=== PATIENT | female | born 1950 | race Caucasian/White ===

== ENCOUNTER 2023-12-31 17:14 | Observation (INO) | payer MEDICARE, SELFPAY ==
[2023-12-31] VITALS (19 sets, daily range): BP systolic 145–183; BP diastolic 70–90; PULSE 69–91; RESP 15–27; TEMP 36.3–37.1; O2SAT 100; BMI 16.9; BMI 15.6
--- NOTE | 2023-12-31 17:23 | XR_ITS ---
PROCEDURE INFORMATION: Exam: XR Chest Exam date and time: 12/31/2023 5:26 PM Age: 73 years old Clinical indication: Dyspnea TECHNIQUE: Imaging protocol: Radiologic exam of the chest. Views: 1 view. COMPARISON: No relevant prior studies available. FINDINGS: Lungs: Hyperinflated lungs consistent with emphysema. No consolidation. Mild left mid to lower lung linear scar versus atelectasis. Pleural spaces: Normal. No pleural effusion. No pneumothorax. Heart/Mediastinum: Coronary artery stent in place. No cardiomegaly. Vasculature: Tortuous atherosclerotic thoracic aorta. Bones/joints: Unremarkable. IMPRESSION: Hyperinflated lungs consistent with emphysema. No consolidation.
[2023-12-31 17:28] LABS: Coronavirus 19, PCR Not Detected (NotDetected); Influenza A, PCR Not Detected (NotDetected); Influenza B, PCR Not Detected (NotDetected)
[2023-12-31 17:30] LABS: Basophils % 0.5 % (0.1-2.0); Eosinophils % 0.4 % (0.1-12.0); Hematocrit 21.1 % (37.0-47.0); Lymphocytes # 1.5 K/mm3 (0.7-4.5); Lymphocytes % 19.2 % (10-50); Mean Corpuscular HGB Conc 28.3 g/dL (31.8-35.4); Mean Corpuscular Hemoglobin 19.6 pg (27.0-31.2); Mean Corpuscular Volume 69.2 fl (81-99); Mean Platelet Volume 7.4 fl (7.4-10.4); Monocytes # 0.5 K/mm3 (0.1-1.0); Monocytes % 5.8 % (1.7-9.3); Neutrophils # 5.9 K/mm3 (1.8-7.8); Platelet Count 486 K/mm3 (142-424); Red Blood Count 3.05 M/mm3 (4.20-5.40); Red Cell Distribution Width 17.7 % (11.5-17.5); White Blood Count 7.9 K/mm3 (4.8-10.8)
[2023-12-31 17:30] LABS: Lactate Venous 1.1 mmol/L (0.4-2.0); VBG Base Excess -3.5 mmol/L (-2.4-2.3); VBG HCO3 23.6 mmol/L (23-30); VBG Oxygen Saturation 65.1 % (50-70); VBG PH 7.26 mmol/L (7.31-7.41); VBG Total CO2 25.2 mmol/L (23-27)
[2023-12-31 17:36] LABS: Alanine Aminotransferase 21 U/L (12-78); Albumin/Globulin Ratio 1.3 (1.1-1.8); Alkaline Phosphatase 91 U/L (38-126); Anion Gap 11.8 mEq/L (5-15); Aspartate Amino Transferase 37 U/L (14-36); Bilirubin,Total 0.3 mg/dl (0.2-1.3); Blood Urea Nitrogen 28 mg/dl (7-17); Calcium 9.1 mg/dl (8.4-10.2); Carbon Dioxide 28 mmol/L (22.0-30.0); Chloride 98 mmol/L (98-107); Estimated Glomerular Filt Rate 49 ml/min (>60); GFR (African American) 59 ML/MIN (>60); Glucose 138 mg/dl (74-100); Potassium 4.8 mmoL/L (3.5-5.1); Sodium 133 mmol/L (136-145)
--- NOTE | 2023-12-31 17:40 | HMH.EDCP ---
Discharge Plan Disposition Patient Disposition: Admitted Clinical Impressions Clinical Impression: Acute hypercapnic respiratory failure, Anemia, Acute exacerbation of chronic obstructive airways disease Discharge ED Provider: Macarena Mulilns HPI General Chief Complaint: Shortness of Breath/Dyspnea Stated Complaint: SOA Time Seen by Provider: 12/31/23 17:23 History of Present Illness HPI narrative: Patient is a 73-year-old female presenting today with respiratory distress. She and her family who accompanied her at the bedside recently moved [place]. She has a known history of heart failure family does not know exactly what kind they are unsure of the exact medications that she is on. Apparently her oxygen tubing with her COPD which she is normally on 3 L nasal cannula ran out recently and the call primarily was followed that purpose. However EMS got to her and she was in severe respiratory distress placed on positive pressure ventilation which significantly improved her from their history no other medications were given and she arrived to the emergency department. She is in severe respiratory distress unable to speak in full sentences and history is limited. Secondary history is obtained from daughters at the bedside. Related Data Allergies Allergy/AdvReac Type Severity Reaction Status Date / Time No Known Allergies Allergy Verified 12/31/23 17:47 [facility] Disclaimer: The information contained in this section may have been updated after the patient was seen, as this information can be updated by other users. Social History Smoking Status: Current every day smoker alcohol intake: never current occupational status: other Travel in the last 8 weeks: None ROS Obtained: Yes All systems reviewed & no additional complaints except as documented Physical Exam General General appearance: in distress Respiratory Respiratory exam: Present other (Tachypneic speaking in one-word sentences oxygen saturations 100% on 3 L very minimal air movement bilaterally no significant wheezing there is prolonged expiratory phase) Cardiovascular Cardiovascular exam: Present tachycardia Abdominal Exam Abdominal exam: Present soft; Absent distention or tenderness Neurological Exam Neurological exam: Present alert, oriented X3 and other (Lethargic decreased level of alertness but able to answer questions appropriately nonfocal neurologic exam) HEART Score HEART Score HEART Score assessment performed?: Yes History (anamnesis): Slightly suspicious ECG: Non-specific disturbance Age: >65 years Risk factors: Atherosclerosis history Troponin: </= normal limit HEART Score: 5 Procedures Miscellaneous Procedure Procedure Performed: Limited cardiac ultrasound Indication: Dyspnea Identified structures: The heart was visualized in the parasternal long axis, parastenal short axis, apical four chamber and subxyphiod views. The IVC was visualized in the short axis and long axis at its entry into the right atrium. Findings: Normal LVEF no pericardial effusion no evidence of severe right heart strain Impression: Unremarkable limited bedside ultrasound of the heart Images were saved to permanent archive The study was technically adequate CPT: 81716-08 This study was performed by ak, and I personally interpreted all images/videos. Based on my clinical judgement, these images were added and did not necessitate further imaging. Limited lung ultrasound A focused ultrasound exam of the pleural spaces was performed to evaluate for pneumothorax, pulmonary edema, pleural effusion and/or consolidation. The ultrasound was performed with the following indications, as noted in the H&P: Dyspnea Identified structures: Right and left thoracic cavities were examined. Findings: Bilateral lung sliding present scant B-lines throughout no significant pleural effusions or focal consolidations bilaterally Impression: Nonspecific bilateral scant B-lines no evidence of pleural effusion consolidation or pneumothorax Images were saved to permanent archive The study was technically adequate CPT 20855-36 This study was performed by ak, and I personally interpreted all images/videos. Based on my clinical judgement, these images were adequate and did not necessitate further imaging. Critical Care Critical Care Time Critical Care Time: Yes Attestation: On , the high probability of a clinically significant, sudden or life threatening deterioration of the following system(s) required my full and direct attention, intervention and personal management. The time I documented below is in addition to time spent performing reported procedures but includes the following listed in this critical care notation. Total Time Total Critical Care Time: 65 Medical Decision Making Vasquez Inquiry Pt receiving controlled substance: No Vital Signs Vital Signs: 12/31/23 17:15 12/31/23 17:30 12/31/23 18:00 Temperature 98.8 F Temperature Source Axillary Pulse Rate 69 72 Pulse Rate [Right Radial] 71 Respiratory Rate 24 15 Blood Pressure 150/80 H 165/84 H Blood Pressure [Right Arm] 150/80 H Blood Pressure Mean [Right Arm] 103 Blood Pressure Source [Right Arm] Automatic Cuff Blood Pressure Position [Right Arm] Supine 02 Sat by Pulse Oximetry 100 100 100 Oxygen Delivery Method BiPAP BiPAP 12/31/23 18:30 Temperature Temperature Source Pulse Rate 72 Pulse Rate [Right Radial] Respiratory Rate 17 Blood Pressure 145/70 H Blood Pressure [Right Arm] Blood Pressure Mean [Right Arm] Blood Pressure Source [Right Arm] Blood Pressure Position [Right Arm] 02 Sat by Pulse Oximetry 100 Oxygen Delivery Method Lab Data Lab results reviewed: Yes I reviewed the patient's lab results. Labs: Lab Results 12/31/23 17:15: WBC 7.9, RBC 3.05 L, Hgb 6.0 L*, Hct 21.1 L, MCV 69.2 L, MCH 19.6 L, MCHC 28.3 L, RDW 17.7 H, Plt Count 486 H, MPV 7.4, Neut % (Auto) 74.0, Lymph % (Auto) 19.2, [place] % (Auto) 5.8, Eos % (Auto) 0.4, Baso % (Auto) 0.5, Neut # (Auto) 5.9, Lymph # (Auto) 1.5, [place] # (Auto) 0.5, Eos # (Auto) 0.0, Baso # (Auto) 0.0, D-Dimer 0.34, Sodium 133 L, Potassium 4.8, Chloride 98, Carbon Dioxide 28, Anion Gap 11.8, BUN 28 H, Creatinine 1.10 H, Estimated GFR 49 L, Est GFR ( Amer) 59, Glucose 138 H, Calcium 9.1, Total Bilirubin 0.3, AST 37 H, ALT 21, Alkaline Phosphatase 91, Troponin I < 0.01, NT-Pro-B Natriuret Pep 1460 H, Total Protein 7.0, Albumin 4.0, Globulin 3.0, Albumin/Globulin Ratio 1.3, SARS-CoV-2 (PCR) Not detected, Influenza A Untype (PCR) Not detected, Influenza Type B (PCR) Not detected 12/31/23 17:24: VBG pH 7.26 L, VBG pCO2 54.0 H, VBG pO2 37.0, VBG HCO3 23.6, VBG Total CO2 25.2, VBG O2 Saturation 65.1, VBG Base Excess -3.5 L, VBG Lactic Acid 1.1 12/31/23 17:45: Crossmatch (AHG) See Detail 12/31/23 17:15 12/31/23 17:15 Response Orders (Tests/Meds): ED MEDICATIONS Generic Name Dose Route Start Last Admin Trade Name Freq PRN Reason Stop Dose Admin Sodium Chloride 250 mls @ 25 mls/hr 12/31/23 18:00 Sod Chlor 0.9% 250ml Bag IV 01/01/24 17:59 .Q10H GRACIE Discontinued Medications Generic Name Dose Route Start Last Admin Trade Name Quan PRN Reason Stop Dose Admin Albuterol/Ipratropium 3 ml 12/31/23 17:23 12/31/23 17:42 Ipratropium/Albuterol 3 Ml Neb IH 12/31/23 17:24 3 ml ONCE ONE Administration Magnesium Sulfate 2 gm in 50 mls @ 50 mls/hr 12/31/23 17:23 12/31/23 17:47 Magnesium Sulfate 2gm/50ml Premix IV 12/31/23 18:22 50 mls/hr ONCE ONE Administration Methylprednisolone Sodium Succinate 125 mg 12/31/23 17:23 12/31/23 17:47 Methylprednisolone Sod Succ 125mg Vial IV 12/31/23 17:24 125 mg ONCE ONE Administration ORDERS Category Date Time Status Transfuse RBC's [Red Blood Cells] Stat K 12/31/23 17:45 Results Type and Screen Stat K 12/31/23 17:45 Results CXR --portable [XR chest portable] Stat Exams 12/31/23 17:23 Completed BNP [NT Pro Brain Natriuretic Pep.] Stat Lab 12/31/23 17:15 Completed CBC w/Auto Diff [Complete Blood Count Auto Diff] Stat Lab 12/31/23 17:15 Completed CMP [Comprehensive Metabolic Panel] Stat Lab 12/31/23 17:15 Completed D-Dimer Stat Lab 12/31/23 17:15 Completed Occult Blood,Stool Stat Lab 12/31/23 17:34 Ordered Rapid PCR Covid and Flu A/B Stat Lab 12/31/23 17:15 Completed Trop I [Troponin I] Stat Lab 12/31/23 17:15 Completed Troponin I Q3H Lab 12/31/23 20:30 Ordered Troponin I Q3H Lab 12/31/23 23:30 Ordered Blood Culture Stat Micro 12/31/23 18:10 Received Venous Blood Gas Stat RT 12/31/23 17:24 Completed Venous Blood Gas Stat RT 12/31/23 18:47 Ordered ECG Data Tracing #1: Attestation: I reviewed this ECG and interpreted as documented below: ECG Narrative: Ventricular rate of 70 normal sinus rhythm normal axis no acute ischemic changes no significant conduction abnormalities MDM Narrative Medical Decision Narrative: Critically ill-appearing 73-year-old female presenting in respiratory distress with increased work of breathing oxygen saturations appear to be normal. Venous blood gas was performed which did demonstrate pH of 7.25 with a pCO2 of 54. She is on BiPAP at this point. Limited bedside ultrasound was performed which did not show any severe right heart strain or diminished LVEF or pericardial effusion there was some scant B-lines working diagnosis is COPD exacerbation but heart failure pneumonia pulm embolism are certainly in the differential as well. On her gas her hemoglobin was less than 7 we will get a type and screen and do a rectal exam as well she does appear pale on my evaluation. But gives no history of any type of melena and she is not on any blood thinners or anticoagulants/antiplatelet agents to her knowledge. Reassessment 650 patient significantly improving on BiPAP we will repeat a blood gas soon and may trial her off her BiPAP soon. Chest x-ray was performed to person interpreted shows no obvious consolidation but will still cover with antibiotics given her moderate to severe COPD exacerbation. Will initiate Rocephin and azithromycin. D-dimer below threshold for CT PE pulm embolism is unlikely. BNP mildly elevated which is nonspecific may require further evaluation from a cardiac standpoint given her unclear history and lack of records here. Patient was significantly anemic I do not have a baseline hemoglobin after discussion with the patient she denies having any melena and being on any antiplatelets or anticoagulants. She refused a rectal exam but from a history standpoint she does not state that she has had any GI involvement. Patient did state that she had anemia requiring transfusion several years ago in [facility] she states that he had an investigation including endoscopies which did not yield any diagnosis or cause of her bleeding. Patient does have a remote history of uterine or cervical cancer and had a total hysterectomy about 20 years ago but states has been in remission has not had any other symptoms of that. Malignancy is certainly the differential but no emergent workup at this is indicated. 2 units of PRBCs have been ordered and pending currently she is hemodynamically stable. Patient will need to be admitted for further evaluation and management and I will discuss the case with hospital medicine for further treatment.
[2023-12-31 17:41] LABS: D-Dimer 0.34 ug/mL (0.0-0.5)
[2023-12-31] MEDS: IPRATROPIUM/ALBUTEROL 3 ML NEB IH ×2 (17:42→23:09)
--- NOTE | 2023-12-31 17:43 | PC.NURSE ---
hemoglobin of 6, aware of
--- NOTE | 2023-12-31 17:44 | ECG_ITS ---
APPROVED REPORT Exam: Resting ECG HR:70 bpm ECG Measurements Heart Rate 70 AXES WI 128 P 75 QRSd 86 QRS 85 QT 385 T 83 QTc 406 Conclusion SINUS RHYTHM POSSIBLE RIGHT ATRIAL ENLARGEMENT [0.25mV P-WAVE] BORDERLINE ECG UNCONFIRMED REPORT Electronically signed by : Juan Manuel Mullins, 01/01/2024 23:14:34
[2023-12-31] MEDS: MAGNESIUM SULFATE IN WATER 2 GM/50 ML PIGGYBACK IV (17:47)
[2023-12-31] MEDS: METHYLPREDNISOLONE SOD SUCC 125MG VIAL 125 MG IV (17:47)
[2023-12-31 17:50] LABS: NT Pro Brain Natriuretic Pep. 1460 pg/mL (0-125); Troponin I < 0.01 ng/ml (0.00-0.034)
[2023-12-31] MEDS: CEFTRIAXONE SODIUM 1 GM in 0.9 % SODIUM CHLORIDE 50 ML IV (19:03)
[2023-12-31 19:11] LABS: Lactate Venous 1.4 mmol/L (0.4-2.0); VBG Base Excess -3.4 mmol/L (-2.4-2.3); VBG Oxygen Saturation 81.3 % (50-70); VBG PCO2 39.7 mmol/L (35-51); VBG PH 7.36 mmol/L (7.31-7.41); VBG PO2 51.8 mmol/L (28-40); VBG Total CO2 23.2 mmol/L (23-27)
--- NOTE | 2023-12-31 19:30 | PC.NURSE ---
Lab called and informed that blood products are ready for patient administration. TRN spoke with ER physician Dr. Mullins and he states that there is not an emergent need for transfusion of blood products due to patient being hemodynamically stable. He requests report to be called and blood to be administered when patient gets settled on the floor. Charge nurse Kimberly Santiago, roundhouse supervisor Vanessa navarro. Return phone call to lab per TRN, spoke with Junie, and informed of blood administration plan.
[2023-12-31] MEDS: AZITHROMYCIN 500 MG in 0.9 % SODIUM CHLORIDE 250 ML 250 MG IV (19:39)
--- NOTE | 2023-12-31 19:40 | CT_ITS ---
PROCEDURE INFORMATION: Exam: CT Chest Without Contrast; Diagnostic Exam date and time: 12/31/2023 8:30 PM Age: 73 years old Clinical indication: Shortness of breath; Additional info: Abnormal cxr, tobacco > 50 yrs TECHNIQUE: Imaging protocol: Diagnostic computed tomography of the chest without contrast. Radiation optimization: All CT scans at this facility use at least one of these dose optimization techniques: automated exposure control; mA and/or kV adjustment per patient size (includes targeted exams where dose is matched to clinical indication); or iterative reconstruction. COMPARISON: CR XR CHEST PORTABLE 12/31/2023 5:26 PM FINDINGS: Lungs: Moderate centrilobular emphysema. Linear scar versus atelectasis in the anterior left upper lobe. No consolidation or nodules. Mild bronchial wall thickening. Pleural spaces: Unremarkable. No pneumothorax. No pleural effusion. Heart: Unremarkable. No cardiomegaly. No pericardial effusion. Coronary arteries: Severe coronary artery calcification. Lymph nodes: Unremarkable. No enlarged lymph nodes. Vasculature: Moderate thoracic aortic and arch vessel atherosclerotic disease without aneurysm. Bones/joints: Unremarkable. No acute fracture. Soft tissues: Unremarkable. IMPRESSION: 1. Mild bronchial wall thickening is likely due to bronchitis. No consolidation. 2. Moderate emphysema. COMMENTS: The presence of pulmonary emphysema on CT is an independent risk factor for lung cancer. In the absence of a history or active diagnosis of lung cancer, it is recommended that this patient with emphysema be evaluated for enrollment in a low dose CT lung cancer screening program.
--- NOTE | 2023-12-31 19:46 | PC.NURSE ---
called and spoke with rt sav. discussed need for sputum collection. states he will obtain once she arrives to the floor.
--- NOTE | 2023-12-31 19:53 | P.HP_ITS ---
History of Present Illness *Admission Date: 12/31/23 *Reason for visit:: Shortness of air *History of present illness: This is a 73-year-old female that presents to [facility] emergency department with concerns of shortness of air over several days not improving with home oxygen requirement 3 L via nasal cannula. Her past medical history is significant for ongoing tobacco dependence, COPD, CHF, CAD, chronic anemia and BMI 16. She is accompanied by her daughter who assists with the history. She reports chronic COPD on home oxygen (3 L) with increase air hunger, cough and debility over the last few days. She denies fever, chills, hemoptysis, retrosternal chest pain or falls. She reports no associated abdominal pain, hematemesis, melena or hematochezia. Today she became very weak so she was brought to the ED for evaluation. In the ED her oxygen saturations were low and she received NIPPV therapy in the ED. Imaging is concerning for bronchitis. Her hemoglobin came back at 6 and her MCV was 69. She reports a colonoscopy 5 to 7 years ago and EGD greater than 10 years ago. [facility] Medical History (Updated 12/31/23 @ 19:59 by Percy Zuniga MD) BMI less than 19,adult (HFpEF) heart failure with preserved ejection fraction Tobacco dependence Dependence on supplemental oxygen Coronary artery disease Iron deficiency anemia COPD (chronic obstructive pulmonary disease) Surgical History (Updated 12/31/23 @ 23:45 by Percy Zuniga MD) Hx of esophagogastroduodenoscopy History of colonoscopy History of hysterectomy History of heart artery stent S/P cardiac catheterization Family History (Updated 12/31/23 @ 23:46 by Percy Zuniga MD) Father Alzheimer disease Mother Stroke Social History (Updated 12/31/23 @ 21:27 by Bethany Sinclair RN) Smoking Status: Former smoker tobacco type: cigarettes packs per day: 1 years smoked: 60 smoking status stop date: 3 years ago alcohol intake: former current occupational status: other Travel in the last 8 weeks: None Review of Systems Review of Systems Review of systems:: pertinent systems reviewed and negative unless documented below Meds Home Medications and Allergies Home Medications Medication Instructions Recorded Confirmed Type atorvastatin 40 mg tablet 40 mg PO HS 12/31/23 12/31/23 History bupropion HCl 150 mg tablet,12 hr 150 mg PO BID 12/31/23 12/31/23 History sustained-release carvedilol 6.25 mg tablet 6.25 mg PO DAILY 12/31/23 12/31/23 History clopidogrel 75 mg tablet 75 mg PO DAILY 12/31/23 12/31/23 History hydrocodone 7.5 mg-acetaminophen 1 tab PO TID PRN Moderate Pain 12/31/23 12/31/23 History 325 mg tablet (Scale Score 5-6) isosorbide mononitrate 30 mg 30 mg PO DAILY 12/31/23 12/31/23 History tablet,extended release 24 hr meloxicam 15 mg tablet 15 mg PO DAILY 12/31/23 12/31/23 History montelukast 10 mg tablet 10 mg PO DAILY 12/31/23 12/31/23 History sertraline 100 mg tablet 200 mg PO DAILY 12/31/23 12/31/23 History New Prescriptions to Start Prescriptions: Allergies Allergy/AdvReac Type Severity Reaction Status Date / Time No Known Allergies Allergy Verified 12/31/23 17:47 Exam Data for Last 24 hours Vital signs and Labs for Last 24 Hours: Temp Pulse Resp BP Pulse Ox O2 Del Method 98.8 F 72 17 145/70 H 100 BiPAP 12/31/23 17:15 12/31/23 18:30 12/31/23 18:30 12/31/23 18:30 12/31/23 18:30 12/31/23 17:30 Laboratory Results - last 24 hr 12/31/23 17:15: WBC 7.9, RBC 3.05 L, Hgb 6.0 L*, Hct 21.1 L, MCV 69.2 L, MCH 19.6 L, MCHC 28.3 L, RDW 17.7 H, Plt Count 486 H, MPV 7.4, Neut % (Auto) 74.0, Lymph % (Auto) 19.2, [place] % (Auto) 5.8, Eos % (Auto) 0.4, Baso % (Auto) 0.5, Neut # (Auto) 5.9, Lymph # (Auto) 1.5, [place] # (Auto) 0.5, Eos # (Auto) 0.0, Baso # (Auto) 0.0, D-Dimer 0.34, Sodium 133 L, Potassium 4.8, Chloride 98, Carbon Compa xide 28, Anion Gap 11.8, BUN 28 H, Creatinine 1.10 H, Estimated GFR 49 L, Est GFR ( Amer) 59, Glucose 138 H, Calcium 9.1, Total Bilirubin 0.3, AST 37 H , ALT 21, Alkaline Phosphatase 91, Troponin I < 0.01, NT-Pro-B Natriuret Pep 1460 H, Total Protein 7.0, Albumin 4.0, Globulin 3.0, Albumin/Globulin Ratio 1.3, SARS-CoV-2 (PCR) Not detected, Influenza A Untype (PCR) Not detected, Influenza Type B (PCR) Not detected 12/31/23 17:18: Blood Type Confirm O Positive 12/31/23 17:24: VBG pH 7.26 L, VBG pCO2 54.0 H, VBG pO2 37.0, VBG HCO3 23.6, VBG Total CO2 25.2, VBG O2 Saturation 65.1, VBG Base Excess -3.5 L, VBG Lactic Acid 1.1 12/31/23 17:45: Blood Type O Positive, Antibody Screen Negative, Crossmatch (AHG) See Detail 12/31/23 19:02: VBG pH 7.36, VBG pCO2 39.7, VBG pO2 51.8 H, VBG HCO3 22.0 L, VBG Total CO2 23.2, VBG O2 Saturation 81.3 H, VBG Base Excess -3.4 L, VBG Lactic Acid 1.4 I & O for Last 24 hours: Intake & Output 12/28/23 12/29/23 12/30/23 12/31/23 23:59 23:59 23:59 23:59 Weight 40.823 kg Constitutional Constitutional: no acute distress, thin, chronically ill appearing, disheveled and cooperative *Routine HEENT Exam Head: Present normocephalic and atraumatic Eye: Present EOMI and PERRL ENT: Present mucous membranes dry *Routine Neck Exam Neck: Present supple; Absent JVD or lymphadenopathy *Routine Respiratory Exam Respiratory: Present accessory muscle use, rhonchi, wheezes and diminished air movement *Routine Cardiovascular Exam Cardiovascular: Present RRR and murmur; Absent JVD *Routine Abdominal Exam Abdominal: Present soft and normoactive bowel sounds; Absent tenderness *Routine Rectal Exam Rectal:: deferred *Routine Genitalia Exam Genitalia:: deferred *Routine Extremities Exam Extremities: Present full ROM, pulses intact and extremity cold to touch *Routine Skin Exam Skin: Present intact and pallor; Absent rash *Routine Neurological Exam Neurological: Present alert, oriented X3, moving all extremities, vision grossly intact and hearing grossly intact; Absent sensory deficit or motor deficit Routine Psychiatric Exam Psychiatric: Present normal affect, normal thought process, cooperative, good insight and good judgment Assessment and Plan *Assessment and plan (1) Acute respiratory failure with hypoxia and hypercapnia: Status: Acute Category: Medical Code(s): J96.01 - Acute respiratory failure with hypoxia; J96.02 - Acute respiratory failure with hypercapnia (2) Acute exacerbation of chronic obstructive airways disease: Status: Acute Category: Medical Code(s): J44.1 - Chronic obstructive pulmonary disease with (acute) exacerbation (3) Dependence on supplemental oxygen: Status: Acute Category: Medical Code(s): Z99.81 - Dependence on supplemental oxygen (4) Tobacco dependence: Status: Acute Category: Medical Code(s): F17.200 - Nicotine dependence, unspecified, uncomplicated (5) Iron deficiency anemia: Status: Acute Category: Medical Code(s): D50.9 - Iron deficiency anemia, unspecified (6) Coronary artery disease: Status: Acute Category: Medical Code(s): I25.10 - Atherosclerotic heart disease of [place] coronary artery without angina pectoris (7) Acute on chronic heart failure with preserved ejection fraction (HFpEF): Status: Acute Category: Medical Code(s): I50.33 - Acute on chronic diastolic (congestive) heart failure (8) BMI less than 19,adult: Status: Acute Category: Medical Code(s): Z68.1 - Body mass index [BMI] 19.9 or less, adult Plan This is a 73-year-old female with presenting shortness of air and fatigue with history of COPD and ongoing tobacco dependence that presented with a hemoglobin 6.0 with no identified bleeding or abdominal pain. Blood transfusion is ongoing with oxygen support and nebulizer therapy. Problems addressed as follows: Acute on chronic hypoxic and hypercapnic respiratory failure COPD exacerbation Tobacco dependence Pulse oximetry monitoring Oxygen therapy to maintain appropriate oxygen saturations NIPPV therapy ED imaging consistent with emphysema and bronchitis Trending labs and inflammatory markers Tobacco cessation education Doxycycline 100 mg p.o. twice daily Vandana/Suze inhalation therapy ICS therapy IV methylprednisolone therapy Nicotine replacement therapy Iron deficiency anemia Telemetry monitoring Presenting hemoglobin 6.0 Previous colonoscopy and EGD reported Trending CBC PPI therapy 2 units PRBCs (12/31/2023) Avoiding NSAIDs Avoiding antiplatelet therapy Acute on chronic HFpEF CAD Telemetry monitoring Avoiding antiplatelet therapy with hemoglobin of 6 Echocardiogram ordered ED ECG sinus rhythm rate 70 with QTc 406 MS Statin therapy Beta-uriel therapy Long-acting nitrate therapy Generalized anxiety disorder Routine nursing interaction SSRI therapy ED ECG with [id number] MS BMI 16 Nutrition education Calorie appropriate diet with nutritional supplementation Complicates all aspects of care VTE prophylaxis: SCD's CODE STATUS: Full code POA: Cammey-daughter The length of stay for this patient will be 2 midnights or greater due to above diagnoses.
--- NOTE | 2023-12-31 20:07 | PC.NURSE ---
report called to LOKESH Torres
[2023-12-31 20:50] LABS: Iron 23 ug/dL (37-170)
[2023-12-31 20:59] LABS: Total Iron Binding Capacity 454 ug/dL (265-497)
[2023-12-31 21:09] LABS: Vitamin B12 > 1000 pg/mL (239-931)
[2023-12-31 21:14] LABS: ABG Base Excess -4.6 mmol/L (-2.4-2.3); ABG HCO3 20.7 mmhg (22.0-26.0); ABG Oxygen Saturation 100 % (90-100); ABG PCO2 37.2 mmhg (35.0-45.0); ABG PH 7.36 mmol/L (7.35-7.45); ABG PO2 148.5 mmhg (80-100); ABG TCO2 21.9 mmhg (23-27)
[2023-12-31 21:16] LABS: Allen's Test Y; Oxygen 50 %; Source Left Radial
[2023-12-31 21:37] LABS: Troponin I < 0.01 ng/ml (0.00-0.034)
[2023-12-31] MEDS: 0.9 % SODIUM CHLORIDE 250 ML 25 ML IV (22:00)
[2023-12-31] MEDS: SODIUM CHLORIDE 3% 15ML NEB 3 ML IH (23:11)
[2023-12-31] MEDS: ATORVASTATIN 40MG TABLET 40 MG PO (23:34)
[2023-12-31] MEDS: HYDROCODONE/APAP 5/325 MG TABLET 1 TAB PO (23:34)
[2023-12-31] MEDS: PANTOPRAZOLE 40MG TABLET 40 MG PO (23:34)
--- NOTE | 2023-12-31 23:45 | PC.NURSE ---
PATIENT GIVEN SODIUM CHLORIDE TREATMENT BUT UNABLE TO PRODUCE SPUTUM
[2024-01-01] VITALS (20 sets, daily range): BP systolic 136–184; BP diastolic 65–100; PULSE 70–94; RESP 15–25; TEMP 36.6–37.1; O2SAT 95–100; BMI 15.6
[2024-01-01] MEDS: 0.9 % SODIUM CHLORIDE 250 ML 25 ML IV (00:40)
[2024-01-01 00:47] LABS: Troponin I < 0.01 ng/ml (0.00-0.034)
--- NOTE | 2024-01-01 02:17 | PC.NURSE ---
Pt reports she had a very significant nose bleed a couple of weeks ago. She stated she woke up in the middle of the night and her pillow and top of her blanket was covered in blood. She states she then completely soaked through a wash rag to the point it was dripping before they were able to get it to stop. Pt currently has humidity on her o2 to help prevent drying out her nasal passage.
[2024-01-01] MEDS: METHYLPREDNISOLONE SOD SUCC 40MG VIAL 40 MG IV ×2 (02:53→09:52)
--- NOTE | 2024-01-01 05:33 | PC.NURSE ---
Pt is a/o x4. Pt received 2 units of PRBC, tolerated well and states she feels less weak and SOA after receiving. Pt complained of chronic back pain 1x and PRN pain medication was administered, pt stated relief. Tolerating baseline 3 L nc w/ o2 sat at 100% for majority of night. Lung sounds diminished with scattered wheezing this AM. Unable to provide sputum sample thus far. Pt states she has had multiple falls at home in past 6 months, bed alarm on for pt safety. Call light within reach.
[2024-01-01 06:54] LABS: Basophils % 0.1 % (0.1-2.0); Eosinophils % 0.1 % (0.1-12.0); Hematocrit 29.3 % (37.0-47.0); Lymphocytes # 0.6 K/mm3 (0.7-4.5); Lymphocytes % 10.5 % (10-50); Mean Corpuscular HGB Conc 31.1 g/dL (31.8-35.4); Mean Corpuscular Hemoglobin 23.9 pg (27.0-31.2); Mean Corpuscular Volume 76.8 fl (81-99); Mean Platelet Volume 7.3 fl (7.4-10.4); Monocytes # 0.1 K/mm3 (0.1-1.0); Monocytes % 2.2 % (1.7-9.3); Neutrophils # 5.3 K/mm3 (1.8-7.8); Neutrophils % 87.1 % (37.0-80.0); Platelet Count 384 K/mm3 (142-424); Red Blood Count 3.81 M/mm3 (4.20-5.40)
[2024-01-01 06:55] LABS: Blood Urea Nitrogen 25 mg/dl (7-17); Calcium 9.1 mg/dl (8.4-10.2); Carbon Dioxide 21 mmol/L (22.0-30.0); Chloride 101 mmol/L (98-107); Creatinine Clearance Estimated 29 mL/min (50-200); Estimated Glomerular Filt Rate 54 ml/min (>60); GFR (African American) 66 ML/MIN (>60); Glucose 122 mg/dl (74-100); Sodium 134 mmol/L (136-145)
[2024-01-01] MEDS: IPRATROPIUM/ALBUTEROL 3 ML NEB IH ×2 (06:56→13:24)
[2024-01-01] MEDS: BUDESONIDE 0.5MG/2ML NEB 0.5 MG IH (06:56)
[2024-01-01 08:06] LABS: MANUAL DIFFERENTIAL MANUAL DIFFERENTIAL (MANUAL DIFF)
[2024-01-01 08:49] LABS: Lymphocytes % 17 % (10-50); Monocytes % 2 % (2-9); Neutrophils % 81 % (42-76); Total Cells Counted 100
[2024-01-01 08:51] LABS: Hemoglobin 9.1 g/dL (12.2-16.2); Hypochromasia 1+; Platelet Estimate Normal
[2024-01-01 09:38] LABS: Adenovirus,PCR Not Detected (NotDetected); Bordetella Pertussis Not Detected (NotDetected); Chlamydophila Pneumoniae, PCR Not Detected (NotDetected); Coronavirus 19, PCR Not Detected (NotDetected); Coronavirus 229E Not Detected (NotDetected); Coronavirus NL63 Not Detected (NotDetected); Coronavirus OC43 Not Detected (NotDetected); Coronovirus HKU1,PCR Not Detected (NotDetected); Human Metapneumovirus Not Detected (NotDetected); Influenza A, PCR Not Detected (NotDetected); Influenza AH1, 2009 Not Detected (NotDetected); Influenza AH1, PCR Not Detected (NotDetected); Influenza AH3,PCR Not Detected (NotDetected); Influenza B, PCR Not Detected (NotDetected); Mycoplasma Pneumoniae, PCR Not Detected (NotDetected); Parainfluenza 1, PCR Not Detected (NotDetected); Parainfluenza 2, PCR Not Detected (NotDetected); Parainfluenza 3, PCR Not Detected (NotDetected); Parainfluenza 4, PCR Not Detected (NotDetected); Respiratory Syncytial Virus Not Detected (NotDetected); Rhinovirus/Enterovirus Not Detected (NotDetected)
[2024-01-01] MEDS: FUROSEMIDE 40MG/4ML VIAL 40 MG IV (09:51)
[2024-01-01] MEDS: buPROPion HCl SR 150MG TAB 150 MG PO (09:51)
[2024-01-01] MEDS: CARVEDILOL 6.25MG TABLET 6.25 MG PO (09:52)
[2024-01-01] MEDS: ISOSORBIDE MONO 30MG TAB.ER.24H 30 MG PO (09:52)
[2024-01-01] MEDS: FOLIC ACID 1MG TABLET 1 MG PO (09:52)
[2024-01-01] MEDS: SERTRALINE 100MG TABLET 100 MG PO (09:52)
[2024-01-01] MEDS: PANTOPRAZOLE 40MG TABLET 40 MG PO (09:52)
[2024-01-01] MEDS: DOCUSATE SODIUM 100 MG CAPSULE PO (09:52)
[2024-01-01] MEDS: IRON SUCROSE COMPLEX 200 MG in 0.9 % SODIUM CHLORIDE 100 ML 220 MG IV (09:58)
--- NOTE | 2024-01-01 11:12 | P.DS_ITS ---
General Admission date:: 12/31/23 Discharge date: 01/01/24 HPI HPI HPI: This is a 73-year-old female that presents to [facility] emergency department with concerns of shortness of air over several days not improving with home oxygen requirement 3 L via nasal cannula. Her past medical history is significant for ongoing tobacco dependence, COPD, CHF, CAD, chronic anemia and BMI 16. She is accompanied by her daughter who assists with the history. She reports chronic COPD on home oxygen (3 L) with increase air hunger, cough and debility over the last few days. She denies fever, chills, hemoptysis, retrosternal chest pain or falls. She reports no associated abdominal pain, hematemesis, melena or hematochezia. Today she became very weak so she was brought to the ED for evaluation. In the ED her oxygen saturations were low and she received NIPPV therapy in the ED. Imaging is concerning for bronchitis. Her hemoglobin came back at 6 and her MCV was 69. She reports a colonoscopy 5 to 7 years ago and EGD greater than 10 years ago. Hospital Course Hospital Course Hospital Course: This is a 73-year-old female with presenting shortness of air and fatigue with history of COPD and ongoing tobacco dependence that presented with a hemoglobin 6.0 with no identified bleeding or abdominal pain. Blood transfusion initiated in the ER. Did well after transfusion. Stable at times on room air. Meeting criteria for discharge home. Needs to establish with a new PCP and follow-up with pulmonology in the coming month as an outpatient. Problems addressed as follows: Acute on chronic hypoxic and hypercapnic respiratory failure COPD exacerbation Tobacco dependence Patient initiated on oxygen on arrival and BiPAP briefly. Found to have normal white count. Chest imaging with hyperinflation but no focal consolidation. Started on steroids and antibiotics for COPD exacerbation. Will continue doxycycline 100 mg twice daily and prednisone 40 mg daily to complete 5-day course for COPD exacerbation. Back to baseline pulmonary function by morning. States she no longer smokes but does live with smokers. Tolerating breathing treatments. Respiratory panel negative. Suspect component of her dyspnea related to her significant iron deficient anemia. Iron deficiency anemia Presenting hemoglobin 6.0. Transfused 2 units. Previous colonoscopy and EGD with no abnormalities. Patient denies any black stools or bright red blood per rectum. On meloxicam at home and Plavix for CAD. Recommend discontinuing meloxicam at this time. Initiated on PPI. Given response to transfusion with improvement and stable finding of approximately 9 hemoglobin, will discharge home and recommend close follow-up with primary care for further management. Received 2 units packed red blood cells and 200 mg IV Venofer for her iron deficiency. Iron level significantly low. Would benefit from further supplementation in the future to address her remaining iron deficit. Would also benefit from consideration for colonoscopy to evaluate for any source of blood loss from her colon. Acute on chronic HFpEF CAD Monitor on telemetry. Patient diuresed x 1 after her 2 units of blood cells. Continued statin therapy, beta-uriel, long-acting nitrate. Generalized anxiety disorder Routine nursing interaction during admission. Continue home Wellbutrin 150 mg twice daily and Zoloft 200 mg daily BMI 16 Calorically dense diet. Recommend dietary supplementation at discharge. Cachexia likely related to her emphysema Total time spent on discharge 35 minutes in counseling, documentation, chart review, and direct care with patient. Exam Data for Last 24 hours Vital signs and Labs for Last 24 Hours: Temp Pulse Resp BP Pulse Ox O2 Del Method O2 Flow Rate 97.9 F 93 H 16 174/91 H 99 Nasal Cannula 2 01/01/24 08:00 01/01/24 08:00 01/01/24 08:00 01/01/24 08:00 01/01/24 08:00 01/01/24 06:56 01/01/24 06:56 FiO2 32 12/31/23 22:20 Laboratory Results - last 24 hr 12/31/23 17:15: WBC 7.9, RBC 3.05 L, Hgb 6.0 L*, Hct 21.1 L, MCV 69.2 L, MCH 19.6 L, MCHC 28.3 L, RDW 17.7 H, Plt Count 486 H, MPV 7.4, Neut % (Auto) 74.0, Lymph % (Auto) 19.2, [place] % (Auto) 5.8, Eos % (Auto) 0.4, Baso % (Auto) 0.5, Neut # (Auto) 5.9, Lymph # (Auto) 1.5, [place] # (Auto) 0.5, Eos # (Auto) 0.0, Baso # (Auto) 0.0, D-Dimer 0.34, Sodium 133 L, Potassium 4.8, Chloride 98, Carbon Dioxide 28, Anion Gap 11.8, BUN 28 H, Creatinine 1.10 H, Estimated GFR 49 L, Est GFR ( Amer) 59, Glucose 138 H, Calcium 9.1, Total Bilirubin 0.3, AST 37 H , ALT 21, Alkaline Phosphatase 91, Troponin I < 0.01, NT-Pro-B Natriuret Pep 1460 H, Total Protein 7.0, Albumin 4.0, Globulin 3.0, Albumin/Globulin Ratio 1.3, Chlamy pneumoniae PCR Not detected, Adenovirus (PCR) Not detected, B. pertussis DNA (PCR) Not detected, Coronavirus OC43 (PCR) Not detected, Coron avirus HKU1 (PCR) Not detected, Coronavirus 229E (PCR) Not detected, SARS-CoV-2 (PCR) Not detected 12/31/23 17:15: SARS-CoV-2 (PCR) Not detected, Coronavirus NL63 (PCR) Not dete cted, Human Metapneumovir PCR Not detected, Influenza A (H1) PCR Not detected, Influ A (H1N1/09) PCR Not detected, Influenza A (H3) PCR Not detected, Influenza Type A (PCR) Not detected, Influenza A Untype (PCR) Not detected, Influenza Type B (PCR) Not detected 12/31/23 17:15: Influenza Type B (PCR) Not detected, M. pneumoniae (PCR) Not detected, Parainfluenza 1 (PCR) Not detected, Parainfluenza 2 (PCR) Not detected, Parainfluenza 3 (PCR) Not detected, Parainfluenza 4 (PCR) Not detected, RSV (PCR) Not detected, Entero/Rhino (PCR) Not detected 12/31/23 17:18: Iron 23 L, TIBC 454, Iron Saturation 5.78601 L, Vitamin B12 > 1000 H, Procalcitonin 0.140, Blood Type Confirm O Positive 12/31/23 17:24: VBG pH 7.26 L, VBG pCO2 54.0 H, VBG pO2 37.0, VBG HCO3 23.6, VBG Total CO2 25.2, VBG O2 Saturation 65.1, VBG Base Excess -3.5 L, VBG Lactic Acid 1.1 12/31/23 17:45: Blood Type O Positive, Antibody Screen Negative, Crossmatch ([facility]) See Detail 12/31/23 19:02: VBG pH 7.36, VBG pCO2 39.7, VBG pO2 51.8 H, VBG HCO3 22.0 L, VBG Total CO2 23.2, VBG O2 Saturation 81.3 H, VBG Base Excess -3.4 L, VBG Lactic Acid 1.4 12/31/23 19:40: Specimen Source Left radial, O2 % 50, ABG pH 7.36, ABG pCO2 37.2, ABG pO2 148.5 H, ABG HCO3 20.7 L, ABG Total CO2 21.9 L, ABG O2 Saturation 100, ABG Base Excess -4.6 L, Arturo Test Y 12/31/23 20:50: Troponin I < 0.01 12/31/23 23:40: Troponin I < 0.01 01/01/24 05:23: WBC 6.0, RBC 3.81 L, Hgb 9.1 L D, Hct 29.3 L, MCV 76.8 L, MCH 23.9 L, MCHC 31.1 L, RDW 22.0 H, Plt Count 384, MPV 7.3 L, Neut % (Auto) 87.1 H, Lymph % (Auto) 10.5, [place] % (Auto) 2.2, Eos % (Auto) 0.1, Baso % (Auto) 0.1, Neut # (Auto) 5.3, Lymph # (Auto) 0.6 L, [place] # (Auto) 0.1, Eos # (Auto) 0.0, Baso # (Auto) 0.0, Total Counted 100, Neutrophils % (Manual) 81 H, Lymphocytes % (Manual) 17, Monocytes % (Manual) 2, Platelet Estimate Normal, Hypochromasia 1+, Sodium 134 L, Potassium 4.0, Chloride 101, Carbon Dioxide 21 L, Anion Gap 16.0 H , BUN 25 H, Creatinine 1.00, Estimated Creat Clear 29, Estimated GFR 54 L, Est GFR ( Amer) 66, Glucose 122 H, Calcium 9.1 I & O for Last 24 hours: Intake & Output 12/29/23 12/30/23 12/31/23 01/01/24 23:59 23:59 23:59 23:59 Intake Total 0 / 0 980 / 980 Output Total 100 / 100 1100 / 1100 Balance -100 / -100 -120 / -120 Weight 37.557 kg 37.557 kg Constitutional Constitutional: no acute distress, cachectic, chronically ill appearing and cooperative *Routine HEENT Exam Head: Present normocephalic Eye: Present EOMI and PERRL ENT: Present mucous membranes moist *Routine Neck Exam Neck: Present supple; Absent lymphadenopathy *Routine Respiratory Exam Respiratory: Present prolonged expiratory phase, distant breath sounds and diminished air movement; Absent rhonchi, wheezes or crackles *Routine Cardiovascular Exam Cardiovascular: Present RRR *Routine Abdominal Exam Abdominal: Present soft and normoactive bowel sounds; Absent tenderness *Routine Rectal Exam Patient deferred: visual exam *Routine Exam Patient deferred: external exam *Routine Extremities Exam Extremities: Absent cyanosis, clubbing or edema *Routine Skin Exam Skin: Present warm; Absent rash *Routine Neurological Exam Neurological: Present alert, oriented X3 and moving all extremities; Absent altered mental status Results Data Completed and Pending Labs on day of discharge: Labs from last 24 hours 01/01/24 12/31/23 12/31/23 05:23 23:40 20:50 WBC 6.0 RBC 3.81 L Hgb 9.1 L D Hct 29.3 L MCV 76.8 L MCH 23.9 L MCHC 31.1 L RDW 22.0 H Plt Count 384 MPV 7.3 L Neut % (Auto) 87.1 H Lymph % (Auto) 10.5 [place] % (Auto) 2.2 Eos % (Auto) 0.1 Baso % (Auto) 0.1 Neut # (Auto) 5.3 Lymph # (Auto) 0.6 L [place] # (Auto) 0.1 Eos # (Auto) 0.0 Baso # (Auto) 0.0 Total Counted 100 Neutrophils % (Manual) 81 H Lymphocytes % (Manual) 17 Monocytes % (Manual) 2 Platelet Estimate Normal Hypochromasia 1+ D-Dimer Specimen Source O2 % ABG pH ABG pCO2 ABG pO2 ABG HCO3 ABG Total CO2 ABG O2 Saturation ABG Base Excess Arturo Test VBG pH VBG pCO2 VBG pO2 VBG HCO3 VBG Total CO2 VBG O2 Saturation VBG Base Excess VBG Lactic Acid Sodium 134 L Potassium 4.0 Chloride 101 Carbon Dioxide 21 L Anion Gap 16.0 H BUN 25 H Creatinine 1.00 Estimated Creat Clear 29 Estimated GFR 54 L Est GFR ( Amer) 66 Glucose 122 H Calcium 9.1 Iron TIBC Iron Saturation Total Bilirubin AST ALT Alkaline Phosphatase Troponin I < 0.01 < 0.01 NT-Pro-B Natriuret Pep Total Protein Albumin Globulin Albumin/Globulin Ratio Vitamin B12 Procalcitonin Chlamy pneumoniae PCR Adenovirus (PCR) B. pertussis DNA (PCR) Coronavirus OC43 (PCR) Coronavirus HKU1 (PCR) Coronavirus 229E (PCR) SARS-CoV-2 (PCR) Coronavirus NL63 (PCR) Human Metapneumovir PCR Influenza A (H1) PCR Influ A (H1N1/09) PCR Influenza A (H3) PCR Influenza Type A (PCR) Influenza A Untype (PCR) Influenza Type B (PCR) M. pneumoniae (PCR) Parainfluenza 1 (PCR) Parainfluenza 2 (PCR) Parainfluenza 3 (PCR) Parainfluenza 4 (PCR) RSV (PCR) Entero/Rhino (PCR) Blood Type Blood Type Confirm Antibody Screen Crossmatch ([facility]) 12/31/23 12/31/23 12/31/23 19:40 19:02 17:45 WBC RBC Hgb Hct MCV MCH MCHC RDW Plt Count MPV Neut % (Auto) Lymph % (Auto) [place] % (Auto) Eos % (Auto) Baso % (Auto) Neut # (Auto) Lymph # (Auto) [place] # (Auto) Eos # (Auto) Baso # (Auto) Total Counted Neutrophils % (Manual) Lymphocytes % (Manual) Monocytes % (Manual) Platelet Estimate Hypochromasia D-Dimer Specimen Source Left radial O2 % 50 ABG pH 7.36 ABG pCO2 37.2 ABG pO2 148.5 H ABG HCO3 20.7 L ABG Total CO2 21.9 L ABG O2 Saturation 100 ABG Base Excess -4.6 L Arturo Test Y VBG pH 7.36 VBG pCO2 39.7 VBG pO2 51.8 H VBG HCO3 22.0 L VBG Total CO2 23.2 VBG O2 Saturation 81.3 H VBG Base Excess -3.4 L VBG Lactic Acid 1.4 Sodium Potassium Chloride Carbon Dioxide Anion Gap BUN Creatinine Estimated Creat Clear Estimated GFR Est GFR ( Amer) Glucose Calcium Iron TIBC Iron Saturation Total Bilirubin AST ALT Alkaline Phosphatase Troponin I NT-Pro-B Natriuret Pep Total Protein Albumin Globulin Albumin/Globulin Ratio Vitamin B12 Procalcitonin Chlamy pneumoniae PCR Adenovirus (PCR) B. pertussis DNA (PCR) Coronavirus OC43 (PCR) Coronavirus HKU1 (PCR) Coronavirus 229E (PCR) SARS-CoV-2 (PCR) Coronavirus NL63 (PCR) Human Metapneumovir PCR Influenza A (H1) PCR Influ A (H1N1/09) PCR Influenza A (H3) PCR Influenza Type A (PCR) Influenza A Untype (PCR) Influenza Type B (PCR) M. pneumoniae (PCR) Parainfluenza 1 (PCR) Parainfluenza 2 (PCR) Parainfluenza 3 (PCR) Parainfluenza 4 (PCR) RSV (PCR) Entero/Rhino (PCR) Blood Type O Positive Blood Type Confirm Antibody Screen Negative Crossmatch ([facility]G) See Detail 12/31/23 12/31/23 12/31/23 17:24 17:18 17:15 WBC RBC Hgb Hct MCV MCH MCHC RDW Plt Count MPV Neut % (Auto) Lymph % (Auto) [place] % (Auto) Eos % (Auto) Baso % (Auto) Neut # (Auto) Lymph # (Auto) [place] # (Auto) Eos # (Auto) Baso # (Auto) Total Counted Neutrophils % (Manual) Lymphocytes % (Manual) Monocytes % (Manual) Platelet Estimate Hypochromasia D-Dimer Specimen Source O2 % ABG pH ABG pCO2 ABG pO2 ABG HCO3 ABG Total CO2 ABG O2 Saturation ABG Base Excess Arturo Test VBG pH 7.26 L VBG pCO2 54.0 H VBG pO2 37.0 VBG HCO3 23.6 VBG Total CO2 25.2 VBG O2 Saturation 65.1 VBG Base Excess -3.5 L VBG Lactic Acid 1.1 Sodium Potassium Chloride Carbon Dioxide Anion Gap BUN Creatinine Estimated Creat Clear Estimated GFR Est GFR ( Amer) Glucose Calcium Iron 23 L TIBC 454 Iron Saturation 5.01790 L Total Bilirubin AST ALT Alkaline Phosphatase Troponin I NT-Pro-B Natriuret Pep Total Protein Albumin Globulin Albumin/Globulin Ratio Vitamin B12 > 1000 H Procalcitonin 0.140 Chlamy pneumoniae PCR Adenovirus (PCR) B. pertussis DNA (PCR) Coronavirus OC43 (PCR) Coronavirus HKU1 (PCR) Coronavirus 229E (PCR) SARS-CoV-2 (PCR) Coronavirus NL63 (PCR) Human Metapneumovir PCR Influenza A (H1) PCR Influ A (H1N1/09) PCR Influenza A (H3) PCR Influenza Type A (PCR) Influenza A Untype (PCR) Influenza Type B (PCR) Not detected M. pneumoniae (PCR) Not detected Parainfluenza 1 (PCR) Not detected Parainfluenza 2 (PCR) Not detected Parainfluenza 3 (PCR) Not detected Parainfluenza 4 (PCR) Not detected RSV (PCR) Not detected Entero/Rhino (PCR) Not detected Blood Type Blood Type Confirm O Positive Antibody Screen Crossmatch ([facility]) 12/31/23 12/31/23 17:15 17:15 WBC 7.9 RBC 3.05 L Hgb 6.0 L* Hct 21.1 L MCV 69.2 L MCH 19.6 L MCHC 28.3 L RDW 17.7 H Plt Count 486 H MPV 7.4 Neut % (Auto) 74.0 Lymph % (Auto) 19.2 [place] % (Auto) 5.8 Eos % (Auto) 0.4 Baso % (Auto) 0.5 Neut # (Auto) 5.9 Lymph # (Auto) 1.5 [place] # (Auto) 0.5 Eos # (Auto) 0.0 Baso # (Auto) 0.0 Total Counted Neutrophils % (Manual) Lymphocytes % (Manual) Monocytes % (Manual) Platelet Estimate Hypochromasia D-Dimer 0.34 Specimen Source O2 % ABG pH ABG pCO2 ABG pO2 ABG HCO3 ABG Total CO2 ABG O2 Saturation ABG Base Excess Arturo Test VBG pH VBG pCO2 VBG pO2 VBG HCO3 VBG Total CO2 VBG O2 Saturation VBG Base Excess VBG Lactic Acid Sodium 133 L Potassium 4.8 Chloride 98 Carbon Dioxide 28 Anion Gap 11.8 BUN 28 H Creatinine 1.10 H Estimated Creat Clear Estimated GFR 49 L Est GFR ( Amer) 59 Glucose 138 H Calcium 9.1 Iron TIBC Iron Saturation Total Bilirubin 0.3 AST 37 H ALT 21 Alkaline Phosphatase 91 Troponin I < 0.01 NT-Pro-B Natriuret Pep 1460 H Total Protein 7.0 Albumin 4.0 Globulin 3.0 Albumin/Globulin Ratio 1.3 Vitamin B12 Procalcitonin Chlamy pneumoniae PCR Not detected Adenovirus (PCR) Not detected B. pertussis DNA (PCR) Not detected Coronavirus OC43 (PCR) Not detected Coronavirus HKU1 (PCR) Not detected Coronavirus 229E (PCR) Not detected SARS-CoV-2 (PCR) Not detected Not detected Coronavirus NL63 (PCR) Not detected Human Metapneumovir PCR Not detected Influenza A (H1) PCR Not detected Influ A (H1N1/09) PCR Not detected Influenza A (H3) PCR Not detected Influenza Type A (PCR) Not detected Influenza A Untype (PCR) Not detected Influenza Type B (PCR) Not detected M. pneumoniae (PCR) Parainfluenza 1 (PCR) Parainfluenza 2 (PCR) Parainfluenza 3 (PCR) Parainfluenza 4 (PCR) RSV (PCR) Entero/Rhino (PCR) Blood Type Blood Type Confirm Antibody Screen Crossmatch ([facility]) DS: Diagnosis Discharge Diagnosis (1) Acute respiratory failure with hypoxia and hypercapnia: Status: Acute Code(s): J96.01 - Acute respiratory failure with hypoxia; J96.02 - Acute respiratory failure with hypercapnia (2) Acute exacerbation of chronic obstructive airways disease: Status: Acute Code(s): J44.1 - Chronic obstructive pulmonary disease with (acute) exacerbation (3) Dependence on supplemental oxygen: Status: Acute Code(s): Z99.81 - Dependence on supplemental oxygen (4) Tobacco dependence: Status: Acute Code(s): F17.200 - Nicotine dependence, unspecified, uncomplicated (5) Iron deficiency anemia: Status: Acute Code(s): D50.9 - Iron deficiency anemia, unspecified (6) Coronary artery disease: Status: Acute Code(s): I25.10 - Atherosclerotic heart disease of [place] coronary artery without angina pectoris (7) Acute on chronic heart failure with preserved ejection fraction (HFpEF): Status: Acute Code(s): I50.33 - Acute on chronic diastolic (congestive) heart failure (8) BMI less than 19,adult: Status: Acute Code(s): Z68.1 - Body mass index [BMI] 19.9 or less, adult Meds Home Medications and Allergies Home Medications Medication Instructions Recorded Confirmed Type atorvastatin 40 mg tablet 40 mg PO HS 12/31/23 12/31/23 History bupropion HCl 150 mg tablet,12 hr 150 mg PO BID 12/31/23 12/31/23 History sustained-release carvedilol 6.25 mg tablet 6.25 mg PO DAILY 12/31/23 12/31/23 History clopidogrel 75 mg tablet 75 mg PO DAILY 12/31/23 12/31/23 History hydrocodone 7.5 mg-acetaminophen 1 tab PO TID PRN Moderate Pain 12/31/23 12/31/23 History 325 mg tablet (Scale Score 5-6) isosorbide mononitrate 30 mg 30 mg PO DAILY 12/31/23 12/31/23 History tablet,extended release 24 hr meloxicam 15 mg tablet 15 mg PO DAILY 12/31/23 12/31/23 History montelukast 10 mg tablet 10 mg PO DAILY 12/31/23 12/31/23 History sertraline 100 mg tablet 200 mg PO DAILY 12/31/23 12/31/23 History doxycycline hyclate 100 mg tablet 100 mg PO BID 4 days #8 tabs 01/01/24 Rx ergocalciferol (vitamin D2) 1,250 1,250 mcg PO WEEKLY 01/01/24 01/01/24 History mcg (50,000 unit) capsule (Vitamin D2) folic acid 1 mg tablet 1 mg PO DAILY 01/01/24 01/01/24 History pantoprazole 40 mg tablet,delayed 40 mg PO DAILY 30 days #30 tabs 01/01/24 Rx release prednisone 20 mg tablet 40 mg (2 x 20 mg) PO DAILY 4 days 01/01/24 Rx #8 tabs New Prescriptions to Start Prescriptions: doxycycline hyclate Juan Manuel Stringer pantoprazole Juan Manuel Stringer prednisone Juan Manuel Stringer Allergies Allergy/AdvReac Type Severity Reaction Status Date / Time No Known Allergies Allergy Verified 12/31/23 17:47 Discharge Plan Disposition Patient Disposition: Home, Self-Care Condition: Fair Follow up Plan Follow up with: Nora Vega MD [Physician] - Enter time for follow up (2-4 weeks please call for appointment ) Kumar Pink MD [Staff Physician] - Enter time for follow up (1-2 weeks please call for appointment) Prescriptions/Medication Reconciliation: New pantoprazole 40 mg Tablet,Delayed Release (Dr/Ec) 40 mg PO DAILY 30 Days Qty: 30 0RF doxycycline hyclate 100 mg Tablet 100 mg PO BID 4 Days Qty: 8 0RF prednisone 20 mg tablet 40 mg PO DAILY 4 Days Qty: 8 0RF Continued atorvastatin 40 mg tablet 40 mg PO HS bupropion HCl 150 mg tablet sustained-release 12 hr 150 mg PO BID carvedilol 6.25 mg tablet 6.25 mg PO DAILY isosorbide mononitrate 30 mg tablet extended release 24 hr 30 mg PO DAILY sertraline 100 mg tablet 200 mg PO DAILY clopidogrel 75 mg tablet 75 mg PO DAILY hydrocodone-acetaminophen 7.5-325 mg tablet 1 tab PO TID PRN (Reason: Moderate Pain (Scale Score 5-6)) montelukast 10 mg tablet 10 mg PO DAILY folic acid 1 mg Tablet 1 mg PO DAILY ergocalciferol (vitamin D2) [Vitamin D2] 1,250 mcg (50,000 unit) Capsule 1,250 mcg PO WEEKLY Held meloxicam 15 mg tablet 15 mg PO DAILY Hold Instructions: Pending outpatient follow-up, may be causing irritation of stomach and anemia Problem Reconciliation Problems Reviewed?: Yes Patient Discharge Instructions ACTIVITY: Continue current activity DIET: continue same diet Patient Instructions: DI for Chronic Obstructive Pulmonary Disease, DI for Shortness of Breath, How to Manage Shortness of Breath Providers Primary Care Provider: Eva Bridges Admit Provider: Juan Manuel Stringer Attending Provider: Juan Manuel Stringer
[2024-01-01 16:13] LABS: Hematocrit 28.3 % (37.0-47.0); Hemoglobin 8.9 g/dL (12.2-16.2)
--- NOTE | 2024-01-03 11:48 | CARE MANAGER ---
Unable to reach patient via phone to discuss recent discharge. Call attempted X 2 and VM was left.
== END 2024-01-01 17:19 | disposition home or self-care (01) ==
LOC: ER 19:20 → 2ND 19:32
PROVIDERS: Family Medicine; Admitting Provider Internal Medicine Adolescent Medicine; Emergency Provider Student in an Organized Health Care Education/Training Program; PCP Nurse Practitioner Family; Visit Provider Internal Medicine Adolescent Medicine
DX: J96.21 Acute and chronic respiratory failure with hypoxia (principal); J44.1 Chronic obstructive pulmonary disease with (acute) exacerbation; Z99.81 Dependence on supplemental oxygen; F17.210 Nicotine dependence, cigarettes, uncomplicated; D50.9 Iron deficiency anemia, unspecified; I25.10 Atherosclerotic heart disease of native coronary artery without angina pectoris; I50.33 Acute on chronic diastolic (congestive) heart failure; Z68.1 Body mass index [BMI] 19.9 or less, adult; Z79.899 Other long term (current) drug therapy; J96.22 Acute and chronic respiratory failure with hypercapnia; R64 Cachexia; Z95.5 Presence of coronary angioplasty implant and graft
CPT/HCPCS: 36415; 36430; 71045; 71250; 80048; 80053; 82607; 82803; 83540; 83550; 83880; 84145; 84484; 85007; 85014; 85018; 85025; 85378; 86850; 87040; 87077; 87186; 87581; 87632; 87635; 87636; 87798; 93005; 94640; 94660; 94760; 99291; G0378; J0456; J0696; J1756; J3475; P9016

== ENCOUNTER 2024-03-23 17:39 | Observation (INO) | payer MEDICARE, SELFPAY ==
[2024-03-23] VITALS (10 sets, daily range): BP systolic 126–182; BP diastolic 49–116; PULSE 70–103; RESP 16–24; TEMP 36.6–37.2; O2SAT 98–100; BMI 15.0; BMI 16.0
--- NOTE | 2024-03-23 17:40 | XR_ITS ---
PROCEDURE INFORMATION: Exam: XR Chest Exam date and time: 03/23/2024 5:45 PM Age: 73 years old Clinical indication: Shortness of breath; Additional info: SOA TECHNIQUE: Imaging protocol: Radiologic exam of the chest. Views: 1 view. COMPARISON: CT CHEST WO CON 12/31/2023 8:30 PM FINDINGS: Lungs: Severe pulmonary hyperinflation consistent with emphysema. No acute infiltrates. Pleural spaces: There is no evidence for pneumothorax. Heart/Mediastinum: The heart size is within normal limits. Bones/joints: Unremarkable. IMPRESSION: 1. Severe pulmonary hyperinflation consistent with emphysema. 2. No acute infiltrates. 3. There is no evidence for pneumothorax.
--- NOTE | 2024-03-23 17:40 | ECG_ITS ---
APPROVED REPORT Exam: Resting ECG HR:84 bpm ECG Measurements Heart Rate [address] 123 P 81 QRSd 93 QRS 79 QT 356 T 77 QTc 397 Conclusion SINUS RHYTHM RIGHT ATRIAL ENLARGEMENT [0.3mV P-WAVE] ABNORMAL ECG No stemi Electronically signed by : DEYA BULLARD, 03/24/2024 03:40:58
[2024-03-23 17:49] LABS: Basophils % 0.3 % (0.1-2.0); Eosinophils # 0.4 K/mm3 (0.0-0.4); Eosinophils % 2.9 % (0.1-12.0); Hematocrit 38.2 % (37.0-47.0); Hemoglobin 11.4 g/dL (12.2-16.2); Lymphocytes # 5.9 K/mm3 (0.7-4.5); Lymphocytes % 45.6 % (10-50); Mean Corpuscular HGB Conc 29.8 g/dL (31.8-35.4); Mean Corpuscular Hemoglobin 26.2 pg (27.0-31.2); Mean Corpuscular Volume 87.9 fl (81-99); Mean Platelet Volume 6.9 fl (7.4-10.4); Monocytes # 0.8 K/mm3 (0.1-1.0); Monocytes % 6.4 % (1.7-9.3); Neutrophils # 5.8 K/mm3 (1.8-7.8); Neutrophils % 44.8 % (37.0-80.0); Platelet Count 409 K/mm3 (142-424); Red Blood Count 4.35 M/mm3 (4.20-5.40); Red Cell Distribution Width 19.9 % (11.5-17.5); White Blood Count 12.8 K/mm3 (4.8-10.8)
[2024-03-23 17:50] LABS: Lactate Venous 1.8 mmol/L (0.4-2.0); VBG Base Excess -4.3 mmol/L (-2.4-2.3); VBG HCO3 22.8 mmol/L (23-30); VBG Oxygen Saturation 93.1 % (50-70); VBG PH 7.26 mmol/L (7.31-7.41); VBG PO2 73.8 mmol/L (28-40); VBG Total CO2 24.4 mmol/L (23-27)
[2024-03-23 17:52] LABS: VBG PCO2 52.1 mmol/L (35-51)
[2024-03-23 18:05] LABS: Albumin Level 4.3 g/dl (3.5-5.0); Chloride 108 mmol/L (98-107); Potassium 5.2 mmoL/L (3.5-5.1); Sodium 141 mmol/L (136-145)
[2024-03-23 18:06] LABS: Blood Urea Nitrogen 24 mg/dl (7-17); Creatinine Clearance Estimated 30 mL/min (50-200); Estimated Glomerular Filt Rate 70 ml/min (>60); GFR (African American) 85 ML/MIN (>60)
[2024-03-23 18:07] LABS: Alanine Aminotransferase 41 U/L (12-78); Albumin/Globulin Ratio 1.4 (1.1-1.8); Alkaline Phosphatase 149 U/L (38-126); Anion Gap 9.2 mEq/L (5-15); Aspartate Amino Transferase 55 U/L (14-36); Bilirubin,Total 0.4 mg/dl (0.2-1.3); Calcium 8.6 mg/dl (8.4-10.2); Carbon Dioxide 29 mmol/L (22.0-30.0); Glucose 105 mg/dl (74-100); Total Protein,Serum 7.3 g/dl (6.3-8.2)
[2024-03-23] MEDS: CEFTRIAXONE SODIUM 2 GM in 0.9 % SODIUM CHLORIDE 100 ML IV (18:07)
[2024-03-23] MEDS: METHYLPREDNISOLONE SOD SUCC 125MG VIAL 125 MG IV (18:07)
[2024-03-23 18:17] LABS: NT Pro Brain Natriuretic Pep. 144 pg/mL (0-125)
[2024-03-23 18:20] LABS: Troponin I < 0.01 ng/ml (0.00-0.034)
[2024-03-23] MEDS: IPRATROPIUM/ALBUTEROL 3 ML NEB IH (18:25)
--- NOTE | 2024-03-23 19:09 | ED_ITS ---
Discharge Plan Disposition Patient Disposition: Admitted Condition: Serious Clinical Impressions Clinical Impression: Distressed breathing Discharge ED Provider: Sánchez Case HPI General Chief Complaint: Shortness of Breath/Dyspnea Stated Complaint: SOB Time Seen by Provider: 03/23/24 17:40 Mode of Arrival: EMS Source of Information: Patient and EMS Limitations: No Limitations Description of Symptoms (Recalled from ER Triage Doc. by RN): pt presents to ED via [facility] ems for shortness of breath. pt unable to answer anything beyond yes and no questions. pt significant history of COPD, wears 3L NC baseline. shortness of breath ongoing for the past 3-4 days. History of Present Illness HPI narrative: 73yoF presents via EMS due to shortness of breath for last 3-4 days which worsened today. HX COPD on 3L NC at baseline. Patient has had COPD exacerbation in past, reports this is similar to a previous episode. Patient was placed on CPAP by EMS with improvement in symptoms. She denies any recent illness, fever, runny nose, cough, or chest pain. PMH: tobacco dependence, COPD, CHF, CAD, chronic anemia Related Data Home Medications ?Medication ?Instructions ?Recorded ?Confirmed atorvastatin 40 mg tablet 40 mg PO HS 12/31/23 03/23/24 bupropion HCl 150 mg tablet,12 hr 150 mg PO BID 12/31/23 03/23/24 sustained-release carvedilol 6.25 mg tablet 6.25 mg PO DAILY 12/31/23 03/23/24 clopidogrel 75 mg tablet 75 mg PO DAILY 12/31/23 03/23/24 hydrocodone 7.5 mg-acetaminophen 1 tab PO TID PRN Moderate Pain 12/31/23 03/23/24 325 mg tablet (Scale Score 5-6) isosorbide mononitrate 30 mg 30 mg PO DAILY 12/31/23 03/23/24 tablet,extended release 24 hr meloxicam 15 mg tablet 15 mg PO DAILY 12/31/23 03/23/24 montelukast 10 mg tablet 10 mg PO DAILY 12/31/23 03/23/24 sertraline 100 mg tablet 200 mg PO BID 12/31/23 03/23/24 ergocalciferol (vitamin D2) 1,250 1,250 mcg PO WEEKLY 01/01/24 03/23/24 mcg (50,000 unit) capsule (Vitamin D2) folic acid 1 mg tablet 1 mg PO DAILY 01/01/24 03/23/24 Previous Rx's ?Medication ?Instructions ?Recorded pantoprazole 40 mg tablet,delayed 40 mg PO DAILY 30 days #30 tabs 01/01/24 release Allergies Allergy/AdvReac Type Severity Reaction Status Date / Time No Known Allergies Allergy Verified 12/31/23 17:47 [facility] Disclaimer: The information contained in this section may have been updated after the patient was seen, as this information can be updated by other users. Medical History (Updated 03/23/24 @ 22:56 by Matt Heath APRN) BMI less than 19,adult (HFpEF) heart failure with preserved ejection fraction Tobacco dependence Dependence on supplemental oxygen Coronary artery disease Iron deficiency anemia COPD (chronic obstructive pulmonary disease) Surgical History (Updated 12/31/23 @ 23:45 by Percy Zuniga MD) Hx of esophagogastroduodenoscopy History of colonoscopy History of hysterectomy History of heart artery stent S/P cardiac catheterization Family History (Updated 12/31/23 @ 23:46 by Percy Zuniga MD) Father Alzheimer disease Mother Stroke Social History (Updated 12/31/23 @ 21:27 by Bethany Sinclair RN) Smoking Status: Former smoker tobacco type: cigarettes packs per day: 1 years smoked: 60 smoking status stop date: 3 years ago alcohol intake: former current occupational status: other Travel in the last 8 weeks: None ROS Obtained: Yes Systems reviewed as appropriate & no additional complaints except as documented Physical Exam General General appearance: alert and in distress Head Head exam: atraumatic and normocephalic Eye Eye exam: Present normal appearance and EOMI ENT ENT exam: Present normal exam (CPAP in place on arrival) Neck Neck exam: Present normal inspection and full ROM Chest Chest inspection: Present normal inspection and symmetric chest wall rise; Absent tenderness Respiratory Respiratory exam: Present normal lung sounds bilaterally and respiratory distress; Absent wheezes or accessory muscle use Cardiovascular Cardiovascular exam: Present regular rate, normal rhythm and normal heart sounds Abdominal Exam Abdominal exam: Present soft and normal bowel sounds; Absent distention or tenderness Extremities Exam Extremities exam: Present normal inspection, full ROM and normal capillary refill; Absent tenderness Back Exam Back exam: Present normal inspection Neurological Exam Neurological exam: Present alert and oriented X3 Psychiatric Psychiatric exam: Present normal affect and normal mood Skin Skin exam: Present warm, dry, intact and normal color; Absent rash HEART Score HEART Score HEART Score assessment performed?: Yes History (anamnesis): Slightly suspicious ECG: Normal Age: >65 years Risk factors: 1-2 risk factors Troponin: </= normal limit HEART Score: 3 Critical Care Critical Care Time Critical Care Time: Yes Attestation: On 03/23/24, the high probability of a clinically significant, sudden or life threatening deterioration of the following system(s) required my full and direct attention, intervention and personal management. The time I documented below is in addition to time spent performing reported procedures but includes the following listed in this critical care notation. Total Time Total Critical Care Time: 35 Medical Decision Making Medical Records Medical records reviewed: Yes I reviewed the patient's medical records. Vasquez Inquiry Pt receiving controlled substance: No Vital Signs Vital Signs: 03/23/24 17:39 03/23/24 18:00 03/23/24 18:10 Temperature 97.9 F Temperature Source Tympanic Pulse Rate 89 97 H Pulse Rate [Left Radial] 103 H Respiratory Rate 20 19 Blood Pressure 147/89 H Blood Pressure [Right Arm] 182/116 H Blood Pressure Mean [Right Arm] 138 02 Sat by Pulse Oximetry 100 100 Oxygen Delivery Method CPAP Oxygen Flow Rate (LPM) 03/23/24 18:30 03/23/24 20:00 03/23/24 20:34 Temperature 98.9 F Temperature Source Axillary Pulse Rate 78 75 Pulse Rate [Left Radial] 70 Respiratory Rate 19 23 16 Blood Pressure 145/77 H 129/61 Blood Pressure [Right Arm] Blood Pressure Mean [Right Arm] 02 Sat by Pulse Oximetry 100 100 Oxygen Delivery Method Nasal Cannula BiPAP Oxygen Flow Rate (LPM) 3 Lab Data Labs: Lab Results 03/23/24 17:40: WBC 12.8 H, RBC 4.35, Hgb 11.4 L, Hct 38.2, MCV 87.9, MCH 26.2 L , MCHC 29.8 L, RDW 19.9 H, Plt Count 409, MPV 6.9 L, Neut % (Auto) 44.8, Lymph % (Auto) 45.6, [place] % (Auto) 6.4, Eos % (Auto) 2.9, Baso % (Auto) 0.3, Neut # (Auto) 5.8, Lymph # (Auto) 5.9 H, [place] # (Auto) 0.8, Eos # (Auto) 0.4, Baso # (Auto) 0.0, Sodium 141, Potassium 5.2 H, Chloride 108 H, Carbon Dioxide 29, Anion Gap 9.2, BUN 24 H, Creatinine 0.80, Estimated Creat Clear 30, Estimated GFR 70, Est GFR ( Amer) 85, Glucose 105 H, Calcium 8.6, Total Bilirubin 0.4, AST 55 H, ALT 41, Alkaline Phosphatase 149 H, Troponin I < 0.01, NT-Pro-B Natriuret Pep 144 H, Total Protein 7.3, Albumin 4.3, Globulin 3.0, Albumin/Globulin Ratio 1.4 03/23/24 17:47: VBG pH 7.26 L, VBG pCO2 52.1 H, VBG pO2 73.8 H, VBG HCO3 22.8 L, VBG Total CO2 24.4, VBG O2 Saturation 93.1 H, VBG Base Excess -4.3 L, VBG Lactic Acid 1.8 03/23/24 19:09: VBG pH 7.30 L, VBG pCO2 59.5 H, VBG pO2 46.6 H, VBG HCO3 28.4, V BG Total CO2 30.2 H, VBG O2 Saturation 78.2 H, VBG Base Excess 2.0, VBG Lactic Acid 0.8 03/23/24 17:40 03/23/24 17:40 Response Orders (Tests/Meds): ED MEDICATIONS Generic Name Dose Route Start Last Admin Trade Name Freq PRN Reason Stop Dose Admin Acetaminophen 650 mg 03/23/24 19:39 Acetaminophen 325mg Tab PO 04/22/24 19:38 Q4HP PRN Fever or Mild Pain (1-3) Hydrocodone Bitart/Acetaminophen 1 tab 03/23/24 22:29 03/23/24 22:35 Apap/Hydrocodone 325mg/7.5mg Tab PO 04/22/24 22:28 1 tab TID PRN Administration Moderate Pain (Scale Score 5-6) Albuterol/Ipratropium 3 ml 03/23/24 21:14 Ipratropium/Albuterol 3 Ml Neb IH 04/22/24 21:13 Q6HP PRN Shortness Of Breath Atorvastatin Calcium 40 mg 03/23/24 22:30 08/17/24 22:35 Atorvastatin 40mg Tablet PO 04/22/24 22:29 40 mg HS GRACIE Administration Bupropion HCl 150 mg 03/24/24 09:00 Bupropion Hcl Sr 150mg Tab PO 04/23/24 08:59 BID GRACIE Carvedilol 6.25 mg 03/24/24 09:00 Carvedilol 6.25mg Tablet PO 04/23/24 08:59 DAILY GRACIE Clopidogrel Bisulfate 75 mg 03/24/24 09:00 Clopidogrel 75mg Tab PO 04/23/24 08:59 DAILY GRACIE Ergocalciferol unit 03/23/24 22:30 Ergocalciferol 50,000 Units (1.25mg) Capsule PO 04/22/24 22:29 WEEKLY GRACIE Folic Acid 1 mg 03/24/24 09:00 Folic Acid 1mg Tablet PO 04/23/24 08:59 DAILY GRACIE Sodium Chloride 1,000 mls @ 50 mls/hr 03/23/24 19:45 03/23/24 21:34 Sod Chlor 0.9% 1000ml Bag IV 04/22/24 19:44 50 mls/hr .Q20H GRACIE Administration Levofloxacin/Dextrose 750 mg in 150 mls @ 100 mls/hr 03/23/24 21:15 03/23/24 21:34 Levofloxacin 750mg/150ml Premix IV 04/02/24 21:14 100 mls/hr Q24H GRACIE Administration Isosorbide Mononitrate 30 mg 03/24/24 09:00 Isosorbide [place] 30mg Tab.Er.24h PO 04/23/24 08:59 DAILY GRACIE Montelukast Sodium 10 mg 03/24/24 09:00 Montelukast Sodium 10mg Tab PO 04/23/24 08:59 DAILY GRACIE Morphine Sulfate 2 mg 03/23/24 19:39 Morphine 2mg/Ml Syringe IV 04/22/24 19:38 Q2HP PRN Severe Pain (7-10) Nicotine 21 mg 03/23/24 19:39 Nicotine 21mg/24hr Patch TD 04/22/24 19:38 DAILYP PRN Nicotine Cravings Non-Formulary Medication 15 mg 03/24/24 09:00 Meloxicam PO 04/23/24 08:59 DAILY GRACIE Ondansetron HCl 4 mg 03/23/24 19:39 Ondansetron 4mg/2ml Vial IV 04/22/24 19:38 Q8HP PRN Nausea Pantoprazole Sodium 40 mg 03/24/24 09:00 Pantoprazole 40mg Tablet PO 04/23/24 08:59 DAILY GRACIE Sertraline HCl 200 mg 03/24/24 09:00 Sertraline 100mg Tablet PO 04/23/24 08:59 BID GRACIE Discontinued Medications Generic Name Dose Route Start Last Admin Trade Name Quan PRN Reason Stop Dose Admin Albuterol/Ipratropium 3 ml 03/23/24 17:40 03/23/24 18:25 Ipratropium/Albuterol 3 Ml Neb IH 03/23/24 17:41 3 ml ONCE ONE Administration Ceftriaxone Sodium 2 gm/ 100 mls @ 200 mls/hr 03/23/24 17:43 03/23/24 18:07 Sodium Chloride IV 03/23/24 18:12 200 mls/hr ONCE ONE Administration Methylprednisolone Sodium Succinate 125 mg 03/23/24 17:40 03/23/24 18:07 Methylprednisolone Sod Succ 125mg Vial IV 03/23/24 17:41 125 mg ONCE ONE Administration ORDERS Category Date Time Status Pulmonology Consult [Consult to Pulmonology] [CONS] Cons 03/23/24 19:39 Active Routine CXR --portable [XR chest portable] Stat Exams 03/23/24 17:40 Completed BNP [NT Pro Brain Natriuretic Pep.] Stat Lab 03/23/24 17:40 Completed CBC w/Auto Diff [Complete Blood Count Auto Diff] Stat Lab 03/23/24 17:40 Completed CMP [Comprehensive Metabolic Panel] Stat Lab 03/23/24 17:40 Completed Complete Blood Count Auto Diff AMLAB Lab 03/24/24 06:00 Ordered Comprehensive Metabolic Panel AMLAB Lab 03/24/24 06:00 Ordered Magnesium AMLAB Lab 03/24/24 06:00 Ordered Trop T [Troponin I] Stat Lab 03/23/24 17:40 Completed VBG [Venous Blood Gas] Stat RT 03/23/24 17:47 Completed VBG [Venous Blood Gas] Stat RT 03/23/24 19:09 Completed ECG Request Stat Y 03/23/24 17:40 Ordered ECG Data Tracing #1: Attestation: I reviewed this ECG and interpreted as documented below: ECG Narrative: Normal sinus rhythm, normal axis, normal intervals, no noted ST elevation MDM Narrative Medical Decision Narrative: patient with history and exam per above presenting for evaluation of shortness of breath Diagnoses considered include COPD exacerbation, CHF exacerbation, ACS, pneumonia ED workup and treatment included: As above Labs were independently interpreted by me, significant for Mild leukocytosis, chronic anemia respiratory acidosis, mild hyperkalemia negative troponin. Imaging was independently visualized and interpreted by me, significant for hyperinflation of lungs bilaterally consistent with COPD, no noted consolidation Please refer to radiology report for full details. My clinical impression at this time is most consistent with COPD exacerbation. Patient as above was placed on BiPAP, initial VBG was respiratory acidosis, repeat VBG with continued respiratory acidosis, respiratory rate was adjusted appropriately. On reassessment patient states she is feeling somewhat better after BiPAP and medications. Consulted hospitalist on-call who after evaluation admitted patient to their service with hemodynamically stable vitals. I discussed my clinical impression with patient and answered all questions. At this time, the evidence for any other entities in the differential is insufficient to warrant any further testing or ED observation. This was explained to the patient. The patient was advised that persistent or worsening symptoms require further evaluation.
--- NOTE | 2024-03-23 19:40 | P.HP_ITS ---
History of Present Illness *Admission Date: 03/23/24 *Reason for visit:: SOB *History of present illness: This is a 73-year-old female with PMHx ongoing tobacco dependence, stated stopped 3 years ago COPD, CHF, CAD, chronic anemia and cachexia presented to ED with concerns of shortness of air over several days not improving with home oxygen requirement. patient home baseline is 3 L via nasal cannula. Patient has had COPD exacerbation in past, reports this is similar to a previous episode. Patient was placed on CPAP by EMS with improvement in symptoms. She denies any recent illness, fever, runny nose, cough, or chest pain. Admitted for further treatment. [facility] Disclaimer: The information contained in this section may have been updated after the patient was seen, as this information can be updated by other users. Medical History (Updated 03/23/24 @ 22:56 by Matt Heath APRN) BMI less than 19,adult (HFpEF) heart failure with preserved ejection fraction Tobacco dependence Dependence on supplemental oxygen Coronary artery disease Iron deficiency anemia COPD (chronic obstructive pulmonary disease) Surgical History (Updated 12/31/23 @ 23:45 by Percy Zuniga MD) Hx of esophagogastroduodenoscopy History of colonoscopy History of hysterectomy History of heart artery stent S/P cardiac catheterization Family History (Updated 12/31/23 @ 23:46 by Percy Zuniga MD) Father Alzheimer disease Mother Stroke Social History (Updated 12/31/23 @ 21:27 by Bethany Sinclair RN) Smoking Status: Former smoker tobacco type: cigarettes packs per day: 1 years smoked: 60 smoking status stop date: 3 years ago alcohol intake: former current occupational status: other Travel in the last 8 weeks: None Review of Systems Review of Systems Review of systems:: pertinent systems reviewed and negative unless documented below Meds Home Medications and Allergies Home Medications ?Medication ?Instructions ?Recorded ?Confirmed ?Type atorvastatin 40 mg tablet 40 mg PO HS 12/31/23 03/23/24 History bupropion HCl 150 mg tablet,12 hr 150 mg PO BID 12/31/23 03/23/24 History sustained-release carvedilol 6.25 mg tablet 6.25 mg PO DAILY 12/31/23 03/23/24 History clopidogrel 75 mg tablet 75 mg PO DAILY 12/31/23 03/23/24 History hydrocodone 7.5 mg-acetaminophen 1 tab PO Q8HP PRN Moderate Pain 12/31/23 03/24/24 History 325 mg tablet (Scale Score 5-6) sertraline 100 mg tablet 200 mg PO DAILY 12/31/23 03/24/24 History ergocalciferol (vitamin D2) 1,250 1,250 mcg PO WEEKLY 01/01/24 03/23/24 History mcg (50,000 unit) capsule (Vitamin D2) folic acid 1 mg tablet 1 mg PO DAILY 01/01/24 03/23/24 History rivastigmine 4.6 mg/24 hour 4.6 mg transdermal DAILY 03/24/24 03/24/24 History transdermal patch New Prescriptions to Start Prescriptions: Allergies Allergy/AdvReac Type Severity Reaction Status Date / Time No Known Allergies Allergy Verified 12/31/23 17:47 Exam Data for Last 24 hours Vital signs and Labs for Last 24 Hours: Temp Pulse Resp BP Pulse Ox O2 Del Method 97.9 F 78 19 145/77 H 100 CPAP 03/23/24 17:39 03/23/24 18:30 03/23/24 18:30 03/23/24 18:30 03/23/24 18:30 03/23/24 17:39 Laboratory Results - last 24 hr 03/23/24 17:40: WBC 12.8 H, RBC 4.35, Hgb 11.4 L, Hct 38.2, MCV 87.9, MCH 26.2 L , MCHC 29.8 L, RDW 19.9 H, Plt Count 409, MPV 6.9 L, Neut % (Auto) 44.8, Lymph % (Auto) 45.6, [place] % (Auto) 6.4, Eos % (Auto) 2.9, Baso % (Auto) 0.3, Neut # (Aut o) 5.8, Lymph # (Auto) 5.9 H, [place] # (Auto) 0.8, Eos # (Auto) 0.4, Baso # (Auto) 0.0, Sodium 141, Potassium 5.2 H, Chloride 108 H, Carbon Dioxide 29, Anion Gap 9.2, BUN 24 H, Creatinine 0.80, Estimated Creat Clear 30, Estimated GFR 70, Est GFR ( Amer) 85, Glucose 105 H, Calcium 8.6, Total Bilirubin 0.4, AST 55 H , ALT 41, Alkaline Phosphatase 149 H, Troponin I < 0.01, NT-Pro-B Natriuret Pep 144 H, Total Protein 7.3, Albumin 4.3, Globulin 3.0, Albumin/Globulin Ratio 1.4 03/23/24 17:47: VBG pH 7.26 L, VBG pCO2 52.1 H, VBG pO2 73.8 H, VBG HCO3 22.8 L, VBG Total CO2 24.4, VBG O2 Saturation 93.1 H, VBG Base Excess -4.3 L, VBG Lactic Acid 1.8 I & O for Last 24 hours: Intake & Output 03/20/24 03/21/24 03/22/24 03/23/24 23:59 23:59 23:59 23:59 Weight 38.555 kg Constitutional Constitutional: no acute distress, thin, chronically ill appearing, disheveled and cooperative *Routine HEENT Exam Head: Present normocephalic and atraumatic Eye: Present EOMI and PERRL ENT: Present mucous membranes dry *Routine Neck Exam Neck: Present supple; Absent JVD or lymphadenopathy *Routine Respiratory Exam Respiratory: Present accessory muscle use, rhonchi, wheezes and diminished air movement *Routine Cardiovascular Exam Cardiovascular: Present RRR and murmur; Absent JVD *Routine Abdominal Exam Abdominal: Present soft and normoactive bowel sounds; Absent tenderness *Routine Rectal Exam Rectal:: deferred *Routine Genitalia Exam Genitalia:: deferred *Routine Extremities Exam Extremities: Present full ROM, pulses intact and extremity cold to touch *Routine Skin Exam Skin: Present intact and pallor; Absent rash *Routine Neurological Exam Neurological: Present alert, oriented X3, moving all extremities, vision grossly intact and hearing grossly intact; Absent sensory deficit or motor deficit Routine Psychiatric Exam Psychiatric: Present normal affect, normal thought process, cooperative, good insight and good judgment H&P: Result Imaging and Cardiology EKG: Status: image reviewed by me, Preliminary report and final report Chest x-ray: Status: image reviewed by me, Preliminary report and final report Assessment and Plan *Assessment and plan (1) Acute and chronic respiratory failure with hypercapnia: Status: Acute Category: Medical Code(s): J96.22 - Acute and chronic respiratory failure with hypercapnia (2) Acute exacerbation of chronic obstructive airways disease: Status: Acute Category: Medical Code(s): J44.1 - Chronic obstructive pulmonary disease with (acute) exacerbation (3) (HFpEF) heart failure with preserved ejection fraction: Status: Acute Qualifiers: Heart failure chronicity: chronic Qualified Code(s): I50.32 - Chronic diastolic (congestive) heart failure Category: Medical Code(s): I50.30 - Unspecified diastolic (congestive) heart failure (4) Iron deficiency anemia: Status: Acute Qualifiers: Iron deficiency anemia type: unspecified iron deficiency Qualified Code(s): D50.9 - Iron deficiency anemia, unspecified Category: Medical Code(s): D50.9 - Iron deficiency anemia, unspecified (5) Pulmonary cachexia due to chronic obstructive pulmonary disease: Status: Acute Category: Medical Code(s): R64 - Cachexia; J44.9 - Chronic obstructive pulmonary disease, unspecified (6) Ex-smoker: Status: Acute Category: Social Hx Code(s): Z87.891 - Personal history of nicotine dependence Plan 73-year-old female with PMHx ongoing tobacco dependence, stated stopped 3 years ago COPD, CHF, CAD, chronic anemia and cachexia presented to ED with concerns of shortness of air over several days not improving with home oxygen requireme. Here initial work up showed mild leukocytosis, chronic anemia respiratory acidosis, mild hyperkalemia negative troponin. patient continue on BIPAP continuos. CXR concern for emphysema changes, no focal consolidation. ED requested admission for inpatient management. Agreed for it after discussion about findings. Plan as follow; -Acute on chronic hypercapnic respiratory failure: Acute exacerbation of COPD: Patient for inpatient management dispo stepdown On continuous BiPAP therapy. Respiratory therapist to assist with care Pulmonology consult Repeat ABG at 6 AM DuoNeb every 6 as needed Patient was given Solu-Medrol in the ED. will defer further steroid based on clinical improvement Ceftriaxone 2 g given at the ER. Will continue with Levaquin 750 mg IV for COPD exacerbation Monitor for O2 saturation, vital signs per unit protocol Repeat and monitor electrolytes Daily CBC CMP -Heart failure with preserved ejection fraction: Does not seem to be on exacerbation Slightly elevated BNP Caution with IV hydration. 1 L of normal saline for maintenance History iron deficiency anemia: Hemoglobin stable. Monitor daily CBC Pulmonary cachexia. BMI of 16. Nursing to encourage increased p.o. intake Ex-smoker Patient on Plavix. Low concern for DVT. Protonix for GERD Full code Cardiac diet Rounded on patient after nurse practitioner. Personally examined and interviewed patient. Agree with exam findings and care plan as documented.
--- NOTE | 2024-03-23 19:50 | PC.NURSE ---
room is being clean, will transfer to floor once cleaned
[2024-03-23 20:15] LABS: Lactate Venous 0.8 mmol/L (0.4-2.0); VBG HCO3 28.4 mmol/L (23-30); VBG Oxygen Saturation 78.2 % (50-70); VBG PO2 46.6 mmol/L (28-40); VBG Total CO2 30.2 mmol/L (23-27)
--- NOTE | 2024-03-23 20:15 | PC.NURSE ---
Report called to LOKESH Palomino
[2024-03-23 20:17] LABS: VBG PCO2 59.5 mmol/L (35-51)
--- NOTE | 2024-03-23 20:46 | PC.NURSE ---
patient arrived to floor via stretcher @20:45
[2024-03-23] MEDS: 0.9 % SODIUM CHLORIDE 1000ML 1,000 ML 50 ML IV (21:34)
[2024-03-23] MEDS: LEVOFLOXACIN/D5W 750 MG/150 ML 750 MG/150 ML PIGGYBACK 100 MG IV (21:34)
[2024-03-23] MEDS: APAP/HYDROCODONE 325MG/7.5MG TAB 1 TAB PO (22:35)
[2024-03-23] MEDS: ATORVASTATIN 40MG TABLET 40 MG PO (22:35)
[2024-03-24] VITALS (14 sets, daily range): BP systolic 99–139; BP diastolic 55–74; PULSE 70–91; RESP 16–22; TEMP 36.4–36.8; O2SAT 96–100; BMI 16.0
--- NOTE | 2024-03-24 05:09 | PC.NURSE ---
Ms Santiago was [facility] last night at around 20:45 for shortness of breath, dyspnea, and hypercapnia with acute/chronic respiratory failure. Ms Santiago arrived to the floor with 3L of oxygen on nasal cannula and tolerated it well. Audible wheezing was noted and the patient voiced having trouble with catching her breath. She stated that her shortness of breath has been worsening over a long time. Patient was switched to BIPAP after eating some applesauce. She was weaned down to 28% later on into the shift. Patient has been tolerating BIPAP very well, maintaining an O2 sat of 100%. Patient has diminished lung sounds and active bowel sounds. She is alert and oriented x4. The patient has gotten up to the bedside commode with standby assistance a couple times during the shift. She complained of pain, rated as a level 8, in her lower back and down her legs; she was treated with [place] 7.5mg per MAR. Patient also received atorvastatin and levofloxacin this shift. She has not had any further complaints of pain thus far. Scarring was noted on her left arm and elbow; she stated that it was from falls at home. Normal saline is currently infusing at 50mL/hr. She does not have any further complaints at this time. No acute changes were noticed between biophysicals this shift. ABGs are to be drawn again this morning. Bed alarm is on. Call light within reach.
[2024-03-24] MEDS: IPRATROPIUM/ALBUTEROL 3 ML NEB IH ×5 (06:20→23:12)
[2024-03-24 06:27] LABS: ABG HCO3 27.7 mmhg (22.0-26.0); ABG Oxygen Saturation 97 % (90-100); ABG PCO2 45.7 mmhg (35.0-45.0); ABG PO2 90.5 mmhg (80-100); ABG TCO2 29.1 mmhg (23-27)
[2024-03-24 06:30] LABS: Oxygen 28% Bipap 14/7 %; Vent Rate 21
[2024-03-24 06:31] LABS: Allen's Test Acceptable; Source Left Radial
--- NOTE | 2024-03-24 06:36 | PC.NURSE ---
Entered patient's room at around 06:20. The patient appeared to be very distressed and was motioning for BIPAP to be taken off. Her oxygen saturations dropped quickly into the 70s and 80s, respirations increased to the 30s and 40s, and her heart rate increased into the upper 90s. BIPAP was removed and nasal cannula with 3L of oxygen was placed. Patient was having constant, audible wheezing and severe difficulty speaking related to her shortness of air. The patient stated that the BIPAP was smothering her to . She appeared very diaphoretic and tearful. Patient was comforted and encouraged to slow down breathing. Oscillating fan at bedside to cool off patient. Patient's respirations started to decrease into the 20s and her O2 sat increased to 100 after calming down. Respiratory therapist is in her room at this time; RT voiced that she spoke with Dr Vega about patient's status. RT turned down patient's oxygen flow to 2L. ABGs are still pending.
[2024-03-24 07:45] LABS: Basophils % 0.5 % (0.1-2.0); Eosinophils % 0.3 % (0.1-12.0); Hematocrit 36.1 % (37.0-47.0); Hemoglobin 11.5 g/dL (12.2-16.2); Lymphocytes # 1.4 K/mm3 (0.7-4.5); Lymphocytes % 17.4 % (10-50); Mean Corpuscular HGB Conc 31.7 g/dL (31.8-35.4); Mean Corpuscular Hemoglobin 27.8 pg (27.0-31.2); Mean Corpuscular Volume 87.6 fl (81-99); Mean Platelet Volume 8.8 fl (7.4-10.4); Monocytes # 0.5 K/mm3 (0.1-1.0); Monocytes % 6.5 % (1.7-9.3); Neutrophils # 5.9 K/mm3 (1.8-7.8); Neutrophils % 75.3 % (37.0-80.0); Platelet Count 249 K/mm3 (142-424); Red Blood Count 4.12 M/mm3 (4.20-5.40); Red Cell Distribution Width 20.3 % (11.5-17.5); White Blood Count 7.9 K/mm3 (4.8-10.8)
[2024-03-24] MEDS: CLOPIDOGREL 75MG TAB 75 MG PO (08:52)
[2024-03-24] MEDS: ISOSORBIDE MONO 30MG TAB.ER.24H 30 MG PO (08:52)
[2024-03-24] MEDS: buPROPion HCl SR 150MG TAB 150 MG PO ×2 (08:52→20:17)
[2024-03-24] MEDS: BUDESONIDE 0.5MG/2ML NEB 0.5 MG IH ×2 (08:53→18:26)
[2024-03-24] MEDS: PANTOPRAZOLE 40MG TABLET 40 MG PO (08:53)
[2024-03-24] MEDS: FOLIC ACID 1MG TABLET 1 MG PO (08:53)
[2024-03-24] MEDS: CARVEDILOL 6.25MG TABLET 6.25 MG PO (09:09)
[2024-03-24] MEDS: SERTRALINE 100MG TABLET 200 MG PO (09:09)
[2024-03-24 09:14] LABS: Albumin Level 3.7 g/dl (3.5-5.0); Chloride 106 mmol/L (98-107); Potassium 4.2 mmoL/L (3.5-5.1); Sodium 137 mmol/L (136-145)
[2024-03-24 09:16] LABS: Alanine Aminotransferase 40 U/L (12-78); Aspartate Amino Transferase 44 U/L (14-36); Blood Urea Nitrogen 22 mg/dl (7-17); Creatinine Clearance Estimated 32 mL/min (50-200); Estimated Glomerular Filt Rate 70 ml/min (>60); GFR (African American) 85 ML/MIN (>60)
[2024-03-24 09:17] LABS: Albumin/Globulin Ratio 1.5 (1.1-1.8); Alkaline Phosphatase 86 U/L (38-126); Anion Gap 8.2 mEq/L (5-15); Bilirubin,Total 0.3 mg/dl (0.2-1.3); Calcium 8.3 mg/dl (8.4-10.2); Carbon Dioxide 27 mmol/L (22.0-30.0); Globulin 2.5 g/dL (1.3-3.2); Glucose 123 mg/dl (74-100); Magnesium 1.5 mg/dl (1.6-2.3); Total Protein,Serum 6.2 g/dl (6.3-8.2)
--- NOTE | 2024-03-24 09:29 | HMH.PHAINT1 ---
Pharmacy Intervention Comments: MEDICATION RECONCILIATION COMPLETED ON PATIENT USING EXTERNAL FILL HISTORY FROM PHARMACY. CLARIFIED CARVEDILOL DOSE WITH PATIENT. PATIENT STATES THAT SHE TAKES CARVEDILOL ONLY ONCE A DAY IN THE MORNING. -VERONICA BURCIAGAD
--- NOTE | 2024-03-24 09:49 | EXP.ACUTE.PN ---
Subjective *Date: 03/24/24 *Time: 09:53 Interval history: Patient transitioned to nasal cannula this morning off BiPAP after blood gas shows improvement in her hypercarbia. Tolerating p.o. intake. Alert and oriented x 3. Appears in mild respiratory distress, still using accessory muscles. Desats during conversation, responds with improvement at rest. Medical Exam Vital signs and Labs for Last 24 Hours: Vital Signs Temp Pulse Pulse Resp BP BP Pulse Ox 03/24/24 08:08 03/24/24 08:00 90 03/24/24 08:00 97.8 F 03/24/24 08:00 89 20 99/55 L 100 03/24/24 08:00 03/24/24 06:50 03/24/24 06:46 90 03/24/24 06:46 91 H 03/24/24 06:46 100 03/24/24 06:00 72 22 139/57 L 100 03/24/24 05:00 03/24/24 04:00 73 03/24/24 04:00 98.2 F 84 18 129/70 99 03/24/24 04:00 83 18 100 03/24/24 03:00 03/24/24 02:00 75 16 138/74 100 03/24/24 01:00 03/24/24 00:00 70 03/24/24 00:00 97.7 F 71 19 122/66 99 03/23/24 23:19 03/23/24 23:00 03/23/24 22:00 74 21 126/49 L 100 03/23/24 21:10 98.5 F 84 24 154/84 H 98 03/23/24 21:00 03/23/24 20:34 98.9 F 75 16 129/61 03/23/24 20:00 70 23 100 03/23/24 18:30 78 19 145/77 H 100 03/23/24 18:18 03/23/24 18:10 97 H 03/23/24 18:00 89 19 147/89 H 100 03/23/24 17:39 97.9 F 103 H 20 182/116 H 100 O2 Del Method O2 Flow Rate FiO2 03/24/24 08:08 Nasal Cannula 2 03/24/24 08:00 03/24/24 08:00 03/24/24 08:00 Nasal Cannula 2 03/24/24 08:00 Nasal Cannula 2 03/24/24 06:50 Nasal Cannula 2 03/24/24 06:46 03/24/24 06:46 03/24/24 06:46 Nasal Cannula 3 03/24/24 06:00 BiPAP 28 03/24/24 05:00 Nasal Cannula 3 03/24/24 04:00 03/24/24 04:00 Nasal Cannula 3 03/24/24 04:00 Nasal Cannula 3 03/24/24 03:00 BiPAP 03/24/24 02:00 BiPAP 30 03/24/24 01:00 BiPAP 03/24/24 00:00 03/24/24 00:00 BiPAP 03/23/24 23:19 30 03/23/24 23:00 BiPAP 30 03/23/24 22:00 BiPAP 03/23/24 21:10 03/23/24 21:00 BiPAP 03/23/24 20:34 BiPAP 03/23/24 20:00 Nasal Cannula 3 03/23/24 18:30 03/23/24 18:18 50 03/23/24 18:10 03/23/24 18:00 03/23/24 17:39 CPAP Intake and Output 03/23/24 03/24/24 03/24/24 23:59 07:59 15:59 Intake Total 428 / 668 240 / 668 Output Total 0 / 0 300 / 450 150 / 450 Balance 0 / 428 128 / 218 90 / 218 Intake: Intake, Oral Amount 240 / 480 240 / 480 Intake, Total IV Amount 188 / 188 0.9 % Sodium Chloride 1000ML 1, 38 / 38 000 ml @ 50 mls/hr IV .Q20H GRACIE Rx#:[id number] Levofloxacin/D5w 750 mg/150 ml 150 / 150 750 mg In 150 ml @ 100 mls/hr IV Q24H GRACIE Rx#:[id number] Output: Output, Urine Amount 0 / 0 300 / 450 150 / 450 Other: Number of Voids 1 Number of Unmeasured Voids 1 1 Weight 41.186 kg 41.186 kg Patient Weight 03/24/24 23:59 Weight 41.186 kg Laboratory Results - last 24 hr 03/23/24 17:40: WBC 12.8 H, RBC 4.35, Hgb 11.4 L, Hct 38.2, MCV 87.9, MCH 26.2 L, MCHC 29.8 L, RDW 19.9 H, Plt Count 409, MPV 6.9 L, Neut % (Auto) 44.8, Lymph % (Auto) 45.6, [place] % (Auto) 6.4, Eos % (Auto) 2.9, Baso % (Auto) 0.3, Neut # (Auto) 5.8, Lymph # (Auto) 5.9 H, [place] # (Auto) 0.8, Eos # (Auto) 0.4, Baso # (Auto) 0.0, Sodium 141, Potassium 5.2 H, Chloride 108 H, Carbon Dioxide 29, Anion Gap 9.2, BUN 24 H, Creatinine 0.80, Estimated Creat Clear 30, Estimated GFR 70, Est GFR ( Amer) 85, Glucose 105 H, Calcium 8.6, Total Bilirubin 0.4, AST 55 H, ALT 41, Alkaline Phosphatase 149 H, Troponin I < 0.01, NT-Pro-B Natriuret Pep 144 H, Total Protein 7.3, Albumin 4.3, Globulin 3.0, Albumin/Globulin Ratio 1.4 03/23/24 17:47: VBG pH 7.26 L, VBG pCO2 52.1 H, VBG pO2 73.8 H, VBG HCO3 22.8 L, VBG Total CO2 24.4, VBG O2 Saturation 93.1 H, VBG Base Excess -4.3 L, VBG Lactic Acid 1.8 03/23/24 19:09: VBG pH 7.30 L, VBG pCO2 59.5 H, VBG pO2 46.6 H, VBG HCO3 28.4, VBG Total CO2 30.2 H, VBG O2 Saturation 78.2 H, VBG Base Excess 2.0, VBG Lactic Acid 0.8 03/24/24 06:00: Specimen Source Left radial, O2 % 28% bipap 14/, Arturo Test Acceptable, Vent Rate 21 03/24/24 06:50: WBC 7.9 D, RBC 4.12 L, Hgb 11.5 L, Hct 36.1 L, MCV 87.6, MCH 27.8, MCHC 31.7 L, RDW 20.3 H, Plt Count 249 D, MPV 8.8, Neut % (Auto) 75.3, Lymph % (Auto) 17.4, [place] % (Auto) 6.5, Eos % (Auto) 0.3, Baso % (Auto) 0.5, Neut # (Auto) 5.9, Lymph # (Auto) 1.4, [place] # (Auto) 0.5, Eos # (Auto) 0.0, Baso # (Auto) 0.0 03/24/24 08:55: Sodium 137, Potassium 4.2, Chloride 106, Carbon Dioxide 27, Anion Gap 8.2, BUN 22 H, Creatinine 0.80, Estimated Creat Clear 32, Estimated GFR 70, Est GFR ( Amer) 85, Glucose 123 H, Calcium 8.3 L, Magnesium 1.5 L, Total Bilirubin 0.3, AST 44 H, ALT 40, Alkaline Phosphatase 86, Total Protein 6.2 L, Albumin 3.7 D, Globulin 2.5, Albumin/Globulin Ratio 1.5 I & O for Labs for Last 24 Hours: Intake & Output 03/21/24 03/22/24 03/23/24 03/24/24 23:59 23:59 23:59 23:59 Intake Total 668 / 668 Output Total 0 / 0 450 / 450 Balance 0 / 428 218 / 218 Weight 41.186 kg 41.186 kg Constitutional: Present mild distress, cachectic, chronically ill appearing and cooperative Head: Present atraumatic and normocephalic ENT: Present normal exam Respiratory: Present accessory muscle use, prolonged expiratory phase and diminished air movement; Absent respiratory distress, wheezes or crackles Cardiac: Present Reg Rate and Rhythm GI: Present soft and normal bowel sounds; Absent distention or tenderness Extremities: Present normal inspection and full ROM Comment:: Sarcopenia Skin: Present intact; Absent erythema Neuro: Present Grossly Intact, alert, awake, oriented x 3 and moves all extremities Assessment and Plan *Assessment and plan (1) Acute and chronic respiratory failure with hypercapnia: Status: Acute Category: Medical Code(s): J96.22 - Acute and chronic respiratory failure with hypercapnia (2) Acute exacerbation of chronic obstructive airways disease: Status: Acute Category: Medical Code(s): J44.1 - Chronic obstructive pulmonary disease with (acute) exacerbation (3) (HFpEF) heart failure with preserved ejection fraction: Status: Acute Qualifiers: Heart failure chronicity: chronic Qualified Code(s): I50.32 - Chronic diastolic (congestive) heart failure Category: Medical Code(s): I50.30 - Unspecified diastolic (congestive) heart failure (4) Iron deficiency anemia: Status: Acute Qualifiers: Iron deficiency anemia type: unspecified iron deficiency Qualified Code(s): D50.9 - Iron deficiency anemia, unspecified Category: Medical Code(s): D50.9 - Iron deficiency anemia, unspecified (5) Pulmonary cachexia due to chronic obstructive pulmonary disease: Status: Acute Category: Medical Code(s): R64 - Cachexia; J44.9 - Chronic obstructive pulmonary disease, unspecified (6) Ex-smoker: Status: Acute Category: Social Hx Code(s): Z87.891 - Personal history of nicotine dependence Plan 73-year-old female with PMHx ongoing tobacco dependence, stated stopped 3 years ago COPD, CHF, CAD, chronic anemia and cachexia presented to ED with concerns of shortness of air over several days not improving with home oxygen requireme. Here initial work up showed mild leukocytosis, chronic anemia respiratory acidosis, mild hyperkalemia negative troponin. patient continue on BIPAP continuos. CXR concern for emphysema changes, no focal consolidation. ED requested admission for inpatient management. Agreed for it after discussion about findings. Patient showing some improvement but still in respiratory distress. Continues to require inpatient management. Problems addressed as follows: -Acute on chronic hypercapnic respiratory failure: Severe exacerbation of chronic problem Acute exacerbation of COPD: To read BiPAP over night. Weaned to nasal cannula this morning. Blood gas showing improvement with pH 7.4, pCO2 45, PaO2 of 90. White count normal at 7.9. -Supplemental oxygen with goal sats greater 90%. Currently on 3 L. -Pulmonology consulted and assisting with care. Per discussion, recommend holding on BiPAP today. Anticipate will repeat ABG in the morning with patient off BiPAP tonight - DuoNeb every 6 hours scheduled. Pulmicort twice daily. -Prednisone 40 mg daily -Ceftriaxone 2 g x 1 in the ER. Continue Levaquin 750 mg IV daily. Continue for 5 days total. -Repeat CBC, CMP, magnesium ordered for the morning -Per my review of chest x-ray on admission, patient has significant hyperinflation, flattening of diaphragm, all 12 ribs and lung field no focal consolidation., Heart failure with preserved ejection fraction: CAD: - BNP relatively normal, less than 200. Does not appear volume overloaded. No indication for diuresis; Discontinue IV fluids as she is tolerating p.o. intake. -Continue care along 6.25mg twice daily, Plavix 75 mg, Lipitor 40 mg nightly Hypomagnesemia, magnesium 1.5 this morning, will replace with 2 g IV x 1. Mood disorder: Continue Wellbutrin 150 mg twice daily; continue Zoloft 200 mg daily Pulmonary cachexia. BMI of 16. Nursing to encourage increased p.o. intake, boost with trays. Ex-smoker Low concern for DVT. Protonix for GERD Full code Cardiac diet
[2024-03-24] MEDS: MAGNESIUM SULFATE IN WATER 2 GM/50 ML PIGGYBACK IV (10:46)
[2024-03-24] MEDS: predniSONE 20MG TAB 40 MG PO (10:46)
--- NOTE | 2024-03-24 16:05 | PC.NURSE ---
PT IS RESTING IN BED. ALERT AND ORIENTED X4. EATING AND DRINKING WELL. OOB WITH 1 ASSIST TO THE BSC. SOA WITH EXERTION. O2 SATURATION HAS MAINTAINED 92-98% ON 2 L NC. LUNG SOUNDS DIMINISHED WITH SCATTERED WHEEZES. ABDOMEN SOFT/NON TENDER WITH ACTIVE BOWEL SOUNDS. WILL CONTINUE TO MONITOR.
[2024-03-24] MEDS: APAP/HYDROCODONE 325MG/7.5MG TAB 1 TAB PO (17:23)
[2024-03-24] MEDS: ATORVASTATIN 40MG TABLET 40 MG PO (20:17)
[2024-03-25] VITALS: BP 127/59; PULSE 66; RESP 18; TEMP 37; O2SAT 97
[2024-03-25 04:00] VITALS: BP 144/69; PULSE 73; RESP 18; TEMP 36.8; O2SAT 100; BMI 16.0
--- NOTE | 2024-03-25 05:32 | PC.NURSE ---
Patient is alert and oriented x4. Patient has slept throughout most of the night. Patient has remained on 3 L of oxygen nasal cannula thus far this shift during her sleep and has tolerated it well; her O2 sats have remained in the upper 90s to 100. Upon auscultation, her lungs were clear but diminished. Her respirations and heart rate have been stable this shift. Blood pressure was hypertensive (144/69) at 04:00 compared with previous readings. Audible wheezing has improved compared to prior shift; patient was able to speak clearly without respiratory difficulty this morning. Patient has received her scheduled medications per OCT. Patient has gotten up to the bedside commode to void but she has not had a bowel movement this shift. She does not have any further complaints at this time. Patient is resting in bed and is using her personal phone at this time. Bed alarm on. Call light within reach.
[2024-03-25] MEDS: IPRATROPIUM/ALBUTEROL 3 ML NEB IH (06:13)
[2024-03-25 06:14] VITALS: PULSE 82; PULSE 86; O2SAT 99
[2024-03-25] MEDS: BUDESONIDE 0.5MG/2ML NEB 0.5 MG IH (06:14)
[2024-03-25 07:10] LABS: Basophils % 0.2 % (0.1-2.0); Mean Corpuscular Volume 85.9 fl (81-99); Monocytes # 0.6 K/mm3 (0.1-1.0)
[2024-03-25 07:12] LABS: Albumin Level 3.4 g/dl (3.5-5.0); Chloride 104 mmol/L (98-107); Sodium 136 mmol/L (136-145)
[2024-03-25 07:15] LABS: Alanine Aminotransferase 27 U/L (12-78); Albumin/Globulin Ratio 1.4 (1.1-1.8); Alkaline Phosphatase 87 U/L (38-126); Aspartate Amino Transferase 34 U/L (14-36); Bilirubin,Total 0.4 mg/dl (0.2-1.3); Blood Urea Nitrogen 25 mg/dl (7-17); Calcium 8.2 mg/dl (8.4-10.2); Carbon Dioxide 31 mmol/L (22.0-30.0); Creatinine Clearance Estimated 32 mL/min (50-200); Estimated Glomerular Filt Rate 54 ml/min (>60); GFR (African American) 66 ML/MIN (>60); Globulin 2.4 g/dL (1.3-3.2); Glucose 94 mg/dl (74-100); Total Protein,Serum 5.8 g/dl (6.3-8.2)
[2024-03-25 07:23] LABS: Eosinophils % 0.2 % (0.1-12.0); Hematocrit 28.5 % (37.0-47.0); Lymphocytes # 2.6 K/mm3 (0.7-4.5); Lymphocytes % 28.1 % (10-50); Mean Corpuscular HGB Conc 29.8 g/dL (31.8-35.4); Mean Corpuscular Hemoglobin 25.6 pg (27.0-31.2); Mean Platelet Volume 7.9 fl (7.4-10.4); Monocytes % 6.4 % (1.7-9.3); Neutrophils # 5.9 K/mm3 (1.8-7.8); Platelet Count 303 K/mm3 (142-424); Red Blood Count 3.32 M/mm3 (4.20-5.40); Red Cell Distribution Width 20.4 % (11.5-17.5); White Blood Count 9.1 K/mm3 (4.8-10.8)
[2024-03-25 07:27] LABS: Hemoglobin 8.5 g/dL (12.2-16.2)
--- NOTE | 2024-03-25 07:27 | P.DS_ITS ---
General Admission date:: 03/23/24 Discharge date: 03/25/24 HPI HPI HPI: This is a 73-year-old female with PMHx ongoing tobacco dependence, stated stopped 3 years ago COPD, CHF, CAD, chronic anemia and cachexia presented to ED with concerns of shortness of air over several days not improving with home oxygen requirement. patient home baseline is 3 L via nasal cannula. Patient has had COPD exacerbation in past, reports this is similar to a previous episode. Patient was placed on CPAP by EMS with improvement in symptoms. She denies any recent illness, fever, runny nose, cough, or chest pain. Admitted for further treatment. Hospital Course Hospital Course Hospital Course: 73-year-old female with PMHx ongoing tobacco dependence, stated stopped 3 years ago COPD, CHF, CAD, chronic anemia and cachexia presented to ED with concerns of shortness of air over several days not improving with home oxygen requireme. Here initial work up showed mild leukocytosis, chronic anemia respiratory acidosis, mild hyperkalemia negative troponin. patient continue on BIPAP continuos. CXR concern for emphysema changes, no focal consolidation. ED requested admission for inpatient management. Agreed for it after discussion about findings. Initially on BiPAP, weaned off BiPAP by morning after admission. Showing some improvement in her respiratory failure. Improved to baseline 3 L oxygen. Transition oral antibiotics to complete treatment course. Stable to discharge home with follow-up with pulmonology and cardiology. Problems addressed as follows: Acute on chronic hypercapnic respiratory failure: Severe exacerbation of chronic problem Acute exacerbation of COPD: Initiated on BiPAP on admission. Did well with improvement in blood gas. By morning, weaned to nasal cannula oxygen with normalization in her blood gas. Morning blood gas improved to pH 7.4, pCO2 45, PaO2 of 90. White count normal at 7.9. Remained normal at 9.1 on day of discharge. Tolerating 3 L nasal cannula oxygen which is her baseline. Was initially started on ceftriaxone 2 g x 1 in the ER, continued Levaquin. Will continue this for 5 days total. Steroids were initiated for COPD exacerbation. Pulmonology was consulted, recommended follow-up as an outpatient. Adjustments made to her inhaler sarah men. See med rec for full details. Given stability, will discharge home with outpatient follow-up with cardiology and pulmonology. Heart failure with preserved ejection fraction: CAD: - BNP relatively normal, less than 200. Does not appear volume overloaded. No indication for diuresis. Continue carvedilol 6.25mg twice daily, Plavix 75 mg, Lipitor 40 mg nightly Hypomagnesemia, replaced IV during admission. Mood disorder: Continue Wellbutrin 150 mg twice daily; continue Zoloft 200 mg daily Pulmonary cachexia. BMI of 16. Encourage nutrition. Boost with trays. Former smoker, no tobacco use in over 3 years. Exam Data for Last 24 hours Vital signs and Labs for Last 24 Hours: Temp Pulse Resp BP Pulse Ox O2 Del Method O2 Flow Rate 98.3 F 82 18 144/69 H 99 Nasal Cannula 3 03/25/24 04:00 03/25/24 06:14 03/25/24 04:00 03/25/24 04:00 03/25/24 06:14 03/25/24 06:40 03/25/24 06:40 FiO2 28 03/24/24 06:00 Laboratory Results - last 24 hr 03/24/24 06:00: ABG pH 7.40, ABG pCO2 45.7 H, ABG pO2 90.5, ABG HCO3 27.7 H, ABG Total CO2 29.1 H, ABG O2 Saturation 97, ABG Base Excess 3.0 H 03/24/24 06:50: WBC 7.9 D, RBC 4.12 L, Hgb 11.5 L, Hct 36.1 L, MCV 87.6, MCH 27.8, MCHC 31.7 L, RDW 20.3 H, Plt Count 249 D, MPV 8.8, Neut % (Auto) 75.3, Lymph % (Auto) 17.4, [place] % (Auto) 6.5, Eos % (Auto) 0.3, Baso % (Auto) 0.5, Neut # (Auto) 5.9, Lymph # (Auto) 1.4, [place] # (Auto) 0.5, Eos # (Auto) 0.0, Baso # (Auto) 0.0 03/24/24 08:55: Sodium 137, Potassium 4.2, Chloride 106, Carbon Dioxide 27, Anion Gap 8.2, BUN 22 H, Creatinine 0.80, Estimated Creat Clear 32, Estimated GFR 70, Est GFR ( Amer) 85, Glucose 123 H, Calcium 8.3 L, Magnesium 1.5 L , Total Bilirubin 0.3, AST 44 H, ALT 40, Alkaline Phosphatase 86, Total Protein 6.2 L, Albumin 3.7 D, Globulin 2.5, Albumin/Globulin Ratio 1.5 03/25/24 06:18: Sodium 136, Potassium 4.0, Chloride 104, Carbon Dioxide 31 H, Anion Gap 5.0, BUN 25 H, Creatinine 1.00 D, Estimated Creat Clear 32, Estimated GFR 54 L, Est GFR ( Amer) 66 D, Glucose 94 D, Calcium 8.2 L, Magnesium 2.0 D, Total Bilirubin 0.4, AST 34, ALT 27 D, Alkaline Phosphatase 87, Total Protein 5.8 L, Albumin 3.4 L, Globulin 2.4, Albumin/Globulin Ratio 1.4 I & O for Last 24 hours: Intake & Output 03/22/24 03/23/24 03/24/24 03/25/24 23:59 23:59 23:59 23:59 Intake Total 1298 / 1418 170 / 170 Output Total 0 / 0 650 / 850 1000 / 1000 Balance 0 / 428 648 / 568 -830 / -830 Weight 41.186 kg 41.186 kg 41.186 kg Constitutional Constitutional: no acute distress, cachectic, chronically ill appearing and cooperative *Routine HEENT Exam Head: Present normocephalic Eye: Present EOMI and PERRL ENT: Present mucous membranes moist *Routine Neck Exam Neck: Present supple; Absent lymphadenopathy *Routine Respiratory Exam Respiratory: Present prolonged expiratory phase, distant breath sounds and diminished air movement; Absent rhonchi, wheezes or crackles *Routine Cardiovascular Exam Cardiovascular: Present RRR *Routine Abdominal Exam Abdominal: Present soft and normoactive bowel sounds; Absent tenderness *Routine Rectal Exam Patient deferred: visual exam *Routine Exam Patient deferred: external exam *Routine Extremities Exam Extremities: Absent cyanosis, clubbing or edema *Routine Skin Exam Skin: Present intact and warm; Absent rash *Routine Neurological Exam Neurological: Present alert, oriented X3 and moving all extremities; Absent altered mental status Results Data Completed and Pending Labs on day of discharge: Labs from last 24 hours 03/25/24 03/24/24 03/24/24 06:18 08:55 06:50 WBC 7.9 D RBC 4.12 L Hgb 11.5 L Hct 36.1 L MCV 87.6 MCH 27.8 MCHC 31.7 L RDW 20.3 H Plt Count 249 D MPV 8.8 Neut % (Auto) 75.3 Lymph % (Auto) 17.4 [place] % (Auto) 6.5 Eos % (Auto) 0.3 Baso % (Auto) 0.5 Neut # (Auto) 5.9 Lymph # (Auto) 1.4 [place] # (Auto) 0.5 Eos # (Auto) 0.0 Baso # (Auto) 0.0 ABG pH ABG pCO2 ABG pO2 ABG HCO3 ABG Total CO2 ABG O2 Saturation ABG Base Excess Sodium 136 137 Potassium 4.0 4.2 Chloride 104 106 Carbon Dioxide 31 H 27 Anion Gap 5.0 8.2 BUN 25 H 22 H Creatinine 1.00 D 0.80 Estimated Creat Clear 32 32 Estimated GFR 54 L 70 Est GFR ( Amer) 66 D 85 Glucose 94 D 123 H Calcium 8.2 L 8.3 L Magnesium 2.0 D 1.5 L Total Bilirubin 0.4 0.3 AST 34 44 H ALT 27 D 40 Alkaline Phosphatase 87 86 Total Protein 5.8 L 6.2 L Albumin 3.4 L 3.7 D Globulin 2.4 2.5 Albumin/Globulin Ratio 1.4 1.5 03/24/24 06:00 WBC RBC Hgb Hct MCV MCH MCHC RDW Plt Count MPV Neut % (Auto) Lymph % (Auto) [place] % (Auto) Eos % (Auto) Baso % (Auto) Neut # (Auto) Lymph # (Auto) [place] # (Auto) Eos # (Auto) Baso # (Auto) ABG pH 7.40 ABG pCO2 45.7 H ABG pO2 90.5 ABG HCO3 27.7 H ABG Total CO2 29.1 H ABG O2 Saturation 97 ABG Base Excess 3.0 H Sodium Potassium Chloride Carbon Dioxide Anion Gap BUN Creatinine Estimated Creat Clear Estimated GFR Est GFR ( Amer) Glucose Calcium Magnesium Total Bilirubin AST ALT Alkaline Phosphatase Total Protein Albumin Globulin Albumin/Globulin Ratio DS: Diagnosis Discharge Diagnosis (1) Acute and chronic respiratory failure with hypercapnia: Status: Acute Code(s): J96.22 - Acute and chronic respiratory failure with hypercapnia (2) Acute exacerbation of chronic obstructive airways disease: Status: Acute Code(s): J44.1 - Chronic obstructive pulmonary disease with (acute) exacerbation (3) (HFpEF) heart failure with preserved ejection fraction: Status: Acute Code(s): I50.30 - Unspecified diastolic (congestive) heart failure Qualifiers: Heart failure chronicity: chronic Qualified Code(s): I50.32 - Chronic diastolic (congestive) heart failure (4) Iron deficiency anemia: Status: Acute Code(s): D50.9 - Iron deficiency anemia, unspecified Qualifiers: Iron deficiency anemia type: unspecified iron deficiency Qualified Code(s): D50.9 - Iron deficiency anemia, unspecified (5) Pulmonary cachexia due to chronic obstructive pulmonary disease: Status: Acute Code(s): R64 - Cachexia; J44.9 - Chronic obstructive pulmonary disease, unspecified (6) Ex-smoker: Status: Acute Code(s): Z87.891 - Personal history of nicotine dependence Meds Home Medications and Allergies Home Medications ?Medication ?Instructions ?Recorded ?Confirmed ?Type atorvastatin 40 mg tablet 40 mg PO HS 12/31/23 03/23/24 History bupropion HCl 150 mg tablet,12 hr 150 mg PO BID 12/31/23 03/23/24 History sustained-release carvedilol 6.25 mg tablet 6.25 mg PO DAILY 12/31/23 03/23/24 History clopidogrel 75 mg tablet 75 mg PO DAILY 12/31/23 03/23/24 History hydrocodone 7.5 mg-acetaminophen 1 tab PO Q8HP PRN Moderate Pain 12/31/23 03/24/24 History 325 mg tablet (Scale Score 5-6) sertraline 100 mg tablet 200 mg PO DAILY 12/31/23 03/24/24 History ergocalciferol (vitamin D2) 1,250 1,250 mcg PO WEEKLY 01/01/24 03/23/24 History mcg (50,000 unit) capsule (Vitamin D2) folic acid 1 mg tablet 1 mg PO DAILY 01/01/24 03/23/24 History rivastigmine 4.6 mg/24 hour 4.6 mg transdermal DAILY 03/24/24 03/24/24 History transdermal patch fluticasone fur. 100 mcg-umeclid 1 inh inhalation DAILY 30 days #60 03/25/24 Rx 62.5 mcg-vilant 25 mcg ea inhalat.powder (Trelegy Ellipta) levofloxacin 750 mg tablet 750 mg PO DAILY 3 days #3 tabs 03/25/24 Rx prednisone 20 mg tablet 40 mg (2 x 20 mg) PO DAILY 3 days 03/25/24 Rx #6 tabs New Prescriptions to Start Prescriptions: [id number] [Trelegy Ellipta] Juan Manuel Stringer levofloxacin Juan Manuel Stringer prednisone Juan Manuel Stringer Allergies Allergy/AdvReac Type Severity Reaction Status Date / Time No Known Allergies Allergy Verified 12/31/23 17:47 Discharge Plan Disposition Patient Disposition: Home, Self-Care Condition: Fair Follow up Plan Follow up with: Emani Santiago APRN [Nurse Practitioner] - Enter time for follow up Eva Bridges APRN [Primary Care Provider] - 04/01/24 1:20 pm Missael Ratliff MD [Staff Physician] - 04/02/24 2:15 pm (appointment with Lissette) Nora Vega MD [Physician] - 04/02/24 1:00 pm Prescriptions/Medication Reconciliation: New Trelegy Ellipta 100-62.5-25 mcg Blister With Device 1 inh inhalation DAILY 30 Days Qty: 60 0RF levofloxacin 750 mg tablet 750 mg PO DAILY 3 Days Qty: 3 0RF prednisone 20 mg Tablet 40 mg PO DAILY 3 Days Qty: 6 0RF Continued rivastigmine 4.6 mg/24 hour patch 24 hour 4.6 mg transdermal DAILY atorvastatin 40 mg tablet 40 mg PO HS bupropion HCl 150 mg tablet sustained-release 12 hr 150 mg PO BID carvedilol 6.25 mg tablet 6.25 mg PO DAILY sertraline 100 mg tablet 200 mg PO DAILY clopidogrel 75 mg tablet 75 mg PO DAILY hydrocodone-acetaminophen 7.5-325 mg tablet 1 tab PO Q8HP PRN (Reason: Moderate Pain (Scale Score 5-6)) folic acid 1 mg Tablet 1 mg PO DAILY ergocalciferol (vitamin D2) [Vitamin D2] 1,250 mcg (50,000 unit) Capsule 1,250 mcg PO WEEKLY Problem Reconciliation Problems Reviewed?: Yes Patient Discharge Instructions ACTIVITY: Continue current activity DIET: continue same diet Patient Instructions: DI for Respiratory Failure Print Language: [place] Providers Primary Care Provider: Eva Bridges Admit Provider: Juan Manuel Stringer Attending Provider: Juan Manuel Stringer
[2024-03-25 08:00] VITALS: BP 130/65; PULSE 82; RESP 18; TEMP 36.7; O2SAT 95
[2024-03-25] MEDS: SERTRALINE 100MG TABLET 200 MG PO (09:14)
[2024-03-25] MEDS: PANTOPRAZOLE 40MG TABLET 40 MG PO (09:14)
[2024-03-25] MEDS: FOLIC ACID 1MG TABLET 1 MG PO (09:14)
[2024-03-25] MEDS: CLOPIDOGREL 75MG TAB 75 MG PO (09:14)
[2024-03-25] MEDS: predniSONE 20MG TAB 40 MG PO (09:14)
[2024-03-25] MEDS: CARVEDILOL 6.25MG TABLET 6.25 MG PO (09:14)
[2024-03-25] MEDS: buPROPion HCl SR 150MG TAB 150 MG PO (09:14)
--- NOTE | 2024-03-25 09:32 | EXP.PULM.CON ---
History of Present Illness History of present illness: Ms. Santigao is a 73-year-old female history of smoking greater than 51-pzde-atow smoking history last smoked around 2020, carries a diagnosis of COPD, CHF, CAD, and chronic anemia presented with worsening respiratory distress and pulmonary was called for further evaluation and management. Patient also having chronic hypoxic respiratory failure at baseline needing 3 L nasal oxygen supplementation. Patient admits gradual worsening respiratory distress 3 to 4 days prior to admission along with worsening cough and productive phlegm. Patient also complains of chest pressure and tightness prior to hospital admission, concerning for possible cardiac etiology, recommend cardiac evaluation close outpatient follow-up [facility] Disclaimer: The information contained in this section may have been updated after the patient was seen, as this information can be updated by other users. Medical History (Updated 03/25/24 @ 10:21 by Nora Vega MD) COPD exacerbation BMI less than 19,adult (HFpEF) heart failure with preserved ejection fraction Tobacco dependence Dependence on supplemental oxygen Coronary artery disease Iron deficiency anemia COPD (chronic obstructive pulmonary disease) Surgical History (Updated 12/31/23 @ 23:45 by Percy Zuniga MD) Hx of esophagogastroduodenoscopy History of colonoscopy History of hysterectomy History of heart artery stent S/P cardiac catheterization Family History (Updated 12/31/23 @ 23:46 by Percy Zuniga MD) Father Alzheimer disease Mother Stroke Social History (Updated 12/31/23 @ 21:27 by Bethany Sinclair RN) Smoking Status: Former smoker tobacco type: cigarettes packs per day: 1 years smoked: 60 smoking status stop date: 3 years ago alcohol intake: former current occupational status: other Travel in the last 8 weeks: None Pulmonology Exam Inpatient Vital signs and Labs for Last 24 Hours: Temp Pulse Resp BP Pulse Ox O2 Del Method O2 Flow Rate 98.1 F 82 18 130/65 95 Nasal Cannula 2.5 03/25/24 08:00 03/25/24 08:00 03/25/24 08:00 03/25/24 08:00 03/25/24 08:00 03/25/24 08:00 03/25/24 08:00 FiO2 28 03/24/24 06:00 Laboratory Results - last 24 hr 03/24/24 06:00: ABG pH 7.40, ABG pCO2 45.7 H, ABG pO2 90.5, ABG HCO3 27.7 H, ABG Total CO2 29.1 H, ABG O2 Saturation 97, ABG Base Excess 3.0 H 03/24/24 08:55: Sodium 137, Potassium 4.2, Chloride 106, Carbon Dioxide 27, Anion Gap 8.2, BUN 22 H, Creatinine 0.80, Estimated Creat Clear 32, Estimated GFR 70, Est GFR ( Amer) 85, Glucose 123 H, Calcium 8.3 L, Magnesium 1.5 L, Total Bilirubin 0.3, AST 44 H, ALT 40, Alkaline Phosphatase 86, Total Protein 6.2 L, Albumin 3.7 D, Globulin 2.5, Albumin/Globulin Ratio 1.5 03/25/24 06:18: WBC 9.1, RBC 3.32 L, Hgb 8.5 L D, Hct 28.5 L, MCV 85.9, MCH 25.6 L, MCHC 29.8 L, RDW 20.4 H, Plt Count 303, MPV 7.9, Neut % (Auto) 65.0, Lymph % (Auto) 28.1, Bradley % (Auto) 6.4, Eos % (Auto) 0.2, Baso % (Auto) 0.2, Neut # (Auto) 5.9, Lymph # (Auto) 2.6, Bradley # (Auto) 0.6, Eos # (Auto) 0.0, Baso # (Auto) 0.0, Sodium 136, Potassium 4.0, Chloride 104, Carbon Dioxide 31 H, Anion Gap 5.0, BUN 25 H, Creatinine 1.00 D, Estimated Creat Clear 32, Estimated GFR 54 L, Est GFR ( Amer) 66 D, Glucose 94 D, Calcium 8.2 L, Magnesium 2.0 D, Total Bilirubin 0.4, AST 34, ALT 27 D, Alkaline Phosphatase 87, Total Protein 5.8 L, Albumin 3.4 L, Globulin 2.4, Albumin/Globulin Ratio 1.4 I & O for Labs for Last 24 Hours: Intake & Output 03/22/24 03/23/24 03/24/24 03/25/24 23:59 23:59 23:59 23:59 Intake Total 1298 / 1418 505 / 505 Output Total 0 / 0 650 / 850 1000 / 1000 Balance 0 / 428 648 / 568 -495 / -495 Weight 90 lb 12.8 oz 90 lb 12.8 oz 90 lb 12.793 oz Meds Home Medications and Allergies Home Medications ?Medication ?Instructions ?Recorded ?Confirmed ?Type atorvastatin 40 mg tablet 40 mg PO HS 12/31/23 03/23/24 History bupropion HCl 150 mg tablet,12 hr 150 mg PO BID 12/31/23 03/23/24 History sustained-release carvedilol 6.25 mg tablet 6.25 mg PO DAILY 12/31/23 03/23/24 History clopidogrel 75 mg tablet 75 mg PO DAILY 12/31/23 03/23/24 History hydrocodone 7.5 mg-acetaminophen 1 tab PO Q8HP PRN Moderate Pain 12/31/23 03/24/24 History 325 mg tablet (Scale Score 5-6) sertraline 100 mg tablet 200 mg PO DAILY 12/31/23 03/24/24 History ergocalciferol (vitamin D2) 1,250 1,250 mcg PO WEEKLY 01/01/24 03/23/24 History mcg (50,000 unit) capsule (Vitamin D2) folic acid 1 mg tablet 1 mg PO DAILY 01/01/24 03/23/24 History rivastigmine 4.6 mg/24 hour 4.6 mg transdermal DAILY 03/24/24 03/24/24 History transdermal patch New Prescriptions to Start Prescriptions: Allergies Allergy/AdvReac Type Severity Reaction Status Date / Time No Known Allergies Allergy Verified 12/31/23 17:47 Results Laboratory Findings 03/25/24 06:18 03/25/24 06:18 ABG ABG pH 7.40 mmol/L (7.35-7.45) 03/24/24 06:00 ABG pCO2 45.7 mmhg (35.0-45.0) H 03/24/24 06:00 ABG pO2 90.5 mmhg (80-100) 03/24/24 06:00 ABG O2 Saturation 97 % (90-100) 03/24/24 06:00 Abnormal lab findings: Abnormal Labs 03/23/24 03/23/24 03/23/24 17:40 17:47 19:09 WBC 12.8 H RBC Hgb 11.4 L Hct MCH 26.2 L MCHC 29.8 L RDW 19.9 H MPV 6.9 L Lymph # (Auto) 5.9 H ABG pCO2 ABG HCO3 ABG Total CO2 ABG Base Excess VBG pH 7.26 L 7.30 L VBG pCO2 52.1 H 59.5 H VBG pO2 73.8 H 46.6 H VBG HCO3 22.8 L VBG Total CO2 30.2 H VBG O2 Saturation 93.1 H 78.2 H VBG Base Excess -4.3 L Potassium 5.2 H Chloride 108 H Carbon Dioxide BUN 24 H Estimated GFR Glucose 105 H Calcium Magnesium AST 55 H Alkaline Phosphatase 149 H NT-Pro-B Natriuret Pep 144 H Total Protein Albumin 03/24/24 03/24/24 03/24/24 06:00 06:50 08:55 WBC RBC 4.12 L Hgb 11.5 L Hct 36.1 L MCH MCHC 31.7 L RDW 20.3 H MPV Lymph # (Auto) ABG pCO2 45.7 H ABG HCO3 27.7 H ABG Total CO2 29.1 H ABG Base Excess 3.0 H VBG pH VBG pCO2 VBG pO2 VBG HCO3 VBG Total CO2 VBG O2 Saturation VBG Base Excess Potassium Chloride Carbon Dioxide BUN 22 H Estimated GFR Glucose 123 H Calcium 8.3 L Magnesium 1.5 L AST 44 H Alkaline Phosphatase NT-Pro-B Natriuret Pep Total Protein 6.2 L Albumin 03/25/24 06:18 WBC RBC 3.32 L Hgb 8.5 L D Hct 28.5 L MCH 25.6 L MCHC 29.8 L RDW 20.4 H MPV Lymph # (Auto) ABG pCO2 ABG HCO3 ABG Total CO2 ABG Base Excess VBG pH VBG pCO2 VBG pO2 VBG HCO3 VBG Total CO2 VBG O2 Saturation VBG Base Excess Potassium Chloride Carbon Dioxide 31 H BUN 25 H Estimated GFR 54 L Glucose Calcium 8.2 L Magnesium AST Alkaline Phosphatase NT-Pro-B Natriuret Pep Total Protein 5.8 L Albumin 3.4 L Assessment and Plan *Assessment and plan (1) COPD exacerbation: Status: Acute Category: Medical Code(s): J44.1 - Chronic obstructive pulmonary disease with (acute) exacerbation (2) Acute and chronic respiratory failure with hypercapnia: Status: Acute Category: Medical Code(s): J96.22 - Acute and chronic respiratory failure with hypercapnia Plan Ms. Santiago is a 73-year-old female history of smoking greater than 26-fefi-hsyj smoking history last smoked around 2020, carries a diagnosis of COPD, CHF, CAD, and chronic anemia presented with worsening respiratory distress and pulmonary was called for further evaluation and management. Patient also having chronic hypoxic respiratory failure at baseline needing 3 L nasal oxygen supplementation. Patient admits gradual worsening respiratory distress 3 to 4 days prior to admission along with worsening cough and productive phlegm. Most recent exacerbation December 2023 discharged on prednisone and doxycycline. Blood cultures from that admission on 1 bottle grew Streptomyces sensitive to levofloxacin. CT chest from December 2023 for bilateral diffuse upper lobe predominant centrilobular emphysematous changes. Patient also complains of chest pressure and tightness prior to hospital admission, concerning for possible cardiac etiology, recommend cardiac evaluation close outpatient follow-up Mild leukocytosis upon admission, improving. Respiratory viral PCR panel not available. CXR on admission emphysematus changes. No acute air space disease. VBG on admssion hypecabic resp failure, needing Bipap, eventually resolved with subsequent arterial blood gas showed resolution of hypercarbic respiratory failure with a pH of 7.40 and pCO2 45.7. Patient also being managed for COPD exacerbation with nebulization therapies and steroids and community-acquired pneumonia with levofloxacin. On examination patient appeared significant pulmonary respiratory distress. No significant wheezing noted. At baseline oxygen supplementation. Plan: Initiate Trelegy 100 inhaler Albuterol inhaler/DuoNebs every 6 hours on as-needed basis Continue levofloxacin to complete a total of 5-day course Wean prednisone to complete a total of 5 days Continue oxygen supplementation to maintain O2 saturation goal of 89% and above, this morning on 3 L saturating 92 to 94% Patient also complains of chest pressure and tightness prior to hospital admission, concerning for possible cardiac etiology, recommend cardiac evaluation / close outpatient follow-up. CT chest December 2023 coronary artery calcifications noted. # Thank you for involving pulmonary in this patient care. Will follow the patient in pulmonary clinic in 1 to 2 weeks post discharge.
--- NOTE | 2024-03-27 13:33 | CARE MANAGER ---
Contacted patient's daughter in law. She states the patient is still having some issues with breathing, but is using medications as directed. They are aware of follow up appointments. Suggested getting in sooner with PCP or jeep driver if able if continues with breathing issues. LOKESH Hopper
== END 2024-03-25 12:21 | disposition home or self-care (01) ==
LOC: ER 17:45 → 2ND 20:42
PROVIDERS: Nurse Practitioner Family; Admitting Provider Internal Medicine Adolescent Medicine; Emergency Provider Student in an Organized Health Care Education/Training Program; PCP Nurse Practitioner Family; Visit Provider Internal Medicine Adolescent Medicine
DX: J96.22 Acute and chronic respiratory failure with hypercapnia (principal); J44.1 Chronic obstructive pulmonary disease with (acute) exacerbation; I50.32 Chronic diastolic (congestive) heart failure; D50.9 Iron deficiency anemia, unspecified; R64 Cachexia; I25.10 Atherosclerotic heart disease of native coronary artery without angina pectoris; D72.829 Elevated white blood cell count, unspecified; E87.29 Other acidosis; E87.5 Hyperkalemia; K21.9 Gastro-esophageal reflux disease without esophagitis; Z87.891 Personal history of nicotine dependence; E83.42 Hypomagnesemia; F39 Unspecified mood [affective] disorder; Z99.81 Dependence on supplemental oxygen; Z79.899 Other long term (current) drug therapy; D64.9 Anemia, unspecified; Z68.1 Body mass index [BMI] 19.9 or less, adult
CPT/HCPCS: 36415; 71045; 80053; 82803; 83735; 83880; 84484; 85025; 93005; 94640; 94660; 99291; G0378; J0696; J1956; J2919; J3475; J7030; J7620

== ENCOUNTER 2024-04-04 11:18 | Emergency (ER) | payer MEDICARE, SELFPAY ==
[2024-04-04] VITALS (7 sets, daily range): BP systolic 157–167; BP diastolic 52–83; PULSE 98–104; RESP 18–27; TEMP 36.7–36.9; O2SAT 96–100; BMI 17.7
--- NOTE | 2024-04-04 11:33 | ECG_ITS ---
APPROVED REPORT Exam: Resting ECG HR:96 bpm ECG Measurements Heart Rate 96 AXES AZ 126 P 96 QRSd 85 QRS 102 QT 327 T 120 QTc 380 Conclusion SINUS RHYTHM ARM LEADS REVERSED [INVERTED P AND QRS IN I] NORMAL ECG Electronically signed by : JEFFREY GONSALEZ, 04/09/2024 18:26:04
--- NOTE | 2024-04-04 11:40 | XR_ITS ---
FINAL REPORT CLINICAL HISTORY: shortness of breath COMPARISON: 03/23/2024 FINDINGS: The heart size is normal. The mediastinum is normal. There is no focal infiltrate or edema. There are no pleural effusions. There is no pneumothorax. There is no osseous abnormality. IMPRESSION: No acute cardiopulmonary process Reviewed, Interpreted and Dictated by Elmo Valle MD Transcribed by Yue Prieto Authenticated and [facility]
[2024-04-04 11:45] LABS: Basophils # 0.1 K/mm3 (0-0.2); Basophils % 0.4 % (0.1-2.0); Eosinophils # 0.2 K/mm3 (0.0-0.4); Eosinophils % 1.3 % (0.1-12.0); Hematocrit 33.1 % (37.0-47.0); Lymphocytes # 1.8 K/mm3 (0.7-4.5); Lymphocytes % 12.9 % (10-50); Mean Corpuscular HGB Conc 30.1 g/dL (31.8-35.4); Mean Corpuscular Volume 86.4 fl (81-99); Mean Platelet Volume 7.5 fl (7.4-10.4); Monocytes % 7.5 % (1.7-9.3); Neutrophils # 10.6 K/mm3 (1.8-7.8); Platelet Count 320 K/mm3 (142-424); Red Blood Count 3.83 M/mm3 (4.20-5.40); Red Cell Distribution Width 19.4 % (11.5-17.5); White Blood Count 13.6 K/mm3 (4.8-10.8)
[2024-04-04 11:48] LABS: Lactate Venous 1.8 mmol/L (0.4-2.0); VBG Base Excess -0.5 mmol/L (-2.4-2.3); VBG HCO3 26.6 mmol/L (23-30); VBG Oxygen Saturation 71.7 % (50-70); VBG PH 7.25 mmol/L (7.31-7.41); VBG PO2 42.6 mmol/L (28-40); VBG Total CO2 28.5 mmol/L (23-27)
[2024-04-04 11:49] LABS: Albumin Level 4.1 g/dl (3.5-5.0); Chloride 107 mmol/L (98-107); Potassium 4.6 mmoL/L (3.5-5.1); Sodium 137 mmol/L (136-145)
[2024-04-04 11:50] LABS: VBG PCO2 61.7 mmol/L (35-51)
--- NOTE | 2024-04-04 11:50 | PC.NURSE ---
aware of co2 62
[2024-04-04 11:51] LABS: Blood Urea Nitrogen 23 mg/dl (7-17); Creatinine Clearance Estimated 33 mL/min (50-200); Estimated Glomerular Filt Rate 70 ml/min (>60); GFR (African American) 85 ML/MIN (>60)
[2024-04-04 11:52] LABS: Alanine Aminotransferase 56 U/L (12-78); Albumin/Globulin Ratio 1.4 (1.1-1.8); Alkaline Phosphatase 126 U/L (38-126); Anion Gap 8.6 mEq/L (5-15); Aspartate Amino Transferase 63 U/L (14-36); Bilirubin,Total 0.4 mg/dl (0.2-1.3); Calcium 8.5 mg/dl (8.4-10.2); Carbon Dioxide 26 mmol/L (22.0-30.0); Globulin 2.9 g/dL (1.3-3.2); Glucose 109 mg/dl (74-100)
--- NOTE | 2024-04-04 12:07 | HMH.EDGENADL ---
Discharge Plan Disposition Patient Disposition: Home, Self-Care Prescriptions Prescriptions: No Action Jerad Bunchta 100-62.5-25 mcg blister with device 1 inh inhalation DAILY 90 Days Qty: 60 3RF ipratropium-albuterol 0.5 mg-3 mg(2.5 mg base)/3 mL solution for nebulization 3 ml inhalation QID PRN (Reason: shortness of breath or wheezing) 90 Days Qty: 270 3RF albuterol sulfate 90 mcg/actuation HFA aerosol inhaler 2 inh inhalation QID PRN (Reason: shortness of breath or wheezing) 90 Days Qty: 8.5 2RF cyanocobalamin (vitamin B-12) 1,000 mcg tablet 1,000 mcg PO DAILY Patient Comments: TAKE ONE (1) TABLET EVERY DAY BY ORAL ROUTE DIRECTED FOR 30 DAYS. rivastigmine 4.6 mg/24 hour patch 24 hour 4.6 mg transdermal DAILY levofloxacin 750 mg tablet 750 mg PO DAILY 3 Days Qty: 3 0RF prednisone 20 mg Tablet 40 mg PO DAILY 3 Days Qty: 6 0RF atorvastatin 40 mg tablet 40 mg PO HS bupropion HCl 150 mg tablet sustained-release 12 hr 150 mg PO BID carvedilol 6.25 mg tablet 6.25 mg PO DAILY sertraline 100 mg tablet 200 mg PO DAILY clopidogrel 75 mg tablet 75 mg PO DAILY hydrocodone-acetaminophen 7.5-325 mg tablet 1 tab PO Q8HP PRN (Reason: Moderate Pain (Scale Score 5-6)) folic acid 1 mg Tablet 1 mg PO DAILY ergocalciferol (vitamin D2) [Vitamin D2] 1,250 mcg (50,000 unit) Capsule 1,250 mcg PO WEEKLY Referrals Follow up/Referrals: Eva Bridges APRN [Primary Care Provider] - See instructions Activity Restrictions/Add. Instructions Additional Instructions/Restrictions: Continue your home medications as prescribed. If you develop any new or worsening symptoms, or if you become concerned for your health for any reason, return to the emergency department for evaluation Clinical Impressions Clinical Impression: Acute exacerbation of chronic obstructive pulmonary disease Instructions Patient Instructions: DI for Shortness of Breath Print Language Print Language: Stateless Discharge ED Provider: Sterling Sim Adult [facility] General Chief complaint: Shortness of Breath/Dyspnea Stated complaint: SOA Time Seen by Provider: 04/04/24 11:52 Mode of Arrival: EMS Source of Information: Patient and EMS Limitations: No Limitations Description of Symptoms (Recalled from ER Triage Doc. by RN): Reports increased SOB approx 2 hours ago. Denies N/V/D or pain. Related Data Home Medications ?Medication ?Instructions ?Recorded ?Confirmed atorvastatin 40 mg tablet 40 mg PO HS 12/31/23 04/02/24 bupropion HCl 150 mg tablet,12 hr 150 mg PO BID 12/31/23 04/02/24 sustained-release carvedilol 6.25 mg tablet 6.25 mg PO DAILY 12/31/23 04/02/24 clopidogrel 75 mg tablet 75 mg PO DAILY 12/31/23 04/02/24 hydrocodone 7.5 mg-acetaminophen 1 tab PO Q8HP PRN Moderate Pain 12/31/23 04/02/24 325 mg tablet (Scale Score 5-6) sertraline 100 mg tablet 200 mg PO DAILY 12/31/23 04/02/24 ergocalciferol (vitamin D2) 1,250 1,250 mcg PO WEEKLY 01/01/24 04/02/24 mcg (50,000 unit) capsule (Vitamin D2) folic acid 1 mg tablet 1 mg PO DAILY 01/01/24 04/02/24 rivastigmine 4.6 mg/24 hour 4.6 mg transdermal DAILY 03/24/24 04/02/24 transdermal patch cyanocobalamin (vitamin B-12) 1,000 mcg PO DAILY 04/02/24 04/02/24 1,000 mcg tablet Previous Rx's ?Medication ?Instructions ?Recorded levofloxacin 750 mg tablet 750 mg PO DAILY 3 days #3 tabs 03/25/24 prednisone 20 mg tablet 40 mg (2 x 20 mg) PO DAILY 3 days 03/25/24 #6 tabs albuterol sulfate 90 mcg/actuation 2 inh inhalation QID PRN shortness 04/02/24 aerosol inhaler of breath or wheezing 90 days #8.5 grams fluticasone fur. 100 mcg-umeclid 1 inh inhalation DAILY 90 days #60 04/02/24 62.5 mcg-vilant 25 mcg ea inhalat.powder (Trelegy Ellipta) ipratropium 0.5 mg-albuterol 3 mg 3 ml inhalation QID PRN shortness 04/02/24 (2.5 mg base)/3 mL nebulization of breath or wheezing 90 days #270 soln mL Allergies Allergy/AdvReac Type Severity Reaction Status Date / Time No Known Allergies Allergy Verified 04/02/24 14:38 [facility] Disclaimer: The information contained in this section may have been updated after the patient was seen, as this information can be updated by other users. Medical History (Updated 04/04/24 @ 14:18 by Sterling Sim MD) Hyperlipidemia Hypertension Dyspnea Atypical angina Chronic respiratory failure with hypoxia Encounter for screening for malignant neoplasm of lung Smoking greater than 30 pack years Pulmonary emphysema COPD exacerbation BMI less than 19,adult (HFpEF) heart failure with preserved ejection fraction Tobacco dependence Dependence on supplemental oxygen Coronary artery disease Iron deficiency anemia COPD (chronic obstructive pulmonary disease) Surgical History Hx of esophagogastroduodenoscopy History of colonoscopy History of hysterectomy History of heart artery stent S/P cardiac catheterization Family History Father Alzheimer disease Mother Stroke Social History Smoking Status: Unknown if ever smoked years smoked: 60 smoking status stop date: 3 years ago alcohol intake: former current occupational status: other Travel in the last 8 weeks: None ROS Obtained: Yes All systems reviewed & no additional complaints except as documented Physical Exam General General appearance: alert and other (Thin appearing) Head Head exam: atraumatic Eye Eye exam: Present normal appearance ENT ENT exam: Present normal external ear exam Neck Neck exam: Present full ROM Chest Chest inspection: Present normal inspection and symmetric chest wall rise Respiratory Respiratory exam: Present normal lung sounds bilaterally, respiratory distress (Mild increased work of breathing and shortened sentences), accessory muscle use and other Expanded Respiratory Exam Location: Left: wheezes and decreased breath sounds and Right: wheezes and decreased breath sounds Cardiovascular Cardiovascular exam: Present regular rate and normal rhythm Abdominal Exam Abdominal exam: Present soft; Absent tenderness or guarding Extremities Exam Extremities exam: Present normal inspection; Absent edema Back Exam Back exam: Present normal inspection Neurological Exam Neurological exam: Present alert and oriented X3 Psychiatric Psychiatric exam: Present normal affect Skin Skin exam: Present warm and dry Medical Decision Making Medical Records Medical records reviewed: Yes I reviewed the patient's medical records. Vasquez Inquiry Pt receiving controlled substance: No Vital Signs: 04/04/24 11:19 04/04/24 12:00 04/04/24 12:30 Temperature 98.4 F Temperature Source Oral Pulse Rate 98 H 98 H Pulse Rate [Radial] 100 H Respiratory Rate 22 21 19 Blood Pressure Blood Pressure [Right Arm] 167/83 H Blood Pressure Mean Blood Pressure Mean [Right Arm] 111 Blood Pressure Source Blood Pressure Source [Right Arm] Automatic Cuff Blood Pressure Position Blood Pressure Position [Right Arm] Sitting 02 Sat by Pulse Oximetry 99 97 100 Oxygen Delivery Method Nasal Cannula Nasal Cannula Nasal Cannula Oxygen Flow Rate (LPM) 3 3 3 04/04/24 13:00 04/04/24 13:34 04/04/24 13:45 Temperature Temperature Source Pulse Rate 103 H 104 H 98 H Pulse Rate [Radial] Respiratory Rate 27 H 26 H Blood Pressure 157/52 H 157/52 H Blood Pressure [Right Arm] Blood Pressure Mean 109 Blood Pressure Mean [Right Arm] Blood Pressure Source Blood Pressure Source [Right Arm] Blood Pressure Position Blood Pressure Position [Right Arm] 02 Sat by Pulse Oximetry 97 96 96 Oxygen Delivery Method Nasal Cannula Nasal Cannula Oxygen Flow Rate (LPM) 3 3 04/04/24 14:21 Temperature 98.1 F Temperature Source Oral Pulse Rate 104 H Pulse Rate [Radial] Respiratory Rate 18 Blood Pressure 157/52 H Blood Pressure [Right Arm] Blood Pressure Mean Blood Pressure Mean [Right Arm] Blood Pressure Source Automatic Cuff Blood Pressure Source [Right Arm] Blood Pressure Position Sitting Blood Pressure Position [Right Arm] 02 Sat by Pulse Oximetry Oxygen Delivery Method Nasal Cannula Oxygen Flow Rate (LPM) 3 Lab Data Lab Results 04/04/24 11:30: WBC 13.6 H, RBC 3.83 L, Hgb 10.0 L, Hct 33.1 L, MCV 86.4, MCH 26.0 L, MCHC 30.1 L, RDW 19.4 H, Plt Count 320, MPV 7.5, Neut % (Auto) 78.0, Lymph % (Auto) 12.9, Whitfield % (Auto) 7.5, Eos % (Auto) 1.3, Baso % (Auto) 0.4, Neut # (Auto) 10.6 H, Lymph # (Auto) 1.8, Whitfield # (Auto) 1.0, Eos # (Auto) 0.2, Baso # (Auto) 0.1, Total Counted 100, Neutrophils % (Manual) 76, Lymphocytes % (Manual) 19, Monocytes % (Manual) 5, Platelet Estimate Normal, RBC Morphology Not Reportable, Hypochromasia 1+, Microcytosis 1+, Schistocytes 1+, Sodium 137, Potassium 4.6, Chloride 107, Carbon Dioxide 26, Anion Gap 8.6, BUN 23 H, Creatinine 0.80, Estimated Creat Clear 33, Estimated GFR 70, Est GFR ( Amer) 85, Glucose 109 H, Calcium 8.5, Total Bilirubin 0.4, AST 63 H, ALT 56, Alkaline Phosphatase 126, Total Protein 7.0, Albumin 4.1, Globulin 2.9, Albumin/Globulin Ratio 1.4 04/04/24 11:39: VBG pH 7.25 L, VBG pCO2 61.7 H, VBG pO2 42.6 H, VBG HCO3 26.6, VBG Total CO2 28.5 H, VBG O2 Saturation 71.7 H, VBG Base Excess -0.5, VBG Lactic Acid 1.8 04/04/24 11:30 04/04/24 11:30 Orders (Tests/Meds): ED MEDICATIONS Discontinued Medications Generic Name Dose Route Start Last Admin Trade Name Freq PRN Reason Stop Dose Admin Albuterol/Ipratropium 3 ml 04/04/24 11:59 04/04/24 12:09 Ipratropium/Albuterol 3 Ml Neb IH 04/04/24 12:00 3 ml ONCE ONE Administration Magnesium Sulfate 2 gm in 50 mls @ 50 mls/hr 04/04/24 11:59 04/04/24 12:09 Magnesium Sulfate 2gm/50ml Premix IV 04/04/24 12:58 50 mls/hr ONCE ONE Administration Methylprednisolone Sodium Succinate 125 mg 04/04/24 11:59 04/04/24 12:09 Methylprednisolone Sod Succ 125mg Vial IV 04/04/24 12:00 125 mg ONCE ONE Administration Sodium Chloride 10 ml 04/04/24 11:39 Sodium Chloride 0.9% 10ml Flush Syringe IV 05/04/24 11:38 NEEDED PRN Maintain IV Site ORDERS Category Date Time Status Chest XR -- portable [XR chest portable] Stat Exams 04/04/24 11:40 Completed Complete Blood Count Auto Diff Stat Lab 04/04/24 11:30 Completed Comprehensive Metabolic Panel Stat Lab 04/04/24 11:30 Completed Venous Blood Gas Stat RT 04/04/24 11:39 Completed ECG Data Tracing #1: I reviewed this ECG and interpreted as documented below: Normal sinus rhythm. No ST elevations or depressions. QTc interval 380. ID interval normal at 126 Medical Decision Narrative: This is a 73-year-old female with a past medical history of COPD, heart failure presenting to the emergency department for complaints of shortness of breath. Patient is on 3 L nasal cannula at baseline due to her COPD. She states that she woke up today more short of breath than normal despite her home albuterol treatments. She notes that she is currently being set up for an albuterol nebulizer treatment at home but does not have it currently. She states that she has had exacerbations of her COPD similar to this in the past. She has not had to increase her oxygen at home. She is speaking in mildly shortened sentences and appeared mildly to moderately distressed. Differential diagnosis: COPD exacerbation, heart failure exacerbation, pneumonia, viral respiratory illness, among others. Workup in the emergency department included CBC, VBG, CMP, Chest x-ray Workup in the emergency department demonstrated a pH of 7.25, pCO2 of 61.7 (appears to be baseline), bicarb of 26.6, CMP unremarkable nonactionable, mild leukocytosis of 13.6 but CBC otherwise unremarkable and nonactionable. Chest x-ray interpreted by me personally and demonstrated no focal consolidations, no effusions, no pneumothorax. See radiology report for details. Patient was treated for COPD exacerbation with 125 mg of IV Solu-Medrol, 2 g of IV magnesium sulfate, and a DuoNeb nebulizer treatment. On reassessment, patient reports significant improvement in her symptoms and was not in any significant respiratory distress at this time. She was eager for discharge. Given her improvement of symptoms, and the fact that she is at her baseline oxygen requirement, is felt that she is appropriate for discharge at this time. She was encouraged to follow-up with her primary doctor. Return precautions were given. All questions were answered. She demonstrated understanding and was in agreement this time. She remained hemodynamically stable throughout her entire ED visit and was appropriate for discharge. Critical Care Critical Care Time Critical Care Time: No
[2024-04-04] MEDS: IPRATROPIUM/ALBUTEROL 3 ML NEB IH (12:09)
[2024-04-04] MEDS: METHYLPREDNISOLONE SOD SUCC 125MG VIAL 125 MG IV (12:09)
[2024-04-04] MEDS: MAGNESIUM SULFATE IN WATER 2 GM/50 ML PIGGYBACK IV (12:09)
[2024-04-04 12:12] LABS: MANUAL DIFFERENTIAL MANUAL DIFFERENTIAL (MANUAL DIFF)
[2024-04-04 12:40] LABS: Lymphocytes % 19 % (10-50); Monocytes % 5 % (2-9); Neutrophils % 76 % (42-76); Total Cells Counted 100
[2024-04-04 12:41] LABS: Microcytosis 1+; Schistocytes 1+
[2024-04-04 12:42] LABS: Platelet Estimate Normal
[2024-04-04 12:43] LABS: Hypochromasia 1+
== END 2024-04-04 14:53 | disposition home or self-care (01) ==
PROVIDERS: Emergency Provider Student in an Organized Health Care Education/Training Program; PCP Nurse Practitioner Family
DX: J44.1 Chronic obstructive pulmonary disease with (acute) exacerbation (principal); R06.02 Shortness of breath; I25.119 Atherosclerotic heart disease of native coronary artery with unspecified angina pectoris; I10 Essential (primary) hypertension; E78.5 Hyperlipidemia, unspecified; Z87.891 Personal history of nicotine dependence
CPT/HCPCS: 71045; 80053; 82803; 85007; 85025; 85027; 93005; 96365; 96375; 99285; J2919; J3475; J7620

== ENCOUNTER 2024-05-07 12:42 | Outpatient (CLI) | payer MEDICARE, SELFPAY ==
[2024-05-07 13:14] LABS: Basophils # 0.1 K/mm3 (0-0.2); Basophils % 0.6 % (0.1-2.0); Eosinophils # 0.4 K/mm3 (0.0-0.4); Eosinophils % 3.5 % (0.1-12.0); Hemoglobin 9.6 g/dL (12.2-16.2); Lymphocytes # 2.5 K/mm3 (0.7-4.5); Lymphocytes % 23.6 % (10-50); Mean Corpuscular HGB Conc 30.1 g/dL (31.8-35.4); Mean Corpuscular Hemoglobin 25.2 pg (27.0-31.2); Mean Corpuscular Volume 83.7 fl (81-99); Mean Platelet Volume 7.4 fl (7.4-10.4); Monocytes # 0.9 K/mm3 (0.1-1.0); Monocytes % 8.2 % (1.7-9.3); Neutrophils # 6.8 K/mm3 (1.8-7.8); Neutrophils % 64.1 % (37.0-80.0); Platelet Count 372 K/mm3 (142-424); Red Blood Count 3.82 M/mm3 (4.20-5.40); Red Cell Distribution Width 16.5 % (11.5-17.5); White Blood Count 10.6 K/mm3 (4.8-10.8)
[2024-05-07 13:39] LABS: Iron 35 ug/dL (37-170)
[2024-05-07 13:49] LABS: Total Iron Binding Capacity 461 ug/dL (265-497)
[2024-05-07 14:15] LABS: Ferritin 20.4 ng/ml (11.1-264)
== END 2024-05-07 23:59 | disposition home or self-care (01) ==
LOC: LAB 12:44
PROVIDERS: PCP Nurse Practitioner Family; Visit Provider Internal Medicine Medical Oncology
DX: D64.9 Anemia, unspecified (principal)
CPT/HCPCS: 36415; 82728; 83540; 83550; 85025

== ENCOUNTER 2024-05-09 07:32 | Outpatient (CLI) | payer MEDICARE, SELFPAY ==
--- NOTE | 2024-05-09 | CA_ITS ---
APPROVED REPORT Exam: Pharmacologic Technologist: Kelsea Fernandez, Ht: 5 ft 1 in Wt: 95 lbs BSA: 1.38 m2 HR: 86 bpm BP: 133/50 mmHg Rhythm: NSR Medical History Medical History: HTN, Hyperlipidemia, Smoking Medications: Atorvastatin,,,,, Carvedilol,,,,, Duoneb,,,,, FOLIC ACID,,,,, Albuterol,,,,, CloPIdogrel,,,,, Prednisone,,,,, Vit B12,,,,, Sertraline,,,,, Levofloxacin,,,,, RIvastigmine,,,,, Trelegy,,,,, Allergies: No known drug allergies Cardiac Risk Factors: HTN, Hyperlipidemia, Smoking Stress Test Details Test: LEXISCAN HR Resting HR: 88 bpm Max Heart Rate (APMHR): 146 bpm Max HR Achieved: 114 bpm Target HR (85% APMHR): 124 bpm % of APMHR: 78 Recovery HR: 93 bpm BP Resting BP: 133/50 mmHg Max BP: 162/48 mmHg Recovery BP: 150.0/62.0 mmHg ECG Resting ECG: NSR Stress ECG: No significant ST changes Arrhythmia: PVCs Clinical Exercise duration: 04:01 min Highest Stage Achieved: Exercise capacity: 1.0 METs Stress ECG Conclusion Pt had dyspnea and head discomfort. No chest pain. Ectopy: PVCs ST changes: No significant ST changes Conclusion: Unremarkable ECG portion of lexiscan stress test. Myoview images reported separately. Test Summary REST 05:05 . . 88 . 133/ 50 . . Stage 1 01:00 . . 113 . . . . Stage 2 01:00 . . 109 . 162/ 48 . . Stage 3 01:00 . . 102 . 150/ 48 . . Stage 4 01:00 . . 101 . . . . Stage 4 01:01 . . 101 . . . Stop exercise at 04:01 RECOVERY 01:00 . . 105 . 156/ 52 . . RECOVERY 02:00 . . 97 . 156/ 52 . . RECOVERY 03:00 . . 104 . 146/ 56 . . RECOVERY 03:57 . . 93 . 150/ 62 . . Electronically signed by : Cuca Benedict MD 05/13/2024 12:23:36
--- NOTE | 2024-05-09 07:43 | CA_ITS ---
APPROVED REPORT EXAM: Comprehensive 2D, Doppler, and color-flow Echocardiogram Lawn Mower Repairer: ROBERT Arechiga, RVS Ht: 5 ft 0 in Wt: 95lbs BSA: 1.36 BP: 104/68 mmHg Indications: HFrEF, COPD, Dyspnea, Anemia, Smoker, SOA Echo Enhancing Agent Comments: TDS:limited windows lung impedence 2D Dimensions Left Atrium 2.66 cm F: 2.7 - 3.8 LA Volume 31.30 mL LA Volume Index 23.01 mL/m2 (M/F) 16-34 EF AP4 49.30 % GL Strain -20.7 % M-Mode Dimensions RVDd 1.61 cm (0.9-2.6) LA Diam 3.48 cm (1.9-4.0) LVDd 3.58 cm (3.5-5.7) LVDs 2.28 cm (3.5-5.7) IVSd 1.02 cm (0.6-1.1) PWd 0.63 cm (0.6-1.1) EF (Teich) 67.00% EPSs 0.57 cm FS 36.30% EDV (Teich) 53.70 mL TAPSE 2.14 (<1.7) ESV (Teich) 17.70 mL LV Diastology E Decel Time 230 (160-240 msec) E/A Ratio 1.28 MED A' 8.10 cm/s LAT A' 9.40 cm/s Aortic Valve MELI Index 1.19 cm2/m2 AoV Peak Prasanna. 200.0 (50-130 cm/s) AO Peak GR. 15.90 mmHg AO Mean GR. 8.10 (<5 mmHg) AO VTI 36.7 (18-25 cm) MELI (VTI) 1.66 (2.5-4.5 cm2) Mitral Valve MV A Velocity 90.0 (40-130 cm/s) E/A Ratio 1.28 MV Mean Gr. 2.20 (<2mmHg) Pulmonary Valve PV Peak Velocity 122.0 (50-150 cm/s) Tricuspid Valve TR P. Velocity 247.00 cm/s RAP Estimate 10.00 mmHg RVSP 34.40 mmHg Left Ventricle The left ventricle is normal size. The left ventricular systolic function is normal. The left ventricular ejection fraction is within the normal range. There is increased LV wall thickness. There is normal LV segmental wall motion. Transmitral Doppler flow pattern suggests impaired LV relaxation. LVEF is 55%. Right Ventricle Right ventricle is mildly dilated. The right ventricular systolic function is normal. Atria The left atrium size is normal. The right atrium size is normal. There is no Doppler evidence of interatrial shunt. Aortic Valve The aortic valve is mildly thickened. No hemodynamically significant aortic stenosis. Trace aortic regurgitation. Mitral Valve The mitral valve leaflets are mildly thickened. No evidence of mitral valve stenosis. Trace mitral regurgitation. Tricuspid Valve The tricuspid valve leaflets are thin and pliable. Mild tricuspid regurgitation. RVSP is 25-30 mmHg. Pulmonic Valve The pulmonary valve is normal in structure. Trace pulmonic regurgitation. Great Vessels The aortic root is normal in size. The ascending aorta is not well-visualized. IVC is normal in size and collapses >50% with inspiration. The Pericardium There is no pericardial effusion. Other Information Study Quality: Technically Difficult Conclusion Technically difficult study due to poor acoustic windows. Normal biventricular systolic function. Mild RV dilation. Mild TR. RVSP 25-30 mmHg. Electronically signed by : Cuca Benedict MD 05/13/2024 00:11:55
--- NOTE | 2024-05-09 07:43 | NM_ITS ---
APPROVED REPORT Exam: Nuclear Stress Test Indication: chest pain..soa..fatigue Patient Location: Outpatient Stress Tech: Kelsea Fernandez SC Tech:Carola Li JENNIFER RT(R)(N) Ht: 5 ft 1 in Wt: 104 lbs Bra Size: 34a HR: 88 bpm BP: 133/50 mmHg BSA: 1.43 m2 TID: 0.95 BMI: 19.6 History: chest pain..soa..fatigue Procedure: Patient received 0.4 mg of intravenous Lexiscan, resting heart rate 88 bpm, resting blood pressure 133/50 mmHg, with Lexiscan maximum heart rate achieved was 114 bpm which is 85 % of the maximum predicted heart rate and blood pressure was 162/48 mmHg. With Lexiscan, patient denied any complaint of chest pain. The patient is not able to lay on her abdomen for prone images. Cardiac Stress and Resting SPECT Images: Cardiac Stress and Resting SPECT images were obtained using technetium 99m Myoview 29.2 mCi stress and 10.26 mCi at rest. The patient could not lie on her abdomen. Therefore, prone stress imaging could not be performed. This may affect the diagnostic interpretation of the study findings. Resting and stress imaging in supine positions demonstrate no evidence of fixed or reversible perfusion defects. Gated imaging demonstrates normal global and regional LV systolic function. LVEF is calculated at 66%. Conclusion: No evidence of fixed or reversible perfusion defects. Gated imaging demonstrates normal global and regional LV systolic function. LVEF is calculated at 66%. Electronically signed by : Cuca Benedict MD 05/13/2024 12:25:23
[2024-05-09] MEDS: SODIUM CHLORIDE 0.9% 10ML SYR (RAD ONLY) 10 ML IV ×2 (10:42)
[2024-05-09] MEDS: ISOTOPE MYOVIEW (PER STUDY) 1 DOSE IV (10:42)
[2024-05-09] MEDS: REGADENOSON 0.4MG/5ML SYRINGE 0.4 MG IV (10:42)
== END 2024-05-09 23:59 | disposition home or self-care (01) ==
PROVIDERS: PCP Nurse Practitioner Family; Visit Provider Nurse Practitioner Family
DX: I25.10 Atherosclerotic heart disease of native coronary artery without angina pectoris (principal); I50.32 Chronic diastolic (congestive) heart failure; R06.00 Dyspnea, unspecified
CPT/HCPCS: 78452; 93017; 93018; 93306; A9502; J2785

== ENCOUNTER 2024-06-10 13:06 | Emergency (ER) | payer MEDICARE, SELFPAY ==
[2024-06-10 13:06] VITALS: BP 183/96; PULSE 89; RESP 24; TEMP 36.7; O2SAT 98; BMI 19.8
--- NOTE | 2024-06-10 13:18 | ECG_ITS ---
APPROVED REPORT Exam: Resting ECG HR:88 bpm ECG Measurements Heart Rate 88 AXES WA 127 P 80 QRSd 81 QRS 75 QT 331 T 67 QTc 376 Conclusion Sinus rhythm Right atrial enlargement Electronically signed by : SUZAN COLLINS, 06/11/2024 15:03:19
[2024-06-10 13:22] LABS: Lactate Venous 1.5 mmol/L (0.4-2.0); VBG Base Excess -6.3 mmol/L (-2.4-2.3); VBG HCO3 20.6 mmol/L (23-30); VBG Oxygen Saturation 73.9 % (50-70); VBG PCO2 46.1 mmol/L (35-51); VBG PH 7.27 mmol/L (7.31-7.41); VBG PO2 41.3 mmol/L (28-40); VBG Total CO2 22.1 mmol/L (23-27)
--- NOTE | 2024-06-10 13:26 | XR_ITS ---
PROCEDURE INFORMATION: Exam: XR Chest Exam date and time: 06/10/2024 1:39 PM Age: 73 years old Clinical indication: Shortness of breath; Additional info: SOA, pleural effusion history TECHNIQUE: Imaging protocol: Radiologic exam of the chest. Views: 1 view. COMPARISON: CR XR CHEST PORTABLE 04/04/2024 11:44 AM FINDINGS: Lungs: No evidence of airspace infiltrate. No pulmonary edema. Pleural spaces: No visible pleural effusion. No pneumothorax. Heart/Mediastinum: Cardiomediastinal silouhette is within normal limits. Bones/joints: No evidence of acute osseous abnormality. IMPRESSION: No acute findings.
[2024-06-10 13:32] LABS: Basophils # 0.1 K/mm3 (0-0.2); Basophils % 0.6 % (0.1-2.0); Eosinophils # 0.4 K/mm3 (0.0-0.4); Eosinophils % 3.2 % (0.1-12.0); Hematocrit 35.1 % (37.0-47.0); Hemoglobin 10.8 g/dL (12.2-16.2); Lymphocytes % 17.8 % (10-50); Mean Corpuscular HGB Conc 30.7 g/dL (31.8-35.4); Mean Corpuscular Volume 74.8 fl (81-99); Mean Platelet Volume 7.1 fl (7.4-10.4); Monocytes # 0.7 K/mm3 (0.1-1.0); Monocytes % 6.5 % (1.7-9.3); Neutrophils # 8.2 K/mm3 (1.8-7.8); Neutrophils % 71.8 % (37.0-80.0); Platelet Count 547 K/mm3 (142-424); Red Blood Count 4.69 M/mm3 (4.20-5.40); Red Cell Distribution Width 16.1 % (11.5-17.5); White Blood Count 11.4 K/mm3 (4.8-10.8)
[2024-06-10] MEDS: IPRATROPIUM/ALBUTEROL 3 ML NEB 9 ML IH (13:40)
[2024-06-10 13:41] VITALS: PULSE 85; PULSE 86
[2024-06-10 13:46] LABS: Alanine Aminotransferase 21 U/L (12-78); Albumin/Globulin Ratio 1.2 (1.1-1.8); Alkaline Phosphatase 171 U/L (38-126); Anion Gap 11.8 mEq/L (5-15); Aspartate Amino Transferase 32 U/L (14-36); Bilirubin,Total 0.4 mg/dl (0.2-1.3); Blood Urea Nitrogen 32 mg/dl (7-17); Calcium 9.2 mg/dl (8.4-10.2); Carbon Dioxide 20 mmol/L (22.0-30.0); Chloride 111 mmol/L (98-107); Creatinine Clearance Estimated 34 mL/min (50-200); Estimated Glomerular Filt Rate 49 ml/min (>60); GFR (African American) 59 ML/MIN (>60); Globulin 3.4 g/dL (1.3-3.2); Glucose 107 mg/dl (74-100); Potassium 4.8 mmoL/L (3.5-5.1); Sodium 138 mmol/L (136-145); Total Protein,Serum 7.4 g/dl (6.3-8.2)
--- NOTE | 2024-06-10 13:46 | ED_ITS ---
Discharge Plan Disposition Patient Disposition: Home, Self-Care Prescriptions Prescriptions: New prednisone 20 mg tablet 40 mg PO DAILY 5 Days Qty: 10 0RF No Action Trelegy Ellipta 100-62.5-25 mcg blister with device 1 inh inhalation DAILY 90 Days Qty: 60 3RF ipratropium-albuterol 0.5 mg-3 mg(2.5 mg base)/3 mL solution for nebulization 3 ml inhalation QID PRN (Reason: shortness of breath or wheezing) 90 Days Qty: 270 3RF albuterol sulfate 90 mcg/actuation HFA aerosol inhaler 2 inh inhalation QID PRN (Reason: shortness of breath or wheezing) 90 Days Qty: 8.5 2RF cyanocobalamin (vitamin B-12) 1,000 mcg tablet 1,000 mcg PO DAILY Patient Comments: TAKE ONE (1) TABLET EVERY DAY BY ORAL ROUTE DIRECTED FOR 30 DAYS. furosemide [Lasix] 20 mg tablet 20 mg PO DAILY Qty: 30 2RF rivastigmine 4.6 mg/24 hour patch 24 hour 4.6 mg transdermal DAILY levofloxacin 750 mg tablet 750 mg PO DAILY 3 Days Qty: 3 0RF atorvastatin 40 mg tablet 40 mg PO HS bupropion HCl 150 mg tablet sustained-release 12 hr 150 mg PO BID carvedilol 6.25 mg tablet 6.25 mg PO DAILY sertraline 100 mg tablet 200 mg PO DAILY clopidogrel 75 mg tablet 75 mg PO DAILY hydrocodone-acetaminophen 7.5-325 mg tablet 1 tab PO Q8HP PRN (Reason: Moderate Pain (Scale Score 5-6)) folic acid 1 mg Tablet 1 mg PO DAILY ergocalciferol (vitamin D2) [Vitamin D2] 1,250 mcg (50,000 unit) Capsule 1,250 mcg PO WEEKLY Referrals Follow up/Referrals: Provider,MD Nitesh [Primary Care Provider] - See instructions Nora Vega MD [Physician] - See instructions Activity Restrictions/Add. Instructions Additional Instructions/Restrictions: Call your family doctor to establish care for this visit to the emergency department and schedule follow-up within 48 hours to ensure improvement. If you have any worsening of your condition or any other concerning signs or symptoms, return to the emergency department or your primary care doctor for further evaluation. Call pulmonology to set up appointment for follow-up. Clinical Impressions Clinical Impression: Acute dyspnea Print Language Print Language: Turkmen Discharge ED Provider: Charlie Perez HPI General Chief Complaint: Shortness of Breath/Dyspnea Stated Complaint: SOA Time Seen by Provider: 06/10/24 13:13 Mode of Arrival: EMS Source of Information: Patient Limitations: No Limitations Description of Symptoms (Recalled from ER Triage Doc. by RN): pt has hx of copd and is here today for SOA, pt wears 3L all the time at home, ems gave duoneb x1 and patient feels better History of Present Illness HPI narrative: Please note that above description of symptoms, in this electronic medical record under categorization of recalled from ER triage doctor by RN are reflective of an initial nursing assessment, however, is not reflective of my full history and physical exam that was personally taken and clarified. Consequentially, this preceding description of symptoms, which may include the patient's categorized chief complaint in the EMR, do not reflect my personal clinical impression, and the ultimate description of history of present illness and patient stated complaints should be deferred to this section of the note. Unless stated otherwise or congruent with this section of the note, additional signs, symptoms, or incongruence should be interpreted as inaccurate with my clinical impression. Related Data Home Medications ?Medication ?Instructions ?Recorded ?Confirmed atorvastatin 40 mg tablet 40 mg PO HS 12/31/23 06/04/24 bupropion HCl 150 mg tablet,12 hr 150 mg PO BID 12/31/23 06/04/24 sustained-release carvedilol 6.25 mg tablet 6.25 mg PO DAILY 12/31/23 06/04/24 clopidogrel 75 mg tablet 75 mg PO DAILY 12/31/23 06/04/24 hydrocodone 7.5 mg-acetaminophen 1 tab PO Q8HP PRN Moderate Pain 12/31/23 06/04/24 325 mg tablet (Scale Score 5-6) sertraline 100 mg tablet 200 mg PO DAILY 12/31/23 06/04/24 ergocalciferol (vitamin D2) 1,250 1,250 mcg PO WEEKLY 01/01/24 06/04/24 mcg (50,000 unit) capsule (Vitamin D2) folic acid 1 mg tablet 1 mg PO DAILY 01/01/24 06/04/24 rivastigmine 4.6 mg/24 hour 4.6 mg transdermal DAILY 03/24/24 06/04/24 transdermal patch cyanocobalamin (vitamin B-12) 1,000 mcg PO DAILY 04/02/24 06/04/24 1,000 mcg tablet Previous Rx's ?Medication ?Instructions ?Recorded levofloxacin 750 mg tablet 750 mg PO DAILY 3 days #3 tabs 03/25/24 albuterol sulfate 90 mcg/actuation 2 inh inhalation QID PRN shortness 04/02/24 aerosol inhaler of breath or wheezing 90 days #8.5 grams fluticasone fur. 100 mcg-umeclid 1 inh inhalation DAILY 90 days #60 04/02/24 62.5 mcg-vilant 25 mcg ea inhalat.powder (Trelegy Ellipta) ipratropium 0.5 mg-albuterol 3 mg 3 ml inhalation QID PRN shortness 04/02/24 (2.5 mg base)/3 mL nebulization of breath or wheezing 90 days #270 soln mL furosemide 20 mg tablet (Lasix) 20 mg PO DAILY #30 tabs 06/04/24 prednisone 20 mg tablet 40 mg (2 x 20 mg) PO DAILY 5 days 06/10/24 #10 tabs Allergies Allergy/AdvReac Type Severity Reaction Status Date / Time No Known Allergies Allergy Verified 06/04/24 14:48 [facility] Disclaimer: The information contained in this section may have been updated after the patient was seen, as this information can be updated by other users. Medical History (Updated 06/10/24 @ 14:58 by Charlie Perez MD) Pulmonary hypertension Hyperlipidemia Hypertension Dyspnea Atypical angina Chronic respiratory failure with hypoxia Encounter for screening for malignant neoplasm of lung Smoking greater than 30 pack years Pulmonary emphysema COPD exacerbation BMI less than 19,adult (HFpEF) heart failure with preserved ejection fraction Tobacco dependence Dependence on supplemental oxygen Coronary artery disease Iron deficiency anemia COPD (chronic obstructive pulmonary disease) Surgical History Hx of esophagogastroduodenoscopy History of colonoscopy History of hysterectomy History of heart artery stent S/P cardiac catheterization Family History Father Alzheimer disease Mother Stroke Social History Smoking Status: Former smoker tobacco type: cigarettes packs per day: 1 years smoked: 60 smoking status stop date: 3 years ago alcohol intake: former current occupational status: other Travel in the last 8 weeks: None Other Medical History Have you received the Flu Vaccine for this season: No Have you received the Pneumonia Vaccine: No ROS Obtained: Yes All systems reviewed & no additional complaints except as documented Physical Exam General General appearance: alert and in distress (Mild respiratory distress, normal, per patient) Neck Neck exam: Present trachea midline Chest Chest inspection: Present normal inspection and symmetric chest wall rise Respiratory Respiratory exam: Present wheezes and other (Nearly no right sided breath sounds); Absent respiratory distress, stridor, accessory muscle use or prolonged expiratory phase Cardiovascular Cardiovascular exam: Present regular rate, normal rhythm and other (Pulses equal and symmetric in upper and lower extremities) Extremities Exam Extremities exam: Absent edema Neurological Exam Neurological exam: Present alert, oriented X3 and CN II-XII intact Skin Skin exam: Present warm and dry; Absent cyanosis, diaphoresis or pallor HEART Score HEART Score HEART Score assessment performed?: Yes HEART Score: 4 Critical Care Critical Care Time Critical Care Time: No Medical Decision Making Medical Records Medical records reviewed: Yes I reviewed the patient's medical records. Vasquez Inquiry Pt receiving controlled substance: No Vasquez was queried for this patient: No Vital Signs Vital Signs: 06/10/24 13:06 06/10/24 13:41 06/10/24 13:41 Temperature 98.1 F Temperature Source Oral Pulse Rate 85 86 Pulse Rate [Right Radial] 89 Respiratory Rate 24 Blood Pressure [Right Arm] 183/96 H Blood Pressure Mean [Right Arm] 125 02 Sat by Pulse Oximetry 98 Oxygen Delivery Method Room Air Lab Data Labs: Lab Results 06/10/24 13:09: WBC 11.4 H, RBC 4.69, Hgb 10.8 L, Hct 35.1 L, MCV 74.8 L, MCH 23.0 L, MCHC 30.7 L, RDW 16.1, Plt Count 547 H, MPV 7.1 L, Neut % (Auto) 71.8, Lymph % (Auto) 17.8, [place] % (Auto) 6.5, Eos % (Auto) 3.2, Baso % (Auto) 0.6, N eut # (Auto) 8.2 H, Lymph # (Auto) 2.0, [place] # (Auto) 0.7, Eos # (Auto) 0.4, Baso # (Auto) 0.1, D-Dimer 0.44, Sodium 138, Potassium 4.8, Chloride 111 H, C arbon Dioxide 20 L, Anion Gap 11.8, BUN 32 H, Creatinine 1.10 H, Estimated Creat Clear 34, Estimated GFR 49 L, Est GFR ( Amer) 59, Glucose 107 H, Calcium 9.2, Total Bilirubin 0.4, AST 32, ALT 21, Alkaline Phosphatase 171 H, Troponin I < 0.01, NT-Pro-B Natriuret Pep 514 H, Total Protein 7.4, Albumin 4.0, Globulin 3.4 H, Albumin/Globulin Ratio 1.2 06/10/24 13:19: VBG pH 7.27 L, VBG pCO2 46.1, VBG pO2 41.3 H, VBG HCO3 20.6 L, V BG Total CO2 22.1 L, VBG O2 Saturation 73.9 H, VBG Base Excess -6.3 L, VBG Lactic Acid 1.5 06/10/24 13:09 06/10/24 13:09 Response Orders (Tests/Meds): ED MEDICATIONS Discontinued Medications Generic Name Dose Route Start Last Admin Trade Name Freq PRN Reason Stop Dose Admin Albuterol/Ipratropium 9 ml 06/10/24 13:26 06/10/24 13:40 Ipratropium/Albuterol 3 Ml Neb 06/10/24 13:27 9 ml ONCE ONE Administration ORDERS Category Date Time Status CXR --portable [XR chest portable] Stat Exams 06/10/24 13:26 Completed CBC w/Auto Diff [Complete Blood Count Auto Diff] Stat Lab 06/10/24 13:09 Completed CMP [Comprehensive Metabolic Panel] Stat Lab 06/10/24 13:09 Completed D-Dimer Stat Lab 06/10/24 13:09 Completed NT Pro Brain Natriuretic Pep. Stat Lab 06/10/24 13:09 Completed Trop I [Troponin I] Stat Lab 06/10/24 13:09 Completed Troponin I Q3H Lab 06/10/24 16:30 Ordered Troponin I Q3H Lab 06/10/24 19:30 Ordered VBG [Venous Blood Gas] Stat RT 06/10/24 13:19 Completed VBG [Venous Blood Gas] Stat RT 06/10/24 13:26 Ordered MDM Narrative Medical Decision Narrative: 73-year-old female history of hypertension, hyperlipidemia, pulmonary hypertension, COPD not currently smoking, 3 L nasal cannula needed at home, CAD status post stenting, presenting with shortness of breath. Patient states that she was seen last week for similar symptoms. Has not gotten any better. Denies cough, nausea, vomiting, fevers, chills, unintended weight loss, abdominal pain, diarrhea, or any other concerns. States that she feels like she just cannot catch her breath. Has not required any more oxygen at home. On further conversation, patient states that she was once told that she had fluid on her right lung, thinks this may be related. History was obtained via conversation with patient. On arrival, patient hemodynamically stable, alert, oriented x4, appropriate, GCS 15, moving all extremities spontaneously, pupils equal and reactive to light. Full physical exam performed and significant for chronically ill-appearing female mild respiratory distress. [address] cannula in place, which is her home oxygen. Abdomen soft, nontender, nondistended. Cardiac exam with no murmurs gallops rubs. No lower extremity edema. Essentially no right- sided breath sounds, left-sided breath sounds with very mild end expiratory wheezes. Patient tachypneic without increased work of breathing differential includes pulmonary edema, pleural effusions, ACS, [place], PE, pneumothorax, CHF, among others. Patient was given supplemental oxygen, DuoNebs for symptomatic management and correction of underlying abnormalities. Patient placed on continuous cardiac monitoring and continuous pulse ox with initial blood pressure 183/96, heart rate 89, saturation 98% on 3 L nasal cannula. Independent interpretation of EKG shows sinus rhythm 88 beats a minute. No acute ischemic change. MS 127, QRS 81, QTc 376. Normal axis. Workup independently interpreted and significant for mild leukocytosis with neutrophilia. VBG with mild metabolic acidosis. Nonactionable chemistry. Patient's troponin negative, BNP elevated at 515. Chest x-ray without acute cardiopulmonary airspace disease, no evidence of edema. See radiology read for full review of final results. On reevaluation, patient states she is feeling a little better and agreeable for outpatient management with pulmonology and primary care, I feel this appropriate. Given patient presentation, workup, history, this most likely represents acute COPD exacerbation. Because patient at baseline without signs or symptoms of clinical decompensation, deemed appropriate for discharge. Results were relayed to patient who voiced understanding and were agreeable to outpatient management and follow up. I discussed my clinical impression with patient and answered all questions. At this time, the evidence for any other entities in the differential is insufficient to warrant any further testing or ED observation. This was explained as well. Advisory was given that persistent or worsening symptoms require further evaluation. I confirmed the understanding of this discussion. Electrician Helper disclaimer Much of this encounter note is an electronic factory engineer spoken language to printed text. Electronic factory engineer of the spoken language may permit errors. Although I have reviewed the note, some errors may still exist.
[2024-06-10 13:50] LABS: D-Dimer 0.44 ug/mL (0.0-0.5)
[2024-06-10 13:58] LABS: NT Pro Brain Natriuretic Pep. 514 pg/mL (0-125)
[2024-06-10 14:04] LABS: Troponin I < 0.01 ng/ml (0.00-0.034)
[2024-06-10 14:30] VITALS: BP 168/79; PULSE 94; O2SAT 98
[2024-06-10 15:01] VITALS: BP 154/113; PULSE 94; O2SAT 97
[2024-06-10 15:05] VITALS: BP 168/79; PULSE 91; RESP 20; TEMP 36.8; O2SAT 98
== END 2024-06-10 15:39 | disposition home or self-care (01) ==
PROVIDERS: Emergency Provider Emergency Medicine
DX: R06.00 Dyspnea, unspecified (principal); R06.02 Shortness of breath
CPT/HCPCS: 71045; 80053; 82803; 83880; 84484; 85025; 85378; 93005; 99284; J7620

== ENCOUNTER 2025-01-07 11:40 | Outpatient (CLI) | payer MEDICARE, SELFPAY ==
[2025-01-07 12:26] LABS: Basophils % 0.4 % (0.1-2.0); Eosinophils # 0.2 Kmm3 (0.0-0.4); Eosinophils % 2.4 % (0.1-12.0); Hematocrit 29.5 % (37.0-47.0); Hemoglobin 8.5 g/dL (12.2-16.2); Immature Granulocytes # 0.01 10^3uL; Immature Granulocytes % 0.1 %; Lymphocytes # 1.7 K/mm3 (0.7-4.5); Lymphocytes % 24.1 % (10-50); Mean Corpuscular HGB Conc 28.8 g/dL (31.8-35.4); Mean Corpuscular Hemoglobin 21.7 pg (27.0-31.2); Mean Corpuscular Volume 75.3 fl (81-99); Monocytes # 0.7 K/mm3 (0.1-1.0); Monocytes % 9.7 % (1.7-9.3); Neutrophils # 4.5 K/mm3 (1.8-7.8); Neutrophils % 63.3 % (37.0-80.0); Nucleated Red Blood Cells # 0 10^3/uL; Nucleated Red Blood Cells % 0 %; Platelet Count 284 K/mm3 (142-424); Red Blood Count 3.92 M/mm3 (4.20-5.40); Red Cell Distribution Width 21.6 % (11.5-17.5); Red Cell Distribution Width-SD 58.4 fL; White Blood Count 7.1 K/mm3 (4.8-10.8)
[2025-01-07 12:48] LABS: Albumin Level 3.7 g/dl (3.5-5.0); Chloride 111 mmol/L (98-107); Potassium 3.7 mmoL/L (3.5-5.1); Sodium 143 mmol/L (136-145)
[2025-01-07 12:50] LABS: Blood Urea Nitrogen 18 mg/dl (7-17); Estimated Glomerular Filt Rate 61 ml/min (>60); GFR (African American) 74 ML/MIN (>60)
[2025-01-07 12:51] LABS: Alanine Aminotransferase 14 U/L (12-78); Alkaline Phosphatase 119 U/L (38-126); Anion Gap 10.7 mEq/L (5-15); Aspartate Amino Transferase 27 U/L (14-36); Bilirubin,Total < 0.1 mg/dl (0.2-1.3); Calcium 7.8 mg/dl (8.4-10.2); Carbon Dioxide 25 mmol/L (22.0-30.0); Chol/HDL Ratio 1.5 (1-3.5); Cholesterol 146 mg/dl (140-200); Glucose 97 mg/dl (74-100); HDL Cholesterol 97 mg/dl (40-60); Magnesium 1.1 mg/dl (1.6-2.3); Total Protein,Serum 6.1 g/dl (6.3-8.2); Triglycerides 62 mg/dl (30-150); VLDL Cholesterol 12 mg/dL (0-40)
[2025-01-07 12:58] LABS: NT Pro Brain Natriuretic Pep. 785 pg/mL (0-450)
[2025-01-07 13:02] LABS: Direct LDL Cholesterol 35.45 mg/dL (100-129)
[2025-01-07 13:05] LABS: Free T4 (Free Thyroxine) 0.89 ng/dl (0.78-2.19)
[2025-01-07 13:19] LABS: Thyroid Stimulating Hormone 3.08 uIU/mL (0.465-4.68)
[2025-01-07 14:04] LABS: Bilirubin,Direct 0.2 mg/dl (0.0-0.4)
== END 2025-01-07 23:59 | disposition home or self-care (01) ==
PROVIDERS: PCP Nurse Practitioner; Visit Provider Nurse Practitioner Family
DX: I20.9 Angina pectoris, unspecified (principal); R06.00 Dyspnea, unspecified
CPT/HCPCS: 36415; 80048; 80061; 80076; 83735; 83880; 84439; 84443; 85025

== ENCOUNTER 2025-01-14 14:54 | Outpatient (CLI) | payer MEDICARE, SELFPAY ==
[2025-01-14 16:51] LABS: Ferritin 19.5 ng/ml (11.1-264)
[2025-01-14 18:07] LABS: Iron 24 ug/dL (37-170)
[2025-01-14 18:16] LABS: Total Iron Binding Capacity 426 ug/dL (265-497)
== END 2025-01-14 23:59 | disposition home or self-care (01) ==
LOC: LAB 14:55
PROVIDERS: PCP Nurse Practitioner; Visit Provider Internal Medicine Medical Oncology
DX: D50.0 Iron deficiency anemia secondary to blood loss (chronic) (principal)
CPT/HCPCS: 36415; 82728; 83540; 83550

== ENCOUNTER 2025-01-17 08:23 | Day surgery (SDC) | payer MEDICARE, SELFPAY ==
--- NOTE | 2025-01-15 15:11 | SUR.PREOP ---
pt and her daughter called wanting information on procedure and what time to be here. instructions given and informed that cathlab staff would call tomorrow to give time on when to arrive morning of.
[2025-01-17] VITALS (15 sets, daily range): BP systolic 102–200; BP diastolic 48–104; PULSE 64–78; RESP 18; TEMP 36.6–36.9; O2SAT 93–100
--- NOTE | 2025-01-17 07:09 | IR_ITS ---
APPROVED REPORT Patient Location: Outpatient PROCEDURES Right heart catheterization Left heart catheterization Left ventriculogram Selective coronary angiogram INDICATION Abnormal Myoview, Congestive heart failure, Pulmonary hypertension, Angina pectoris, Informed consent was obtained prior to the procedure. COMPLICATIONS NONE Estimated Blood Loss: LESS THAN 10 ML TECHNIQUE One percent lidocaine used to anesthetize the right anterior aspect of the wrist. The right radial artery was accessed via the Seldinger technique. A 6 Vincentian sheath was placed in the right radial artery. 2.5 mg of Verapamil, 800 mcg of nitroglycerin, 1mg Lidocaine and 5000 U Heparin were given through the arterial sheath. The JL3 catheter was also used to perform left heart catheterization, left ventriculogram and selective coronary angiogram. At the end of the procedure the sheath was removed good hemostasis was achieved using Traclet band, patient was transferred to the postop holding area in stable condition. One percent lidocaine was used to anesthetize the right anterior aspect of the right wrist. The right radial artery was accessed via the Seldinger technique and a 6 Vincentian hydrophilic sheath was placed in the right radial artery. Following this one percent lidocaine was used to anesthetize the right anterior aspect of the right neck. The right internal jugular vein was accessed via the Seldinger technique and a 7 Vincentian sheath was placed in the right internal jugular vein. Following this an arterial cocktail was administered using 5000U heparin, 2.5 mg verapamil, 1mg Lidocaine and 800mcg nitroglycerin into the right radial sheath. A JL3 catheter was used to perform left heart catheterization left ventriculogram and selective coronary angiography while a Mason-Debora catheter was used to perform right heart catheterization. Saturations were obtained in the pulmonary artery and right atrium. At the end of the procedure the arterial sheath was removed good hemostasis was achieved using Traclet band. Patient was transferred to the postop holding area in stable condition for venous sheath removal. ANGIOGRAPHIC RESULTS The left main artery Normal The left anterior descending artery Is proximally normal with mid vessel 10% luminal regularities The circumflex artery Large and codominant with a proximal eccentric 20% stenosis with the stent in the proximal to mid segment which is widely patent free of in-stent restenosis with excellent proximal distal transitioning The right coronary artery Large and codominant with proximal and mid vessel diffuse eccentric 30% stenoses The MORALES ventriculogram reveals Hyperdynamic 75% The left ventricular end-diastolic pressure 25 mmHg Right atrial pressure 20 mmHg Pulmonary artery pressure 40/30 mmHg Pulmonary artery occlusion pressure 25 mmHg Right atrial saturation 63% Pulmonary artery saturation 62% Hemoglobin 8.5 Aortic saturation 100% Cardiac output 4.7 L/min IMPRESSION Coronary disease as described above all of which is nonflow limiting Hyperdynamic ventricle Increased biventricular filling pressures PLAN 1. Medical management for coronary disease 2. Patient likely has hypertensive heart disease. Her blood pressure was 220/110 during cardiac catheterization therefore recommend better medical management regarding blood pressure 3. LDL less than 55 to be to the 10 intensity statin 4. Increased diuretics 5. Risk factor modification Electronically signed by : Missael Ratliff MD 01/17/2025 12:17:08
[2025-01-17 09:01] LABS: Basophils % 0.4 % (0.1-2.0); Eosinophils # 0.2 Kmm3 (0.0-0.4); Eosinophils % 2.3 % (0.1-12.0); Hematocrit 28.4 % (37.0-47.0); Hemoglobin 8.5 g/dL (12.2-16.2); Immature Granulocytes # 0.02 10^3uL; Immature Granulocytes % 0.3 %; Lymphocytes # 1.8 K/mm3 (0.7-4.5); Mean Corpuscular HGB Conc 29.9 g/dL (31.8-35.4); Mean Corpuscular Hemoglobin 22.4 pg (27.0-31.2); Mean Corpuscular Volume 74.7 fl (81-99); Mean Platelet Volume 9.6 fl (7.4-10.4); Monocytes # 0.6 K/mm3 (0.1-1.0); Neutrophils # 4.2 K/mm3 (1.8-7.8); Nucleated Red Blood Cells # 0 10^3/uL; Nucleated Red Blood Cells % 0 %; Platelet Count 291 K/mm3 (142-424); Red Cell Distribution Width 21.1 % (11.5-17.5); Red Cell Distribution Width-SD 56.6 fL; White Blood Count 6.8 K/mm3 (4.8-10.8)
[2025-01-17 09:04] LABS: Chloride 108 mmol/L (98-107); Potassium 3.5 mmoL/L (3.5-5.1); Sodium 141 mmol/L (136-145)
[2025-01-17 09:07] LABS: Anion Gap 7.5 mEq/L (5-15); Blood Urea Nitrogen 20 mg/dl (7-17); Calcium 8.3 mg/dl (8.4-10.2); Carbon Dioxide 29 mmol/L (22.0-30.0); Creatinine Clearance Estimated 37 mL/min (50-200); Estimated Glomerular Filt Rate 61 ml/min (>60); GFR (African American) 74 ML/MIN (>60); Glucose 112 mg/dl (74-100)
[2025-01-17] MEDS: HEPARIN 1,000 UNITS/ML 10ML VIAL (CATH LAB) 5000 UNIT IV (10:33)
[2025-01-17] MEDS: 0.9 % SODIUM CHLORIDE 500 ML 25 ML IV (10:33)
[2025-01-17] MEDS: VERAPAMIL 2.5MG/ML 2ML VIAL 2.5 MG IV (10:33)
[2025-01-17] MEDS: diphenhydrAMINE 50MG/ML VIAL 50 MG IV (10:33)
[2025-01-17] MEDS: LIDOCAINE 1% 10ML MDV 10 ML IJ (10:33)
[2025-01-17] MEDS: HEPARIN 1,000 UNITS/500ML NS (CATH LAB) 3000 UNIT IV (10:33)
[2025-01-17] MEDS: NITROGLYCERIN 800MCG/8ML SYR (CATH LAB) 800 MCG IA (10:34)
[2025-01-17] MEDS: MIDAZOLAM HCL 1MG/ML 5ML VIAL 1 MG IV (10:37)
[2025-01-17] MEDS: LABETALOL 20MG/4ML SYRINGE 20 MG IV (10:37)
[2025-01-17] MEDS: FENTANYL 100MCG/2ML VIAL 50 MCG IV (10:45)
[2025-01-17] MEDS: IOPAMIDOL-370 (76%);100ML BOTTLE 40 ML IV (14:31)
[2025-01-17 14:35] LABS: CATHL Arterial O2 SAT 62.6 % (90-100); CATHL Venous O2 SAT 63.1 % (75-80)
== END 2025-01-17 14:15 | disposition home or self-care (01) ==
LOC: CATHLAB 08:24
PROVIDERS: PCP Nurse Practitioner; Visit Provider Internal Medicine
PROC: 4A023N7 Measurement of Cardiac Sampling and Pressure, Left Heart, Percutaneous Approach (ICD-10-PCS; CPT 93452; principal; 2025-01-17 08:45)
PROC: 4A023N6 Measurement of Cardiac Sampling and Pressure, Right Heart, Percutaneous Approach (ICD-10-PCS; CPT 93451; 2025-01-17 08:45)
DX: I25.118 Atherosclerotic heart disease of native coronary artery with other forms of angina pectoris (principal); I50.33 Acute on chronic diastolic (congestive) heart failure; I11.0 Hypertensive heart disease with heart failure; J44.9 Chronic obstructive pulmonary disease, unspecified; J96.11 Chronic respiratory failure with hypoxia; Z99.81 Dependence on supplemental oxygen; E78.5 Hyperlipidemia, unspecified; I27.20 Pulmonary hypertension, unspecified; Z95.5 Presence of coronary angioplasty implant and graft; Z87.891 Personal history of nicotine dependence; Z82.3 Family history of stroke; Z79.02 Long term (current) use of antithrombotics/antiplatelets; Z79.899 Other long term (current) drug therapy
CPT/HCPCS: 93460; 80048; 82810; 85025; 99152; C1725; C1769; C1894; J1200; J1644; J1920; J3010; J7040; Q9967

== ENCOUNTER 2025-02-02 09:55 | Inpatient (IN) | payer MEDICARE, SELFPAY ==
[2025-02-02] VITALS (78 sets, daily range): BP systolic 107–210; BP diastolic 47–114; PULSE 61–106; RESP 12–28; TEMP 36.6–37.2; O2SAT 93–100; BMI 20.7
--- NOTE | 2025-02-02 09:56 | CT_ITS ---
PROCEDURE INFORMATION: Exam: CTA Chest With Contrast Exam date and time: 02/02/2025 10:33 AM Age: 74 years old Clinical indication: Shortness of breath; Additional info: SOB cp TECHNIQUE: Imaging protocol: Computed tomographic angiography of the chest with contrast. Exam focused on the arteries. 3D rendering (Not supervised by radiologist): MIP and/or 3D reconstructed images were created by the technologist. Radiation optimization: All CT scans at this facility use at least one of these dose optimization techniques: automated exposure control; mA and/or kV adjustment per patient size (includes targeted exams where dose is matched to clinical indication); or iterative reconstruction. Contrast material: ISOVUE; Contrast volume: 70 ml; Contrast route: INTRAVENOUS (IV); COMPARISON: CT CHEST WO CON 12/31/2023 8:30 PM FINDINGS: Pulmonary arteries: Negative for acute pulmonary embolism. Aorta: Unremarkable. No aortic aneurysm. No aortic dissection. Thyroid: Large cystic foci in the thyroid gland, larger on the right. New since previous, consider nonemergent ultrasound. Lungs: Bronchial wall thickening in both lower lobes, left worse than right. Concerning for bronchitis. Mild atelectasis in the lingula. Small pulmonary nodules bilaterally, new since previous. Largest on the left in the peripheral upper lobe measures 4 mm (series 7, image 64) and largest on the right in the lower lobe measures 4 mm (series 7, image 92). Pleural spaces: Tiny pleural effusions bilaterally. Heart: Unremarkable. No cardiomegaly. No pericardial effusion. Lymph nodes: Unremarkable. No enlarged lymph nodes. Bones/joints: Unremarkable. No acute fracture. Soft tissues: Unremarkable. Other findings: Stable emphysema. IMPRESSION: 1. Negative for acute pulmonary embolism. 2. Large cystic foci in the thyroid gland, larger on the right. New since previous, consider nonemergent ultrasound. 3. Bronchial wall thickening in both lower lobes, left worse than right. Concerning for bronchitis. 4. Sub 5 mm pulmonary nodules, new since previous. May be infectious or inflammatory in etiology, recommend follow-up as indicated. 5. Tiny pleural effusions bilaterally. F[employer]CHNER CRITERIA FOR MANAGEMENT OF PULMONARY NODULES Low Risk Patients: <6mm, no follow-up 6-8mm, 6-12 month follow-up >8mm, CT @ 3, months, PET/CT or biopsy High Risk Patients: <6mm, follow-up 12 months 6-8mm, 6-12 month then 18-24 month follow-up >8mm, same as for low risk References: Cash Ireland, et al. Guidelines for Management of Incidental Pulmonary Nodules Detected on CT Images: From the Fleischner Society 2017. Radiology. 2017;284(1):228-243.
--- NOTE | 2025-02-02 09:59 | ECG_ITS ---
APPROVED REPORT Exam: Resting ECG HR:71 bpm ECG Measurements Heart Rate 71 AXES [place] 117 P 82 QRSd 86 QRS 78 QT 374 T 76 QTc 397 Conclusion SINUS RHYTHM WITH SHORT [place] INTERVAL BORDERLINE ECG Electronically signed by : JEFFREY GONSALEZ, 02/03/2025 06:57:40
--- NOTE | 2025-02-02 09:59 | [facility].EDCP ---
Discharge Plan Disposition Patient Disposition: Admitted Prescriptions Prescriptions: No Action Jerad Ellipta 100-62.5-25 mcg blister with device 1 inh inhalation DAILY 90 Days Qty: 60 3RF ipratropium-albuterol 0.5 mg-3 mg(2.5 mg base)/3 mL solution for nebulization 3 ml inhalation QID PRN (Reason: shortness of breath or wheezing) 90 Days Qty: 270 3RF albuterol sulfate 90 mcg/actuation HFA aerosol inhaler 2 inh inhalation QID PRN (Reason: shortness of breath or wheezing) 90 Days Qty: 8.5 2RF cyanocobalamin (vitamin B-12) 1,000 mcg tablet 1,000 mcg PO DAILY Patient Comments: TAKE ONE (1) TABLET EVERY DAY BY ORAL ROUTE DIRECTED FOR 30 DAYS. tizanidine 4 mg tablet 4 mg PO TID Patient Comments: TAKE 1 TABLET BY MOUTH THREE TIMES DAILY meloxicam 15 mg tablet 15 mg PO DAILY Patient Comments: TAKE 1 TABLET BY MOUTH ONCE DAILY FOR 90 DAYS montelukast 10 mg tablet 10 mg PO DAILY Patient Comments: TAKE 1 TABLET BY MOUTH ONCE DAILY FOR 90 DAYS isosorbide mononitrate 60 mg tablet extended release 24 hr 60 mg PO DAILY Qty: 30 3RF rivastigmine 4.6 mg/24 hour patch 24 hour 4.6 mg transdermal DAILY carvedilol 25 mg Tablet 25 mg PO BID 30 Days Qty: 60 3RF Rx Instructions: must administer with a meal/food furosemide 40 mg Tablet 40 mg PO DAILY 30 Days Qty: 30 3RF atorvastatin 40 mg tablet 40 mg PO HS bupropion HCl 150 mg tablet sustained-release 12 hr 150 mg PO BID sertraline 100 mg tablet 200 mg PO DAILY clopidogrel 75 mg tablet 75 mg PO DAILY folic acid 1 mg Tablet 1 mg PO DAILY Referrals Follow up/Referrals: Provider,Moris Rayo [Primary Care Provider, Medical] - See instructions Clinical Impressions Clinical Impression: Acute exacerbation of CHF (congestive heart failure), Chronic bronchitis, Anemia, Acidosis Print Language Print Language: Setswana Discharge ED Provider: Kevin Fabian HPI General Chief Complaint: Chest Pain Stated Complaint: SOA Time Seen by Provider: 02/02/25 09:55 History of Present Illness HPI narrative: Patient is 74-year-old female past medical history of COPD on 3 L nasal cannula at baseline, heart failure with preserved ejection fraction on Lasix 40 mg daily who presents to the emergency department for evaluation of shortness of breath. Onset was acute over the last few days with associated anterior sternal chest pain. No reports of it radiating through to the back. No abdominal pain reported. She has been compliant with her medications however breathing treatment has been unsatisfactory in resolving her symptoms causing her to call 911 for continued evaluation. Upon arrival EMS placed her on 5 L nasal cannula for acceptable oxygen saturations greater than 90%. Albuterol was administered at the scene as well as aspirin, nitroglycerin, 125 mg of methylprednisolone. Patient presents here for continued shortness of breath and chest pain 7 out of 10 on my evaluation. No other acute complaints at this time. Patient does not smoke any longer. Please note that above description of symptoms, in this electronic medical record under categorization of recalled from ER triage doctor by RN are reflective of an initial nursing assessment, however, is not reflective of my full history and physical exam that was personally taken and clarified. Consequentially, this preceding description of symptoms, which may include the patient's categorized chief complaint in the EMR, do not reflect my personal clinical impression, and the ultimate description of history of present illness and patient stated complaints should be deferred to this section of the note. Unless stated otherwise or congruent with this section of the note, additional signs, symptoms, or incongruence should be interpreted as inaccurate with my clinical impression. Related Data Home Medications ?Medication ?Instructions ?Recorded ?Confirmed atorvastatin 40 mg tablet 40 mg PO HS 12/31/23 01/17/25 bupropion HCl 150 mg tablet,12 hr 150 mg PO BID 12/31/23 01/17/25 sustained-release clopidogrel 75 mg tablet 75 mg PO DAILY 12/31/23 01/17/25 sertraline 100 mg tablet 200 mg PO DAILY 12/31/23 01/17/25 folic acid 1 mg tablet 1 mg PO DAILY 01/01/24 01/17/25 rivastigmine 4.6 mg/24 hour 4.6 mg transdermal DAILY 03/24/24 01/17/25 transdermal patch cyanocobalamin (vitamin B-12) 1,000 mcg PO DAILY 04/02/24 01/17/25 1,000 mcg tablet meloxicam 15 mg tablet 15 mg PO DAILY 01/07/25 01/17/25 montelukast 10 mg tablet 10 mg PO DAILY 01/07/25 01/17/25 tizanidine 4 mg tablet 4 mg PO TID 01/07/25 01/17/25 Previous Rx's ?Medication ?Instructions ?Recorded albuterol sulfate 90 mcg/actuation 2 inh inhalation QID PRN shortness 04/02/24 aerosol inhaler of breath or wheezing 90 days #8.5 grams fluticasone fur. 100 mcg-umeclid 1 inh inhalation DAILY 90 days #60 04/02/24 62.5 mcg-vilant 25 mcg ea inhalat.powder (Trelegy Ellipta) ipratropium 0.5 mg-albuterol 3 mg 3 ml inhalation QID PRN shortness 04/02/24 (2.5 mg base)/3 mL nebulization of breath or wheezing 90 days #270 soln mL isosorbide mononitrate 60 mg 60 mg PO DAILY #30 tabs 01/07/25 tablet,extended release 24 hr carvedilol 25 mg tablet 25 mg PO BID 30 days #60 tabs 01/17/25 furosemide 40 mg tablet 40 mg PO DAILY 30 days #30 tabs 01/17/25 Allergies Allergy/AdvReac Type Severity Reaction Status Date / Time No Known Allergies Allergy Verified 01/14/25 14:07 [facility] Disclaimer: The information contained in this section may have been updated after the patient was seen, as this information can be updated by other users. Medical History Other forms of dyspnea Pulmonary hypertension Hyperlipidemia Hypertension Dyspnea Atypical angina Chronic respiratory failure with hypoxia Encounter for screening for malignant neoplasm of lung Smoking greater than 30 pack years Pulmonary emphysema COPD exacerbation BMI less than 19,adult (HFpEF) heart failure with preserved ejection fraction Tobacco dependence Dependence on supplemental oxygen Coronary artery disease Iron deficiency anemia COPD (chronic obstructive pulmonary disease) Surgical History Hx of esophagogastroduodenoscopy History of colonoscopy History of hysterectomy History of heart artery stent S/P cardiac catheterization Family History Father Alzheimer disease Mother Stroke Social History Smoking Status: Former smoker tobacco type: cigarettes packs per day: 1 years smoked: 60 smoking status stop date: 3 years ago alcohol intake: former current occupational status: other Travel in the last 8 weeks?: None Have you lived/traveled outside [place] in past 30 days?: No Contact w/someone who lives/traveled outside [place] past 30 days?: No Exposure to someone with infectious disease in past 14 days?: No Do you have a fever (greater than 100.4 F or 38 C)?: No Have you tested positive for COVID-19?: No Exposed to someone with COVID-19 in past 14 days?: No Do you have a sore throat?: No Do you have a cough?: No Do you have any weakness?: No Do you have any diarrhea?: No Are you experiencing any unusual bleeding?: No Do you have any muscle aches/pain?: No Do you have any abdominal pain?: No Are you experiencing loss of taste or smell?: No Other Medical History Have you received the Flu Vaccine for this season: No Have you received the Pneumonia Vaccine: No ROS Obtained: Yes Systems reviewed as appropriate & no additional complaints except as documented Physical Exam General General appearance: alert and in no apparent distress Head Head exam: atraumatic and normocephalic Eye Eye exam: Present PERRL and EOMI ENT ENT exam: Present mucous membranes moist Neck Neck exam: Present normal inspection Chest Chest inspection: Present normal inspection and symmetric chest wall rise Respiratory Respiratory exam: Present respiratory distress, wheezes, accessory muscle use and prolonged expiratory phase Cardiovascular Cardiovascular exam: Present regular rate and normal rhythm Abdominal Exam Abdominal exam: Present soft; Absent tenderness Extremities Exam Extremities exam: Present normal inspection; Absent edema Neurological Exam Neurological exam: Present alert Psychiatric Psychiatric exam: Present normal affect Skin Skin exam: Present warm and dry HEART Score HEART Score HEART Score assessment performed?: Yes History (anamnesis): Moderately suspicious ECG: Normal Age: >65 years Risk factors: Atherosclerosis history Troponin: </= normal limit HEART Score: 5 Critical Care Critical Care Time Critical Care Time: Yes Attestation: On 02/02/25, the high probability of a clinically significant, sudden or life threatening deterioration of the following system(s) required my full and direct attention, intervention and personal management. The time I documented below is in addition to time spent performing reported procedures but includes the following listed in this critical care notation. Total Time Total Critical Care Time: 45 Medical Decision Making Vasquez Inquiry Pt receiving controlled substance: No Vital Signs Vital Signs: 02/02/25 09:57 02/02/25 09:58 02/02/25 10:00 Temperature 98.6 F Temperature Source Axillary Pulse Rate 72 71 Pulse Rate [Left] 75 Respiratory Rate 20 Blood Pressure 165/77 H 178/80 H Blood Pressure [Right Arm] 165/77 H Blood Pressure Mean [Right Arm] 106 Blood Pressure Source [Right Arm] Automatic Cuff 02 Sat by Pulse Oximetry 99 97 99 Oxygen Delivery Method Nasal Cannula Nasal Cannula Nasal Cannula Oxygen Flow Rate (LPM) 5 5 5 02/02/25 10:12 02/02/25 10:40 02/02/25 11:01 Temperature Temperature Source Pulse Rate 67 66 70 Pulse Rate [Left] Respiratory Rate 18 19 Blood Pressure 176/86 H 207/102 H Blood Pressure [Right Arm] Blood Pressure Mean [Right Arm] Blood Pressure Source [Right Arm] 02 Sat by Pulse Oximetry 99 98 Oxygen Delivery Method Room Air CPAP Oxygen Flow Rate (LPM) 02/02/25 11:05 02/02/25 11:30 02/02/25 11:34 Temperature Temperature Source Pulse Rate 81 74 71 Pulse Rate [Left] Respiratory Rate 18 12 18 Blood Pressure 201/97 H 147/79 H 153/86 H Blood Pressure [Right Arm] Blood Pressure Mean [Right Arm] Blood Pressure Source [Right Arm] 02 Sat by Pulse Oximetry 99 97 97 Oxygen Delivery Method CPAP Room Air Room Air Oxygen Flow Rate (LPM) 02/02/25 11:35 Temperature Temperature Source Pulse Rate 71 Pulse Rate [Left] Respiratory Rate 13 Blood Pressure 168/77 H Blood Pressure [Right Arm] Blood Pressure Mean [Right Arm] Blood Pressure Source [Right Arm] 02 Sat by Pulse Oximetry 96 Oxygen Delivery Method Room Air Oxygen Flow Rate (LPM) Lab Data Labs: Lab Results 02/02/25 10:00: WBC 7.9, RBC 3.39 L, Hgb 7.2 L, Hct 26.1 L, MCV 77.0 L, MCH 21.2 L, MCHC 27.6 L, RDW 19.3 H, Plt Count 277, MPV 10.5 H, Neut % (Auto) 62.6, Lymph % (Auto) 25.1, [place] % (Auto) 9.5 H, Eos % (Auto) 2.2, Baso % (Auto) 0.3, Neut # (Auto) 4.9, Lymph # (Auto) 2.0, [place] # (Auto) 0.8, Eos # (Auto) 0.2, Baso # (Auto) 0.0, Sodium 141, Potassium 3.7, Chloride 104, Carbon Dioxide 29, Anion Gap 11.7, BUN 18 H, Creatinine 0.90, Estimated Creat Clear 38, Estimated GFR 61, Est GFR ( Amer) 74, Glucose 113 H, Calcium 8.2 L, Total Bilirubin 0.2, AST 22, ALT 10 L, Alkaline Phosphatase 129 H, Troponin I < 0.01, NT-Pro-B Natriuret Pep 2050 H, Total Protein 6.4, Albumin 3.8, Globulin 2.6, Albumin/Globulin Ratio 1.5, HIV Ag/Ab Combo Qual Negative 02/02/25 10:04: Chlamy pneumoniae PCR Not detected, Adenovirus (PCR) Not detected, B. pertussis DNA (PCR) Not detected, Coronavirus OC43 (PCR) Not detected, Coronavirus HKU1 (PCR) Not detected, Coronavirus 229E (PCR) Not detected, SARS-CoV-2 (PCR) Not detected, Coronavirus NL63 (PCR) Not detected, Human Metapneumovir PCR Not detected, Influenza A (H1) PCR Not detected, Influ A (H1N1/09) PCR Not detected, Influenza A (H3) PCR Not detected, Influenza Type A (PCR) Not detected, Influenza Type B (PCR) Not detected, M. pneumoniae (PCR) Not detected, Parainfluenza 1 (PCR) Not detected, Parainfluenza 2 (PCR) Not detected, Parainfluenza 3 (PCR) Not detected, Parainfluenza 4 (PCR) Not detected, RSV (PCR) Not detected, Entero/Rhino (PCR) Not detected 02/02/25 10:07: VBG pH 7.27 L, VBG pCO2 46.4, VBG pO2 72.7 H, VBG HCO3 20.9 L, VBG Total CO2 22.3 L, VBG O2 Saturation 92.8 H, VBG Base Excess -5.9 L, VBG Lactic Acid 0.8 02/02/25 11:13: VBG pH 7.31, VBG pCO2 50.4, VBG pO2 30.9, VBG HCO3 24.6, VBG Total CO2 26.2, VBG O2 Saturation 57.0, VBG Base Excess -1.7, VBG Lactic Acid 1.1 02/02/25 10:00 02/02/25 10:00 Response Orders (Tests/Meds): ED MEDICATIONS Generic Name Dose Route Start Last Admin Trade Name Joseq PRN Reason Stop Dose Admin Nitroglycerin/Dextrose 250 mls @ 1.5 mls/hr 02/02/25 11:15 02/02/25 11:25 Nitroglycerin 50mg/250ml D5w IV 03/04/25 11:14 5 mcg/min .Q24H GRACIE 1.5 mls/hr Protocol Administration 5 MCG/MIN Sodium Chloride 10 ml 02/02/25 10:39 02/02/25 10:40 Sodium Chloride 0.9% 10ml Syr (Rad Only) IV 03/04/25 10:38 10 ml NEEDED PRN Administration Maintain IV Site Discontinued Medications Generic Name Dose Route Start Last Admin Trade Name Quan PRN Reason Stop Dose Admin Albuterol/Ipratropium 9 ml 02/02/25 09:56 02/02/25 10:07 Ipratropium/Albuterol 3 Ml Neb IH 02/02/25 09:57 9 ml ONCE ONE Administration Furosemide 80 mg 02/02/25 10:37 02/02/25 10:50 Furosemide 40mg/4ml Vial IV 02/02/25 10:38 80 mg ONCE ONE Administration Magnesium Sulfate 2 gm in 50 mls @ 50 mls/hr 02/02/25 09:56 02/02/25 10:06 Magnesium Sulfate 2gm/50ml Premix IV 02/02/25 10:55 50 mls/hr ONCE ONE Administration Azithromycin 500 mg/ Sodium 250 mls @ 250 mls/hr 02/02/25 10:38 02/02/25 10:59 Chloride IV 02/02/25 10:39 250 mls/hr ONCE ONE Administration Iopamidol 70 ml 02/02/25 10:39 02/02/25 10:40 Iopamidol-370 (76%);100ml Bottle IV 02/02/25 10:40 70 ml ONCE ONE Administration Nitroglycerin 0.4 mg 02/02/25 11:14 02/02/25 11:15 Nitroglycerin 0.4mg Sl Tablet SL 02/02/25 11:15 0.4 mg ONCE ONE Administration Sodium Chloride 50 ml 02/02/25 10:39 02/02/25 10:40 0.9 % Sodium Chloride 50 Ml Vial IV 02/02/25 10:40 50 ml ONCE ONE Administration ORDERS Category Date Time Status CT angio chest PE protocol Stat Cat Scan 02/02/25 09:56 Completed BNP [NT Pro Brain Natriuretic Pep.] Stat Lab 02/02/25 10:00 Completed CBC w/Auto Diff [Complete Blood Count Auto Diff] Stat Lab 02/02/25 10:00 Completed CMP [Comprehensive Metabolic Panel] Stat Lab 02/02/25 10:00 Completed Full Resp Panel w/COVID ([facility]) Routine Lab 02/02/25 10:04 Completed HIV Combo Stat Lab 02/02/25 10:00 Completed Hepatitis C Ab Qual. W/ RFX Stat Lab 02/02/25 10:00 Received Trop I [Troponin I] Stat Lab 02/02/25 10:00 Completed Troponin I Q3H Lab 02/02/25 13:00 Ordered Troponin I Q3H Lab 02/02/25 16:00 Ordered VBG [Venous Blood Gas] Stat RT 02/02/25 10:07 Completed VBG [Venous Blood Gas] Stat RT 02/02/25 11:13 Completed ECG Data Tracing #1: ECG Narrative: Independently interpretted by me rate is 71, rhythm is regular, axis is normal, no ST elevation in anatomical contiguous leads, QTc 397. MDM Narrative Medical Decision Narrative: In summary patient is 74-year-old female past medical history described above who presents emergency department for evaluation of shortness of breath and chest pain. Patient is hemodynamically stable nontoxic-appearing upon arrival, afebrile, appearing in significant respiratory distress with decreased air movement and wheezes in all lung curiel bilaterally. Patient was placed on 5 L nasal cannula to continue oxygen saturation maintenance greater than 90%. [id number] ultrasound at bedside shows largely preserved ejection fraction, diffuse B-lines in bilateral lung curiel. Differential includes multifocal pneumonia versus heart failure. The wheezing may also be referred presented of cardiac wheeze versus COPD exacerbation or both. Workup in totality will be conducted with hematologic labs emergent CT angio of the chest pulmonary embolism protocol, EKG, serial troponins. Initial inventions include DuoNebs x 3, IV magnesium. Solu-Medrol will be deferred given that was given prehospital. VBG will be obtained. Patient will be placed on BiPAP. Diuresis will be considered after initial workup is obtained to make a more informed decision. Initial workup reviewed by me, hematologic labs remarkable for anemia 7.2 for which per chart review of hematology oncology notes she has iron deficiency anemia may have a component of anemia of chronic disease. Acid-base status she has pH 7.27 with a normal CO2 and normal lactate. I suspect there may be some degree of malperfusion given her anemia and what I suspect is heart failure given her B-lines in all her lung curiel. No ENRICO or critical electrolyte abnormality. Initial troponin undetectably low. At this point given that CHF exacerbation is my leading diagnosis will give 80 mg of IV Lasix. Will also add azithromycin for atypical coverage after reviewed patient's CT informally she does appear to have some nodules but no dense lobar opacities and has very mild posterior layering effusions. CPAP was increased from 8 to 12 to increase squeeze of edema off of the lungs but was poorly tolerated and there may have been some degree of hyperdynamic inflation due to elevated tidal volumes for her weight. Was reverted back to 8 and then patient was subsequently requesting removal which is reasonable and therefore it was removed. Patient was maintaining oxygen saturation on 5 L nasal cannula and did have some improved respiratory effort. Patient's blood pressure was uptrending with systolic of 200 with persistent shortness of breath will begin nitroglycerin drip with a systolic goal of approximately 150 to lower by 25% afterload reduction. CT imaging remarkable for cystic foci on the thyroid gland recommend nonemergent ultrasound bronchial wall thickening concerning for bronchitis with subpleural pulmonary nodules and tiny pleural effusions. Case was discussed with hospital medicine regarding management patient be admitted to their service for continued evaluation at this time. Procedure: Procedure form was cardiac ultrasound procedure formed by Kevin Fabian using the phased array probe parasternal long and parasternal short axis were obtained as well as limited lung views. Grossly normal ejection fraction no large pericardial effusion diffuse B-lines in bilateral lung curiel. Patient tolerated procedure well there were no immediate complications images were technically adequate and did necessitate further imaging.
[2025-02-02 10:06] LABS: Hematocrit 26.1 % (37.0-47.0); Hemoglobin 7.2 g/dL (12.2-16.2); Immature Granulocytes % 0.3 %; Mean Corpuscular HGB Conc 27.6 g/dL (31.8-35.4); Mean Corpuscular Hemoglobin 21.2 pg (27.0-31.2); Mean Corpuscular Volume 77.0 fl (81-99); Nucleated Red Blood Cells % 0 %; Platelet Count 277 K/mm3 (142-424); Red Blood Count 3.39 M/mm3 (4.20-5.40); Red Cell Distribution Width-SD 54.2 fL; White Blood Count 7.9 K/mm3 (4.8-10.8)
[2025-02-02] MEDS: MAGNESIUM SULFATE IN WATER 2 GM/50 ML PIGGYBACK IV (10:06)
[2025-02-02 10:07] LABS: Adenovirus,PCR Not Detected (NotDetected); Chlamydophila Pneumoniae, PCR Not Detected (NotDetected); Coronavirus 19, PCR Not Detected (NotDetected); Coronovirus HKU1,PCR Not Detected (NotDetected); Influenza A, PCR Not Detected (NotDetected); Influenza AH1, 2009 Not Detected (NotDetected); Influenza AH1, PCR Not Detected (NotDetected); Influenza AH3,PCR Not Detected (NotDetected); Influenza B, PCR Not Detected (NotDetected); Mycoplasma Pneumoniae, PCR Not Detected (NotDetected); Parainfluenza 1, PCR Not Detected (NotDetected); Parainfluenza 2, PCR Not Detected (NotDetected); Parainfluenza 3, PCR Not Detected (NotDetected); Parainfluenza 4, PCR Not Detected (NotDetected)
[2025-02-02] MEDS: IPRATROPIUM/ALBUTEROL 3 ML NEB 9 ML IH (10:07)
--- NOTE | 2025-02-02 10:10 | PC.NURSE ---
warm blanket provided to pt
[2025-02-02 10:17] LABS: Lactate Venous 0.8 mmol/L (0.4-2.0); VBG HCO3 20.9 mmol/L (23-30); VBG PCO2 46.4 mmol/L (35-51); VBG PH 7.27 mmol/L (7.31-7.41); VBG PO2 72.7 mmol/L (28-40)
[2025-02-02 10:18] LABS: Albumin Level 3.8 g/dl (3.5-5.0); Chloride 104 mmol/L (98-107); Potassium 3.7 mmoL/L (3.5-5.1); Sodium 141 mmol/L (136-145)
[2025-02-02 10:20] LABS: Blood Urea Nitrogen 18 mg/dl (7-17); Creatinine Clearance Estimated 38 mL/min (50-200); Creatinine,Serum 0.90 mg/dl (0.52-1.04); Estimated Glomerular Filt Rate 61 ml/min (>60); GFR (African American) 74 ML/MIN (>60)
[2025-02-02 10:21] LABS: Alanine Aminotransferase 10 U/L (12-78); Albumin/Globulin Ratio 1.5 (1.1-1.8); Alkaline Phosphatase 129 U/L (38-126); Anion Gap 11.7 mEq/L (5-15); Aspartate Amino Transferase 22 U/L (14-36); Bilirubin,Total 0.2 mg/dl (0.2-1.3); Calcium 8.2 mg/dl (8.4-10.2); Carbon Dioxide 29 mmol/L (22.0-30.0); Globulin 2.6 g/dL (1.3-3.2); Glucose 113 mg/dl (74-100); Total Protein,Serum 6.4 g/dl (6.3-8.2)
--- OUTSIDE RECORDS SUMMARY | 2025-02-02 10:21 | XMS_ITS ---
Author Organization Unknown Medications Date Medication Dosage DosageUnit StartDate StopDate StopReason Active DoseQuantity DoseUnit Dispense DispenseUnit Refills NdcCode DrugCode PharmacyId IsPrescription MappedMedication Srcstatus 12/20 00:00 :00 Albuterol Sulfate HFA 108 (90 Base) MCG/ACT Aerosol Solution 08/09/2024 00:00:00 1 1 11 [id number] 4 287 P Taking 08/29 00:00 :00 Albuterol Sulfate HFA 108 (90 Base) MCG/ACT Aerosol Solution 08/09/2024 00:00:00 1 1 11 [id number] 4 287 P Refill 08/14 00:00 :00 Albuterol Sulfate HFA 108 (90 Base) MCG/ACT Aerosol Solution 08/09/2024 00:00:00 1 1 11 [id number] 4 287 P Refill 08/09 00:00 :00 Albuterol Sulfate HFA 108 (90 Base) MCG/ACT Aerosol Solution 08/09/2024 00:00:00 1 1 11 [id number] 4 287 P Start 12/20 00:00 :00 Atorvastati n Calcium 40 MG Tablet 1 90 0 000 10949 810 Taking 11/27 00:00 :00 Atorvastati n Calcium 40 MG Tablet 1 90 0 000 52836 810 Start 11/27 00:00 :00 Atorvastati n Calcium 40 MG Tablet 0 90 0 000 94020 810 Stop 08/09 00:00 :00 Atorvastati n Calcium 40 MG Tablet 1 90 0 000 89510 810 P Refill 08/09 00:00 :00 Atorvastati n Calcium 40 MG Tablet 1 000 23887 810 Taking 12/10 00:00 :00 buPROPion HCl 150 MG Tablet Extended Release [address] 08/09 00:00 :00 buPROPion HCl 150 MG Tablet Extended Release 1 180 0 P Re fill 08/09 00:00 :00 buPROPion HCl 150 MG Tablet Extended Release 1 Ta sung 12/20 00:00 :00 buPROPion HCl ER (SR) 150 MG Tablet Extended Release 12 Hour 1 180 Tablet 0 [id number] 505 Taking 12/10 00:00 :00 buPROPion HCl ER (SR) 150 MG Tablet Extended Release 12 Hour 1 180 Tablet 0 [id number] 505 Start 12/20 00:00 :00 Carvedilol 6.25 MG Tablet 1 90 0 0009 3013 501 Taking 11/27 00:00 :00 Carvedilol 6.25 MG Tablet 1 90 0 0009 3013 501 Start 11/27 00:00 :00 Carvedilol 6.25 MG Tablet 0 90 0 0009 3013 501 Stop 08/09 00:00 :00 Carvedilol 6.25 MG Tablet 1 90 0 0009 3013 501 P Refill 08/09 00:00 :00 Carvedilol 6.25 MG Tablet 1 0009 3013 501 Taking 12/20 00:00 :00 Clopidogrel Bisulfate 75 MG Tablet 1 90 0 009 43085 461 Taking 11/27 00:00 :00 Clopidogrel Bisulfate 75 MG Tablet 1 90 0 009 76491 461 Start 11/27 00:00 :00 Clopidogrel Bisulfate 75 MG Tablet 0 90 0 009 78441 461 Stop 08/09 00:00 :00 Clopidogrel Bisulfate 75 MG Tablet 1 90 0 009 42376 461 P Refill 08/09 00:00 :00 Clopidogrel Bisulfate 75 MG Tablet 1 009 27576 461 Taking 12/20 00:00 :00 Folic Acid 1 MG Tablet 1 90 0 [id number] 2 461 P Taking 08/09 00:00 :00 Folic Acid 1 MG Tablet 1 90 0 1337864 2 461 P Refill 08/09 00:00 :00 Folic Acid 1 MG Tablet 1 7257593 2 461 Taking 12/20 00:00 :00 Furosemide 40 MG Tablet 12/20/2024 00:00:00 1 10 Tablet 0 88570 429 925 P Start 12/20 00:00 :00 Furosemide 20 MG Tablet 1 90 0 106191 29 725 P Taking 08/09 00:00 :00 Furosemide 20 MG Tablet 1 90 0 615533 29 725 P Refill 08/09 00:00 :00 Furosemide 20 MG Tablet 1 314385 29 725 Taking 12/20 00:00 :00 HYDROcodone -Acetaminop hen 7.5-325 MG Tablet 08/14/2024 00:00:00 1 42 Tablet 0 14854 012 401 P Taking 08/14 00:00 :00 HYDROcodone -Acetaminop hen 7.5-325 MG Tablet 08/14/2024 00:00:00 1 42 Tablet 0 00144 012 401 P Start 08/14 00:00 :00 HYDROcodone -Acetaminop hen 7.5-325 MG Tablet 08/14/2024 00:00:00 1 42 Tablet 0 55363 012 401 P Refill 12/20 00:00 :00 Ipratropium -Albuterol 0.5-2.5 (3) MG/3ML Solution 08/09/2024 00:00:00 1 360 ML 3 [id number] 7 130 P Taking 08/29 00:00 :00 Ipratropium -Albuterol 0.5-2.5 (3) MG/3ML Solution 08/09/2024 00:00:00 1 360 ML 3 [id number] 7 130 P Refill 08/09 00:00 :00 Ipratropium -Albuterol 0.5-2.5 (3) MG/3ML Solution 08/09/2024 00:00:00 1 360 ML 3 [id number] 7 130 P Start 12/20 00:00 :00 Isosorbide Mononitrate ER 30 MG Tablet Extended Release 24 Hour 1 90 0 [id number] 961 Taking 11/27 00:00 :00 Isosorbide Mononitrate ER 30 MG Tablet Extended Release 24 Hour 1 90 0 [id number] 961 Start 11/27 00:00 :00 Isosorbide Mononitrate ER 30 MG Tablet Extended Release 24 Hour 0 90 0 [id number] 961 Stop 11/13 00:00 :00 Isosorbide Mononitrate ER 30 MG Tablet Extended Release 24 Hour 1 90 0 [id number] 961 Start 11/13 00:00 :00 Isosorbide Mononitrate ER 30 MG Tablet Extended Release 24 Hour 0 90 0 [id number] 961 Stop 08/09 00:00 :00 Isosorbide Mononitrate ER 30 MG Tablet Extended Release 24 Hour 1 90 0 [id number] 961 P Refill 08/09 00:00 :00 Isosorbide Mononitrate ER 30 MG Tablet Extended Release 24 Hour 1 [id number] 961 Taking 12/23 00:00 :00 Magnesium Oxide 400 MG Tablet 12/23/2024 00:00:00 1 5 Tablet 0 [id number] 20 922 P Start 12/20 00:00 :00 Meloxicam 15 MG Tablet 1 90 0 [id number] 2 501 Taking 11/27 00:00 :00 Meloxicam 15 MG Tablet 1 90 0 [id number] 2 501 Start 11/27 00:00 :00 Meloxicam 15 MG Tablet 0 90 0 [id number] 2 501 Stop 08/09 00:00 :00 Meloxicam 15 MG Tablet 1 90 0 [id number] 2 501 P Refill 08/09 00:00 :00 Meloxicam 15 MG Tablet 1 1221093 2 501 Taking 12/20 00:00 :00 Montelukast Sodium 10 MG Tablet 1 90 Tablet 0 29 547165 019 Taking 11/27 00:00 :00 Montelukast Sodium 10 MG Tablet 1 90 Tablet 0 29 261844 019 Start 11/27 00:00 :00 Montelukast Sodium 10 MG Tablet 0 90 Tablet 0 29 751460 019 Stop 11/13 00:00 :00 Montelukast Sodium 10 MG Tablet 1 90 Tablet 0 29 433529 019 Start 11/13 00:00 :00 Montelukast Sodium 10 MG Tablet 0 90 0 438393 80 806 Stop 08/09 00:00 :00 Montelukast Sodium 10 MG Tablet 1 90 0 764977 80 806 P Refill 08/09 00:00 :00 Montelukast Sodium 10 MG Tablet 1 048654 80 806 Taking 12/20 00:00 :00 Nitroglycer in 0.4 MG Tablet Sublingual 08/09/2024 00:00:00 1 90 5 [id number] 3 601 P Taking 12/20 00:00 :00 Nitroglycer in 0.4 MG Tablet Sublingual 0 405724 43 601 Not Taking 08/09 00:00 :00 Nitroglycer in 0.4 MG Tablet Sublingual 08/09/2024 00:00:00 1 90 5 [id number] 3 601 P Start 08/09 00:00 :00 Nitroglycer in 0.4 MG Tablet Sublingual 1 890149 43 601 Taking 12/20 00:00 :00 Potassium Chloride ER 20 MEQ Tablet Extended Release 12/20/2024 00:00:00 1 20 Tablet 0 25236 023 201 P Start 12/20 00:00 :00 Rivastigmin e 4.6 MG/24HR Patch 24 Hour 1 90 0 [id number] 016 P Taking 08/09 00:00 :00 Rivastigmin e 4.6 MG/24HR Patch 24 Hour 1 90 0 [id number] 016 P Refill 08/09 00:00 :00 Rivastigmin e 4.6 MG/24HR Patch 24 Hour 1 [id number] 016 Taking 12/20 00:00 :00 Sertraline HCl 100 MG Tablet 1 180 Tablet 0 [id number] 354 Taking 11/13 00:00 :00 Sertraline HCl 100 MG Tablet 1 180 Tablet 0 20942294 354 Start 11/13 00:00 :00 Sertraline HCl 100 MG Tablet 0 180 Tablet 0 [id number] 661 Stop 08/09 00:00 :00 Sertraline HCl 100 MG Tablet 1 180 Tablet 0 63953420 661 P Refill 08/09 00:00 :00 Sertraline HCl 100 MG Tablet 1 942750 92 661 Taking 12/20 00:00 :00 tiZANidine HCl 4 MG Tablet 1 270 Tablet 0 [id number] 861 P Taking 08/09 00:00 :00 tiZANidine HCl 4 MG Tablet 1 270 Tablet 0 [id number] 861 P Refill 08/09 00:00 :00 tiZANidine HCl 4 MG Tablet 1 1778550 1 861 Taking 12/20 00:00 :00 Trelegy Ellipta 100-62. 5-25 MCG/ACT Aerosol Powder Breath Activated 1 3 0 3882886 8 710 P Taking 08/09 00:00 :00 Trelegy Ellipta 100-62. 5-25 MCG/ACT Aerosol Powder Breath Activated 1 3 0 [id number] 8 710 P Refill 08/09 00:00 :00 Trelegy Ellipta 100-62. 5-25 MCG/ACT Aerosol Powder Breath Activated 1 [id number] 8 710 Taking 12/20 00:00 :00 Vitamin B12 1000 MCG Tablet Extended Release 1 90 0 [id number] 252 P Taking 08/09 00:00 :00 Vitamin B12 1000 MCG Tablet Extended Release 1 90 0 [id number] 252 P Refill 08/09 00:00 :00 Vitamin B12 1000 MCG Tablet Extended Release 1 [id number] 252 Taking 12/20 00:00 :00 Vitamin D (Ergocalcif kasey) 1.25 MG (33164 UT) Capsule 1 12 0 [id number] 701 P Taking 08/09 00:00 :00 Vitamin D (Ergocalcif kasey) 1.25 MG (97163 UT) Capsule 1 12 0 [id number] 701 P Refill 08/09 00:00 :00 Vitamin D (Ergocalcif kasey) 1.25 MG (83337 UT) Capsule 1 [id number] 701 Taking
[2025-02-02 10:30] LABS: NT Pro Brain Natriuretic Pep. 2050 pg/mL (0-450)
--- NOTE | 2025-02-02 10:32 | PC.NURSE ---
Pt in CT
--- NOTE | 2025-02-02 10:36 | PC.NURSE ---
Patient back from CT
[2025-02-02 10:38] LABS: Troponin I < 0.01 ng/ml (0.00-0.034)
[2025-02-02] MEDS: IOPAMIDOL-370 (76%);100ML BOTTLE 70 ML IV (10:40)
[2025-02-02] MEDS: 0.9 % SODIUM CHLORIDE 50 ML VIAL IV (10:40)
[2025-02-02] MEDS: SODIUM CHLORIDE 0.9% 10ML SYR (RAD ONLY) 10 ML IV (10:40)
[2025-02-02] MEDS: FUROSEMIDE 40MG/4ML VIAL 80 MG IV (10:50)
[2025-02-02] MEDS: AZITHROMYCIN 500 MG in 0.9 % SODIUM CHLORIDE 250 ML 250 MG IV (10:59)
[2025-02-02] MEDS: NITROGLYCERIN 0.4MG SL TABLET 0.4 MG SL (11:15)
[2025-02-02 11:22] LABS: Lactate Venous 1.1 mmol/L (0.4-2.0); VBG HCO3 24.6 mmol/L (23-30); VBG PH 7.31 mmol/L (7.31-7.41); VBG PO2 30.9 mmol/L (28-40)
[2025-02-02 11:25] LABS: VBG PCO2 50.4 mmol/L (35-51)
[2025-02-02] MEDS: NITROGLYCERIN IN 5 % DEXTROSE 250 ML 1.5 MG IV (11:25)
--- NOTE | 2025-02-02 11:35 | PC.NURSE ---
[facility] [phone]
[2025-02-02 11:43] LABS: Hepatitis C Ab Qual. W/ RFX NEGATIVE (Negative)
--- NOTE | 2025-02-02 12:13 | PC.NURSE ---
provided warm blanket and tv remote
--- NOTE | 2025-02-02 13:00 | EXP.HP ---
History of Present Illness *Admission Date: 02/02/25 *Reason for visit:: dyspnea, chest tightness *History of present illness: Ms. Santiago is a 74-year-old female with history of COPD on 3 L oxygen at baseline, HFpEF, hypertension, mood disorder. Presented to the ER with worsening dyspnea and shortness of breath over the past 2 to 3 days per her report. Has been having some chest tightness. Denies any nausea or vomiting. Initially placed on 5 L when EMS picked her up but O2 sats were only at 90%. On arrival to the ED, concern for possible hypercapnia versus respiratory distress. Was placed on BiPAP temporarily. Blood pressure severely elevated. Concern for acute HFpEF exacerbation and malignant hypertension. Medicine consulted for admission and further management. On my evaluation, patient cannot complete full sentences without having to take her breath. Appears in moderate distress. Sats improved however and on 5 L at this time. Diuresing well. Received Lasix in the ED. [facility] Disclaimer: The information contained in this section may have been updated after the patient was seen, as this information can be updated by other users. Medical History Other forms of dyspnea Pulmonary hypertension Hyperlipidemia Hypertension Dyspnea Atypical angina Chronic respiratory failure with hypoxia Encounter for screening for malignant neoplasm of lung Smoking greater than 30 pack years Pulmonary emphysema COPD exacerbation BMI less than 19,adult (HFpEF) heart failure with preserved ejection fraction Tobacco dependence Dependence on supplemental oxygen Coronary artery disease Iron deficiency anemia COPD (chronic obstructive pulmonary disease) Surgical History Hx of esophagogastroduodenoscopy History of colonoscopy History of hysterectomy History of heart artery stent S/P cardiac catheterization Family History Father Alzheimer disease Mother Stroke Social History Smoking Status: Former smoker tobacco type: cigarettes packs per day: 1 years smoked: 60 smoking status stop date: 3 years ago alcohol intake: former current occupational status: other Travel in the last 8 weeks?: None Have you lived/traveled outside [place] in past 30 days?: No Contact w/someone who lives/traveled outside [place] past 30 days?: No Exposure to someone with infectious disease in past 14 days?: No Do you have a fever (greater than 100.4 F or 38 C)?: No Have you tested positive for COVID-19?: No Exposed to someone with COVID-19 in past 14 days?: No Do you have a sore throat?: No Do you have a cough?: No Do you have any weakness?: No Do you have any diarrhea?: No Are you experiencing any unusual bleeding?: No Do you have any muscle aches/pain?: No Do you have any abdominal pain?: No Are you experiencing loss of taste or smell?: No Other Medical History Have you received the Flu Vaccine for this season: No Have you received the Pneumonia Vaccine: No Review of Systems Review of Systems Review of systems (narrative): 14 point review of systems performed, pertinent positives and negatives as per [facility] Meds Home Medications and Allergies Home Medications ?Medication ?Instructions ?Recorded ?Confirmed ?Type atorvastatin 40 mg tablet 40 mg PO HS 12/31/23 02/02/25 History bupropion HCl 150 mg tablet,12 hr 150 mg PO BID 12/31/23 02/02/25 History sustained-release clopidogrel 75 mg tablet 75 mg PO DAILY 12/31/23 02/02/25 History sertraline 100 mg tablet 200 mg PO DAILY 12/31/23 02/02/25 History rivastigmine 4.6 mg/24 hour 4.6 mg transdermal DAILY 03/24/24 02/02/25 History transdermal patch albuterol sulfate 90 mcg/actuation 2 inh inhalation QID PRN shortness 04/02/24 02/02/25 Rx aerosol inhaler of breath or wheezing 90 days #8.5 grams cyanocobalamin (vitamin B-12) 1,000 mcg PO DAILY 04/02/24 02/02/25 History 1,000 mcg tablet fluticasone fur. 100 mcg-umeclid 1 inh inhalation DAILY 90 days #60 04/02/24 02/02/25 Rx 62.5 mcg-vilant 25 mcg ea inhalat.powder (Trelegy Ellipta) ipratropium 0.5 mg-albuterol 3 mg 3 ml inhalation QID PRN shortness 04/02/24 02/02/25 Rx (2.5 mg base)/3 mL nebulization of breath or wheezing 90 days #270 soln mL isosorbide mononitrate 60 mg 60 mg PO DAILY #30 tabs 01/07/25 02/02/25 Rx tablet,extended release 24 hr meloxicam 15 mg tablet 15 mg PO DAILY 01/07/25 02/02/25 History montelukast 10 mg tablet 10 mg PO DAILY 01/07/25 02/02/25 History tizanidine 4 mg tablet 4 mg PO TID 01/07/25 02/02/25 History carvedilol 25 mg tablet 25 mg PO BID 30 days #60 tabs 01/17/25 02/02/25 Rx furosemide 40 mg tablet 40 mg PO DAILY 30 days #30 tabs 01/17/25 02/02/25 Rx New Prescriptions to Start Prescriptions: Allergies Allergy/AdvReac Type Severity Reaction Status Date / Time No Known Allergies Allergy Verified 02/02/25 14:30 Exam Data for Last 24 hours Vital signs and Labs for Last 24 Hours: Temp Pulse Resp BP Pulse Ox O2 Del Method O2 Flow Rate 98.6 F 76 20 189/92 H 97 Nasal Cannula 5 02/02/25 09:58 02/02/25 12:50 02/02/25 12:50 02/02/25 12:50 02/02/25 12:50 02/02/25 12:21 02/02/25 12:21 Laboratory Results - last 24 hr 02/02/25 10:00: WBC 7.9, RBC 3.39 L, Hgb 7.2 L, Hct 26.1 L, MCV 77.0 L, MCH 21.2 L, MCHC 27.6 L, RDW 19.3 H, Plt Count 277, MPV 10.5 H, Neut % (Auto) 62.6, Lymph % (Auto) 25.1, [place] % (Auto) 9.5 H, Eos % (Auto) 2.2, Baso % (Auto) 0.3, Neut # (Auto) 4.9, Lymph # (Auto) 2.0, [place] # (Auto) 0.8, Eos # (Auto) 0.2, Baso # (Auto) 0.0, Sodium 141, Potassium 3.7, Chloride 104, Carbon Dioxide 29, Anion Gap 11.7, BUN 18 H, Creatinine 0.90, Estimated Creat Clear 38, Estimated GFR 61, Est GFR ( Amer) 74, Glucose 113 H, Calcium 8.2 L, Total Bilirubin 0.2, AST 22, ALT 10 L, Alkaline Phosphatase 129 H, Troponin I < 0.01, NT-Pro-B Natriuret Pep 2050 H, Total Protein 6.4, Albumin 3.8, Globulin 2.6, Albumin/Globulin Ratio 1.5, HCV Ab NELLA w/Rflx PCR Qn Negative, HIV Ag/Ab Combo Qual Negative 02/02/25 10:04: Chlamy pneumoniae PCR Not detected, Adenovirus (PCR) Not detected, B. pertussis DNA (PCR) Not detected, Coronavirus OC43 (PCR) Not detected, Coronavirus HKU1 (PCR) Not detected, Coronavirus 229E (PCR) Not detected, SARS-CoV-2 (PCR) Not detected, Coronavirus NL63 (PCR) Not detected, Human Metapneumovir PCR Not detected, Influenza A (H1) PCR Not detected, Influ A (H1N1/09) PCR Not detected, Influenza A (H3) PCR Not detected, Influenza Type A (PCR) Not detected, Influenza Type B (PCR) Not detected, M. pneumoniae (PCR) Not detected, Parainfluenza 1 (PCR) Not detected, Parainfluenza 2 (PCR) Not detected, Parainfluenza 3 (PCR) Not detected, Parainfluenza 4 (PCR) Not detected, RSV (PCR) Not detected, Entero/Rhino (PCR) Not detected 02/02/25 10:07: VBG pH 7.27 L, VBG pCO2 46.4, VBG pO2 72.7 H, VBG HCO3 20.9 L, VBG Total CO2 22.3 L, VBG O2 Saturation 92.8 H, VBG Base Excess -5.9 L, VBG Lactic Acid 0.8 02/02/25 11:13: VBG pH 7.31, VBG pCO2 50.4, VBG pO2 30.9, VBG HCO3 24.6, VBG Total CO2 26.2, VBG O2 Saturation 57.0, VBG Base Excess -1.7, VBG Lactic Acid 1.1 I & O for Last 24 hours: Intake & Output 01/30/25 01/31/25 02/01/25 02/02/25 23:59 23:59 23:59 23:59 Intake Total 1.725 / 1.725 Balance 1.725 / .725 Weight 49.895 kg Constitutional Constitutional: moderate distress, thin, chronically ill appearing and cooperative *Routine HEENT Exam Head: Present normocephalic and atraumatic Eye: Present EOMI and PERRL ENT: Present mucous membranes moist *Routine Neck Exam Neck: Present supple; Absent JVD or lymphadenopathy *Routine Respiratory Exam Respiratory: Present accessory muscle use, prolonged expiratory phase, wheezes and diminished air movement; Absent rhonchi, crackles or able to speak in complete sentences *Routine Cardiovascular Exam Cardiovascular: Present RRR and murmur; Absent JVD *Routine Abdominal Exam Abdominal: Present soft and normoactive bowel sounds; Absent tenderness *Routine Rectal Exam Rectal:: deferred *Routine Genitalia Exam Genitalia:: deferred *Routine Extremities Exam Extremities: Present full ROM and pulses intact; Absent cyanosis, clubbing or edema *Routine Skin Exam Skin: Present intact and pallor; Absent rash *Routine Neurological Exam Neurological: Present alert, oriented X3, moving all extremities, vision grossly intact and hearing grossly intact; Absent sensory deficit or motor deficit Comments: Poor historian Routine Psychiatric Exam Psychiatric: Present normal affect and normal thought process Assessment and Plan *Assessment and plan (1) (HFpEF) heart failure with preserved ejection fraction: Status: Acute Qualifiers: Heart failure chronicity: chronic Qualified Code(s): I50.32 - Chronic diastolic (congestive) heart failure Category: Medical Code(s): I50.30 - Unspecified diastolic (congestive) heart failure (2) Acute exacerbation of CHF (congestive heart failure): Status: Acute Category: Medical Code(s): I50.9 - Heart failure, unspecified (3) Hypertension: Status: Acute Qualifiers: Hypertension type: primary hypertension Qualified Code(s): I10 - Essential (primary) hypertension Category: Medical Code(s): I10 - Essential (primary) hypertension (4) Hyperlipidemia: Status: Acute Qualifiers: Hyperlipidemia type: mixed hyperlipidemia Qualified Code(s): E78.2 - Mixed hyperlipidemia Category: Medical Code(s): E78.5 - Hyperlipidemia, unspecified (5) Chronic bronchitis: Status: Acute Category: Medical Code(s): J42 - Unspecified chronic bronchitis (6) Pulmonary hypertension: Status: Acute Category: Medical Code(s): I27.20 - Pulmonary hypertension, unspecified (7) Pulmonary emphysema: Status: Acute Qualifiers: Emphysema type: unspecified Qualified Code(s): J43.9 - Emphysema, unspecified Category: Medical Code(s): J43.9 - Emphysema, unspecified (8) Iron deficiency anemia: Status: Acute Qualifiers: Iron deficiency anemia type: unspecified iron deficiency Qualified Code(s): D50.9 - Iron deficiency anemia, unspecified Category: Medical Code(s): D50.9 - Iron deficiency anemia, unspecified (9) Dependence on supplemental oxygen: Status: Acute Category: Medical Code(s): Z99.81 - Dependence on supplemental oxygen (10) Chronic respiratory failure with hypoxia: Status: Acute Category: Medical Code(s): J96.11 - Chronic respiratory failure with hypoxia Plan Ms. Santiago is a 74-year-old female with history of chronic hypoxemic respiratory failure, COPD, HFpEF, CAD, hypertension, hyperlipidemia and cachexia. She presented to the ER with acute worsening of shortness of breath. Found to be hypoxic and in respiratory distress. Blood pressure severely elevated. Also found to be anemic with hemoglobin of 7.2. Discussed case with ER physician, request admission for further management of respiratory failure and malignant hypertension. Initiated on nitroglycerin drip. I decided to admit for further management. Admitted to the ICU. Blood pressures remain with systolics 190s to 200s. High risk for decompensation. Pulmonology and cardiology consulted to assist with care in the morning. Problems addressed as follows: -Acute on chronic hypoxemic respiratory failure: Severe exacerbation of chronic problem - Acute exacerbation of COPD: - Patient CT of chest personally reviewed showing bronchial thickening concerning for bronchitis. Also has very small bilateral effusions. Consistent with volume overload. - Given her respiratory distress, was initiated on azithromycin in the ED. Continue 500 mg IV daily. Pulmonology consulted to assist with care given her chronic COPD and respiratory failure along with her being established with pulmonology as an outpatient - Initial blood gas showed acidosis with pH of 7.27, pCO2 of 50. Was placed on BiPAP briefly, pH normalized very quickly to 7.31. Appears to be chronic hypercapnia. Appears compensated with elevated bicarb of 29 on CMP. - Alert and oriented but poor historian - Baseline oxygen at 3 L, currently on 5 L nasal cannula with respiratory distress and dyspnea, unable to complete sentences. Sats in the low 90s. Goal sats greater 90%. Wean as tolerated - DuoNeb every 6 hours scheduled. Pulmicort twice daily. -Repeat CBC, CMP, magnesium ordered for the morning - Comprehensive respiratory panel negative for all analytes Acute on chronic HFpEF Malignant hypertension Hyperlipidemia -BNP elevated at 1999, will initiate Lasix 80 mg IV once. Will consider repeat Lasix in the morning pending response. - Review of chart shows echo From May with preserved EF 55% and mild elevation in RVSP. - Heart cath performed 2 weeks ago with patent coronaries. Right atrial pressure of 20 mmHg. Did not have severe pulmonary hypertension. Did have hypertension however with blood pressure 220/110. Needs better control of her hypertension - Currently on nitroglycerin drip, goal SBP less than 180 in the first 8 hours, will aim for goal less than 140 by tomorrow -Initiate irbesartan 75 mg once, consider repeat dose this evening -Resume carvedilol 25 mg twice daily -Resume isosorbide mononitrate 30 mg tomorrow morning -Cardiology consulted to assist with management of malignant hypertension -Continue Lipitor 40 nightly, Plavix 75 mg daily Iron deficient anemia: Hemoglobin 7.2. MCV 77. Will consider transfusion for goal greater than 7 if hemoglobin continues to drop. Will administer Venofer 200 mg IV as blood pressure improves. Mood disorder: Continue Wellbutrin 150 mg twice daily, continue Zoloft 200 mg daily Full code Lovenox 40 mg subcu daily Cardiac diet
--- NOTE | 2025-02-02 13:55 | PC.NURSE ---
PT ARRIVED TO THE UNIT VIA STRETCHER WITH FLOOR ASSOCIATE AT THIS TIME
--- NOTE | 2025-02-02 14:55 | PC.NURSE ---
Pt's daughter contacted and updated on POC per pt's request.
[2025-02-02 14:56] LABS: Troponin I < 0.01 ng/ml (0.00-0.034)
[2025-02-02] MEDS: IRBESARTAN 75MG TABLET 75 MG PO (15:21)
[2025-02-02] MEDS: IPRATROPIUM/ALBUTEROL 3 ML NEB IH ×2 (15:44→23:57)
--- NOTE | 2025-02-02 17:21 | PC.NURSE ---
New admit this shift. A/Ox4. Wearing baseline 5 L O2 per nasal cannula. Pt visually SOA w/ activity and even when conversing back and forth w/ staff. Duonebs admin by RT per MD orders w/ some improvement verbalized from pt. Crackles noted bilaterally upon auscultation of lungs. HR regular. No edema noted. Remains on Nitro gtt, currently @ 20 mcg/min (titrating to a SBP ~150). Abdomen soft, non-tender w/ active BS in all quads. Pt states last BM was yesterday. Received 80 mg IV Lasix in ED and has diuresed over 2 L since admin. [place] in place to help w/ pt's activity intolerance r/t SOA. Skin is intact. Pt does report some generalized aches that she states are chronic. Also reports some chest tightness/discomfort r/t breathing. MD aware of this. Pt is currently sitting up in bed eating dinner tray. She has tried to contact her daughter again about bringing her personal belongings but has not been able to reach her @ this time. No further needs/concerns voiced. Call amber w/in reach. POC ongoing.
[2025-02-02 17:42] LABS: Troponin I < 0.01 ng/ml (0.00-0.034)
--- NOTE | 2025-02-02 18:54 | PC.NURSE ---
GTT stopped @ 1853 w/ v/o from Dr. Stringer. states he is okay w/ a SBP <180
[2025-02-02] MEDS: BUDESONIDE 0.5MG/2ML NEB 0.5 MG IH (19:55)
[2025-02-02] MEDS: CARVEDILOL 25MG TABLET 25 MG PO (20:09)
[2025-02-03] VITALS (74 sets, daily range): BP systolic 102–175; BP diastolic 43–109; PULSE 59–98; RESP 13–32; TEMP 36.8–37.1; O2SAT 84–100; BMI 21.4
[2025-02-03 02:16] LABS: Hematocrit 27.7 % (37.0-47.0)
[2025-02-03 03:04] LABS: Hemoglobin 8.4 g/dL (12.2-16.2)
[2025-02-03] MEDS: IPRATROPIUM/ALBUTEROL 3 ML NEB IH ×4 (05:15→23:58)
[2025-02-03] MEDS: BUDESONIDE 0.5MG/2ML NEB 0.5 MG IH ×2 (05:15→18:58)
[2025-02-03 06:43] LABS: Hematocrit 29.2 % (37.0-47.0); Hemoglobin 8.9 g/dL (12.2-16.2); Immature Granulocytes % 0.3 %; Mean Corpuscular HGB Conc 30.5 g/dL (31.8-35.4); Mean Corpuscular Hemoglobin 23.4 pg (27.0-31.2); Mean Corpuscular Volume 76.6 fl (81-99); Nucleated Red Blood Cells % 0 %; Platelet Count 259 K/mm3 (142-424); Red Blood Count 3.81 M/mm3 (4.20-5.40); Red Cell Distribution Width-SD 51.8 fL; White Blood Count 8.9 K/mm3 (4.8-10.8)
[2025-02-03 06:54] LABS: Albumin Level 3.9 g/dl (3.5-5.0); Chloride 96 mmol/L (98-107); Potassium 3.3 mmoL/L (3.5-5.1); Sodium 138 mmol/L (136-145)
[2025-02-03 06:56] LABS: Blood Urea Nitrogen 19 mg/dl (7-17); Creatinine Clearance Estimated 40 mL/min (50-200); Creatinine,Serum 1.00 mg/dl (0.52-1.04); Estimated Glomerular Filt Rate 54 ml/min (>60); GFR (African American) 65 ML/MIN (>60)
[2025-02-03 06:57] LABS: Alanine Aminotransferase 12 U/L (12-78); Albumin/Globulin Ratio 1.5 (1.1-1.8); Alkaline Phosphatase 98 U/L (38-126); Anion Gap 11.3 mEq/L (5-15); Aspartate Amino Transferase 23 U/L (14-36); Bilirubin,Total 0.3 mg/dl (0.2-1.3); Calcium 8.0 mg/dl (8.4-10.2); Carbon Dioxide 34 mmol/L (22.0-30.0); Globulin 2.6 g/dL (1.3-3.2); Glucose 130 mg/dl (74-100); Magnesium 1.5 mg/dl (1.6-2.3); Total Protein,Serum 6.5 g/dl (6.3-8.2)
[2025-02-03] MEDS: IRON SUCROSE COMPLEX 200 MG in 0.9 % SODIUM CHLORIDE 100 ML 220 MG IV (07:59)
[2025-02-03] MEDS: CARVEDILOL 25MG TABLET 25 MG PO ×2 (08:00→20:03)
[2025-02-03] MEDS: FUROSEMIDE 40 MG TABLET PO (08:00)
[2025-02-03] MEDS: ISOSORBIDE MONO 60MG TAB.ER.24H 60 MG PO (08:01)
[2025-02-03] MEDS: SERTRALINE 100MG TABLET 200 MG PO (08:02)
[2025-02-03] MEDS: CLOPIDOGREL 75MG TAB 75 MG PO (08:02)
--- NOTE | 2025-02-03 08:07 | P.PN_ITS ---
Subjective *Date: 02/03/25 *Time: 16:53 Interval history: Blood are doing better this morning. Systolics in the 160s. -1.4 L since admission. On 4 L oxygen, weaned to room air on rounds with sats temporarily above 90. Will reevaluate oxygen needs. Hemoglobin better after transfusion. Cardiology and pulmonology evaluating today. Continuing antibiotics. No nausea or vomiting. Feeling somewhat better but also states she feels little dizzy with her more or less normal blood pressures. Medical Exam Vital signs and Labs for Last 24 Hours: Vital Signs Temp Pulse Pulse Resp BP BP BP 02/03/25 07:36 02/03/25 07:15 70 19 02/03/25 07:04 74 18 169/77 H 02/03/25 06:59 02/03/25 06:00 69 22 169/80 H 02/03/25 05:18 72 02/03/25 05:18 75 02/03/25 05:18 02/03/25 05:00 02/03/25 05:00 79 26 H 148/91 H 02/03/25 04:00 70 02/03/25 04:00 76 18 159/83 H 02/03/25 04:00 77 02/03/25 03:00 02/03/25 03:00 79 16 157/72 H 02/03/25 02:00 79 16 160/82 H 02/03/25 01:42 98.4 F 74 18 161/75 H 02/03/25 00:52 02/03/25 00:42 98.6 F 76 22 163/74 H 02/03/25 00:39 98.6 F 77 20 165/69 H 02/03/25 00:00 70 02/03/25 00:00 72 02/02/25 23:58 77 02/02/25 23:57 76 02/02/25 23:40 97.8 F 75 19 121/57 L 02/02/25 23:25 97.8 F 74 20 138/63 02/02/25 23:10 98.0 F 74 21 111/68 02/02/25 23:00 02/02/25 22:55 97.8 F 73 17 115/53 L 02/02/25 22:50 98.3 F 72 18 110/49 L 02/02/25 22:45 98.1 F 71 22 107/52 L 02/02/25 22:40 98.0 F 72 19 113/47 L 02/02/25 22:40 98.7 F 74 22 119/57 L 02/02/25 22:00 98.7 F 78 21 114/54 L 02/02/25 21:00 83 17 128/58 L 02/02/25 21:00 02/02/25 20:01 98.9 F 89 24 172/84 H 02/02/25 20:00 83 02/02/25 20:00 89 02/02/25 19:10 70 25 H 150/57 H 02/02/25 19:01 88 28 H 163/75 H 02/02/25 18:50 84 18 144/72 H 02/02/25 18:43 02/02/25 18:41 87 23 136/58 L 02/02/25 18:31 160/67 H 02/02/25 18:20 88 26 H 156/66 H 02/02/25 18:15 87 25 H 130/69 02/02/25 18:00 82 22 130/62 02/02/25 17:41 148/84 H 02/02/25 17:30 106 H 16 155/79 H 02/02/25 17:20 187/88 H 02/02/25 17:11 164/90 H 02/02/25 17:00 71 22 168/75 H 02/02/25 17:00 02/02/25 16:50 75 20 167/80 H 02/02/25 16:40 72 19 169/73 H 02/02/25 16:30 72 22 172/72 H 02/02/25 16:20 70 24 177/80 H 02/02/25 16:10 73 21 177/80 H 02/02/25 16:00 73 19 186/82 H 02/02/25 16:00 02/02/25 16:00 70 02/02/25 15:50 74 02/02/25 15:50 74 02/02/25 15:50 71 20 185/80 H 02/02/25 15:40 70 16 177/83 H 02/02/25 15:30 81 21 185/86 H 02/02/25 15:20 67 21 184/89 H 02/02/25 15:10 205/100 H 02/02/25 15:10 206/89 H 02/02/25 15:01 80 19 203/91 H 02/02/25 15:00 02/02/25 14:55 71 23 199/88 H 02/02/25 14:51 69 23 210/89 H 02/02/25 14:48 70 21 200/85 H 02/02/25 14:29 25 H 02/02/25 14:06 80 02/02/25 14:05 97.8 F 72 23 187/80 H 02/02/25 13:49 97.8 F 70 18 165/81 H 02/02/25 13:30 69 22 178/88 H 02/02/25 13:26 71 18 131/77 02/02/25 13:20 20 180/86 H 02/02/25 13:15 70 16 183/85 H 02/02/25 13:10 66 26 H 177/82 H 02/02/25 13:06 68 16 163/106 H 02/02/25 13:00 66 22 161/76 H 02/02/25 12:55 65 14 192/112 H 02/02/25 12:50 76 20 189/92 H 02/02/25 12:45 61 23 184/90 H 02/02/25 12:40 64 19 177/82 H 02/02/25 12:35 66 16 180/84 H 02/02/25 12:30 67 17 178/90 H 02/02/25 12:25 69 20 175/102 H 02/02/25 12:21 70 16 175/102 H 02/02/25 12:15 72 16 155/89 H 02/02/25 12:11 70 15 163/88 H 02/02/25 12:06 67 17 179/114 H 02/02/25 12:00 69 16 165/91 H 02/02/25 11:56 69 17 150/78 H 02/02/25 11:50 70 25 H 142/74 H 02/02/25 11:45 14 129/86 02/02/25 11:40 73 22 151/80 H 02/02/25 11:35 71 13 168/77 H 02/02/25 11:34 71 18 153/86 H 02/02/25 11:30 74 12 147/79 H 02/02/25 11:05 81 18 201/97 H 02/02/25 11:01 70 19 207/102 H 02/02/25 10:40 66 18 176/86 H 02/02/25 10:12 67 02/02/25 10:00 71 178/80 H 02/02/25 09:58 98.6 F 75 20 165/77 H 02/02/25 09:57 72 165/77 H Pulse Ox O2 Del Method O2 Flow Rate 02/03/25 07:36 99 Nasal Cannula 4 02/03/25 07:15 100 Nasal Cannula 4 02/03/25 07:04 100 Nasal Cannula 4 02/03/25 06:59 Nasal Cannula 4 02/03/25 06:00 96 Nasal Cannula 4 02/03/25 05:18 02/03/25 05:18 02/03/25 05:18 96 Nasal Cannula 4 02/03/25 05:00 Nasal Cannula 5 02/03/25 05:00 95 Nasal Cannula 5 02/03/25 04:00 02/03/25 04:00 99 Nasal Cannula 3 02/03/25 04:00 99 Nasal Cannula 3 02/03/25 03:00 Nasal Cannula 5 02/03/25 03:00 100 Nasal Cannula 5 02/03/25 02:00 99 Nasal Cannula 5 02/03/25 01:42 98 02/03/25 00:52 Nasal Cannula 5 02/03/25 00:42 100 02/03/25 00:39 100 02/03/25 00:00 02/03/25 00:00 100 Nasal Cannula 5 02/02/25 23:58 02/02/25 23:57 02/02/25 23:40 100 02/02/25 23:25 99 02/02/25 23:10 97 02/02/25 23:00 Nasal Cannula 5 02/02/25 22:55 96 02/02/25 22:50 97 02/02/25 22:45 99 02/02/25 22:40 100 02/02/25 22:40 99 02/02/25 22:00 97 Nasal Cannula 5 02/02/25 21:00 95 Nasal Cannula 5 02/02/25 21:00 Nasal Cannula 5 02/02/25 20:01 100 Nasal Cannula 5 02/02/25 20:00 98 Nasal Cannula 5 02/02/25 20:00 02/02/25 19:10 98 Nasal Cannula 2 02/02/25 19:01 97 Nasal Cannula 5 02/02/25 18:50 96 Nasal Cannula 5 02/02/25 18:43 Nasal Cannula 5 02/02/25 18:41 95 Nasal Cannula 5 02/02/25 18:31 02/02/25 18:20 99 Nasal Cannula 5 02/02/25 18:15 98 Nasal Cannula 5 02/02/25 18:00 100 Nasal Cannula 5 02/02/25 17:41 02/02/25 17:30 98 Nasal Cannula 5 02/02/25 17:20 02/02/25 17:11 02/02/25 17:00 99 Nasal Cannula 5 02/02/25 17:00 Nasal Cannula 5 02/02/25 16:50 99 Nasal Cannula 5 02/02/25 16:40 98 Nasal Cannula 5 02/02/25 16:30 96 Nasal Cannula 5 02/02/25 16:20 98 Nasal Cannula 5 02/02/25 16:10 99 Nasal Cannula 5 02/02/25 16:00 100 Nasal Cannula 5 02/02/25 16:00 98 Nasal Cannula 5 02/02/25 16:00 02/02/25 15:50 02/02/25 15:50 02/02/25 15:50 100 Nasal Cannula 5 02/02/25 15:40 99 Nasal Cannula 5 02/02/25 15:30 99 Nasal Cannula 5 02/02/25 15:20 99 Nasal Cannula 5 02/02/25 15:10 02/02/25 15:10 02/02/25 15:01 97 Nasal Cannula 5 02/02/25 15:00 Nasal Cannula 5 02/02/25 14:55 95 Nasal Cannula 5 02/02/25 14:51 95 Nasal Cannula 5 02/02/25 14:48 93 L Nasal Cannula 5 02/02/25 14:29 98 Nasal Cannula 5 02/02/25 14:06 02/02/25 14:05 98 Nasal Cannula 5 02/02/25 13:49 Nasal Cannula 02/02/25 13:30 99 Nasal Cannula 5 02/02/25 13:26 99 Nasal Cannula 5 02/02/25 13:20 98 Nasal Cannula 5 02/02/25 13:15 98 Nasal Cannula 5 02/02/25 13:10 99 Nasal Cannula 5 02/02/25 13:06 99 Nasal Cannula 5 02/02/25 13:00 100 Nasal Cannula 5 02/02/25 12:55 97 Nasal Cannula 5 02/02/25 12:50 97 02/02/25 12:45 98 02/02/25 12:40 98 02/02/25 12:35 97 02/02/25 12:30 100 02/02/25 12:25 99 02/02/25 12:21 98 Nasal Cannula 5 02/02/25 12:15 96 Nasal Cannula 5 02/02/25 12:11 98 Nasal Cannula 5 02/02/25 12:06 98 Nasal Cannula 5 02/02/25 12:00 97 Nasal Cannula 5 02/02/25 11:56 98 Nasal Cannula 5 02/02/25 11:50 97 Nasal Cannula 5 02/02/25 11:45 98 Nasal Cannula 5 02/02/25 11:40 99 Nasal Cannula 5 02/02/25 11:35 96 Room Air 02/02/25 11:34 97 Room Air 02/02/25 11:30 97 Room Air 02/02/25 11:05 99 CPAP 02/02/25 11:01 98 CPAP 02/02/25 10:40 99 Room Air 02/02/25 10:12 02/02/25 10:00 99 Nasal Cannula 5 02/02/25 09:58 97 Nasal Cannula 5 02/02/25 09:57 99 Nasal Cannula 5 Intake and Output 02/02/25 02/03/25 02/03/25 23:59 07:59 15:59 Intake Total 401.275 / 460.850 326 / 326 Output Total 1260 / 1960 250 / 250 Balance -858.725 / -1499.150 76 / 76 Intake: Intake, Oral Amount 360 / 360 Intake, Other Amount 50 / 50 Intake, Total IV Amount 41.275 / 50.850 Nitroglycerin in 5 % Dextrose 250 ml @ 5 MCG/MIN 1.5 mls/hr IV .Q24H [facility] Rx#:[id number] Intake (Blood Product) Amt 0 / 0 276 / 276 Red Blood Cells Unit 0 / 0 276 / 276 [id number] Output: Output, Urine Amount 1260 / 1960 250 / 250 Other: Intake, Other Source Saline Solution Number of Unmeasured Voids 1 0 Number of Bowel Movements 1 Weight 51.664 kg Patient Weight 02/03/25 23:59 Weight 51.664 kg Laboratory Results - last 24 hr 02/02/25 10:00: WBC 7.9, RBC 3.39 L, Hgb 7.2 L, Hct 26.1 L, MCV 77.0 L, MCH 21.2 L, MCHC 27.6 L, RDW 19.3 H, Plt Count 277, MPV 10.5 H, Neut % (Auto) 62.6, Lymph % (Auto) 25.1, Weber % (Auto) 9.5 H, Eos % (Auto) 2.2, Baso % (Auto) 0.3, Neut # (Auto) 4.9, Lymph # (Auto) 2.0, Weber # (Auto) 0.8, Eos # (Auto) 0.2, Baso # (Auto) 0.0, Sodium 141, Potassium 3.7, Chloride 104, Carbon Dioxide 29, Anion Gap 11.7, BUN 18 H, Creatinine 0.90, Estimated Creat Clear 38, Estimated GFR 61, Est GFR ( Amer) 74, Glucose 113 H, Calcium 8.2 L, Total Bilirubin 0.2, AST 22, ALT 10 L, Alkaline Phosphatase 129 H, Troponin I < 0.01, NT-Pro-B Natriuret Pep 2050 H, Total Protein 6.4, Albumin 3.8, Globulin 2.6, Albumin/Globulin Ratio 1.5, HCV Ab NELLA w/Rflx PCR Qn Negative, HIV Ag/Ab Combo Qual Negative 02/02/25 10:04: Chlamy pneumoniae PCR Not detected, Adenovirus (PCR) Not detected, B. pertussis DNA (PCR) Not detected, Coronavirus OC43 (PCR) Not detected, Coronavirus HKU1 (PCR) Not detected, Coronavirus 229E (PCR) Not detected, SARS-CoV-2 (PCR) Not detected, Coronavirus NL63 (PCR) Not detected, Human Metapneumovir PCR Not detected, Influenza A (H1) PCR Not detected, Influ A (H1N1/09) PCR Not detected, Influenza A (H3) PCR Not detected, Influenza Type A (PCR) Not detected, Influenza Type B (PCR) Not detected, M. pneumoniae (PCR) Not detected, Parainfluenza 1 (PCR) Not detected, Parainfluenza 2 (PCR) Not detected, Parainfluenza 3 (PCR) Not detected, Parainfluenza 4 (PCR) Not detected, RSV (PCR) Not detected, Entero/Rhino (PCR) Not detected 02/02/25 10:07: VBG pH 7.27 L, VBG pCO2 46.4, VBG pO2 72.7 H, VBG HCO3 20.9 L, VBG Total CO2 22.3 L, VBG O2 Saturation 92.8 H, VBG Base Excess -5.9 L, VBG Lactic Acid 0.8 02/02/25 11:13: VBG pH 7.31, VBG pCO2 50.4, VBG pO2 30.9, VBG HCO3 24.6, VBG Total CO2 26.2, VBG O2 Saturation 57.0, VBG Base Excess -1.7, VBG Lactic Acid 1.1 02/02/25 14:20: Troponin I < 0.01 02/02/25 16:00: Troponin I < 0.01 02/02/25 20:35: Blood Type O Positive, Antibody Screen Negative, Crossmatch ([facility]) See Detail 02/03/25 01:50: Hgb 8.4 L D, Hct 27.7 L 02/03/25 05:21: WBC 8.9, RBC 3.81 L, Hgb 8.9 L, Hct 29.2 L, MCV 76.6 L, MCH 23.4 L, MCHC 30.5 L, RDW 18.8 H, Plt Count 259, MPV 10.6 H, Neut % (Auto) 71.8, Lymph % (Auto) 17.5, Weber % (Auto) 10.3 H, Eos % (Auto) 0.0 L, Baso % (Auto) 0.1, Neut # (Auto) 6.4, Lymph # (Auto) 1.6, Weber # (Auto) 0.9, Eos # (Auto) 0.0, Baso # (Auto) 0.0, Sodium 138, Potassium 3.3 L, Chloride 96 L, Carbon Dioxide 34 H, Anion Gap 11.3, BUN 19 H, Creatinine 1.00, Estimated Creat Clear 40, Estimated GFR 54 L, Est GFR ( Amer) 65, Glucose 130 H, Calcium 8.0 L, Magnesium 1.5 L, Total Bilirubin 0.3, AST 23, ALT 12, Alkaline Phosphatase 98, Total Protein 6.5, Albumin 3.9, Globulin 2.6, Albumin/Globulin Ratio 1.5 I & O for Labs for Last 24 Hours: Intake & Output 01/31/25 02/01/25 02/02/25 02/03/25 23:59 23:59 23:59 23:59 Intake Total 410.850 / 460.850 326 / 326 Output Total 1959 250 / 250 Balance -1549.150 / -1499.150 76 / 76 Weight 49.895 kg 51.664 kg Constitutional: Present mild distress, cachectic, chronically ill appearing and cooperative Head: Present atraumatic and normocephalic ENT: Present normal exam Respiratory: Present accessory muscle use, prolonged expiratory phase and diminished air movement; Absent respiratory distress, wheezes or crackles Cardiac: Present Reg Rate and Rhythm GI: Present soft and normal bowel sounds; Absent distention or tenderness Extremities: Present normal inspection and full ROM Comment:: Sarcopenia Skin: Present intact; Absent erythema Neuro: Present Grossly Intact, alert, awake, oriented x 3 and moves all extremities Assessment and Plan *Assessment and plan (1) (HFpEF) heart failure with preserved ejection fraction: Status: Acute Qualifiers: Heart failure chronicity: chronic Qualified Code(s): I50.32 - Chronic diastolic (congestive) heart failure Category: Medical Code(s): I50.30 - Unspecified diastolic (congestive) heart failure (2) Acute exacerbation of CHF (congestive heart failure): Status: Acute Category: Medical Code(s): I50.9 - Heart failure, unspecified (3) Hypertension: Status: Acute Qualifiers: Hypertension type: primary hypertension Qualified Code(s): I10 - Essential (primary) hypertension Category: Medical Code(s): I10 - Essential (primary) hypertension (4) Hyperlipidemia: Status: Acute Qualifiers: Hyperlipidemia type: mixed hyperlipidemia Qualified Code(s): E78.2 - Mixed hyperlipidemia Category: Medical Code(s): E78.5 - Hyperlipidemia, unspecified (5) Chronic bronchitis: Status: Acute Category: Medical Code(s): J42 - Unspecified chronic bronchitis (6) Pulmonary hypertension: Status: Acute Category: Medical Code(s): I27.20 - Pulmonary hypertension, unspecified (7) Pulmonary emphysema: Status: Acute Qualifiers: Emphysema type: unspecified Qualified Code(s): J43.9 - Emphysema, unspecified Category: Medical Code(s): J43.9 - Emphysema, unspecified (8) Iron deficiency anemia: Status: Acute Qualifiers: Iron deficiency anemia type: unspecified iron deficiency Qualified Code(s): D50.9 - Iron deficiency anemia, unspecified Category: Medical Code(s): D50.9 - Iron deficiency anemia, unspecified (9) Dependence on supplemental oxygen: Status: Acute Category: Medical Code(s): Z99.81 - Dependence on supplemental oxygen (10) Chronic respiratory failure with hypoxia: Status: Acute Category: Medical Code(s): J96.11 - Chronic respiratory failure with hypoxia Plan Ms. Santiago is a 74-year-old female with history of chronic hypoxemic respiratory failure, COPD, HFpEF, CAD, hypertension, hyperlipidemia and cachexia. She presented to the ER with acute worsening of shortness of breath. Found to be hypoxic and in respiratory distress. Blood pressure severely elevated. Also found to be anemic with hemoglobin of 7.2. Discussed case with ER physician, request admission for further management of respiratory failure and malignant hypertension. Initiated on nitroglycerin drip. I decided to admit for further management. Admitted to the ICU. Blood pressures remain with systolics 190s to 200s. High risk for decompensation. Pulmonology and cardiology evaluated today. Continues to require inpatient management. Adjustments made to medications. Problems addressed as follows: Acute on chronic hypoxemic respiratory failure: Severe exacerbation of chronic problem Acute exacerbation of COPD: - Discussed case with pulmonology, recommend continuing azithromycin 5 mg IV daily, will add ceftriaxone 1 g daily for COPD/pneumonia component. - Showing improvement in respiratory status with antibiotics and breathing treatments along with improvement in blood pressure. Continue supplemental oxygen, goal sats greater 90%. Currently on 1 L. At home normally wears 2 to 3 L more for comfort than anything. - Continue duoneb every 6 hours scheduled, Pulmicort twice daily, - Transition to prednisone 40 mg daily to complete 5 days of therapy - White count 8.9, hemoglobin 8.9 Acute on chronic HFpEF Malignant hypertension Hyperlipidemia -BNP elevated at 1999, will initiate Lasix 80 mg IV once. Will consider repeat Lasix in the morning pending response. - Review of chart shows echo From May with preserved EF 55% and mild elevation in RVSP. - Heart cath performed 2 weeks ago with patent coronaries. Right atrial pressure of 20 mmHg. Did not have severe pulmonary hypertension. Did have hypertension however with blood pressure 220/110. Needs better control of her hypertension - Discussed case with cardiology, continue adjustment of medications for hypertension. Continue medications as follows: Coreg 25 mg p.o. twice daily Lasix 40 mg p.o. daily Imdur 60 mg p.o. daily Irbesartan 75 mg p.o. daily Plavix 75 mg p.o. daily Aldactone 25 mg p.o. daily Jardiance 10 mg p.o. daily - Kidney function normal with BUN 19, creatinine 1. Potassium 3.3, magnesium 1.5, electrolyte protocol ordered Iron deficient anemia: Hemoglobin 7.2 on admission, responded well to transfusion. Hemoglobin 8.9 this morning. administer Venofer 200 mg IV; repeat CBC, CMP, magnesium ordered for the morning Mood disorder: Continue Wellbutrin 150 mg twice daily, continue Zoloft 200 mg daily Full code Lovenox 40 mg subcu daily Cardiac diet
[2025-02-03] MEDS: IRBESARTAN 75MG TABLET 75 MG PO (08:34)
[2025-02-03] MEDS: POTASSIUM CHLORIDE 20MEQ TAB 40 MEQ PO ×2 (09:01→12:39)
[2025-02-03] MEDS: MAGNESIUM SULFATE IN WATER 2 GM/50 ML PIGGYBACK IV ×2 (09:02→09:52)
--- NOTE | 2025-02-03 09:10 | PC.NURSE ---
Per , Patient does not need another echo at this time. Continuation of care plan.
--- NOTE | 2025-02-03 09:35 | EXP.PULM.CON ---
History of Present Illness History of present illness: Ms. Santiago is a 74-year-old female with history of COPD, chronic hypoxic respiratory failure on 3 L oxygen supplementation at baseline, preserved EF heart failure, hypertension presented with worsening respiratory distress and pulmonary was called for further evaluation and management. [facility] Disclaimer: The information contained in this section may have been updated after the patient was seen, as this information can be updated by other users. Medical History (Updated 02/03/25 @ 11:57 by Nora Vega MD) CAP (community acquired pneumonia) Other forms of dyspnea Pulmonary hypertension Hyperlipidemia Hypertension Dyspnea Atypical angina Chronic respiratory failure with hypoxia Encounter for screening for malignant neoplasm of lung Smoking greater than 30 pack years Pulmonary emphysema COPD exacerbation BMI less than 19,adult (HFpEF) heart failure with preserved ejection fraction Tobacco dependence Dependence on supplemental oxygen Coronary artery disease Iron deficiency anemia COPD (chronic obstructive pulmonary disease) Surgical History Hx of esophagogastroduodenoscopy History of colonoscopy History of hysterectomy History of heart artery stent S/P cardiac catheterization Family History Father Alzheimer disease Mother Stroke Social History Smoking Status: Former smoker tobacco type: cigarettes packs per day: 1 years smoked: 60 smoking status stop date: 3 years ago alcohol intake: former current occupational status: other Travel in the last 8 weeks?: None Have you lived/traveled outside [place] in past 30 days?: No Contact w/someone who lives/traveled outside [place] past 30 days?: No Exposure to someone with infectious disease in past 14 days?: No Do you have a fever (greater than 100.4 F or 38 C)?: No Have you tested positive for COVID-19?: No Exposed to someone with COVID-19 in past 14 days?: No Do you have a sore throat?: No Do you have a cough?: No Do you have any weakness?: No Do you have any diarrhea?: No Are you experiencing any unusual bleeding?: No Do you have any muscle aches/pain?: No Do you have any abdominal pain?: No Are you experiencing loss of taste or smell?: No Review of Systems Constitutional Constitutional: Reports anorexia, Reports body ache(s) and Reports fatigue Eyes Eyes: Denies eye discharge, Denies dry eyes, Denies irritation and Denies itchy eyes ENT Ears, Nose, Mouth, and Throat: Denies epistaxis, Denies facial pain, Denies lip swelling and Denies throat swelling *Cardiovascular Cardiovascular: Reports dyspnea and Reports dyspnea on exertion *Respiratory Respiratory: Denies change in phlegm color, Reports chest congestion, Reports cough, Reports dyspnea, Reports dyspnea on exertion, Reports excessive phlegm production and Reports wheezing *Gastrointestinal Gastrointestinal: Denies abdominal pain, Denies belching and Denies cramping *Musculoskeletal Musculoskeletal: Reports back pain, Reports myalgias and Reports other (No small joint swelling or Pain) Psychiatric Psychiatric: Denies homicidal ideation and Denies suicidal ideation Endocrine Endocrine: Reports fatigue and Denies heat intolerance Hematologic/Lymphatic Hematologic/Lymphatic: Denies easy bleeding and Denies lymphadenopathy Allergic/Immunologic Allergic/Immunologic: Denies itchy eyes, Denies lip swelling, Denies throat swelling and Reports wheezing Pulmonology Exam Inpatient Vital signs and Labs for Last 24 Hours: Temp Pulse Resp BP Pulse Ox O2 Del Method O2 Flow Rate 98.7 F 95 H 25 H 134/61 90 L Nasal Cannula 3 02/03/25 08:00 02/03/25 09:15 02/03/25 09:15 02/03/25 09:00 02/03/25 09:15 02/03/25 09:15 02/03/25 09:15 Laboratory Results - last 24 hr 02/02/25 10:00: WBC 7.9, RBC 3.39 L, Hgb 7.2 L, Hct 26.1 L, MCV 77.0 L, MCH 21.2 L, MCHC 27.6 L, RDW 19.3 H, Plt Count 277, MPV 10.5 H, Neut % (Auto) 62.6, Lymph % (Auto) 25.1, Snyder % (Auto) 9.5 H, Eos % (Auto) 2.2, Baso % (Auto) 0.3, Neut # (Auto) 4.9, Lymph # (Auto) 2.0, Snyder # (Auto) 0.8, Eos # (Auto) 0.2, Baso # (Auto) 0.0, Sodium 141, Potassium 3.7, Chloride 104, Carbon Dioxide 29, Anion Gap 11.7, BUN 18 H, Creatinine 0.90, Estimated Creat Clear 38, Estimated GFR 61, Est GFR ( Amer) 74, Glucose 113 H, Calcium 8.2 L, Total Bilirubin 0.2, AST 22, ALT 10 L, Alkaline Phosphatase 129 H, Troponin I < 0.01, NT-Pro-B Natriuret Pep 2050 H, Total Protein 6.4, Albumin 3.8, Globulin 2.6, Albumin/Globulin Ratio 1.5, HCV Ab NELLA w/Rflx PCR Qn Negative, HIV Ag/Ab Combo Qual Negative 02/02/25 10:04: Chlamy pneumoniae PCR Not detected, Adenovirus (PCR) Not detected, B. pertussis DNA (PCR) Not detected, Coronavirus OC43 (PCR) Not detected, Coronavirus HKU1 (PCR) Not detected, Coronavirus 229E (PCR) Not detected, SARS-CoV-2 (PCR) Not detected, Coronavirus NL63 (PCR) Not detected, Human Metapneumovir PCR Not detected, Influenza A (H1) PCR Not detected, Influ A (H1N1/09) PCR Not detected, Influenza A (H3) PCR Not detected, Influenza Type A (PCR) Not detected, Influenza Type B (PCR) Not detected, M. pneumoniae (PCR) Not detected, Parainfluenza 1 (PCR) Not detected, Parainfluenza 2 (PCR) Not detected, Parainfluenza 3 (PCR) Not detected, Parainfluenza 4 (PCR) Not detected, RSV (PCR) Not detected, Entero/Rhino (PCR) Not detected 02/02/25 10:07: VBG pH 7.27 L, VBG pCO2 46.4, VBG pO2 72.7 H, VBG HCO3 20.9 L, VBG Total CO2 22.3 L, VBG O2 Saturation 92.8 H, VBG Base Excess -5.9 L, VBG Lactic Acid 0.8 02/02/25 11:13: VBG pH 7.31, VBG pCO2 50.4, VBG pO2 30.9, VBG HCO3 24.6, VBG Total CO2 26.2, VBG O2 Saturation 57.0, VBG Base Excess -1.7, VBG Lactic Acid 1.1 02/02/25 14:20: Troponin I < 0.01 02/02/25 16:00: Troponin I < 0.01 02/02/25 20:35: Blood Type O Positive, Antibody Screen Negative, Crossmatch (AHG) See Detail 02/03/25 01:50: Hgb 8.4 L D, Hct 27.7 L 02/03/25 05:21: WBC 8.9, RBC 3.81 L, Hgb 8.9 L, Hct 29.2 L, MCV 76.6 L, MCH 23.4 L, MCHC 30.5 L, RDW 18.8 H, Plt Count 259, MPV 10.6 H, Neut % (Auto) 71.8, Lymph % (Auto) 17.5, Snyder % (Auto) 10.3 H, Eos % (Auto) 0.0 L, Baso % (Auto) 0.1, Neut # (Auto) 6.4, Lymph # (Auto) 1.6, Snyder # (Auto) 0.9, Eos # (Auto) 0.0, Baso # (Auto) 0.0, Sodium 138, Potassium 3.3 L, Chloride 96 L, Carbon Dioxide 34 H, Anion Gap 11.3, BUN 19 H, Creatinine 1.00, Estimated Creat Clear 40, Estimated GFR 54 L, Est GFR ( Amer) 65, Glucose 130 H, Calcium 8.0 L, Magnesium 1.5 L, Total Bilirubin 0.3, AST 23, ALT 12, Alkaline Phosphatase 98, Total Protein 6.5, Albumin 3.9, Globulin 2.6, Albumin/Globulin Ratio 1.5 I & O for Labs for Last 24 Hours: Intake & Output 01/31/25 02/01/25 02/02/25 02/03/25 23:59 23:59 23:59 23:59 Intake Total 410.850 / 460.850 661 / 661 Output Total 1959 / 1959 250 / 250 Balance -1549.150 / -1499.150 411 / 411 Weight 110 lb 113 lb 14.4 oz Constitutional: Present moderate distress Head: Present normocephalic and atraumatic ENT: Present normal exam, normal oropharynx and mucous membranes moist Neck: Present normal inspection and full ROM Respiratory: Present prolonged expiratory phase, respiratory distress, rhonchi, diminished air movement and able to speak in complete sentences; Absent wheezes Cardiac: Present S1/S2, Tachycardia and radial pulses present GI: Present soft and distention; Absent tenderness or guarding Rectal (female): Present deferred (female): Present deferred Skin: Present intact; Absent cyanosis or jaundice Neuro: Present alert, awake and oriented x 3 Extremities: Present normal inspection; Absent clubbing or cyanosis Psychiatric: Present normal affect and cooperative Meds Home Medications and Allergies Home Medications ?Medication ?Instructions ?Recorded ?Confirmed ?Type atorvastatin 40 mg tablet 40 mg PO HS 12/31/23 02/02/25 History bupropion HCl 150 mg tablet,12 hr 150 mg PO BID 12/31/23 02/02/25 History sustained-release clopidogrel 75 mg tablet 75 mg PO DAILY 12/31/23 02/02/25 History sertraline 100 mg tablet 200 mg PO DAILY 12/31/23 02/02/25 History rivastigmine 4.6 mg/24 hour 4.6 mg transdermal DAILY 03/24/24 02/02/25 History transdermal patch albuterol sulfate 90 mcg/actuation 2 inh inhalation QID PRN shortness 04/02/24 02/02/25 Rx aerosol inhaler of breath or wheezing 90 days #8.5 grams cyanocobalamin (vitamin B-12) 1,000 mcg PO DAILY 04/02/24 02/02/25 History 1,000 mcg tablet fluticasone fur. 100 mcg-umeclid 1 inh inhalation DAILY 90 days #60 04/02/24 02/02/25 Rx 62.5 mcg-vilant 25 mcg ea inhalat.powder (Trelegy Ellipta) ipratropium 0.5 mg-albuterol 3 mg 3 ml inhalation QID PRN shortness 04/02/24 02/02/25 Rx (2.5 mg base)/3 mL nebulization of breath or wheezing 90 days #270 soln mL isosorbide mononitrate 60 mg 60 mg PO DAILY #30 tabs 01/07/25 02/02/25 Rx tablet,extended release 24 hr meloxicam 15 mg tablet 15 mg PO DAILY 01/07/25 02/02/25 History montelukast 10 mg tablet 10 mg PO HS 01/07/25 02/03/25 History carvedilol 25 mg tablet 25 mg PO BID 30 days #60 tabs 01/17/25 02/02/25 Rx furosemide 40 mg tablet 40 mg PO DAILY 30 days #30 tabs 01/17/25 02/02/25 Rx New Prescriptions to Start Prescriptions: Allergies Allergy/AdvReac Type Severity Reaction Status Date / Time No Known Allergies Allergy Verified 02/02/25 14:30 Results Laboratory Findings 02/03/25 05:21 02/03/25 05:21 Abnormal lab findings: Abnormal Labs 02/02/25 02/02/25 02/02/25 10:00 10:07 20:35 RBC 3.39 L Hgb 7.2 L Hct 26.1 L MCV 77.0 L MCH 21.2 L MCHC 27.6 L RDW 19.3 H MPV 10.5 H Snyder % (Auto) 9.5 H Eos % (Auto) VBG pH 7.27 L VBG pO2 72.7 H VBG HCO3 20.9 L VBG Total CO2 22.3 L VBG O2 Saturation 92.8 H VBG Base Excess -5.9 L Potassium Chloride Carbon Dioxide BUN 18 H Estimated GFR Glucose 113 H Calcium 8.2 L Magnesium ALT 10 L Alkaline Phosphatase 129 H NT-Pro-B Natriuret Pep 0 H Crossmatch (AHG) See Detail 02/03/25 02/03/25 01:50 05:21 RBC 3.81 L Hgb 8.4 L D 8.9 L Hct 27.7 L 29.2 L MCV 76.6 L MCH 23.4 L MCHC 30.5 L RDW 18.8 H MPV 10.6 H Snyder % (Auto) 10.3 H Eos % (Auto) 0.0 L VBG pH VBG pO2 VBG HCO3 VBG Total CO2 VBG O2 Saturation VBG Base Excess Potassium 3.3 L Chloride 96 L Carbon Dioxide 34 H BUN 19 H Estimated GFR 54 L Glucose 130 H Calcium 8.0 L Magnesium 1.5 L ALT Alkaline Phosphatase NT-Pro-B Natriuret Pep Crossmatch (AHG) Assessment and Plan *Assessment and plan (1) Acute exacerbation of chronic obstructive pulmonary disease: Status: Acute Category: Medical Code(s): J44.1 - Chronic obstructive pulmonary disease with (acute) exacerbation (2) CAP (community acquired pneumonia): Status: Acute Category: Medical Code(s): J18.9 - Pneumonia, unspecified organism Plan Ms. Santiago is a 74-year-old female with history of COPD, chronic hypoxic respiratory failure on 3 L oxygen supplementation at baseline, preserved EF heart failure, hypertension presented with worsening respiratory distress and pulmonary was called for further evaluation and management. Afebrile. Hemodynamically stable. No evidence of leukocytosis. Comprehensive respiratory viral PCR panel Blood gas upon admission combined respiratory and metabolic acidosis with a pH of 7.27 and pCO2 46.4. CTA upon admission no evidence of pulmonary embolism. Diffuse centrilobular emphysematous changes. Very minimal patchy airspace disease in the left lingula along with bilateral lower lobes left greater than right. Currently receiving azithromycin, nebulization therapies and steroids. On examination moderate respiratory distress. No significant wheezing noted on auscultation. Plan: Continue oxygen supplementation only as needed to maintain O2 saturation goal of 90% and above. Oxygen supplementation weaned to room air this morning. DuoNebs every 6 hours along with Pulmicort every 12 scheduled Continue steroids, prednisone 40 mg daily to complete a total of 5-day course Initiate ceftriaxone. Continue azithromycin pending final sputum culture results. Sputum induction.
[2025-02-03] MEDS: FLUTICASONE/UMECLIDIN/VILANTER 100/62.5/25MCG INHALER 1 PUFF IH (09:52)
--- NOTE | 2025-02-03 10:28 | HMH.PTEV ---
Physical Therapy Evaluation Rehab PT IP Evaluation Start: 02/02/25 16:23 Freq: ONCE Status: Active Protocol: Document 02/03/25 10:21 LESTER (Rec: 02/03/25 10:28 LESTER [id number]) Subjective/History History History Per H&P: Ms. Santiago is a 74-year-old female with history of COPD on 3 L oxygen at baseline, HFpEF, hypertension, mood disorder. Presented to the ER with worsening dyspnea and shortness of breath over the past 2 to 3 days per her report. Has been having some chest tightness. Denies any nausea or vomiting. Initially placed on 5 L when EMS picked her up but O2 sats were only at 90%. On arrival to the ED, concern for possible hypercapnia versus respiratory distress. Was placed on BiPAP temporarily. Blood pressure severely elevated. Concern for acute HFpEF exacerbation and malignant hypertension. Medicine consulted for admission and further management. On my evaluation, patient cannot complete full sentences without having to take her breath. Appears in moderate distress. Sats improved however and on 5 L at this time. Diuresing well. Received Lasix in the ED. Subjective Subjective PLOF: IND with all mobility without AD use. Not driving HOME: Lives with her daughter in a single-story home with 5-6 KAIT (no HRs). Available assistance: Daughter able to provide 24/7 SPV if needed per pt. Has a RW if needed. New diagnosis of No cancer in past 12 months? [facility] How much help from another person do you currently need... Turning from your None back to your side while in a flat bed without using bedrails? Moving from lying on None back to sitting on the side of a flat bed without using bedrails? Moving to and from a None bed to a chair ( including a wheelchair)? Standing up from a A little chair using your arms? (e.g., wheelchair, bedside chair) Walking in hospital A little room? Climbing 3-5 steps A little with a railing? Mobility Score 21 Mobility Level [facility] Mobility 6 Walk 10 steps or more Mobility Calculator Rehab PT IP Eval Objective Appearance Patient Behavior Appropriate,Cooperative Patient Orientation Person,Place,Situation Difficulty following none instructions Speech Pattern Clear Ambulation Patient Able to Yes Ambulate Ambulation Observation IP General Gait Narrow Based Gait Pattern Observation Ambulation Distance 5 (feet) Ambulation Assistive None Device Ambulation Ability Minimal x 1 (25% assist) Balance Ability to Arise Able, uses arms to help Sitting Balance Steady, safe Standing Balance Steady, wide stance Dynamic Sitting Good Balance Ability Dynamic Standing Fair Balance Ability Transfers Bed Transfer Ability Independent Sit to Stand Bed Minimal x 1 (25% assist) Transfer Ability Rehab PT IP prob,goals,plan Problems Date of Evaluation: 02/03/25 PT IP Problems Bed Mobility,Transfers,Gait,Balance,Self care,Safety Rehab Potential Rehab Potential Good Plan PT Intervention Plan Bed Mobility,Transfers,Gait,Balance,Self care,Safety, Therapeutic Exercise Other Intervention 1-2 times Plan PT Plan Frequency Daily Duration LOS Discharge Goals Bed Transfer Ability Independent Sit to Stand Chair Independent Transfer Ability Ambulation Assistive Rolling Walker Device Ambulation Distance 15 (feet) Discharge Plan PT Discharge Plan Pt presents below baseline in mobility. Pt would benefit from skilled acute care PT while at [facility] to prevent further functional decline. Pt may be safe to d/c home with HH and RW use if she is able to secure reliant 24/7 assistance at home. If she does not have 24/7 assistance, pt would benefit from skilled inpatient rehabilitation. Eval Complexity Eval Charge Codes 85113 - Moderate Complexity PHYSICIAN CERTIFICATION: I certify the specified therapy services for Loreta Santiago are required, authorized, and reviewed every 30 days.
--- NOTE | 2025-02-03 11:47 | EXP.CARD.CON ---
History of Present Illness History of Present Illness Consult date: 02/03/25 Requesting physician: Juan Manuel Stringer Consult reason: shortness of breath Chief complaint: SOA History of present illness: Ms. Santiago is a 74-year-old white female with a past medical history of coronary artery disease, HFpEF, COPD on 3 L nasal cannula and iron deficiency anemia who presented yesterday with complaints of worsening shortness of breath x 2 to 3 days with mild intermittent episodes of chest tightness. On arrival to ER patient was found to be hypoxic and in respiratory distress with a severely elevated blood pressure with systolics in the 200s. She was also found to be anemic with a hemoglobin of 7.2. Serial troponins were negative x 3. ProBNP was 2049. Chest CTA on admission was negative for pulmonary embolism but did show bronchial wall thickening in both lower lobes concerning for bronchitis and tiny bilateral pleural effusions. Incidental findings of a large cystic foci in the thyroid gland and 5 mm pulmonary nodules were also noted and new since previous imaging. Patient was started on diuretics and nitro drip for hypertension and admitted for acute on chronic hypoxic respiratory failure, acute exacerbation of COPD and acute on chronic HFpEF with malignant hypertension. Patient has diuresed well and blood pressure is improving. Patient was transfused with 1 unit of packed red blood cells. Hemoglobin has improved to 8.9. She has been off nitro drip since yesterday and blood pressure is now well-controlled. Echo from May 2024 showed a normal biventricular systolic function with mild RV dilation and mild TR with an RVSP of 25-30. Patient underwent a right and left heart catheterization January 2025 which was medical management for mild nonflow limiting coronary artery disease, hyperdynamic ventricle and increased biventricular filling pressures. Patient was also noted to be extremely hypertensive on cath and needs better blood pressure control. [facility] Disclaimer: The information contained in this section may have been updated after the patient was seen, as this information can be updated by other users. Medical History (Updated 02/03/25 @ 11:57 by Nora Vega MD) CAP (community acquired pneumonia) Other forms of dyspnea Pulmonary hypertension Hyperlipidemia Hypertension Dyspnea Atypical angina Chronic respiratory failure with hypoxia Encounter for screening for malignant neoplasm of lung Smoking greater than 30 pack years Pulmonary emphysema COPD exacerbation BMI less than 19,adult (HFpEF) heart failure with preserved ejection fraction Tobacco dependence Dependence on supplemental oxygen Coronary artery disease Iron deficiency anemia COPD (chronic obstructive pulmonary disease) Surgical History Hx of esophagogastroduodenoscopy History of colonoscopy History of hysterectomy History of heart artery stent S/P cardiac catheterization Family History Father Alzheimer disease Mother Stroke Social History Smoking Status: Former smoker tobacco type: cigarettes packs per day: 1 years smoked: 60 smoking status stop date: 3 years ago alcohol intake: former current occupational status: other Travel in the last 8 weeks?: None Have you lived/traveled outside [place] in past 30 days?: No Contact w/someone who lives/traveled outside US past 30 days?: No Exposure to someone with infectious disease in past 14 days?: No Do you have a fever (greater than 100.4 F or 38 C)?: No Have you tested positive for COVID-19?: No Exposed to someone with COVID-19 in past 14 days?: No Do you have a sore throat?: No Do you have a cough?: No Do you have any weakness?: No Do you have any diarrhea?: No Are you experiencing any unusual bleeding?: No Do you have any muscle aches/pain?: No Do you have any abdominal pain?: No Are you experiencing loss of taste or smell?: No Review of Systems Review of Systems Review of systems:: pertinent systems reviewed and negative unless documented below Constitutional Constitutional: Reports system reviewed and no additional complaints, except as documented *Cardiovascular Cardiovascular: Reports chest pain and Reports dyspnea *Respiratory Respiratory: Reports system reviewed and no additional complaints, except as documented and Reports dyspnea *Gastrointestinal Gastrointestinal: Reports system reviewed and no additional complaints, except as documented *Neurologic Neurologic: Reports system reviewed and no additional complaints, except as documented and Denies confusion Psychiatric Psychiatric: Reports system reviewed and no additional complaints, except as documented and Denies confusion Exam Data for Last 24 hours Vital signs and Labs for Last 24 Hours: Temp Pulse Resp BP Pulse Ox O2 Del Method O2 Flow Rate 98.7 F 59 L 17 105/56 L 96 Nasal Cannula 2 02/03/25 08:00 02/03/25 11:00 02/03/25 11:00 02/03/25 11:00 02/03/25 11:00 02/03/25 11:00 02/03/25 11:00 Laboratory Results - last 24 hr 02/02/25 14:20: Troponin I < 0.01 02/02/25 16:00: Troponin I < 0.01 02/02/25 20:35: Blood Type O Positive, Antibody Screen Negative, Crossmatch (AHG) See Detail 02/03/25 01:50: Hgb 8.4 L D, Hct 27.7 L 02/03/25 05:21: WBC 8.9, RBC 3.81 L, Hgb 8.9 L, Hct 29.2 L, MCV 76.6 L, MCH 23.4 L, MCHC 30.5 L, RDW 18.8 H, Plt Count 259, MPV 10.6 H, Neut % (Auto) 71.8, Lymph % (Auto) 17.5, [place] % (Auto) 10.3 H, Eos % (Auto) 0.0 L, Baso % (Auto) 0.1, Neut # (Auto) 6.4, Lymph # (Auto) 1.6, [place] # (Auto) 0.9, Eos # (Auto) 0.0, Baso # (Auto) 0.0, Sodium 138, Potassium 3.3 L, Chloride 96 L, Carbon Dioxide 34 H, Anion Gap 11.3, BUN 19 H, Creatinine 1.00, Estimated Creat Clear 40, Estimated GFR 54 L, Est GFR ( Amer) 65, Glucose 130 H, Calcium 8.0 L, Magnesium 1.5 L, Total Bilirubin 0.3, AST 23, ALT 12, Alkaline Phosphatase 98, Total Protein 6.5, Albumin 3.9, Globulin 2.6, Albumin/Globulin Ratio 1.5 I & O for Last 24 hours: Intake & Output 01/31/25 02/01/25 02/02/25 02/03/25 23:59 23:59 23:59 23:59 Intake Total 410.850 / 460.850 661 / 661 Output Total 1959 / 1959 250 / 250 Balance -1549.150 / -1499.150 411 / 411 Weight 110 lb 113 lb 14.4 oz Constitutional Constitutional: no acute distress *Routine Respiratory Exam Respiratory: Present diminished air movement and symmetric chest movement *Routine Cardiovascular Exam Cardiovascular: Present RRR, Normal S1 and Normal S2 *Routine Abdominal Exam Abdominal: Present soft and normoactive bowel sounds; Absent tenderness *Routine Extremities Exam Extremities: Present full ROM and normal capillary refill; Absent edema *Routine Skin Exam Skin: Present intact, dry and warm Detailed Neck Exam: Thyroids Thyroid: Absent bruit Meds Home Medications and Allergies Home Medications ?Medication ?Instructions ?Recorded ?Confirmed ?Type atorvastatin 40 mg tablet 40 mg PO HS 12/31/23 02/02/25 History bupropion HCl 150 mg tablet,12 hr 150 mg PO BID 12/31/23 02/02/25 History sustained-release clopidogrel 75 mg tablet 75 mg PO DAILY 12/31/23 02/02/25 History sertraline 100 mg tablet 200 mg PO DAILY 12/31/23 02/02/25 History rivastigmine 4.6 mg/24 hour 4.6 mg transdermal DAILY 03/24/24 02/02/25 History transdermal patch albuterol sulfate 90 mcg/actuation 2 inh inhalation QID PRN shortness 04/02/24 02/02/25 Rx aerosol inhaler of breath or wheezing 90 days #8.5 grams cyanocobalamin (vitamin B-12) 1,000 mcg PO DAILY 04/02/24 02/02/25 History 1,000 mcg tablet fluticasone fur. 100 mcg-umeclid 1 inh inhalation DAILY 90 days #60 04/02/24 02/02/25 Rx 62.5 mcg-vilant 25 mcg ea inhalat.powder (Trelegy Ellipta) ipratropium 0.5 mg-albuterol 3 mg 3 ml inhalation QID PRN shortness 04/02/24 02/02/25 Rx (2.5 mg base)/3 mL nebulization of breath or wheezing 90 days #270 soln mL isosorbide mononitrate 60 mg 60 mg PO DAILY #30 tabs 01/07/25 02/02/25 Rx tablet,extended release 24 hr meloxicam 15 mg tablet 15 mg PO DAILY 01/07/25 02/02/25 History montelukast 10 mg tablet 10 mg PO HS 01/07/25 02/03/25 History carvedilol 25 mg tablet 25 mg PO BID 30 days #60 tabs 01/17/25 02/02/25 Rx furosemide 40 mg tablet 40 mg PO DAILY 30 days #30 tabs 01/17/25 02/02/25 Rx New Prescriptions to Start Prescriptions: Allergies Allergy/AdvReac Type Severity Reaction Status Date / Time No Known Allergies Allergy Verified 02/02/25 14:30 Assessment and Plan *Assessment and plan (1) Dyspnea: Status: Acute Qualifiers: Dyspnea type: other forms of dyspnea Qualified Code(s): R06.09 - Other forms of dyspnea Category: Medical Code(s): R06.00 - Dyspnea, unspecified (2) (HFpEF) heart failure with preserved ejection fraction: Status: Acute Qualifiers: Heart failure chronicity: chronic Qualified Code(s): I50.32 - Chronic diastolic (congestive) heart failure Category: Medical Code(s): I50.30 - Unspecified diastolic (congestive) heart failure (3) Iron deficiency anemia: Status: Acute Qualifiers: Iron deficiency anemia type: unspecified iron deficiency Qualified Code(s): D50.9 - Iron deficiency anemia, unspecified Category: Medical Code(s): D50.9 - Iron deficiency anemia, unspecified (4) Coronary artery disease: Status: Acute Qualifiers: Coronary Disease-Associated Artery/Lesion type: [place] artery [place] vs. transplanted heart: [place] heart Associated angina: with other forms of angina Qualified Code(s): I25.118 - Atherosclerotic heart disease of [place] coronary artery with other forms of angina pectoris Category: Medical Code(s): I25.10 - Atherosclerotic heart disease of [place] coronary artery without angina pectoris (5) Anemia: Status: Acute Qualifiers: Anemia type: iron deficiency Iron deficiency anemia type: chronic blood loss Qualified Code(s): D50.0 - Iron deficiency anemia secondary to blood loss (chronic) Category: Medical Code(s): D64.9 - Anemia, unspecified Plan Dyspnea Acute exacerbation of COPD Will defer management of antibiotics and steroids to pulmonology who is following Iron deficiency anemia Hemoglobin 7.2 trending up to 8.9 after iron transfusion and 1 unit of packed red blood cells Defer to primary service Acute on chronic HFpEF Right-sided heart cath January 2025 shows a hyperdynamic ventricle with increased biventricular filling pressures Echo from May 2024 shows a normal EF with mild RV dilation mild TR and RVSP of 25-30 Unable to repeat limited echo due to patient having difficulty laying back due to shortness of breath Continue Lasix 40 mg p.o. daily. Add Aldactone 25 mg daily and Jardiance 10 mg p.o. daily History of coronary disease Left heart catheterization 01/2025-medical management of coronary disease History of JENNY by Dr. Ya in [place] several years ago Continue Plavix 75 mg daily and atorvastatin 40 mg p.o. daily Hypertension Continue Coreg 25 mg p.o. twice daily, Lasix 40 mg p.o. daily, Imdur 60 mg daily, irbesartan 75 mg daily and Aldactone 25 mg p.o. daily CV summary 02/03/2025: Patient needs aggressive blood pressure control, please see medications as outlined. Continue to diurese patient with Lasix 40 mg and Aldactone 25 mg p.o. daily. Cardiology will sign off, please contact service for any additional concerns or needs. Cardiac meds: Coreg 25 mg p.o. twice daily Lasix 40 mg p.o. daily Imdur 60 mg p.o. daily Irbesartan 75 mg p.o. daily Plavix 75 mg p.o. daily Aldactone 25 mg p.o. daily Jardiance 10 mg p.o. daily
[2025-02-03] MEDS: EMPAGLIFLOZIN 10MG TABLET 10 MG PO (13:57)
[2025-02-03] MEDS: SPIRONOLACTONE 25MG TABLET 25 MG PO (13:58)
--- NOTE | 2025-02-03 14:03 | SW/DCPLANNER ---
Addendum entered by Kelsea Larose 02/04/25 14:57: [facility] is able to accept patient. Lion MICHAELS [employer] Coordinator Addendum entered by Kelsea Larose 02/04/25 14:11: Faxed patient's information to [facility] and will update when i hear back from them if they are able to accept or not. Lion MICHAELS [employer] Coordinator Addendum entered by Ngoc Harshal 02/04/25 13:11: Patient and daughter both present in room during my discussion this afternoon. Patient is no longer interested in placement and prefers to return home w/ daughter (present 24-7) and home health services (no preference). Daughter concurs w/ this plan and states that patient has all appropriate DME at home. I will continue to follow up w/ patient/family and MD. Discharge date is unknown at this time. Addendum entered by Ngoc Caputo 02/03/25 15:47: Daughter has called back requesting the following facilities: [facility] (no beds), [facility] in [place] (no beds) and [facility] (explained this facility is acute care facility). Daughter has requested that I email her a list of skilled facilities ([email or web address]). I will continue to follow up w/ patient and daughter. List emailed to daughter today. Addendum entered by Ngoc Caputo 02/03/25 15:22: I attempted to reach back out to daughter: no answer at this time. No voicemail available. Original Note: I spoke w/ patient this afternoon regarding plans once medically stable for discharge. I explained to patient that PT evaluation recommended SNF level of care at discharge. Patient requested that I contact her daughter (Betty) regarding discharge plans. I called and discussed SNF and options to Betty and she requested additional time to be able to investigate facilities prior to making any decisions. I will follow up w/ Betty later this afternoon regarding other facilities. Discharge date is unknown at this time.
--- NOTE | 2025-02-03 14:50 | PC.NURSE ---
Patient has had 200 mL urine output throughout shift. Primary RN bladder scanned patient at this time. Patient has 115mL in bladder. notified. No new orders received. Continuation of care plan.
[2025-02-03] MEDS: HYDROCODONE/APAP 5/325 MG TABLET 1 TAB PO ×2 (14:51→21:47)
[2025-02-03] MEDS: SODIUM CHLORIDE 3% 15ML NEB 3 ML IH (14:55)
[2025-02-04] VITALS (12 sets, daily range): BP systolic 115–153; BP diastolic 50–91; PULSE 68–82; RESP 12–22; TEMP 36.6–37; O2SAT 90–98; BMI 22.4
[2025-02-04] MEDS: IPRATROPIUM/ALBUTEROL 3 ML NEB IH ×2 (06:00→11:23)
[2025-02-04] MEDS: BUDESONIDE 0.5MG/2ML NEB 0.5 MG IH (06:00)
[2025-02-04 06:11] LABS: Hematocrit 27.9 % (37.0-47.0); Hemoglobin 8.1 g/dL (12.2-16.2); Immature Granulocytes % 0.6 %; Mean Corpuscular HGB Conc 29.0 g/dL (31.8-35.4); Mean Corpuscular Hemoglobin 22.6 pg (27.0-31.2); Mean Corpuscular Volume 77.9 fl (81-99); Nucleated Red Blood Cells % 0 %; Platelet Count 251 K/mm3 (142-424); Red Blood Count 3.58 M/mm3 (4.20-5.40); Red Cell Distribution Width-SD 54.5 fL; White Blood Count 8.4 K/mm3 (4.8-10.8)
--- NOTE | 2025-02-04 06:23 | PC.NURSE ---
Patient slept through the night. Was able to tolerate 1L NC throught the night. Humidification added for patient comfort due to complaints of dry nose. Only one complaint of pain with one PRN pain medication given. Vital signs remained stable through the night.
[2025-02-04 06:25] LABS: Alanine Aminotransferase 11 U/L (12-78); Albumin Level 4.0 g/dl (3.5-5.0); Albumin/Globulin Ratio 1.7 (1.1-1.8); Alkaline Phosphatase 99 U/L (38-126); Anion Gap 8.4 mEq/L (5-15); Aspartate Amino Transferase 21 U/L (14-36); Bilirubin,Total 0.4 mg/dl (0.2-1.3); Blood Urea Nitrogen 20 mg/dl (7-17); Calcium 8.9 mg/dl (8.4-10.2); Carbon Dioxide 32 mmol/L (22.0-30.0); Chloride 99 mmol/L (98-107); Creatinine Clearance Estimated 41 mL/min (50-200); Creatinine,Serum 0.90 mg/dl (0.52-1.04); Estimated Glomerular Filt Rate 61 ml/min (>60); GFR (African American) 74 ML/MIN (>60); Globulin 2.4 g/dL (1.3-3.2); Glucose 112 mg/dl (74-100); Magnesium 2.4 mg/dl (1.6-2.3); Potassium 4.4 mmoL/L (3.5-5.1); Sodium 135 mmol/L (136-145); Total Protein,Serum 6.4 g/dl (6.3-8.2)
[2025-02-04] MEDS: CARVEDILOL 25MG TABLET 25 MG PO (08:26)
[2025-02-04] MEDS: CLOPIDOGREL 75MG TAB 75 MG PO (08:26)
[2025-02-04] MEDS: EMPAGLIFLOZIN 10MG TABLET 10 MG PO (08:27)
[2025-02-04] MEDS: SERTRALINE 100MG TABLET 200 MG PO (08:27)
[2025-02-04] MEDS: ISOSORBIDE MONO 60MG TAB.ER.24H 60 MG PO (08:27)
[2025-02-04] MEDS: FUROSEMIDE 40 MG TABLET PO (08:27)
[2025-02-04] MEDS: IRBESARTAN 75MG TABLET 75 MG PO (08:27)
[2025-02-04] MEDS: SPIRONOLACTONE 25MG TABLET 25 MG PO (08:29)
--- NOTE | 2025-02-04 08:30 | PC.NURSE ---
Primary RN encouraged patient to get up to chair. Patient refused at this time. Continuation of care plan.
--- NOTE | 2025-02-04 10:12 | PC.NURSE ---
Report given to LOKESH Holm on [facility].
[2025-02-04] MEDS: HYDROCODONE/APAP 5/325 MG TABLET 1 TAB PO (10:19)
--- NOTE | 2025-02-04 10:25 | PC.NURSE ---
Primary RN asks if patient would like RN to update daughter of new room. Patient refused at this time. Continuation of care plan.
--- NOTE | 2025-02-04 10:29 | PC.NURSE ---
patient to [facility] room 201 via wheelchair @[id number] with RN and SRNA
--- NOTE | 2025-02-04 10:32 | PC.NURSE ---
Pt arrived to med/surg floor @ this time
--- NOTE | 2025-02-04 11:57 | XR_ITS ---
FINAL REPORT CLINICAL HISTORY: Precordial chest pain COMPARISON: 04/04/2024 FINDINGS: The heart size is normal. The mediastinum is normal. Mild chronic changes are noted at the lung bases. There is no focal infiltrate or edema. There are no pleural effusions. There is no pneumothorax. There is no osseous abnormality. IMPRESSION: No acute cardiopulmonary process Reviewed, Interpreted and Dictated by Elmo Valle MD Transcribed by Yue Prieto Authenticated and . [facility]
[2025-02-04 12:41] LABS: Troponin I < 0.01 ng/ml (0.00-0.034)
--- NOTE | 2025-02-04 13:54 | EXP.DC.SUM ---
General Admission date:: 02/02/25 Discharge date: 02/04/25 HPI HPI HPI: Ms. Santiago is a 74-year-old female with history of COPD on 3 L oxygen at baseline, HFpEF, hypertension, mood disorder. Presented to the ER with worsening dyspnea and shortness of breath over the past 2 to 3 days per her report. Has been having some chest tightness. Denies any nausea or vomiting. Initially placed on 5 L when EMS picked her up but O2 sats were only at 90%. On arrival to the ED, concern for possible hypercapnia versus respiratory distress. Was placed on BiPAP temporarily. Blood pressure severely elevated. Concern for acute HFpEF exacerbation and malignant hypertension. Medicine consulted for admission and further management. On my evaluation, patient cannot complete full sentences without having to take her breath. Appears in moderate distress. Sats improved however and on 5 L at this time. Diuresing well. Received Lasix in the ED. Hospital Course Hospital Course Hospital Course: Ms. Santiago is a 74-year-old female with history of chronic hypoxemic respiratory failure, COPD, HFpEF, CAD, hypertension, hyperlipidemia and cachexia. She presented to the ER with acute worsening of shortness of breath. Found to be hypoxic and in respiratory distress. Blood pressure severely elevated. Also found to be anemic with hemoglobin of 7.2. Discussed case with ER physician, request admission for further management of respiratory failure and malignant hypertension. Initiated on nitroglycerin drip. I decided to admit for further management. Admitted to the ICU. Blood pressures remain with systolics 190s to 200s. High risk for decompensation. Pulmonology and cardiology evaluated during admission. Showed improvement with treatment of her high blood pressure. Risks resolved and patient became stable on oral regimen for discharge home. Problems addressed as follows: Acute on chronic hypoxemic respiratory failure: Severe exacerbation of chronic problem Acute exacerbation of COPD: - Patient presented with severe acute respiratory failure. Concern for severe exacerbation of her COPD. Initiated on antibiotics and steroids. Pulmonology consulted to assist with care. Treated during admission with azithromycin and ceftriaxone for COPD/pneumonia. Showed improvement in respiratory status with antibiotics and breathing treatments along with improvement in blood pressure. Continue supplemental oxygen for goal sats greater 90%. At home normally wears 2 to 3 L, able to wean to baseline oxygen by discharge. Continue nebs at home along with p.o. steroids prednisone 40 mg daily to complete 5 days total. White count remained normal at 8.4. Continue azithromycin 500 mg daily p.o. to complete treatment for COPD exacerbation. Acute on chronic HFpEF Malignant hypertension Hyperlipidemia -BNP elevated at 1999, initiated on Lasix during admission. Showing good response with negative volume status. Blood pressure improving. Review of chart shows echo From May with preserved EF 55% and mild elevation in RVSP. Heart cath performed 2 weeks ago with patent coronaries. Right atrial pressure of 20 mmHg. Did not have severe pulmonary hypertension. Did have hypertension however with blood pressure 220/110. Needs better control of her hypertension. Discussed case with cardiology, continue adjustment of medications for hypertension. Continue medications as follows: Coreg 25 mg p.o. twice daily Lasix 40 mg p.o. daily Imdur 60 mg p.o. daily Irbesartan 75 mg p.o. daily Plavix 75 mg p.o. daily Aldactone 25 mg p.o. daily Jardiance 10 mg p.o. daily - Kidney function normal with BUN 20, creatinine 0.9. Potassium 4.4 magnesium 2.4 on day of discharge Iron deficient anemia: Hemoglobin 7.2 on admission, responded well to transfusion. Hemoglobin stable at 8 on day of discharge. Received 1 dose of IV Venofer 200 mg. Would benefit from completing full 1 g course as an outpatient Mood disorder: Continue Wellbutrin 150 mg twice daily, continue Zoloft 200 mg daily Total time spent on discharge 32 minutes in counseling, documentation, chart review, and direct care with patient. Exam Data for Last 24 hours Vital signs and Labs for Last 24 Hours: Temp Pulse Resp BP Pulse Ox O2 Del Method O2 Flow Rate 98.2 F 71 18 129/64 98 Nasal Cannula 1 02/04/25 12:00 02/04/25 12:00 02/04/25 12:02/04/25 12:00 02/04/25 12:00 02/04/25 13:00 02/04/25 13:00 Laboratory Results - last 24 hr 02/04/25 04:49: WBC 8.4, RBC 3.58 L, Hgb 8.1 L, Hct 27.9 L, MCV 77.9 L, MCH 22.6 L, MCHC 29.0 L, RDW 19.2 H, Plt Count 251, MPV 10.7 H, Neut % (Auto) 80.5 H, Lymph % (Auto) 11.8, Cameron % (Auto) 7.0, Eos % (Auto) 0.0 L, Baso % (Auto) 0.1, Neut # (Auto) 6.7, Lymph # (Auto) 1.0, Cameron # (Auto) 0.6, Eos # (Auto) 0.0, Baso # (Auto) 0.0, Sodium 135 L, Potassium 4.4 D, Chloride 99, Carbon Dioxide 32 H, Anion Gap 8.4, BUN 20 H, Creatinine 0.90, Estimated Creat Clear 41, Estimated GFR 61, Est GFR ( Amer) 74, Glucose 112 H, Calcium 8.9, Magnesium 2.4 H D, Total Bilirubin 0.4, AST 21, ALT 11 L, Alkaline Phosphatase 99, Total Protein 6.4, Albumin 4.0, Globulin 2.4, Albumin/Globulin Ratio 1.7 02/04/25 12:10: Troponin I < 0.01 I & O for Last 24 hours: Intake & Output 02/01/25 02/02/25 02/03/25 02/04/25 23:59 23:59 23:59 23:59 Intake Total 410.850 / 655.001 5689 / 1679 810 / 810 Output Total 1960 / 1960 700 / 700 875 / 875 Balance -1549.150 / -1499.150 649 / 979 -65 / -65 Weight 49.895 kg 51.664 kg 53.796 kg Microbiology Reports for the Last 24 Hours: Microbiology 02/02/25 17:56 Anus CRE Surveillance Culture - Final Negative Constitutional Constitutional: no acute distress, cachectic, chronically ill appearing and cooperative *Routine HEENT Exam Head: Present normocephalic Eye: Present EOMI and PERRL ENT: Present mucous membranes moist *Routine Neck Exam Neck: Present supple; Absent lymphadenopathy *Routine Respiratory Exam Respiratory: Absent rhonchi, wheezes or crackles *Routine Cardiovascular Exam Cardiovascular: Present RRR *Routine Abdominal Exam Abdominal: Present soft and normoactive bowel sounds; Absent tenderness *Routine Rectal Exam Patient deferred: visual exam *Routine Exam Patient deferred: external exam *Routine Extremities Exam Extremities: Absent cyanosis, clubbing or edema *Routine Skin Exam Skin: Present intact and warm; Absent rash *Routine Neurological Exam Neurological: Present alert, oriented X3 and moving all extremities; Absent altered mental status Results Data Completed and Pending Labs on day of discharge: Labs from last 24 hours 02/04/25 02/04/25 12:10 04:49 WBC 8.4 RBC 3.58 L Hgb 8.1 L Hct 27.9 L MCV 77.9 L MCH 22.6 L MCHC 29.0 L RDW 19.2 H Plt Count 251 MPV 10.7 H Neut % (Auto) 80.5 H Lymph % (Auto) 11.8 Cameron % (Auto) 7.0 Eos % (Auto) 0.0 L Baso % (Auto) 0.1 Neut # (Auto) 6.7 Lymph # (Auto) 1.0 Cameron # (Auto) 0.6 Eos # (Auto) 0.0 Baso # (Auto) 0.0 Sodium 135 L Potassium 4.4 D Chloride 99 Carbon Dioxide 32 H Anion Gap 8.4 BUN 20 H Creatinine 0.90 Estimated Creat Clear 41 Estimated GFR 61 Est GFR ( Amer) 74 Glucose 112 H Calcium 8.9 Magnesium 2.4 H D Total Bilirubin 0.4 AST 21 ALT 11 L Alkaline Phosphatase 99 Troponin I < 0.01 Total Protein 6.4 Albumin 4.0 Globulin 2.4 Albumin/Globulin Ratio 1.7 DS: Diagnosis Discharge Diagnosis (1) (HFpEF) heart failure with preserved ejection fraction: Status: Acute Code(s): I50.30 - Unspecified diastolic (congestive) heart failure Qualifiers: Heart failure chronicity: chronic Qualified Code(s): I50.32 - Chronic diastolic (congestive) heart failure (2) Acute exacerbation of CHF (congestive heart failure): Status: Acute Code(s): I50.9 - Heart failure, unspecified (3) Hypertension: Status: Acute Code(s): I10 - Essential (primary) hypertension Qualifiers: Hypertension type: primary hypertension Qualified Code(s): I10 - Essential (primary) hypertension (4) Hyperlipidemia: Status: Acute Code(s): E78.5 - Hyperlipidemia, unspecified Qualifiers: Hyperlipidemia type: mixed hyperlipidemia Qualified Code(s): E78.2 - Mixed hyperlipidemia (5) Chronic bronchitis: Status: Acute Code(s): J42 - Unspecified chronic bronchitis (6) Pulmonary hypertension: Status: Acute Code(s): I27.20 - Pulmonary hypertension, unspecified (7) Pulmonary emphysema: Status: Acute Code(s): J43.9 - Emphysema, unspecified Qualifiers: Emphysema type: unspecified Qualified Code(s): J43.9 - Emphysema, unspecified (8) Iron deficiency anemia: Status: Acute Code(s): D50.9 - Iron deficiency anemia, unspecified Qualifiers: Iron deficiency anemia type: unspecified iron deficiency Qualified Code(s): D50.9 - Iron deficiency anemia, unspecified (9) Dependence on supplemental oxygen: Status: Acute Code(s): Z99.81 - Dependence on supplemental oxygen (10) Chronic respiratory failure with hypoxia: Status: Acute Code(s): J96.11 - Chronic respiratory failure with hypoxia Meds Home Medications and Allergies Home Medications ?Medication ?Instructions ?Recorded ?Confirmed ?Type atorvastatin 40 mg tablet 40 mg PO HS 12/31/23 02/02/25 History bupropion HCl 150 mg tablet,12 hr 150 mg PO BID 12/31/23 02/02/25 History sustained-release clopidogrel 75 mg tablet 75 mg PO DAILY 12/31/23 02/02/25 History sertraline 100 mg tablet 200 mg PO DAILY 12/31/23 02/02/25 History rivastigmine 4.6 mg/24 hour 4.6 mg transdermal DAILY 03/24/24 02/02/25 History transdermal patch albuterol sulfate 90 mcg/actuation 2 inh inhalation QID PRN shortness 04/02/24 02/02/25 Rx aerosol inhaler of breath or wheezing 90 days #8.5 grams cyanocobalamin (vitamin B-12) 1,000 mcg PO DAILY 04/02/24 02/02/25 History 1,000 mcg tablet fluticasone fur. 100 mcg-umeclid 1 inh inhalation DAILY 90 days #60 04/02/24 02/02/25 Rx 62.5 mcg-vilant 25 mcg ea inhalat.powder (Trelegy Ellipta) isosorbide mononitrate 60 mg 60 mg PO DAILY #30 tabs 01/07/25 02/02/25 Rx tablet,extended release 24 hr meloxicam 15 mg tablet 15 mg PO DAILY 01/07/25 02/02/25 History montelukast 10 mg tablet 10 mg PO HS 01/07/25 02/03/25 History carvedilol 25 mg tablet 25 mg PO BID 30 days #60 tabs 01/17/25 02/02/25 Rx furosemide 40 mg tablet 40 mg PO DAILY 30 days #30 tabs 01/17/25 02/02/25 Rx azithromycin 500 mg tablet 500 mg PO DAILY 3 days #3 tabs 02/04/25 Rx empagliflozin 10 mg tablet 10 mg PO DAILY 30 days #30 tabs 02/04/25 Rx (Jardiance) ipratropium 0.5 mg-albuterol 3 mg 3 ml inhalation Q4-6H PRN 02/04/25 02/02/25 Rx (2.5 mg base)/3 mL nebulization shortness of breath or wheezing 90 soln days #270 mL irbesartan 75 mg tablet 75 mg PO DAILY 30 days #30 tabs 02/04/25 Rx prednisone 20 mg tablet 40 mg (2 x 20 mg) PO DAILY 3 days 02/04/25 Rx #6 tabs spironolactone 25 mg tablet 25 mg PO DAILY 30 days #30 tabs 02/04/25 Rx New Prescriptions to Start Prescriptions: Juan Manuel Guevara empagliflozin [Jardiance] Juan Manuel Stringer irbesartan Juan Manuel Stringer prednisone Juan Manuel Stringer spironolactone Juan Manuel Stringer Allergies Allergy/AdvReac Type Severity Reaction Status Date / Time No Known Allergies Allergy Verified 02/02/25 14:30 Discharge Plan Disposition Patient Disposition: Home Health Service Condition: Fair Discharge Order Discharge Orders: Discharge Order (Routine); Ordered 02/04/25 Ordered By: Juan Manuel Stringer Follow up Plan Follow up with: Lissette Watkins APRN [Nurse Practitioner, Cardiology] - 02/12/25 10:15 am ProviderNitesh MD [Primary Care Provider, Medical] - Enter time for follow up Referral Note: Please call primary care office for follow up appointment Nora Vega MD [Physician, Pulmonology] - 02/26/25 1:00 pm Referral Note: Prescriptions/Medication Reconciliation: New prednisone 20 mg Tablet 40 mg PO DAILY 3 Days Qty: 6 0RF spironolactone 25 mg Tablet 25 mg PO DAILY 30 Days Qty: 30 0RF irbesartan 75 mg Tablet 75 mg PO DAILY 30 Days Qty: 30 0RF Jardiance 10 mg Tablet 10 mg PO DAILY 30 Days Qty: 30 0RF azithromycin 500 mg tablet 500 mg PO DAILY 3 Days Qty: 3 0RF Continued Trelegy Ellipta 100-62.5-25 mcg blister with device 1 inh inhalation DAILY 90 Days Qty: 60 3RF albuterol sulfate 90 mcg/actuation HFA aerosol inhaler 2 inh inhalation QID PRN (Reason: shortness of breath or wheezing) 90 Days Qty: 8.5 2RF cyanocobalamin (vitamin B-12) 1,000 mcg tablet 1,000 mcg PO DAILY Patient Comments: TAKE ONE (1) TABLET EVERY DAY BY ORAL ROUTE DIRECTED FOR 30 DAYS. meloxicam 15 mg tablet 15 mg PO DAILY Patient Comments: TAKE 1 TABLET BY MOUTH ONCE DAILY FOR 90 DAYS montelukast 10 mg tablet 10 mg PO HS Patient Comments: TAKE 1 TABLET BY MOUTH ONCE DAILY FOR 90 DAYS isosorbide mononitrate 60 mg tablet extended release 24 hr 60 mg PO DAILY Qty: 30 3RF rivastigmine 4.6 mg/24 hour patch 24 hour 4.6 mg transdermal DAILY carvedilol 25 mg Tablet 25 mg PO BID 30 Days Qty: 60 3RF Rx Instructions: must administer with a meal/food furosemide 40 mg Tablet 40 mg PO DAILY 30 Days Qty: 30 3RF atorvastatin 40 mg tablet 40 mg PO HS bupropion HCl 150 mg tablet sustained-release 12 hr 150 mg PO BID sertraline 100 mg tablet 200 mg PO DAILY clopidogrel 75 mg tablet 75 mg PO DAILY Changed ipratropium-albuterol 0.5 mg-3 mg(2.5 mg base)/3 mL solution for nebulization 3 ml inhalation Q4-6H PRN (Reason: shortness of breath or wheezing) 90 Days Qty: 270 3RF Problem Reconciliation Problems Reviewed?: Yes Patient Discharge Instructions ACTIVITY: Continue current activity DIET: continue same diet Patient Instructions: Stop Light Pneumonia, Stop Light Heart Failure Print Language: Jamaican Providers Primary Care Provider: Provider,Referral Admit Provider: Juan Manuel Stringer Attending Provider: Juan Manuel Stringer
--- NOTE | 2025-02-04 14:03 | ECG_ITS ---
APPROVED REPORT Exam: Resting ECG HR:67 bpm ECG Measurements Heart Rate 67 AXES OK 125 P 79 QRSd 85 QRS 69 QT 378 T 55 QTc 394 Conclusion SINUS RHYTHM NORMAL ECG UNCONFIRMED REPORT Electronically signed by : Kumar Mooney MD 02/05/2025 08:13:13
--- NOTE | 2025-02-05 10:30 | SW/DCPLANNER ---
Spoke with patient's daughter on the phone. Patient's daughter stated that her mother is doing well. Patient's daughter stated that they are aware of her upcoming appointments. Patient's daughter stated that they were able to get her mothers medicine picked up from [facility]. Patient's daughter stated that she has no concerns or questions at this time. Lion Robles
== END 2025-02-04 17:18 | disposition home health service (06) | DRG 291 ==
LOC: ER 11:44 → ICU 13:27 → 2ND 02-04 10:22
PROVIDERS: Admitting Provider Internal Medicine Adolescent Medicine; Emergency Provider Emergency Medicine; Visit Provider Internal Medicine Adolescent Medicine
DX: I11.0 Hypertensive heart disease with heart failure (principal); I50.33 Acute on chronic diastolic (congestive) heart failure; J96.21 Acute and chronic respiratory failure with hypoxia; J18.9 Pneumonia, unspecified organism; J44.1 Chronic obstructive pulmonary disease with (acute) exacerbation; J44.0 Chronic obstructive pulmonary disease with (acute) lower respiratory infection; E87.4 Mixed disorder of acid-base balance; I16.1 Hypertensive emergency; E78.2 Mixed hyperlipidemia; J43.2 Centrilobular emphysema; I27.20 Pulmonary hypertension, unspecified; I25.10 Atherosclerotic heart disease of native coronary artery without angina pectoris; D50.9 Iron deficiency anemia, unspecified; F39 Unspecified mood [affective] disorder; Z99.81 Dependence on supplemental oxygen; Z95.5 Presence of coronary angioplasty implant and graft; Z87.891 Personal history of nicotine dependence; Z79.899 Other long term (current) drug therapy; Z79.02 Long term (current) use of antithrombotics/antiplatelets
CPT/HCPCS: 36415; 36430; 71045; 71275; 80053; 82803; 83735; 83880; 84484; 85014; 85018; 85025; 86803; 86850; 87081; 87389; 87633; 93005; 94640; 94761; 97162; J0456; J0696; J1450; J1650; J1756; J1938; J3475; J7050; P9016; Q9967

== ENCOUNTER 2025-02-12 10:29 | Inpatient (IN) | payer MEDICARE, SELFPAY ==
[2025-02-12] VITALS (26 sets, daily range): BP systolic 113–184; BP diastolic 47–94; PULSE 64–99; RESP 15–29; TEMP 36–37.6; O2SAT 90–100; BMI 19.5; BMI 21.9
--- NOTE | 2025-02-12 10:30 | [facility].EDGENADL ---
Discharge Plan Disposition Patient Disposition: Admitted Condition: Critical Clinical Impressions Clinical Impression: Acute on chronic respiratory failure with hypoxia and hypercapnia, Acute on chronic heart failure with preserved ejection fraction (HFpEF), COPD exacerbation, Hypomagnesemia, Hypocalcemia Discharge ED Provider: Kevin Fabian General Adult HPI <TESHA Keyes - Last Filed: 02/12/25 12:38> General Chief complaint: Shortness of Breath/Dyspnea Stated complaint: SOA Time Seen by Provider: 02/12/25 10:30 History of Present Illness HPI narrative: Patient presents for evaluation of acute respiratory distress. Patient has longstanding history of coronary artery disease preserved ejection fraction heart failure pulmonary artery hypertension COPD on chronic 3 L by nasal cannula iron deficiency anemia hyperlipidemia hypertension. She was recently admitted on 02/02/2025 for CHF COPD and ultimately discharged the next day after pulmonology and cardiology consults. Patient arrives by EMS after being found satting in the 60s at the scene on her nasal cannula. Patient's daughter gives collateral history that she is supposed to be on 2 to 3 L however they have had her up to 5 L over the last several days. Patient herself can respond but is still breathless she cannot complete full sentences. Patient denies fever chest pain hemoptysis hematochezia melena nausea vomit diarrhea. Related Data Home Medications ?Medication ?Instructions ?Recorded ?Confirmed atorvastatin 40 mg tablet 40 mg PO HS 12/31/23 02/12/25 clopidogrel 75 mg tablet 75 mg PO DAILY 12/31/23 02/12/25 sertraline 100 mg tablet 200 mg PO DAILY 12/31/23 02/12/25 cyanocobalamin (vitamin B-12) 1,000 mcg PO DAILY 04/02/24 02/12/25 1,000 mcg tablet meloxicam 15 mg tablet 15 mg PO DAILY 01/07/25 02/12/25 montelukast 10 mg tablet 10 mg PO HS 01/07/25 02/12/25 albuterol sulfate 90 mcg/actuation 2 inh inhalation QIDP PRN 02/12/25 02/12/25 aerosol inhaler shortness of breath or wheezing Previous Rx's ?Medication ?Instructions ?Recorded fluticasone fur. 100 mcg-umeclid 1 inh inhalation DAILY 90 days #60 04/02/24 62.5 mcg-vilant 25 mcg ea inhalat.powder (Trelegy Ellipta) isosorbide mononitrate 60 mg 60 mg PO DAILY #30 tabs 01/07/25 tablet,extended release 24 hr carvedilol 25 mg tablet 25 mg PO BID 30 days #60 tabs 01/17/25 furosemide 40 mg tablet 40 mg PO DAILY 30 days #30 tabs 01/17/25 empagliflozin 10 mg tablet 10 mg PO DAILY 30 days #30 tabs 02/04/25 (Jardiance) irbesartan 75 mg tablet 75 mg PO DAILY 30 days #30 tabs 02/04/25 spironolactone 25 mg tablet 25 mg PO DAILY 30 days #30 tabs 02/04/25 Allergies Allergy/AdvReac Type Severity Reaction Status Date / Time No Known Allergies Allergy Verified 02/02/25 14:30 [facility] <TESHA Keyes - Last Filed: 02/12/25 12:38> [facility] Disclaimer: The information contained in this section may have been updated after the patient was seen, as this information can be updated by other users. Medical History (Updated 02/12/25 @ 12:05 by TESHA Keyes) CAP (community acquired pneumonia) Other forms of dyspnea Pulmonary hypertension Hyperlipidemia Hypertension Dyspnea Atypical angina Chronic respiratory failure with hypoxia Encounter for screening for malignant neoplasm of lung Smoking greater than 30 pack years Pulmonary emphysema COPD exacerbation BMI less than 19,adult (HFpEF) heart failure with preserved ejection fraction Tobacco dependence Dependence on supplemental oxygen Coronary artery disease Iron deficiency anemia COPD (chronic obstructive pulmonary disease) Surgical History Hx of esophagogastroduodenoscopy History of colonoscopy History of hysterectomy History of heart artery stent S/P cardiac catheterization Family History Father Alzheimer disease Mother Stroke Social History Smoking Status: Former smoker tobacco type: cigarettes packs per day: 1 years smoked: 60 smoking status stop date: 3 years ago alcohol intake: former current occupational status: other Travel in the last 8 weeks?: None Have you lived/traveled outside [place] in past 30 days?: No Contact w/someone who lives/traveled outside US past 30 days?: No Exposure to someone with infectious disease in past 14 days?: No Do you have a fever (greater than 100.4 F or 38 C)?: No Have you tested positive for COVID-19?: No Exposed to someone with COVID-19 in past 14 days?: No Do you have a sore throat?: No Do you have a cough?: No Do you have any weakness?: No Do you have any diarrhea?: No Are you experiencing any unusual bleeding?: No Do you have any muscle aches/pain?: No Do you have any abdominal pain?: No Are you experiencing loss of taste or smell?: No Other Medical History Have you received the Flu Vaccine for this season: No Have you received the Pneumonia Vaccine: No <TESHA Keyes - Last Filed: 02/12/25 12:38> ROS Obtained: Yes Systems reviewed as appropriate & no additional complaints except as documented Physical Exam <TESHA Keyes - Last Filed: 02/12/25 12:38> General General appearance: alert and in distress Respiratory Respiratory exam: Present respiratory distress, accessory muscle use and prolonged expiratory phase Cardiovascular Cardiovascular exam: Present tachycardia Neurological Exam Neurological exam: Present alert and oriented X3 Medical Decision Making <TESHA Keyes - Last Filed: 02/12/25 12:38> Medical Records Medical records reviewed: Yes I reviewed the patient's medical records. Screening: Per USPSTF and CDC recommendations, given the prevalence of disease in our region, it is our hospital?s policy to screen for HIV and viral Hepatitis for all patients aged 18 and over and those with ongoing risk factors. Vasquez Inquiry Pt receiving controlled substance: No Vital Signs: 02/12/25 10:40 02/12/25 10:43 02/12/25 10:45 Temperature Temperature Source Pulse Rate 87 74 Pulse Rate [Right Radial] Respiratory Rate 21 Blood Pressure 184/90 H Blood Pressure [Right Arm] Blood Pressure Mean 107 Blood Pressure Mean [Right Arm] Blood Pressure Source [Right Arm] Blood Pressure Position [Right Arm] 02 Sat by Pulse Oximetry 99 Oxygen Delivery Method BiPAP Fraction of Inspired Oxygen 02/12/25 10:45 02/12/25 11:00 02/12/25 11:06 Temperature 96.8 F L Temperature Source Axillary Pulse Rate 79 75 Pulse Rate [Right Radial] 99 H Respiratory Rate 23 26 H Blood Pressure 162/89 H Blood Pressure [Right Arm] 184/90 H Blood Pressure Mean 109 Blood Pressure Mean [Right Arm] 121 Blood Pressure Source [Right Arm] Automatic Cuff Blood Pressure Position [Right Arm] Supine 02 Sat by Pulse Oximetry 99 99 Oxygen Delivery Method BiPAP Non-Rebreather Fraction of Inspired Oxygen 02/12/25 11:30 02/12/25 12:02 Temperature 98.4 F 98.4 F Temperature Source Pulse Rate 67 64 Pulse Rate [Right Radial] Respiratory Rate 18 17 Blood Pressure 146/73 H 124/56 L Blood Pressure [Right Arm] Blood Pressure Mean 97 81 Blood Pressure Mean [Right Arm] Blood Pressure Source [Right Arm] Blood Pressure Position [Right Arm] 02 Sat by Pulse Oximetry 100 99 Oxygen Delivery Method BiPAP Fraction of Inspired Oxygen Lab Data Lab results reviewed: Yes I reviewed the patient's lab results. Lab Results 02/12/25 10:31: VBG pH 7.16 L, VBG pCO2 60.6 H, VBG pO2 177.0 H, VBG HCO3 20.9 L, VBG Total CO2 22.8 L, VBG O2 Saturation 99.0 H, VBG Base Excess -7.8 L, VBG Lactic Acid 4.4 H 02/12/25 10:35: WBC 14.4 H, RBC 3.99 L, Hgb 9.5 L, Hct 32.8 L, MCV 82.2, MCH 23.8 L, MCHC 29.0 L, RDW 21.9 H, Plt Count 364, MPV 10.0, Neut % (Auto) 43.9, Lymph % (Auto) 41.6, [place] % (Auto) 8.7, Eos % (Auto) 4.3, Baso % (Auto) 0.5, Neut # (Auto) 6.3, Lymph # (Auto) 6.0 H, [place] # (Auto) 1.3 H, Eos # (Auto) 0.6 H, Baso # (Auto) 0.1, Total Counted 100, Neutrophils % (Manual) 52, Lymphocytes % (Manual) 37, Monocytes % (Manual) 5, Eosinophils % (Manual) 5 H, Basophils % (Manual) 1.0, Platelet Estimate Normal, Hypochromasia 2+, Tear Drop Cells 1+, Ovalocytes 1+, Orma Cells 1+, Schistocytes 1+, D-Dimer 0.58 H, Sodium 140, Potassium 3.5, Chloride 103, Carbon Dioxide 23, Anion Gap 17.5 H, BUN 14, Creatinine 1.20 H, Estimated GFR 44 L, Est GFR ( Amer) 53 L, Glucose 201 H, Calcium 7.8 L, Magnesium 1.3 L, Total Bilirubin 0.3, AST 58 H, ALT 28, Alkaline Phosphatase 119, Troponin I < 0.01, Total Protein 6.3, Albumin 3.8, Globulin 2.5, Albumin/Globulin Ratio 1.5, Procalcitonin 0.100 02/12/25 11:20: Urine Color Yellow, Urine Appearance Clear, Urine pH 6.0, Ur Specific [place] 1.010, Urine Protein Negative, Urine Glucose (UA) Negative, Urine Ketones Negative, Urine Blood Negative, Urine Nitrate Negative, Urine Bilirubin Negative, Urine Urobilinogen 0.2, Ur Leukocyte Esterase Negative, Urine RBC None, Urine WBC None, Ur Squamous Epith Cells None, Urine Bacteria None 02/12/25 10:35 02/12/25 10:35 Orders (Tests/Meds): ED MEDICATIONS Generic Name Dose Route Start Last Admin Trade Name Freq PRN Reason Stop Dose Admin Acetaminophen 650 mg 02/12/25 11:57 Acetaminophen 325mg Tab PO 03/14/25 11:56 Q4HP PRN Fever or Mild Pain (1-3) Albuterol/Ipratropium 3 ml 02/12/25 14:00 Ipratropium/Albuterol 3 Ml [facility] 03/14/25 13:59 Q4RT [facility] Budesonide 0.5 mg 02/12/25 18:00 Budesonide 0.5mg/2ml [facility] 03/14/25 17:59 BIDRT [facility] Enoxaparin Sodium 40 mg 02/13/25 09:00 Enoxaparin 40mg/0.4ml Syringe SUBCUT 03/15/25 08:59 DAILY GRACIE Ceftriaxone Sodium 1 gm/ 50 mls @ 100 mls/hr 02/12/25 11:00 02/12/25 11:34 Sodium Chloride IV 02/22/25 10:59 100 mls/hr Q24H GRACIE Administration Azithromycin 500 mg/ Sodium 250 mls @ 250 mls/hr 02/12/25 11:00 02/12/25 11:48 Chloride IV 02/22/25 10:59 250 mls/hr Q24H GRACIE Administration Calcium Gluconate/Sodium Chloride 2 gm in 100 mls @ 50 mls/hr 02/12/25 11:05 02/12/25 11:50 Calcium Gluconate 2,000mg/100ml Nacl Premix IV 02/12/25 13:04 50 mls/hr ONCE ONE Administration Sodium Nitroprusside 50 mg/ 252 mls @ 4.115 mls/hr 02/12/25 11:30 Dextrose IV 03/14/25 11:29 .Q24H GRACIE Protocol 0.3 MCG/KG/MIN Ondansetron HCl 4 mg 02/12/25 11:57 Ondansetron 4mg/2ml Vial IV 03/14/25 11:56 Q8HP PRN Nausea Sodium Chloride 10 ml 02/12/25 11:35 Sodium Chloride 0.9% 10ml Flush Syringe IV 03/14/25 11:34 NEEDED PRN Maintain IV Site Discontinued Medications Generic Name Dose Route Start Last Admin Trade Name Freq PRN Reason Stop Dose Admin Albuterol/Ipratropium 9 ml 02/12/25 10:30 02/12/25 10:58 Ipratropium/Albuterol 3 Ml Neb IH 02/12/25 10:31 9 ml ONCE ONE Administration Furosemide 80 mg 02/12/25 10:45 02/12/25 11:23 Furosemide 100mg/10ml Vial IV 02/12/25 10:46 Not Given ONCE ONE Magnesium Sulfate 2 gm in 50 mls @ 50 mls/hr 02/12/25 10:30 02/12/25 10:38 Magnesium Sulfate 2gm/50ml Premix IV 02/12/25 11:29 50 mls/hr ONCE ONE Administration ORDERS Category Date Time Status Cardiology Consult [Consult to Cardiology] [CONS] Cons 02/12/25 12:11 Active Routine Pulmonology Consult [Consult to Pulmonology] [CONS] Cons 02/12/25 12:11 Active Routine POCUS Point of Care (ER Only) Stat Exams 02/12/25 10:34 Completed XR chest portable Stat Exams 02/12/25 10:32 Completed BNP [NT Pro Brain Natriuretic Pep.] Stat Lab 02/12/25 10:35 Results CBC w/Auto Diff [Complete Blood Count Auto Diff] Stat Lab 02/12/25 10:35 Completed CMP [Comprehensive Metabolic Panel] Stat Lab 02/12/25 10:35 Completed Complete Blood Count Auto Diff AMLAB Lab 02/13/25 06:00 Ordered Complete Blood Count Auto Diff AMLAB Lab 02/14/25 06:00 Ordered Complete Blood Count Auto Diff AMLAB Lab 02/15/25 06:00 Ordered Complete Blood Count Auto Diff AMLAB Lab 02/16/25 06:00 Ordered Complete Blood Count Auto Diff AMLAB Lab 02/17/25 06:00 Ordered Comprehensive Metabolic Panel AMLAB Lab 02/13/25 06:00 Ordered Comprehensive Metabolic Panel AMLAB Lab 02/14/25 06:00 Ordered Comprehensive Metabolic Panel AMLAB Lab 02/15/25 06:00 Ordered Comprehensive Metabolic Panel AMLAB Lab 02/16/25 06:00 Ordered Comprehensive Metabolic Panel AMLAB Lab 02/17/25 06:00 Ordered D-Dimer Stat Lab 02/12/25 10:35 Completed Full Resp Panel w/COVID ([facility]) Routine Lab 02/12/25 11:00 Received Magnesium AMLAB Lab 02/13/25 06:00 Ordered Magnesium AMLAB Lab 02/14/25 06:00 Ordered Magnesium AMLAB Lab 02/15/25 06:00 Ordered Magnesium AMLAB Lab 02/16/25 06:00 Ordered Magnesium AMLAB Lab 02/17/25 06:00 Ordered Magnesium Stat Lab 02/12/25 10:35 Results Procalcitonin Stat Lab 02/12/25 10:35 Results Trop I [Troponin I] Stat Lab 02/12/25 10:35 Completed Troponin I Q3H Lab 02/12/25 13:45 Ordered Troponin I Q3H Lab 02/12/25 16:45 Ordered Urinalysis and Microscopic Stat Lab 02/12/25 11:20 Completed Blood Culture Stat Micro 02/12/25 10:50 Received VBG [Venous Blood Gas] Stat RT 02/12/25 10:31 Completed HEART Score History (anamnesis): Slightly suspicious ECG: Non-specific disturbance Age: >65 years Risk factors: Atherosclerosis history Troponin: </= normal limit HEART Score: 5 Medical Decision Narrative: In summary patient is a 74-year-old female who presents to the emergency department for evaluation of acute respiratory distress. Patient received 1 DuoNeb and 125 of Solu-Medrol by EMS en route patient is hypertensive on arrival with a blood pressure 184/90 pulse 87 with sinus rhythm on the bedside monitor breathing 30 times a minute at the time of my exam on EMS nonrebreather mask upon arrival, and afebrile. Physical exam reveals a cachectic appearing much older than stated age and chronically ill-appearing appearing 74-year-old female who is in acute respiratory distress. Patient has tachypnea tachycardia accessory muscle use and is working very hard to breathe. Patient is awake alert and oriented with a GCS of 15 however. Auscultation the breath sounds reveals good air entry to the bases without adventitious sounds however she has silent exhalations. There is no chest wall tenderness. Cardiac S1-S2 regular rate and rhythm without murmurs gallops or thrills. Abdomen soft nontender no rebound or guarding no rigidity. There is no dependent edema noted in her lower extremities.. Differential diagnosis includes COPD exacerbation versus PE versus ACS versus CHF versus pneumonia etc. Initial workup will be conducted with hematologic labs twelve-lead EKG plain film chest x-ray VBG blood culture. Initial interventions include additional DuoNeb magnesium and transition from nonrebreather to BiPAP. Initial workup reviewed by me and her hematologic labs show white count of 14.4 H&H of 9.5 and 32.8 respectively with an absolute neutrophil count of 6.3, D-dimer 0.58 via age-adjusted D-dimer is below top of normal range of 0.75. VBG shows a pH of 7.16 pCO2 of 60.6 PO2 of 177 bicarb 20.9 base excess of -7.8 O2 sat of 99 with a VBG lactic acid of 4.4. Chemistry shows a gap of 17.5 with a creatinine of 1.2 GFR of 44 calcium 7.8 with a normal albumin magnesium of 1.3 and undetectable troponin and a procalcitonin of 0.1. My informal interpretation of her plain film chest x-ray shows cephalization diffusely suggestive of pulmonary edema prior to radiology read. Please see final read from interpretation. We increased your BiPAP to 18/8 at 45%, I have ordered IV repletion of her magnesium calcium and started azithromycin and Rocephin after blood cultures. We then had an interactive discussion with Dr. Ratliff regarding patient presentation MARMOLEJO and management and he requested a night pride drip with a target blood pressure of 140-150 systolic. I then had an interactive discussion with hospital medicine regarding patient presentation MARMOLEJO and management and she will be admitted to the ICU for further evaluation and care. Kevin Fabian: I comanage this patient with Dax Real. Patient is complicated has a history of COPD baseline 3 L nasal cannula subsequently discharged home on steroids for which she has been compliant. Patient does not continue to smoke and she comes in an extremis on BiPAP. If patient needs to be intubated she wishes to do this. We will hold off initially and broad workup will be conducted with hematologic labs VBG. She has a history of poorly controlled COPD, has heart failure with preserved ejection fraction, echo of 2023 showed normal biventricular function with mild RV dilation. RVSP at that time was 25-30 patient underwent catheterization has nonflow limiting hyperdynamic ventricle with increased biventricular filling pressures with relatively uncontrolled hypertension for which medical management was recommended. She presents with near silent chest, [id number] ultrasound shows preserved ejection fraction but has bilateral B-lines. Given this I think patient has multifactorial respiratory failure with COPD and CHF. 80 mg of Lasix was administered under my direction. Manual blood pressure 184/90 with previous blood pressures control to normal that were documented. DuoNebs, magnesium administered in the emergency department patient was placed on moderate BiPAP settings as she has hypercarbic respiratory failure on VBG. Antibiotic coverage added appropriately. I discussed case with Dr. Ratliff regarding management he recommends night pride drip at this time which will be initiated. Patient will require admission at this time. <Kevin Fabian MD - Last Filed: 02/12/25 12:40> Vital Signs: 02/12/25 10:40 02/12/25 10:43 02/12/25 10:45 Temperature Temperature Source Pulse Rate 87 74 Pulse Rate [Right Radial] Respiratory Rate 21 Blood Pressure 184/90 H Blood Pressure [Right Arm] Blood Pressure Mean 107 Blood Pressure Mean [Right Arm] Blood Pressure Source [Right Arm] Blood Pressure Position [Right Arm] 02 Sat by Pulse Oximetry 99 Oxygen Delivery Method BiPAP Fraction of Inspired Oxygen 02/12/25 10:45 02/12/25 11:00 02/12/25 11:06 Temperature 96.8 F L Temperature Source Axillary Pulse Rate 79 75 Pulse Rate [Right Radial] 99 H Respiratory Rate 23 26 H Blood Pressure 162/89 H Blood Pressure [Right Arm] 184/90 H Blood Pressure Mean 109 Blood Pressure Mean [Right Arm] 121 Blood Pressure Source [Right Arm] Automatic Cuff Blood Pressure Position [Right Arm] Supine 02 Sat by Pulse Oximetry 99 99 Oxygen Delivery Method BiPAP Non-Rebreather Fraction of Inspired Oxygen 02/12/25 11:30 02/12/25 12:02 Temperature 98.4 F 98.4 F Temperature Source Pulse Rate 67 64 Pulse Rate [Right Radial] Respiratory Rate 18 17 Blood Pressure 146/73 H 124/56 L Blood Pressure [Right Arm] Blood Pressure Mean 97 81 Blood Pressure Mean [Right Arm] Blood Pressure Source [Right Arm] Blood Pressure Position [Right Arm] 02 Sat by Pulse Oximetry 100 99 Oxygen Delivery Method BiPAP Fraction of Inspired Oxygen Lab Data Lab Results 02/12/25 10:31: VBG pH 7.16 L, VBG pCO2 60.6 H, VBG pO2 177.0 H, VBG HCO3 20.9 L, VBG Total CO2 22.8 L, VBG O2 Saturation 99.0 H, VBG Base Excess -7.8 L, VBG Lactic Acid 4.4 H 02/12/25 10:35: WBC 14.4 H, RBC 3.99 L, Hgb 9.5 L, Hct 32.8 L, MCV 82.2, MCH 23.8 L, MCHC 29.0 L, RDW 21.9 H, Plt Count 364, MPV 10.0, Neut % (Auto) 43.9, Lymph % (Auto) 41.6, [place] % (Auto) 8.7, Eos % (Auto) 4.3, Baso % (Auto) 0.5, Neut # (Auto) 6.3, Lymph # (Auto) 6.0 H, [place] # (Auto) 1.3 H, Eos # (Auto) 0.6 H, Baso # (Auto) 0.1, Total Counted 100, Neutrophils % (Manual) 52, Lymphocytes % (Manual) 37, Monocytes % (Manual) 5, Eosinophils % (Manual) 5 H, Basophils % (Manual) 1.0, Platelet Estimate Normal, Hypochromasia 2+, Tear Drop Cells 1+, Ovalocytes 1+, Orma Cells 1+, Schistocytes 1+, D-Dimer 0.58 H, Sodium 140, Potassium 3.5, Chloride 103, Carbon Dioxide 23, Anion Gap 17.5 H, BUN 14, Creatinine 1.20 H, Estimated GFR 44 L, Est GFR ( Amer) 53 L, Glucose 201 H, Calcium 7.8 L, Magnesium 1.3 L, Total Bilirubin 0.3, AST 58 H, ALT 28, Alkaline Phosphatase 119, Troponin I < 0.01, Total Protein 6.3, Albumin 3.8, Globulin 2.5, Albumin/Globulin Ratio 1.5, Procalcitonin 0.100 02/12/25 11:20: Urine Color Yellow, Urine Appearance Clear, Urine pH 6.0, Ur Specific [place] 1.010, Urine Protein Negative, Urine Glucose (UA) Negative, Urine Ketones Negative, Urine Blood Negative, Urine Nitrate Negative, Urine Bilirubin Negative, Urine Urobilinogen 0.2, Ur Leukocyte Esterase Negative, Urine RBC None, Urine WBC None, Ur Squamous Epith Cells None, Urine Bacteria None Orders (Tests/Meds): ED MEDICATIONS Generic Name Dose Route Start Last Admin Trade Name Freq PRN Reason Stop Dose Admin Acetaminophen 650 mg 02/12/25 11:57 Acetaminophen 325mg Tab PO 03/14/25 11:56 Q4HP PRN Fever or Mild Pain (1-3) Albuterol/Ipratropium 3 ml 02/12/25 14:00 Ipratropium/Albuterol 3 Ml [facility] 03/14/25 13:59 Q4RT [facility] Budesonide 0.5 mg 02/12/25 18:00 Budesonide 0.5mg/2ml [facility] 03/14/25 17:59 BIDRT [facility] Enoxaparin Sodium 40 mg 02/13/25 09:00 Enoxaparin 40mg/0.4ml Syringe SUBCUT 03/15/25 08:59 DAILY GRACIE Ceftriaxone Sodium 1 gm/ 50 mls @ 100 mls/hr 02/12/25 11:00 02/12/25 11:34 Sodium Chloride IV 02/22/25 10:59 100 mls/hr Q24H GRACIE Administration Azithromycin 500 mg/ Sodium 250 mls @ 250 mls/hr 02/12/25 11:00 02/12/25 11:48 Chloride IV 02/22/25 10:59 250 mls/hr Q24H GRACIE Administration Calcium Gluconate/Sodium Chloride 2 gm in 100 mls @ 50 mls/hr 02/12/25 11:05 02/12/25 11:50 Calcium Gluconate 2,000mg/100ml Nacl Premix IV 02/12/25 13:04 50 mls/hr ONCE ONE Administration Sodium Nitroprusside 50 mg/ 252 mls @ 4.115 mls/hr 02/12/25 11:30 Dextrose IV 03/14/25 11:29 .Q24H GRACIE Protocol 0.3 MCG/KG/MIN Ondansetron HCl 4 mg 02/12/25 11:57 Ondansetron 4mg/2ml Vial IV 03/14/25 11:56 Q8HP PRN Nausea Sodium Chloride 10 ml 02/12/25 11:35 Sodium Chloride 0.9% 10ml Flush Syringe IV 03/14/25 11:34 NEEDED PRN Maintain IV Site Discontinued Medications Generic Name Dose Route Start Last Admin Trade Name Freq PRN Reason Stop Dose Admin Albuterol/Ipratropium 9 ml 02/12/25 10:30 02/12/25 10:58 Ipratropium/Albuterol 3 Ml Neb IH 02/12/25 10:31 9 ml ONCE ONE Administration Furosemide 80 mg 02/12/25 10:45 02/12/25 11:23 Furosemide 100mg/10ml Vial IV 02/12/25 10:46 Not Given ONCE ONE Magnesium Sulfate 2 gm in 50 mls @ 50 mls/hr 02/12/25 10:30 02/12/25 10:38 Magnesium Sulfate 2gm/50ml Premix IV 02/12/25 11:29 50 mls/hr ONCE ONE Administration ORDERS Category Date Time Status Cardiology Consult [Consult to Cardiology] [CONS] Cons 02/12/25 12:11 Active Routine Pulmonology Consult [Consult to Pulmonology] [CONS] Cons 02/12/25 12:11 Active Routine POCUS Point of Care (ER Only) Stat Exams 02/12/25 10:34 Completed XR chest portable Stat Exams 02/12/25 10:32 Completed BNP [NT Pro Brain Natriuretic Pep.] Stat Lab 02/12/25 10:35 Results CBC w/Auto Diff [Complete Blood Count Auto Diff] Stat Lab 02/12/25 10:35 Completed CMP [Comprehensive Metabolic Panel] Stat Lab 02/12/25 10:35 Completed Complete Blood Count Auto Diff AMLAB Lab 02/13/25 06:00 Ordered Complete Blood Count Auto Diff AMLAB Lab 02/14/25 06:00 Ordered Complete Blood Count Auto Diff AMLAB Lab 02/15/25 06:00 Ordered Complete Blood Count Auto Diff AMLAB Lab 02/16/25 06:00 Ordered Complete Blood Count Auto Diff AMLAB Lab 02/17/25 06:00 Ordered Comprehensive Metabolic Panel AMLAB Lab 02/13/25 06:00 Ordered Comprehensive Metabolic Panel AMLAB Lab 02/14/25 06:00 Ordered Comprehensive Metabolic Panel AMLAB Lab 02/15/25 06:00 Ordered Comprehensive Metabolic Panel AMLAB Lab 02/16/25 06:00 Ordered Comprehensive Metabolic Panel AMLAB Lab 02/17/25 06:00 Ordered D-Dimer Stat Lab 02/12/25 10:35 Completed Full Resp Panel w/COVID ([facility]) Routine Lab 02/12/25 11:00 Received Magnesium AMLAB Lab 02/13/25 06:00 Ordered Magnesium AMLAB Lab 02/14/25 06:00 Ordered Magnesium AMLAB Lab 02/15/25 06:00 Ordered Magnesium AMLAB Lab 02/16/25 06:00 Ordered Magnesium AMLAB Lab 02/17/25 06:00 Ordered Magnesium Stat Lab 02/12/25 10:35 Results Procalcitonin Stat Lab 02/12/25 10:35 Results Trop I [Troponin I] Stat Lab 02/12/25 10:35 Completed Troponin I Q3H Lab 02/12/25 13:45 Ordered Troponin I Q3H Lab 02/12/25 16:45 Ordered Urinalysis and Microscopic Stat Lab 02/12/25 11:20 Completed Blood Culture Stat Micro 02/12/25 10:50 Received VBG [Venous Blood Gas] Stat RT 02/12/25 10:31 Completed ECG Data Tracing #1: Independently inter by me rate is 109, rhythm is regular, axis is normal, no ST elevation in anatomical contiguous leads, QTc 385 HEART Score HEART Score: 5 Medical Decision Narrative: In summary patient is a 74-year-old female who presents to the emergency department for evaluation of acute respiratory distress. Patient received 1 DuoNeb and 125 of Solu-Medrol by EMS en route patient is hypertensive on arrival with a blood pressure 184/90 pulse 87 with sinus rhythm on the bedside monitor breathing 30 times a minute at the time of my exam on EMS nonrebreather mask upon arrival, and afebrile. Physical exam reveals a cachectic appearing much older than stated age and chronically ill-appearing appearing 74-year-old female who is in acute respiratory distress. Patient has tachypnea tachycardia accessory muscle use and is working very hard to breathe. Patient is awake alert and oriented with a GCS of 15 however. Auscultation the breath sounds reveals good air entry to the bases without adventitious sounds however she has silent exhalations. There is no chest wall tenderness. Cardiac S1-S2 regular rate and rhythm without murmurs gallops or thrills. Abdomen soft nontender no rebound or guarding no rigidity. There is no dependent edema noted in her lower extremities.. Differential diagnosis includes COPD exacerbation versus PE versus ACS versus CHF versus pneumonia etc. Initial workup will be conducted with hematologic labs twelve-lead EKG plain film chest x-ray VBG blood culture. Initial interventions include additional DuoNeb magnesium and transition from nonrebreather to BiPAP. Initial workup reviewed by me and her hematologic labs show white count of 14.4 H&H of 9.5 and 32.8 respectively with an absolute neutrophil count of 6.3, D-dimer 0.58 via age-adjusted D-dimer is below top of normal range of 0.75. VBG shows a pH of 7.16 pCO2 of 60.6 PO2 of 177 bicarb 20.9 base excess of -7.8 O2 sat of 99 with a VBG lactic acid of 4.4. Chemistry shows a gap of 17.5 with a creatinine of 1.2 GFR of 44 calcium 7.8 with a normal albumin magnesium of 1.3 and undetectable troponin and a procalcitonin of 0.1. My informal interpretation of her plain film chest x-ray shows cephalization diffusely suggestive of pulmonary edema prior to radiology read. Please see final read from interpretation. We increased your BiPAP to 18/8 at 45%, I have ordered IV repletion of her magnesium calcium and started azithromycin and Rocephin after blood cultures. We then had an interactive discussion with Dr. Ratliff regarding patient presentation MARMOLEJO and management and he requested a night pride drip with a target blood pressure of 140-150 systolic. I then had an interactive discussion with hospital medicine regarding patient presentation MARMOLEJO and management and she will be admitted to the ICU for further evaluation and care. Kevin Fabian: I comanaged this patient with Dax Real. Patient is complicated has a history of COPD baseline 3 L nasal cannula subsequently discharged home on steroids for which she has been compliant. Patient does not continue to smoke and she comes in an extremis on BiPAP. If patient needs to be intubated she wishes to do this. We will hold off initially and broad workup will be conducted with hematologic labs VBG. She has a history of poorly controlled COPD, has heart failure with preserved ejection fraction, echo of 2023 showed normal biventricular function with mild RV dilation. RVSP at that time was 25-30 patient underwent catheterization has nonflow limiting hyperdynamic ventricle with increased biventricular filling pressures with relatively uncontrolled hypertension for which medical management was recommended. She presents with near silent chest, [id number] ultrasound shows preserved ejection fraction but has bilateral B-lines. Given this I think patient has multifactorial respiratory failure with COPD and CHF. 80 mg of Lasix was administered under my direction. Manual blood pressure 184/90 with previous blood pressures control to normal that were documented. DuoNebs, magnesium administered in the emergency department patient was placed on moderate BiPAP settings as she has hypercarbic respiratory failure on VBG. Antibiotic coverage added appropriately. I discussed case with Dr. Ratliff regarding management he recommends nipride drip at this time which will be initiated. Patient will require admission at this time. Procedure: Procedure performed was [id number] ultrasound. Procedure performed by Kevin Fabian. Using the phased array probe parasternal long axis and parasternal short axis views were obtained. Grossly normal ejection fraction normal EPSS no large pericardial effusion. Adjacent lung curiel bilaterally have B-lines suggestive of consolidation versus pulmonary edema. Images were technically adequate and did necessitate further imaging and were saved to a permanent archive. Critical Care <TESHA Keyes - Last Filed: 02/12/25 12:38> Critical Care Time Critical Care Time: Yes Attestation: On 02/12/25, the high probability of a clinically significant, sudden or life threatening deterioration of the following system(s) required my full and direct attention, intervention and personal management. The time I documented below is in addition to time spent performing reported procedures but includes the following listed in this critical care notation. Total Time Total Critical Care Time: 60
--- NOTE | 2025-02-12 10:32 | XR_ITS ---
FINAL REPORT CLINICAL HISTORY: Acute respiratory distress COMPARISON: 02/04/2025 FINDINGS: CHEST SINGLE VIEW: The heart size is normal. The mediastinum is normal. There is no focal infiltrate or edema. Mild chronic changes are present in the lung bases. There are no pleural effusions. There is no pneumothorax. There is no osseous abnormality. IMPRESSION: No acute cardiopulmonary process Reviewed, Interpreted and Dictated by Elmo aVlle MD Transcribed by Thalia Panda Authenticated and [facility]
--- NOTE | 2025-02-12 10:33 | ECG_ITS ---
APPROVED REPORT Exam: Resting ECG HR:109 bpm ECG Measurements Heart Rate 109 AXES NH 140 P 84 QRSd 88 QRS 64 QT 321 T 58 QTc 385 Conclusion SINUS TACHYCARDIA WITH OCCASIONAL ECTOPIC PREMATURE COMPLEXES NONSPECIFIC ST & T-WAVE ABNORMALITY ABNORMAL RHYTHM ECG Electronically signed by : JEFFREY GONSALEZ, 02/12/2025 15:58:46
[2025-02-12] MEDS: MAGNESIUM SULFATE IN WATER 2 GM/50 ML PIGGYBACK IV (10:38)
[2025-02-12] MEDS: FUROSEMIDE 100MG/10ML VIAL 80 MG IV (10:40)
[2025-02-12 10:44] LABS: Hematocrit 32.8 % (37.0-47.0); Hemoglobin 9.5 g/dL (12.2-16.2); Immature Granulocytes % 1.0 %; Mean Corpuscular HGB Conc 29.0 g/dL (31.8-35.4); Mean Corpuscular Hemoglobin 23.8 pg (27.0-31.2); Mean Corpuscular Volume 82.2 fl (81-99); Nucleated Red Blood Cells % 0 %; Platelet Count 364 K/mm3 (142-424); Red Blood Count 3.99 M/mm3 (4.20-5.40); Red Cell Distribution Width-SD 65.4 fL; White Blood Count 14.4 K/mm3 (4.8-10.8)
--- NOTE | 2025-02-12 10:45 | PC.NURSE ---
resp at bedside
--- NOTE | 2025-02-12 10:46 | PC.NURSE ---
resp placed pt on bipap
[2025-02-12 10:47] LABS: VBG HCO3 20.9 mmol/L (23-30); VBG PO2 177.0 mmol/L (28-40)
[2025-02-12 10:51] LABS: VBG PH 7.16 mmol/L (7.31-7.41)
[2025-02-12 10:52] LABS: Lactate Venous 4.4 mmol/L (0.4-2.0); VBG PCO2 60.6 mmol/L (35-51)
[2025-02-12 10:56] LABS: Alanine Aminotransferase 28 U/L (12-78); Albumin Level 3.8 g/dl (3.5-5.0); Albumin/Globulin Ratio 1.5 (1.1-1.8); Alkaline Phosphatase 119 U/L (38-126); Anion Gap 17.5 mEq/L (5-15); Aspartate Amino Transferase 58 U/L (14-36); Bilirubin,Total 0.3 mg/dl (0.2-1.3); Blood Urea Nitrogen 14 mg/dl (7-17); Calcium 7.8 mg/dl (8.4-10.2); Carbon Dioxide 23 mmol/L (22.0-30.0); Chloride 103 mmol/L (98-107); Creatinine,Serum 1.20 mg/dl (0.52-1.04); Estimated Glomerular Filt Rate 44 ml/min (>60); GFR (African American) 53 ML/MIN (>60); Globulin 2.5 g/dL (1.3-3.2); Glucose 201 mg/dl (74-100); Potassium 3.5 mmoL/L (3.5-5.1); Sodium 140 mmol/L (136-145); Total Protein,Serum 6.3 g/dl (6.3-8.2)
[2025-02-12 10:57] LABS: Magnesium 1.3 mg/dl (1.6-2.3)
[2025-02-12] MEDS: IPRATROPIUM/ALBUTEROL 3 ML NEB 9 ML IH (10:58)
[2025-02-12 11:02] LABS: D-Dimer 0.58 ug/mL (0.0-0.5)
[2025-02-12 11:03] LABS: Adenovirus,PCR Not Detected (NotDetected); Chlamydophila Pneumoniae, PCR Not Detected (NotDetected); Coronavirus 19, PCR Not Detected (NotDetected); Coronovirus HKU1,PCR Not Detected (NotDetected); Influenza A, PCR Not Detected (NotDetected); Influenza AH1, 2009 Not Detected (NotDetected); Influenza AH1, PCR Not Detected (NotDetected); Influenza AH3,PCR Not Detected (NotDetected); Influenza B, PCR Not Detected (NotDetected); Mycoplasma Pneumoniae, PCR Not Detected (NotDetected); Parainfluenza 1, PCR Not Detected (NotDetected); Parainfluenza 2, PCR Not Detected (NotDetected); Parainfluenza 3, PCR Not Detected (NotDetected); Parainfluenza 4, PCR Not Detected (NotDetected)
[2025-02-12 11:04] LABS: Total Cells Counted 100
[2025-02-12 11:05] LABS: Schistocytes 1+
[2025-02-12 11:06] LABS: Burr Cells 1+
[2025-02-12 11:08] LABS: Hypochromasia 2+
[2025-02-12 11:09] LABS: Ovalocytes 1+; Tear Drop Cells 1+
[2025-02-12 11:10] LABS: Troponin I < 0.01 ng/ml (0.00-0.034)
[2025-02-12 11:13] LABS: Procalcitonin 0.100 ng/mL (0.0-2.0)
[2025-02-12] MEDS: CEFTRIAXONE 1 GM 1 GM in 0.9 % SODIUM CHLORIDE 50 ML IV (11:34)
--- NOTE | 2025-02-12 11:42 | HMH.PHAINT1 ---
Pharmacy Intervention Comments: MEDICATION RECONCILIATION COMPLETED ON PATIENT USING EXTERNAL FILL HISTORY FROM PHARMACY AND DISCHARGE SUMMARY FROM PREVIOUS ADMISSION. -MORENITA PIERCE, VERONICAD
[2025-02-12] MEDS: AZITHROMYCIN 500 MG in 0.9 % SODIUM CHLORIDE 250 ML 250 MG IV (11:48)
[2025-02-12] MEDS: CALCIUM GLUC IN NACL, ISO-OSM 2 GM/100 ML BAG IV (11:50)
--- NOTE | 2025-02-12 12:04 | PC.NURSE ---
call made to house officer for bed placement
[2025-02-12 12:11] LABS: Microscopic, Urine URINE MICROSCOPIC (MICROSCOPIC)
[2025-02-12 12:14] LABS: Bilirubin,Urine Negative (Negative); Color,Urine YELLOW (Yellow); Glucose,Urine (UA) Negative (Negative); Ketones,Urine Negative (Negative); Leukocyte Esterase,Urine Negative (Negative); PH,Urine 6.0 (5.0-8.5); Protein,Urine Negative (Negative); Specific Gravity, Urine 1.010 (1.005-1.030); Urobilinogen,Urine 0.2 EU/dl (0.2)
--- NOTE | 2025-02-12 12:39 | CA_ITS ---
APPROVED REPORT EXAM: Comprehensive 2D, Doppler, and color-flow Echocardiogram Director Loss Prevention: Leanne Neri RT(R) Ht: 5 ft 1 in Wt: 116lbs BSA: 1.50 BP: 184/90 mmHg Indications: CHF, HFpEF, COPD 2D Dimensions EF AP4 51.90 % GL Strain -12.7 % M-Mode Dimensions RVDd 2.06 cm (0.9-2.6) LA Diam 2.89 cm (1.9-4.0) LVDd 4.00 cm (3.5-5.7) LVDs 2.88 cm (3.5-5.7) IVSd 0.75 cm (0.6-1.1) PWd 0.84 cm (0.6-1.1) EF (Teich) 54.70% FS 28.00% EDV (Teich) 70.00 mL ESV (Teich) 31.70 mL LV Diastology E Decel Time 207 (160-240 msec) E/A Ratio 1.04 Mitral Valve MV A Velocity 84.0 (40-130 cm/s) E/A Ratio 1.04 Left Ventricle The left ventricle is normal size. The left ventricular systolic function is normal. The left ventricular ejection fraction is within the normal range. There is increased LV wall thickness. There is normal LV segmental wall motion. The left ventricular diastolic function is normal. LVEF is 55%. Right Ventricle The right ventricle is normal size. The right ventricular systolic function is normal. Atria Left atrium is mildly dilated. Right atrium is mildly dilated. There is no Doppler evidence of interatrial shunt. Aortic Valve The aortic valve is mildly thickened. There is no aortic valvular stenosis. Trace aortic regurgitation. Mitral Valve The mitral valve is normal in structure. No evidence of mitral valve stenosis. Mild mitral regurgitation. Tricuspid Valve Tricuspid valve is grossly normal in structure and function. Trace tricuspid regurgitation. There is insufficient TR jet to estimate RVSP. Pulmonic Valve The pulmonary valve is normal in structure. Trace pulmonic regurgitation. Great Vessels The aortic root is normal in size. IVC is normal in size and collapses >50% with inspiration. Pericardium There is no pericardial effusion. Other Information Study Quality: Fair Conclusion Normal biventricular systolic function. Mild biatrial dilation. Mild MR. Electronically signed by : Cuca Benedict MD 02/14/2025 16:27:22
--- NOTE | 2025-02-12 12:47 | PC.NURSE ---
report given to angela roger
[2025-02-12] MEDS: IPRATROPIUM/ALBUTEROL 3 ML NEB IH ×3 (13:26→22:05)
[2025-02-12 13:49] LABS: Lactate Venous 1.0 mmol/L (0.4-2.0); VBG HCO3 27.1 mmol/L (23-30); VBG PH 7.30 mmol/L (7.31-7.41); VBG PO2 30.1 mmol/L (28-40)
[2025-02-12 13:52] LABS: VBG PCO2 56.0 mmol/L (35-51)
[2025-02-12 14:00] LABS: NT Pro Brain Natriuretic Pep. 1180 pg/mL (0-450)
[2025-02-12 14:19] LABS: Troponin I < 0.01 ng/ml (0.00-0.034)
[2025-02-12 14:21] LABS: NT Pro Brain Natriuretic Pep. 1130 pg/mL (0-450)
--- NOTE | 2025-02-12 14:32 | EXP.CARD.CON ---
History of Present Illness History of Present Illness Consult date: 02/12/25 Chief complaint: SOA History of present illness: 74-year-old white female well-established patient here with history of CAD, HFpEF, COPD on 5 L/min at home secondary to severe emphysema with significant decline over the past year. She came in to ER in extremis on BiPAP with blood pressure elevated 180s. She was started on nitro drip for this which is why we are consulted. Post nebulizers patient is breathing much better and her blood pressure is down to 150s. She denies cardiac questions or concerns. [facility] Disclaimer: The information contained in this section may have been updated after the patient was seen, as this information can be updated by other users. Medical History CAP (community acquired pneumonia) Other forms of dyspnea Pulmonary hypertension Hyperlipidemia Hypertension Dyspnea Atypical angina Chronic respiratory failure with hypoxia Encounter for screening for malignant neoplasm of lung Smoking greater than 30 pack years Pulmonary emphysema COPD exacerbation BMI less than 19,adult (HFpEF) heart failure with preserved ejection fraction Tobacco dependence Dependence on supplemental oxygen Coronary artery disease Iron deficiency anemia COPD (chronic obstructive pulmonary disease) Surgical History Hx of esophagogastroduodenoscopy History of colonoscopy History of hysterectomy History of heart artery stent S/P cardiac catheterization Family History Father Alzheimer disease Mother Stroke Social History Smoking Status: Former smoker tobacco type: cigarettes packs per day: 1 years smoked: 60 smoking status stop date: 3 years ago alcohol intake: former current occupational status: other Travel in the last 8 weeks?: None Have you lived/traveled outside [place] in past 30 days?: No Contact w/someone who lives/traveled outside [place] past 30 days?: No Exposure to someone with infectious disease in past 14 days?: No Do you have a fever (greater than 100.4 F or 38 C)?: No Have you tested positive for COVID-19?: No Exposed to someone with COVID-19 in past 14 days?: No Do you have a sore throat?: No Do you have a cough?: No Do you have any weakness?: No Do you have any diarrhea?: No Are you experiencing any unusual bleeding?: No Do you have any muscle aches/pain?: No Do you have any abdominal pain?: No Are you experiencing loss of taste or smell?: No Review of Systems Constitutional Constitutional: Reports fatigue and Reports weakness Eyes Eyes: Denies loss of vision ENT Ears, Nose, Mouth, and Throat: Denies hearing loss and Denies vertigo *Cardiovascular Cardiovascular: Denies chest pain, Reports dyspnea and Denies syncope *Respiratory Respiratory: Denies cough and Reports dyspnea *Gastrointestinal Gastrointestinal: Denies change in stool character, Denies nausea and Denies vomiting *Musculoskeletal Musculoskeletal: Denies muscle weakness Integumentary/Breasts Skin/Breast: Denies changing lesions *Neurologic Neurologic: Denies loss of vision, Denies syncope, Denies vertigo and Reports weakness Endocrine Endocrine: Reports fatigue Exam Data for Last 24 hours Vital signs and Labs for Last 24 Hours: Temp Pulse Resp BP Pulse Ox O2 Del Method O2 Flow Rate 98.6 F 79 28 H 159/84 H 94 L Nasal Cannula 4 02/12/25 14:00 02/12/25 14:00 02/12/25 14:00 02/12/25 14:00 02/12/25 14:02/12/25 14:02/12/25 14:00 FiO2 02/12/25 10:40 Laboratory Results - last 24 hr 02/12/25 10:31: VBG pH 7.16 L, VBG pCO2 60.6 H, VBG pO2 177.0 H, VBG HCO3 20.9 L, VBG Total CO2 22.8 L, VBG O2 Saturation 99.0 H, VBG Base Excess -7.8 L, VBG Lactic Acid 4.4 H 02/12/25 10:35: WBC 14.4 H, RBC 3.99 L, Hgb 9.5 L, Hct 32.8 L, MCV 82.2, MCH 23.8 L, MCHC 29.0 L, RDW 21.9 H, Plt Count 364, MPV 10.0, Neut % (Auto) 43.9, Lymph % (Auto) 41.6, [place] % (Auto) 8.7, Eos % (Auto) 4.3, Baso % (Auto) 0.5, Neut # (Auto) 6.3, Lymph # (Auto) 6.0 H, [place] # (Auto) 1.3 H, Eos # (Auto) 0.6 H, Baso # (Auto) 0.1, Total Counted 100, Neutrophils % (Manual) 52, Lymphocytes % (Manual) 37, Monocytes % (Manual) 5, Eosinophils % (Manual) 5 H, Basophils % (Manual) 1.0, Platelet Estimate Normal, Hypochromasia 2+, Tear Drop Cells 1+, Ovalocytes 1+, [place] Cells 1+, Schistocytes 1+, D-Dimer 0.58 H, Sodium 140, Potassium 3.5, Chloride 103, Carbon Dioxide 23, Anion Gap 17.5 H, BUN 14, Creatinine 1.20 H, Estimated GFR 44 L, Est GFR ( Amer) 53 L, Glucose 201 H, Calcium 7.8 L, Magnesium 1.3 L, Total Bilirubin 0.3, AST 58 H, ALT 28, Alkaline Phosphatase 119, Troponin I < 0.01, NT-Pro-B Natriuret Pep 1130 H, Total Protein 6.3, Albumin 3.8, Globulin 2.5, Albumin/Globulin Ratio 1.5, Procalcitonin 0.100 02/12/25 11:00: Chlamy pneumoniae PCR Not detected, Adenovirus (PCR) Not detected, B. pertussis DNA (PCR) Not detected, Coronavirus OC43 (PCR) Not detected, Coronavirus HKU1 (PCR) Not detected, Coronavirus 229E (PCR) Not detected, SARS-CoV-2 (PCR) Not detected, Coronavirus NL63 (PCR) Not detected, Human Metapneumovir PCR Not detected, Influenza A (H1) PCR Not detected, Influ A (H1N1/09) PCR Not detected, Influenza A (H3) PCR Not detected, Influenza Type A (PCR) Not detected, Influenza Type B (PCR) Not detected, M. pneumoniae (PCR) Not detected, Parainfluenza 1 (PCR) Not detected, Parainfluenza 2 (PCR) Not detected, Parainfluenza 3 (PCR) Not detected, Parainfluenza 4 (PCR) Not detected, RSV (PCR) Not detected, Entero/Rhino (PCR) Not detected 02/12/25 11:20: Urine Color Yellow, Urine Appearance Clear, Urine pH 6.0, Ur Specific [place] 1.010, Urine Protein Negative, Urine Glucose (UA) Negative, Urine Ketones Negative, Urine Blood Negative, Urine Nitrate Negative, Urine Bilirubin Negative, Urine Urobilinogen 0.2, Ur Leukocyte Esterase Negative, Urine RBC None, Urine WBC None, Ur Squamous Epith Cells None, Urine Bacteria None 02/12/25 13:21: Troponin I < 0.01, NT-Pro-B Natriuret Pep 1180 H 02/12/25 13:40: VBG pH 7.30 L, VBG pCO2 56.0 H, VBG pO2 30.1, VBG HCO3 27.1, VBG Total CO2 28.8 H, VBG O2 Saturation 51.0, VBG Base Excess 0.7, VBG Lactic Acid 1.0 I & O for Last 24 hours: Intake & Output 02/09/25 02/10/25 02/11/25 02/12/25 23:59 23:59 23:59 23:59 Output Total 1400 / 1400 Balance -1400 / -1400 Weight 116 lb 4 oz Constitutional Constitutional: no acute distress and cooperative *Routine HEENT Exam Eye: Present PERRL *Routine Respiratory Exam Respiratory: Present CTA bilaterally; Absent accessory muscle use, wheezes or crackles *Routine Cardiovascular Exam Cardiovascular: Present RRR, Normal S1 and Normal S2; Absent murmur, gallop or rubs *Routine Abdominal Exam Abdominal: Present soft; Absent tenderness *Routine Extremities Exam Extremities: Present pulses intact; Absent cyanosis or edema *Routine Skin Exam Skin: Present intact; Absent erythema or wounds *Routine Neurological Exam Neurological: Present alert and oriented X3 Routine Psychiatric Exam Psychiatric: Present cooperative Meds Home Medications and Allergies Home Medications ?Medication ?Instructions ?Recorded ?Confirmed ?Type atorvastatin 40 mg tablet 40 mg PO HS 12/31/23 02/12/25 History clopidogrel 75 mg tablet 75 mg PO DAILY 12/31/23 02/12/25 History sertraline 100 mg tablet 200 mg PO DAILY 12/31/23 02/12/25 History cyanocobalamin (vitamin B-12) 1,000 mcg PO DAILY 04/02/24 02/12/25 History 1,000 mcg tablet fluticasone fur. 100 mcg-umeclid 1 inh inhalation DAILY 90 days #60 04/02/24 02/12/25 Rx 62.5 mcg-vilant 25 mcg ea inhalat.powder (Trelegy Ellipta) isosorbide mononitrate 60 mg 60 mg PO DAILY #30 tabs 01/07/25 02/12/25 Rx tablet,extended release 24 hr meloxicam 15 mg tablet 15 mg PO DAILY 01/07/25 02/12/25 History montelukast 10 mg tablet 10 mg PO HS 01/07/25 02/12/25 History carvedilol 25 mg tablet 25 mg PO BID 30 days #60 tabs 01/17/25 02/12/25 Rx furosemide 40 mg tablet 40 mg PO DAILY 30 days #30 tabs 01/17/25 02/12/25 Rx empagliflozin 10 mg tablet 10 mg PO DAILY 30 days #30 tabs 02/04/25 02/12/25 Rx (Jardiance) irbesartan 75 mg tablet 75 mg PO DAILY 30 days #30 tabs 02/04/25 02/12/25 Rx spironolactone 25 mg tablet 25 mg PO DAILY 30 days #30 tabs 02/04/25 02/12/25 Rx albuterol sulfate 90 mcg/actuation 2 inh inhalation QIDP PRN 02/12/25 02/12/25 History aerosol inhaler shortness of breath or wheezing New Prescriptions to Start Prescriptions: Allergies Allergy/AdvReac Type Severity Reaction Status Date / Time No Known Allergies Allergy Verified 02/02/25 14:30 Assessment and Plan *Assessment and plan (1) Acute on chronic respiratory failure with hypoxia and hypercapnia: Status: Acute Category: Medical Code(s): J96.21 - Acute and chronic respiratory failure with hypoxia; J96.22 - Acute and chronic respiratory failure with hypercapnia (2) Hypertension: Status: Acute Qualifiers: Hypertension type: primary hypertension Qualified Code(s): I10 - Essential (primary) hypertension Category: Medical Code(s): I10 - Essential (primary) hypertension (3) (HFpEF) heart failure with preserved ejection fraction: Status: Acute Qualifiers: Heart failure chronicity: chronic Qualified Code(s): I50.32 - Chronic diastolic (congestive) heart failure Category: Medical Code(s): I50.30 - Unspecified diastolic (congestive) heart failure (4) Pulmonary cachexia due to chronic obstructive pulmonary disease: Status: Acute Category: Medical Code(s): R64 - Cachexia; J44.9 - Chronic obstructive pulmonary disease, unspecified Plan Hypertension accelerated - Exacerbation secondary to acute on chronic respiratory failure - Symptoms improving with nebulizer treatment - Weaning off nitro drip Acute on chronic hypoxic hypercarbic respiratory failure - Severe emphysema on 5 L/min at home - Steroids, nebs, antibiotics per pulmonology HFpEF - Echo 2023 showed mild RV dilation with normal BiV function - proBNP is 1100 here, no acute findings on chest x-ray - Repeat echo is pending. CAD status post JENNY many years ago - Left heart cath January 2025-medical management recommended - Patient denies anginal chest pain here - EKG sinus tach 109, no acute ischemic changes - Continue Plavix, statin, isosorbide This appears to be a pulmonary driven episode. Will follow-up with proBNP and 2D echo. Do not anticipate any CV procedural intervention.
[2025-02-12 14:51] LABS: Reflex Lactic Add Lactic Reflex
--- NOTE | 2025-02-12 15:38 | P.CONS_ITS ---
History of Present Illness History of present illness: Ms. Santiago is a 74-year-old female with history of COPD, chronic hypoxic respiratory failure on 3 L oxygen supplementation at baseline, preserved EF heart failure, hypertension recently seen in the hospital for COPD exacerbation hypercarbic respiratory failure discharged home on antibiotics and steroids presented to the ER again with worsening respiratory distress hypercarbic respiratory failure needing noninvasive ventilator therapy and pulmonary was called for further evaluation and management. Patient admits compliance with her inhaler therapies and nebulization therapies upon discharge. [facility] Disclaimer: The information contained in this section may have been updated after the patient was seen, as this information can be updated by other users. Medical History CAP (community acquired pneumonia) Other forms of dyspnea Pulmonary hypertension Hyperlipidemia Hypertension Dyspnea Atypical angina Chronic respiratory failure with hypoxia Encounter for screening for malignant neoplasm of lung Smoking greater than 30 pack years Pulmonary emphysema COPD exacerbation BMI less than 19,adult (HFpEF) heart failure with preserved ejection fraction Tobacco dependence Dependence on supplemental oxygen Coronary artery disease Iron deficiency anemia COPD (chronic obstructive pulmonary disease) Surgical History Hx of esophagogastroduodenoscopy History of colonoscopy History of hysterectomy History of heart artery stent S/P cardiac catheterization Family History Father Alzheimer disease Mother Stroke Social History Smoking Status: Former smoker tobacco type: cigarettes packs per day: 1 years smoked: 60 smoking status stop date: 3 years ago alcohol intake: former current occupational status: other Travel in the last 8 weeks?: None Have you lived/traveled outside [place] in past 30 days?: No Contact w/someone who lives/traveled outside US past 30 days?: No Exposure to someone with infectious disease in past 14 days?: No Do you have a fever (greater than 100.4 F or 38 C)?: No Have you tested positive for COVID-19?: No Exposed to someone with COVID-19 in past 14 days?: No Do you have a sore throat?: No Do you have a cough?: No Do you have any weakness?: No Do you have any diarrhea?: No Are you experiencing any unusual bleeding?: No Do you have any muscle aches/pain?: No Do you have any abdominal pain?: No Are you experiencing loss of taste or smell?: No Review of Systems Constitutional Constitutional: Reports fatigue Eyes Eyes: Denies eye discharge, Denies dry eyes, Denies irritation and Denies itchy eyes ENT Ears, Nose, Mouth, and Throat: Denies epistaxis, Denies facial pain, Denies lip swelling and Denies throat swelling *Cardiovascular Cardiovascular: Reports dyspnea and Reports dyspnea on exertion *Respiratory Respiratory: Denies change in phlegm color, Reports chest congestion, Reports cough, Reports dyspnea, Reports dyspnea on exertion, Denies excessive phlegm production and Reports wheezing *Gastrointestinal Gastrointestinal: Denies abdominal pain, Denies belching and Denies cramping *Musculoskeletal Musculoskeletal: Reports back pain, Reports myalgias and Reports other (No small joint swelling or Pain) Psychiatric Psychiatric: Denies homicidal ideation and Denies suicidal ideation Endocrine Endocrine: Reports fatigue and Denies heat intolerance Hematologic/Lymphatic Hematologic/Lymphatic: Denies easy bleeding and Denies lymphadenopathy Allergic/Immunologic Allergic/Immunologic: Denies itchy eyes, Denies lip swelling, Denies throat swelling and Reports wheezing Pulmonology Exam Inpatient Vital signs and Labs for Last 24 Hours: Temp Pulse Resp BP Pulse Ox O2 Del Method O2 Flow Rate 98.8 F 78 22 163/74 H 96 Nasal Cannula 4 02/12/25 15:00 02/12/25 15:00 02/12/25 15:00 02/12/25 15:00 02/12/25 15:00 02/12/25 15:00 02/12/25 15:00 FiO2 02/12/25 10:40 Laboratory Results - last 24 hr 02/12/25 10:31: VBG pH 7.16 L, VBG pCO2 60.6 H, VBG pO2 177.0 H, VBG HCO3 20.9 L , VBG Total CO2 22.8 L, VBG O2 Saturation 99.0 H, VBG Base Excess -7.8 L, VBG Lactic Acid 4.4 H 02/12/25 10:35: WBC 14.4 H, RBC 3.99 L, Hgb 9.5 L, Hct 32.8 L, MCV 82.2, MCH 23.8 L, MCHC 29.0 L, RDW 21.9 H, Plt Count 364, MPV 10.0, Neut % (Auto) 43.9, Lymph % (Auto) 41.6, [place] % (Auto) 8.7, Eos % (Auto) 4.3, Baso % (Auto) 0.5, Neut # (Auto) 6.3, Lymph # (Auto) 6.0 H, [place] # (Auto) 1.3 H, Eos # (Auto) 0.6 H , Baso # (Auto) 0.1, Total Counted 100, Neutrophils % (Manual) 52, Lymphocytes % (Manual) 37, Monocytes % (Manual) 5, Eosinophils % (Manual) 5 H, Basophils % (Manual) 1.0, Platelet Estimate Normal, Hypochromasia 2+, Tear Drop Cells 1+, Ovalocytes 1+, [place] Cells 1+, Schistocytes 1+, D-Dimer 0.58 H, Sodium 140, Potassium 3.5, Chloride 103, Carbon Dioxide 23, Anion Gap 17.5 H, BUN 14, C reatinine 1.20 H, Estimated GFR 44 L, Est GFR ( Amer) 53 L, Glucose 201 H , Calcium 7.8 L, Magnesium 1.3 L, Total Bilirubin 0.3, AST 58 H, ALT 28, Alkaline Phosphatase 119, Troponin I < 0.01, NT-Pro-B Natriuret Pep 1130 H, Total Protein 6.3, Albumin 3.8, Globulin 2.5, Albumin/Globulin Ratio 1.5, Procalcitonin 0.100 02/12/25 11:00: Chlamy pneumoniae PCR Not detected, Adenovirus (PCR) Not detected, B. pertussis DNA (PCR) Not detected, Coronavirus OC43 (PCR) Not detected, Coronavirus HKU1 (PCR) Not detected, Coronavirus 229E (PCR) Not detected, SARS-CoV-2 (PCR) Not detected, Coronavirus NL63 (PCR) Not detected, Human Metapneumovir PCR Not detected, Influenza A (H1) PCR Not detected, Influ A (H1N1/09) PCR Not detected, Influenza A (H3) PCR Not detected, Influenza Type A (PCR) Not detected, Influenza Type B (PCR) Not detected, M. pneumoniae (PCR) Not detected, Parainfluenza 1 (PCR) Not detected, Parainfluenza 2 (PCR) Not detected, Parainfluenza 3 (PCR) Not detected, Parainfluenza 4 (PCR) Not detected, RSV (PCR) Not detected, Entero/Rhino (PCR) Not detected 02/12/25 11:20: Urine Color Yellow, Urine Appearance Clear, Urine pH 6.0, Ur Specific [place] 1.010, Urine Protein Negative, Urine Glucose (UA) Negative, Urine Ketones Negative, Urine Blood Negative, Urine Nitrate Negative, Urine Bilirubin Negative, Urine Urobilinogen 0.2, Ur Leukocyte Esterase Negative, Urine RBC None, Urine WBC None, Ur Squamous Epith Cells None, Urine Bacteria None 02/12/25 13:21: Troponin I < 0.01, NT-Pro-B Natriuret Pep 1180 H 02/12/25 13:40: VBG pH 7.30 L, VBG pCO2 56.0 H, VBG pO2 30.1, VBG HCO3 27.1, VBG Total CO2 28.8 H, VBG O2 Saturation 51.0, VBG Base Excess 0.7, VBG Lactic Acid 1.0 I & O for Labs for Last 24 Hours: Intake & Output 02/09/25 02/10/25 02/11/25 02/12/25 23:59 23:59 23:59 23:59 Output Total 1400 / 1400 Balance -1400 / -1400 Weight 116 lb 4 oz Constitutional: Present moderate distress Head: Present normocephalic and atraumatic ENT: Present normal exam, normal oropharynx and mucous membranes moist Neck: Present normal inspection and full ROM Respiratory: Present prolonged expiratory phase, respiratory distress, diminished air movement and able to speak in complete sentences; Absent rhonchi or wheezes Cardiac: Present S1/S2, Tachycardia and radial pulses present GI: Present soft and distention; Absent tenderness or guarding Rectal (female): Present deferred (female): Present deferred Skin: Present intact; Absent cyanosis or jaundice Neuro: Present alert, awake and oriented x 3 Extremities: Present normal inspection; Absent clubbing or cyanosis Psychiatric: Present normal affect and cooperative Meds Home Medications and Allergies Home Medications ?Medication ?Instructions ?Recorded ?Confirmed ?Type atorvastatin 40 mg tablet 40 mg PO HS 12/31/23 5 History clopidogrel 75 mg tablet 75 mg PO DAILY 12/31/2305/01 History sertraline 100 mg tablet 200 mg PO DAILY 12/31/2305/01 History cyanocobalamin (vitamin B-12) 1,000 mcg PO DAILY 04/0202/12/25 History 1,000 mcg tablet fluticasone fur. 100 mcg-umeclid 1 inh inhalation LINDSAY Y 90 days #60 04/02/24 02/12/25 Rx 62.5 mcg-vilant 25 mcg ea inhalat.powder (Trelegy Ellipta) isosorbide mononitrate 60 mg 60 mg PO DAILY #30 tabs 0 01/07/25 02/12/25 Rx tablet,extended release 24 hr meloxicam 15 mg tablet 15 mg PO DAILY 01/07/2505/01 History montelukast 10 mg tablet 10 mg PO HS 01/07/25 5 History carvedilol 25 mg tablet 25 mg PO BID 30 days #60 tab s 01/17/25 02/12/25 Rx furosemide 40 mg tablet 40 mg PO DAILY 30 days #30 t abs 01/17/25 02/12/25 Rx empagliflozin 10 mg tablet 10 mg PO DAILY 30 days #30 tabs 02/04/25 02/12/25 Rx (Jardiance) irbesartan 75 mg tablet 75 mg PO DAILY 30 days #30 t abs 02/04/25 02/12/25 Rx spironolactone 25 mg tablet 25 mg PO DAILY 30 days #30 tabs 02/04/25 02/12/25 Rx albuterol sulfate 90 mcg/actuation 2 inh inhalation QI DP PRN 02/12/25 02/12/25 History aerosol inhaler shortness of breath or wheez ing New Prescriptions to Start Prescriptions: Allergies Allergy/AdvReac Type Severity Reaction Status Date / Time No Known Allergies Allergy Verified 02/02/25 14:30 Results Laboratory Findings 02/12/25 10:35 02/12/25 10:35 PT/INR, D-dimer D-Dimer 0.58 ug/mL (0.0-0.5) H 02/12/25 10:35 Abnormal lab findings: Abnormal Labs 02/12/25 02/12/25 02/12/25 10:31 10:35 13:21 WBC 14.4 H RBC 3.99 L Hgb 9.5 L Hct 32.8 L MCH 23.8 L MCHC 29.0 L RDW 21.9 H Lymph # (Auto) 6.0 H [place] # (Auto) 1.3 H Eos # (Auto) 0.6 H Eosinophils % (Manual) 5 H D-Dimer 0.58 H VBG pH 7.16 L VBG pCO2 60.6 H VBG pO2 177.0 H VBG HCO3 20.9 L VBG Total CO2 22.8 L VBG O2 Saturation 99.0 H VBG Base Excess -7.8 L VBG Lactic Acid 4.4 H Anion Gap 17.5 H Creatinine 1.20 H Estimated GFR 44 L Est GFR ( Amer) 53 L Glucose 201 H Calcium 7.8 L Magnesium 1.3 L AST 58 H NT-Pro-B Natriuret Pep 1130 H 1180 H 02/12/25 13:40 WBC RBC Hgb Hct MCH MCHC RDW Lymph # (Auto) [place] # (Auto) Eos # (Auto) Eosinophils % (Manual) D-Dimer VBG pH 7.30 L VBG pCO2 56.0 H VBG pO2 VBG HCO3 VBG Total CO2 28.8 H VBG O2 Saturation VBG Base Excess VBG Lactic Acid Anion Gap Creatinine Estimated GFR Est GFR ( Amer) Glucose Calcium Magnesium AST NT-Pro-B Natriuret Pep Assessment and Plan *Assessment and plan (1) Acute on chronic respiratory failure with hypoxia and hypercapnia: Status: Acute Category: Medical Code(s): J96.21 - Acute and chronic respiratory failure with hypoxia; J96.22 - Acute and chronic respiratory failure with hypercapnia (2) Acute exacerbation of chronic obstructive pulmonary disease: Status: Acute Category: Medical Code(s): J44.1 - Chronic obstructive pulmonary disease with (acute) exacerbation Plan Ms. Santiago is a 74-year-old female with history of COPD, chronic hypoxic respiratory failure on 3 L oxygen supplementation at baseline, preserved EF heart failure, hypertension recently seen in the hospital for COPD exacerbation hypercarbic respiratory failure discharged home on antibiotics and steroids presented to the ER again with worsening respiratory distress hypercarbic respiratory failure needing noninvasive ventilator therapy and pulmonary was called for further evaluation and management. Patient admits compliance with her inhaler therapies and nebulization therapies upon discharge. Afebrile. Hemodynamically stable. Mild neutrophilic predominant leukocytosis. Chest x-ray upon admission no obvious pulmonary parenchymal abnormalities. Hyperinflated lungs noted. Comprehensive respiratory viral PCR panel negative. Blood gas upon admission severe hypercarbic respiratory failure with pH of 7.16 and pCO2 of 60.6, improved to 7.30 and 56.0. Currently receiving ceftriaxone azithromycin along with DuoNebs every 4 hours along with Pulmicort every 12 scheduled. On examination moderate respiratory distress. On 2 L saturating 95%. No significant wheezing noted on auscultation. Plan: Continue DuoNebs every 4 hours along with Pulmicort twice daily Methylprednisolone 40 mg IV daily Continue ceftriaxone azithromycin pending culture results, will de-escalate antibiotics pending clinical improvement Continue BiPAP therapy for hypercarbic respiratory failure. Patient likely need BiPAP therapy upon discharge for recurrent hypercarbic respiratory failure. Will follow-up
[2025-02-12 17:16] LABS: Troponin I 0.01 ng/ml (0.00-0.034)
[2025-02-12] MEDS: ACETAMINOPHEN 325MG TAB 650 MG PO (17:47)
[2025-02-12] MEDS: BUDESONIDE 0.5MG/2ML NEB 0.5 MG IH (18:24)
--- NOTE | 2025-02-12 19:10 | EXP.HP ---
History of Present Illness *Admission Date: 02/12/25 *Reason for visit:: Shortness of breath *History of present illness: Loreta Waldrop is a 74-year-old female with medical history significant for severe emphysema/COPD on 3 L baseline, HFpEF, hypertension, iron deficiency anemia, mood disorder who presents with 2 to 3-day onset of progressive shortness of breath. Patient was recently discharged from our facility in stable condition 8 days ago and patient states she was doing well for a few days until she started experiencing shortness of breath again. She states she has been taking all her medications, including her breathing treatments, steroids, antibiotics, and her heart medications. Has required 5 L over the last few days. EMS found her to be saturating in the 60s with her home baseline oxygen. Workup in the ED significant for VBG pH 7.16, pCO2 60, negative respiratory panel, unremarkable CXR. She had profound airway constriction and was started on breathing treatments, steroids, and BiPAP. Over time, patient's respiratory status improved but continued to have very constricted airways. Case discussed with ED provider and is to be made to admit patient for acute on chronic hypoxic, hypercapnic respiratory failure from COPD exacerbation. [facility] Disclaimer: The information contained in this section may have been updated after the patient was seen, as this information can be updated by other users. Medical History CAP (community acquired pneumonia) Other forms of dyspnea Pulmonary hypertension Hyperlipidemia Hypertension Dyspnea Atypical angina Chronic respiratory failure with hypoxia Encounter for screening for malignant neoplasm of lung Smoking greater than 30 pack years Pulmonary emphysema COPD exacerbation BMI less than 19,adult (HFpEF) heart failure with preserved ejection fraction Tobacco dependence Dependence on supplemental oxygen Coronary artery disease Iron deficiency anemia COPD (chronic obstructive pulmonary disease) Surgical History Hx of esophagogastroduodenoscopy History of colonoscopy History of hysterectomy History of heart artery stent S/P cardiac catheterization Family History Father Alzheimer disease Mother Stroke Social History Smoking Status: Former smoker tobacco type: cigarettes packs per day: 1 years smoked: 60 smoking status stop date: 3 years ago alcohol intake: former current occupational status: other Travel in the last 8 weeks?: None Have you lived/traveled outside US in past 30 days?: No Contact w/someone who lives/traveled outside [place] past 30 days?: No Exposure to someone with infectious disease in past 14 days?: No Do you have a fever (greater than 100.4 F or 38 C)?: No Have you tested positive for COVID-19?: No Exposed to someone with COVID-19 in past 14 days?: No Do you have a sore throat?: No Do you have a cough?: No Do you have any weakness?: No Do you have any diarrhea?: No Are you experiencing any unusual bleeding?: No Do you have any muscle aches/pain?: No Do you have any abdominal pain?: No Are you experiencing loss of taste or smell?: No Other Medical History Have you received the Flu Vaccine for this season: No Have you received the Pneumonia Vaccine: No Meds Home Medications and Allergies Home Medications ?Medication ?Instructions ?Recorded ?Confirmed ?Type atorvastatin 40 mg tablet 40 mg PO HS 12/31/23 02/12/25 History clopidogrel 75 mg tablet 75 mg PO DAILY 12/31/23 02/12/25 History sertraline 100 mg tablet 200 mg PO DAILY 12/31/23 02/12/25 History cyanocobalamin (vitamin B-12) 1,000 mcg PO DAILY 04/02/24 02/12/25 History 1,000 mcg tablet fluticasone fur. 100 mcg-umeclid 1 inh inhalation DAILY 90 days #60 04/02/24 02/12/25 Rx 62.5 mcg-vilant 25 mcg ea inhalat.powder (Trelegy Ellipta) isosorbide mononitrate 60 mg 60 mg PO DAILY #30 tabs 01/07/25 02/12/25 Rx tablet,extended release 24 hr meloxicam 15 mg tablet 15 mg PO DAILY 01/07/25 02/12/25 History montelukast 10 mg tablet 10 mg PO HS 01/07/25 02/12/25 History carvedilol 25 mg tablet 25 mg PO BID 30 days #60 tabs 01/17/25 02/12/25 Rx furosemide 40 mg tablet 40 mg PO DAILY 30 days #30 tabs 01/17/25 02/12/25 Rx empagliflozin 10 mg tablet 10 mg PO DAILY 30 days #30 tabs 02/04/25 02/12/25 Rx (Jardiance) irbesartan 75 mg tablet 75 mg PO DAILY 30 days #30 tabs 02/04/25 02/12/25 Rx spironolactone 25 mg tablet 25 mg PO DAILY 30 days #30 tabs 02/04/25 02/12/25 Rx albuterol sulfate 90 mcg/actuation 2 inh inhalation QIDP PRN 02/12/25 02/12/25 History aerosol inhaler shortness of breath or wheezing New Prescriptions to Start Prescriptions: Allergies Allergy/AdvReac Type Severity Reaction Status Date / Time No Known Allergies Allergy Verified 02/02/25 14:30 Exam Data for Last 24 hours Vital signs and Labs for Last 24 Hours: Temp Pulse Resp BP Pulse Ox O2 Del Method O2 Flow Rate 99.5 F 84 29 H 184/94 H 98 Nasal Cannula 2 02/12/25 18:00 02/12/25 18:25 02/12/25 18:00 02/12/25 18:00 02/12/25 18:25 02/12/25 18:25 02/12/25 18:25 FiO2 25 02/12/25 10:40 Laboratory Results - last 24 hr 02/12/25 10:31: VBG pH 7.16 L, VBG pCO2 60.6 H, VBG pO2 177.0 H, VBG HCO3 20.9 L, VBG Total CO2 22.8 L, VBG O2 Saturation 99.0 H, VBG Base Excess -7.8 L, VBG Lactic Acid 4.4 H 02/12/25 10:35: WBC 14.4 H, RBC 3.99 L, Hgb 9.5 L, Hct 32.8 L, MCV 82.2, MCH 23.8 L, MCHC 29.0 L, RDW 21.9 H, Plt Count 364, MPV 10.0, Neut % (Auto) 43.9, Lymph % (Auto) 41.6, [place] % (Auto) 8.7, Eos % (Auto) 4.3, Baso % (Auto) 0.5, Neut # (Auto) 6.3, Lymph # (Auto) 6.0 H, [place] # (Auto) 1.3 H, Eos # (Auto) 0.6 H, Baso # (Auto) 0.1, Total Counted 100, Neutrophils % (Manual) 52, Lymphocytes % (Manual) 37, Monocytes % (Manual) 5, Eosinophils % (Manual) 5 H, Basophils % (Manual) 1.0, Platelet Estimate Normal, Hypochromasia 2+, Tear Drop Cells 1+, Ovalocytes 1+, [place] Cells 1+, Schistocytes 1+, D-Dimer 0.58 H, Sodium 140, Potassium 3.5, Chloride 103, Carbon Dioxide 23, Anion Gap 17.5 H, BUN 14, Creatinine 1.20 H, Estimated GFR 44 L, Est GFR ( Amer) 53 L, Glucose 201 H, Calcium 7.8 L, Magnesium 1.3 L, Total Bilirubin 0.3, AST 58 H, ALT 28, Alkaline Phosphatase 119, Troponin I < 0.01, NT-Pro-B Natriuret Pep 1130 H, Total Protein 6.3, Albumin 3.8, Globulin 2.5, Albumin/Globulin Ratio 1.5, Procalcitonin 0.100 02/12/25 11:00: Chlamy pneumoniae PCR Not detected, Adenovirus (PCR) Not detected, B. pertussis DNA (PCR) Not detected, Coronavirus OC43 (PCR) Not detected, Coronavirus HKU1 (PCR) Not detected, Coronavirus 229E (PCR) Not detected, SARS-CoV-2 (PCR) Not detected, Coronavirus NL63 (PCR) Not detected, Human Metapneumovir PCR Not detected, Influenza A (H1) PCR Not detected, Influ A (H1N1/09) PCR Not detected, Influenza A (H3) PCR Not detected, Influenza Type A (PCR) Not detected, Influenza Type B (PCR) Not detected, M. pneumoniae (PCR) Not detected, Parainfluenza 1 (PCR) Not detected, Parainfluenza 2 (PCR) Not detected, Parainfluenza 3 (PCR) Not detected, Parainfluenza 4 (PCR) Not detected, RSV (PCR) Not detected, Entero/Rhino (PCR) Not detected 02/12/25 11:20: Urine Color Yellow, Urine Appearance Clear, Urine pH 6.0, Ur Specific [place] 1.010, Urine Protein Negative, Urine Glucose (UA) Negative, Urine Ketones Negative, Urine Blood Negative, Urine Nitrate Negative, Urine Bilirubin Negative, Urine Urobilinogen 0.2, Ur Leukocyte Esterase Negative, Urine RBC None, Urine WBC None, Ur Squamous Epith Cells None, Urine Bacteria None 02/12/25 13:21: Troponin I < 0.01, NT-Pro-B Natriuret Pep 1180 H 02/12/25 13:40: VBG pH 7.30 L, VBG pCO2 56.0 H, VBG pO2 30.1, VBG HCO3 27.1, VBG Total CO2 28.8 H, VBG O2 Saturation 51.0, VBG Base Excess 0.7, VBG Lactic Acid 1.0 02/12/25 16:39: Troponin I 0.01 I & O for Last 24 hours: Intake & Output 02/09/25 02/10/25 02/11/25 02/12/25 23:59 23:59 23:59 23:59 Intake Total 210 / 210 Output Total 2475 / 2475 Balance -2265 / -2265 Weight 52.73 kg Constitutional Constitutional: no acute distress *Routine HEENT Exam Head: Present normocephalic Eye: Present EOMI and PERRL ENT: Present mucous membranes moist *Routine Neck Exam Neck: Present supple; Absent lymphadenopathy *Routine Respiratory Exam Respiratory: Present wheezes and diminished air movement; Absent CTA bilaterally *Routine Cardiovascular Exam Cardiovascular: Present RRR *Routine Abdominal Exam Abdominal: Present soft and normoactive bowel sounds; Absent tenderness *Routine Rectal Exam Rectal:: deferred *Routine Genitalia Exam Genitalia:: deferred *Routine Extremities Exam Extremities: Absent cyanosis, clubbing or edema *Routine Skin Exam Skin: Present warm; Absent rash *Routine Neurological Exam Neurological: Present alert and oriented X3 Assessment and Plan *Assessment and plan (1) Acute on chronic respiratory failure with hypoxia and hypercapnia: Status: Acute Category: Medical Code(s): J96.21 - Acute and chronic respiratory failure with hypoxia; J96.22 - Acute and chronic respiratory failure with hypercapnia Plan Loreta Waldrop is a 74-year-old female with medical history significant for severe emphysema/COPD on 3 L baseline, HFpEF, hypertension, iron deficiency anemia, mood disorder who presents with 2 to 3-day onset of progressive shortness of breath. Patient was recently discharged from our facility in stable condition 8 days ago and patient states she was doing well for a few days until she started experiencing shortness of breath again. She states she has been taking all her medications, including her breathing treatments, steroids, antibiotics, and her heart medications. Has required 5 L over the last few days. EMS found her to be saturating in the 60s with her home baseline oxygen. Workup in the ED significant for VBG pH 7.16, pCO2 60, negative respiratory panel, unremarkable CXR. She had profound airway constriction and was started on breathing treatments, steroids, and BiPAP. Over time, patient's respiratory status improved but continued to have very constricted airways. Case discussed with ED provider and is to be made to admit patient for acute on chronic hypoxic, hypercapnic respiratory failure from COPD exacerbation. #Acute on chronic hypoxic, hypercapnic respiratory failure #COPD exacerbation #Severe emphysema ? Progressive shortness of breath over the past 2 to 3 days, requiring 5 L nasal cannula above her baseline of 3 L. ? Initial VBG pH 7.16, PCO2 60. Profound airway constriction, started on BiPAP with improvement in symptoms. ? Normal respiratory panel, unremarkable CXR. Patient has been adherent to her breathing treatments at home. ? Severe emphysema may be contributing, may require BiPAP nightly. ? Started DuoNebs every 4 hours, Pulmicort twice daily. ? IV Solu-Medrol 40 mg daily. ? Pulmonology consulted, recommended continuing ceftriaxone and azithromycin day 1/5 pending cultures. ? Follow-up blood, sputum cultures. #HFpEF ? Currently euvolemic, stable. Continue home Lasix 40 mg, Jardiance 10 mg, spironolactone 25 mg. #Hypertension ? Initially had blood pressures 180s over 90s, Dr. Ratliff recommended night pride drip. Since weaned off. ? Continue home Coreg 25 mg twice daily, spironolactone 25 mg, irbesartan 75 mg. #Iron deficiency anemia ? Started ferrous sulfate 325 mg twice daily, MiraLAX. #Mood disorder ? Continue home sertraline 200 mg. #CAD ? Continue home Plavix, statin. Full code DVT prophylaxis: Lovenox 40 mg
[2025-02-12 19:13] LABS: Benzodiazepines Screen,Urine Negative ng/ml (<200)
[2025-02-12 19:14] LABS: Amphetamine/Metha Screen,Urine Negative ng/ml (<1000)
[2025-02-12 19:15] LABS: Barbiturates Screen,Urine Negative ng/ml (<200)
[2025-02-12 19:16] LABS: Methadone Screen,Urine Negative ng/ml (<300)
[2025-02-12 19:17] LABS: Opiate Screen,Urine Negative ng/ml (<300)
[2025-02-12 19:18] LABS: Phencyclidine Screen,Urine Negative ng/ml (<25)
[2025-02-12] MEDS: FERROUS SULFATE 325MG TABLET 325 MG PO (20:56)
[2025-02-12] MEDS: MONTELUKAST SODIUM 10MG TAB 10 MG PO (20:56)
[2025-02-12] MEDS: CARVEDILOL 25MG TABLET 25 MG PO (20:56)
[2025-02-12] MEDS: ATORVASTATIN 40MG TABLET 40 MG PO (20:56)
[2025-02-12] MEDS: HYDROCODONE/APAP 5/325 MG TABLET 1 TAB PO (21:18)
[2025-02-13] VITALS (25 sets, daily range): BP systolic 107–187; BP diastolic 46–159; PULSE 65–90; RESP 13–25; TEMP 36.7–37.5; O2SAT 92–98; BMI 22.1
--- NOTE | 2025-02-13 00:15 | PC.NURSE ---
Attempt made to apply bipap mask for patient. Patient only able to wear mask appprox 1min before attempting to pull mask off. She states that she cannot wear the mask due to it smothering her. TRN placed call to provider to inform of patient unable to tolerate bipap. Offer made for medication order to calm patient prior to placement. This was offered to patient who declines to wear mask at this time. Pt states that she will inform staff if her breathing worsens, and then need for mask will be reevaluated. Informed provider of patient wishes. No new orders at this time. Patient resting comfortably in bed on room air, sats >92%. Patient denies any further needs.
[2025-02-13] MEDS: IPRATROPIUM/ALBUTEROL 3 ML NEB IH ×5 (01:52→21:36)
[2025-02-13 05:58] LABS: Hematocrit 31.2 % (37.0-47.0); Hemoglobin 9.1 g/dL (12.2-16.2); Immature Granulocytes % 0.6 %; Mean Corpuscular HGB Conc 29.2 g/dL (31.8-35.4); Mean Corpuscular Hemoglobin 22.9 pg (27.0-31.2); Mean Corpuscular Volume 78.6 fl (81-99); Nucleated Red Blood Cells % 0 %; Platelet Count 297 K/mm3 (142-424); Red Blood Count 3.97 M/mm3 (4.20-5.40); Red Cell Distribution Width-SD 61.9 fL; White Blood Count 13.2 K/mm3 (4.8-10.8)
[2025-02-13 06:24] LABS: Alanine Aminotransferase 24 U/L (12-78); Albumin Level 3.8 g/dl (3.5-5.0); Albumin/Globulin Ratio 1.5 (1.1-1.8); Alkaline Phosphatase 95 U/L (38-126); Anion Gap 12.2 mEq/L (5-15); Aspartate Amino Transferase 35 U/L (14-36); Bilirubin,Total 0.3 mg/dl (0.2-1.3); Blood Urea Nitrogen 21 mg/dl (7-17); Calcium 8.4 mg/dl (8.4-10.2); Carbon Dioxide 31 mmol/L (22.0-30.0); Chloride 96 mmol/L (98-107); Creatinine Clearance Estimated 37 mL/min (50-200); Creatinine,Serum 1.10 mg/dl (0.52-1.04); Estimated Glomerular Filt Rate 48 ml/min (>60); GFR (African American) 59 ML/MIN (>60); Globulin 2.5 g/dL (1.3-3.2); Glucose 123 mg/dl (74-100); Magnesium 1.5 mg/dl (1.6-2.3); Potassium 3.2 mmoL/L (3.5-5.1); Sodium 136 mmol/L (136-145); Total Protein,Serum 6.3 g/dl (6.3-8.2)
[2025-02-13 08:09] LABS: Lactate Venous 1.4 mmol/L (0.4-2.0); VBG HCO3 27.2 mmol/L (23-30); VBG PCO2 45.0 mmol/L (35-51); VBG PH 7.40 mmol/L (7.31-7.41); VBG PO2 50.3 mmol/L (28-40)
[2025-02-13] MEDS: SERTRALINE 100MG TABLET 200 MG PO (08:40)
[2025-02-13] MEDS: CARVEDILOL 25MG TABLET 25 MG PO ×2 (08:40→20:46)
[2025-02-13] MEDS: EMPAGLIFLOZIN 10MG TABLET 10 MG PO (08:40)
[2025-02-13] MEDS: FUROSEMIDE 40 MG TABLET PO (08:40)
[2025-02-13] MEDS: ISOSORBIDE MONO 60MG TAB.ER.24H 60 MG PO (08:40)
[2025-02-13] MEDS: IRBESARTAN 75MG TABLET 75 MG PO (08:40)
[2025-02-13] MEDS: CLOPIDOGREL 75MG TAB 75 MG PO (08:40)
[2025-02-13] MEDS: SPIRONOLACTONE 25MG TABLET 25 MG PO (08:40)
[2025-02-13] MEDS: MAGNESIUM SULFATE IN WATER 2 GM/50 ML PIGGYBACK IV ×2 (08:41→10:03)
[2025-02-13] MEDS: POTASSIUM CHLORIDE 20MEQ TAB 40 MEQ PO ×2 (08:41→11:50)
[2025-02-13] MEDS: FERROUS SULFATE 325MG TABLET 325 MG PO ×2 (08:41→20:46)
[2025-02-13] MEDS: POLYETHYLENE GLYCOL 3350 17 GM PACKET PO (08:41)
[2025-02-13] MEDS: HYDROCODONE/APAP 5/325 MG TABLET 1 TAB PO ×2 (08:45→20:48)
[2025-02-13] MEDS: METHYLPREDNISOLONE SOD SUCC 40MG VIAL 40 MG IV (08:51)
--- NOTE | 2025-02-13 09:28 | EXP.PULM.PN ---
Subjective *Date: 02/13/25 *Time: 12:12 Interval history: No acute respiratory vents overnight. Tolerated BiPAP well. Improving respiratory symptoms. Pulmonology Exam Inpatient Vital signs and Labs for Last 24 Hours: Temp Pulse Resp BP Pulse Ox O2 Del Method O2 Flow Rate 99.5 F 80 22 173/82 H 95 Room Air 4 02/13/25 09:01 02/13/25 09:01 02/13/25 09:01 02/13/25 09:01 02/13/25 09:01 02/13/25 09:01 02/13/25 07:00 FiO2 02/12/25 20:07 Laboratory Results - last 24 hr 02/12/25 10:31: VBG pH 7.16 L, VBG pCO2 60.6 H, VBG pO2 177.0 H, VBG HCO3 20.9 L, VBG Total CO2 22.8 L, VBG O2 Saturation 99.0 H, VBG Base Excess -7.8 L, VBG Lactic Acid 4.4 H 02/12/25 10:35: WBC 14.4 H, RBC 3.99 L, Hgb 9.5 L, Hct 32.8 L, MCV 82.2, MCH 23.8 L, MCHC 29.0 L, RDW 21.9 H, Plt Count 364, MPV 10.0, Neut % (Auto) 43.9, Lymph % (Auto) 41.6, [place] % (Auto) 8.7, Eos % (Auto) 4.3, Baso % (Auto) 0.5, Neut # (Auto) 6.3, Lymph # (Auto) 6.0 H, [place] # (Auto) 1.3 H, Eos # (Auto) 0.6 H, Baso # (Auto) 0.1, Total Counted 100, Neutrophils % (Manual) 52, Lymphocytes % (Manual) 37, Monocytes % (Manual) 5, Eosinophils % (Manual) 5 H, Basophils % (Manual) 1.0, Platelet Estimate Normal, Hypochromasia 2+, Tear Drop Cells 1+, Ovalocytes 1+, Aline Cells 1+, Schistocytes 1+, D-Dimer 0.58 H, Sodium 140, Potassium 3.5, Chloride 103, Carbon Dioxide 23, Anion Gap 17.5 H, BUN 14, Creatinine 1.20 H, Estimated GFR 44 L, Est GFR ( Amer) 53 L, Glucose 201 H, Calcium 7.8 L, Magnesium 1.3 L, Total Bilirubin 0.3, AST 58 H, ALT 28, Alkaline Phosphatase 119, Troponin I < 0.01, NT-Pro-B Natriuret Pep 1130 H, Total Protein 6.3, Albumin 3.8, Globulin 2.5, Albumin/Globulin Ratio 1.5, Procalcitonin 0.100 02/12/25 11:00: Chlamy pneumoniae PCR Not detected, Adenovirus (PCR) Not detected, B. pertussis DNA (PCR) Not detected, Coronavirus OC43 (PCR) Not detected, Coronavirus HKU1 (PCR) Not detected, Coronavirus 229E (PCR) Not detected, SARS-CoV-2 (PCR) Not detected, Coronavirus NL63 (PCR) Not detected, Human Metapneumovir PCR Not detected, Influenza A (H1) PCR Not detected, Influ A (H1N1/) PCR Not detected, Influenza A (H3) PCR Not detected, Influenza Type A (PCR) Not detected, Influenza Type B (PCR) Not detected, M. pneumoniae (PCR) Not detected, Parainfluenza 1 (PCR) Not detected, Parainfluenza 2 (PCR) Not detected, Parainfluenza 3 (PCR) Not detected, Parainfluenza 4 (PCR) Not detected, RSV (PCR) Not detected, Entero/Rhino (PCR) Not detected 02/12/25 11:20: Urine Color Yellow, Urine Appearance Clear, Urine pH 6.0, Ur Specific [place] 1.010, Urine Protein Negative, Urine Glucose (UA) Negative, Urine Ketones Negative, Urine Blood Negative, Urine Nitrate Negative, Urine Bilirubin Negative, Urine Urobilinogen 0.2, Ur Leukocyte Esterase Negative, Urine RBC None, Urine WBC None, Ur Squamous Epith Cells None, Urine Bacteria None 02/12/25 13:21: Troponin I < 0.01, NT-Pro-B Natriuret Pep 1180 H 02/12/25 13:40: VBG pH 7.30 L, VBG pCO2 56.0 H, VBG pO2 30.1, VBG HCO3 27.1, VBG Total CO2 28.8 H, VBG O2 Saturation 51.0, VBG Base Excess 0.7, VBG Lactic Acid 1.0 02/12/25 16:39: Troponin I 0.01 02/12/25 18:41: Urine Opiates Screen Negative, Urine Methadone Screen Negative, Ur Barbituates Screen Negative, Ur Phencyclidine Scrn Negative, Ur Amphetamines Screen Negative, U Benzodiazepines Scrn Negative, Urine Cocaine Screen Negative, U Marijuana (THC) Screen Negative 02/13/25 04:50: WBC 13.2 H, RBC 3.97 L, Hgb 9.1 L, Hct 31.2 L, MCV 78.6 L, MCH 22.9 L, MCHC 29.2 L, RDW 21.8 H, Plt Count 297, MPV 10.3, Neut % (Auto) 79.6, Lymph % (Auto) 10.3, [place] % (Auto) 9.4 H, Eos % (Auto) 0.0 L, Baso % (Auto) 0.1, Neut # (Auto) 10.5 H, Lymph # (Auto) 1.4, [place] # (Auto) 1.3 H, Eos # (Auto) 0.0, Baso # (Auto) 0.0, Sodium 136, Potassium 3.2 L, Chloride 96 L, Carbon Dioxide 31 H, Anion Gap 12.2, BUN 21 H D, Creatinine 1.10 H, Estimated Creat Clear 37, Estimated GFR 48 L, Est GFR ( Amer) 59, Glucose 123 H D, Calcium 8.4, Magnesium 1.5 L D, Total Bilirubin 0.3, AST 35 D, ALT 24, Alkaline Phosphatase 95, Total Protein 6.3, Albumin 3.8, Globulin 2.5, Albumin/Globulin Ratio 1.5 02/13/25 08:10: VBG pH 7.40, VBG pCO2 45.0, VBG pO2 50.3 H, VBG HCO3 27.2, VBG Total CO2 28.6 H, VBG O2 Saturation 85.0 H, VBG Base Excess 2.4 H, VBG Lactic Acid 1.4 Temp Pulse Resp BP Pulse Ox O2 Del Method O2 Flow Rate 98.8 F 78 22 163/74 H 96 Nasal Cannula 4 02/12/25 15:00 02/12/25 15:00 02/12/25 15:00 02/12/25 15:00 02/12/25 15:00 02/12/25 15:00 02/12/25 15:00 FiO2 25 02/12/25 10:40 Laboratory Results - last 24 hr 02/12/25 10:31: VBG pH 7.16 L, VBG pCO2 60.6 H, VBG pO2 177.0 H, VBG HCO3 20.9 L, VBG Total CO2 22.8 L, VBG O2 Saturation 99.0 H, VBG Base Excess -7.8 L, VBG Lactic Acid 4.4 H 02/12/25 10:35: WBC 14.4 H, RBC 3.99 L, Hgb 9.5 L, Hct 32.8 L, MCV 82.2, MCH 23.8 L, MCHC 29.0 L, RDW 21.9 H, Plt Count 364, MPV 10.0, Neut % (Auto) 43.9, Lymph % (Auto) 41.6, [place] % (Auto) 8.7, Eos % (Auto) 4.3, Baso % (Auto) 0.5, Neut # (Auto) 6.3, Lymph # (Auto) 6.0 H, [place] # (Auto) 1.3 H, Eos # (Auto) 0.6 H, Baso # (Auto) 0.1, Total Counted 100, Neutrophils % (Manual) 52, Lymphocytes % (Manual) 37, Monocytes % (Manual) 5, Eosinophils % (Manual) 5 H, Basophils % (Manual) 1.0, Platelet Estimate Normal, Hypochromasia 2+, Tear Drop Cells 1+, Ovalocytes 1+, Aline Cells 1+, Schistocytes 1+, D-Dimer 0.58 H, Sodium 140, Potassium 3.5, Chloride 103, Carbon Dioxide 23, Anion Gap 17.5 H, BUN 14, Creatinine 1.20 H, Estimated GFR 44 L, Est GFR ( Amer) 53 L, Glucose 201 H, Calcium 7.8 L, Magnesium 1.3 L, Total Bilirubin 0.3, AST 58 H, ALT 28, Alkaline Phosphatase 119, Troponin I < 0.01, NT-Pro-B Natriuret Pep 1130 H, Total Protein 6.3, Albumin 3.8, Globulin 2.5, Albumin/Globulin Ratio 1.5, Procalcitonin 0.100 02/12/25 11:00: Chlamy pneumoniae PCR Not detected, Adenovirus (PCR) Not detected, B. pertussis DNA (PCR) Not detected, Coronavirus OC43 (PCR) Not detected, Coronavirus HKU1 (PCR) Not detected, Coronavirus 229E (PCR) Not detected, SARS-CoV-2 (PCR) Not detected, Coronavirus NL63 (PCR) Not detected, Human Metapneumovir PCR Not detected, Influenza A (H1) PCR Not detected, Influ A (H1N1/09) PCR Not detected, Influenza A (H3) PCR Not detected, Influenza Type A (PCR) Not detected, Influenza Type B (PCR) Not detected, M. pneumoniae (PCR) Not detected, Parainfluenza 1 (PCR) Not detected, Parainfluenza 2 (PCR) Not detected, Parainfluenza 3 (PCR) Not detected, Parainfluenza 4 (PCR) Not detected, RSV (PCR) Not detected, Entero/Rhino (PCR) Not detected 02/12/25 11:20: Urine Color Yellow, Urine Appearance Clear, Urine pH 6.0, Ur Specific [place] 1.010, Urine Protein Negative, Urine Glucose (UA) Negative, Urine Ketones Negative, Urine Blood Negative, Urine Nitrate Negative, Urine Bilirubin Negative, Urine Urobilinogen 0.2, Ur Leukocyte Esterase Negative, Urine RBC None, Urine WBC None, Ur Squamous Epith Cells None, Urine Bacteria None 02/12/25 13:21: Troponin I < 0.01, NT-Pro-B Natriuret Pep 1180 H 02/12/25 13:40: VBG pH 7.30 L, VBG pCO2 56.0 H, VBG pO2 30.1, VBG HCO3 27.1, VBG Total CO2 28.8 H, VBG O2 Saturation 51.0, VBG Base Excess 0.7, VBG Lactic Acid 1.0 I & O for Labs for Last 24 Hours: Intake & Output 02/10/25 02/11/25 02/12/25 02/13/25 23:59 23:59 23:59 23:59 Intake Total 210 / 920 820 / 820 Output Total 2475 / 2475 200 / 200 Balance -2265 / -1555 620 / 620 Weight 116 lb 4 oz 117 lb 4.8 oz Intake & Output 02/09/25 02/10/25 02/11/25 02/12/25 23:59 23:59 23:59 23:59 Output Total 1400 / 1400 Balance -1400 / -1400 Weight 116 lb 4 oz Constitutional: Present moderate distress Head: Present normocephalic and atraumatic ENT: Present normal exam, normal oropharynx and mucous membranes moist Neck: Present normal inspection and full ROM Respiratory: Present prolonged expiratory phase, respiratory distress, diminished air movement and able to speak in complete sentences; Absent rhonchi or wheezes Cardiac: Present S1/S2, Tachycardia and radial pulses present GI: Present soft and distention; Absent tenderness or guarding Rectal (female): Present deferred (female): Present deferred Skin: Present intact; Absent cyanosis or jaundice Neuro: Present alert, awake and oriented x 3 Extremities: Present normal inspection; Absent clubbing or cyanosis Psychiatric: Present normal affect and cooperative Assessment and Plan *Assessment and plan (1) Acute on chronic respiratory failure with hypoxia and hypercapnia: Status: Acute Category: Medical Code(s): J96.21 - Acute and chronic respiratory failure with hypoxia; J96.22 - Acute and chronic respiratory failure with hypercapnia (2) Acute exacerbation of chronic obstructive pulmonary disease: Status: Acute Category: Medical Code(s): J44.1 - Chronic obstructive pulmonary disease with (acute) exacerbation Plan Ms. Santiago is a 74-year-old female with history of COPD, chronic hypoxic respiratory failure on 3 L oxygen supplementation at baseline, preserved EF heart failure, hypertension recently seen in the hospital for COPD exacerbation hypercarbic respiratory failure discharged home on antibiotics and steroids presented to the ER again with worsening respiratory distress hypercarbic respiratory failure needing noninvasive ventilator therapy and pulmonary was called for further evaluation and management. Patient admits compliance with her inhaler therapies and nebulization therapies upon discharge. Afebrile. Hemodynamically stable. Mild neutrophilic predominant leukocytosis. Chest x-ray upon admission no obvious pulmonary parenchymal abnormalities. Hyperinflated lungs noted. Comprehensive respiratory viral PCR panel negative. Blood gas upon admission severe hypercarbic respiratory failure with pH of 7.16 and pCO2 of 60.6, improved to 7.30 and 56.0. Currently receiving ceftriaxone azithromycin along with DuoNebs every 4 hours along with Pulmicort every 12 scheduled. On examination moderate respiratory distress. On 2 L saturating 95%. No significant wheezing noted on auscultation. Interval update: No acute respiratory vents overnight. Admits compliance with NIV. Continue to receive nebulization therapies and steroids. Blood gas from this morning normalized with a pH of 7.40 and pCO2 of 45.0. Plan: Continue DuoNebs every 4 hours along with Pulmicort twice daily Methylprednisolone 40 mg IV daily Continue ceftriaxone azithromycin pending culture results, will de-escalate antibiotics pending clinical improvement Continue O2 supplementation to maintain O2 sat goal of 90% and above. Currently on 2l NC
[2025-02-13] MEDS: CEFTRIAXONE 1 GM 1 GM in 0.9 % SODIUM CHLORIDE 50 ML IV (11:50)
[2025-02-13] MEDS: AZITHROMYCIN 500 MG in 0.9 % SODIUM CHLORIDE 250 ML 250 MG IV (12:27)
[2025-02-13] MEDS: SODIUM CHLORIDE 3% 15ML NEB 3 ML IH (14:21)
--- NOTE | 2025-02-13 15:43 | P.PN_ITS ---
Subjective Subjective Date: 02/13/25 Time: 09:30 Interval history: BP and resp status improving. Weaned off IV meds. Exam Data for Last 24 hours Vital signs and Labs for Last 24 Hours: Temp Pulse Resp BP Pulse Ox O2 Del Method O2 Flow Rate 98.1 F 71 18 107/76 L 95 Nasal Cannula 1 02/13/25 12:00 02/13/25 14:22 02/13/25 14:22 02/13/25 12:00 02/13/25 12:00 02/13/25 15:31 02/13/25 15:31 FiO2 25 02/12/25 20:07 Laboratory Results - last 24 hr 02/12/25 16:39: Troponin I 0.01 02/12/25 18:41: Urine Opiates Screen Negative, Urine Methadone Screen Negative, Ur Barbituates Screen Negative, Ur Phencyclidine Scrn Negative, Ur Amphetamines Screen Negative, U Benzodiazepines Scrn Negative, Urine Cocaine Screen Negative, U Marijuana (THC) Screen Negative 02/13/25 04:50: WBC 13.2 H, RBC 3.97 L, Hgb 9.1 L, Hct 31.2 L, MCV 78.6 L, MCH 22.9 L, MCHC 29.2 L, RDW 21.8 H, Plt Count 297, MPV 10.3, Neut % (Auto) 79.6, Lymph % (Auto) 10.3, [place] % (Auto) 9.4 H, Eos % (Auto) 0.0 L, Baso % (Auto) 0.1, Neut # (Auto) 10.5 H, Lymph # (Auto) 1.4, [place] # (Auto) 1.3 H, Eos # (Auto) 0.0, Baso # (Auto) 0.0, Sodium 136, Potassium 3.2 L, Chloride 96 L, Carbon Dioxide 31 H, Anion Gap 12.2, BUN 21 H D, Creatinine 1.10 H, Estimated Creat Clear 37, Estimated GFR 48 L, Est GFR ( Amer) 59, Glucose 123 H D, Calcium 8.4, Magnesium 1.5 L D, Total Bilirubin 0.3, AST 35 D, ALT 24, Alkaline Phosphatase 95, Total Protein 6.3, Albumin 3.8, Globulin 2.5, Albumin/Globulin Ratio 1.5 02/13/25 08:10: VBG pH 7.40, VBG pCO2 45.0, VBG pO2 50.3 H, VBG HCO3 27.2, VBG Total CO2 28.6 H, VBG O2 Saturation 85.0 H, VBG Base Excess 2.4 H, VBG Lactic A pasquale 1.4 I & O for Last 24 hours: Intake & Output 02/10/25 02/11/25 02/12/25 02/13/25 23:59 23:59 23:59 23:59 Intake Total 210 / 920 1040 / 1040 Output Total 2475 / 2475 200 / 200 Balance -2265 / -1555 840 / 840 Weight 116 lb 4 oz 117 lb 4.8 oz Microbiology Reports for the Last 24 Hours: Microbiology 02/12/25 10:50 Blood Blood Culture - Preliminary NO GROWTH AFTER 24 HOURS 02/12/25 10:35 Blood Blood Culture - Preliminary NO GROWTH AFTER 24 HOURS Constitutional Constitutional: no acute distress and cooperative *Routine HEENT Exam Eye: Present PERRL *Routine Respiratory Exam Respiratory: Present CTA bilaterally; Absent accessory muscle use, wheezes or crackles Comments: Severely reduced airflow throughout *Routine Cardiovascular Exam Cardiovascular: Present RRR, Normal S1 and Normal S2; Absent murmur, gallop or rubs *Routine Abdominal Exam Abdominal: Present soft; Absent tenderness *Routine Extremities Exam Extremities: Present pulses intact; Absent cyanosis or edema *Routine Skin Exam Skin: Present intact; Absent erythema or wounds *Routine Neurological Exam Neurological: Present alert and oriented X3 Routine Psychiatric Exam Psychiatric: Present cooperative Progress Note: A&P Assessment and plan (1) Acute on chronic respiratory failure with hypoxia and hypercapnia: Status: Acute (2) Hypertension: Status: Acute (3) (HFpEF) heart failure with preserved ejection fraction: Status: Acute (4) Pulmonary cachexia due to chronic obstructive pulmonary disease: Status: Acute Assessment and Plan Assessment and Plan for All Diagnoses:: Hypertension accelerated - Exacerbation secondary to acute on chronic respiratory failure - Symptoms improving with nebulizer treatment - Cont home meds Acute on chronic hypoxic hypercarbic respiratory failure - Severe emphysema on 5 L/min at home - Steroids, nebs, antibiotics per pulmonology - improving - plans per Pulm HFpEF - Echo 2023 showed mild RV dilation with normal BiV function - proBNP is 1100 here, no acute findings on chest x-ray - Repeat echo is pending. CAD status post JENNY many years ago - Left heart cath January 2025-medical management recommended - Patient denies anginal chest pain here - EKG sinus tach 109, no acute ischemic changes - Continue Plavix, statin, isosorbide CV stable, no further inpatient recommendations at this time. She needs OP f/u with us 1-2 weeks.
--- NOTE | 2025-02-13 16:39 | PC.NURSE ---
Pt has appeared to have rested well in her room this shift. pt lung sounds upon general afternoon reassessment shows tight/diminished lung sounds with scattered rhonchi. pt abdomen is soft and non tender, bowel sounds are active in all quads. nad noted, pt is a/o x 4 pt noted to be eating her snacks and drinks from home.
--- NOTE | 2025-02-13 16:52 | PC.NURSE ---
1648 Called and notified RT that order for overnight pulse ox was entered. Staff unable to complete overnight study tonight, states that it will need to be set up and completed tomorrow. [address] Son that overnight study will need to be completed tomorrow night. no new orders from at this time.
--- NOTE | 2025-02-13 18:04 | PC.NURSE ---
pt transported off of unit to room 203 by nathen medina and nathen kelley at 1802
[2025-02-13] MEDS: BUDESONIDE 0.5MG/2ML NEB 0.5 MG IH (18:22)
[2025-02-13] MEDS: MONTELUKAST SODIUM 10MG TAB 10 MG PO (20:46)
[2025-02-13] MEDS: ATORVASTATIN 40MG TABLET 40 MG PO (20:46)
--- NOTE | 2025-02-13 22:33 | EXP.PN ---
Subjective *Date: 02/13/25 *Time: 22:33 Interval history: Patient feeling better, but continues to have restricted aiways. Exam Data for Last 24 hours Vital signs and Labs for Last 24 Hours: Temp Pulse Resp BP Pulse Ox O2 Del Method O2 Flow Rate 98.3 F 68 17 125/65 97 Nasal Cannula 2 02/13/25 20:00 02/13/25 21:39 02/13/25 20:00 02/13/25 20:00 02/13/25 20:00 02/13/25 21:00 02/13/25 21:00 FiO2 25 02/12/25 20:07 Laboratory Results - last 24 hr 02/13/25 04:50: WBC 13.2 H, RBC 3.97 L, Hgb 9.1 L, Hct 31.2 L, MCV 78.6 L, MCH 22.9 L, MCHC 29.2 L, RDW 21.8 H, Plt Count 297, MPV 10.3, Neut % (Auto) 79.6, Lymph % (Auto) 10.3, [place] % (Auto) 9.4 H, Eos % (Auto) 0.0 L, Baso % (Auto) 0.1, Neut # (Auto) 10.5 H, Lymph # (Auto) 1.4, [place] # (Auto) 1.3 H, Eos # (Auto) 0.0, Baso # (Auto) 0.0, Sodium 136, Potassium 3.2 L, Chloride 96 L, Carbon Dioxide 31 H, Anion Gap 12.2, BUN 21 H D, Creatinine 1.10 H, Estimated Creat Clear 37, Estimated GFR 48 L, Est GFR ( Amer) 59, Glucose 123 H D, Calcium 8.4, Magnesium 1.5 L D, Total Bilirubin 0.3, AST 35 D, ALT 24, Alkaline Phosphatase 95, Total Protein 6.3, Albumin 3.8, Globulin 2.5, Albumin/Globulin Ratio 1.5 02/13/25 08:10: VBG pH 7.40, VBG pCO2 45.0, VBG pO2 50.3 H, VBG HCO3 27.2, VBG Total CO2 28.6 H, VBG O2 Saturation 85.0 H, VBG Base Excess 2.4 H, VBG Lactic Acid 1.4 I & O for Last 24 hours: Intake & Output 02/10/25 02/11/25 02/12/25 02/13/25 23:59 23:59 23:59 23:59 Intake Total 210 / 920 1640 / 1640 Output Total 2475 / 2475 850 / 850 Balance -2265 / -1555 790 / 790 Weight 52.73 kg 53.206 kg Microbiology Reports for the Last 24 Hours: Microbiology 02/12/25 10:50 Blood Blood Culture - Preliminary NO GROWTH AFTER 24 HOURS 02/12/25 10:35 Blood Blood Culture - Preliminary NO GROWTH AFTER 24 HOURS Constitutional Constitutional: no acute distress *Routine HEENT Exam Head: Present normocephalic Eye: Present EOMI and PERRL ENT: Present mucous membranes moist *Routine Neck Exam Neck: Present supple; Absent lymphadenopathy *Routine Respiratory Exam Respiratory: Present wheezes and diminished air movement; Absent CTA bilaterally *Routine Cardiovascular Exam Cardiovascular: Present RRR *Routine Abdominal Exam Abdominal: Present soft and normoactive bowel sounds; Absent tenderness *Routine Extremities Exam Extremities: Absent cyanosis, clubbing or edema *Routine Skin Exam Skin: Present warm; Absent rash *Routine Neurological Exam Neurological: Present alert and oriented X3 Assessment and Plan *Assessment and plan (1) Acute on chronic respiratory failure with hypoxia and hypercapnia: Status: Acute Category: Medical Code(s): J96.21 - Acute and chronic respiratory failure with hypoxia; J96.22 - Acute and chronic respiratory failure with hypercapnia Misael Waldrop is a 74-year-old female with medical history significant for severe emphysema/COPD on 3 L baseline, HFpEF, hypertension, iron deficiency anemia, mood disorder who presents with 2 to 3-day onset of progressive shortness of breath. Patient was recently discharged from our facility in stable condition 8 days ago and patient states she was doing well for a few days until she started experiencing shortness of breath again. She states she has been taking all her medications, including her breathing treatments, steroids, antibiotics, and her heart medications. Has required 5 L over the last few days. EMS found her to be saturating in the 60s with her home baseline oxygen. Workup in the ED significant for VBG pH 7.16, pCO2 60, negative respiratory panel, unremarkable CXR. She had profound airway constriction and was started on breathing treatments, steroids, and BiPAP. Over time, patient's respiratory status improved but continued to have very constricted airways. Case discussed with ED provider and is to be made to admit patient for acute on chronic hypoxic, hypercapnic respiratory failure from COPD exacerbation. #Acute on chronic hypoxic, hypercapnic respiratory failure #COPD exacerbation #Severe emphysema ? Progressive shortness of breath over the past 2 to 3 days, requiring 5 L nasal cannula above her baseline of 3 L. ? Initial VBG pH 7.16, PCO2 60. Profound airway constriction, started on BiPAP with improvement in symptoms. ? Normal respiratory panel, unremarkable CXR. Patient has been adherent to her breathing treatments at home. ? Continue DuoNebs every 4 hours, Pulmicort twice daily. ? IV Solu-Medrol 40 mg daily. ? Pulmonology consulted, recommended continuing ceftriaxone and azithromycin day 2/5 pending cultures. Also recommends Bipap. Overnight pulse ox test with ABG in the morning. ? Follow-up blood, sputum cultures. #HFpEF ? Currently euvolemic, stable. Continue home Lasix 40 mg, Jardiance 10 mg, spironolactone 25 mg. #Hypertension ? Initially had blood pressures 180s over 90s, Dr. Ratliff recommended night pride drip. Since weaned off. ? Continue home Coreg 25 mg twice daily, spironolactone 25 mg, irbesartan 75 mg. #Iron deficiency anemia ? Started ferrous sulfate 325 mg twice daily, MiraLAX. #Mood disorder ? Continue home sertraline 200 mg. #CAD ? Continue home Plavix, statin. Full code DVT prophylaxis: Lovenox 40 mg
[2025-02-14] VITALS: BP 118/61; PULSE 79; RESP 14; TEMP 36.8; O2SAT 91
[2025-02-14] MEDS: IPRATROPIUM/ALBUTEROL 3 ML NEB IH ×3 (02:18→09:50)
[2025-02-14 04:00] VITALS: BP 100/44; PULSE 74; RESP 16; TEMP 36.4; O2SAT 91; BMI 22.6
--- NOTE | 2025-02-14 04:39 | PC.NURSE ---
patient has rested well tonight. a&o x 4. 2L NC and wearing the oxygen monitor placed by RT. no acute changes. voiding per BSC without difficulty since removing cath on dayshift.
[2025-02-14 06:08] VITALS: PULSE 76; PULSE 78; O2SAT 93
[2025-02-14] MEDS: BUDESONIDE 0.5MG/2ML NEB 0.5 MG IH (06:08)
[2025-02-14 06:53] LABS: Hematocrit 30.0 % (37.0-47.0); Hemoglobin 8.9 g/dL (12.2-16.2); Immature Granulocytes % 0.5 %; Mean Corpuscular HGB Conc 29.7 g/dL (31.8-35.4); Mean Corpuscular Hemoglobin 24.1 pg (27.0-31.2); Mean Corpuscular Volume 81.3 fl (81-99); Nucleated Red Blood Cells % 0 %; Platelet Count 302 K/mm3 (142-424); Red Blood Count 3.69 M/mm3 (4.20-5.40); Red Cell Distribution Width-SD 66.6 fL; White Blood Count 14.1 K/mm3 (4.8-10.8)
[2025-02-14 07:16] LABS: Alanine Aminotransferase 20 U/L (12-78); Albumin Level 3.6 g/dl (3.5-5.0); Albumin/Globulin Ratio 1.5 (1.1-1.8); Alkaline Phosphatase 100 U/L (38-126); Anion Gap 12.9 mEq/L (5-15); Aspartate Amino Transferase 26 U/L (14-36); Bilirubin,Total 0.3 mg/dl (0.2-1.3); Blood Urea Nitrogen 24 mg/dl (7-17); Calcium 8.2 mg/dl (8.4-10.2); Carbon Dioxide 28 mmol/L (22.0-30.0); Chloride 99 mmol/L (98-107); Creatinine Clearance Estimated 35 mL/min (50-200); Creatinine,Serum 1.20 mg/dl (0.52-1.04); Estimated Glomerular Filt Rate 44 ml/min (>60); GFR (African American) 53 ML/MIN (>60); Globulin 2.4 g/dL (1.3-3.2); Glucose 116 mg/dl (74-100); Magnesium 2.4 mg/dl (1.6-2.3); Potassium 3.9 mmoL/L (3.5-5.1); Sodium 136 mmol/L (136-145); Total Protein,Serum 6.0 g/dl (6.3-8.2)
[2025-02-14 08:00] VITALS: BP 110/50; PULSE 75; RESP 18; TEMP 36.6; O2SAT 98
[2025-02-14] MEDS: POLYETHYLENE GLYCOL 3350 17 GM PACKET PO (08:23)
[2025-02-14] MEDS: CARVEDILOL 25MG TABLET 25 MG PO (08:24)
[2025-02-14] MEDS: IRBESARTAN 75MG TABLET 75 MG PO (08:24)
[2025-02-14] MEDS: ISOSORBIDE MONO 60MG TAB.ER.24H 60 MG PO (08:24)
[2025-02-14] MEDS: SERTRALINE 100MG TABLET 200 MG PO (08:24)
[2025-02-14] MEDS: FERROUS SULFATE 325MG TABLET 325 MG PO (08:24)
[2025-02-14] MEDS: FUROSEMIDE 40 MG TABLET PO (08:24)
[2025-02-14] MEDS: CLOPIDOGREL 75MG TAB 75 MG PO (08:24)
[2025-02-14] MEDS: EMPAGLIFLOZIN 10MG TABLET 10 MG PO (08:24)
[2025-02-14] MEDS: METHYLPREDNISOLONE SOD SUCC 40MG VIAL 40 MG IV (08:24)
[2025-02-14] MEDS: SPIRONOLACTONE 25MG TABLET 25 MG PO (08:25)
[2025-02-14] MEDS: HYDROCODONE/APAP 5/325 MG TABLET 1 TAB PO (08:30)
--- NOTE | 2025-02-14 08:30 | EXP.PULM.PN ---
Subjective *Date: 02/14/25 *Time: 09:39 Interval history: No acute respiratory events overnight. Patient admits continued improvement in her respiratory symptoms. Pulmonology Exam Inpatient Vital signs and Labs for Last 24 Hours: Temp Pulse Resp BP Pulse Ox O2 Del Method O2 Flow Rate 97.6 F 76 16 100/44 L 93 L Nasal Cannula 2 02/14/25 04:00 02/14/25 06:08 02/14/25 04:00 02/14/25 04:00 02/14/25 06:08 02/14/25 06:48 02/14/25 06:48 FiO2 25 02/12/25 20:07 Laboratory Results - last 24 hr 02/14/25 06:33: WBC 14.1 H, RBC 3.69 L, Hgb 8.9 L, Hct 30.0 L, MCV 81.3, MCH 24.1 L, MCHC 29.7 L, RDW 22.5 H, Plt Count 302, MPV 10.2, Neut % (Auto) 77.4, Lymph % (Auto) 14.0, [place] % (Auto) 7.8, Eos % (Auto) 0.2, Baso % (Auto) 0.1, Neut # (Auto) 10.9 H, Lymph # (Auto) 2.0, [place] # (Auto) 1.1 H, Eos # (Auto) 0.0, Baso # (Auto) 0.0, Sodium 136, Potassium 3.9 D, Chloride 99, Carbon Dioxide 28, Anion Gap 12.9, BUN 24 H, Creatinine 1.20 H, Estimated Creat Clear 35, Estimated GFR 44 L, Est GFR ( Amer) 53 L, Glucose 116 H, Calcium 8.2 L, Magnesium 2.4 H D, Total Bilirubin 0.3, AST 26 D, ALT 20, Alkaline Phosphatase 100, Total Protein 6.0 L, Albumin 3.6, Globulin 2.4, Albumin/Globulin Ratio 1.5 Temp Pulse Resp BP Pulse Ox O2 Del Method O2 Flow Rate 98.8 F 78 22 163/74 H 96 Nasal Cannula 4 02/12/25 15:00 02/12/25 15:00 02/12/25 15:00 02/12/25 15:00 02/12/25 15:00 02/12/25 15:00 02/12/25 15:00 FiO2 25 02/12/25 10:40 Laboratory Results - last 24 hr 02/12/25 10:31: VBG pH 7.16 L, VBG pCO2 60.6 H, VBG pO2 177.0 H, VBG HCO3 20.9 L, VBG Total CO2 22.8 L, VBG O2 Saturation 99.0 H, VBG Base Excess -7.8 L, VBG Lactic Acid 4.4 H 02/12/25 10:35: WBC 14.4 H, RBC 3.99 L, Hgb 9.5 L, Hct 32.8 L, MCV 82.2, MCH 23.8 L, MCHC 29.0 L, RDW 21.9 H, Plt Count 364, MPV 10.0, Neut % (Auto) 43.9, Lymph % (Auto) 41.6, [place] % (Auto) 8.7, Eos % (Auto) 4.3, Baso % (Auto) 0.5, Neut # (Auto) 6.3, Lymph # (Auto) 6.0 H, [place] # (Auto) 1.3 H, Eos # (Auto) 0.6 H, Baso # (Auto) 0.1, Total Counted 100, Neutrophils % (Manual) 52, Lymphocytes % (Manual) 37, Monocytes % (Manual) 5, Eosinophils % (Manual) 5 H, Basophils % (Manual) 1.0, Platelet Estimate Normal, Hypochromasia 2+, Tear Drop Cells 1+, Ovalocytes 1+, [place] Cells 1+, Schistocytes 1+, D-Dimer 0.58 H, Sodium 140, Potassium 3.5, Chloride 103, Carbon Dioxide 23, Anion Gap 17.5 H, BUN 14, Creatinine 1.20 H, Estimated GFR 44 L, Est GFR ( Amer) 53 L, Glucose 201 H, Calcium 7.8 L, Magnesium 1.3 L, Total Bilirubin 0.3, AST 58 H, ALT 28, Alkaline Phosphatase 119, Troponin I < 0.01, NT-Pro-B Natriuret Pep 1130 H, Total Protein 6.3, Albumin 3.8, Globulin 2.5, Albumin/Globulin Ratio 1.5, Procalcitonin 0.100 02/12/25 11:00: Chlamy pneumoniae PCR Not detected, Adenovirus (PCR) Not detected, B. pertussis DNA (PCR) Not detected, Coronavirus OC43 (PCR) Not detected, Coronavirus HKU1 (PCR) Not detected, Coronavirus 229E (PCR) Not detected, SARS-CoV-2 (PCR) Not detected, Coronavirus NL63 (PCR) Not detected, Human Metapneumovir PCR Not detected, Influenza A (H1) PCR Not detected, Influ A (H1N1/09) PCR Not detected, Influenza A (H3) PCR Not detected, Influenza Type A (PCR) Not detected, Influenza Type B (PCR) Not detected, M. pneumoniae (PCR) Not detected, Parainfluenza 1 (PCR) Not detected, Parainfluenza 2 (PCR) Not detected, Parainfluenza 3 (PCR) Not detected, Parainfluenza 4 (PCR) Not detected, RSV (PCR) Not detected, Entero/Rhino (PCR) Not detected 02/12/25 11:20: Urine Color Yellow, Urine Appearance Clear, Urine pH 6.0, Ur Specific [place] 1.010, Urine Protein Negative, Urine Glucose (UA) Negative, Urine Ketones Negative, Urine Blood Negative, Urine Nitrate Negative, Urine Bilirubin Negative, Urine Urobilinogen 0.2, Ur Leukocyte Esterase Negative, Urine RBC None, Urine WBC None, Ur Squamous Epith Cells None, Urine Bacteria None 02/12/25 13:21: Troponin I < 0.01, NT-Pro-B Natriuret Pep 1180 H 02/12/25 13:40: VBG pH 7.30 L, VBG pCO2 56.0 H, VBG pO2 30.1, VBG HCO3 27.1, VBG Total CO2 28.8 H, VBG O2 Saturation 51.0, VBG Base Excess 0.7, VBG Lactic Acid 1.0 I & O for Labs for Last 24 Hours: Intake & Output 02/11/25 02/12/25 02/13/25 02/14/25 23:59 23:59 23:59 23:59 Intake Total 210 / 920 1999 / 1999 Output Total 2475 / 2475 1150 / 1150 Balance -2265 / -1555 850 / 850 Weight 116 lb 4 oz 117 lb 4.8 oz 120 lb 1 oz Intake & Output 02/09/25 02/10/25 02/11/25 02/12/25 23:59 23:59 23:59 23:59 Output Total 1400 / 1400 Balance -1400 / -1400 Weight 116 lb 4 oz Microbiology Reports for the Last 24 Hours: Microbiology 02/12/25 13:20 Anus CRE Surveillance Culture - Final Negative 02/12/25 10:50 Blood Blood Culture - Preliminary NO GROWTH AFTER 24 HOURS 02/12/25 10:35 Blood Blood Culture - Preliminary NO GROWTH AFTER 24 HOURS Constitutional: Present moderate distress Head: Present normocephalic and atraumatic ENT: Present normal exam, normal oropharynx and mucous membranes moist Neck: Present normal inspection and full ROM Respiratory: Present prolonged expiratory phase, respiratory distress, diminished air movement and able to speak in complete sentences; Absent rhonchi or wheezes Cardiac: Present S1/S2, Tachycardia and radial pulses present GI: Present soft and distention; Absent tenderness or guarding Rectal (female): Present deferred (female): Present deferred Skin: Present intact; Absent cyanosis or jaundice Neuro: Present alert, awake and oriented x 3 Extremities: Present normal inspection; Absent clubbing or cyanosis Psychiatric: Present normal affect and cooperative Assessment and Plan *Assessment and plan (1) Acute on chronic respiratory failure with hypoxia and hypercapnia: Status: Acute Category: Medical Code(s): J96.21 - Acute and chronic respiratory failure with hypoxia; J96.22 - Acute and chronic respiratory failure with hypercapnia (2) Acute exacerbation of chronic obstructive pulmonary disease: Status: Acute Category: Medical Code(s): J44.1 - Chronic obstructive pulmonary disease with (acute) exacerbation Plan Ms. Santiago is a 74-year-old female with history of COPD, chronic hypoxic respiratory failure on 3 L oxygen supplementation at baseline, preserved EF heart failure, hypertension recently seen in the hospital for COPD exacerbation hypercarbic respiratory failure discharged home on antibiotics and steroids presented to the ER again with worsening respiratory distress hypercarbic respiratory failure needing noninvasive ventilator therapy and pulmonary was called for further evaluation and management. Patient admits compliance with her inhaler therapies and nebulization therapies upon discharge. Afebrile. Hemodynamically stable. Mild neutrophilic predominant leukocytosis. Chest x-ray upon admission no obvious pulmonary parenchymal abnormalities. Hyperinflated lungs noted. Comprehensive respiratory viral PCR panel negative. Blood gas upon admission severe hypercarbic respiratory failure with pH of 7.16 and pCO2 of 60.6, improved to 7.30 and 56.0. Currently receiving ceftriaxone azithromycin along with DuoNebs every 4 hours along with Pulmicort every 12 scheduled. On examination moderate respiratory distress. On 2 L saturating 95%. No significant wheezing noted on auscultation. Interval update: No acute respiratory vents overnight. Stable leukocytosis. Stable oxygen requirements. Improving respiratory distress. Underwent overnight pulse oximetry. Will follow-up with results. ABG from this morning did not show any significant evidence of hypercarbic respiratory failure, pH 7.35 with pCO2 48.5 off BiPAP Plan: Initiate home BiPAP therapy for her recurrent hypercarbic respiratory failure likely from COPD at 22/03. Continue DuoNebs every 4 hours along with Pulmicort twice daily Wean steroids to prednisone 40 mg daily to complete a total of 5-day Continue ceftriaxone azithromycin pending culture results, antibiotics can be weaned to cefdinir to complete a total of 5-day course Continue O2 supplementation to maintain O2 sat goal of 90% and above. Currently on 2l NC # Thank you for involving pulmonary in this patient. Will follow the patient in pulmonary clinic 1 to 2 weeks postdischarge repeat ABG prior to clinic visit.
[2025-02-14] MEDS: AZITHROMYCIN 250MG TABLET 500 MG PO (08:31)
[2025-02-14 08:43] LABS: ABG HCO3 26.1 mmhg (22.0-26.0); ABG PCO2 48.5 mmhg (35.0-45.0); ABG PH 7.35 mmol/L (7.35-7.45); ABG TCO2 27.6 mmhg (23-27)
[2025-02-14 08:46] LABS: ABG PO2 49.8 mmhg (80-100); Source R RADIAL
--- NOTE | 2025-02-14 10:02 | CARE MANAGER ---
Current Medications Acetaminophen (Acetaminophen 325mg Tab) 650 mg PO Q4HP PRN PRN Reason: Fever or Mild Pain (1-3) Stop: 03/14/25 11:56 Last Admin: 02/12/25 17:47 Dose: 650 mg Hydrocodone Bitart/Acetaminophen (Hydrocodone/Apap 5/325 Mg Tablet) 1 tab PO Q6HP PRN PRN Reason: Moderate to Severe Pain (4-10) Stop: 03/14/25 18:36 Last Admin: 02/14/25 08:30 Dose: 1 tab Albuterol/Ipratropium (Ipratropium/Albuterol 3 Ml Neb) 3 ml IH Q4RT GRACIE Stop: 03/14/25 13:59 Last Admin: 02/14/25 09:50 Dose: 3 ml Atorvastatin Calcium (Atorvastatin 40mg Tablet) 40 mg PO HS GRACIE Stop: 03/14/25 20:59 Last Admin: 02/13/25 20:46 Dose: 40 mg Azithromycin (Azithromycin 250mg Tablet) 500 mg PO DAILY GRACIE Stop: 02/17/25 09:01 Last Admin: 02/14/25 08:31 Dose: 500 mg Budesonide (Budesonide 0.5mg/2ml Neb) 0.5 mg IH BIDRT GRACIE Stop: 03/14/25 17:59 Last Admin: 02/14/25 06:08 Dose: 0.5 mg Carvedilol (Carvedilol 25mg Tablet) 25 mg PO BID GRACIE Stop: 03/14/25 20:59 Last Admin: 02/14/25 08:24 Dose: 25 mg Clopidogrel Bisulfate (Clopidogrel 75mg Tab) 75 mg PO DAILY GRACIE Stop: 03/15/25 08:59 Last Admin: 02/14/25 08:24 Dose: 75 mg Empagliflozin (Empagliflozin 10mg Tablet) 10 mg PO DAILY GRACIE Stop: 03/15/25 08:59 Last Admin: 02/14/25 08:24 Dose: 10 mg Enoxaparin Sodium (Enoxaparin 40mg/0.4ml Syringe) 40 mg SUBCUT DAILY GRACIE Stop: 03/15/25 08:59 Last Admin: 02/14/25 08:23 Dose: 40 mg Ferrous Sulfate (Ferrous Sulfate 325mg Tablet) 325 mg PO BID GRACIE Stop: 03/14/25 20:59 Last Admin: 02/14/25 08:24 Dose: 325 mg Furosemide (Furosemide 40 Mg Tablet) 40 mg PO DAILY [facility] Stop: 03/15/25 08:59 Last Admin: 02/14/25 08:24 Dose: 40 mg Ceftriaxone Sodium 1 gm/ (Sodium Chloride) 50 mls @ 100 mls/hr IV Q24H GRACIE Stop: 02/17/25 11:29 Last Admin: 02/13/25 11:50 Dose: 100 mls/hr Irbesartan (Irbesartan 75mg Tablet) 75 mg PO DAILY GRACIE Stop: 03/15/25 08:59 Last Admin: 02/14/25 08:24 Dose: 75 mg Isosorbide Mononitrate (Isosorbide [place] 60mg Tab.Er.24h) 60 mg PO DAILY GRACIE Stop: 03/15/25 08:59 Last Admin: 02/14/25 08:24 Dose: 60 mg Methylprednisolone Sodium Succinate (Methylprednisolone Sod Succ 40mg Vial) 40 mg IV DAILY GRACIE Stop: 02/18/25 08:59 Last Admin: 02/14/25 08:24 Dose: 40 mg Montelukast Sodium (Montelukast Sodium 10mg Tab) 10 mg PO HS [facility] Stop: 03/14/25 20:59 Last Admin: 02/13/25 20:46 Dose: 10 mg Ondansetron HCl (Ondansetron 4mg/2ml Vial) 4 mg IV Q8HP PRN PRN Reason: Nausea Stop: 03/14/25 11:56 Polyethylene Glycol (Polyethylene Glycol 3350 17 Gm Packet) 17 gm PO DAILY GRACIE Stop: 03/15/25 08:59 Last Admin: 02/14/25 08:23 Dose: 17 gm Sertraline HCl (Sertraline 100mg Tablet) 200 mg PO DAILY [facility] Stop: 03/15/25 08:59 Last Admin: 02/14/25 08:24 Dose: 200 mg Sodium Chloride (Sodium Chloride 0.9% 10ml Flush Syringe) 10 ml IV NEEDED PRN PRN Reason: Maintain IV Site Stop: 03/14/25 11:34 Sodium Chloride (Sodium Chloride 3% 15ml Neb) 3 ml IH ONCE PRN PRN Reason: [employer]CE [employer] Stop: 03/15/25 07:54 Last Admin: 02/13/25 14:21 Dose: 3 ml Spironolactone (Spironolactone 25mg Tablet) 25 mg PO DAILY [facility] Stop: 03/15/25 08:59 Last Admin: 02/14/25 08:25 Dose: 25 mg Laboratory Results - last 48 hr 02/12/25 02/12/25 02/12/25 10:31 10:35 11:00 WBC 14.4 H RBC 3.99 L Hgb 9.5 L Hct 32.8 L MCV 82.2 MCH 23.8 L MCHC 29.0 L RDW 21.9 H Plt Count 364 MPV 10.0 Neut % (Auto) 43.9 Lymph % (Auto) 41.6 [place] % (Auto) 8.7 Eos % (Auto) 4.3 Baso % (Auto) 0.5 Neut # (Auto) 6.3 Lymph # (Auto) 6.0 H [place] # (Auto) 1.3 H Eos # (Auto) 0.6 H Baso # (Auto) 0.1 Total Counted 100 Neutrophils % (Manual) 52 Lymphocytes % (Manual) 37 Monocytes % (Manual) 5 Eosinophils % (Manual) 5 H Basophils % (Manual) 1.0 Platelet Estimate Normal Hypochromasia 2+ Tear Drop Cells 1+ Ovalocytes 1+ Aline Cells 1+ Schistocytes 1+ D-Dimer 0.58 H Specimen Source O2 % ABG pH ABG pCO2 ABG pO2 ABG HCO3 ABG Total CO2 ABG O2 Saturation ABG Base Excess Arturo Test VBG pH 7.16 L VBG pCO2 60.6 H VBG pO2 177.0 H VBG HCO3 20.9 L VBG Total CO2 22.8 L VBG O2 Saturation 99.0 H VBG Base Excess -7.8 L VBG Lactic Acid 4.4 H Sodium 140 Potassium 3.5 Chloride 103 Carbon Dioxide 23 Anion Gap 17.5 H BUN 14 Creatinine 1.20 H Estimated Creat Clear Estimated GFR 44 L Est GFR ( Amer) 53 L Glucose 201 H Calcium 7.8 L Magnesium 1.3 L Total Bilirubin 0.3 AST 58 H ALT 28 Alkaline Phosphatase 119 Troponin I < 0.01 NT-Pro-B Natriuret Pep 1130 H Total Protein 6.3 Albumin 3.8 Globulin 2.5 Albumin/Globulin Ratio 1.5 Procalcitonin 0.100 Urine Color Urine Appearance Urine pH Ur Specific [place] Urine Protein Urine Glucose (UA) Urine Ketones Urine Blood Urine Nitrate Urine Bilirubin Urine Urobilinogen Ur Leukocyte Esterase Urine RBC Urine WBC Ur Squamous Epith Cells Urine Bacteria Urine Opiates Screen Urine Methadone Screen Ur Barbituates Screen Ur Phencyclidine Scrn Ur Amphetamines Screen U Benzodiazepines Scrn Urine Cocaine Screen U Marijuana (THC) Screen Chlamy pneumoniae PCR Not detected Adenovirus (PCR) Not detected B. pertussis DNA (PCR) Not detected Coronavirus OC43 (PCR) Not detected Coronavirus HKU1 (PCR) Not detected Coronavirus 229E (PCR) Not detected SARS-CoV-2 (PCR) Not detected Coronavirus NL63 (PCR) Not detected Human Metapneumovir PCR Not detected Influenza A (H1) PCR Not detected Influ A (H1N1/) PCR Not detected Influenza A (H3) PCR Not detected Influenza Type A (PCR) Not detected Influenza Type B (PCR) Not detected M. pneumoniae (PCR) Not detected Parainfluenza 1 (PCR) Not detected Parainfluenza 2 (PCR) Not detected Parainfluenza 3 (PCR) Not detected Parainfluenza 4 (PCR) Not detected RSV (PCR) Not detected Entero/Rhino (PCR) Not detected 02/12/25 02/12/25 02/12/25 11:20 13:21 13:40 WBC RBC Hgb Hct MCV MCH MCHC RDW Plt Count MPV Neut % (Auto) Lymph % (Auto) [place] % (Auto) Eos % (Auto) Baso % (Auto) Neut # (Auto) Lymph # (Auto) [place] # (Auto) Eos # (Auto) Baso # (Auto) Total Counted Neutrophils % (Manual) Lymphocytes % (Manual) Monocytes % (Manual) Eosinophils % (Manual) Basophils % (Manual) Platelet Estimate Hypochromasia Tear Drop Cells Ovalocytes Aline Cells Schistocytes D-Dimer Specimen Source O2 % ABG pH ABG pCO2 ABG pO2 ABG HCO3 ABG Total CO2 ABG O2 Saturation ABG Base Excess Arturo Test VBG pH 7.30 L VBG pCO2 56.0 H VBG pO2 30.1 VBG HCO3 27.1 VBG Total CO2 28.8 H VBG O2 Saturation 51.0 VBG Base Excess 0.7 VBG Lactic Acid 1.0 Sodium Potassium Chloride Carbon Dioxide Anion Gap BUN Creatinine Estimated Creat Clear Estimated GFR Est GFR ( Amer) Glucose Calcium Magnesium Total Bilirubin AST ALT Alkaline Phosphatase Troponin I < 0.01 NT-Pro-B Natriuret Pep 1180 H Total Protein Albumin Globulin Albumin/Globulin Ratio Procalcitonin Urine Color Yellow Urine Appearance Clear Urine pH 6.0 Ur Specific [place] 1.010 Urine Protein Negative Urine Glucose (UA) Negative Urine Ketones Negative Urine Blood Negative Urine Nitrate Negative Urine Bilirubin Negative Urine Urobilinogen 0.2 Ur Leukocyte Esterase Negative Urine RBC None Urine WBC None Ur Squamous Epith Cells None Urine Bacteria None Urine Opiates Screen Urine Methadone Screen Ur Barbituates Screen Ur Phencyclidine Scrn Ur Amphetamines Screen U Benzodiazepines Scrn Urine Cocaine Screen U Marijuana (THC) Screen Chlamy pneumoniae PCR Adenovirus (PCR) B. pertussis DNA (PCR) Coronavirus OC43 (PCR) Coronavirus HKU1 (PCR) Coronavirus 229E (PCR) SARS-CoV-2 (PCR) Coronavirus NL63 (PCR) Human Metapneumovir PCR Influenza A (H1) PCR Influ A (H1N1) PCR Influenza A (H3) PCR Influenza Type A (PCR) Influenza Type B (PCR) M. pneumoniae (PCR) Parainfluenza 1 (PCR) Parainfluenza 2 (PCR) Parainfluenza 3 (PCR) Parainfluenza 4 (PCR) RSV (PCR) Entero/Rhino (PCR) 02/12/25 02/12/25 02/13/25 16:39 18:41 04:50 WBC 13.2 H RBC 3.97 L Hgb 9.1 L Hct 31.2 L MCV 78.6 L MCH 22.9 L MCHC 29.2 L RDW 21.8 H Plt Count 297 MPV 10.3 Neut % (Auto) 79.6 Lymph % (Auto) 10.3 [place] % (Auto) 9.4 H Eos % (Auto) 0.0 L Baso % (Auto) 0.1 Neut # (Auto) 10.5 H Lymph # (Auto) 1.4 [place] # (Auto) 1.3 H Eos # (Auto) 0.0 Baso # (Auto) 0.0 Total Counted Neutrophils % (Manual) Lymphocytes % (Manual) Monocytes % (Manual) Eosinophils % (Manual) Basophils % (Manual) Platelet Estimate Hypochromasia Tear Drop Cells Ovalocytes Alien Cells Schistocytes D-Dimer Specimen Source O2 % ABG pH ABG pCO2 ABG pO2 ABG HCO3 ABG Total CO2 ABG O2 Saturation ABG Base Excess Arturo Test VBG pH VBG pCO2 VBG pO2 VBG HCO3 VBG Total CO2 VBG O2 Saturation VBG Base Excess VBG Lactic Acid Sodium 136 Potassium 3.2 L Chloride 96 L Carbon Dioxide 31 H Anion Gap 12.2 BUN 21 H D Creatinine 1.10 H Estimated Creat Clear 37 Estimated GFR 48 L Est GFR ( Amer) 59 Glucose 123 H D Calcium 8.4 Magnesium 1.5 L D Total Bilirubin 0.3 AST 35 D ALT 24 Alkaline Phosphatase 95 Troponin I 0.01 NT-Pro-B Natriuret Pep Total Protein 6.3 Albumin 3.8 Globulin 2.5 Albumin/Globulin Ratio 1.5 Procalcitonin Urine Color Urine Appearance Urine pH Ur Specific [place] Urine Protein Urine Glucose (UA) Urine Ketones Urine Blood Urine Nitrate Urine Bilirubin Urine Urobilinogen Ur Leukocyte Esterase Urine RBC Urine WBC Ur Squamous Epith Cells Urine Bacteria Urine Opiates Screen Negative Urine Methadone Screen Negative Ur Barbituates Screen Negative Ur Phencyclidine Scrn Negative Ur Amphetamines Screen Negative U Benzodiazepines Scrn Negative Urine Cocaine Screen Negative U Marijuana (THC) Screen Negative Chlamy pneumoniae PCR Adenovirus (PCR) B. pertussis DNA (PCR) Coronavirus OC43 (PCR) Coronavirus HKU1 (PCR) Coronavirus 229E (PCR) SARS-CoV-2 (PCR) Coronavirus NL63 (PCR) Human Metapneumovir PCR Influenza A (H1) PCR Influ A (H1N1/09) PCR Influenza A (H3) PCR Influenza Type A (PCR) Influenza Type B (PCR) M. pneumoniae (PCR) Parainfluenza 1 (PCR) Parainfluenza 2 (PCR) Parainfluenza 3 (PCR) Parainfluenza 4 (PCR) RSV (PCR) Entero/Rhino (PCR) 02/13/25 02/14/25 02/14/25 08:10 06:00 06:33 WBC 14.1 H RBC 3.69 L Hgb 8.9 L Hct 30.0 L MCV 81.3 MCH 24.1 L MCHC 29.7 L RDW 22.5 H Plt Count 302 MPV 10.2 Neut % (Auto) 77.4 Lymph % (Auto) 14.0 [place] % (Auto) 7.8 Eos % (Auto) 0.2 Baso % (Auto) 0.1 Neut # (Auto) 10.9 H Lymph # (Auto) 2.0 [place] # (Auto) 1.1 H Eos # (Auto) 0.0 Baso # (Auto) 0.0 Total Counted Neutrophils % (Manual) Lymphocytes % (Manual) Monocytes % (Manual) Eosinophils % (Manual) Basophils % (Manual) Platelet Estimate Hypochromasia Tear Drop Cells Ovalocytes Aline Cells Schistocytes D-Dimer Specimen Source R radial O2 % 2lpm ABG pH 7.35 ABG pCO2 48.5 H ABG pO2 49.8 L ABG HCO3 26.1 H ABG Total CO2 27.6 H ABG O2 Saturation 87 L* ABG Base Excess 0.5 Arturo Test Acceptable VBG pH 7.40 VBG pCO2 45.0 VBG pO2 50.3 H VBG HCO3 27.2 VBG Total CO2 28.6 H VBG O2 Saturation 85.0 H VBG Base Excess 2.4 H VBG Lactic Acid 1.4 Sodium 136 Potassium 3.9 D Chloride 99 Carbon Dioxide 28 Anion Gap 12.9 BUN 24 H Creatinine 1.20 H Estimated Creat Clear 35 Estimated GFR 44 L Est GFR ( Amer) 53 L Glucose 116 H Calcium 8.2 L Magnesium 2.4 H D Total Bilirubin 0.3 AST 26 D ALT 20 Alkaline Phosphatase 100 Troponin I NT-Pro-B Natriuret Pep Total Protein 6.0 L Albumin 3.6 Globulin 2.4 Albumin/Globulin Ratio 1.5 Procalcitonin Urine Color Urine Appearance Urine pH Ur Specific [place] Urine Protein Urine Glucose (UA) Urine Ketones Urine Blood Urine Nitrate Urine Bilirubin Urine Urobilinogen Ur Leukocyte Esterase Urine RBC Urine WBC Ur Squamous Epith Cells Urine Bacteria Urine Opiates Screen Urine Methadone Screen Ur Barbituates Screen Ur Phencyclidine Scrn Ur Amphetamines Screen U Benzodiazepines Scrn Urine Cocaine Screen U Marijuana (THC) Screen Chlamy pneumoniae PCR Adenovirus (PCR) B. pertussis DNA (PCR) Coronavirus OC43 (PCR) Coronavirus HKU1 (PCR) Coronavirus 229E (PCR) SARS-CoV-2 (PCR) Coronavirus NL63 (PCR) Human Metapneumovir PCR Influenza A (H1) PCR Influ A (H1N1/09) PCR Influenza A (H3) PCR Influenza Type A (PCR) Influenza Type B (PCR) M. pneumoniae (PCR) Parainfluenza 1 (PCR) Parainfluenza 2 (PCR) Parainfluenza 3 (PCR) Parainfluenza 4 (PCR) RSV (PCR) Entero/Rhino (PCR) Vital Signs Fraction of Inspired Oxygen 02/12/25 10:40 Temperature 98 F 02/14/25 08:00 Pulse Rate 75 02/14/25 08:00 Respiratory Rate 18 02/14/25 08:00 Blood Pressure 110/50 L 02/14/25 08:00 02 Sat by Pulse Oximetry 98 02/14/25 08:00 Oxygen Delivery Method Nasal Cannula 02/14/25 08:54 Oxygen Flow Rate (LPM) 2 02/14/25 08:54 Fraction of Inspired Oxygen 02/12/25 20:07
--- NOTE | 2025-02-14 10:08 | SW/DCPLANNER ---
Addendum entered by Sobia Delatorre RN 02/14/25 16:47: Patient is scheduled for outpatient Abg on Monday. If she has a PcO2 >52, we will work with [facility] to obtain Bi-PAP. Original Note: Halie spoke with patient and she has home health with [facility]. I faxed patient's information to [facility] and she could be a resumption of care. Lion Robles
--- NOTE | 2025-02-14 10:45 | HMH.PTEV ---
Physical Therapy Evaluation Rehab PT IP Evaluation Start: 02/14/25 10:20 Freq: ONCE Status: Active Protocol: Document 02/14/25 10:41 LESTER (Rec: 02/14/25 10:45 LESTER [id number]) Subjective/History History History Per H&P: Loreta Waldrop is a 74-year-old female with medical history significant for severe emphysema/COPD on 3 L baseline, HFpEF, hypertension, iron deficiency anemia, mood disorder who presents with 2 to 3-day onset of progressive shortness of breath. Patient was recently discharged from our facility in stable condition 8 days ago and patient states she was doing well for a few days until she started experiencing shortness of breath again. She states she has been taking all her medications, including her breathing treatments, steroids, antibiotics, and her heart medications. Has required 5 L over the last few days. EMS found her to be saturating in the 60s with her home baseline oxygen. Workup in the ED significant for VBG pH 7.16, pCO2 60, negative respiratory panel, unremarkable CXR. She had profound airway constriction and was started on breathing treatments, steroids, and BiPAP. Over time, patient's respiratory status improved but continued to have very constricted airways . Case discussed with ED provider and is to be made to admit patient for acute on chronic hypoxic, hypercapnic respiratory failure from COPD exacerbation. Subjective Subjective PLOF: IND with use of rollator. Doesn't drive. Denies any falls in past 30 days. HOME: Lives with her daughter in a 2-story home (pt stays on ground level). 4 KAIT home. New diagnosis of No cancer in past 12 months? [facility] How much help from another person do you currently need... Turning from your None back to your side while in a flat bed without using bedrails? Moving from lying on None back to sitting on the side of a flat bed without using bedrails? Moving to and from a None bed to a chair ( including a wheelchair)? Standing up from a A little chair using your arms? (e.g., wheelchair, bedside chair) Walking in hospital A little room? Climbing 3-5 steps A little with a railing? Mobility Score 21 Mobility Level [facility] Mobility 6 Walk 10 steps or more Mobility Calculator Rehab PT IP Eval Objective Appearance Patient Behavior Appropriate,Cooperative Patient Orientation Person,Place Difficulty following none instructions Speech Pattern Clear Ambulation Patient Able to Yes Ambulate Ambulation Observation IP General Gait Antalgic Gait Pattern Observation Ambulation Distance 7 (feet) Ambulation Ability Minimal x 1 (25% assist) Balance Ability to Arise Able, uses arms to help Sitting Balance Steady, safe Standing Balance Steady, wide stance Dynamic Sitting Good Balance Ability Dynamic Standing Fair Balance Ability Transfers Bed Transfer Ability Supervision/Stand by Sit to Stand Bed Contact Guard/Hand Hold Transfer Ability Rehab PT IP prob,goals,plan Problems Date of Evaluation: 02/14/25 PT IP Problems Transfers,Gait,Balance,Safety Rehab Potential Rehab Potential Good Plan PT Intervention Plan Transfers,Gait,Balance,Safety,Therapeutic Exercise Other Intervention 1-2 times Plan PT Plan Frequency Daily Duration LOS Discharge Goals Sit to Stand Chair Independent Transfer Ability Ambulation Assistive Rolling Walker Device Ambulation Distance 50 (feet) Discharge Plan PT Discharge Plan Initial physical therapy evaluation performed. Patient presents below baseline at this time in functional mobility, transfers, gait, and strength. Pt would benefit from skilled PT while at [facility] to prevent further functional decline and maximize safety with mobility. Pt most appropriate to d/c home with /7 care when deemed medically necessary d/t current level of mobility, home set-up, and family support. PT recommending home health PT services to address deficits. Eval Complexity Eval Charge Codes 18529 - Moderate Complexity PHYSICIAN CERTIFICATION: I certify the specified therapy services for Loreta Santiago are required, authorized, and reviewed every 30 days.
[2025-02-14 12:00] VITALS: BP 135/67; PULSE 69; RESP 18; TEMP 36.5; O2SAT 93
[2025-02-14] MEDS: CEFTRIAXONE 1 GM 1 GM in 0.9 % SODIUM CHLORIDE 50 ML IV (12:08)
--- NOTE | 2025-02-14 12:09 | EXP.DC.SUM ---
General Admission date:: 02/12/25 HPI HPI HPI: Loreta Waldrop is a 74-year-old female with medical history significant for severe emphysema/COPD on 3 L baseline, HFpEF, hypertension, iron deficiency anemia, mood disorder who presents with 2 to 3-day onset of progressive shortness of breath. Patient was recently discharged from our facility in stable condition 8 days ago and patient states she was doing well for a few days until she started experiencing shortness of breath again. She states she has been taking all her medications, including her breathing treatments, steroids, antibiotics, and her heart medications. Has required 5 L over the last few days. EMS found her to be saturating in the 60s with her home baseline oxygen. Workup in the ED significant for VBG pH 7.16, pCO2 60, negative respiratory panel, unremarkable CXR. She had profound airway constriction and was started on breathing treatments, steroids, and BiPAP. Over time, patient's respiratory status improved but continued to have very constricted airways. Case discussed with ED provider and is to be made to admit patient for acute on chronic hypoxic, hypercapnic respiratory failure from COPD exacerbation. Hospital Course Hospital Course Hospital Course: Loreta Waldrop is a 74-year-old female with medical history significant for severe emphysema/COPD on 3 L baseline, HFpEF, hypertension, iron deficiency anemia, mood disorder who presents with 2 to 3-day onset of progressive shortness of breath. Patient was recently discharged from our facility in stable condition 8 days ago and patient states she was doing well for a few days until she started experiencing shortness of breath again. She states she has been taking all her medications, including her breathing treatments, steroids, antibiotics, and her heart medications. Has required 5 L over the last few days. EMS found her to be saturating in the 60s with her home baseline oxygen. Workup in the ED significant for VBG pH 7.16, pCO2 60, negative respiratory panel, unremarkable CXR. She had profound airway constriction and was started on breathing treatments, steroids, and BiPAP. Over time, patient's respiratory status improved but continued to have very constricted airways. Case discussed with ED provider and is to be made to admit patient for acute on chronic hypoxic, hypercapnic respiratory failure from COPD exacerbation. #Acute on chronic hypoxic, hypercapnic respiratory failure #COPD exacerbation #Severe emphysema ? Progressive shortness of breath over the past 2 to 3 days prior to admission, required 5 L nasal cannula above her baseline of 3 L. ? Initial VBG pH 7.16, PCO2 60. Profound airway constriction, started on BiPAP with improvement in symptoms. Repeat VBG reassuring. ? Normal respiratory panel, unremarkable CXR. Patient has been adherent to her breathing treatments at home. ? Clinically improved with DuoNebs, Pulmicort, Solu-Medrol, ceftriaxone, azithromycin. Pending sputum cultures at this time. ? Pulmonology consulted, recommended Bipap. Inpatient ABG unremarkable, but may not represent impending hypercapnia. Outpatient ABG for Monday, will follow closely with pulmonology within 1 week. However, patient states she cannot tolerate BiPAP for extended periods of time due to claustrophobia. Advised her to try her best. ? Discharged with prednisone, cefdinir for 2 more days. Continue Trelegy 100, montelukast, DuoNebs every 6 hours as needed. #HFpEF ? Currently euvolemic, stable. Continue home Lasix 40 mg, Jardiance 10 mg, spironolactone 25 mg. #Hypertension ? Initially had blood pressures 180s over 90s, Dr. Ratliff recommended night pride drip. Since weaned off. ? Continue home Coreg 25 mg twice daily, spironolactone 25 mg, irbesartan 75 mg. #Iron deficiency anemia ? Started ferrous sulfate 325 mg twice daily, MiraLAX. #Mood disorder ? Continue home sertraline 200 mg. #CAD ? Continue home Plavix, statin. Total time spent on discharge: 32 minutes on chart review, counseling, documentation, and direct care with patient. Exam Data for Last 24 hours Vital signs and Labs for Last 24 Hours: Temp Pulse Resp BP Pulse Ox O2 Del Method O2 Flow Rate 98 F 75 18 110/50 L 98 Nasal Cannula 2 02/14/25 08:00 02/14/25 08:00 02/14/25 08:00 02/14/25 08:00 02/14/25 08:00 02/14/25 08:54 02/14/25 08:54 FiO2 02/12/25 20:07 Laboratory Results - last 24 hr 02/14/25 06:00: Specimen Source R radial, O2 % 2lpm, ABG pH 7.35, ABG pCO2 48.5 H, ABG pO2 49.8 L, ABG HCO3 26.1 H, ABG Total CO2 27.6 H, ABG O2 Saturation 87 L*, ABG Base Excess 0.5, Arturo Test Acceptable 02/14/25 06:33: WBC 14.1 H, RBC 3.69 L, Hgb 8.9 L, Hct 30.0 L, MCV 81.3, MCH 24.1 L, MCHC 29.7 L, RDW 22.5 H, Plt Count 302, MPV 10.2, Neut % (Auto) 77.4, Lymph % (Auto) 14.0, [place] % (Auto) 7.8, Eos % (Auto) 0.2, Baso % (Auto) 0.1, Neut # (Auto) 10.9 H, Lymph # (Auto) 2.0, [place] # (Auto) 1.1 H, Eos # (Auto) 0.0, Baso # (Auto) 0.0, Sodium 136, Potassium 3.9 D, Chloride 99, Carbon Dioxide 28, Anion Gap 12.9, BUN 24 H, Creatinine 1.20 H, Estimated Creat Clear 35, Estimated GFR 44 L, Est GFR ( Amer) 53 L, Glucose 116 H, Calcium 8.2 L, Magnesium 2.4 H D, Total Bilirubin 0.3, AST 26 D, ALT 20, Alkaline Phosphatase 100, Total Protein 6.0 L, Albumin 3.6, Globulin 2.4, Albumin/Globulin Ratio 1.5 I & O for Last 24 hours: Intake & Output 02/11/25 02/12/25 02/13/25 02/14/25 23:59 23:59 23:59 23:59 Intake Total 210 / 920 1999 / 1999 300 / 300 Output Total 2475 / 2475 1150 / 1150 Balance -2265 / -1555 850 / 850 300 / 300 Weight 52.73 kg 53.206 kg 54.459 kg Microbiology Reports for the Last 24 Hours: Microbiology 02/12/25 10:50 Blood Blood Culture - Preliminary NO GROWTH AFTER 48 HOURS 02/12/25 10:35 Blood Blood Culture - Preliminary NO GROWTH AFTER 48 HOURS 02/12/25 13:20 Anus CRE Surveillance Culture - Final Negative Results Data Completed and Pending Labs on day of discharge: Labs from last 24 hours 02/14/25 02/14/25 06:33 06:00 WBC 14.1 H RBC 3.69 L Hgb 8.9 L Hct 30.0 L MCV 81.3 MCH 24.1 L MCHC 29.7 L RDW 22.5 H Plt Count 302 MPV 10.2 Neut % (Auto) 77.4 Lymph % (Auto) 14.0 [place] % (Auto) 7.8 Eos % (Auto) 0.2 Baso % (Auto) 0.1 Neut # (Auto) 10.9 H Lymph # (Auto) 2.0 [place] # (Auto) 1.1 H Eos # (Auto) 0.0 Baso # (Auto) 0.0 Specimen Source R radial O2 % 2lpm ABG pH 7.35 ABG pCO2 48.5 H ABG pO2 49.8 L ABG HCO3 26.1 H ABG Total CO2 27.6 H ABG O2 Saturation 87 L* ABG Base Excess 0.5 Arturo Test Acceptable Sodium 136 Potassium 3.9 D Chloride 99 Carbon Dioxide 28 Anion Gap 12.9 BUN 24 H Creatinine 1.20 H Estimated Creat Clear 35 Estimated GFR 44 L Est GFR ( Amer) 53 L Glucose 116 H Calcium 8.2 L Magnesium 2.4 H D Total Bilirubin 0.3 AST 26 D ALT 20 Alkaline Phosphatase 100 Total Protein 6.0 L Albumin 3.6 Globulin 2.4 Albumin/Globulin Ratio 1.5 Preliminary micro results at discharge 02/12/25 10:50 Blood Culture - Preliminary Blood NO GROWTH AFTER 48 HOURS 02/12/25 10:35 Blood Culture - Preliminary Blood NO GROWTH AFTER 48 HOURS DS: Diagnosis Discharge Diagnosis (1) Acute on chronic respiratory failure with hypoxia and hypercapnia: Status: Acute Code(s): J96.21 - Acute and chronic respiratory failure with hypoxia; J96.22 - Acute and chronic respiratory failure with hypercapnia (2) Acute exacerbation of chronic obstructive pulmonary disease: Status: Acute Code(s): J44.1 - Chronic obstructive pulmonary disease with (acute) exacerbation Meds Home Medications and Allergies Home Medications ?Medication ?Instructions ?Recorded ?Confirmed ?Type atorvastatin 40 mg tablet 40 mg PO HS 12/31/23 02/12/25 History clopidogrel 75 mg tablet 75 mg PO DAILY 12/31/23 02/12/25 History sertraline 100 mg tablet 200 mg PO DAILY 12/31/23 02/12/25 History cyanocobalamin (vitamin B-12) 1,000 mcg PO DAILY 04/02/24 02/12/25 History 1,000 mcg tablet fluticasone fur. 100 mcg-umeclid 1 inh inhalation DAILY 90 days #60 04/02/24 02/12/25 Rx 62.5 mcg-vilant 25 mcg ea inhalat.powder (Trelegy Ellipta) isosorbide mononitrate 60 mg 60 mg PO DAILY #30 tabs 01/07/25 02/12/25 Rx tablet,extended release 24 hr meloxicam 15 mg tablet 15 mg PO DAILY 01/07/25 02/12/25 History montelukast 10 mg tablet 10 mg PO HS 01/07/25 02/12/25 History carvedilol 25 mg tablet 25 mg PO BID 30 days #60 tabs 01/17/25 02/12/25 Rx furosemide 40 mg tablet 40 mg PO DAILY 30 days #30 tabs 01/17/25 02/12/25 Rx empagliflozin 10 mg tablet 10 mg PO DAILY 30 days #30 tabs 02/04/25 02/12/25 Rx (Jardiance) irbesartan 75 mg tablet 75 mg PO DAILY 30 days #30 tabs 02/04/25 02/12/25 Rx spironolactone 25 mg tablet 25 mg PO DAILY 30 days #30 tabs 02/04/25 02/12/25 Rx albuterol sulfate 90 mcg/actuation 2 inh inhalation QIDP PRN 02/12/25 02/12/25 History aerosol inhaler shortness of breath or wheezing cefdinir 300 mg capsule 300 mg PO BID 2 days #4 caps 02/14/25 Rx ferrous sulfate 325 mg (65 mg 325 mg PO BID 30 days #60 tabs 02/14/25 Rx iron) tablet hydrocodone 7.5 mg-acetaminophen 1 tab PO Q6H PRN pain 3 days #12 02/14/25 Rx 325 mg tablet tabs ipratropium 0.5 mg-albuterol 3 mg 3 ml inhalation Q6HP PRN shortness 02/14/25 Rx (2.5 mg base)/3 mL nebulization of breath or wheezing 30 days #180 soln mL polyethylene glycol 3350 17 gram 17 g PO DAILY 30 days #30 ea 02/14/25 Rx oral powder packet (HealthyLax) prednisone 20 mg tablet 40 mg (2 x 20 mg) PO DAILY 2 days 02/14/25 Rx #4 tabs rivastigmine 4.6 mg/24 hour 4.6 mg topical DAILY 02/14/25 02/14/25 History transdermal patch New Prescriptions to Start Prescriptions: cefdinir Huy,Mihai ferrous sulfate Mihai Son hydrocodone-acetaminophen Mihai Son ipratropium-albuterol Mihai Son polyethylene glycol 3350 [HealthyLax] Mihai Son prednisone Mihai Son Allergies Allergy/AdvReac Type Severity Reaction Status Date / Time No Known Allergies Allergy Verified 02/02/25 14:30 Discharge Plan Disposition Patient Disposition: Home Health Service Condition: Fair Discharge Order Discharge Orders: Discharge Order (Routine); Ordered 02/14/25 Ordered By: Mihai Son Follow up Plan Follow up with: Nora Vega MD [Physician, Pulmonology] - 02/20/25 1:00 pm Prescriptions/Medication Reconciliation: New ipratropium-albuterol 0.5 mg-3 mg(2.5 mg base)/3 mL Solution For Nebulization 3 ml inhalation Q6HP PRN (Reason: shortness of breath or wheezing) 30 Days Qty: 180 0RF prednisone 20 mg tablet 40 mg PO DAILY 2 Days Qty: 4 0RF hydrocodone-acetaminophen 7.5-325 mg tablet 1 tab PO Q6H PRN (Reason: pain) 3 Days Qty: 12 0RF cefdinir 300 mg capsule 300 mg PO BID 2 Days Qty: 4 0RF polyethylene glycol 3350 [HealthyLax] 17 gram Powder In Packet 17 g PO DAILY 30 Days Qty: 30 0RF ferrous sulfate 325 mg (65 mg iron) Tablet 325 mg PO BID 30 Days Qty: 60 0RF Continued Trelegy Ellipta 100-62.5-25 mcg blister with device 1 inh inhalation DAILY 90 Days Qty: 60 3RF cyanocobalamin (vitamin B-12) 1,000 mcg tablet 1,000 mcg PO DAILY Patient Comments: TAKE ONE (1) TABLET EVERY DAY BY ORAL ROUTE DIRECTED FOR 30 DAYS. meloxicam 15 mg tablet 15 mg PO DAILY Patient Comments: TAKE 1 TABLET BY MOUTH ONCE DAILY FOR 90 DAYS montelukast 10 mg tablet 10 mg PO HS Patient Comments: TAKE 1 TABLET BY MOUTH ONCE DAILY FOR 90 DAYS isosorbide mononitrate 60 mg tablet extended release 24 hr 60 mg PO DAILY Qty: 30 3RF carvedilol 25 mg Tablet 25 mg PO BID 30 Days Qty: 60 3RF Rx Instructions: must administer with a meal/food furosemide 40 mg Tablet 40 mg PO DAILY 30 Days Qty: 30 3RF spironolactone 25 mg Tablet 25 mg PO DAILY 30 Days Qty: 30 0RF irbesartan 75 mg Tablet 75 mg PO DAILY 30 Days Qty: 30 0RF Jardiance 10 mg Tablet 10 mg PO DAILY 30 Days Qty: 30 0RF atorvastatin 40 mg tablet 40 mg PO HS sertraline 100 mg tablet 200 mg PO DAILY clopidogrel 75 mg tablet 75 mg PO DAILY albuterol sulfate 90 mcg/actuation HFA aerosol inhaler 2 inh inhalation QIDP PRN (Reason: shortness of breath or wheezing) rivastigmine 4.6 mg/24 hour Patch 24 Hour 4.6 mg topical DAILY Rx Instructions: changes every other day due to nausea Other Ambulatory Orders: Arterial Blood Gas (Routine) Timeframe: [id number] Facility: [facility] - Location: Laboratory Ordered By: Mihai Son Problem Reconciliation Problems Reviewed?: Yes Patient Discharge Instructions Patient Instructions: DI for Respiratory Failure, DI for Hypomagnesemia, Catheter-Associated Urinary Tract Infection, Stop Light COPD, Stop Light Heart Failure Print Language: Pakistani Providers Primary Care Provider: Provider,Referral Admit Provider: Mihai Son Attending Provider: Mihai Son
--- NOTE | 2025-02-17 12:33 | SW/DCPLANNER ---
Spoke with patient's daughter on the phone. Patient's daughter stated that she was with her mom at their follow up appointment. Patient's daughter stated that they are aware of their follow up appointment. Patient's daughter stated that they were able to get patient's medicine picked up. Patient's daughter stated that they have no concerns or questions at this time. Lion Robles
== END 2025-02-14 14:54 | disposition home health service (06) | DRG 189 ==
LOC: ER 12:05 → ICU 12:17 → 2ND 02-13 18:06
PROVIDERS: Internal Medicine Pulmonary Disease; Physician Assistant; Admitting Provider Student in an Organized Health Care Education/Training Program; Emergency Provider Emergency Medicine; Visit Provider Student in an Organized Health Care Education/Training Program
DX: J96.21 Acute and chronic respiratory failure with hypoxia (principal); J44.1 Chronic obstructive pulmonary disease with (acute) exacerbation; I50.32 Chronic diastolic (congestive) heart failure; J96.22 Acute and chronic respiratory failure with hypercapnia; I11.0 Hypertensive heart disease with heart failure; I25.10 Atherosclerotic heart disease of native coronary artery without angina pectoris; J43.9 Emphysema, unspecified; E83.42 Hypomagnesemia; E83.51 Hypocalcemia; E78.5 Hyperlipidemia, unspecified; F39 Unspecified mood [affective] disorder; Z79.899 Other long term (current) drug therapy; Z87.891 Personal history of nicotine dependence
CPT/HCPCS: 36415; 51702; 71045; 80053; 80307; 81001; 82803; 83735; 83880; 84145; 84484; 85007; 85025; 85378; 87040; 87081; 87633; 93005; 93306; 94640; 94660; 94761; 94762; 97162; J0456; J0612; J0696; J1650; J1938; J2919; J3475; J7050

== ENCOUNTER 2025-02-17 11:23 | Outpatient (CLI) | payer MEDICARE, SELFPAY | END 2025-02-17 23:59 | disposition home or self-care (01) | LOC: LAB 11:25 | PROVIDERS: PCP Nurse Practitioner; Visit Provider Student in an Organized Health Care Education/Training Program | DX: J44.1 Chronic obstructive pulmonary disease with (acute) exacerbation (principal) ==

== ENCOUNTER 2025-02-23 06:48 | Emergency (ER) | payer MEDICARE, SELFPAY ==
[2025-02-23 06:45] VITALS: PULSE 96; PULSE 98
[2025-02-23] MEDS: IPRATROPIUM/ALBUTEROL 3 ML NEB 6 ML IH (06:45)
--- NOTE | 2025-02-23 06:46 | ECG_ITS ---
APPROVED REPORT Exam: Resting ECG HR:93 bpm ECG Measurements Heart Rate 93 AXES MA 121 P 86 QRSd 86 QRS 68 QT 346 T 71 QTc 396 Conclusion SINUS RHYTHM MINIMAL ST DEPRESSION [0.025+ mV ST DEPRESSION] BORDERLINE ECG Electronically signed by : JEFFREY GONSALEZ, 02/23/2025 15:52:26
--- NOTE | 2025-02-23 06:49 | XR_ITS ---
PROCEDURE INFORMATION: Exam: XR Chest Exam date and time: 02/23/2025 7:03 AM Age: 74 years old Clinical indication: Shortness of breath; Additional info: Copd, SOA TECHNIQUE: Imaging protocol: Radiologic exam of the chest. Views: 1 view. COMPARISON: CR XR CHEST PORTABLE 02/12/2025 10:38 AM FINDINGS: Lungs: The lungs are hyperinflated with COPD changes. There are prominent peripheral interstitial markings at the lung bases which likely represents mild interstitial edema. No areas of lung consolidation. Pleural spaces: Unremarkable. No pleural effusion. No pneumothorax. Heart/Mediastinum: Unremarkable. No cardiomegaly. Bones/joints: Unremarkable. IMPRESSION: COPD and suspected mild interstitial edema at the bases.
--- NOTE | 2025-02-23 06:49 | ED_ITS ---
Discharge Plan Disposition Patient Disposition: Home, Self-Care Prescriptions Prescriptions: New prednisone 20 mg tablet 20 mg PO DAILY 4 Days Qty: 4 0RF No Action cyanocobalamin (vitamin B-12) 1,000 mcg tablet 1,000 mcg PO DAILY Patient Comments: TAKE ONE (1) TABLET EVERY DAY BY ORAL ROUTE DIRECTED FOR 30 DAYS. meloxicam 15 mg tablet 15 mg PO DAILY Patient Comments: TAKE 1 TABLET BY MOUTH ONCE DAILY FOR 90 DAYS montelukast 10 mg tablet 10 mg PO HS Patient Comments: TAKE 1 TABLET BY MOUTH ONCE DAILY FOR 90 DAYS isosorbide mononitrate 60 mg tablet extended release 24 hr 60 mg PO DAILY Qty: 30 3RF Trelegy Ellipta 100-62.5-25 mcg blister with device 1 inh inhalation DAILY 90 Days Qty: 60 3RF ipratropium-albuterol 0.5 mg-3 mg(2.5 mg base)/3 mL solution for nebulization 3 ml inhalation Q6HP PRN (Reason: shortness of breath or wheezing) 30 Days Qty: 180 0RF albuterol sulfate [Ventolin HFA] 90 mcg/actuation HFA aerosol inhaler 2 inh inhalation QID PRN (Reason: shortness of breath or wheezing) 90 Days Qty: 8.5 3RF carvedilol 25 mg Tablet 25 mg PO BID 30 Days Qty: 60 3RF Rx Instructions: must administer with a meal/food furosemide 40 mg Tablet 40 mg PO DAILY 30 Days Qty: 30 3RF spironolactone 25 mg Tablet 25 mg PO DAILY 30 Days Qty: 30 0RF irbesartan 75 mg Tablet 75 mg PO DAILY 30 Days Qty: 30 0RF Jardiance 10 mg Tablet 10 mg PO DAILY 30 Days Qty: 30 0RF atorvastatin 40 mg tablet 40 mg PO HS sertraline 100 mg tablet 200 mg PO DAILY clopidogrel 75 mg tablet 75 mg PO DAILY albuterol sulfate 90 mcg/actuation HFA aerosol inhaler 2 inh inhalation QIDP PRN (Reason: shortness of breath or wheezing) rivastigmine 4.6 mg/24 hour Patch 24 Hour 4.6 mg topical DAILY Rx Instructions: changes every other day due to nausea prednisone 20 mg tablet 40 mg PO DAILY 2 Days Qty: 4 0RF hydrocodone-acetaminophen 7.5-325 mg tablet 1 tab PO Q6H PRN (Reason: pain) 3 Days Qty: 12 0RF cefdinir 300 mg capsule 300 mg PO BID 2 Days Qty: 4 0RF polyethylene glycol 3350 [HealthyLax] 17 gram Powder In Packet 17 g PO DAILY 30 Days Qty: 30 0RF Activity Restrictions/Add. Instructions Additional Instructions/Restrictions: You are being prescribed a 4-day course of steroids for your COPD exacerbation. Take this as prescribed. 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 If you develop any new or worsening symptoms, or if you become concerned for your health for any reason, return to the emergency department for evaluation Clinical Impressions Clinical Impression: COPD exacerbation Print Language Print Language: Slovak Discharge ED Provider: Sterling Sim General Adult HPI <Ernesto Lockwood MD - Last Filed: 02/23/25 06:59> General Chief complaint: Shortness of Breath/Dyspnea Stated complaint: SOA Time Seen by Provider: 02/23/25 06:49 History of Present Illness HPI narrative: 74-year-old female with history of COPD, heart failure, chronic anemia presents for shortness of breath. She is on 3 to 4 L nasal cannula at baseline. She reports that about an hour prior to arrival she started getting short of breath and it has been continuing to worsen. She was given a DuoNeb en route with EMS with some improvement. Was satting okay but was very tachypneic and labored. Related Data Home Medications ?Medication ?Instructions ?Recorded ?Confirmed atorvastatin 40 mg tablet 40 mg PO HS 12/31/23 5 clopidogrel 75 mg tablet 75 mg PO DAILY 12/31/2302/04 sertraline 100 mg tablet 200 mg PO DAILY 12/31/23 cyanocobalamin (vitamin B-12) 1,000 mcg PO DAILY 04/0202/20/25 1,000 mcg tablet meloxicam 15 mg tablet 15 mg PO DAILY 01/07/2502/04 montelukast 10 mg tablet 10 mg PO HS 01/07/25 5 albuterol sulfate 90 mcg/actuation 2 inh inhalation QI DP PRN 02/12/25 02/20/25 aerosol inhaler shortness of breath or wheez ing rivastigmine 4.6 mg/24 hour 4.6 mg topical DAILY 02/1402/20/25 transdermal patch Previous Rx's ?Medication ?Instructions ?Recorded isosorbide mononitrate 60 mg 60 mg PO DAILY #30 tabs 0 01/07/25 tablet,extended release 24 hr carvedilol 25 mg tablet 25 mg PO BID 30 days #60 tab s 01/17/25 furosemide 40 mg tablet 40 mg PO DAILY 30 days #30 t abs 01/17/25 empagliflozin 10 mg tablet 10 mg PO DAILY 30 days #30 tabs 02/04/25 (Jardiance) irbesartan 75 mg tablet 75 mg PO DAILY 30 days #30 t abs 02/04/25 spironolactone 25 mg tablet 25 mg PO DAILY 30 days #30 tabs 02/04/25 cefdinir 300 mg capsule 300 mg PO BID 2 days #4 caps 02/14/25 hydrocodone 7.5 mg-acetaminophen 1 tab PO Q6H PRN pain 3 days #12 02/14/25 325 mg tablet tabs polyethylene glycol 3350 17 gram 17 g PO DAILY 30 days #30 ea 02/14/25 oral powder packet (HealthyLax) prednisone 20 mg tablet 40 mg (2 x 20 mg) PO DAILY 2 days 02/14/25 #4 tabs fluticasone fur. 100 mcg-umeclid 1 inh inhalation LINDSAY Y 90 days #60 02/20/25 62.5 mcg-vilant 25 mcg ea inhalat.powder (Trelegy Ellipta) albuterol sulfate 90 mcg/actuation 2 inh inhalation QI D PRN shortness 02/21/25 aerosol inhaler (Ventolin HFA) of breath or wheezing 9 0 days #8.5 grams ipratropium 0.5 mg-albuterol 3 mg 3 ml inhalation Q6HP PRN shortness 02/21/25 (2.5 mg base)/3 mL nebulization of breath or wheezing 30 days #180 soln mL prednisone 20 mg tablet 20 mg PO DAILY 4 days #4 tab s 02/23/25 Allergies Allergy/AdvReac Type Severity Reaction Status Date / Time No Known Allergies Allergy Verified 02/20/25 13:44 [facility] <Ernesto Lockwood MD - Last Filed: 02/23/25 06:59> [facility] Disclaimer: The information contained in this section may have been updated after the patient was seen, as this information can be updated by other users. Medical History (Updated 02/23/25 @ 06:59 by Ernesto Lockwood MD) COPD mixed type CAP (community acquired pneumonia) Other forms of dyspnea Pulmonary hypertension Hyperlipidemia Hypertension Dyspnea Atypical angina Chronic respiratory failure with hypoxia Encounter for screening for malignant neoplasm of lung Smoking greater than 30 pack years Pulmonary emphysema COPD exacerbation BMI less than 19,adult (HFpEF) heart failure with preserved ejection fraction Tobacco dependence Dependence on supplemental oxygen Coronary artery disease Iron deficiency anemia COPD (chronic obstructive pulmonary disease) Surgical History Hx of esophagogastroduodenoscopy History of colonoscopy History of hysterectomy History of heart artery stent S/P cardiac catheterization Family History Father Alzheimer disease Mother Stroke Social History (Updated 02/20/25 @ 13:48 by EVELYN Paiz) Smoking Status: Never smoker years smoked: 50 smoking status stop date: 3 years ago alcohol intake: former substance use type: denies use current occupational status: other Travel in the last 8 weeks?: None Have you lived/traveled outside [place] in past 30 days?: No Contact w/someone who lives/traveled outside [place] past 30 days?: No Exposure to someone with infectious disease in past 14 days?: No Do you have a fever (greater than 100.4 F or 38 C)?: No Have you tested positive for COVID-19?: No Exposed to someone with COVID-19 in past 14 days?: No Do you have a sore throat?: No Do you have a cough?: No Do you have any weakness?: No Do you have any diarrhea?: No Are you experiencing any unusual bleeding?: No Do you have any muscle aches/pain?: No Do you have any abdominal pain?: No Are you experiencing loss of taste or smell?: No Other Medical History Have you received the Flu Vaccine for this season: No Have you received the Pneumonia Vaccine: Yes <Ernesto Lockwood MD - Last Filed: 02/23/25 06:59> ROS Obtained: Yes All systems reviewed & no additional complaints except as documented Physical Exam <Ernesto Lockwood MD - Last Filed: 02/23/25 06:59> General General appearance: alert and in distress Head Head exam: atraumatic and normocephalic Eye Eye exam: Present normal appearance, PERRL and EOMI ENT ENT exam: Present normal oropharynx and normal external ear exam Neck Neck exam: Present normal inspection and full ROM Chest Chest inspection: Present normal inspection and symmetric chest wall rise; Absent tenderness Respiratory Respiratory exam: Present respiratory distress, wheezes, accessory muscle use and prolonged expiratory phase Cardiovascular Cardiovascular exam: Present regular rate and normal rhythm Abdominal Exam Abdominal exam: Present soft; Absent distention, tenderness or guarding Extremities Exam Extremities exam: Present normal inspection; Absent edema or joint swelling Back Exam Back exam: Present normal inspection; Absent tenderness Neurological Exam Neurological exam: Present alert and oriented X3; Absent motor sensory deficit Psychiatric Psychiatric exam: Present normal affect and normal mood Skin Skin exam: Present warm, dry and normal color Lymphatic Lymphatic Findings: no adenopathy Medical Decision Making <Ernesto Lockwood MD - Last Filed: 02/23/25 06:59> Medical Records Medical records reviewed: Yes I reviewed the patient's medical records. Screening: Per USPSTF and CDC recommendations, given the prevalence of disease in our region, it is our hospital?s policy to screen for HIV and viral Hepatitis for all patients aged 18 and over and those with ongoing risk factors. Vasquez Inquiry Pt receiving controlled substance: No Vasquez was queried for this patient: No Vital Signs: 02/23/25 06:45 02/23/25 06:45 02/23/25 06:53 Temperature 98.1 F Temperature Source Oral Pulse Rate 96 H 98 H Pulse Rate [Left] 102 H Respiratory Rate 21 Blood Pressure Blood Pressure [Right Arm] 139/69 Blood Pressure Mean [Right Arm] 92 Blood Pressure Source [Right Arm] Automatic Cuff Blood Pressure Position [Right Arm] Sitting 02 Sat by Pulse Oximetry 97 Oxygen Delivery Method Non-Rebreather Oxygen Flow Rate (LPM) 02/23/25 07:00 02/23/25 07:10 Temperature Temperature Source Pulse Rate 86 Pulse Rate [Left] Respiratory Rate 24 Blood Pressure 136/79 Blood Pressure [Right Arm] Blood Pressure Mean [Right Arm] Blood Pressure Source [Right Arm] Blood Pressure Position [Right Arm] 02 Sat by Pulse Oximetry 99 98 Oxygen Delivery Method Nasal Cannula Oxygen Flow Rate (LPM) 2 Lab Data Lab results reviewed: Yes I reviewed the patient's lab results. Lab Results 02/23/25 06:40: WBC 13.7 H, RBC 3.87 L, Hgb 9.5 L, Hct 32.7 L, MCV 84.5, MCH 24.5 L, MCHC 29.1 L, RDW 22.6 H, Plt Count 300, MPV 10.1, Neut % (Auto) 55.0, Lymph % (Auto) 31.9, Milam % (Auto) 6.8, Eos % (Auto) 5.3, Baso % (Auto) 0.3, Neut # (Auto) 7.5, Lymph # (Auto) 4.4, Milam # (Auto) 0.9, Eos # (Auto) 0.7 H, Baso # (Auto) 0.0, VBG pH 7.18 L, VBG pCO2 49.3, VBG pO2 54.6 H, VBG HCO3 17.8 L , VBG Total CO2 19.3 L, VBG O2 Saturation 82.3 H, VBG Base Excess -10.6 L, VBG Lactic Acid 3.1 H, Sodium 139, Potassium 4.1, Chloride 110 H, Carbon Dioxide 21 L, Anion Gap 12.1, BUN 15, Creatinine 1.20 H, Estimated Creat Clear 34, E stimated GFR 44 L, Est GFR ( Amer) 53 L, Glucose 135 H, Calcium 8.4, Total Bilirubin 0.4, AST 69 H, ALT 33, Alkaline Phosphatase 119, Troponin I < 0.01, Total Protein 6.0 L, Albumin 3.8, Globulin 2.2, Albumin/Globulin Ratio 1.7 02/23/25 06:40 02/23/25 06:40 Orders (Tests/Meds): ED MEDICATIONS Discontinued Medications Generic Name Dose Route Start Last Admin Trade Name Freq PRN Reason Stop Dose Admin Albuterol/Ipratropium 6 ml 02/23/25 06:49 02/23/25 06:45 Ipratropium/Albuterol 3 Ml Neb IH 02/23/25 06:50 6 ml ONCE ONE Administration Magnesium Sulfate 2 gm in 50 mls @ 150 mls/hr 02/23/25 06:49 02/23/25 06:54 Magnesium Sulfate 2gm/50ml Premix IV 02/23/25 07:08 150 mls/hr ONCE ONE Administration Methylprednisolone Sodium Succinate 80 mg 02/23/25 06:49 02/23/25 06:53 Methylprednisolone Sod Succ 125mg Vial IV 02/23/25 06:50 80 mg ONCE ONE Administration ORDERS Category Date Time Status CXR --portable [XR chest portable] Stat Exams 02/23/25 06:49 Taken CBC w/Auto Diff [Complete Blood Count Auto Diff] Stat Lab 02/23/25 06:40 Completed CMP [Comprehensive Metabolic Panel] Stat Lab 02/23/25 06:40 Completed Lactate Venous Stat Lab 02/23/25 06:49 Ordered Troponin I Q3H Lab 02/23/25 06:40 Completed Troponin I Q3H Lab 02/23/25 10:00 Ordered VBG [Venous Blood Gas] Stat RT 02/23/25 06:40 Completed ECG Data Tracing #1: I reviewed this ECG and interpreted as documented below: Sinus rhythm, rate of 93, no significant ST elevations, no arrhythmia ECG initial impression date: 02/23/25 ECG initial impression time: 06:46 Medical Decision Narrative: 74-year-old female with history of COPD on 3 to 4 L nasal cannula, heart failure, presents for worsening shortness of breath for the last hour. History was obtained via interactive discussion with patient, EMS, chart review. On arrival, patient is [afebrile, hemodynamically stable, satting appropriately, alert, oriented x4, GCS 15], moving all extremities spontaneously. Full physical exam performed and significant for significant respiratory distress with prolonged expiratory phase, wheezing, accessory muscle use Differential includes but is not limited to COPD exacerbation, pneumonia, pneumothorax. Patient was given 3 DuoNebs, 125 Solu-Medrol, 2 g IV magnesium for symptomatic management and correction of underlying abnormalities. Workup initiated including CBC CMP chest x-ray EKG troponin. At this time care handed off to oncoming physician. <Sterling Sim MD - Last Filed: 02/23/25 07:53> Vital Signs: 02/23/25 06:45 02/23/25 06:45 02/23/25 06:53 Temperature 98.1 F Temperature Source Oral Pulse Rate 96 H 98 H Pulse Rate [Left] 102 H Respiratory Rate 21 Blood Pressure Blood Pressure [Right Arm] 139/69 Blood Pressure Mean [Right Arm] 92 Blood Pressure Source [Right Arm] Automatic Cuff Blood Pressure Position [Right Arm] Sitting 02 Sat by Pulse Oximetry 97 Oxygen Delivery Method Non-Rebreather Oxygen Flow Rate (LPM) 02/23/25 07:00 02/23/25 07:10 Temperature Temperature Source Pulse Rate 86 Pulse Rate [Left] Respiratory Rate 24 Blood Pressure 136/79 Blood Pressure [Right Arm] Blood Pressure Mean [Right Arm] Blood Pressure Source [Right Arm] Blood Pressure Position [Right Arm] 02 Sat by Pulse Oximetry 99 98 Oxygen Delivery Method Nasal Cannula Oxygen Flow Rate (LPM) 2 Lab Data Lab Results 02/23/25 06:40: WBC 13.7 H, RBC 3.87 L, Hgb 9.5 L, Hct 32.7 L, MCV 84.5, MCH 24.5 L, MCHC 29.1 L, RDW 22.6 H, Plt Count 300, MPV 10.1, Neut % (Auto) 55.0, Lymph % (Auto) 31.9, Milam % (Auto) 6.8, Eos % (Auto) 5.3, Baso % (Auto) 0.3, Neut # (Auto) 7.5, Lymph # (Auto) 4.4, Milam # (Auto) 0.9, Eos # (Auto) 0.7 H, Baso # (Auto) 0.0, VBG pH 7.18 L, VBG pCO2 49.3, VBG pO2 54.6 H, VBG HCO3 17.8 L , VBG Total CO2 19.3 L, VBG O2 Saturation 82.3 H, VBG Base Excess -10.6 L, VBG Lactic Acid 3.1 H, Sodium 139, Potassium 4.1, Chloride 110 H, Carbon Dioxide 21 L, Anion Gap 12.1, BUN 15, Creatinine 1.20 H, Estimated Creat Clear 34, E stimated GFR 44 L, Est GFR ( Amer) 53 L, Glucose 135 H, Calcium 8.4, Total Bilirubin 0.4, AST 69 H, ALT 33, Alkaline Phosphatase 119, Troponin I < 0.01, Total Protein 6.0 L, Albumin 3.8, Globulin 2.2, Albumin/Globulin Ratio 1.7 Orders (Tests/Meds): ED MEDICATIONS Discontinued Medications Generic Name Dose Route Start Last Admin Trade Name Freq PRN Reason Stop Dose Admin Albuterol/Ipratropium 6 ml 02/23/25 06:49 02/23/25 06:45 Ipratropium/Albuterol 3 Ml Neb IH 02/23/25 06:50 6 ml ONCE ONE Administration Magnesium Sulfate 2 gm in 50 mls @ 150 mls/hr 02/23/25 06:49 02/23/25 06:54 Magnesium Sulfate 2gm/50ml Premix IV 02/23/25 07:08 150 mls/hr ONCE ONE Administration Methylprednisolone Sodium Succinate 80 mg 02/23/25 06:49 02/23/25 06:53 Methylprednisolone Sod Succ 125mg Vial IV 02/23/25 06:50 80 mg ONCE ONE Administration ORDERS Category Date Time Status CXR --portable [XR chest portable] Stat Exams 02/23/25 06:49 Taken CBC w/Auto Diff [Complete Blood Count Auto Diff] Stat Lab 02/23/25 06:40 Completed CMP [Comprehensive Metabolic Panel] Stat Lab 02/23/25 06:40 Completed Lactate Venous Stat Lab 02/23/25 06:49 Ordered Troponin I Q3H Lab 02/23/25 06:40 Completed Troponin I Q3H Lab 02/23/25 10:00 Ordered VBG [Venous Blood Gas] Stat RT 02/23/25 06:40 Completed Medical Decision Narrative: 74-year-old female with history of COPD on 3 to 4 L nasal cannula, heart failure, presents for worsening shortness of breath for the last hour. History was obtained via interactive discussion with patient, EMS, chart review. On arrival, patient is [afebrile, hemodynamically stable, satting appropriately, alert, oriented x4, GCS 15], moving all extremities spontaneously. Full physical exam performed and significant for significant respiratory distress with prolonged expiratory phase, wheezing, accessory muscle use Differential includes but is not limited to COPD exacerbation, pneumonia, pneumothorax. Patient was given 3 DuoNebs, 125 Solu-Medrol, 2 g IV magnesium for symptomatic management and correction of underlying abnormalities. Workup initiated including CBC CMP chest x-ray EKG troponin. At this time care handed off to oncoming physician. Sterling Sim MD At the time my evaluation, patient's laboratory studies and chest x-ray were pending. Patient mildly tachycardic on arrival. VBG showed pH low at 7.18, pCO2 mildly elevated above baseline at 49.3, bicarb low at 17.8 and lactate elevated at 3.1. Patient with improving leukocytosis of 13.7 (was 14.1 on 02/14) when she was discharged most recently. Electrolytes unremarkable nonactionable. Creatinine elevated at baseline at 1.2, glucose normal at 135. Mildly elevated AST of 69 but liver enzymes otherwise unremarkable nonactionable. And troponin less than 0.01. Chest x-ray interpreted by me personally. Chronically hyperexpanded lungs but no focal consolidation, pneumothorax or widening of the mediastinum. Grossly unchanged from previous x-ray. On reassessment, patient is on 2 L nasal cannula at 98% SpO2. She states that she feels significantly better and wants to go home at this time. She reports that she has not had a productive cough with this. It is felt that her symptomatology is best explained by COPD exacerbation and would benefit from another course of steroids. She was on a 4-day course on her discharge on 02/14, which would have finished on 02/18. Will prescribe prednisone at this time. Strict return precautions were given. All questions were answered. She and family at bedside demonstrated understanding and were in agreement with this plan. She was then discharged from the emergency department in stable condition. Procedures <Ernesto Lockwood MD - Last Filed: 02/23/25 06:59> Risk/Benefits of Procedure(s) Were Explained: Yes Critical Care <Ernesto Lockwood MD - Last Filed: 02/23/25 06:59> Critical Care Time Critical Care Time: Yes Attestation: On 02/23/25, the high probability of a clinically significant, sudden or life threatening deterioration of the following system(s) required my full and direct attention, intervention and personal management. The time I documented below is in addition to time spent performing reported procedures but includes the following listed in this critical care notation. Total Time Total Critical Care Time: 35
[2025-02-23 06:53] VITALS: BP 139/69; PULSE 102; RESP 21; TEMP 36.7; O2SAT 97; BMI 21.9
[2025-02-23] MEDS: METHYLPREDNISOLONE SOD SUCC 125MG VIAL 80 MG IV (06:53)
[2025-02-23] MEDS: MAGNESIUM SULFATE IN WATER 2 GM/50 ML PIGGYBACK IV (06:54)
[2025-02-23 06:59] LABS: VBG HCO3 17.8 mmol/L (23-30); VBG PCO2 49.3 mmol/L (35-51); VBG PO2 54.6 mmol/L (28-40)
[2025-02-23 07:00] VITALS: BP 136/79; PULSE 86; RESP 24; O2SAT 99
[2025-02-23 07:01] LABS: Lactate Venous 3.1 mmol/L (0.4-2.0); VBG PH 7.18 mmol/L (7.31-7.41)
--- NOTE | 2025-02-23 07:01 | PC.NURSE ---
Received call from Respiratory of VBG results. aware.
[2025-02-23 07:10] VITALS: O2SAT 98
--- NOTE | 2025-02-23 07:12 | PC.NURSE ---
rounded on pt, updated on poc. no needs at this time. call light within reach. family at bedside
[2025-02-23 07:22] LABS: Hematocrit 32.7 % (37.0-47.0); Hemoglobin 9.5 g/dL (12.2-16.2); Immature Granulocytes % 0.7 %; Mean Corpuscular HGB Conc 29.1 g/dL (31.8-35.4); Mean Corpuscular Hemoglobin 24.5 pg (27.0-31.2); Mean Corpuscular Volume 84.5 fl (81-99); Nucleated Red Blood Cells % 0 %; Platelet Count 300 K/mm3 (142-424); Red Blood Count 3.87 M/mm3 (4.20-5.40); Red Cell Distribution Width-SD 70.5 fL; White Blood Count 13.7 K/mm3 (4.8-10.8)
[2025-02-23 07:29] LABS: Alanine Aminotransferase 33 U/L (12-78); Albumin Level 3.8 g/dl (3.5-5.0); Albumin/Globulin Ratio 1.7 (1.1-1.8); Alkaline Phosphatase 119 U/L (38-126); Anion Gap 12.1 mEq/L (5-15); Aspartate Amino Transferase 69 U/L (14-36); Bilirubin,Total 0.4 mg/dl (0.2-1.3); Blood Urea Nitrogen 15 mg/dl (7-17); Calcium 8.4 mg/dl (8.4-10.2); Carbon Dioxide 21 mmol/L (22.0-30.0); Chloride 110 mmol/L (98-107); Creatinine Clearance Estimated 34 mL/min (50-200); Creatinine,Serum 1.20 mg/dl (0.52-1.04); Estimated Glomerular Filt Rate 44 ml/min (>60); GFR (African American) 53 ML/MIN (>60); Globulin 2.2 g/dL (1.3-3.2); Glucose 135 mg/dl (74-100); Potassium 4.1 mmoL/L (3.5-5.1); Sodium 139 mmol/L (136-145); Total Protein,Serum 6.0 g/dl (6.3-8.2)
[2025-02-23 07:30] VITALS: BP 127/74; PULSE 75; RESP 21; O2SAT 97
--- NOTE | 2025-02-23 07:39 | PC.NURSE ---
pt on baseline home o2 at 3l/nc. pt states she is ready to go home
[2025-02-23 07:42] LABS: Troponin I < 0.01 ng/ml (0.00-0.034)
--- NOTE | 2025-02-23 07:43 | PC.NURSE ---
dr flores at bedside
[2025-02-23 07:54] VITALS: BP 127/74; PULSE 78; RESP 18; TEMP 36.8; O2SAT 97
[2025-02-23 10:59] LABS: Reflex Lactic Add Lactic Reflex
--- OUTSIDE RECORDS SUMMARY | 2025-04-08 20:00 | XMS_ITS | Clinical Summary ---
Author Organization Unknown Care Team Providers Care Transverse Abdominal Muscle Nurse Name Role Phone NORMAN SUPERVISOR BELT AND LINK ASSEMBLY, LATISHA Unavailable Unavailable SUHAIL FRAGOSON, SERGIO Unavailable Unavailable CHRISTIAN CAMPA, EMILY Unavailable Unavailable Payers Payer Name Policy Type Policy Number Effective Date Expira tion Date MEDICARE[facility] [id number] Problems Condition Name Condition Details Condition Category [...] 02-06 00:00: 00 ATHSCL HEART DISEASE OF [place] CORONARY ARTERY W/O ANG PCTRS Active 08-07 [...] ANTITHROMBOT ICS/ANTIPLAT ELETS Active 08-07 00:00: 00 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 Active 08-07 00:00: 00 PROPERTY SPECIALIST (CURRENT) USE OF ORAL HYPOGLYCEMIC DRUGS Active [...] 500 mg tablet 02-04 00:00: 00 Yes [id number] ANTIBIOTIC 1 tablet DAILY 1 tablet DAILY (route: oral) Med Classific ation: Anti-Infe ctive Agents irbesartan 75 mg tablet 02-04 00:00: 00 Yes [id number] HYPERTENTIO N 1 tablet DAILY 1 tablet DAILY (route: oral) Med Classific ation: Cardiovas cular Therapy Agents Jardiance 10 mg tablet 02-04 00:00: 00 Yes [id number] HEART FAILURE 1 tablet DAILY 1 tablet DAILY (route: oral) Med Classific ation: Endocrine prednisone 20 mg tablet 02-04 00:00: 00 Yes [id number] ANTINFLAMIT ORY 2 tablet DAILY 2 tablet DAILY (route: oral) Med Classific ation: Endocrine spironolact one 25 mg tablet 02-04 00:00: 00 Yes [id number] DIURETIC 1 tablet DAILY 1 tablet DAILY (route: oral) Med Classific ation: Cardiovas cular Therapy Agents carvedilol 25 mg tablet 01-17 00:00: 00 Yes [id number] HEART FAILURE 1 tablet 2 TIMES DAILY 1 tablet 2 TIMES DAILY (route: oral) Med Classific ation: Cardiovas cular Therapy Agents furosemide 40 mg tablet 01-17 00:00: 00 Yes [id number] DIURETIC 1 tablet DAILY 1 tablet DAILY (route: oral) Med Classific ation: Cardiovas cular Therapy Agents furosemide 20 mg tablet 01-10 00:00: 00 02-09 00:00 :00 No [id number] Per instruc tions ONCE DAILY Per instructio ns ONCE DAILY (route: oral) Med Classific ation: Cardiovas cular Therapy Agents isosorbide mononitrate ER 60 mg tablet,exte nded release 24 hr 01-07 00:00: 00 Yes [id number] PREVENT ANGINA 1 tablet DAILY 1 tablet DAILY (route: oral) Med Classific ation: Cardiovas cular Therapy Agents albuterol sulfate HFA 90 mcg/actuati on aerosol inhaler 08-07 00:00: 00 Yes [id number] SOB OR WHEEZING 2 puff 4 TIMES DAILY 2 puff 4 TIMES DAILY (route: inhalation ) Med Classific ation: Respirato ry Therapy Agents atorvastati n 40 mg tablet 08-07 00:00: 00 Yes [id number] HYPERCHOLES TEROL 1 tablet DAILY 1 tablet DAILY (route: oral) Med Classific ation: Cardiovas cular Therapy Agents bupropion HCl 150 mg tablet,12 hr sustained-r elease(smok ing deterrent) 08-07 00:00: 00 Yes [id number] ANTIDEPRESS ANT 1 tablet 2 TIMES DAILY 1 tablet 2 TIMES DAILY (route: oral) Med Classific ation: Chemical Dependenc y, Agents to Treat cyanocobala min (vit B-12) 1,000 mcg tablet 08-07 00:00: 00 Yes [id number] SUPPLIMENT 1 tablet DAILY 1 tablet DAILY (route: oral) Med Classific ation: Electroly te Balance-N utritiona l Products ipratropium 0.5 mg-albutero l 3 mg (2.5 mg base)/3 mL nebulizatio n soln 08-07 00:00: 00 Yes [id number] SOB OR WHEEZING 3 mL 4 TIMES DAILY 3 mL 4 TIMES DAILY (route: inhalation ) Med Classific ation: Respirato ry Therapy Agents meloxicam 15 mg tablet 08-07 00:00: 00 Yes [id number] NSAID 1 tablet DAILY 1 tablet DAILY (route: oral) Med Classific ation: Analgesic , Anti-infl ammatory or Antipyret ic montelukast 10 mg tablet 08-07 00:00: 00 Yes [id number] ASTHMA 1 tablet BEDTIME 1 tablet BEDTIME (route: oral) Med Classific ation: Respirato ry Therapy Agents Plavix 75 mg tablet 08-07 00:00: 00 Yes [id number] ANTICOAGULA NT 1 tablet DAILY 1 tablet DAILY (route: oral) Med Classific ation: Hematolog ical Agents rivastigmin e 4.6 mg/24 hour transdermal patch 08-07 00:00: 00 Yes [id number] COGNITIVE SYMPTOMS 1 patch, transde rmal 24 hours DAILY 1 patch, transderma l 24 hours DAILY (route: transderma l) Med Classific ation: Cognitive Disorder Therapy sertraline 100 mg tablet 08-07 00:00: 00 Yes [id number] DEPRESSION 2 tablet DAILY 2 tablet DAILY (route: oral) Med Classific ation: Central Nervous System Agents Trelegy Ellipta 100 mcg-62.5 mcg-25 mcg powder for inhalation 08-07 00:00: 00 Yes [id number] COPD 1 inhalat ion DAILY 1 inhalation DAILY (route: inhalation ) Med Classific ation: Respirato ry Therapy Agents acetaminoph en 500 mg tablet 08-07 00:00: 00 Yes [id number] PAIN 2 tablet EVERY 8 HOURS 2 tablet EVERY 8 HOURS (route: oral) Med Classific ation: Analgesic , Anti-infl ammatory or Antipyret ic Adult Low Dose Aspirin 81 mg tablet,aaliyah yed release 08-07 00:00: 00 Yes [id number] BLOOD THINNER 1 tablet DAILY 1 tablet DAILY (route: oral) Med Classific ation: Hematolog ical Agents diphenhydra mine 25 mg tablet 08-07 00:00: 00 Yes [id number] ALLERGIES 1 tablet DAILY 1 tablet DAILY (route: oral) Med Classific ation: Respirato ry Therapy Agents ibuprofen 200 mg tablet 08-07 00:00: 00 Yes [id number] PAIN 1 tablet 2 TIMES DAILY 1 tablet 2 TIMES DAILY (route: oral) Med Classific ation: Analgesic , Anti-infl ammatory or Antipyret ic melatonin 12 mg tablet 08-07 00:00: 00 Yes [id number] SLEEP SUPPORT 1 tablet BEDTIME 1 tablet BEDTIME (route: oral) Med Classific ation: Central Nervous System Agents nitroglycer in 0.4 mg sublingual tablet 08-07 00:00: 00 Yes [id number] CHEST PAIN 1 tablet NEEDED 1 tablet NEEDED (route: sublingual ) Med Classific ation: Cardiovas cular Therapy Agents Vital Signs Vital Name Observation Time Observation Value Commen ts Temperature 2025-02-09 13:27:00.000 98.4 [degF] BMI (%) 2025-02-09 12:52:45.000 21 kg/m2 Height 2025-02-09 12:52:39.000 61 [in_us] Pulse 2025-02-09 13:27:00.000 76 /min O2 Saturation (%) 2025-02-09 13:27:00.000 99 % Respirations 2025-02-09 13:27:00.000 20 /min Weight (lbs) 2025-02-09 12:52:45.000 112 [lb_av] Systolic Blood Pressure 2025-02-09 13:30:00.000 178 mm [Hg] Diastolic Blood Pressure 2025-02-09 13:30:00.000 80 mm [Hg] Plan of Treatment Planned Activity Planned Date Details Comments Future Scheduled Test RN TO OBSE RVE, ASSESS, EVALUATE, AND DEVELOP AN INDIVIDUALIZED PLAN OF CARE. AGENCY MAY ACCEPT ORDERS FROM CONSULTING PHYSICIANS GILES ARMENTA RN TO OBSERVE AND ASSESS, DIRECTOR RADIO NEWS/WRAPPER AND PRESERVER TO OBSERVE FOR RISK FOR FALLS AND INSTRUCT IN FALL PREVENTION, HOME SAFETY, MEDICATION MANAGEMENT, INFECTION PREVENTION, AND NUTRITION MANAGEMENT. RN/DIRECTOR RADIO NEWS/WRAPPER AND PRESERVER NURSE MAY PERFORM O2 SATURATION LEVEL ON ADMISSION AND PRN, FOR RN TO ASSESS/DIRECTOR RADIO NEWS TO OBSERVE PATIENT, WITH NOTIFICATION TO THE PHYSICIAN IF SATURATION IS 90% IN THE ABSENCE OF MORE SPECIFIC PARAMETERS FROM THE PHYSICIAN. AGENCY MAY PERFORM A RESUMPTION OF CARE VISIT FOLLOWING ANY HOSPITAL ADMISSION. RN/DIRECTOR RADIO NEWS/WRAPPER AND PRESERVER TO MONITOR CO-MORBID CONDITIONS LISTED ON THE PLAN OF CARE AND ANY NEW CONDITIONS THAT PRESENT THEMSELVES DURING THIS EPISODE TO IDENTIFY CHANGES AND INTERVENE TO MINIMIZE COMPLICATIONS. VO LATISHA KILPELA SUPERVISOR BELT AND LINK ASSEMBLY [code = RN TO OBSERVE, ASSESS, EVALUATE, AND DEVELOP AN INDIVIDUALIZED PLAN OF CARE. AGENCY MAY ACCEPT ORDERS FROM CONSULTING PHYSICIANS GILES ARMENTA RN TO OBSERVE AND ASSESS, DIRECTOR RADIO NEWS/WRAPPER AND PRESERVER TO OBSERVE FOR RISK FOR FALLS AND INSTRUCT IN FALL PREVENTION, HOME SAFETY, MEDICATION MANAGEMENT, INFECTION PREVENTION, AND NUTRITION MANAGEMENT. RN/DIRECTOR RADIO NEWS/WRAPPER AND PRESERVER NURSE MAY PERFORM O2 SATURATION LEVEL ON ADMISSION AND PRN, FOR RN TO ASSESS/DIRECTOR RADIO NEWS TO OBSERVE PATIENT, WITH NOTIFICATION TO THE PHYSICIAN IF SATURATION IS 90% IN THE ABSENCE OF MORE SPECIFIC PARAMETERS FROM THE PHYSICIAN. AGENCY MAY PERFORM A RESUMPTION OF CARE VISIT FOLLOWING ANY HOSPITAL ADMISSION. RN/DIRECTOR RADIO NEWS/WRAPPER AND PRESERVER TO MONITOR CO-MORBID CONDITIONS LISTED ON THE PLAN OF CARE AND ANY NEW CONDITIONS THAT PRESENT THEMSELVES DURING THIS EPISODE TO IDENTIFY CHANGES AND INTERVENE TO MINIMIZE COMPLICATIONS. SUN [place] SUPERVISOR BELT AND LINK ASSEMBLY] Future Scheduled Test MEDICATION MANAGEMENT; RN/DIRECTOR RADIO NEWS/WRAPPER AND PRESERVER TO REVIEW MEDICATIONS FOR INTERACTIONS, EFFECTIVENESS OF DRUG THERAPY, AND SIGNS/SYMPTOMS OF ADVERSE REACTIONS. MAY INSTRUCT AND REINFORCE MEDICATION TEACHING RELATED TO THE USE OF MEDICATIONS, DOSAGE, FREQUENCY, PURPOSE, SIDE EFFECTS, AND TO REPORT COMPLICATIONS. [code = MEDICATION MANAGEMENT; RN/DIRECTOR RADIO NEWS/WRAPPER AND PRESERVER TO REVIEW MEDICATIONS FOR INTERACTIONS, EFFECTIVENESS OF DRUG THERAPY, AND SIGNS/SYMPTOMS OF ADVERSE REACTIONS. MAY INSTRUCT AND REINFORCE MEDICATION TEACHING RELATED TO THE USE OF MEDICATIONS, DOSAGE, FREQUENCY, PURPOSE, SIDE EFFECTS, AND TO REPORT COMPLICATIONS.] Future Scheduled Test RISK FOR H OSPITALIZATION; RN TO ASSESS/TEACH, WRAPPER AND PRESERVER/DIRECTOR RADIO NEWS TO OBSERVE/TEACH PATIENT/CAREGIVER ON RISK FOR HOSPITALIZATION/EMERGENCY ROOM VISITS, TEACH SIGNS AND SYMPTOMS THAT PUT PATIENT AT RISK, WHEN TO NOTIFY NURSE/PHYSICIAN OF COMPLICATIONS/DECLINE, AND WHEN TO CALL 911. [code = RISK FOR HOSPITALIZATION; RN TO ASSESS/TEACH, WRAPPER AND PRESERVER/DIRECTOR RADIO NEWS TO OBSERVE/TEACH PATIENT/CAREGIVER ON RISK FOR HOSPITALIZATION/EMERGENCY ROOM VISITS, TEACH SIGNS AND SYMPTOMS THAT PUT PATIENT AT RISK, WHEN TO NOTIFY NURSE/PHYSICIAN OF COMPLICATIONS/DECLINE, AND WHEN TO CALL 911.] Future Scheduled Test CARDIOVASC ULAR SYSTEM; RN TO ASSESS/TEACH, DIRECTOR RADIO NEWS/WRAPPER AND PRESERVER TO OBSERVE/TEACH RELATED TO ALTERED CARDIOVASCULAR STATUS TO MINIMIZE COMPLICATIONS AND REDUCE HOSPITALIZATION. [code = CARDIOVASCULAR SYSTEM; RN TO ASSESS/TEACH, DIRECTOR RADIO NEWS/WRAPPER AND PRESERVER TO OBSERVE/TEACH RELATED TO ALTERED CARDIOVASCULAR STATUS TO MINIMIZE COMPLICATIONS AND REDUCE HOSPITALIZATION.] Future Scheduled Test HEART FAIL URE; RN TO ASSESS/TEACH, DIRECTOR RADIO NEWS/WRAPPER AND PRESERVER TO OBSERVE/TEACH CARDIOPULMONARY SYSTEM TO IDENTIFY SIGNS [...] [code = HEART FAILURE; RN TO ASSESS/TEACH, DIRECTOR RADIO NEWS/WRAPPER AND PRESERVER TO OBSERVE/TEACH CARDIOPULMONARY SYSTEM TO IDENTIFY SIGNS [...] ON MANAGEMENT; RN TO ASSESS AND TEACH, DIRECTOR RADIO NEWS/WRAPPER AND PRESERVER TO OBSERVE AND TEACH WARNING SIGNS AND SYMPTOMS TO AVOID HOSPITALIZATION. [code = HYPERTENSION MANAGEMENT; RN TO ASSESS AND TEACH, DIRECTOR RADIO NEWS/WRAPPER AND PRESERVER TO OBSERVE AND TEACH WARNING SIGNS AND SYMPTOMS TO AVOID HOSPITALIZATION.] Future Scheduled Test ANGINA MAN AGEMENT; RN TO ASSESS AND TEACH, DIRECTOR RADIO NEWS/WRAPPER AND PRESERVER TO OBSERVE AND TEACH WARNING SIGNS AND SYMPTOMS TO AVOID HOSPITALIZATION. [code = ANGINA MANAGEMENT; RN TO ASSESS AND TEACH, DIRECTOR RADIO NEWS/WRAPPER AND PRESERVER TO OBSERVE AND TEACH WARNING SIGNS AND SYMPTOMS TO AVOID HOSPITALIZATION.] Future Scheduled Test PAIN MANAG EMENT; RN TO ASSESS AND TEACH, WRAPPER AND PRESERVER/DIRECTOR RADIO NEWS TO OBSERVE AND TEACH AND PROVIDE EDUCATION ON PAIN MANAGEMENT TECHNIQUES. [code = PAIN MANAGEMENT; RN TO ASSESS AND TEACH, WRAPPER AND PRESERVER/DIRECTOR RADIO NEWS TO OBSERVE AND TEACH AND PROVIDE EDUCATION ON PAIN MANAGEMENT TECHNIQUES.] Future Scheduled Test RN TO ASSE SS AND TEACH, DIRECTOR RADIO NEWS/WRAPPER AND PRESERVER TO OBSERVE AND TEACH FOR SIGNS AND SYMPTOMS OF SEPSIS AND/OR POST-SEPSIS SYNDROME AND INTERVENE TO MINIMIZE COMPLICATIONS. RN/DIRECTOR RADIO NEWS/WRAPPER AND PRESERVER TO PROVIDE SKILLED TEACHING TO PATIENT/CAREGIVER ON SEPSIS AND SELF-MANAGEMENT TECHNIQUES. RN/DIRECTOR RADIO NEWS/WRAPPER AND PRESERVER TO MONITOR PATIENT/CAREGIVER ADHERENCE TO MONITOR AND RECORD VITAL SIGNS INCLUDING TEMPERATURE, HEART RATE, RESPIRATIONS, AND SYMPTOMS. RN/DIRECTOR RADIO NEWS/WRAPPER AND PRESERVER TO PROVIDE SENIOR CARE TO ACCOMPLISH THE PATIENTS PERSONAL GOAL. [code = RN TO ASSESS AND TEACH, DIRECTOR RADIO NEWS/WRAPPER AND PRESERVER TO OBSERVE AND TEACH FOR SIGNS AND SYMPTOMS OF SEPSIS AND/OR POST-SEPSIS SYNDROME AND INTERVENE TO MINIMIZE COMPLICATIONS. RN/DIRECTOR RADIO NEWS/WRAPPER AND PRESERVER TO PROVIDE SKILLED TEACHING TO PATIENT/CAREGIVER ON SEPSIS AND SELF-MANAGEMENT TECHNIQUES. RN/DIRECTOR RADIO NEWS/WRAPPER AND PRESERVER TO MONITOR PATIENT/CAREGIVER ADHERENCE TO MONITOR AND RECORD VITAL SIGNS INCLUDING TEMPERATURE, HEART RATE, RESPIRATIONS, AND SYMPTOMS. RN/DIRECTOR RADIO NEWS/WRAPPER AND PRESERVER TO PROVIDE SENIOR CARE TO ACCOMPLISH THE PATIENTS PERSONAL GOAL. ] Future Scheduled Test PHYSICAL T HERAPIST TO EVALUATE FOR STRENGTH AND BALANCE. [code = PHYSICAL THERAPIST TO EVALUATE FOR STRENGTH AND BALANCE.] Future Scheduled Test OCCUPATION AL THERAPIST TO EVALUATE FOR INDEPENDENT AD. L'S. [code = OCCUPATIONAL THERAPIST TO EVALUATE FOR INDEPENDENT AD. L'S.] Future Scheduled Test PRN VISITS ; NUMBER OF RN/DIRECTOR RADIO NEWS/WRAPPER AND PRESERVER VISITS: 2 RN/DIRECTOR RADIO NEWS/WRAPPER AND PRESERVER TO PERFORM: RESPIRATORY ASSESSMENT FOR THE FOLLOWING REASONS: EXACERBATION OF RESPIRATORY ASSESSMENT [code = PRN VISITS; NUMBER OF RN/DIRECTOR RADIO NEWS/WRAPPER AND PRESERVER VISITS: 2 RN/DIRECTOR RADIO NEWS/WRAPPER AND PRESERVER TO PERFORM: RESPIRATORY ASSESSMENT FOR THE FOLLOWING REASONS: EXACERBATION OF RESPIRATORY ASSESSMENT ] Goal Patient Goal - BREATH BETTER Goal Provider Goal - A PLAN OF [...] End Date/Time Encounter Type Admission Type Attending [facility] Care Department Encounter ID Discharge Date Discharge Status Discharge Condition Discharge Reason Percent Goals Met 2025-02-09 00:00:00 2025-04-09 00:00:00 Outpatient NEW ADMISSION EMILY GONZALES [facility] [id number]
--- OUTSIDE RECORDS SUMMARY | 2025-04-08 20:00 | XMS_ITS | Clinical Summary ---
Author Organization Unknown Care Team Providers Care Mill Tender Washing Name Role Phone NORMAN COMMAND AND CONTROL OFFICER, LATISHA Unavailable Unavailable SUHAIL FRAGOSON, SERGIO Unavailable Unavailable CHRISTIAN CAMPA, EMILY Unavailable Unavailable Payers Payer Name Policy Type Policy Number Effective Date Expira tion Date MEDICARE.[facility] [id number] Problems Condition Name Condition Details Condition Category [...] 02-06 00:00: 00 ATHSCL HEART DISEASE OF [place] CORONARY ARTERY W/O ANG PCTRS Active 08-07 00:00: 00 EMPHYSEMA, UNSPECIFIED Active 08-07 00:00: 00 IRON DEFICIENCY ANEMIA SECONDARY TO BLOOD LOSS (CHRONIC) Active 08-07 00:00: 00 UNSPECIFIED MOOD [AFFECTIVE] DISORDER Active 08-07 00:00: 00 PULMONARY HYPERTENSION , UNSPECIFIED Active 08-07 00:00: 00 HYPERLIPIDEM IA, UNSPECIFIED Active 08-07 00:00: 00 DEPENDENCE ON SUPPLEMENTAL OXYGEN Active 08-07 00:00: 00 SENIOR LIVING (CURRENT) USE OF ANTITHROMBOT ICS/ANTIPLAT ELETS Active 08-07 00:00: 00 REFINED SYRUP OPERATOR (CURRENT) USE OF INHALED STEROIDS Active 08-07 00:00: 00 REFINED SYRUP OPERATOR (CURRENT) USE OF ORAL HYPOGLYCEMIC DRUGS Active 08-07 00:00: 00 SENIOR LIVING (CURRENT) USE OF NON-STEROIDA L NON-INFLAM (NSAID) [...] 500 mg tablet 02-04 00:00: 00 Yes [id number] ANTIBIOTIC 1 tablet DAILY 1 tablet DAILY (route: oral) Med Classific ation: Anti-Infe ctive Agents irbesartan 75 mg tablet 02-04 00:00: 00 Yes [id number] HYPERTENTIO N 1 tablet DAILY 1 tablet DAILY (route: oral) Med Classific ation: Cardiovas cular Therapy Agents Jardiance 10 mg tablet 02-04 00:00: 00 Yes [id number] HEART FAILURE 1 tablet DAILY 1 tablet DAILY (route: oral) Med Classific ation: Endocrine prednisone 20 mg tablet 02-04 00:00: 00 Yes [id number] ANTINFLAMIT ORY 2 tablet DAILY 2 tablet DAILY (route: oral) Med Classific ation: Endocrine spironolact one 25 mg tablet 02-04 00:00: 00 Yes [id number] DIURETIC 1 tablet DAILY 1 tablet DAILY (route: oral) Med Classific ation: Cardiovas cular Therapy Agents carvedilol 25 mg tablet 01-17 00:00: 00 Yes [id number] HEART FAILURE 1 tablet 2 TIMES DAILY 1 tablet 2 TIMES DAILY (route: oral) Med Classific ation: Cardiovas cular Therapy Agents furosemide 40 mg tablet 01-17 00:00: 00 Yes [id number] DIURETIC 1 tablet DAILY 1 tablet DAILY (route: oral) Med Classific ation: Cardiovas cular Therapy Agents furosemide 20 mg tablet 01-10 00:00: 00 02-09 00:00 :00 No [id number] Per instruc tions ONCE DAILY Per instructio ns ONCE DAILY (route: oral) Med Classific ation: Cardiovas cular Therapy Agents isosorbide mononitrate ER 60 mg tablet,exte nded release 24 hr 01-07 00:00: 00 Yes [id number] PREVENT ANGINA 1 tablet DAILY 1 tablet DAILY (route: oral) Med Classific ation: Cardiovas cular Therapy Agents albuterol sulfate HFA 90 mcg/actuati on aerosol inhaler 08-07 00:00: 00 Yes [id number] SOB OR WHEEZING 2 puff 4 TIMES DAILY 2 puff 4 TIMES DAILY (route: inhalation ) Med Classific ation: Respirato ry Therapy Agents atorvastati n 40 mg tablet 08-07 00:00: 00 Yes [id number] HYPERCHOLES TEROL 1 tablet DAILY 1 tablet DAILY (route: oral) Med Classific ation: Cardiovas cular Therapy Agents bupropion HCl 150 mg tablet,12 hr sustained-r elease(smok ing deterrent) 08-07 00:00: 00 Yes [id number] ANTIDEPRESS ANT 1 tablet 2 TIMES DAILY 1 tablet 2 TIMES DAILY (route: oral) Med Classific ation: Chemical Dependenc y, Agents to Treat cyanocobala min (vit B-12) 1,000 mcg tablet 08-07 00:00: 00 Yes [id number] SUPPLIMENT 1 tablet DAILY 1 tablet DAILY (route: oral) Med Classific ation: Electroly te Balance-N utritiona l Products ipratropium 0.5 mg-albutero l 3 mg (2.5 mg base)/3 mL nebulizatio n soln 08-07 00:00: 00 Yes [id number] SOB OR WHEEZING 3 mL 4 TIMES DAILY 3 mL 4 TIMES DAILY (route: inhalation ) Med Classific ation: Respirato ry Therapy Agents meloxicam 15 mg tablet 08-07 00:00: 00 Yes [id number] NSAID 1 tablet DAILY 1 tablet DAILY (route: oral) Med Classific ation: Analgesic , Anti-infl ammatory or Antipyret ic montelukast 10 mg tablet 08-07 00:00: 00 Yes [id number] ASTHMA 1 tablet BEDTIME 1 tablet BEDTIME (route: oral) Med Classific ation: Respirato ry Therapy Agents Plavix 75 mg tablet 08-07 00:00: 00 Yes [id number] ANTICOAGULA NT 1 tablet DAILY 1 tablet DAILY (route: oral) Med Classific ation: Hematolog ical Agents rivastigmin e 4.6 mg/24 hour transdermal patch 08-07 00:00: 00 Yes [id number] COGNITIVE SYMPTOMS 1 patch, transde rmal 24 hours DAILY 1 patch, transderma l 24 hours DAILY (route: transderma l) Med Classific ation: Cognitive Disorder Therapy sertraline 100 mg tablet 08-07 00:00: 00 Yes [id number] DEPRESSION 2 tablet DAILY 2 tablet DAILY (route: oral) Med Classific ation: Central Nervous System Agents Trelegy Ellipta 100 mcg-62.5 mcg-25 mcg powder for inhalation 08-07 00:00: 00 Yes [id number] COPD 1 inhalat ion DAILY 1 inhalation DAILY (route: inhalation ) Med Classific ation: Respirato ry Therapy Agents acetaminoph en 500 mg tablet 08-07 00:00: 00 Yes [id number] PAIN 2 tablet EVERY 8 HOURS 2 tablet EVERY 8 HOURS (route: oral) Med Classific ation: Analgesic , Anti-infl ammatory or Antipyret ic Adult Low Dose Aspirin 81 mg tablet,aaliyah yed release 08-07 00:00: 00 Yes [id number] BLOOD THINNER 1 tablet DAILY 1 tablet DAILY (route: oral) Med Classific ation: Hematolog ical Agents diphenhydra mine 25 mg tablet 08-07 00:00: 00 Yes [id number] ALLERGIES 1 tablet DAILY 1 tablet DAILY (route: oral) Med Classific ation: Respirato ry Therapy Agents ibuprofen 200 mg tablet 08-07 00:00: 00 Yes [id number] PAIN 1 tablet 2 TIMES DAILY 1 tablet 2 TIMES DAILY (route: oral) Med Classific ation: Analgesic , Anti-infl ammatory or Antipyret ic melatonin 12 mg tablet 08-07 00:00: 00 Yes [id number] SLEEP SUPPORT 1 tablet BEDTIME 1 tablet BEDTIME (route: oral) Med Classific ation: Central Nervous System Agents nitroglycer in 0.4 mg sublingual tablet 08-07 00:00: 00 Yes [id number] CHEST PAIN 1 tablet NEEDED 1 tablet [...] GILES ARMENTA RN TO OBSERVE AND ASSESS, BUILDING EQUIPMENT OPERATOR/ASSEMBLY ROOM SUPERVISOR TO OBSERVE FOR RISK FOR FALLS AND INSTRUCT IN FALL PREVENTION, HOME SAFETY, MEDICATION MANAGEMENT, INFECTION PREVENTION, AND NUTRITION MANAGEMENT. RN/BUILDING EQUIPMENT OPERATOR/ASSEMBLY ROOM SUPERVISOR NURSE MAY PERFORM O2 SATURATION LEVEL ON ADMISSION AND PRN, FOR RN TO ASSESS/BUILDING EQUIPMENT OPERATOR TO OBSERVE PATIENT, WITH NOTIFICATION TO THE PHYSICIAN IF SATURATION IS 90% IN THE ABSENCE OF MORE SPECIFIC PARAMETERS FROM THE PHYSICIAN. AGENCY MAY PERFORM A RESUMPTION OF CARE VISIT FOLLOWING ANY HOSPITAL ADMISSION. RN/BUILDING EQUIPMENT OPERATOR/ASSEMBLY ROOM SUPERVISOR TO MONITOR CO-MORBID CONDITIONS LISTED ON THE PLAN OF CARE AND ANY NEW CONDITIONS THAT PRESENT THEMSELVES DURING THIS EPISODE TO IDENTIFY CHANGES AND INTERVENE TO MINIMIZE COMPLICATIONS. VO LATISHA KILPELA COMMAND AND CONTROL OFFICER [code = RN TO OBSERVE, ASSESS, EVALUATE, AND DEVELOP AN INDIVIDUALIZED PLAN OF CARE. AGENCY MAY ACCEPT ORDERS FROM CONSULTING PHYSICIANS GILES ARMENTA RN TO OBSERVE AND ASSESS, BUILDING EQUIPMENT OPERATOR/ASSEMBLY ROOM SUPERVISOR TO OBSERVE FOR RISK FOR FALLS AND INSTRUCT IN FALL PREVENTION, HOME SAFETY, MEDICATION MANAGEMENT, INFECTION PREVENTION, AND NUTRITION MANAGEMENT. RN/BUILDING EQUIPMENT OPERATOR/ASSEMBLY ROOM SUPERVISOR NURSE MAY PERFORM O2 SATURATION LEVEL ON ADMISSION AND PRN, FOR RN TO ASSESS/BUILDING EQUIPMENT OPERATOR TO OBSERVE PATIENT, WITH NOTIFICATION TO THE PHYSICIAN IF SATURATION IS 90% IN THE ABSENCE OF MORE SPECIFIC PARAMETERS FROM THE PHYSICIAN. AGENCY MAY PERFORM A RESUMPTION OF CARE VISIT FOLLOWING ANY HOSPITAL ADMISSION. RN/BUILDING EQUIPMENT OPERATOR/ASSEMBLY ROOM SUPERVISOR TO MONITOR CO-MORBID CONDITIONS LISTED ON THE PLAN OF CARE AND ANY NEW CONDITIONS THAT PRESENT THEMSELVES DURING THIS EPISODE TO IDENTIFY CHANGES AND INTERVENE TO MINIMIZE COMPLICATIONS. SUN [place] COMMAND AND CONTROL OFFICER] Future Scheduled Test MEDICATION MANAGEMENT; RN/BUILDING EQUIPMENT OPERATOR/ASSEMBLY ROOM SUPERVISOR TO REVIEW MEDICATIONS FOR INTERACTIONS, EFFECTIVENESS OF DRUG THERAPY, AND SIGNS/SYMPTOMS OF ADVERSE REACTIONS. MAY INSTRUCT AND REINFORCE MEDICATION TEACHING RELATED TO THE USE OF MEDICATIONS, DOSAGE, FREQUENCY, PURPOSE, SIDE EFFECTS, AND TO REPORT COMPLICATIONS. [code = MEDICATION MANAGEMENT; RN/BUILDING EQUIPMENT OPERATOR/ASSEMBLY ROOM SUPERVISOR TO REVIEW MEDICATIONS FOR INTERACTIONS, EFFECTIVENESS OF DRUG THERAPY, AND SIGNS/SYMPTOMS OF ADVERSE REACTIONS. MAY INSTRUCT AND REINFORCE MEDICATION TEACHING RELATED TO THE USE OF MEDICATIONS, DOSAGE, FREQUENCY, PURPOSE, SIDE EFFECTS, AND TO REPORT COMPLICATIONS.] Future Scheduled Test RISK FOR H OSPITALIZATION; RN TO ASSESS/TEACH, ASSEMBLY ROOM SUPERVISOR/BUILDING EQUIPMENT OPERATOR TO OBSERVE/TEACH PATIENT/CAREGIVER ON RISK FOR HOSPITALIZATION/EMERGENCY ROOM VISITS, TEACH SIGNS AND SYMPTOMS THAT PUT PATIENT AT RISK, WHEN TO NOTIFY NURSE/PHYSICIAN OF COMPLICATIONS/DECLINE, AND WHEN TO CALL 911. [code = RISK FOR HOSPITALIZATION; RN TO ASSESS/TEACH, ASSEMBLY ROOM SUPERVISOR/BUILDING EQUIPMENT OPERATOR TO OBSERVE/TEACH PATIENT/CAREGIVER ON RISK FOR HOSPITALIZATION/EMERGENCY ROOM VISITS, TEACH SIGNS AND SYMPTOMS THAT PUT PATIENT AT RISK, WHEN TO NOTIFY NURSE/PHYSICIAN OF COMPLICATIONS/DECLINE, AND WHEN TO CALL 911.] Future Scheduled Test CARDIOVASC ULAR SYSTEM; RN TO ASSESS/TEACH, BUILDING EQUIPMENT OPERATOR/ASSEMBLY ROOM SUPERVISOR TO OBSERVE/TEACH RELATED TO ALTERED CARDIOVASCULAR STATUS TO MINIMIZE COMPLICATIONS AND REDUCE HOSPITALIZATION. [code = CARDIOVASCULAR SYSTEM; RN TO ASSESS/TEACH, BUILDING EQUIPMENT OPERATOR/ASSEMBLY ROOM SUPERVISOR TO OBSERVE/TEACH RELATED TO ALTERED CARDIOVASCULAR STATUS TO MINIMIZE COMPLICATIONS AND REDUCE HOSPITALIZATION.] Future Scheduled Test HEART FAIL URE; RN TO ASSESS/TEACH, BUILDING EQUIPMENT OPERATOR/ASSEMBLY ROOM SUPERVISOR TO OBSERVE/TEACH CARDIOPULMONARY SYSTEM TO IDENTIFY [...] [code = HEART FAILURE; RN TO ASSESS/TEACH, BUILDING EQUIPMENT OPERATOR/ASSEMBLY ROOM SUPERVISOR TO OBSERVE/TEACH CARDIOPULMONARY SYSTEM TO IDENTIFY [...] ON MANAGEMENT; RN TO ASSESS AND TEACH, BUILDING EQUIPMENT OPERATOR/ASSEMBLY ROOM SUPERVISOR TO OBSERVE AND TEACH WARNING SIGNS AND SYMPTOMS TO AVOID HOSPITALIZATION. [code = HYPERTENSION MANAGEMENT; RN TO ASSESS AND TEACH, BUILDING EQUIPMENT OPERATOR/ASSEMBLY ROOM SUPERVISOR TO OBSERVE AND TEACH WARNING SIGNS AND SYMPTOMS TO AVOID HOSPITALIZATION.] Future Scheduled Test ANGINA MAN AGEMENT; RN TO ASSESS AND TEACH, BUILDING EQUIPMENT OPERATOR/ASSEMBLY ROOM SUPERVISOR TO OBSERVE AND TEACH WARNING SIGNS AND SYMPTOMS TO AVOID HOSPITALIZATION. [code = ANGINA MANAGEMENT; RN TO ASSESS AND TEACH, BUILDING EQUIPMENT OPERATOR/ASSEMBLY ROOM SUPERVISOR TO OBSERVE AND TEACH WARNING SIGNS AND SYMPTOMS TO AVOID HOSPITALIZATION.] Future Scheduled Test PAIN MANAG EMENT; RN TO ASSESS AND TEACH, ASSEMBLY ROOM SUPERVISOR/BUILDING EQUIPMENT OPERATOR TO OBSERVE AND TEACH AND PROVIDE EDUCATION ON PAIN MANAGEMENT TECHNIQUES. [code = PAIN MANAGEMENT; RN TO ASSESS AND TEACH, ASSEMBLY ROOM SUPERVISOR/BUILDING EQUIPMENT OPERATOR TO OBSERVE AND TEACH AND PROVIDE EDUCATION ON PAIN MANAGEMENT TECHNIQUES.] Future Scheduled Test RN TO ASSE SS AND TEACH, BUILDING EQUIPMENT OPERATOR/ASSEMBLY ROOM SUPERVISOR TO OBSERVE AND TEACH FOR SIGNS AND SYMPTOMS OF SEPSIS AND/OR POST-SEPSIS SYNDROME AND INTERVENE TO MINIMIZE COMPLICATIONS. RN/BUILDING EQUIPMENT OPERATOR/ASSEMBLY ROOM SUPERVISOR TO PROVIDE SKILLED TEACHING TO PATIENT/CAREGIVER ON SEPSIS AND SELF-MANAGEMENT TECHNIQUES. RN/BUILDING EQUIPMENT OPERATOR/ASSEMBLY ROOM SUPERVISOR TO MONITOR PATIENT/CAREGIVER ADHERENCE TO MONITOR AND RECORD VITAL SIGNS INCLUDING TEMPERATURE, HEART RATE, RESPIRATIONS, AND SYMPTOMS. RN/BUILDING EQUIPMENT OPERATOR/ASSEMBLY ROOM SUPERVISOR TO PROVIDE SHELTER TO ACCOMPLISH THE PATIENTS PERSONAL GOAL. [code = RN TO ASSESS AND TEACH, BUILDING EQUIPMENT OPERATOR/ASSEMBLY ROOM SUPERVISOR TO OBSERVE AND TEACH FOR SIGNS AND SYMPTOMS OF SEPSIS AND/OR POST-SEPSIS SYNDROME AND INTERVENE TO MINIMIZE COMPLICATIONS. RN/BUILDING EQUIPMENT OPERATOR/ASSEMBLY ROOM SUPERVISOR TO PROVIDE SKILLED TEACHING TO PATIENT/CAREGIVER ON SEPSIS AND SELF-MANAGEMENT TECHNIQUES. RN/BUILDING EQUIPMENT OPERATOR/ASSEMBLY ROOM SUPERVISOR TO MONITOR PATIENT/CAREGIVER ADHERENCE TO MONITOR AND RECORD VITAL SIGNS INCLUDING TEMPERATURE, HEART RATE, RESPIRATIONS, AND SYMPTOMS. RN/BUILDING EQUIPMENT OPERATOR/ASSEMBLY ROOM SUPERVISOR TO PROVIDE SHELTER TO ACCOMPLISH THE PATIENTS PERSONAL GOAL. ] Future Scheduled Test PHYSICAL T HERAPIST TO EVALUATE FOR STRENGTH AND BALANCE. [code = PHYSICAL THERAPIST TO EVALUATE FOR STRENGTH AND BALANCE.] Future Scheduled Test OCCUPATION AL THERAPIST TO EVALUATE FOR INDEPENDENT AD. L'S. [code = OCCUPATIONAL THERAPIST TO EVALUATE FOR INDEPENDENT AD. L'S.] Future Scheduled Test PRN VISITS ; NUMBER OF RN/BUILDING EQUIPMENT OPERATOR/ASSEMBLY ROOM SUPERVISOR VISITS: 2 RN/BUILDING EQUIPMENT OPERATOR/ASSEMBLY ROOM SUPERVISOR TO PERFORM: RESPIRATORY ASSESSMENT FOR THE FOLLOWING REASONS: EXACERBATION OF RESPIRATORY ASSESSMENT [code = PRN VISITS; NUMBER OF RN/BUILDING EQUIPMENT OPERATOR/ASSEMBLY ROOM SUPERVISOR VISITS: 2 RN/BUILDING EQUIPMENT OPERATOR/ASSEMBLY ROOM SUPERVISOR TO PERFORM: RESPIRATORY ASSESSMENT FOR THE [...] End Date/Time Encounter Type Admission Type Attending [facility] Care Department Encounter ID Discharge Date Discharge Status Discharge Condition Discharge Reason Percent Goals Met 2025-02-09 00:00:00 2025-04-09 00:00:00 Outpatient NEW ADMISSION EMILY GONZALES [facility] [id number] .00
== END 2025-02-23 08:59 | disposition home or self-care (01) ==
PROVIDERS: Emergency Medicine; Emergency Provider Student in an Organized Health Care Education/Training Program; PCP Nurse Practitioner
DX: J44.1 Chronic obstructive pulmonary disease with (acute) exacerbation (principal); R00.0 Tachycardia, unspecified; I27.20 Pulmonary hypertension, unspecified; E78.5 Hyperlipidemia, unspecified; I50.33 Acute on chronic diastolic (congestive) heart failure; I25.10 Atherosclerotic heart disease of native coronary artery without angina pectoris
CPT/HCPCS: 71045; 80053; 82803; 84484; 85025; 93005; 96374; 99285; J2919; J3475

== ENCOUNTER 2025-02-25 08:15 | Inpatient (IN) | payer MEDICARE, SELFPAY ==
[2025-02-25] VITALS (21 sets, daily range): BP systolic 90–197; BP diastolic 38–120; PULSE 65–110; RESP 19–34; TEMP 36.3–37; O2SAT 96–100; BMI 27.3; BMI 23.2
--- NOTE | 2025-02-25 08:20 | XR_ITS ---
FINAL REPORT CLINICAL HISTORY: shortness of breath COMPARISON: 02/23/2025 FINDINGS: A single frontal view of the chest was obtained. There is underlying emphysema. Interstitial prominence has resolved since the prior exam. Minimal left perihilar atelectasis is new. There is no evidence of effusion or pneumothorax. Mediastinum is unremarkable. Heart size is normal. IMPRESSION: Resolved interstitial changes, presumed edema. No evidence of pneumonia. Reviewed, Interpreted and Dictated by Renzo Mcintyre MD Transcribed by Yue Prieto Authenticated and [facility]
[2025-02-25] MEDS: ONDANSETRON 4MG/2ML VIAL 4 MG IV (08:21)
--- NOTE | 2025-02-25 08:23 | HMH.EDGENADL ---
Discharge Plan Disposition Patient Disposition: Admitted Prescriptions Prescriptions: No Action cyanocobalamin (vitamin B-12) 1,000 mcg tablet 1,000 mcg PO DAILY Patient Comments: TAKE ONE (1) TABLET EVERY DAY BY ORAL ROUTE DIRECTED FOR 30 DAYS. meloxicam 15 mg tablet 15 mg PO DAILY Patient Comments: TAKE 1 TABLET BY MOUTH ONCE DAILY FOR 90 DAYS montelukast 10 mg tablet 10 mg PO HS Patient Comments: TAKE 1 TABLET BY MOUTH ONCE DAILY FOR 90 DAYS isosorbide mononitrate 60 mg tablet extended release 24 hr 60 mg PO DAILY Qty: 30 3RF Trelegy Ellipta 100-62.5-25 mcg blister with device 1 inh inhalation DAILY 90 Days Qty: 60 3RF ipratropium-albuterol 0.5 mg-3 mg(2.5 mg base)/3 mL solution for nebulization 3 ml inhalation Q6HP PRN (Reason: shortness of breath or wheezing) 30 Days Qty: 180 0RF albuterol sulfate [Ventolin HFA] 90 mcg/actuation HFA aerosol inhaler 2 inh inhalation QID PRN (Reason: shortness of breath or wheezing) 90 Days Qty: 8.5 3RF carvedilol 25 mg Tablet 25 mg PO BID 30 Days Qty: 60 3RF Rx Instructions: must administer with a meal/food furosemide 40 mg Tablet 40 mg PO DAILY 30 Days Qty: 30 3RF spironolactone 25 mg Tablet 25 mg PO DAILY 30 Days Qty: 30 0RF irbesartan 75 mg Tablet 75 mg PO DAILY 30 Days Qty: 30 0RF Jardiance 10 mg Tablet 10 mg PO DAILY 30 Days Qty: 30 0RF prednisone 20 mg tablet 20 mg PO DAILY 4 Days Qty: 4 0RF atorvastatin 40 mg tablet 40 mg PO HS sertraline 100 mg tablet 200 mg PO DAILY clopidogrel 75 mg tablet 75 mg PO DAILY albuterol sulfate 90 mcg/actuation HFA aerosol inhaler 2 inh inhalation QIDP PRN (Reason: shortness of breath or wheezing) rivastigmine 4.6 mg/24 hour Patch 24 Hour 4.6 mg topical DAILY Rx Instructions: changes every other day due to nausea prednisone 20 mg tablet 40 mg PO DAILY 2 Days Qty: 4 0RF hydrocodone-acetaminophen 7.5-325 mg tablet 1 tab PO Q6H PRN (Reason: pain) 3 Days Qty: 12 0RF cefdinir 300 mg capsule 300 mg PO BID 2 Days Qty: 4 0RF polyethylene glycol 3350 [HealthyLax] 17 gram Powder In Packet 17 g PO DAILY 30 Days Qty: 30 0RF Referrals Follow up/Referrals: Indy Lora APRN [Primary Care Provider, Medical] - See instructions Clinical Impressions Clinical Impression: COPD exacerbation, Elevated troponin Print Language Print Language: Maltese Discharge ED Provider: Sterling Sim General Adult HPI General Chief complaint: Shortness of Breath/Dyspnea Stated complaint: SOA Time Seen by Provider: 02/25/25 08:18 Mode of Arrival: EMS Source of Information: EMS Limitations: No Limitations History of Present Illness HPI narrative: Loreta Santiago is a 74-year-old female with a history of COPD, heart failure, chronic anemia who presents to the Emergency Department via EMS for shortness of breath. Patient was seen in the emergency department 2 days ago for COPD exacerbation and elected to go home after treatment. She is on 4 L nasal cannula at baseline. Per EMS, she had worsening shortness of breath today and was found tripoding on the edge of the bed. She received an albuterol treatment prior to arrival. She is short of breath and speaking in shortened sentences. She is not sure if she would want a breathing tube at this time if needed. Related Data Home Medications ?Medication ?Instructions ?Recorded ?Confirmed atorvastatin 40 mg tablet 40 mg PO HS 12/31/23 02/20/25 clopidogrel 75 mg tablet 75 mg PO DAILY 12/31/23 02/20/25 sertraline 100 mg tablet 200 mg PO DAILY 12/31/23 02/20/25 cyanocobalamin (vitamin B-12) 1,000 mcg PO DAILY 04/02/24 02/20/25 1,000 mcg tablet meloxicam 15 mg tablet 15 mg PO DAILY 01/07/25 02/20/25 montelukast 10 mg tablet 10 mg PO HS 01/07/25 02/20/25 albuterol sulfate 90 mcg/actuation 2 inh inhalation QIDP PRN 02/12/25 02/20/25 aerosol inhaler shortness of breath or wheezing rivastigmine 4.6 mg/24 hour 4.6 mg topical DAILY 02/14/25 02/20/25 transdermal patch Previous Rx's ?Medication ?Instructions ?Recorded isosorbide mononitrate 60 mg 60 mg PO DAILY #30 tabs 01/07/25 tablet,extended release 24 hr carvedilol 25 mg tablet 25 mg PO BID 30 days #60 tabs 01/17/25 furosemide 40 mg tablet 40 mg PO DAILY 30 days #30 tabs 01/17/25 empagliflozin 10 mg tablet 10 mg PO DAILY 30 days #30 tabs 02/04/25 (Jardiance) irbesartan 75 mg tablet 75 mg PO DAILY 30 days #30 tabs 02/04/25 spironolactone 25 mg tablet 25 mg PO DAILY 30 days #30 tabs 02/04/25 cefdinir 300 mg capsule 300 mg PO BID 2 days #4 caps 02/14/25 hydrocodone 7.5 mg-acetaminophen 1 tab PO Q6H PRN pain 3 days #12 02/14/25 325 mg tablet tabs polyethylene glycol 3350 17 gram 17 g PO DAILY 30 days #30 ea 02/14/25 oral powder packet (HealthyLax) prednisone 20 mg tablet 40 mg (2 x 20 mg) PO DAILY 2 days 02/14/25 #4 tabs fluticasone fur. 100 mcg-umeclid 1 inh inhalation DAILY 90 days #60 02/20/25 62.5 mcg-vilant 25 mcg ea inhalat.powder (Trelegy Ellipta) albuterol sulfate 90 mcg/actuation 2 inh inhalation QID PRN shortness 02/21/25 aerosol inhaler (Ventolin HFA) of breath or wheezing 90 days #8.5 grams ipratropium 0.5 mg-albuterol 3 mg 3 ml inhalation Q6HP PRN shortness 02/21/25 (2.5 mg base)/3 mL nebulization of breath or wheezing 30 days #180 soln mL prednisone 20 mg tablet 20 mg PO DAILY 4 days #4 tabs 02/23/25 Allergies Allergy/AdvReac Type Severity Reaction Status Date / Time No Known Allergies Allergy Verified 02/20/25 13:44 [facility] Disclaimer: The information contained in this section may have been updated after the patient was seen, as this information can be updated by other users. Medical History (Updated 02/25/25 @ 13:20 by Sterling Sim MD) COPD mixed type CAP (community acquired pneumonia) Other forms of dyspnea Pulmonary hypertension Hyperlipidemia Hypertension Dyspnea Atypical angina Chronic respiratory failure with hypoxia Encounter for screening for malignant neoplasm of lung Smoking greater than 30 pack years Pulmonary emphysema COPD exacerbation BMI less than 19,adult (HFpEF) heart failure with preserved ejection fraction Tobacco dependence Dependence on supplemental oxygen Coronary artery disease Iron deficiency anemia COPD (chronic obstructive pulmonary disease) Surgical History Hx of esophagogastroduodenoscopy History of colonoscopy History of hysterectomy History of heart artery stent S/P cardiac catheterization Family History Father Alzheimer disease Mother Stroke Social History (Updated 02/20/25 @ 13:48 by EVELYN Paiz) Smoking Status: Former smoker tobacco type: cigarettes packs per day: 1 years smoked: 50 smoking status stop date: 3 years ago alcohol intake: former substance use type: denies use current occupational status: other Travel in the last 8 weeks?: None Have you lived/traveled outside [place] in past 30 days?: No Contact w/someone who lives/traveled outside [place] past 30 days?: No Exposure to someone with infectious disease in past 14 days?: No Do you have a fever (greater than 100.4 F or 38 C)?: No Have you tested positive for COVID-19?: No Exposed to someone with COVID-19 in past 14 days?: No Do you have a sore throat?: No Do you have a cough?: No Do you have any weakness?: No Do you have any diarrhea?: No Are you experiencing any unusual bleeding?: No Do you have any muscle aches/pain?: No Do you have any abdominal pain?: No Are you experiencing loss of taste or smell?: No Other Medical History Have you received the Flu Vaccine for this season: No Have you received the Pneumonia Vaccine: Yes ROS Obtained: Yes Systems reviewed as appropriate & no additional complaints except as documented Physical Exam General General appearance: alert Comment: On CPAP, increased work with breathing, tripoding Head Head exam: atraumatic Eye Eye exam: Present normal appearance ENT ENT exam: Present normal external ear exam Neck Neck exam: Present full ROM Chest Chest inspection: Present symmetric chest wall rise Respiratory Respiratory exam: Present respiratory distress; Absent normal lung sounds bilaterally (Diminished breath sounds throughout, speaking in shortened sentences), wheezes or stridor Cardiovascular Cardiovascular exam: Present normal rhythm and tachycardia Abdominal Exam Abdominal exam: Present soft; Absent tenderness or guarding Extremities Exam Extremities exam: Present normal inspection; Absent edema Back Exam Back exam: Present normal inspection Neurological Exam Neurological exam: Present alert and oriented X3 Psychiatric Psychiatric exam: Present normal affect Skin Skin exam: Present warm and dry Medical Decision Making Medical Records Screening: Per USPSTF and CDC recommendations, given the prevalence of disease in our region, it is our hospital?s policy to screen for HIV and viral Hepatitis for all patients aged 18 and over and those with ongoing risk factors. Vasquez Inquiry Pt receiving controlled substance: No Vital Signs: 02/25/25 08:30 02/25/25 08:30 02/25/25 08:46 Temperature 97.4 F L Temperature Source Axillary Pulse Rate 91 H 91 H Pulse Rate [Right Radial] 110 H Respiratory Rate 34 H 25 H Blood Pressure 197/89 H Blood Pressure [Right Arm] 170/120 H Blood Pressure Mean Blood Pressure Mean [Right Arm] 136 02 Sat by Pulse Oximetry 97 98 Oxygen Delivery Method Venturi Mask Venturi Mask Oxygen Flow Rate (LPM) Fraction of Inspired Oxygen 50 02/25/25 09:01 02/25/25 09:31 02/25/25 10:00 Temperature Temperature Source Pulse Rate 88 Pulse Rate [Right Radial] Respiratory Rate 28 H 21 22 Blood Pressure 175/38 H 149/58 H 90/75 L Blood Pressure [Right Arm] Blood Pressure Mean Blood Pressure Mean [Right Arm] 02 Sat by Pulse Oximetry 100 Oxygen Delivery Method Oxygen Flow Rate (LPM) Fraction of Inspired Oxygen 02/25/25 11:00 02/25/25 11:30 02/25/25 12:00 Temperature Temperature Source Pulse Rate 85 85 Pulse Rate [Right Radial] Respiratory Rate 25 H 21 26 H Blood Pressure 152/63 H 165/71 H 185/87 H Blood Pressure [Right Arm] Blood Pressure Mean 92 Blood Pressure Mean [Right Arm] 02 Sat by Pulse Oximetry 96 98 Oxygen Delivery Method Nasal Cannula Nasal Cannula Nasal Cannula Oxygen Flow Rate (LPM) 3 3 3 Fraction of Inspired Oxygen 02/25/25 12:42 Temperature Temperature Source Pulse Rate Pulse Rate [Right Radial] Respiratory Rate Blood Pressure Blood Pressure [Right Arm] Blood Pressure Mean Blood Pressure Mean [Right Arm] 02 Sat by Pulse Oximetry 98 Oxygen Delivery Method Vapotherm Oxygen Flow Rate (LPM) 25 Fraction of Inspired Oxygen 32 Lab Data Lab Results 02/25/25 08:20: VBG pH 7.18 L, VBG pCO2 52.2 H, VBG pO2 87.6 H, VBG HCO3 19.0 L, VBG Total CO2 20.6 L, VBG O2 Saturation 95.2 H, VBG Base Excess -9.4 L, VBG Lactic Acid 1.3 02/25/25 08:23: WBC 17.6 H D, RBC 3.74 L, Hgb 9.4 L, Hct 31.5 L, MCV 84.2, MCH 25.1 L, MCHC 29.8 L, RDW 23.0 H, Plt Count 260, MPV 9.8, Neut % (Auto) 73.1, Lymph % (Auto) 15.6, Chase % (Auto) 8.1, Eos % (Auto) 2.4, Baso % (Auto) 0.3, Neut # (Auto) 12.9 H, Lymph # (Auto) 2.8, Chase # (Auto) 1.4 H, Eos # (Auto) 0.4, Baso # (Auto) 0.1, Sodium 139, Potassium 4.6, Chloride 108 H, Carbon Dioxide 24, Anion Gap 11.6, BUN 18 H, Creatinine 1.20 H, Estimated Creat Clear 41, Estimated GFR 44 L, Est GFR ( Amer) 53 L, Glucose 126 H, Calcium 8.8, Total Bilirubin 0.6, AST 34 D, ALT 26, Alkaline Phosphatase 104, Troponin I 0.05 H, NT-Pro-B Natriuret Pep 4930 H, Total Protein 6.7, Albumin 4.1, Globulin 2.6, Albumin/Globulin Ratio 1.6 02/25/25 11:14: Troponin I 0.06 H 02/25/25 08:23 02/25/25 08:23 Orders (Tests/Meds): ED MEDICATIONS Discontinued Medications Generic Name Dose Route Start Last Admin Trade Name Freq PRN Reason Stop Dose Admin Albuterol/Ipratropium 9 ml 02/25/25 08:20 02/25/25 08:45 Ipratropium/Albuterol 3 Ml Neb IH 02/25/25 08:21 9 ml ONCE ONE Administration Magnesium Sulfate 2 gm in 50 mls @ 50 mls/hr 02/25/25 08:20 02/25/25 08:51 Magnesium Sulfate 2gm/50ml Premix IV 02/25/25 09:19 50 mls/hr ONCE ONE Administration Methylprednisolone Sodium Succinate 125 mg 02/25/25 08:20 02/25/25 08:52 Methylprednisolone Sod Succ 125mg Vial IV 02/25/25 08:21 125 mg ONCE ONE Administration Ondansetron HCl 4 mg 02/25/25 08:20 02/25/25 08:21 Ondansetron 4mg/2ml Vial IV 02/25/25 08:21 4 mg ONCE ONE Administration ORDERS Category Date Time Status CXR --portable [XR chest portable] Stat Exams 02/25/25 08:20 Completed BNP [NT Pro Brain Natriuretic Pep.] Stat Lab 02/25/25 08:23 Completed CBC w/Auto Diff [Complete Blood Count Auto Diff] Stat Lab 02/25/25 08:23 Completed CMP [Comprehensive Metabolic Panel] Stat Lab 02/25/25 08:23 Completed Troponin I Q3H Lab 02/25/25 11:14 Completed Troponin I Q3H Lab 02/25/25 14:30 Ordered Troponin I Stat Lab 02/25/25 08:23 Completed VBG [Venous Blood Gas] Stat RT 02/25/25 08:20 Completed ECG Data Tracing #1: I reviewed this ECG and interpreted as documented below: Sinus tachycardia with no ST elevation or depression. T wave inversions in V2 but are nonspecific. No ST elevation or depression. QTc normal at 357 Medical Decision Narrative: Loreta Santiago is a 74-year-old female with a history of COPD, heart failure, chronic anemia who presents to the Emergency Department via EMS for shortness of breath. Patient was seen in the emergency department 2 days ago for COPD exacerbation and elected to go home after treatment. She is on 4 L nasal cannula at baseline. Per EMS, she had worsening shortness of breath today and was found tripoding on the edge of the bed. She received an albuterol treatment prior to arrival. She is short of breath and speaking in shortened sentences. She is not sure if she would want a breathing tube at this time if needed. On arrival, patient is hypertensive with blood pressure 170/120, heart rate borderline tachycardic at 91 bpm, tachypneic, afebrile, 97% on Ventimask at 50% FiO2. Physical exam, as stated above, revealed an ill appearing female in respiratory distress. She is tripoding. She is speaking in very short sentences. She has significantly diminished breath sounds bilaterally. She denies any chest pain currently. She has no significant peripheral edema. Differential diagnosis includes, but is not limited to: COPD exacerbation, pneumonia, pneumothorax, pleural effusion, ACS, heart failure exacerbation, among others. The most morbid conditions were considered and workup was based on these. Workup in the Emergency Department included: Chest x-ray, EKG, troponin, CBC, CMP, VBG with lactate, BNP. Patient was treated with 125 mg IV Solu-Medrol, 2 g IV magnesium sulfate over 20 minutes and a 9 mL DuoNeb treatment. Patient did not want to be placed on BiPAP at this time. After these interventions, patient was weaned down to 3 L nasal cannula. She overall appears somewhat more comfortable but is still having increased work of breathing and speaking in mildly shortened sentences. Chest x-ray interpreted by me personally. No focal consolidations, no widening of the mediastinum. No increased vascular markings. Grossly unchanged chest x-ray from previous. Laboratory studies show uptrending white blood cell count at 17.6 (however likely secondary to multiple rounds of steroids she has received over the past few days), hemoglobin stably low at 9.4, hematocrit 31.5. Platelets normal at 260. VBG with continued acidosis at 7.18 and pCO2 mildly elevated at 52.2 (previously was 49.3) and normal lactate of 1.3. Bicarbonate is low at 19 and she does not appear to be compensating for her respiratory acidosis. CMP with stable creatinine at 1.2, BUN of 18. Electrolytes grossly unremarkable nonactionable. Glucose normal at 126. BNP is elevated compared to previous at 4930, however this could be related to patient's recent steroids and she does not clinically appear volume overloaded on exam or chest x-ray. Initial troponin of 0.05 and repeat troponin of 0.06, however patient continues to not have any chest pain. Patient continues to have increased work of breathing and does not want BiPAP at this time. Will attempt high flow nasal cannula. This with the patient will need admission for continued treatment of her COPD exacerbation and trending of her troponin. I discussed patient's case with the hospitalist at 1:18 PM who agreed to admit the patient. Will place patient in stepdown unit. Critical Care Critical Care Time Critical Care Time: Yes Attestation: On 02/25/25, the high probability of a clinically significant, sudden or life threatening deterioration of the following system(s) required my full and direct attention, intervention and personal management. The time I documented below is in addition to time spent performing reported procedures but includes the following listed in this critical care notation. Total Time Total Critical Care Time: 35
--- NOTE | 2025-02-25 08:24 | ECG_ITS ---
APPROVED REPORT Exam: Resting ECG HR:100 bpm ECG Measurements Heart Rate 100 AXES RI 120 P 87 QRSd 86 QRS 78 QT 300 T 104 QTc [address] DEVIATION AND MODERATE T-WAVE ABNORMALITY, CONSIDER ANTERIOR ISCHEMIA [-0.1+ mV T-WAVE IN V3/V4] ABNORMAL ECG UNCONFIRMED REPORT Sinus tachycardia. No ST elevation or depression. Electronically signed by : LALIT JOSEPH, 02/25/2025 17:06:46
[2025-02-25 08:32] LABS: VBG PH 7.18 mmol/L (7.31-7.41)
[2025-02-25 08:33] LABS: VBG HCO3 19.0 mmol/L (23-30); VBG PCO2 52.2 mmol/L (35-51); VBG PO2 87.6 mmol/L (28-40)
[2025-02-25 08:34] LABS: Lactate Venous 1.3 mmol/L (0.4-2.0)
[2025-02-25 08:35] LABS: Hematocrit 31.5 % (37.0-47.0); Hemoglobin 9.4 g/dL (12.2-16.2); Immature Granulocytes % 0.5 %; Mean Corpuscular HGB Conc 29.8 g/dL (31.8-35.4); Mean Corpuscular Hemoglobin 25.1 pg (27.0-31.2); Mean Corpuscular Volume 84.2 fl (81-99); Nucleated Red Blood Cells % 0 %; Platelet Count 260 K/mm3 (142-424); Red Blood Count 3.74 M/mm3 (4.20-5.40); Red Cell Distribution Width-SD 70.9 fL; White Blood Count 17.6 K/mm3 (4.8-10.8)
[2025-02-25] MEDS: IPRATROPIUM/ALBUTEROL 3 ML NEB 9 ML IH (08:45)
[2025-02-25] MEDS: MAGNESIUM SULFATE IN WATER 2 GM/50 ML PIGGYBACK IV (08:51)
[2025-02-25] MEDS: METHYLPREDNISOLONE SOD SUCC 125MG VIAL 125 MG IV (08:52)
[2025-02-25 08:58] LABS: Chloride 108 mmol/L (98-107)
[2025-02-25 08:59] LABS: Albumin Level 4.1 g/dl (3.5-5.0); Potassium 4.6 mmoL/L (3.5-5.1); Sodium 139 mmol/L (136-145)
[2025-02-25 09:01] LABS: Alanine Aminotransferase 26 U/L (12-78); Albumin/Globulin Ratio 1.6 (1.1-1.8); Alkaline Phosphatase 104 U/L (38-126); Anion Gap 11.6 mEq/L (5-15); Aspartate Amino Transferase 34 U/L (14-36); Bilirubin,Total 0.6 mg/dl (0.2-1.3); Blood Urea Nitrogen 18 mg/dl (7-17); Carbon Dioxide 24 mmol/L (22.0-30.0); Creatinine Clearance Estimated 41 mL/min (50-200); Creatinine,Serum 1.20 mg/dl (0.52-1.04); Estimated Glomerular Filt Rate 44 ml/min (>60); GFR (African American) 53 ML/MIN (>60); Globulin 2.6 g/dL (1.3-3.2); Total Protein,Serum 6.7 g/dl (6.3-8.2)
[2025-02-25 09:02] LABS: Calcium 8.8 mg/dl (8.4-10.2); Glucose 126 mg/dl (74-100)
[2025-02-25 09:12] LABS: NT Pro Brain Natriuretic Pep. 4930 pg/mL (0-450)
[2025-02-25 09:15] LABS: Troponin I 0.05 ng/ml (0.00-0.034)
[2025-02-25 11:47] LABS: Troponin I 0.06 ng/ml (0.00-0.034)
--- NOTE | 2025-02-25 13:17 | PC.NURSE ---
on the phone with Tita Rodriguez APRN at this time.
--- NOTE | 2025-02-25 13:21 | PC.NURSE ---
millroom supervisor called for bed.
[2025-02-25 13:42] LABS: Adenovirus,PCR Not Detected (NotDetected); Chlamydophila Pneumoniae, PCR Not Detected (NotDetected); Coronavirus 19, PCR Not Detected (NotDetected); Coronovirus HKU1,PCR Not Detected (NotDetected); Influenza A, PCR Not Detected (NotDetected); Influenza AH1, 2009 Not Detected (NotDetected); Influenza AH1, PCR Not Detected (NotDetected); Influenza AH3,PCR Not Detected (NotDetected); Influenza B, PCR Not Detected (NotDetected); Mycoplasma Pneumoniae, PCR Not Detected (NotDetected); Parainfluenza 1, PCR Not Detected (NotDetected); Parainfluenza 2, PCR Not Detected (NotDetected); Parainfluenza 3, PCR Not Detected (NotDetected); Parainfluenza 4, PCR Not Detected (NotDetected)
--- NOTE | 2025-02-25 13:50 | PC.NURSE ---
pt arrived via stretcher per ED staff
[2025-02-25 13:55] LABS: INR 1.05 (0.9-1.1); Prothrombin Time 11.6 seconds (10.1-12.5)
[2025-02-25 14:08] LABS: D-Dimer 1.15 ug/mL (0.0-0.5)
--- NOTE | 2025-02-25 15:01 | P.HP_ITS ---
<Statement entered by Juan Manuel Stringer MD - 02/25/25 15:49> Rounded on patient after nurse practitioner. Personally examined and interviewed patient. Agree with exam findings and care plan as documented. History of Present Illness *Admission Date: 02/25/25 *Reason for visit:: COPD exacerbation *History of present illness: Ms. Santiago is a 74-year-old female who presented to the emergency department today with complaints of increased shortness of breath. She has a primary medical history of COPD with baseline O2, HFpEF, hyperlipidemia, hypertension, chronic anemia. Patient stated that she has been having increased oxygen demand, she is typically wears 3 L nasal cannula but has been wearing 5 L nasal cannula. She has been using nebulizers at home but they have not been helping, she states she is unable to speak in full sentences. She states she has not s moked in 10 years. She states in the last month she has had multiple hospital admissions and emergency room visits due to her shortness of air. [facility] Disclaimer: The information contained in this section may have been updated after the patient was seen, as this information can be updated by other users. Medical History (Updated 02/25/25 @ 15:22 by Tita Rodriguez APRN) COPD mixed type CAP (community acquired pneumonia) Other forms of dyspnea Pulmonary hypertension Hyperlipidemia Hypertension Dyspnea Atypical angina Chronic respiratory failure with hypoxia Encounter for screening for malignant neoplasm of lung Smoking greater than 30 pack years Pulmonary emphysema COPD exacerbation BMI less than 19,adult (HFpEF) heart failure with preserved ejection fraction Tobacco dependence Dependence on supplemental oxygen Coronary artery disease Iron deficiency anemia COPD (chronic obstructive pulmonary disease) Surgical History Hx of esophagogastroduodenoscopy History of colonoscopy History of hysterectomy History of heart artery stent S/P cardiac catheterization Family History Father Alzheimer disease Mother Stroke Social History (Updated 02/20/25 @ 13:48 by EVELYN Paiz) Smoking Status: Former smoker tobacco type: cigarettes packs per day: 1 years smoked: 50 smoking status stop date: 3 years ago alcohol intake: former substance use type: denies use current occupational status: other Travel in the last 8 weeks?: None Have you lived/traveled outside [place] in past 30 days?: No Contact w/someone who lives/traveled outside [place] past 30 days?: No Exposure to someone with infectious disease in past 14 days?: No Do you have a fever (greater than 100.4 F or 38 C)?: No Have you tested positive for COVID-19?: No Exposed to someone with COVID-19 in past 14 days?: No Do you have a sore throat?: No Do you have a cough?: No Do you have any weakness?: No Do you have any diarrhea?: No Are you experiencing any unusual bleeding?: No Do you have any muscle aches/pain?: No Do you have any abdominal pain?: No Are you experiencing loss of taste or smell?: No Other Medical History Have you received the Flu Vaccine for this season: No Have you received the Pneumonia Vaccine: Yes Review of Systems Constitutional Constitutional: Reports fatigue Eyes Eyes: Denies eye discharge, Denies dry eyes, Denies irritation and Denies itchy eyes ENT Ears, Nose, Mouth, and Throat: Denies epistaxis, Denies facial pain, Denies lip swelling and Denies throat swelling *Cardiovascular Cardiovascular: Reports dyspnea and Reports dyspnea on exertion *Respiratory Respiratory: Denies change in phlegm color, Reports chest congestion, Reports cough, Reports dyspnea, Reports dyspnea on exertion, Denies excessive phlegm production and Reports wheezing *Gastrointestinal Gastrointestinal: Denies abdominal pain, Denies belching and Denies cramping *Musculoskeletal Musculoskeletal: Reports back pain, Reports myalgias and Reports other (No small joint swelling or Pain) Psychiatric Psychiatric: Denies homicidal ideation and Denies suicidal ideation Endocrine Endocrine: Reports fatigue and Denies heat intolerance Hematologic/Lymphatic Hematologic/Lymphatic: Denies easy bleeding and Denies lymphadenopathy Allergic/Immunologic Allergic/Immunologic: Denies itchy eyes, Denies lip swelling, Denies throat swelling and Reports wheezing Meds Home Medications and Allergies Home Medications ?Medication ?Instructions ?Recorded ?Confirmed ?Type atorvastatin 40 mg tablet 40 mg PO HS 12/31/23 5 History clopidogrel 75 mg tablet 75 mg PO DAILY 12/31/2302/05 History sertraline 100 mg tablet 200 mg PO DAILY 12/31/23 History cyanocobalamin (vitamin B-12) 1,000 mcg PO DAILY 04/0202/25/25 History 1,000 mcg tablet isosorbide mononitrate 60 mg 60 mg PO DAILY #30 tabs 0 01/07/25 02/25/25 Rx tablet,extended release 24 hr meloxicam 15 mg tablet 15 mg PO DAILY 01/07/2502/05 History montelukast 10 mg tablet 10 mg PO HS 01/07/25 5 History furosemide 40 mg tablet 40 mg PO DAILY 30 days #30 t abs 01/17/25 02/25/25 Rx empagliflozin 10 mg tablet 10 mg PO DAILY 30 days #30 tabs 02/04/25 02/25/25 Rx (Jardiance) irbesartan 75 mg tablet 75 mg PO DAILY 30 days #30 t abs 02/04/25 02/25/25 Rx spironolactone 25 mg tablet 25 mg PO DAILY 30 days #30 tabs 02/04/25 02/25/25 Rx albuterol sulfate 90 mcg/actuation 2 inh inhalation QI DP PRN 02/12/25 02/25/25 History aerosol inhaler shortness of breath or wheez ing polyethylene glycol 3350 17 gram 17 g PO DAILY 30 days #30 ea 02/14/25 02/25/25 Rx oral powder packet (HealthyLax) rivastigmine 4.6 mg/24 hour 4.6 mg topical Q48H 02/25/25 History transdermal patch fluticasone fur. 100 mcg-umeclid 1 inh inhalation LINDSAY Y 90 days #60 02/20/25 02/25/25 Rx 62.5 mcg-vilant 25 mcg ea inhalat.powder (Trelegy Ellipta) ipratropium 0.5 mg-albuterol 3 mg 3 ml inhalation Q6HP PRN shortness 02/21/25 02/25/25 Rx (2.5 mg base)/3 mL nebulization of breath or wheezing 30 days #180 soln mL carvedilol 25 mg tablet 25 mg PO BIDWMEAL 02/25/25 0 02/25/25 History hydrocodone 7.5 mg-acetaminophen 1 tab PO Q8HP PRN Mil d Pain (Scale 02/25/25 02/25/25 History 325 mg tablet Score 1-4) New Prescriptions to Start Prescriptions: Allergies Allergy/AdvReac Type Severity Reaction Status Date / Time No Known Allergies Allergy Verified 02/20/25 13:44 Exam Data for Last 24 hours Vital signs and Labs for Last 24 Hours: Temp Pulse Resp BP Pulse Ox O2 Del Method O2 Flow Rate 98.5 F 87 22 159/92 H 99 Vapotherm 3 02/25/25 14:00 02/25/25 14:00 02/25/25 14:00 02/25/25 14:00 02/25/25 14:00 02/25/25 14:00 02/25/25 13:43 FiO2 32 02/25/25 12:42 Laboratory Results - last 24 hr 02/25/25 08:20: VBG pH 7.18 L, VBG pCO2 52.2 H, VBG pO2 87.6 H, VBG HCO3 19.0 L, VBG Total CO2 20.6 L, VBG O2 Saturation 95.2 H, VBG Base Excess -9.4 L, VBG Lactic Acid 1.3 02/25/25 08:23: WBC 17.6 H D, RBC 3.74 L, Hgb 9.4 L, Hct 31.5 L, MCV 84.2, MCH 25.1 L, MCHC 29.8 L, RDW 23.0 H, Plt Count 260, MPV 9.8, Neut % (Auto) 73.1, Lymph % (Auto) 15.6, [place] % (Auto) 8.1, Eos % (Auto) 2.4, Baso % (Auto) 0.3, Neut # (Auto) 12.9 H, Lymph # (Auto) 2.8, [place] # (Auto) 1.4 H, Eos # (Auto) 0.4, Baso # (Auto) 0.1, Sodium 139, Potassium 4.6, Chloride 108 H, Carbon Dioxide 24, Anion Gap 11.6, BUN 18 H, Creatinine 1.20 H, Estimated Creat Clear 41, Estimated GFR 44 L, Est GFR ( Amer) 53 L, Glucose 126 H, Calcium 8.8, Total Bilirubin 0.6, AST 34 D, ALT 26, Alkaline Phosphatase 104, Troponin I 0.05 H, NT-Pro-B Natriuret Pep 4930 H, Total Protein 6.7, Albumin 4.1, Globulin 2.6, Al bumin/Globulin Ratio 1.6 02/25/25 11:14: Troponin I 0.06 H 02/25/25 13:36: PT 11.6, INR 1.05, D-Dimer 1.15 H I & O for Last 24 hours: Intake & Output 02/22/25 02/23/25 02/24/25 02/25/25 23:59 23:59 23:59 23:59 Weight 55.7 kg Constitutional Constitutional: no acute distress *Routine HEENT Exam Head: Present normocephalic Eye: Present EOMI and PERRL ENT: Present mucous membranes moist *Routine Neck Exam Neck: Present supple; Absent lymphadenopathy *Routine Respiratory Exam Respiratory: Present wheezes and diminished air movement; Absent CTA bilaterally *Routine Cardiovascular Exam Cardiovascular: Present RRR *Routine Abdominal Exam Abdominal: Present soft and normoactive bowel sounds; Absent tenderness *Routine Rectal Exam Rectal:: deferred *Routine Genitalia Exam Genitalia:: deferred *Routine Extremities Exam Extremities: Absent cyanosis, clubbing or edema *Routine Skin Exam Skin: Present warm; Absent rash *Routine Neurological Exam Neurological: Present alert and oriented X3 Assessment and Plan *Assessment and plan (1) Acute exacerbation of chronic obstructive pulmonary disease: Status: Acute Category: Medical Code(s): J44.1 - Chronic obstructive pulmonary disease with (acute) exacerbation (2) Elevated troponin: Status: Acute Category: Medical Code(s): R79.89 - Other specified abnormal findings of blood chemistry (3) Pulmonary emphysema: Status: Acute Qualifiers: Emphysema type: unspecified Qualified Code(s): J43.9 - Emphysema, unspecified Category: Medical Code(s): J43.9 - Emphysema, unspecified (4) Acute on chronic heart failure with preserved ejection fraction (HFpEF): Status: Acute Category: Medical Code(s): I50.33 - Acute on chronic diastolic (congestive) heart failure (5) Hypertension: Status: Acute Qualifiers: Hypertension type: primary hypertension Qualified Code(s): I10 - Essential (primary) hypertension Category: Medical Code(s): I10 - Essential (primary) hypertension (6) Hyperlipidemia: Status: Acute Qualifiers: Hyperlipidemia type: mixed hyperlipidemia Qualified Code(s): E78.2 - Mixed hyperlipidemia Category: Medical Code(s): E78.5 - Hyperlipidemia, unspecified (7) Iron deficiency anemia: Status: Acute Qualifiers: Iron deficiency anemia type: unspecified iron deficiency Qualified Code(s): D50.9 - Iron deficiency anemia, unspecified Category: Medical Code(s): D50.9 - Iron deficiency anemia, unspecified (8) Mood disorder: Status: Acute Category: Medical Code(s): F39 - Unspecified mood [affective] disorder Plan Ms. Santiago is a 74-year-old female with a significant medical history of COPD/emphysema: On baseline 3 L nasal cannula at home, HFpEF, hypertension, hyperlipidemia, iron deficient anemia, mood disorder. She presented to the emergency department today with increasing shortness of breath. She was transported via ambulance to the ER and found to be hypoxic, O2 saturation in 80s. She was placed on CPAP in the ambulance and transition to nasal cannula in the emergency department maintaining O2 saturation above 90%. Patient still felt very short of breath, the ED physician started Vapotherm for comfort. Patient was noted to have leukocytosis, white count 17.6. VBG showed a pH of 7.18, PO2 87.6. Patient's kidney function appeared to be at baseline BUN 18, creatinine 1.2. Troponins elevated 0.05, 0.06 and BNP elevated at 4930. Patient improved in the emergency room after magnesium, steroids, DuoNebs, increased oxygen. ED physician contacted hospital medicine for admission for further monitoring and management of patient COPD exacerbation, I agreed to admit the patient plan as follows: #Acute extubation of COPD #Elevated troponin #Pulmonary emphysema ? Patient has have a progression in her shortness of breath over the past few weeks, worse in the last few days. She was recently hospitalized for increasing shortness of breath, she has been requiring anywhere from 3 to 5 L nasal cannula at home. ? Independently reviewed chest x-ray showing airway constriction on chest x-ray, no pneumonia. Initial VBG pH of 7.18. ? Respiratory panel pending, patient did have recent respiratory panel that was negative. ? Pulmicort twice daily, DuoNebs every 4 hours scheduled, prednisone 40 mg daily ordered. Will hold on antibiotics at this time, patient recently finished course of antibiotics at home. ? Pulmonary consulted. ? Serial troponin slightly elevated initial troponin 0.05, repeat 0.06 will continue to trend. Patient had recent heart cath in early January which was unremarkable. Echo showed EF 55%. Elevated troponin likely due to pulmonary stress. ? Repeat CBC, CMP in the a.m. #HFpEF ? Patient takes Lasix 40 mg and spironolactone 25 mg daily. Will give one-time dose of Lasix 40 mg IV. Patient not notably volume overloaded, BNP 02/12/2025 is 1180, BNP today 4930. ? Will continue to monitor output. #Hypertension ? Will restart spironolactone 25 mg daily, Jardiance 10 mg daily, Ibersartan 75 mg daily, clopidogrel 75 mg, Coreg 25 mg twice daily #Hyperlipidemia ? Will restart atorvastatin 40 mg at bedtime. #Iron deficient anemia ? Patient has known iron deficient anemia, will continue to monitor. Hemoglobin stable at this time 9.4. #Mood disorder ? Restart patient's home medicine sertraline 200 mg daily. DNR Ambulate as tolerated Pulmonary consulted Cardiac diet IPC's?VTE
--- NOTE | 2025-02-25 15:05 | HMH.PHAINT1 ---
Pharmacy Intervention Comments: HOME MEDICATION LIST VERIFIED USING LIST FROM OUTPATIENT PHARMACY AND MOST RECENT DISCHARGE FROM THIS FACILITY
[2025-02-25] MEDS: FUROSEMIDE 40MG/4ML VIAL 40 MG IV (15:36)
[2025-02-25 15:56] LABS: Troponin I 0.05 ng/ml (0.00-0.034)
--- NOTE | 2025-02-25 17:50 | PC.NURSE ---
report given to LOKESH Guerrero
[2025-02-25] MEDS: CARVEDILOL 25MG TABLET 25 MG PO (18:15)
[2025-02-25] MEDS: BUDESONIDE 0.5MG/2ML NEB 0.5 MG IH (18:31)
[2025-02-25] MEDS: IPRATROPIUM/ALBUTEROL 3 ML NEB IH ×2 (18:31→22:30)
[2025-02-25] MEDS: APAP/HYDROCODONE 325MG/7.5MG TAB 1 TAB PO (20:45)
[2025-02-25] MEDS: MONTELUKAST SODIUM 10MG TAB 10 MG PO (20:45)
[2025-02-25] MEDS: ATORVASTATIN 40MG TABLET 40 MG PO (20:45)
[2025-02-26] VITALS (12 sets, daily range): BP systolic 90–125; BP diastolic 54–65; PULSE 65–88; RESP 18–22; TEMP 36.4–36.9; O2SAT 90–99; BMI 23.2
--- NOTE | 2025-02-26 03:37 | PC.NURSE ---
Pt. was admitted 02/25/25 for COPD exacerbation. Pt. has had several admissions over the last few months with COPD exacerbations. Pt. is alert and orientated x 4. Pt. on oxygen 2-3 liters . She was as high as 5 liters at home before coming into the ED. Pt.is on the monitor NSR, pt. has a purewick in place. Pt. has slept off and on this shift. states that she has a hard time sleeping in the hospital. Pt. had c/o low chronic back pain. Medicated per OCT. Pt. refusing SCUD's this shift. states that she will wear them in the am today. Personal items and call clark in reach.
[2025-02-26] MEDS: BUDESONIDE 0.5MG/2ML NEB 0.5 MG IH ×2 (06:00→18:36)
[2025-02-26] MEDS: IPRATROPIUM/ALBUTEROL 3 ML NEB IH ×3 (06:05→18:36)
--- NOTE | 2025-02-26 06:09 | PC.NURSE ---
patient has not voided, purewick checked not leaking, brief dry and patient states not feeling like she needs to void. Nurse made aware
[2025-02-26 06:26] LABS: Hematocrit 27.3 % (37.0-47.0); Immature Granulocytes % 0.4 %; Mean Corpuscular HGB Conc 29.3 g/dL (31.8-35.4); Mean Corpuscular Hemoglobin 24.2 pg (27.0-31.2); Mean Corpuscular Volume 82.7 fl (81-99); Nucleated Red Blood Cells % 0 %; Platelet Count 210 K/mm3 (142-424); Red Blood Count 3.30 M/mm3 (4.20-5.40); Red Cell Distribution Width-SD 69.4 fL; White Blood Count 10.6 K/mm3 (4.8-10.8)
[2025-02-26 06:43] LABS: Hemoglobin 8.0 g/dL (12.2-16.2)
[2025-02-26 06:58] LABS: Alanine Aminotransferase 18 U/L (12-78); Albumin Level 3.3 g/dl (3.5-5.0); Albumin/Globulin Ratio 1.4 (1.1-1.8); Alkaline Phosphatase 86 U/L (38-126); Anion Gap 6.9 mEq/L (5-15); Aspartate Amino Transferase 23 U/L (14-36); Bilirubin,Total 0.5 mg/dl (0.2-1.3); Blood Urea Nitrogen 19 mg/dl (7-17); Calcium 8.6 mg/dl (8.4-10.2); Carbon Dioxide 30 mmol/L (22.0-30.0); Chloride 107 mmol/L (98-107); Creatinine Clearance Estimated 33 mL/min (50-200); Creatinine,Serum 1.30 mg/dl (0.52-1.04); Estimated Glomerular Filt Rate 40 ml/min (>60); GFR (African American) 48 ML/MIN (>60); Globulin 2.3 g/dL (1.3-3.2); Glucose 102 mg/dl (74-100); Magnesium 1.8 mg/dl (1.6-2.3); Potassium 3.9 mmoL/L (3.5-5.1); Sodium 140 mmol/L (136-145); Total Protein,Serum 5.6 g/dl (6.3-8.2)
[2025-02-26] MEDS: CLOPIDOGREL 75MG TAB 75 MG PO (08:23)
[2025-02-26] MEDS: CARVEDILOL 25MG TABLET 25 MG PO ×2 (08:23→18:52)
[2025-02-26] MEDS: SPIRONOLACTONE 25MG TABLET 25 MG PO (08:24)
[2025-02-26] MEDS: IRBESARTAN 75MG TABLET 75 MG PO (08:24)
[2025-02-26] MEDS: SERTRALINE 100MG TABLET 200 MG PO (08:24)
[2025-02-26] MEDS: EMPAGLIFLOZIN 10MG TABLET 10 MG PO (08:24)
[2025-02-26] MEDS: POLYETHYLENE GLYCOL 3350 17 GM PACKET PO (08:24)
[2025-02-26] MEDS: FUROSEMIDE 40 MG TABLET PO (08:24)
[2025-02-26] MEDS: APAP/HYDROCODONE 325MG/7.5MG TAB 1 TAB PO ×3 (08:39→21:05)
--- NOTE | 2025-02-26 10:00 | EXP.PULM.CON ---
History of Present Illness History of present illness: Ms. Santiago is a 74-year-old male greater than [id number] smoking history history of COPD chronic hypoxic hypercarbic respiratory failure recent multiple hospital admissions for recurrent hypercarbic respiratory failure presented to the ER with worsening respiratory distress and pulmonary was called for further evaluation management. Patient predominant complaint today including worsening respiratory distress and worsening lower extremity swelling. [facility] Disclaimer: The information contained in this section may have been updated after the patient was seen, as this information can be updated by other users. Medical History COPD mixed type CAP (community acquired pneumonia) Other forms of dyspnea Pulmonary hypertension Hyperlipidemia Hypertension Dyspnea Atypical angina Chronic respiratory failure with hypoxia Encounter for screening for malignant neoplasm of lung Smoking greater than 30 pack years Pulmonary emphysema COPD exacerbation BMI less than 19,adult (HFpEF) heart failure with preserved ejection fraction Tobacco dependence Dependence on supplemental oxygen Coronary artery disease Iron deficiency anemia COPD (chronic obstructive pulmonary disease) Surgical History Hx of esophagogastroduodenoscopy History of colonoscopy History of hysterectomy History of heart artery stent S/P cardiac catheterization Family History Father Alzheimer disease Mother Stroke Social History Smoking Status: Former smoker tobacco type: cigarettes packs per day: 1 years smoked: 50 smoking status stop date: 3 years ago alcohol intake: former substance use type: denies use current occupational status: other Travel in the last 8 weeks?: None Have you lived/traveled outside [place] in past 30 days?: No Contact w/someone who lives/traveled outside [place] past 30 days?: No Exposure to someone with infectious disease in past 14 days?: No Do you have a fever (greater than 100.4 F or 38 C)?: No Have you tested positive for COVID-19?: No Exposed to someone with COVID-19 in past 14 days?: No Do you have a sore throat?: No Do you have a cough?: No Do you have any weakness?: No Do you have any diarrhea?: No Are you experiencing any unusual bleeding?: No Do you have any muscle aches/pain?: No Do you have any abdominal pain?: No Are you experiencing loss of taste or smell?: No Review of Systems Constitutional Constitutional: Reports fatigue Eyes Eyes: Denies eye discharge, Denies dry eyes, Denies irritation and Denies itchy eyes ENT Ears, Nose, Mouth, and Throat: Denies epistaxis, Denies facial pain, Denies lip swelling and Denies throat swelling *Cardiovascular Cardiovascular: Reports dyspnea, Reports dyspnea on exertion and Reports leg edema *Respiratory Respiratory: Denies change in phlegm color, Reports chest congestion, Reports cough, Reports dyspnea, Reports dyspnea on exertion, Denies excessive phlegm production, Denies hemoptysis, Denies pain on inspiration, Denies pain with cough and Reports wheezing *Gastrointestinal Gastrointestinal: Denies abdominal pain, Denies belching and Denies cramping *Musculoskeletal Musculoskeletal: Reports back pain, Reports myalgias and Reports other (No small joint swelling or Pain) Psychiatric Psychiatric: Denies homicidal ideation and Denies suicidal ideation Endocrine Endocrine: Reports fatigue and Denies heat intolerance Hematologic/Lymphatic Hematologic/Lymphatic: Denies easy bleeding and Denies lymphadenopathy Allergic/Immunologic Allergic/Immunologic: Denies itchy eyes, Denies lip swelling, Denies throat swelling and Reports wheezing Pulmonology Exam Inpatient Vital signs and Labs for Last 24 Hours: Temp Pulse Resp BP Pulse Ox O2 Del Method O2 Flow Rate 97.6 F 69 18 121/54 L 99 Nasal Cannula 2 02/26/25 08:00 02/26/25 08:00 02/26/25 08:00 02/26/25 08:00 02/26/25 08:31 02/26/25 08:31 02/26/25 08:31 FiO2 32 02/25/25 12:42 Laboratory Results - last 24 hr 02/25/25 11:14: Troponin I 0.06 H 02/25/25 13:36: PT 11.6, INR 1.05, D-Dimer 1.15 H 02/25/25 13:37: Chlamy pneumoniae PCR Not detected, Adenovirus (PCR) Not detected, B. pertussis DNA (PCR) Not detected, Coronavirus OC43 (PCR) Not detected, Coronavirus HKU1 (PCR) Not detected, Coronavirus 229E (PCR) Not detected, SARS-CoV-2 (PCR) Not detected, Coronavirus NL63 (PCR) Not detected, Human Metapneumovir PCR Not detected, Influenza A (H1) PCR Not detected, Influ A (H1N1/09) PCR Not detected, Influenza A (H3) PCR Not detected, Influenza Type A (PCR) Not detected, Influenza Type B (PCR) Not detected, M. pneumoniae (PCR) Not detected, Parainfluenza 1 (PCR) Not detected, Parainfluenza 2 (PCR) Not detected, Parainfluenza 3 (PCR) Not detected, Parainfluenza 4 (PCR) Not detected, RSV (PCR) Not detected, Entero/Rhino (PCR) Not detected 02/25/25 14:53: Troponin I 0.05 H 02/26/25 05:30: WBC 10.6 D, RBC 3.30 L, Hgb 8.0 L D, Hct 27.3 L, MCV 82.7, MCH 24.2 L, MCHC 29.3 L, RDW 22.7 H, Plt Count 210, MPV 10.8 H, Neut % (Auto) 76.8, Lymph % (Auto) 11.9, [place] % (Auto) 10.9 H, Eos % (Auto) 0.0 L, Baso % (Auto) 0.0 L, Neut # (Auto) 8.1 H, Lymph # (Auto) 1.3, [place] # (Auto) 1.2 H, Eos # (Auto) 0.0, Baso # (Auto) 0.0, Sodium 140, Potassium 3.9, Chloride 107, Carbon Dioxide 30, Anion Gap 6.9, BUN 19 H, Creatinine 1.30 H, Estimated Creat Clear 33, Estimated GFR 40 L, Est GFR ( Amer) 48 L, Glucose 102 H, Calcium 8.6, Magnesium 1.8, Total Bilirubin 0.5, AST 23 D, ALT 18 D, Alkaline Phosphatase 86, Total Protein 5.6 L, Albumin 3.3 L D, Globulin 2.3, Albumin/Globulin Ratio 1.4 I & O for Labs for Last 24 Hours: Intake & Output 02/23/25 02/24/25 02/25/25 02/26/25 23:59 23:59 23:59 23:59 Intake Total 120 / 120 Output Total 1300 / 1300 Balance -1300 / -1300 120 / 120 Weight 122 lb 12.76 oz 123 lb Constitutional: Present mild distress Head: Present normocephalic and atraumatic ENT: Present normal exam, normal oropharynx and mucous membranes moist Neck: Present normal inspection and full ROM Respiratory: Present prolonged expiratory phase and able to speak in complete sentences; Absent respiratory distress, wheezes or diminished air movement Cardiac: Present S1/S2, Tachycardia and radial pulses present GI: Present soft and distention; Absent tenderness or guarding Rectal (female): Present deferred (female): Present deferred Skin: Present intact; Absent cyanosis or jaundice Neuro: Present alert, awake and oriented x 3 Extremities: Present normal inspection; Absent clubbing or cyanosis Psychiatric: Present normal affect and cooperative Meds Home Medications and Allergies Home Medications ?Medication ?Instructions ?Recorded ?Confirmed ?Type atorvastatin 40 mg tablet 40 mg PO HS 12/31/23 02/25/25 History clopidogrel 75 mg tablet 75 mg PO DAILY 12/31/23 02/25/25 History sertraline 100 mg tablet 200 mg PO DAILY 12/31/23 02/25/25 History cyanocobalamin (vitamin B-12) 1,000 mcg PO DAILY 04/02/24 02/25/25 History 1,000 mcg tablet isosorbide mononitrate 60 mg 60 mg PO DAILY #30 tabs 01/07/25 02/25/25 Rx tablet,extended release 24 hr meloxicam 15 mg tablet 15 mg PO DAILY 01/07/25 02/25/25 History montelukast 10 mg tablet 10 mg PO HS 01/07/25 02/25/25 History furosemide 40 mg tablet 40 mg PO DAILY 30 days #30 tabs 01/17/25 02/25/25 Rx empagliflozin 10 mg tablet 10 mg PO DAILY 30 days #30 tabs 02/04/25 02/25/25 Rx (Jardiance) irbesartan 75 mg tablet 75 mg PO DAILY 30 days #30 tabs 02/04/25 02/25/25 Rx spironolactone 25 mg tablet 25 mg PO DAILY 30 days #30 tabs 02/04/25 02/25/25 Rx albuterol sulfate 90 mcg/actuation 2 inh inhalation QIDP PRN 02/12/25 02/25/25 History aerosol inhaler shortness of breath or wheezing polyethylene glycol 3350 17 gram 17 g PO DAILY 30 days #30 ea 02/14/25 02/25/25 Rx oral powder packet (HealthyLax) rivastigmine 4.6 mg/24 hour 4.6 mg topical Q48H 02/14/25 02/25/25 History transdermal patch fluticasone fur. 100 mcg-umeclid 1 inh inhalation DAILY 90 days #60 02/20/25 02/25/25 Rx 62.5 mcg-vilant 25 mcg ea inhalat.powder (Trelegy Ellipta) ipratropium 0.5 mg-albuterol 3 mg 3 ml inhalation Q6HP PRN shortness 02/21/25 02/25/25 Rx (2.5 mg base)/3 mL nebulization of breath or wheezing 30 days #180 soln mL carvedilol 25 mg tablet 25 mg PO BIDWMEAL 02/25/25 02/25/25 History hydrocodone 7.5 mg-acetaminophen 1 tab PO Q8HP PRN Mild Pain (Scale 02/25/25 02/25/25 History 325 mg tablet Score 1-4) New Prescriptions to Start Prescriptions: Allergies Allergy/AdvReac Type Severity Reaction Status Date / Time No Known Allergies Allergy Verified 02/20/25 13:44 Results Laboratory Findings 02/26/25 05:30 02/26/25 05:30 PT/INR, D-dimer PT 11.6 seconds (10.1-12.5) 02/25/25 13:36 INR 1.05 (0.9-1.1) 02/25/25 13:36 D-Dimer 1.15 ug/mL (0.0-0.5) H 02/25/25 13:36 Abnormal lab findings: Abnormal Labs 02/25/25 02/25/25 02/25/25 08:20 08:23 11:14 WBC 17.6 H D RBC 3.74 L Hgb 9.4 L Hct 31.5 L MCH 25.1 L MCHC 29.8 L RDW 23.0 H MPV [place] % (Auto) Eos % (Auto) Baso % (Auto) Neut # (Auto) 12.9 H [place] # (Auto) 1.4 H D-Dimer VBG pH 7.18 L VBG pCO2 52.2 H VBG pO2 87.6 H VBG HCO3 19.0 L VBG Total CO2 20.6 L VBG O2 Saturation 95.2 H VBG Base Excess -9.4 L Chloride 108 H BUN 18 H Creatinine 1.20 H Estimated GFR 44 L Est GFR ( Amer) 53 L Glucose 126 H Troponin I 0.05 H 0.06 H NT-Pro-B Natriuret Pep 4930 H Total Protein Albumin 02/25/25 02/25/25 02/26/25 13:36 14:53 05:30 WBC RBC 3.30 L Hgb 8.0 L D Hct 27.3 L MCH 24.2 L MCHC 29.3 L RDW 22.7 H MPV 10.8 H [place] % (Auto) 10.9 H Eos % (Auto) 0.0 L Baso % (Auto) 0.0 L Neut # (Auto) 8.1 H [place] # (Auto) 1.2 H D-Dimer 1.15 H VBG pH VBG pCO2 VBG pO2 VBG HCO3 VBG Total CO2 VBG O2 Saturation VBG Base Excess Chloride BUN 19 H Creatinine 1.30 H Estimated GFR 40 L Est GFR ( Amer) 48 L Glucose 102 H Troponin I 0.05 H NT-Pro-B Natriuret Pep Total Protein 5.6 L Albumin 3.3 L D Assessment and Plan *Assessment and plan (1) COPD mixed type: Status: Acute Category: Medical Code(s): J44.9 - Chronic obstructive pulmonary disease, unspecified (2) Acute on chronic respiratory failure with hypoxia and hypercapnia: Status: Acute Category: Medical Code(s): J96.21 - Acute and chronic respiratory failure with hypoxia; J96.22 - Acute and chronic respiratory failure with hypercapnia Plan Ms. Santiago is a 74-year-old male greater than [id number] smoking history history of COPD chronic hypoxic hypercarbic respiratory failure recent multiple hospital admissions for recurrent hypercarbic respiratory failure presented to the ER with worsening respiratory distress and pulmonary was called for further evaluation management. Patient predominant complaint today including worsening respiratory distress and worsening lower extremity swelling. Patient also presented to the ER on 02/23/2025 with worsening respiratory distress discharged home on 20 mg of prednisone daily for presumed COPD exacerbation. Afebrile. Hemodynamically stable. No significant evidence of leukocytosis. Blood gas upon admission, mixed metabolic and respiratory acidosis on venous blood gas. Chest x-ray upon admission bilateral interstitial changes / edema. Receiving DuoNebs along with Pulmicort, steroids and home diuretic regimen Repeat blood gas from this morning on room air did not show any evidence of hypercarbic respiratory failure. On 2 L saturating 100% on examination. No significant wheezing noted on auscultation. Patient admits worsening respiratory distress as the reason for her presentation to the ER. Patient also is concerning for her severe anxiety contributing to her prominent significant symptom burden at this point of time. Patient having multiple admissions for hypercarbic respiratory failure which is concerning at this point of time however her repeat ABG samples as an outpatient basis including one from this morning did not show any evidence of hypercarbia. She does have anxiety issues thats contributing to her respiratory symptom burden. Patient chest x-ray from this admission also concerning for volume overload. Will defer management and volume optimization to primary team and cardiology at this point of time. Despite her recurrent hypercarbic respiratory failure, and significant perceived symptom burden at baseline, given other possible etiologies I think from pulmonary standpoint for her COPD, it would be a reasonable clinical approach to evaluate/manage other possible core morbidities contributing to her current symptom burden prior to proceeding with hospice care. She never had any walk test / PFTs performed so far to evaluate her respiratory symptom burden. Plan: DuoNebs every 6 hours along with Pulmicort every 12 scheduled Discontinue prednisone Recommend ENT evaluation as an outpatient basis for possible vocal cord dysfunction given her extreme variations in her respiratory symptoms and oxygen requirements Volume optimization as per primary team and cardiology Management of [place] as per primary team Oxygen supplementation only as needed to maintain O2 saturation goal of 90% to 95%
[2025-02-26 10:19] LABS: ABG HCO3 24.6 mmhg (22.0-26.0); ABG PCO2 42.9 mmhg (35.0-45.0); ABG PH 7.38 mmol/L (7.35-7.45); ABG PO2 52.9 mmhg (80-100); ABG TCO2 25.9 mmhg (23-27)
[2025-02-26 10:20] LABS: Source Right Radial
[2025-02-26] MEDS: IRON SUCROSE COMPLEX 200 MG in 0.9 % SODIUM CHLORIDE 100 ML 220 MG IV (10:26)
[2025-02-26 10:34] LABS: Vitamin B12 953 pg/mL (239-931)
--- NOTE | 2025-02-26 12:31 | P.PN_ITS ---
Subjective *Date: 02/26/25 *Time: 13:09 Interval history: Patient sitting up in bed, daughter at bedside. Patient turned down to room air by pulmonology, maintaining oxygen saturation of 93%. Patient still short of breath and unable to speak in complete sentences. She states that she thinks some of her shortness of breath is related to her anxiety. After much discussion with her and the daughter she thinks she may have not refilled her anxiety medication, Wellbutrin 150 mg twice daily. The bottle at bedside looks like it has not been filled since November 2024. Discussed with the patient this could very likely be related to her feelings of distress and shortness of air. Discussed with patient the need for O2 when oxygen saturation is below 90%. Patient states she understands. Medical Exam Vital signs and Labs for Last 24 Hours: Vital Signs Temp Pulse Pulse Resp BP BP Pulse Ox 02/26/25 11:36 97.5 F L 65 19 90/56 L 90 L 02/26/25 11:20 02/26/25 10:02 92 L 02/26/25 10:02 87 02/26/25 10:02 88 02/26/25 09:00 02/26/25 08:31 99 02/26/25 08:00 67 02/26/25 08:00 97.6 F 69 18 121/54 L 99 02/26/25 07:00 02/26/25 06:05 69 02/26/25 06:05 73 02/26/25 06:05 98 02/26/25 05:00 02/26/25 04:00 65 02/26/25 04:00 98.3 F 68 20 111/56 L 98 02/26/25 03:00 02/26/25 01:00 02/26/25 00:00 80 02/26/25 00:00 98.5 F 76 22 109/65 L 98 02/25/25 23:00 02/25/25 22:36 02/25/25 22:35 93 H 02/25/25 22:34 90 02/25/25 21:00 02/25/25 20:00 71 24 96 02/25/25 20:00 65 02/25/25 19:45 97.8 F 71 24 112/55 L 96 02/25/25 18:33 02/25/25 18:30 93 H 02/25/25 18:10 89 02/25/25 17:00 80 02/25/25 17:00 02/25/25 16:00 85 22 164/82 H 96 02/25/25 15:00 02/25/25 14:00 85 22 96 02/25/25 14:00 98.5 F 87 22 159/92 H 99 02/25/25 13:43 98.6 F 87 20 166/83 H 02/25/25 13:00 89 22 175/79 H 97 02/25/25 12:42 98 O2 Del Method O2 Flow Rate FiO2 02/26/25 11:36 Room Air 02/26/25 11:20 Nasal Cannula 2 02/26/25 10:02 Room Air 02/26/25 10:02 02/26/25 10:02 02/26/25 09:00 Nasal Cannula 2 02/26/25 08:31 Nasal Cannula 2 02/26/25 08:00 02/26/25 08:00 Nasal Cannula 2 02/26/25 07:00 Nasal Cannula 2 02/26/25 06:05 02/26/25 06:05 02/26/25 06:05 Nasal Cannula 2 02/26/25 05:00 Nasal Cannula 2 02/26/25 04:00 02/26/25 04:00 Nasal Cannula 3 02/26/25 03:00 Nasal Cannula 2 02/26/25 01:00 Nasal Cannula 02/26/25 00:00 02/26/25 00:00 Nasal Cannula 2 02/25/25 23:00 Nasal Cannula 2 02/25/25 22:36 Nasal Cannula 2 02/25/25 22:35 02/25/25 22:34 02/25/25 21:00 Nasal Cannula 2 02/25/25 20:00 Nasal Cannula 2 02/25/25 20:00 02/25/25 19:45 Nasal Cannula 2 02/25/25 18:33 Nasal Cannula 3 02/25/25 18:30 02/25/25 18:10 02/25/25 17:00 02/25/25 17:00 Nasal Cannula 3 02/25/25 16:00 Nasal Cannula 3 02/25/25 15:00 Nasal Cannula 3 02/25/25 14:00 Nasal Cannula 3 02/25/25 14:00 Vapotherm 02/25/25 13:43 Nasal Cannula 3 02/25/25 13:00 Nasal Cannula 3 02/25/25 12:42 Vapotherm 25 32 Intake and Output 02/25/25 02/26/25 02/26/25 23:59 07:59 15:59 Intake Total 0 / 240 240 / 240 Output Total 1300 / 1300 0 / 0 Balance -1300 / -1300 0 / 240 240 / 240 Intake: Intake, Oral Amount 0 / 240 240 / 240 Intake, Oral Supplement Amount 0 / 0 Output: Output, Urine Amount 1300 / 1300 0 / 0 Other: Number of Unmeasured Voids 1 0 Number of Bowel Movements 1 Weight 55.792 kg Patient Weight 02/26/25 23:59 Weight 55.792 kg Laboratory Results - last 24 hr 02/25/25 13:36: PT 11.6, INR 1.05, D-Dimer 1.15 H 02/25/25 13:37: Chlamy pneumoniae PCR Not detected, Adenovirus (PCR) Not detected, B. pertussis DNA (PCR) Not detected, Coronavirus OC43 (PCR) Not detected, Coronavirus HKU1 (PCR) Not detected, Coronavirus 229E (PCR) Not det ected, SARS-CoV-2 (PCR) Not detected, Coronavirus NL63 (PCR) Not detected, Human Metapneumovir PCR Not detected, Influenza A (H1) PCR Not detected, Influ A (H1N1/09) PCR Not detected, Influenza A (H3) PCR Not detected, Influenza Type A (PCR) Not detected, Influenza Type B (PCR) Not detected, M. pneumoniae (PCR) Not detected, Parainfluenza 1 (PCR) Not detected, Parainfluenza 2 (PCR) Not detected, Parainfluenza 3 (PCR) Not detected, Parainfluenza 4 (PCR) Not detected, RSV (PCR) Not detected, Entero/Rhino (PCR) Not detected 02/25/25 14:53: Troponin I 0.05 H 02/26/25 05:30: WBC 10.6 D, RBC 3.30 L, Hgb 8.0 L D, Hct 27.3 L, MCV 82.7, MCH 24.2 L, MCHC 29.3 L, RDW 22.7 H, Plt Count 210, MPV 10.8 H, Neut % (Auto) 76.8, Lymph % (Auto) 11.9, Lucas % (Auto) 10.9 H, Eos % (Auto) 0.0 L, Baso % (Auto) 0.0 L, Neut # (Auto) 8.1 H, Lymph # (Auto) 1.3, Lucas # (Auto) 1.2 H, Eos # (Auto) 0.0, Baso # (Auto) 0.0, Sodium 140, Potassium 3.9, Chloride 107, Carbon Dioxide 30, Anion Gap 6.9, BUN 19 H, Creatinine 1.30 H, Estimated Creat Clear 33, Estimated GFR 40 L, Est GFR ( Amer) 48 L, Glucose 102 H, Calcium 8.6, Magnesium 1.8, Total Bilirubin 0.5, AST 23 D, ALT 18 D, Alkaline Phosphatase 86, Total Protein 5.6 L, Albumin 3.3 L D, Globulin 2.3, Albumin/Globulin Ratio 1.4, Vitamin B12 953 H 02/26/25 09:59: Specimen Source Right radial, O2 % Room air, ABG pH 7.38, ABG pCO2 42.9, ABG pO2 52.9 L, ABG HCO3 24.6, ABG Total CO2 25.9, ABG O2 Saturation 87 L*, ABG Base Excess -0.6, Arturo Test Acceptable I & O for Labs for Last 24 Hours: Intake & Output 02/23/25 02/24/25 02/25/25 02/26/25 23:59 23:59 23:59 23:59 Intake Total 240 / 240 Output Total 1300 / 1300 0 / 0 Balance -1300 / -1300 240 / 240 Weight 55.7 kg 55.792 kg Constitutional: Present mild distress, chronically ill appearing and cooperative Head: Present atraumatic ENT: Present normal exam Neck: Present normal inspection Respiratory: Present decreased breath sounds, wheezes and symmetric chest movement; Absent crackles or able to speak in complete sentences Cardiac: Present Reg Rate and Rhythm GI: Present soft and normal bowel sounds; Absent distention or tenderness Rectal (female): Present deferred (female): Present deferred Extremities: Present normal inspection and edema (Bilateral lower extremity) Skin: Present intact Comment:: Scattered bruising Neuro: Present Weakness, alert, awake and oriented x 3 Assessment and Plan *Assessment and plan (1) Acute exacerbation of chronic obstructive pulmonary disease: Status: Acute Category: Medical Code(s): J44.1 - Chronic obstructive pulmonary disease with (acute) exacerbation (2) Elevated troponin: Status: Acute Category: Medical Code(s): R79.89 - Other specified abnormal findings of blood chemistry (3) Pulmonary emphysema: Status: Acute Qualifiers: Emphysema type: unspecified Qualified Code(s): J43.9 - Emphysema, unspecified Category: Medical Code(s): J43.9 - Emphysema, unspecified (4) Acute on chronic heart failure with preserved ejection fraction (HFpEF): Status: Acute Category: Medical Code(s): I50.33 - Acute on chronic diastolic (congestive) heart failure (5) Hypertension: Status: Acute Qualifiers: Hypertension type: primary hypertension Qualified Code(s): I10 - Essential (primary) hypertension Category: Medical Code(s): I10 - Essential (primary) hypertension (6) Hyperlipidemia: Status: Acute Qualifiers: Hyperlipidemia type: mixed hyperlipidemia Qualified Code(s): E78.2 - Mixed hyperlipidemia Category: Medical Code(s): E78.5 - Hyperlipidemia, unspecified (7) Iron deficiency anemia: Status: Acute Qualifiers: Iron deficiency anemia type: unspecified iron deficiency Qualified Code(s): D50.9 - Iron deficiency anemia, unspecified Category: Medical Code(s): D50.9 - Iron deficiency anemia, unspecified (8) Mood disorder: Status: Acute Category: Medical Code(s): F39 - Unspecified mood [affective] disorder Plan Ms. Santiago is a 74-year-old female with a significant medical history of COPD/e mphysema: On baseline 3 L nasal cannula at home, HFpEF, hypertension, hyperlipidemia, iron deficient anemia, mood disorder. She presented to the emergency department today with increasing shortness of breath. She was transported via ambulance to the ER and found to be hypoxic, O2 saturation in 80s. She was placed on CPAP in the ambulance and transition to nasal cannula in the emergency department maintaining O2 saturation above 90%. Patient still felt very short of breath, the ED physician started Vapotherm for comfort. Patient was noted to have leukocytosis, white count 17.6. VBG showed a pH of 7.18, PO2 87.6. Patient's kidney function appeared to be at baseline BUN 18, creatinine 1.2. Troponins elevated 0.05, 0.06 and BNP elevated at 4930. Patient improved in the emergency room after magnesium, steroids, DuoNebs, increased oxygen. ED physician contacted hospital medicine for admission for further monitoring and management of patient COPD exacerbation, I agreed to admit the patient plan as follows Patient currently receiving home health, PT/OT services at home on a weekly basis. Patient has been unable to utilize the services due to frequent admissions recently. Had a goals of care discussion with patient and daughter yesterday, they stated that the ER physician told them that she was in end-stage of COPD. Patient stated I am just feeling done, I cannot keep doing this . Discussed with patient and daughter about their goals of care, patient states she just would like to feel better and she feels that the shortness of breath and anxiety are taking over. Did discuss with them the option of having hospice or social work come talk with them, at this time the patient feels that she can get her anxiety under control and her breathing better, she would feel much better and would not be interested in hospice or other palliative options. I discussed with patient that I to agree that optimizing medical management is an appropriate choice and we will work on medical management as best as possible during her admission. #Acute extubation of COPD #Elevated troponin #Pulmonary emphysema ? Patient has have a progression in her shortness of breath over the past few weeks, worse in the last few days. She was recently hospitalized for increasing shortness of breath, she has been requiring anywhere from 3 to 5 L nasal cannula at home. Patient was originally admitted on Vapotherm, quickly weaned to her baseline 3 L. Able to wean to room air this morning. Patient maintaining O2 saturation above 90%. Patient still appears very short of breath and is unable to speak in complete sentences. ? Independently reviewed chest x-ray showing airway constriction on chest x-ray, no pneumonia. ABG this morning shows pH of 7.38. ? Respiratory negative. ? Pulmicort twice daily, DuoNebs every 4 hours scheduled. Prednisone discontinued per pulmonology. will hold on antibiotics at this time, patient recently finished course of antibiotics at home. ? Pulmonary consulted. Pulmonology recommendation of ENT evaluation on outpatient basis, walk test, PFTs. ? Serial troponin slightly elevated initial troponin 0.05, repeat 0.06, repeat 0.05. Patient had recent heart cath in early January which was unremarkable. Echo showed EF 55%. Elevated troponin likely due to pulmonary stress. Patient denies any chest pain. ? Repeat CBC, CMP in the a.m #HFpEF ? Patient takes Lasix 40 mg and spironolactone 25 mg daily. Will give one-time dose of Lasix 40 mg IV. Patient not notably volume overloaded, BNP 02/12/2025 is 1180, BNP today 4930. ? Will continue to monitor output. Urinary output yesterday 1.3 L, continue to monitor. Will give another one-time dose of Lasix 40 mg IV. #Hypertension ? Will restart spironolactone 25 mg daily, Jardiance 10 mg daily, Ibersartan 75 mg daily, clopidogrel 75 mg, Coreg 25 mg twice daily #Hyperlipidemia ? Will restart atorvastatin 40 mg at bedtime. #Iron deficient anemia ? Patient has known iron deficient anemia, will continue to monitor. ?Patient hemoglobin this morning 8.0, patient receives Venofer infusions weekly, she has not been able to receive her infusions recently due to hospitalizations. Will give one-time dose of Venofer today. Made appointment with outpatient infusion for infusion next week, 03/05/2025 at 11 AM. #Mood disorder ? Restart patient's home medicine sertraline 200 mg daily. ?After long discussion with patient about her mood disorder and anxiety she states that she feels that a lot of her shortness of breath is attributed to her anxiety, she feels short of breath and therefore feels more anxious and it is a continuous cycle. Patient's daughter brought in home medications, after looking through the medications it appears that she was taking Wellbutrin 150 mg twice daily, she states that she has taken this medication for very long time, the bottle was empty and states it was last refilled on 11/13/24. Patient states she must of forgot to get it refilled or the pharmacy did not fill it. Discussed with patient this may be a possibility for her worsening anxiety. Will restart her Wellbutrin at 75 mg twice daily. DNR/DNI Ambulate as tolerated Pulmonary consulted PT/OT consult Cardiac diet IPC's?VTE
[2025-02-26 12:49] LABS: Iron 33 ug/dL (37-170)
[2025-02-26 12:59] LABS: Total Iron Binding Capacity 254 ug/dL (265-497)
--- NOTE | 2025-02-26 13:39 | HMH.OTEV ---
OT Inpatient Evaluation Rehab OT IP Evaluation Start: 02/26/25 11:06 Freq: ONCE Status: Active Protocol: Document 02/26/25 13:32 DOROTHY (Rec: 02/26/25 13:39 DOROTHY [id number]) Rehab OT IP Assessment Subjective History PER HPI narrative: Loreta Santiago is a 74-year-old female with a history of COPD, heart failure, chronic anemia who presents to the Emergency Department via EMS for shortness of breath. Patient was seen in the emergency department 2 days ago for COPD exacerbation and elected to go home after treatment. She is on 4 L nasal cannula at baseline. Per EMS, she had worsening shortness of breath today and was found tripoding on the edge of the bed. She received an albuterol treatment prior to arrival. She is short of breath and speaking in shortened sentences. She is not sure if she would want a breathing tube at this time if needed. Subjective I try. Pt supine in bed when therapy entered room. Pt orient x3. Pt agreed to initial OT eval this PM. Pt's daughter present for session. Pt reported they live with daughter in [facility] home and live on first level. Pt reports they have bedside commode, shower chair, and uses RW walker for FM tasks. Pt reports they have 4 steps to enter home with HR. pt reports they do not drive, normally on 4 L O2, currently on room air with fan blowing towards pt. Pt's O2 levels were 94% prior to FM tasks. Pt agreed to sit on EOB. Pt went from supine to EOB with SBA. Pt then donned house shoes ind. Pt then completed STS with walker with SBA. Pt then completed FM task of aprox 10 ft with CGA for safety. Pt demo fair activity tolerance which was reported by pt and daughter that was baseline. Pt then went back to EOB and into supine position with SBA. Pt's O2 levels were at 90% after FM task and back to 92% before therapy exited. Daughter reports pt has 24/7 care and assist at home and is supposed to receive HH services to further address functional limitations in occupational performance. Pt does not drive and is ind in ADLs with walk in shower. daughter and family complete IADLs. Pt left supine in bed with call light and all other needs within reach. Objective Patient Orientation Person,Place,Birthday Right Upper WFL Extremity Gross ROM Left Upper Extremity WFL Gross ROM Shoulder ROM Muscle Weakness Limitations Elbow ROM Muscle Weakness Limitations Bed Mobility bed mobility-scooting,bed mobility - supine/sit Assist Level Independent Transfer Training Sit/Stand Transfer Assist Level Supervision/Stand by Chair Transfer Sit to/from Ambulatory Technique Chair Transfer Rolling Walker Assistive Devices Lower Body Dressing Independent Ability Decrease in Yes: pt reported at baseline with endurance for tasks Endurance Rehab OT IP prob,goals,plan Problems Date of Evaluation: 02/26/25 Rehab Potential Rehab Potential Innapropriate for Skilled Therapy Discharge Plan OT Discharge Plan At this time, pt presents at baseline per condition pt has. Pt would not benefit from skilled acute OT services and interventions while admitted at [facility]. Pt could benefit from HH services once DC from [facility] to address functional limitations in occupational performance with skilled OT services and interventions. Eval Complexity Eval Charge Codes 99414 - Moderate Complexity PHYSICIAN CERTIFICATION: I certify the specified therapy services for Loreta Santiago are required, authorized, and reviewed every 30 days.
--- NOTE | 2025-02-26 13:47 | HMH.PTEV ---
Physical Therapy Evaluation Rehab PT IP Evaluation Start: 02/26/25 11:06 Freq: ONCE Status: Active Protocol: Document 02/26/25 13:40 DELIO (Rec: 02/26/25 13:46 DELIO [id number]) Subjective/History History History 74-year-old female who presented to the emergency department today with complaints of increased shortness of breath. She has a primary medical history of COPD with baseline O2, HFpEF, hyperlipidemia, hypertension, chronic anemia. Patient stated that she has been having increased oxygen demand, she is typically wears 3 L nasal cannula but has been wearing 5 L nasal cannula. She has been using nebulizers at home but they have not been helping, she states she is unable to speak in full sentences. She states she has not smoked in 10 years. She states in the last month she has had multiple hospital admissions and emergency room visits due to her shortness of air. She reports she lives with daughter, 1 [address] the home, uses a RW for all mobility, and has assistance with all ADLs at baseline. Subjective Subjective She reports feeling short of air with any exertion. Oxygen not on at this time per MD order. Oxygen sat prior to treatment 94% and after treatment 90%. [facility] How much help from another person do you currently need... Turning from your None back to your side while in a flat bed without using bedrails? Moving from lying on None back to sitting on the side of a flat bed without using bedrails? Moving to and from a None bed to a chair ( including a wheelchair)? Standing up from a None chair using your arms? (e.g., wheelchair, bedside chair) Walking in hospital None room? Climbing 3-5 steps A little with a railing? Mobility Score 23 Mobility Level [facility] Mobility 7 Walk 25 feet or more Mobility Calculator Rehab PT IP Eval Objective Appearance Patient Behavior Appropriate Patient Orientation Person,Place,Time Difficulty following none instructions Speech Pattern Clear Ambulation Patient Able to Yes Ambulate Ambulation Observation IP General Gait Shuffling Step Pattern Observation Ambulation Distance 25 (feet) Ambulation Assistive Rolling Walker Device Ambulation Ability Independent Balance Ability to Arise Able, uses arms to help Sitting Balance Steady, safe Standing Balance Steady, wide stance Dynamic Sitting Good Balance Ability Dynamic Standing Good Balance Ability Transfers Bed Transfer Ability Independent Chair Transfer Independent Ability Sit to Stand Bed Independent Transfer Ability Sit to Stand Chair Independent Transfer Ability Rehab PT IP prob,goals,plan Problems Date of Evaluation: 02/26/25 Discharge Plan PT Discharge Plan Pt is currently appropriate to return home once medically stable for d/c. She continues to have 27/02 assist available at home. Recommend continued home health therapy after d/c. No current inpatient acute skilled therapy needs. Eval Complexity Eval Charge Codes 39797 - High Complexity PHYSICIAN CERTIFICATION: I certify the specified therapy services for Loreta Santiago are required, authorized, and reviewed every 30 days.
[2025-02-26] MEDS: FUROSEMIDE 40MG/4ML VIAL 40 MG IV (14:40)
--- NOTE | 2025-02-26 14:43 | SW/DCPLANNER ---
Addendum entered by Kelsea Larose 02/27/25 12:47: Faxed patient's resumption of care and D/C order to [facility] for they can start home health back with patient. Lion Robles Original Note: Patient is with [facility] home health and will be going back with the agency. I have spoke with [facility] and we will need to send a resumption of care and D/C summary to [facility]. Lion Robles
--- NOTE | 2025-02-26 17:48 | PC.NURSE ---
Pt was admitted for COPD exacerbation. Pt is AOx4. Pt has stayed in bed the majority of the day. She does have a pure wick. She is also monitored by the tele monitor. Pt on 2LNC, Dr. Vega did take her off oxygen, she has dropped to 88% but recovered quickly. Pt has remained on room air, Pt's oxygen runs in the low 90s. Pt has c/o back pain today and was given medication per OCT. Call light within reach. Continue to monitor.
[2025-02-26] MEDS: ATORVASTATIN 40MG TABLET 40 MG PO (21:01)
[2025-02-26] MEDS: MONTELUKAST SODIUM 10MG TAB 10 MG PO (21:01)
[2025-02-27] VITALS (7 sets, daily range): BP systolic 106–124; BP diastolic 46–60; PULSE 62–85; RESP 16–22; TEMP 36.6–36.8; O2SAT 89–94; BMI 22.7
[2025-02-27] MEDS: IPRATROPIUM/ALBUTEROL 3 ML NEB IH ×3 (00:25→11:06)
--- NOTE | 2025-02-27 03:45 | PC.NURSE ---
Patient is pleasantly alert and oriented x4. She was observed to be resting in bed with eyes closed, respirations even and unlabored on room air, and no apparent distress throughout the majority of the night. Patient's oxygen saturations have remained within the low 90s this shift. She has not had any complaints of shortness of breath while at rest. Upon auscultation of her lungs, diminished sounds were heard. Continuous pulse ox + multi slide machine tender remain in place. Patient has also not had any reports of anxiousness this shift. Scheduled medications were administered per MAR; breathing treatments given by RTs. [place] was administered per MAR once for relief of the patient's complaint of chronic, lower back pain (also radiates to her left hip/buttock area). Refused SCDs. Patient gets up with assistance during ambulation/transfers. A female purewick remains in place for urination needs. At this time, the patient is resting in bed without any further complaints. No new needs thus far. Call light within reach.
[2025-02-27 06:10] LABS: Hematocrit 29.2 % (37.0-47.0); Hemoglobin 8.4 g/dL (12.2-16.2); Immature Granulocytes % 0.6 %; Mean Corpuscular HGB Conc 28.8 g/dL (31.8-35.4); Mean Corpuscular Hemoglobin 23.8 pg (27.0-31.2); Mean Corpuscular Volume 82.7 fl (81-99); Nucleated Red Blood Cells % 0 %; Platelet Count 227 K/mm3 (142-424); Red Blood Count 3.53 M/mm3 (4.20-5.40); Red Cell Distribution Width-SD 69.2 fL; White Blood Count 12.1 K/mm3 (4.8-10.8)
[2025-02-27] MEDS: BUDESONIDE 0.5MG/2ML NEB 0.5 MG IH (06:13)
[2025-02-27 06:21] LABS: Alanine Aminotransferase 18 U/L (12-78); Albumin Level 3.7 g/dl (3.5-5.0); Albumin/Globulin Ratio 1.8 (1.1-1.8); Alkaline Phosphatase 95 U/L (38-126); Anion Gap 10.2 mEq/L (5-15); Aspartate Amino Transferase 25 U/L (14-36); Bilirubin,Total 0.5 mg/dl (0.2-1.3); Blood Urea Nitrogen 20 mg/dl (7-17); Calcium 8.6 mg/dl (8.4-10.2); Carbon Dioxide 29 mmol/L (22.0-30.0); Chloride 102 mmol/L (98-107); Creatinine Clearance Estimated 28 mL/min (50-200); Creatinine,Serum 1.50 mg/dl (0.52-1.04); Estimated Glomerular Filt Rate 34 ml/min (>60); GFR (African American) 41 ML/MIN (>60); Globulin 2.1 g/dL (1.3-3.2); Glucose 112 mg/dl (74-100); Potassium 3.2 mmoL/L (3.5-5.1); Sodium 138 mmol/L (136-145); Total Protein,Serum 5.8 g/dl (6.3-8.2)
[2025-02-27] MEDS: POLYETHYLENE GLYCOL 3350 17 GM PACKET PO (08:48)
[2025-02-27] MEDS: APAP/HYDROCODONE 325MG/7.5MG TAB 1 TAB PO (08:48)
[2025-02-27] MEDS: CLOPIDOGREL 75MG TAB 75 MG PO (08:49)
[2025-02-27] MEDS: SPIRONOLACTONE 25MG TABLET 25 MG PO (08:49)
[2025-02-27] MEDS: SERTRALINE 100MG TABLET 200 MG PO (08:49)
[2025-02-27] MEDS: CARVEDILOL 25MG TABLET 25 MG PO (08:49)
[2025-02-27] MEDS: EMPAGLIFLOZIN 10MG TABLET 10 MG PO (08:49)
[2025-02-27] MEDS: FUROSEMIDE 40 MG TABLET PO (08:49)
[2025-02-27] MEDS: IRBESARTAN 75MG TABLET 75 MG PO (08:49)
--- NOTE | 2025-02-27 09:50 | P.PN_ITS ---
Subjective *Date: 02/27/25 *Time: 12:36 Interval history: Thank you for involving pulmonary in this patient care. Pulmonology Exam Inpatient Vital signs and Labs for Last 24 Hours: Temp Pulse Resp BP Pulse Ox O2 Del Method O2 Flow Rate 98.3 F 72 16 123/59 L 94 L Room Air 2 02/27/25 08:00 02/27/25 08:00 02/27/25 08:00 02/27/25 08:00 02/27/25 08:00 02/27/25 08:00 02/26/25 11:20 FiO2 32 02/25/25 12:42 Laboratory Results - last 24 hr 02/26/25 05:30: Iron 33 L, TIBC 254 L, Iron Saturation 12.83916 L, Vitamin B12 953 H 02/26/25 09:59: Specimen Source Right radial, O2 % Room air, ABG pH 7.38, ABG p CO2 42.9, ABG pO2 52.9 L, ABG HCO3 24.6, ABG Total CO2 25.9, ABG O2 Saturation 87 L*, ABG Base Excess -0.6, Arturo Test Acceptable 02/27/25 05:27: WBC 12.1 H, RBC 3.53 L, Hgb 8.4 L, Hct 29.2 L, MCV 82.7, MCH 23.8 L, MCHC 28.8 L, RDW 23.0 H, Plt Count 227, MPV 10.9 H, Neut % (Auto) 74.7, Lymph % (Auto) 15.3, [place] % (Auto) 9.2, Eos % (Auto) 0.1, Baso % (Auto) 0.1, Neut # (Auto) 9.1 H, Lymph # (Auto) 1.9, [place] # (Auto) 1.1 H, Eos # (Auto) 0.0, Baso # (Auto) 0.0, Sodium 138, Potassium 3.2 L, Chloride 102, Carbon Dioxide 29, Anion Gap 10.2, BUN 20 H, Creatinine 1.50 H, Estimated Creat Clear 28, Estimated GFR 34 L, Est GFR ( Amer) 41 L, Glucose 112 H, Calcium 8.6, Total Bilirubin 0.5, AST 25, ALT 18, Alkaline Phosphatase 95, Total Protein 5.8 L, Albumin 3.7 D, Globulin 2.1, Albumin/Globulin Ratio 1.8 Temp Pulse Resp BP Pulse Ox O2 Del Method O2 Flow Rate 97.6 F 69 18 121/54 L 99 Nasal Cannula 2 02/26/25 08:00 02/26/25 08:00 02/26/25 08:00 02/26/25 08:00 02/26/25 08:31 02/26/25 08:31 02/26/25 08:31 FiO2 32 02/25/25 12:42 Laboratory Results - last 24 hr 02/25/25 11:14: Troponin I 0.06 H 02/25/25 13:36: PT 11.6, INR 1.05, D-Dimer 1.15 H 02/25/25 13:37: Chlamy pneumoniae PCR Not detected, Adenovirus (PCR) Not detected, B. pertussis DNA (PCR) Not detected, Coronavirus OC43 (PCR) Not detected, Coronavirus HKU1 (PCR) Not detected, Coronavirus 229E (PCR) Not detected, SARS-CoV-2 (PCR) Not detected, Coronavirus NL63 (PCR) Not detected, Human Metapneumovir PCR Not detected, Influenza A (H1) PCR Not detected, Influ A (H1N1/09) PCR Not detected, Influenza A (H3) PCR Not detected, Influenza Type A (PCR) Not detected, Influenza Type B (PCR) Not detected, M. pneumoniae (PCR) Not detected, Parainfluenza 1 (PCR) Not detected, Parainfluenza 2 (PCR) Not detected, Parainfluenza 3 (PCR) Not detected, Parainfluenza 4 (PCR) Not detected, RSV (PCR) Not detected, Entero/Rhino (PCR) Not detected 02/25/25 14:53: Troponin I 0.05 H 02/26/25 05:30: WBC 10.6 D, RBC 3.30 L, Hgb 8.0 L D, Hct 27.3 L, MCV 82.7, MCH 24.2 L, MCHC 29.3 L, RDW 22.7 H, Plt Count 210, MPV 10.8 H, Neut % (Auto) 76.8, Lymph % (Auto) 11.9, [place] % (Auto) 10.9 H, Eos % (Auto) 0.0 L, Baso % (Auto) 0.0 L, Neut # (Auto) 8.1 H, Lymph # (Auto) 1.3, [place] # (Auto) 1.2 H, Eos # (Auto) 0.0, Baso # (Auto) 0.0, Sodium 140, Potassium 3.9, Chloride 107, Carbon Dioxide 30, Anion Gap 6.9, BUN 19 H, Creatinine 1.30 H, Estimated Creat Clear 33, Estimated GFR 40 L, Est GFR ( Amer) 48 L, Glucose 102 H, Calcium 8.6, Magnesium 1.8, Total Bilirubin 0.5, AST 23 D, ALT 18 D, Alkaline Phosphatase 86, Total Protein 5.6 L, Albumin 3.3 L D, Globulin 2.3, Albumin/Globulin Ratio 1.4 I & O for Labs for Last 24 Hours: Intake & Output 02/24/25 02/25/25 02/26/25 02/27/25 23:59 23:59 23:59 23:59 Intake Total 720 / 1075 595 / 595 Output Total 1300 / 1300 1500 / 1500 400 / 400 Balance -1300 / -1300 -780 / -425 195 / 195 Weight 122 lb 12.76 oz 123 lb 120 lb 8 oz Intake & Output 02/23/25 02/24/25 02/25/25 02/26/25 23:59 23:59 23:59 23:59 Intake Total 120 / 120 Output Total 1300 / 1300 Balance -1300 / -1300 120 / 120 Weight 122 lb 12.76 oz 123 lb Constitutional: Present mild distress Head: Present normocephalic and atraumatic ENT: Present normal exam, normal oropharynx and mucous membranes moist Neck: Present normal inspection and full ROM Respiratory: Present prolonged expiratory phase and able to speak in complete sentences; Absent respiratory distress, wheezes or diminished air movement Cardiac: Present S1/S2, Tachycardia and radial pulses present GI: Present soft and distention; Absent tenderness or guarding Rectal (female): Present deferred (female): Present deferred Skin: Present intact; Absent cyanosis or jaundice Neuro: Present alert, awake and oriented x 3 Extremities: Present normal inspection; Absent clubbing or cyanosis Psychiatric: Present normal affect and cooperative Assessment and Plan *Assessment and plan (1) COPD mixed type: Status: Acute Category: Medical Code(s): J44.9 - Chronic obstructive pulmonary disease, unspecified (2) Acute on chronic respiratory failure with hypoxia and hypercapnia: Status: Acute Category: Medical Code(s): J96.21 - Acute and chronic respiratory failure with hypoxia; J96.22 - Acute and chronic respiratory failure with hypercapnia Plan Ms. Santiago is a 74-year-old male greater than [id number] smoking history history of COPD chronic hypoxic hypercarbic respiratory failure recent multiple hospital admissions for recurrent hypercarbic respiratory failure presented to the ER with worsening respiratory distress and pulmonary was called for further evaluation management. Patient predominant complaint today including worsening respiratory distress and worsening lower extremity swelling. Patient also presented to the ER on 02/23/2025 with worsening respiratory distress discharged home on 20 mg of prednisone daily for presumed COPD exacerbation. Afebrile. Hemodynamically stable. No significant evidence of leukocytosis. Blood gas upon admission, mixed metabolic and respiratory acidosis on venous blood gas. Chest x-ray upon admission bilateral interstitial changes / edema. Receiving DuoNebs along with Pulmicort, steroids and home diuretic regimen Repeat blood gas from this morning on room air did not show any evidence of hypercarbic respiratory failure. On 2 L saturating 100% on examination. No significant wheezing noted on auscultation. Interval update: Continue to remain on room air, saturating 90 to 92%. Continue to receive DuoNebs every 6 hours and Pulmicort every 12 scheduled Net negative volume status Repeat chest x-ray from this morning clear with no acute pulmonary infiltrates Patient also noted to have chronic anemia with a hemoglobin always of greater than 7, might be contributing to her respiratory symptom burden Plan: Oxygen supplementation only as needed to maintain O2 saturation goal of 90% to 95%. 6-minute walk testing prior to discharge DuoNebs every 6 hours along with Pulmicort every 12 scheduled ENT referral as an outpatient basis for possible vocal cord dysfunction given her extreme variations in her respiratory symptoms and oxygen requirements Behavioral health evaluation as an outpatient basis for her uncontrolled anxiety issues. Outpatient hematology evaluation for her chronic anemia # Thank you for involving pulmonary in this patient care. Will follow the patient in pulmonary clinic 5 to 7 days postdischarge.
--- NOTE | 2025-02-27 09:51 | XR_ITS ---
FINAL REPORT CLINICAL HISTORY: SOB COMPARISON: 02/25/2025 FINDINGS: No acute pulmonary opacity is present. There are changes of emphysema. There is no evidence of effusion or pneumothorax. Mediastinum is unremarkable. Heart size is normal. IMPRESSION: No acute abnormality. Reviewed, Interpreted and Dictated by Renzo Mcintyre MD Transcribed by Yue Prieto Authenticated and [facility]
--- NOTE | 2025-02-27 10:24 | P.DS_ITS ---
<Statement entered by Hina Montgomery MD - 03/08/25 17:31> Agree with [facility] note as documented General Admission date:: 02/25/25 Discharge date: 02/27/25 HPI HPI HPI: Ms. Santiago is a 74-year-old female who presented to the emergency department today with complaints of increased shortness of breath. She has a primary medical history of COPD with baseline O2, HFpEF, hyperlipidemia, hypertension, chronic anemia. Patient stated that she has been having increased oxygen demand, she is typically wears 3 L nasal cannula but has been wearing 5 L nasal cannula. She has been using nebulizers at home but they have not been helping, she states she is unable to speak in full sentences. She states she has not smoked in 10 years. She states in the last month she has had multiple hospital admissions and emergency room visits due to her shortness of air. Hospital Course Hospital Course Hospital Course: Ms. Santiago is a 74-year-old female with a significant medical history of COPD/emphysema: On baseline 3 L nasal cannula at home, HFpEF, hypertension, hyperlipidemia, iron deficient anemia, mood disorder. She presented to the emergency department today with increasing shortness of breath. She was transported via ambulance to the ER and found to be hypoxic, O2 saturation in 80s. She was placed on CPAP in the ambulance and transition to nasal cannula in the emergency department maintaining O2 saturation above 90%. Patient still felt very short of breath, the ED physician started Vapotherm for comfort. Patient was noted to have leukocytosis, white count 17.6. VBG showed a pH of 7.18, PO2 87.6. Patient's kidney function appeared to be at baseline BUN 18, creatinine 1.2. Troponins elevated 0.05, 0.06 and BNP elevated at 4930. Patient improved in the emergency room after magnesium, steroids, DuoNebs, increased oxygen. ED physician contacted hospital medicine for admission for further monitoring and management of patient COPD exacerbation, I agreed to admit the patient plan as follows Patient currently receiving home health, PT/OT services at home on a weekly basis. Patient has been unable to utilize the services due to frequent admissions recently. Had a goals of care discussion with patient and daughter, they stated that the ER physician told them that she was in end-stage of COPD. Patient stated I am just feeling done, I cannot keep doing this . Discussed with patient and daughter about their goals of care, patient states she just would like to feel better and she feels that the shortness of breath and anxiety are taking over. Did discuss with them the option of having hospice or social work come talk with them, at this time the patient feels that she can get her anxiety under control and her breathing better, she would feel much better and would not be interested in hospice or other palliative options. I discussed with patient that I to agree that optimizing medical management is an appropriate choice and we will work on medical management as best as possible during her admission. Day of discharge patient is in great spirits, remains on room air with little shortness of breath. Oxygen saturation were above 88%. Patient states she feels comfortable with the plan at discharge. Plans to resume home health with PT/OT services at discharge. Patient is also scheduled for a weekly infusion of Venofer with the outpatient infusion department, appointment on 03/05/2025 at 11 AM for third dose. #Acute extubation of COPD #Elevated troponin #Pulmonary emphysema ? Patient has have a progression in her shortness of breath over the past few weeks, worse in the last few days. She was recently hospitalized for increasing shortness of breath, she has been requiring anywhere from 3 to 5 L nasal cannula at home. Patient was originally admitted on Vapotherm, quickly weaned to her baseline 3 L. Able to wean to room air this morning. Patient feeling much better this morning, states she is not short of breath at rest, mild shortness of breath with exertion. ? On admission checks x-ray showed no acute findings, repeat day of discharge chest x-ray again shows no acute findings. ? Respiratory panel negative. ? During admission patient received Pulmicort twice daily, DuoNebs every 6 hours scheduled. Prednisone discontinued per pulmonology. will hold on antibiotics at this time, patient recently finished course of antibiotics at home. ? Pulmonary follow-up at discharge. Plan for PFTs. ? Serial troponin slightly elevated initial troponin 0.05, repeat 0.06, repeat 0.05. Patient had recent heart cath in early January which was unremarkable. Echo showed EF 55%. Elevated troponin likely due to pulmonary stress. Patient denies any chest pain. ? CBC and CMP remained stable. Patient noted to have slight increase in kidney function, creatinine 1.5. Patient to have kidney function monitored at follow- up appointment. ? Potassium slightly low, 3.2?discharge. Will hold on replacement at this time due to decreased kidney function. Patient to have chemistry checked at PCP follow-up. #HFpEF ? Patient was diuresed with Lasix 40 mg daily during admission, patient -2 L since admission. States she feels much better for her work of breathing. Patient to continue Lasix 40 mg daily at discharge #Hypertension ? Will restart spironolactone 25 mg daily, Jardiance 10 mg daily, Ibersartan 75 mg daily, clopidogrel 75 mg, Coreg 25 mg twice daily. #Hyperlipidemia ? Will restart atorvastatin 40 mg at bedtime. #Iron deficient anemia ? Patient has known iron deficient anemia, will continue to monitor. ?Patient hemoglobin this morning 8.0, patient receives Venofer infusions weekly, she has not been able to receive her infusions recently due to hospitalizations. Will give one-time dose of Venofer today. Made appointment with outpatient infusion for infusion next week, 03/05/2025 at 11 AM. #Mood disorder ? Restart patient's home medicine sertraline 200 mg daily. ?After long discussion with patient about her mood disorder and anxiety she states that she feels that a lot of her shortness of breath is attributed to her anxiety, she feels short of breath and therefore feels more anxious and it is a continuous cycle. Patient's daughter brought in home medications, after looking through the medications it appears that she was taking Wellbutrin 150 mg twice daily, she states that she has taken this medication for very long time, the bottle was empty and states it was last refilled on 11/13/24. Patient states she must of forgot to get it refilled or the pharmacy did not fill it. Discussed with patient this may be a possibility for her worsening anxiety. Will restart her Wellbutrin at 75 mg twice daily, she should continue Wellbutrin 75 mg twice daily at discharge. Total time spent on discharge: 39 minutes on chart review, counseling, documentation, and direct care with patient. Exam Data for Last 24 hours Vital signs and Labs for Last 24 Hours: Temp Pulse Resp BP Pulse Ox O2 Del Method O2 Flow Rate 98.3 F 72 16 123/59 L 94 L Room Air 2 02/27/25 08:00 02/27/25 08:00 02/27/25 08:00 02/27/25 08:00 02/27/25 08:00 02/27/25 08:00 02/26/25 11:20 FiO2 32 02/25/25 12:42 Laboratory Results - last 24 hr 02/26/25 05:30: Iron 33 L, TIBC 254 L, Iron Saturation 12.24226 L, Vitamin B12 953 H 02/27/25 05:27: WBC 12.1 H, RBC 3.53 L, Hgb 8.4 L, Hct 29.2 L, MCV 82.7, MCH 23.8 L, MCHC 28.8 L, RDW 23.0 H, Plt Count 227, MPV 10.9 H, Neut % (Auto) 74.7, Lymph % (Auto) 15.3, [place] % (Auto) 9.2, Eos % (Auto) 0.1, Baso % (Auto) 0.1, Neut # (Auto) 9.1 H, Lymph # (Auto) 1.9, [place] # (Auto) 1.1 H, Eos # (Auto) 0.0, Baso # (Auto) 0.0, Sodium 138, Potassium 3.2 L, Chloride 102, Carbon Dioxide 29, Anion Gap 10.2, BUN 20 H, Creatinine 1.50 H, Estimated Creat Clear 28, Estimated GFR 34 L, Est GFR ( Amer) 41 L, Glucose 112 H, Calcium 8.6, Total Bilirubin 0.5, AST 25, ALT 18, Alkaline Phosphatase 95, Total Protein 5.8 L, Albumin 3.7 D, Globulin 2.1, Albumin/Globulin Ratio 1.8 I & O for Last 24 hours: Intake & Output 02/24/25 02/25/25 02/26/25 02/27/25 23:59 23:59 23:59 23:59 Intake Total 720 / 1075 595 / 595 Output Total 1300 / 1300 1500 / 1500 400 / 400 Balance -1300 / -1300 -780 / -425 195 / 195 Weight 55.7 kg 55.792 kg 54.658 kg Constitutional Constitutional: no acute distress, thin and cooperative *Routine HEENT Exam Head: Present normocephalic Eye: Present EOMI and PERRL ENT: Present mucous membranes moist *Routine Neck Exam Neck: Present supple; Absent lymphadenopathy *Routine Respiratory Exam Respiratory: Present CTA bilaterally, able to speak in complete sentences and symmetric chest movement *Routine Cardiovascular Exam Cardiovascular: Present RRR; Absent murmur *Routine Abdominal Exam Abdominal: Present soft and normoactive bowel sounds; Absent tenderness *Routine Rectal Exam Patient deferred: visual exam *Routine Exam Patient deferred: external exam *Routine Extremities Exam Extremities: Absent cyanosis, clubbing or edema *Routine Skin Exam Skin: Present intact and warm; Absent rash *Routine Neurological Exam Neurological: Present alert, oriented X3 and normal speech Results Data Completed and Pending Labs on day of discharge: Labs from last 24 hours 02/27/25 02/26/25 05:27 05:30 WBC 12.1 H RBC 3.53 L Hgb 8.4 L Hct 29.2 L MCV 82.7 MCH 23.8 L MCHC 28.8 L RDW 23.0 H Plt Count 227 MPV 10.9 H Neut % (Auto) 74.7 Lymph % (Auto) 15.3 [place] % (Auto) 9.2 Eos % (Auto) 0.1 Baso % (Auto) 0.1 Neut # (Auto) 9.1 H Lymph # (Auto) 1.9 [place] # (Auto) 1.1 H Eos # (Auto) 0.0 Baso # (Auto) 0.0 Sodium 138 Potassium 3.2 L Chloride 102 Carbon Dioxide 29 Anion Gap 10.2 BUN 20 H Creatinine 1.50 H Estimated Creat Clear 28 Estimated GFR 34 L Est GFR ( Amer) 41 L Glucose 112 H Calcium 8.6 Iron 33 L TIBC 254 L Iron Saturation 12.53429 L Total Bilirubin 0.5 AST 25 ALT 18 Alkaline Phosphatase 95 Total Protein 5.8 L Albumin 3.7 D Globulin 2.1 Albumin/Globulin Ratio 1.8 Vitamin B12 953 H DS: Diagnosis Discharge Diagnosis (1) COPD mixed type: Status: Acute Code(s): J44.9 - Chronic obstructive pulmonary disease, unspecified (2) Acute on chronic respiratory failure with hypoxia and hypercapnia: Status: Acute Code(s): J96.21 - Acute and chronic respiratory failure with hypoxia; J96.22 - Acute and chronic respiratory failure with hypercapnia Meds Home Medications and Allergies Home Medications ?Medication ?Instructions ?Recorded ?Confirmed ?Type atorvastatin 40 mg tablet 40 mg PO HS 12/31/23 5 History clopidogrel 75 mg tablet 75 mg PO DAILY 12/31/2302/05 History sertraline 100 mg tablet 200 mg PO DAILY 12/31/23 History cyanocobalamin (vitamin B-12) 1,000 mcg PO DAILY 04/0202/25/25 History 1,000 mcg tablet isosorbide mononitrate 60 mg 60 mg PO DAILY #30 tabs 0 01/07/25 02/25/25 Rx tablet,extended release 24 hr meloxicam 15 mg tablet 15 mg PO DAILY 01/07/2502/05 History montelukast 10 mg tablet 10 mg PO HS 01/07/25 5 History furosemide 40 mg tablet 40 mg PO DAILY 30 days #30 t abs 01/17/25 02/25/25 Rx empagliflozin 10 mg tablet 10 mg PO DAILY 30 days #30 tabs 02/04/25 02/25/25 Rx (Jardiance) irbesartan 75 mg tablet 75 mg PO DAILY 30 days #30 t abs 02/04/25 02/25/25 Rx spironolactone 25 mg tablet 25 mg PO DAILY 30 days #30 tabs 02/04/25 02/25/25 Rx albuterol sulfate 90 mcg/actuation 2 inh inhalation QI DP PRN 02/12/25 02/25/25 History aerosol inhaler shortness of breath or wheez ing polyethylene glycol 3350 17 gram 17 g PO DAILY 30 days #30 ea 02/14/25 02/25/25 Rx oral powder packet (HealthyLax) rivastigmine 4.6 mg/24 hour 4.6 mg topical Q48H 02/25/25 History transdermal patch fluticasone fur. 100 mcg-umeclid 1 inh inhalation LINDSAY Y 90 days #60 02/20/25 02/25/25 Rx 62.5 mcg-vilant 25 mcg ea inhalat.powder (Trelegy Ellipta) ipratropium 0.5 mg-albuterol 3 mg 3 ml inhalation Q6HP PRN shortness 02/21/25 02/25/25 Rx (2.5 mg base)/3 mL nebulization of breath or wheezing 30 days #180 soln mL carvedilol 25 mg tablet 25 mg PO BIDWMEAL 02/25/25 0 02/25/25 History hydrocodone 7.5 mg-acetaminophen 1 tab PO Q8HP PRN Mil d Pain (Scale 02/25/25 02/25/25 History 325 mg tablet Score 1-4) bupropion HCl 75 mg tablet 75 mg PO BID 30 days #60 ta bs 02/27/25 Rx New Prescriptions to Start Prescriptions: bupropion HCl Tita Rodriguez Allergies Allergy/AdvReac Type Severity Reaction Status Date / Time No Known Allergies Allergy Verified 02/20/25 13:44 Discharge Plan Disposition Patient Disposition: Home Health Service Condition: Fair Discharge Order Discharge Orders: Discharge Order (Routine); Ordered 02/27/25 Ordered By: Tita Rodriguez Follow up Plan Follow up with: Indy Lora APRN [Primary Care Provider, Medical] - 03/10/25 11:00 am Nora Vega MD [Physician, Pulmonology] - 03/31/25 2:20 pm Prescriptions/Medication Reconciliation: New bupropion HCl 75 mg Tablet 75 mg PO BID 30 Days Qty: 60 1RF Continued cyanocobalamin (vitamin B-12) 1,000 mcg tablet 1,000 mcg PO DAILY meloxicam 15 mg tablet 15 mg PO DAILY montelukast 10 mg tablet 10 mg PO HS isosorbide mononitrate 60 mg tablet extended release 24 hr 60 mg PO DAILY Qty: 30 3RF Trelegy Ellipta 100-62.5-25 mcg blister with device 1 inh inhalation DAILY 90 Days Qty: 60 3RF ipratropium-albuterol 0.5 mg-3 mg(2.5 mg base)/3 mL solution for nebulization 3 ml inhalation Q6HP PRN (Reason: shortness of breath or wheezing) 30 Days Qty: 180 0RF furosemide 40 mg Tablet 40 mg PO DAILY 30 Days Qty: 30 3RF spironolactone 25 mg Tablet 25 mg PO DAILY 30 Days Qty: 30 0RF irbesartan 75 mg Tablet 75 mg PO DAILY 30 Days Qty: 30 0RF Jardiance 10 mg Tablet 10 mg PO DAILY 30 Days Qty: 30 0RF atorvastatin 40 mg tablet 40 mg PO HS sertraline 100 mg tablet 200 mg PO DAILY clopidogrel 75 mg tablet 75 mg PO DAILY albuterol sulfate 90 mcg/actuation HFA aerosol inhaler 2 inh inhalation QIDP PRN (Reason: shortness of breath or wheezing) rivastigmine 4.6 mg/24 hour Patch 24 Hour 4.6 mg topical Q48H Rx Instructions: changes every other day due to nausea polyethylene glycol 3350 [HealthyLax] 17 gram Powder In Packet 17 g PO DAILY 30 Days Qty: 30 0RF hydrocodone-acetaminophen 7.5-325 mg tablet 1 tab PO Q8HP PRN (Reason: Mild Pain (Scale Score 1-4)) carvedilol 25 mg tablet 25 mg PO BIDWMEAL Problem Reconciliation Problems Reviewed?: Yes Patient Discharge Instructions ACTIVITY: Continue current activity DIET: continue same diet Additional Instructions: Venofer Infusion 03/05/25 @ 11 am in Infusion Dept, 1st floor. Report directly to the dept to check in. Continue with home health and in pt physical therapt. Patient Instructions: Stop Light COPD, Stop Light Heart Failure Print Language: Jamaican Providers Primary Care Provider: Indy Lora Admit Provider: Juan Manuel Stringer Attending Provider: Juan Manuel Stringer
--- NOTE | 2025-02-28 10:36 | SW/DCPLANNER ---
Spoke with patient on the phone. Patient stated that she is doing good. Patient stated that she is aware of her upcoming appointments. Patient stated that she was able to get her medicine picked up. Patient stated that she has no concerns or questions at this time. Lion Robles
== END 2025-02-27 13:25 | disposition home health service (06) | DRG 189 ==
LOC: ER 13:20 → ICU 13:31 → 2ND 16:51
PROVIDERS: Internal Medicine Pulmonary Disease; Admitting Provider Internal Medicine Adolescent Medicine; Emergency Provider Student in an Organized Health Care Education/Training Program; PCP Nurse Practitioner; Visit Provider Internal Medicine Adolescent Medicine
DX: J96.21 Acute and chronic respiratory failure with hypoxia (principal); I50.33 Acute on chronic diastolic (congestive) heart failure; J44.1 Chronic obstructive pulmonary disease with (acute) exacerbation; J96.22 Acute and chronic respiratory failure with hypercapnia; E78.5 Hyperlipidemia, unspecified; I11.0 Hypertensive heart disease with heart failure; D50.9 Iron deficiency anemia, unspecified; F39 Unspecified mood [affective] disorder; I25.10 Atherosclerotic heart disease of native coronary artery without angina pectoris; R79.89 Other specified abnormal findings of blood chemistry; Z87.891 Personal history of nicotine dependence; I27.20 Pulmonary hypertension, unspecified; F41.9 Anxiety disorder, unspecified; Z66 Do not resuscitate; R00.0 Tachycardia, unspecified; Z79.02 Long term (current) use of antithrombotics/antiplatelets; Z79.899 Other long term (current) drug therapy; Z99.81 Dependence on supplemental oxygen
CPT/HCPCS: 36415; 71045; 80053; 82607; 82803; 83540; 83550; 83735; 83880; 84484; 85025; 85378; 85610; 87633; 93005; 94640; 94761; 97163; 97166; J1756; J1938; J2405; J2919; J3475

== ENCOUNTER 2025-03-02 23:27 | Inpatient (IN) | payer MEDICARE, SELFPAY ==
[2025-03-02 23:25] VITALS: BP 202/122; PULSE 85; RESP 22; TEMP 36.7; O2SAT 96; BMI 21.7
--- NOTE | 2025-03-02 23:28 | ECG_ITS ---
APPROVED REPORT Exam: Resting ECG HR:78 bpm ECG Measurements Heart Rate 78 AXES CA 126 P 89 QRSd 90 QRS 86 QT 372 T 93 QTc 405 Conclusion SINUS RHYTHM MODERATE ST DEPRESSION [0.05+ mV ST DEPRESSION] ABNORMAL ECG UNCONFIRMED REPORT Electronically signed by : JAZZ AUGUSTINE, 03/04/2025 03:49:14
--- NOTE | 2025-03-02 23:28 | XR_ITS ---
PROCEDURE INFORMATION: Exam: XR Chest Exam date and time: 03/03/2025 12:10 AM Age: 74 years old Clinical indication: Shortness of breath; Additional info: SOA, copd TECHNIQUE: Imaging protocol: Radiologic exam of the chest. Views: 1 view. COMPARISON: CR XR CHEST PORTABLE 02/27/2025 10:57 AM FINDINGS: Lungs: No consolidation or pulmonary edema. Pleural spaces: No pleural effusion. No pneumothorax. Heart/Mediastinum: The cardiomediastinal silhouette is not enlarged. Likely coronary stent is again noted. Bones/joints: Visualized bones demonstrate no acute abnormality. IMPRESSION: No acute abnormality is identified.
[2025-03-02 23:30] VITALS: BP 203/105; PULSE 84; O2SAT 95
--- NOTE | 2025-03-02 23:30 | [facility].EDGENADL ---
Discharge Plan Disposition Patient Disposition: Admitted Clinical Impressions Clinical Impression: Acute on chronic respiratory failure with hypoxia and hypercapnia, Acute on chronic heart failure with preserved ejection fraction (HFpEF) Discharge ED Provider: Ernesto Lockwood Adult HPI General Chief complaint: Shortness of Breath/Dyspnea Stated complaint: soa Time Seen by Provider: 03/02/25 23:30 Mode of Arrival: EMS Source of Information: Patient and EMS Description of Symptoms (Recalled from ER Triage Doc. by RN): pt presents to the Ed d/t complaints for SOA. pt recently discharged on 02/28. pt has end stage copd. pt has HF and is on blodd thinners History of Present Illness HPI narrative: 74-year-old female with history of COPD, heart failure, hypertension hyperlipidemia presents for shortness of breath. She was discharged a few days ago and has been doing okay until today. Today she felt generally weak and did not really want to eat and that she had sudden onset of severe shortness of breath at home today prior to arrival. Patient is not on oxygen normally but does have 2 L to use as needed. She was on 4 L on EMS arrival and was satting in the 90s. She had accessory muscle use and was dyspneic. Related Data Home Medications ?Medication ?Instructions ?Recorded ?Confirmed atorvastatin 40 mg tablet 40 mg PO HS 12/31/23 02/25/25 clopidogrel 75 mg tablet 75 mg PO DAILY 12/31/23 02/25/25 sertraline 100 mg tablet 200 mg PO DAILY 12/31/23 02/25/25 cyanocobalamin (vitamin B-12) 1,000 mcg PO DAILY 04/02/24 02/25/25 1,000 mcg tablet meloxicam 15 mg tablet 15 mg PO DAILY 01/07/25 02/25/25 montelukast 10 mg tablet 10 mg PO HS 01/07/25 02/25/25 albuterol sulfate 90 mcg/actuation 2 inh inhalation QIDP PRN 02/12/25 02/25/25 aerosol inhaler shortness of breath or wheezing rivastigmine 4.6 mg/24 hour 4.6 mg topical Q48H 02/14/25 02/25/25 transdermal patch carvedilol 25 mg tablet 25 mg PO BIDWMEAL 02/25/25 02/25/25 hydrocodone 7.5 mg-acetaminophen 1 tab PO Q8HP PRN Mild Pain (Scale 02/25/25 02/25/25 325 mg tablet Score 1-4) Previous Rx's ?Medication ?Instructions ?Recorded isosorbide mononitrate 60 mg 60 mg PO DAILY #30 tabs 01/07/25 tablet,extended release 24 hr furosemide 40 mg tablet 40 mg PO DAILY 30 days #30 tabs 01/17/25 empagliflozin 10 mg tablet 10 mg PO DAILY 30 days #30 tabs 02/04/25 (Jardiance) irbesartan 75 mg tablet 75 mg PO DAILY 30 days #30 tabs 02/04/25 spironolactone 25 mg tablet 25 mg PO DAILY 30 days #30 tabs 02/04/25 polyethylene glycol 3350 17 gram 17 g PO DAILY 30 days #30 ea 02/14/25 oral powder packet (HealthyLax) fluticasone fur. 100 mcg-umeclid 1 inh inhalation DAILY 90 days #60 02/20/25 62.5 mcg-vilant 25 mcg ea inhalat.powder (Trelegy Ellipta) ipratropium 0.5 mg-albuterol 3 mg 3 ml inhalation Q6HP PRN shortness 02/21/25 (2.5 mg base)/3 mL nebulization of breath or wheezing 30 days #180 soln mL bupropion HCl 75 mg tablet 75 mg PO BID 30 days #60 tabs 02/27/25 Allergies Allergy/AdvReac Type Severity Reaction Status Date / Time No Known Allergies Allergy Verified 02/20/25 13:44 [facility] Disclaimer: The information contained in this section may have been updated after the patient was seen, as this information can be updated by other users. Medical History (Updated 03/03/25 @ 01:35 by Ernesto Lockwood MD) Elevated troponin Hypocalcemia Hypomagnesemia Thyroid lesion Acidosis Chronic bronchitis Acute exacerbation of CHF (congestive heart failure) Acute exacerbation of chronic obstructive pulmonary disease Ex-smoker Pulmonary cachexia due to chronic obstructive pulmonary disease Acute and chronic respiratory failure with hypercapnia Distressed breathing COPD mixed type CAP (community acquired pneumonia) Other forms of dyspnea Pulmonary hypertension Hyperlipidemia Hypertension Dyspnea Atypical angina Chronic respiratory failure with hypoxia Encounter for screening for malignant neoplasm of lung Smoking greater than 30 pack years Pulmonary emphysema COPD exacerbation BMI less than 19,adult (HFpEF) heart failure with preserved ejection fraction Tobacco dependence Dependence on supplemental oxygen Coronary artery disease Iron deficiency anemia COPD (chronic obstructive pulmonary disease) Surgical History Hx of esophagogastroduodenoscopy History of colonoscopy History of hysterectomy History of heart artery stent S/P cardiac catheterization Family History Father Alzheimer disease Mother Stroke Social History Smoking Status: Former smoker tobacco type: cigarettes packs per day: 1 years smoked: 50 smoking status stop date: 3 years ago alcohol intake: former substance use type: denies use current occupational status: other Travel in the last 8 weeks?: None Other Medical History Have you received the Flu Vaccine for this season: No Have you received the Pneumonia Vaccine: No ROS Obtained: Yes All systems reviewed & no additional complaints except as documented Physical Exam General General appearance: alert and in distress Head Head exam: atraumatic and normocephalic Eye Eye exam: Present normal appearance, PERRL and EOMI ENT ENT exam: Present normal oropharynx and normal external ear exam Neck Neck exam: Present normal inspection and full ROM Chest Chest inspection: Present normal inspection and symmetric chest wall rise; Absent tenderness Respiratory Respiratory exam: Present respiratory distress (Tripoding, minimal air movement at all initially) and accessory muscle use Cardiovascular Cardiovascular exam: Present regular rate and normal rhythm Abdominal Exam Abdominal exam: Present soft; Absent distention, tenderness or guarding Extremities Exam Extremities exam: Present normal inspection; Absent edema or joint swelling Back Exam Back exam: Present normal inspection; Absent tenderness Neurological Exam Neurological exam: Present alert and oriented X3; Absent motor sensory deficit Psychiatric Psychiatric exam: Present anxious Skin Skin exam: Present warm, dry and normal color Lymphatic Lymphatic Findings: no adenopathy Medical Decision Making Medical Records Medical records reviewed: Yes I reviewed the patient's medical records. Screening: Per USPSTF and CDC recommendations, given the prevalence of disease in our region, it is our hospital?s policy to screen for HIV and viral Hepatitis for all patients aged 18 and over and those with ongoing risk factors. Vasquez Inquiry Pt receiving controlled substance: No Vasquez was queried for this patient: No Vital Signs: 03/02/25 23:25 03/02/25 23:30 03/02/25 23:59 Temperature 98.1 F Temperature Source Oral Pulse Rate 84 66 Pulse Rate [Right Radial] 85 Respiratory Rate 22 Blood Pressure 203/105 H 152/77 H Blood Pressure [Right Arm] 202/122 H Blood Pressure Mean 135 108 Blood Pressure Mean [Right Arm] 148 Blood Pressure Position [Right Arm] Supine 02 Sat by Pulse Oximetry 96 95 96 Oxygen Delivery Method Room Air Oxygen Flow Rate (LPM) 2 03/03/25 00:15 03/03/25 00:20 03/03/25 00:40 Temperature Temperature Source Pulse Rate 77 75 74 Pulse Rate [Right Radial] Respiratory Rate 16 14 Blood Pressure 152/66 H 146/69 H Blood Pressure [Right Arm] Blood Pressure Mean 94 101 Blood Pressure Mean [Right Arm] Blood Pressure Position [Right Arm] 02 Sat by Pulse Oximetry 93 L 94 L Oxygen Delivery Method Nasal Cannula Oxygen Flow Rate (LPM) 2 2 03/03/25 01:00 03/03/25 01:20 Temperature Temperature Source Pulse Rate 71 68 Pulse Rate [Right Radial] Respiratory Rate Blood Pressure 124/67 137/72 Blood Pressure [Right Arm] Blood Pressure Mean Blood Pressure Mean [Right Arm] Blood Pressure Position [Right Arm] 02 Sat by Pulse Oximetry 96 96 Oxygen Delivery Method Oxygen Flow Rate (LPM) Lab Data Lab results reviewed: Yes I reviewed the patient's lab results. Lab Results 03/02/25 23:28: WBC 10.7, RBC 4.24, Hgb 10.6 L, Hct 35.1 L, MCV 82.8, MCH 25.0 L, MCHC 30.2 L, RDW 22.9 H, Plt Count 288 D, MPV 10.0, Neut % (Auto) 64.0, Lymph % (Auto) 17.7, [place] % (Auto) 7.0, Eos % (Auto) 10.7, Baso % (Auto) 0.2, Neut # (Auto) 6.9, Lymph # (Auto) 1.9, [place] # (Auto) 0.8, Eos # (Auto) 1.1 H, Baso # (Auto) 0.0, Sodium 138, Potassium 3.7, Chloride 100, Carbon Dioxide 35 H, Anion Gap 6.7, BUN 15, Creatinine 1.00, Estimated Creat Clear 40, Estimated GFR 54 L, Est GFR ( Amer) 65, Glucose 105 H, Calcium 8.6, Total Bilirubin 0.4, AST 25, ALT 15, Alkaline Phosphatase 111, Troponin I 0.01, NT-Pro-B Natriuret Pep 4860 H, Total Protein 6.5, Albumin 3.9, Globulin 2.6, Albumin/Globulin Ratio 1.5 03/02/25 23:28 03/02/25 23:28 Orders (Tests/Meds): ED MEDICATIONS Generic Name Dose Route Start Last Admin Trade Name Freq PRN Reason Stop Dose Admin Nitroglycerin 0.4 mg 03/02/25 23:28 03/03/25 00:01 Nitroglycerin 0.4mg Sl Tablet SL 04/01/25 23:27 0.4 mg Q5MINP PRN Administration Chest Pain Discontinued Medications Generic Name Dose Route Start Last Admin Trade Name Freq PRN Reason Stop Dose Admin Albuterol/Ipratropium 9 ml 03/02/25 23:28 03/03/25 00:13 Ipratropium/Albuterol 3 Ml Neb IH 03/02/25 23:29 9 ml ONCE ONE Administration Furosemide 80 mg 03/03/25 00:07 03/03/25 00:15 Furosemide 40mg/4ml Vial IV 03/03/25 00:08 80 mg ONCE ONE Administration Magnesium Sulfate 2 gm in 50 mls @ 150 mls/hr 03/02/25 23:28 03/02/25 23:37 Magnesium Sulfate 2gm/50ml Premix IV 03/02/25 23:47 150 mls/hr ONCE ONE Administration Methylprednisolone Sodium Succinate 125 mg 03/02/25 23:28 03/02/25 23:37 Methylprednisolone Sod Succ 125mg Vial IV 03/02/25 23:29 125 mg ONCE ONE Administration ORDERS Category Date Time Status CXR --portable [XR chest portable] Stat Exams 03/02/25 23:28 Completed BNP [NT Pro Brain Natriuretic Pep.] Stat Lab 03/02/25 23:28 Completed CBC w/Auto Diff [Complete Blood Count Auto Diff] Stat Lab 03/02/25 23:28 Completed CMP [Comprehensive Metabolic Panel] Stat Lab 03/02/25 23:28 Completed Lactate Venous Stat Lab 03/02/25 23:35 Ordered Troponin I Q3H Lab 03/02/25 23:28 Completed Troponin I Q3H Lab 03/03/25 02:30 Ordered VBG [Venous Blood Gas] Stat RT 03/02/25 23:33 Received HEART Score History (anamnesis): Slightly suspicious ECG: Non-specific disturbance Age: >65 years Risk factors: 3 or more risk factors Troponin: </= normal limit HEART Score: 5 Medical Decision Narrative: 74-year-old female with history of COPD, heart failure, hypertension presents for respiratory distress. History was obtained via interactive discussion with patient, EMS. On arrival, patient is afebrile, hypertensive, satting in the 90s on 4 L nasal cannula, moving all extremities spontaneously. Full physical exam performed and significant for severe respiratory distress, patient tripoding, moving minimal air at all initially. Unable to speak secondary to dyspnea. Differential includes but is not limited to COPD exacerbation, scape, ammonia, pneumothorax, heart failure Patient was given 125 Solu-Medrol, 2 g IV mag, nitro, Lasix 3 [id number] DuoNeb's for symptomatic management and correction of underlying abnormalities. Workup initiated including CBC CMP troponin chest x-ray EKG BNP. On re-evaluation, patient is significantly improved but is still having some increased work of breathing, now has wheezing throughout and prolonged expiratory phase, but this is improved from minimal air movement earlier. Laboratory workup independently interpreted by me and significant for VBG with pH 7.36, PCO2 51.9, normal lactate. No significant leukocytosis noted, normal renal function.. Imaging independently interpreted by me and significant for mild hyperinflation, no opacity or pneumothorax, mild edema. See radiology read for full review of final results. EKG independently interpreted by me and significant for sinus rhythm, rate of 78, mild ST depressions in the precordial leads. Given patient history, exam and workup, patient's presentation most likely represents mixed COPD exacerbation and heart failure. Patient's blood pressure is significantly improved after nitro and mag. Given her persistent abnormal lung sounds and increased work of breathing, I think patient would benefit from admission for further management. Interactive discussion was had with hospitalist on-call for admission.. Procedures Risk/Benefits of Procedure(s) Were Explained: Yes Critical Care Critical Care Time Critical Care Time: Yes Attestation: On 03/02/25, the high probability of a clinically significant, sudden or life threatening deterioration of the following system(s) required my full and direct attention, intervention and personal management. The time I documented below is in addition to time spent performing reported procedures but includes the following listed in this critical care notation. Total Time Total Critical Care Time: 40
[2025-03-02] MEDS: NITROGLYCERIN 0.4MG SL TABLET 0.4 MG SL (23:37)
[2025-03-02] MEDS: MAGNESIUM SULFATE IN WATER 2 GM/50 ML PIGGYBACK IV (23:37)
[2025-03-02] MEDS: METHYLPREDNISOLONE SOD SUCC 125MG VIAL 125 MG IV (23:37)
[2025-03-02 23:39] LABS: Hematocrit 35.1 % (37.0-47.0); Hemoglobin 10.6 g/dL (12.2-16.2); Immature Granulocytes % 0.4 %; Mean Corpuscular HGB Conc 30.2 g/dL (31.8-35.4); Mean Corpuscular Hemoglobin 25.0 pg (27.0-31.2); Mean Corpuscular Volume 82.8 fl (81-99); Nucleated Red Blood Cells % 0 %; Platelet Count 288 K/mm3 (142-424); Red Blood Count 4.24 M/mm3 (4.20-5.40); Red Cell Distribution Width-SD 68.8 fL; White Blood Count 10.7 K/mm3 (4.8-10.8)
[2025-03-02 23:40] LABS: VBG PH 7.37 mmol/L (7.31-7.41)
[2025-03-02 23:41] LABS: Lactate Venous 1.8 mmol/L (0.4-2.0); VBG HCO3 29.3 mmol/L (23-30); VBG PCO2 51.9 mmol/L (35-51); VBG PO2 64.1 mmol/L (28-40)
[2025-03-02 23:43] LABS: Albumin Level 3.9 g/dl (3.5-5.0); Chloride 100 mmol/L (98-107); Potassium 3.7 mmoL/L (3.5-5.1); Sodium 138 mmol/L (136-145)
[2025-03-02 23:46] LABS: Alanine Aminotransferase 15 U/L (12-78); Albumin/Globulin Ratio 1.5 (1.1-1.8); Alkaline Phosphatase 111 U/L (38-126); Anion Gap 6.7 mEq/L (5-15); Aspartate Amino Transferase 25 U/L (14-36); Bilirubin,Total 0.4 mg/dl (0.2-1.3); Blood Urea Nitrogen 15 mg/dl (7-17); Calcium 8.6 mg/dl (8.4-10.2); Carbon Dioxide 35 mmol/L (22.0-30.0); Creatinine Clearance Estimated 40 mL/min (50-200); Creatinine,Serum 1.00 mg/dl (0.52-1.04); Estimated Glomerular Filt Rate 54 ml/min (>60); GFR (African American) 65 ML/MIN (>60); Globulin 2.6 g/dL (1.3-3.2); Glucose 105 mg/dl (74-100); Total Protein,Serum 6.5 g/dl (6.3-8.2)
[2025-03-02 23:59] VITALS: BP 152/77; PULSE 66; O2SAT 96
[2025-03-03] VITALS (20 sets, daily range): BP systolic 76–152; BP diastolic 37–78; PULSE 65–87; RESP 14–27; TEMP 36.3–37.4; O2SAT 90–100; BMI 20.7
[2025-03-03] MEDS: NITROGLYCERIN 0.4MG SL TABLET 0.4 MG SL (00:01)
[2025-03-03 00:02] LABS: NT Pro Brain Natriuretic Pep. 4860 pg/mL (0-450)
[2025-03-03 00:05] LABS: Troponin I 0.01 ng/ml (0.00-0.034)
[2025-03-03] MEDS: IPRATROPIUM/ALBUTEROL 3 ML NEB 9 ML IH (00:13)
[2025-03-03] MEDS: FUROSEMIDE 40MG/4ML VIAL 80 MG IV (00:15)
--- NOTE | 2025-03-03 01:28 | EXP.HP ---
History of Present Illness *Admission Date: 03/03/25 *Reason for visit:: Shortness of breath *History of present illness: Loreta Santiago is a 74-year-old female with medical history significant for severe emphysema/COPD on 2L as needed, HFpEF, hypertension, iron deficiency anemia, mood disorder who presents with acute onset dyspnea that began last night. Patient states she felt weak yesterday without significant symptom burden until later in the evening when she began to have worsening shortness of breath. Her daughter apparently thought her face was turning blue at which point EMS was called. Of note, patient was recently discharged from our facility 4 days ago in stable condition. She was treated for COPD and HFpEF exacerbation and discharged on room air. She states she has been taking her medications at home, including Trelegy and Lasix. Additionally, she states she has been having nonproductive cough over the past few days. No recent changes in lifestyle, no new pets, relocation. No recent sick contacts. Denies fever/chills, chest pain. Workup in the ED significant for unremarkable VBG showing mild chronic hypercapnia, CXR showing slightly worsening interstitial infiltrates compared to last CXR 3 days ago, BNP 4860. Otherwise CBC, CMP unremarkable. Patient was given DuoNebs x 3, Solu-Medrol, Lasix 80 mg but continued to have increased work of breathing, accessory muscle use, and apparent restricted airway. She was requiring 2 L at this time. Case discussed with ED provider and decision was made to admit patient for further evaluation of acute on chronic hypoxic respiratory failure. [facility] Disclaimer: The information contained in this section may have been updated after the patient was seen, as this information can be updated by other users. Medical History (Updated 03/03/25 @ 06:25 by Mihai Son MD) Elevated troponin Hypocalcemia Hypomagnesemia Thyroid lesion Acidosis Chronic bronchitis Acute exacerbation of CHF (congestive heart failure) Acute exacerbation of chronic obstructive pulmonary disease Ex-smoker Pulmonary cachexia due to chronic obstructive pulmonary disease Acute and chronic respiratory failure with hypercapnia Distressed breathing COPD mixed type CAP (community acquired pneumonia) Other forms of dyspnea Pulmonary hypertension Hyperlipidemia Hypertension Dyspnea Atypical angina Chronic respiratory failure with hypoxia Encounter for screening for malignant neoplasm of lung Smoking greater than 30 pack years Pulmonary emphysema COPD exacerbation BMI less than 19,adult (HFpEF) heart failure with preserved ejection fraction Tobacco dependence Dependence on supplemental oxygen Coronary artery disease Iron deficiency anemia COPD (chronic obstructive pulmonary disease) Surgical History Hx of esophagogastroduodenoscopy History of colonoscopy History of hysterectomy History of heart artery stent S/P cardiac catheterization Family History Father Alzheimer disease Mother Stroke Social History (Updated 03/03/25 @ 02:37 by Rochelle Wylie RN) Smoking Status: Former smoker tobacco type: cigarettes packs per day: 1 years smoked: 50 smoking status stop date: 3 years ago alcohol intake: former substance use type: denies use current occupational status: other Travel in the last 8 weeks?: None Contact w/someone who lives/traveled outside [place] past 30 days?: No Exposure to someone with infectious disease in past 14 days?: No Do you have a fever (greater than 100.4 F or 38 C)?: No Have you tested positive for COVID-19?: No Exposed to someone with COVID-19 in past 14 days?: No Do you have a sore throat?: No Do you have a cough?: No Do you have any weakness?: No Are you experiencing any nausea/vomitting?: No Do you have any diarrhea?: No Are you experiencing any unusual bleeding?: No Do you have any muscle aches/pain?: No Do you have any abdominal pain?: No Are you experiencing loss of taste or smell?: No Other Medical History Have you received the Flu Vaccine for this season: No Have you received the Pneumonia Vaccine: No Meds Home Medications and Allergies Home Medications ?Medication ?Instructions ?Recorded ?Confirmed ?Type atorvastatin 40 mg tablet 40 mg PO HS 12/31/23 03/03/25 History clopidogrel 75 mg tablet 75 mg PO DAILY 12/31/23 03/03/25 History sertraline 100 mg tablet 200 mg PO DAILY 12/31/23 03/03/25 History cyanocobalamin (vitamin B-12) 1,000 mcg PO DAILY 04/02/24 03/03/25 History 1,000 mcg tablet isosorbide mononitrate 60 mg 60 mg PO DAILY #30 tabs 01/07/25 03/03/25 Rx tablet,extended release 24 hr meloxicam 15 mg tablet 15 mg PO DAILY 01/07/25 03/03/25 History montelukast 10 mg tablet 10 mg PO HS 01/07/25 03/03/25 History furosemide 40 mg tablet 40 mg PO DAILY 30 days #30 tabs 01/17/25 03/03/25 Rx empagliflozin 10 mg tablet 10 mg PO DAILY 30 days #30 tabs 02/04/25 02/25/25 Rx (Jardiance) irbesartan 75 mg tablet 75 mg PO DAILY 30 days #30 tabs 02/04/25 03/03/25 Rx spironolactone 25 mg tablet 25 mg PO DAILY 30 days #30 tabs 02/04/25 03/03/25 Rx albuterol sulfate 90 mcg/actuation 2 inh inhalation QIDP PRN 02/12/25 03/03/25 History aerosol inhaler shortness of breath or wheezing polyethylene glycol 3350 17 gram 17 g PO DAILY 30 days #30 ea 02/14/25 03/03/25 Rx oral powder packet (HealthyLax) rivastigmine 4.6 mg/24 hour 4.6 mg topical Q48H 02/14/25 03/03/25 History transdermal patch fluticasone fur. 100 mcg-umeclid 1 inh inhalation DAILY 90 days #60 02/20/25 03/03/25 Rx 62.5 mcg-vilant 25 mcg ea inhalat.powder (Trelegy Ellipta) ipratropium 0.5 mg-albuterol 3 mg 3 ml inhalation Q6HP PRN shortness 02/21/25 03/03/25 Rx (2.5 mg base)/3 mL nebulization of breath or wheezing 30 days #180 soln mL carvedilol 25 mg tablet 25 mg PO BIDWMEAL 02/25/25 03/03/25 History hydrocodone 7.5 mg-acetaminophen 1 tab PO Q8HP PRN Mild Pain (Scale 02/25/25 03/03/25 History 325 mg tablet Score 1-4) bupropion HCl 75 mg tablet 75 mg PO BID 30 days #60 tabs 02/27/25 03/03/25 Rx New Prescriptions to Start Prescriptions: Allergies Allergy/AdvReac Type Severity Reaction Status Date / Time No Known Allergies Allergy Verified 02/20/25 13:44 Exam Data for Last 24 hours Vital signs and Labs for Last 24 Hours: Temp Pulse Resp BP Pulse Ox O2 Del Method O2 Flow Rate 98.1 F 68 14 137/72 96 Nasal Cannula 2 03/02/25 23:25 03/03/25 01:20 03/03/25 00:40 03/03/25 01:20 03/03/25 01:20 03/03/25 00:20 03/03/25 00:40 Laboratory Results - last 24 hr 03/02/25 23:28: WBC 10.7, RBC 4.24, Hgb 10.6 L, Hct 35.1 L, MCV 82.8, MCH 25.0 L, MCHC 30.2 L, RDW 22.9 H, Plt Count 288 D, MPV 10.0, Neut % (Auto) 64.0, Lymph % (Auto) 17.7, [place] % (Auto) 7.0, Eos % (Auto) 10.7, Baso % (Auto) 0.2, Neut # (Auto) 6.9, Lymph # (Auto) 1.9, [place] # (Auto) 0.8, Eos # (Auto) 1.1 H, Baso # (Auto) 0.0, Sodium 138, Potassium 3.7, Chloride 100, Carbon Dioxide 35 H, Anion Gap 6.7, BUN 15, Creatinine 1.00, Estimated Creat Clear 40, Estimated GFR 54 L, Est GFR ( Amer) 65, Glucose 105 H, Calcium 8.6, Total Bilirubin 0.4, AST 25, ALT 15, Alkaline Phosphatase 111, Troponin I 0.01, NT-Pro-B Natriuret Pep 4860 H, Total Protein 6.5, Albumin 3.9, Globulin 2.6, Albumin/Globulin Ratio 1.5 I & O for Last 24 hours: Intake & Output 02/28/25 03/01/25 03/02/25 03/03/25 23:59 23:59 23:59 23:59 Weight 52.163 kg Constitutional Constitutional: no acute distress *Routine HEENT Exam Head: Present normocephalic Eye: Present EOMI and PERRL ENT: Present mucous membranes moist *Routine Neck Exam Neck: Present supple; Absent lymphadenopathy *Routine Respiratory Exam Respiratory: Absent CTA bilaterally Comments: Diminished right lung sounds. *Routine Cardiovascular Exam Cardiovascular: Present RRR *Routine Abdominal Exam Abdominal: Present soft and normoactive bowel sounds; Absent tenderness *Routine Rectal Exam Rectal:: deferred *Routine Genitalia Exam Genitalia:: deferred *Routine Extremities Exam Extremities: Absent cyanosis, clubbing or edema *Routine Skin Exam Skin: Present warm; Absent rash *Routine Neurological Exam Neurological: Present alert and oriented X3 Assessment and Plan *Assessment and plan (1) Acute on chronic heart failure with preserved ejection fraction (HFpEF): Status: Acute Category: Medical Code(s): I50.33 - Acute on chronic diastolic (congestive) heart failure (2) Flash pulmonary edema: Status: Acute Category: Medical Code(s): J81.0 - Acute pulmonary edema (3) Hypertensive emergency: Status: Acute Category: Medical Code(s): I16.1 - Hypertensive emergency (4) Anxiety: Status: Acute Category: Medical Code(s): F41.9 - Anxiety disorder, unspecified Plan Loreta Santiago is a 74-year-old female with medical history significant for severe emphysema/COPD on 2L as needed, HFpEF, hypertension, iron deficiency anemia, mood disorder who presents with acute onset dyspnea that began last night. Patient states she felt weak yesterday without significant symptom burden until later in the evening when she began to have worsening shortness of breath. Her daughter apparently thought her face was turning blue at which point EMS was called. Of note, patient was recently discharged from our facility 4 days ago in stable condition. She was treated for COPD and HFpEF exacerbation and discharged on room air. She states she has been taking her medications at home, including Trelegy and Lasix. Additionally, she states she has been having nonproductive cough over the past few days. No recent changes in lifestyle, no new pets, relocation. No recent sick contacts. Denies fever/chills, chest pain. Workup in the ED significant for unremarkable VBG showing mild chronic hypercapnia, CXR showing slightly worsening interstitial infiltrates compared to last CXR 3 days ago, BNP 4860. Otherwise CBC, CMP unremarkable. Patient was given DuoNebs x 3, Solu-Medrol, Lasix 80 mg but continued to have increased work of breathing, accessory muscle use, and apparent restricted airway. She was requiring 2 L at this time. Case discussed with ED provider and decision was made to admit patient for further evaluation of acute on chronic hypoxic respiratory failure. #Acute on chronic hypoxic respiratory failure #Suspected HFpEF exacerbation, flash pulmonary edema #Hypertensive emergency #COPD #Possible aspiration pneumonitis #Possible vocal cord dysfunction ? Patient presents with acute onset dyspnea, apparent cyanotic face at home. Has had multiple similar presentations in the past 2 months. ? Given recurrent similar presentations, there is some suspicion of aspiration and/or vocal cord dysfunction. ? However, acute HFpEF with flash pulmonary edema could also be at play. Presented with BP 200/120s and personal review of CXR which showed a slightly worsened interstitial opacities compared to previous. Patient feels significantly better after IV Lasix 80 mg given in the ED. Has had -1500 mL output. Patient also presented previously with very high blood pressures, SBP's in 180s to 200s. ? ECHO 02/12/2025 revealed normal biventricular systolic function, and no significant diastolic dysfunction. LVEF 55%. ? Continue IV Lasix 40 mg twice daily, spironolactone 25 mg, Jardiance 10 mg. BP improved with diuresis, currently 131/66. ? Increased irbesartan from 75 to 150 mg. Continue home carvedilol 25 mg twice daily, Imdur 60 mg, spironolactone 25 mg. ? Uncontrolled hypertension could also be sequela of known uncontrolled anxiety at home. See separate problem. ? Speech therapy consulted, pending further recommendations. N.p.o. until evaluation. ? ENT evaluation previously recommended by pulmonology for possible vocal cord paralysis. Since there is evidence of flash pulmonary edema, will defer this as outpatient evaluation unless pulmonology recommends inpatient evaluation. ? Resume home Trelegy, DuoNebs every 6 hours scheduled. Will hold off on Pulmicort, steroids at this time pending pulmonology evaluation. Low concern for COPD exacerbation. ? Follow-up respiratory panel. ? Pulmonology consulted, pending further recommendations. ? Cardiology consulted, pending further recommendations. ? Follow-up morning CMP. ? Follow-up morning CXR. #Uncontrolled anxiety ? Patient has known uncontrolled anxiety, takes sertraline 200 mg daily and was started on bupropion 75 mg twice daily on last admission. Possibly contributing to uncontrolled hypertension at home. ? Will switch sertraline to Lexapro 20 mg, discontinue bupropion as it can worsen anxiety. ? Started buspirone 5 mg 3 times daily, hydroxyzine 25 mg 3 times daily as needed. ? Will need close follow-up with psychiatry outpatient. #Iron deficient anemia ? Patient has known iron deficient anemia, will continue to monitor. ? Continue weekly infusions of Venofer, next appointment on 03/05/2025 at 11 AM. ? Hemoglobin 10.6, MCV 82.8. Stable. Full code DVT prophylaxis: Lovenox 40 mg
[2025-03-03 02:42] LABS: Troponin I 0.02 ng/ml (0.00-0.034)
--- NOTE | 2025-03-03 06:20 | XR_ITS ---
FINAL REPORT CLINICAL HISTORY: Follow-up interstitial findings after diuresis COMPARISON: 6 hours prior FINDINGS: A portable view of the chest was obtained. Cardiac and mediastinal silhouettes are within normal limits. No significant interval change in mild increased interstitial markings. There is underlying emphysema. There is no pleural effusion or pneumothorax. IMPRESSION: No significant change. Reviewed, Interpreted and Dictated by Lawanda Singer MD Transcribed by Yue Prieto Authenticated and [facility]
[2025-03-03] MEDS: IPRATROPIUM/ALBUTEROL 3 ML NEB IH ×3 (06:22→18:07)
[2025-03-03 07:12] LABS: Hematocrit 35.6 % (37.0-47.0); Hemoglobin 10.9 g/dL (12.2-16.2); Immature Granulocytes % 0.4 %; Mean Corpuscular HGB Conc 30.6 g/dL (31.8-35.4); Mean Corpuscular Hemoglobin 24.9 pg (27.0-31.2); Mean Corpuscular Volume 81.5 fl (81-99); Nucleated Red Blood Cells % 0 %; Platelet Count 299 K/mm3 (142-424); Red Blood Count 4.37 M/mm3 (4.20-5.40); Red Cell Distribution Width-SD 67.3 fL; White Blood Count 12.4 K/mm3 (4.8-10.8)
[2025-03-03 07:34] LABS: Alanine Aminotransferase 16 U/L (12-78); Albumin Level 4.2 g/dl (3.5-5.0); Albumin/Globulin Ratio 1.8 (1.1-1.8); Alkaline Phosphatase 115 U/L (38-126); Anion Gap 10.5 mEq/L (5-15); Aspartate Amino Transferase 31 U/L (14-36); Bilirubin,Total 0.3 mg/dl (0.2-1.3); Blood Urea Nitrogen 15 mg/dl (7-17); Calcium 8.7 mg/dl (8.4-10.2); Carbon Dioxide 34 mmol/L (22.0-30.0); Chloride 95 mmol/L (98-107); Creatinine Clearance Estimated 35 mL/min (50-200); Creatinine,Serum 1.10 mg/dl (0.52-1.04); Estimated Glomerular Filt Rate 48 ml/min (>60); GFR (African American) 59 ML/MIN (>60); Globulin 2.3 g/dL (1.3-3.2); Glucose 154 mg/dl (74-100); Magnesium 1.8 mg/dl (1.6-2.3); Potassium 3.5 mmoL/L (3.5-5.1); Sodium 136 mmol/L (136-145); Total Protein,Serum 6.5 g/dl (6.3-8.2)
--- NOTE | 2025-03-03 08:20 | HMH.PHAINT1 ---
Pharmacy Intervention Comments: MEDICATION RECONCILIATION COMPLETED ON PATIENT USING EXTERNAL FILL HISTORY FROM PHARMACY AND DISCHARGE SUMMARY FROM PREVIOUS ADMISSION. -MORENITA PIERCE, VERONICAD
[2025-03-03 09:51] LABS: Adenovirus,PCR Not Detected (NotDetected); Chlamydophila Pneumoniae, PCR Not Detected (NotDetected); Coronavirus 19, PCR Not Detected (NotDetected); Coronovirus HKU1,PCR Not Detected (NotDetected); Influenza A, PCR Not Detected (NotDetected); Influenza AH1, 2009 Not Detected (NotDetected); Influenza AH1, PCR Not Detected (NotDetected); Influenza AH3,PCR Not Detected (NotDetected); Influenza B, PCR Not Detected (NotDetected); Mycoplasma Pneumoniae, PCR Not Detected (NotDetected); Parainfluenza 1, PCR Not Detected (NotDetected); Parainfluenza 2, PCR Not Detected (NotDetected); Parainfluenza 3, PCR Not Detected (NotDetected); Parainfluenza 4, PCR Not Detected (NotDetected)
--- NOTE | 2025-03-03 09:58 | HMH.OTEV ---
OT Inpatient Evaluation Rehab OT IP Evaluation Start: 03/03/25 02:44 Freq: ONCE Status: Active Protocol: Document 03/03/25 09:53 [facility] (Rec: 03/03/25 09:58 [facility] [id number]) Rehab OT IP Assessment Subjective History Pt oriented x 3 on arrival. Pt agreeable to engage in therapy evaluation. Pt admitted on 03/03/25 due to COPD exacerbation. History and physical: Loreta Santiago is a 74-year-old female with medical history significant for severe emphysema/COPD on 2L as needed, HFpEF, hypertension, iron deficiency anemia, mood disorder who presents with acute onset dyspnea that began last night. Patient states she felt weak yesterday without significant symptom burden until later in the evening when she began to have worsening shortness of breath. Her daughter apparently thought her face was turning blue at which point EMS was called . Of note, patient was recently discharged from our facility 4 days ago in stable condition. She was treated for COPD and HFpEF exacerbation and discharged on room air. She states she has been taking her medications at home, including Trelegy and Lasix. Additionally, she states she has been having nonproductive cough over the past few days. No recent changes in lifestyle, no new pets, relocation. No recent sick contacts. Denies fever/chills, chest pain. Workup in the ED significant for unremarkable VBG showing mild chronic hypercapnia, CXR showing slightly worsening interstitial infiltrates compared to last CXR 3 days ago, BNP 4860. Otherwise CBC, CMP unremarkable . Patient was given DuoNebs x 3, Solu-Medrol, Lasix 80 mg but continued to have increased work of breathing, accessory muscle use, and apparent restricted airway. She was requiring 2 L at this time. Case discussed with ED provider and decision was made to admit patient for further evaluation of acute on chronic hypoxic respiratory failure. Subjective Prior to being in the hospital, pt lived at home with her daughter. Pt reports normally she is independent with all ADLs. She is dependent upon daughter for completion of IADLs. Pt does use a rollator during functional transfers. Pt also uses oxygen at all times. Objective Patient Orientation Person,Place,Birthday Right Upper WFL Extremity Gross ROM Left Upper Extremity WFL Gross ROM Bed Mobility bed mobility-scooting,bed mobility - supine/sit,bed mobility - rolling Assist Level Contact Guard/Hand Hold Transfer Training Sit/Stand Transfer Assist Level Minimal x 1 (25% assist) Chair Transfer Rolling Walker Assistive Devices Rehab OT IP prob,goals,plan Problems Date of Evaluation: 03/03/25 OT IP Problems Bed Mobility,Transfers,Balance,Self care,Safety Rehab Potential Rehab Potential Good Equipment Needs Assistive Devices Rolling / Wheeled Walker Plan OT intervention Plan Bed Mobility,Transfers,Balance,Self care,Safety, Therapeutic Exercise OT Plan Frequency Daily Duration LOS Discharge Goals Bed Mobility Ability Standby Assistance Sit to Stand Chair Supervision/Stand by Transfer Ability Chair Transfer Supervision/Stand by Ability Chair Transfer Sit to/from Ambulatory Technique Chair Transfer Rolling Walker Assistive Devices Lower Body Dressing Minimal Assistance Ability Upper Body Dressing Standby Assistance Ability Performing Toilet Contact Guard Hygiene Ability Overall Commode/ Standby Assistance,Contact Guard Toilet Transfer Ability Commode/Toilet Sit to/from Ambulatory Transfer Technique Discharge Plan OT Discharge Plan Pt will continue to be seen for OT services while at [facility]. Pt can return home with daughter's assistance as needed. Therapist does recommend OT evaluation upon returning home for continued skilled therapy services. Continued therapy services is important in order for patient to improve strength, safety, endurance, ADL independence, and functional transfers to reach PLOF. Eval Complexity Eval Charge Codes 17839 - Moderate Complexity PHYSICIAN CERTIFICATION: I certify the specified therapy services for Loreta Santiago are required, authorized, and reviewed every 30 days.
[2025-03-03] MEDS: SPIRONOLACTONE 25MG TABLET 25 MG PO (10:04)
[2025-03-03] MEDS: ISOSORBIDE MONO 60MG TAB.ER.24H 60 MG PO (10:05)
[2025-03-03] MEDS: CLOPIDOGREL 75MG TAB 75 MG PO (10:05)
[2025-03-03] MEDS: IRBESARTAN 150MG TAB 150 MG PO (10:05)
[2025-03-03] MEDS: FUROSEMIDE 40MG/4ML VIAL 40 MG IV (10:06)
[2025-03-03] MEDS: EMPAGLIFLOZIN 10MG TABLET 10 MG PO (10:07)
[2025-03-03] MEDS: CARVEDILOL 25MG TABLET 25 MG PO (10:07)
[2025-03-03] MEDS: ESCITALOPRAM 20MG TABLET 20 MG PO (10:07)
[2025-03-03] MEDS: BUSPIRONE HCL 5 MG TABLET PO ×2 (10:07→20:07)
[2025-03-03] MEDS: POLYETHYLENE GLYCOL 3350 17 GM PACKET PO (10:08)
--- NOTE | 2025-03-03 10:18 | HMH.PTEV ---
Physical Therapy Evaluation Rehab PT IP Evaluation Start: 03/03/25 02:44 Freq: ONCE Status: Active Protocol: Document 03/03/25 10:10 [facility] (Rec: 03/03/25 10:18 [facility] [id number]) Subjective/History History History 74-year-old female with medical history significant for severe emphysema/COPD on 2L as needed, HFpEF, hypertension, iron deficiency anemia, mood disorder who presents with acute onset dyspnea that began last night. Patient states she felt weak yesterday without significant symptom burden until later in the evening when she began to have worsening shortness of breath. Her daughter apparently thought her face was turning blue at which point EMS was called. Of note, patient was recently discharged from our facility 4 days ago in stable condition. She was treated for COPD and HFpEF exacerbation and discharged on room air. Subjective Subjective Pt reports feeling short of air, but otherwise no c/o. Agrees to mobility assessment. [facility] How much help from another person do you currently need... Turning from your None back to your side while in a flat bed without using bedrails? Moving from lying on None back to sitting on the side of a flat bed without using bedrails? Moving to and from a A little bed to a chair ( including a wheelchair)? Standing up from a A little chair using your arms? (e.g., wheelchair, bedside chair) Walking in hospital A little room? Climbing 3-5 steps A little with a railing? Mobility Score 20 Mobility Level [facility] Mobility 6 Walk 10 steps or more Mobility Calculator Rehab PT IP Eval Objective Appearance Patient Behavior Appropriate Patient Orientation Person,Place,Time Difficulty following none instructions Speech Pattern Clear Ambulation Patient Able to Yes Ambulate Ambulation Observation IP General Gait Shuffling Step Pattern Observation Ambulation Distance 4 (feet) Ambulation Assistive Rolling Walker Device Ambulation Ability Contact Guard/Hand Hold Balance Ability to Arise Able, uses arms to help Sitting Balance Steady, safe Standing Balance Steady, wide stance Dynamic Sitting Good Balance Ability Dynamic Standing Fair Balance Ability Transfers Bed Transfer Ability Independent Chair Transfer Contact Guard/Hand Hold Ability Sit to Stand Bed Contact Guard/Hand Hold Transfer Ability Sit to Stand Chair Contact Guard/Hand Hold Transfer Ability Rehab PT IP prob,goals,plan Problems Date of Evaluation: 03/03/25 PT IP Problems Transfers,Gait Rehab Potential Rehab Potential Good Plan PT Intervention Plan Transfers,Gait,Therapeutic Exercise PT Plan Frequency Daily Duration LOS Discharge Goals Sit to Stand Chair Supervision/Stand by Transfer Ability Ambulation Assistive Rolling Walker Device Ambulation Distance 20 (feet) Discharge Plan PT Discharge Plan Pt is currently appropriate to return home with family assist as needed. Skilled acute therapy is indicated in order to improve endurance to activity and ambulation in order to return pt to [facility]. Eval Complexity Eval Charge Codes 61418 - High Complexity PHYSICIAN CERTIFICATION: I certify the specified therapy services for oLreta Santiago are required, authorized, and reviewed every 30 days.
--- NOTE | 2025-03-03 10:25 | EXP.CARD.CON ---
History of Present Illness History of Present Illness Consult date: 03/03/25 Requesting physician: Juan Manuel Stringer Consult reason: shortness of breath Chief complaint: soa History of present illness: This is a 74-year-old white female with a past medical history of severe emphysema/COPD on 2 L as needed, HFpEF, hypertension, iron deficiency anemia and mood disorder who presented to emergency department last night with complaints of worsening shortness of breath. Patient reports generalized weakness yesterday until last night when symptoms became worse. Daughter reported patient appeared to be turning blue when she got to her house. Patient was recently a patient at our facility and discharged home 4 days ago in stable condition after admission for COPD exacerbation and HFpEF. EKG upon presentation to ER showed normal sinus rhythm at a rate of [address] changes. X-ray showed no acute abnormalities identified. BNP on presentation was 4860. Patient was given DuoNebs x 3, Solu-Medrol and Lasix 80 mg in ED and admitted for further evaluation. Patient has diuresed almost 2 L this morning and reports she is feeling better. Denies chest pain. Echocardiogram from 02/28 showed normal biventricular systolic function with mild biatrial dilation and mild MR. PFSH [facility] Disclaimer: The information contained in this section may have been updated after the patient was seen, as this information can be updated by other users. Medical History (Updated 03/03/25 @ 06:25 by Mihai Son MD) Elevated troponin Hypocalcemia Hypomagnesemia Thyroid lesion Acidosis Chronic bronchitis Acute exacerbation of CHF (congestive heart failure) Acute exacerbation of chronic obstructive pulmonary disease Ex-smoker Pulmonary cachexia due to chronic obstructive pulmonary disease Acute and chronic respiratory failure with hypercapnia Distressed breathing COPD mixed type CAP (community acquired pneumonia) Other forms of dyspnea Pulmonary hypertension Hyperlipidemia Hypertension Dyspnea Atypical angina Chronic respiratory failure with hypoxia Encounter for screening for malignant neoplasm of lung Smoking greater than 30 pack years Pulmonary emphysema COPD exacerbation BMI less than 19,adult (HFpEF) heart failure with preserved ejection fraction Tobacco dependence Dependence on supplemental oxygen Coronary artery disease Iron deficiency anemia COPD (chronic obstructive pulmonary disease) Surgical History Hx of esophagogastroduodenoscopy History of colonoscopy History of hysterectomy History of heart artery stent S/P cardiac catheterization Family History Father Alzheimer disease Mother Stroke Social History (Updated 03/03/25 @ 02:37 by Rochelle Wylie RN) Smoking Status: Former smoker tobacco type: cigarettes packs per day: 1 years smoked: 50 smoking status stop date: 3 years ago alcohol intake: former substance use type: denies use current occupational status: other Travel in the last 8 weeks?: None Contact w/someone who lives/traveled outside [place] past 30 days?: No Exposure to someone with infectious disease in past 14 days?: No Do you have a fever (greater than 100.4 F or 38 C)?: No Have you tested positive for COVID-19?: No Exposed to someone with COVID-19 in past 14 days?: No Do you have a sore throat?: No Do you have a cough?: No Do you have any weakness?: No Are you experiencing any nausea/vomitting?: No Do you have any diarrhea?: No Are you experiencing any unusual bleeding?: No Do you have any muscle aches/pain?: No Do you have any abdominal pain?: No Are you experiencing loss of taste or smell?: No Review of Systems Review of Systems Review of systems:: pertinent systems reviewed and negative unless documented below *Cardiovascular Cardiovascular: Denies chest pain and Reports dyspnea *Respiratory Respiratory: Reports cough and Reports dyspnea Exam Data for Last 24 hours Vital signs and Labs for Last 24 Hours: Temp Pulse Resp BP Pulse Ox O2 Del Method O2 Flow Rate 97.5 F L 78 18 112/62 97 Nasal Cannula 2 03/03/25 07:58 03/03/25 07:58 03/03/25 07:58 03/03/25 07:58 03/03/25 07:58 03/03/25 07:58 03/03/25 07:58 FiO2 28 03/03/25 03:34 Laboratory Results - last 24 hr 03/02/25 23:28: WBC 10.7, RBC 4.24, Hgb 10.6 L, Hct 35.1 L, MCV 82.8, MCH 25.0 L, MCHC 30.2 L, RDW 22.9 H, Plt Count 288 D, MPV 10.0, Neut % (Auto) 64.0, Lymph % (Auto) 17.7, Jefferson % (Auto) 7.0, Eos % (Auto) 10.7, Baso % (Auto) 0.2, Neut # (Auto) 6.9, Lymph # (Auto) 1.9, Jefferson # (Auto) 0.8, Eos # (Auto) 1.1 H, Baso # (Auto) 0.0, Sodium 138, Potassium 3.7, Chloride 100, Carbon Dioxide 35 H, Anion Gap 6.7, BUN 15, Creatinine 1.00, Estimated Creat Clear 40, Estimated GFR 54 L, Est GFR ( Amer) 65, Glucose 105 H, Calcium 8.6, Total Bilirubin 0.4, AST 25, ALT 15, Alkaline Phosphatase 111, Troponin I 0.01, NT-Pro-B Natriuret Pep 4860 H, Total Protein 6.5, Albumin 3.9, Globulin 2.6, Albumin/Globulin Ratio 1.5 03/02/25 23:33: VBG pH 7.37, VBG pCO2 51.9 H, VBG pO2 64.1 H, VBG HCO3 29.3, VBG Total CO2 30.9 H, VBG O2 Saturation 88.7 H, VBG Base Excess 3.1 H, VBG Lactic Acid 1.8 03/03/25 01:54: Troponin I 0.02 03/03/25 06:38: WBC 12.4 H, RBC 4.37, Hgb 10.9 L, Hct 35.6 L, MCV 81.5, MCH 24.9 L, MCHC 30.6 L, RDW 22.6 H, Plt Count 299, MPV 10.0, Neut % (Auto) 94.7 H, Lymph % (Auto) 4.2 L, Jefferson % (Auto) 0.6 L, Eos % (Auto) 0.0 L, Baso % (Auto) 0.1, Neut # (Auto) 11.7 H, Lymph # (Auto) 0.5 L, Jefferson # (Auto) 0.1, Eos # (Auto) 0.0, Baso # (Auto) 0.0, Sodium 136, Potassium 3.5, Chloride 95 L, Carbon Dioxide 34 H, Anion Gap 10.5, BUN 15, Creatinine 1.10 H, Estimated Creat Clear 35, Estimated GFR 48 L, Est GFR ( Amer) 59, Glucose 154 H D, Calcium 8.7, Magnesium 1.8, Total Bilirubin 0.3, AST 31, ALT 16, Alkaline Phosphatase 115, Total Protein 6.5, Albumin 4.2, Globulin 2.3, Albumin/Globulin Ratio 1.8 I & O for Last 24 hours: Intake & Output 02/28/25 03/01/25 03/02/25 03/03/25 23:59 23:59 23:59 23:59 Intake Total 240 / 240 Output Total 1400 / 1400 Balance -1160 / -1160 Weight 115 lb 110 lb 1.582 oz Constitutional Constitutional: no acute distress *Routine Respiratory Exam Respiratory: Present wheezes and symmetric chest movement *Routine Cardiovascular Exam Cardiovascular: Present RRR, Normal S1 and Normal S2 *Routine Abdominal Exam Abdominal: Present soft and normoactive bowel sounds; Absent tenderness *Routine Extremities Exam Extremities: Present full ROM and normal capillary refill; Absent edema *Routine Skin Exam Skin: Present intact, dry and warm Detailed Neck Exam: Thyroids Thyroid: Absent bruit Meds Home Medications and Allergies Home Medications ?Medication ?Instructions ?Recorded ?Confirmed ?Type atorvastatin 40 mg tablet 40 mg PO HS 12/31/23 03/03/25 History clopidogrel 75 mg tablet 75 mg PO DAILY 12/31/23 03/03/25 History sertraline 100 mg tablet 200 mg PO DAILY 12/31/23 03/03/25 History cyanocobalamin (vitamin B-12) 1,000 mcg PO DAILY 04/02/24 03/03/25 History 1,000 mcg tablet isosorbide mononitrate 60 mg 60 mg PO DAILY #30 tabs 01/07/25 03/03/25 Rx tablet,extended release 24 hr meloxicam 15 mg tablet 15 mg PO DAILY 01/07/25 03/03/25 History montelukast 10 mg tablet 10 mg PO HS 01/07/25 03/03/25 History furosemide 40 mg tablet 40 mg PO DAILY 30 days #30 tabs 01/17/25 03/03/25 Rx empagliflozin 10 mg tablet 10 mg PO DAILY 30 days #30 tabs 02/04/25 02/25/25 Rx (Jardiance) irbesartan 75 mg tablet 75 mg PO DAILY 30 days #30 tabs 02/04/25 03/03/25 Rx spironolactone 25 mg tablet 25 mg PO DAILY 30 days #30 tabs 02/04/25 03/03/25 Rx albuterol sulfate 90 mcg/actuation 2 inh inhalation QIDP PRN 02/12/25 03/03/25 History aerosol inhaler shortness of breath or wheezing polyethylene glycol 3350 17 gram 17 g PO DAILY 30 days #30 ea 02/14/25 03/03/25 Rx oral powder packet (HealthyLax) rivastigmine 4.6 mg/24 hour 4.6 mg topical Q48H 02/14/25 03/03/25 History transdermal patch fluticasone fur. 100 mcg-umeclid 1 inh inhalation DAILY 90 days #60 02/20/25 03/03/25 Rx 62.5 mcg-vilant 25 mcg ea inhalat.powder (Trelegy Ellipta) ipratropium 0.5 mg-albuterol 3 mg 3 ml inhalation Q6HP PRN shortness 02/21/25 03/03/25 Rx (2.5 mg base)/3 mL nebulization of breath or wheezing 30 days #180 soln mL carvedilol 25 mg tablet 25 mg PO BIDWMEAL 02/25/25 03/03/25 History hydrocodone 7.5 mg-acetaminophen 1 tab PO Q8HP PRN Mild Pain (Scale 02/25/25 03/03/25 History 325 mg tablet Score 1-4) bupropion HCl 75 mg tablet 75 mg PO BID 30 days #60 tabs 02/27/25 03/03/25 Rx New Prescriptions to Start Prescriptions: Allergies Allergy/AdvReac Type Severity Reaction Status Date / Time No Known Allergies Allergy Verified 02/20/25 13:44 Assessment and Plan *Assessment and plan (1) COPD exacerbation: Status: Acute Category: Medical Code(s): J44.1 - Chronic obstructive pulmonary disease with (acute) exacerbation (2) Acute on chronic respiratory failure with hypoxia and hypercapnia: Status: Acute Category: Medical Code(s): J96.21 - Acute and chronic respiratory failure with hypoxia; J96.22 - Acute and chronic respiratory failure with hypercapnia (3) (HFpEF) heart failure with preserved ejection fraction: Status: Acute Qualifiers: Heart failure chronicity: chronic Qualified Code(s): I50.32 - Chronic diastolic (congestive) heart failure Category: Medical Code(s): I50.30 - Unspecified diastolic (congestive) heart failure (4) Iron deficiency anemia: Status: Acute Qualifiers: Iron deficiency anemia type: unspecified iron deficiency Qualified Code(s): D50.9 - Iron deficiency anemia, unspecified Category: Medical Code(s): D50.9 - Iron deficiency anemia, unspecified Plan Acute on chronic hypoxic respiratory failure Acute exacerbation of COPD Acute on chronic HFpEF ProBNP on admission 4860 Serial troponins negative Normal EF earlier this month Reports feeling better after diuretics Continue Lasix 40 mg p.o. twice daily, Aldactone 25 mg p.o. daily and Jardiance 10 mg p.o. daily COPD exacerbation will defer to primary service and pulmonology service History of nonflow limiting coronary artery disease Medical management heart cath 01/2025 Patient denies chest pain Troponins negative Plavix and statin Hypertension BP was elevated on admission and has improved with diuresis Continue irbesartan 75 mg p.o. daily and carvedilol 25 mg p.o. twice daily Iron deficiency anemia Hemoglobin 10.6, MCV 82.8 and stable For to primary service CV summary 03/03/2025: Cardiology will sign off. Patient has had good urine output and reports shortness of breath is improving. These DC patient home on increased dose of Lasix at 40 mg p.o. twice daily. Please have patient follow-up in cardiology clinic in 1 week for reevaluation. Cardiac meds for discharge: Lasix 40 mg p.o. twice daily Aldactone 25 mg p.o. daily Jardiance 10 mg p.o. daily Plavix 75 mg p.o. daily Atorvastatin 40 mg p.o. daily Irbesartan 75 mg p.o. daily Carvedilol 25 mg p.o. BID
[2025-03-03 10:42] LABS: Total Cells Counted 100
[2025-03-03 10:43] LABS: Anisocytosis 1+; Hypochromasia 1+; Ovalocytes 1+; Poikilocytosis 1+
[2025-03-03] MEDS: APAP/HYDROCODONE 325MG/7.5MG TAB 1 TAB PO ×2 (10:54→20:11)
--- NOTE | 2025-03-03 12:10 | SW/DCPLANNER ---
Patient is currently established with [employer] [facility].
[2025-03-03] MEDS: FLUTICASONE/UMECLIDIN/VILANTER 100/62.5/25MCG INHALER 1 PUFF IH (12:56)
--- NOTE | 2025-03-03 14:32 | HMH.SLDYSPHA ---
Speech & Language Evaluation Speech/Language Dysphagia Evaluation Start: 03/03/25 14:18 Freq: ONCE Status: Active Protocol: Document 03/03/25 14:18 [email or web address] (Rec: 03/03/25 14:32 [id number] Dysphagia Assess/Goals/Plan Assessment Date of Evaluation: 03/03/25 Evaluation Type Initial Certification Assessment/Problems possible silent aspiration per MD order Does Patient Qualify No for Service Qualify/Failure Based on clinical observations made throughout the Comment clinical bedside swallow evaluation, further skilled speech services are not warranted at this time d/t no overt s/sx of aspiration and adequate mastication and manipulation of bolus on all consistencies trialed. Recommendations PHYSICIAN CERTIFICATION: The specified therapy services are required, authorized, and reviewed every 30 days. Diet Recommendations Normal Liquid Type Normal/Thin Recommendations SL Swallow Alt bite w/sip thru meal,Standard Aspiration Prec.,Eat Guidelines at slow rate,Reflux precautions Dysphagia Swallow Sitting Upright (90 deg),Small Bites and Sips,Alternate Precautions/ Liquids/Solids Strategies Plan Pt/Guardian verbally Yes ack understanding of dx/prognosis/ goals G -code Required No Education Instructions SOFTWARE QUALITY ASSURANCE SPECIALIST discussed clinical observations made throughout provided clinical bedside swallow evaluation, aspiration precautions/compensatory strategies, and diet recommendations for pt, CM, and nursing, all of which expressed understanding. Pt/Caregiver able to Able to recall/restate recall information Reinforcement needed No Speech & Language HPI History Present Illness Description of SOFTWARE QUALITY ASSURANCE SPECIALIST pulled the following from pt's H&P and chest x-ray: Patient Problem Loreta Santiago is a 74-year-old female with medical history significant for severe emphysema/COPD on 2L as needed, HFpEF, hypertension, iron deficiency anemia, mood disorder who presents with acute onset dyspnea that began last night. Patient states she felt weak yesterday without significant symptom burden until later in the evening when she began to have worsening shortness of breath. Her daughter apparently thought her face was turning blue at which point EMS was called . Of note, patient was recently discharged from our facility 4 days ago in stable condition. She was treated for COPD and HFpEF exacerbation and discharged on room air. She states she has been taking her medications at home, including Trelegy and Lasix. Additionally, she states she has been having nonproductive cough over the past few days. No recent changes in lifestyle, no new pets, relocation. No recent sick contacts. Denies fever/chills, chest pain. Workup in the ED significant for unremarkable VBG showing mild chronic hypercapnia, CXR showing slightly worsening interstitial infiltrates compared to last CXR 3 days ago, BNP 4860. Otherwise CBC, CMP unremarkable . Patient was given DuoNebs x 3, Solu-Medrol, Lasix 80 mg but continued to have increased work of breathing, accessory muscle use, and apparent restricted airway. She was requiring 2 L at this time. Case discussed with ED provider and decision was made to admit patient for further evaluation of acute on chronic hypoxic respiratory failure. Chest x-ray: FINDINGS: Lungs: No consolidation or pulmonary edema. Pleural spaces: No pleural effusion. No pneumothorax. Heart/Mediastinum: The cardiomediastinal silhouette is not enlarged. Likely coronary stent is again noted. Bones/joints: Visualized bones demonstrate no acute abnormality. IMPRESSION: No acute abnormality is identified. Rehab Services Speech therapy Assessed Is this evaluation r No /t stroke? Language Primary Language Yi General Information General Current Food Regular,Thin Liquids Consistancy Dentition Good Dentition Facial Symmetry Symmetrical Patient Orientation Person,Place,Time,Situation Ability to Follow Excellent Directions Communication No Impairment Ability Dysphagia:Food Presentation Evaluation Food Type Pureed,Mechanical Soft,Regular,Liquid,Pudding Dysphagia Evaluation Residual on tongue Mechanical Soft Food Behavior Response Dysphagia Evaluation A clinical bedside swallow evaluation was administered Summary this afternoon with pt sitting upright in bed. Pt A&O x4 and reported that her throat felt scratchy, however she had no issues with her swallowing. SOFTWARE QUALITY ASSURANCE SPECIALIST presented thin liquid (water) via open cup and straw, pudding, puree (applesauce), mechanical soft (Nutrigrain bar), and regular (all cracker). Pt demonstrated coughing when taking continuous, large sips of water. After being cued to take small, single sips, pt did not demonstrate any overt s/sx of aspiration. No other overt s/sx of aspiration were observed on any consistency administered throughout evaluation. Adequate labial seal, along with mastication and manipulation of bolus on all consistencies administered . Minimal residual observed on tongue, and was cleared with thin liquid wash. SOFTWARE QUALITY ASSURANCE SPECIALIST recommends thin liquid/ regular diet w/ compensatory strategies including: alternating bites/sips, small bites/sips, eating at a slow rate, and sitting up during/after meal for 30-60 mins. Stroke Dysphagia Assessment PHYSICIAN CERTIFICATION: I certify the specified therapy services for Loreta Brazil are required, authorized, and reviewed every 30 days.
--- NOTE | 2025-03-03 15:45 | P.EN_ITS ---
<Statement entered by Juan Manuel Stringer MD - 03/03/25 17:01> Rounded on patient after nurse practitioner. Personally examined and interviewed patient. Agree with exam findings and care plan as documented. Ms. Santiago was admitted overnight for acute hypoxic respiratory failure. Elevated BNP at 4860, chest x-ray shows potential flash pulmonary edema. No pneumonia/effusions noted. Patient was admitted to the medical surgical floor for diuresis and continued monitoring of elevated blood pressures. Systolic blood pressures initially were 180s to 200s, home meds were resumed and Ibersartan increased from 75 to 150 mg, continued carvedilol 25 mg twice daily, Imdur 60 mg, spironolactone 25 mg. In addition to blood pressure medications Lasix 40 mg IV twice daily L was started for further diuresis. Patient doing well on assessment this morning, work of breathing she states is much improved. She is on 2 L nasal cannula. Saturation above 90%. Patient began to feel lightheaded, more short of breath around noon blood pressure was checked, 60s/40s, ordered for a one-time 500 mL bolus ordered. Patient's blood pressures seem to stabilize after fluids. Pressures 100/50s. Patient states she felt better her work of breathing was easier, denied lightheadedness. Continued blood pressure checks showed patient still to be hypotensive, BP 60s/30s. Decision was made for patient to transfer to stepdown for closer monitoring, another 500 mL normal saline bolus given over 1 hour. Plans to hold Coreg 25 mg, Lasix 40 mg, Ibersartan 150 mg tonight, serial blood pressures.
--- NOTE | 2025-03-03 16:18 | PC.NURSE ---
patient arrived to ICU room 265 via bed with EVELYN and RN @[phone]
--- NOTE | 2025-03-03 17:30 | PC.NURSE ---
late entry: around 1245 tech called saying pts manual b/p 60s/40s. pt was alert but tired feeling . notified wallace, VO for 500ml ns bolus. after the bolus pts b/p was 95/45. around 1500 pts manual b/p was 60/38, notified md arroyo who was quick at the bs. VO to bolus another 500ml ns. per dina, pt needs to be transferred to stepdown for closer monitoring. notified pts daughter and updated her phone number in the chart. 1530: gave report to curriculum directorkana snell
[2025-03-03] MEDS: ATORVASTATIN 40MG TABLET 40 MG PO (20:07)
[2025-03-03] MEDS: MONTELUKAST SODIUM 10MG TAB 10 MG PO (20:07)
[2025-03-04] VITALS (16 sets, daily range): BP systolic 100–149; BP diastolic 43–72; PULSE 63–87; RESP 16–24; TEMP 36.4–37.1; O2SAT 88–96; BMI 22.8
--- NOTE | 2025-03-04 01:07 | PC.NURSE ---
Pt has not voided this shift. bladder scan 172ml. MD Son notified
--- NOTE | 2025-03-04 04:32 | PC.NURSE ---
Addendum entered by Carola Armenta RN 03/04/25 05:18: O2 sat maintaining around 95% on 1L. Original Note: pt taken off of 1L NC and placed on RA. O2 sat decreased to 85%. Pt placed back on 1L NC.
--- NOTE | 2025-03-04 06:00 | PC.NURSE ---
no acute changes overnight. remains on 1L NC. Medicated per MAR for chronic back pain. Small unmeasured void this morning.
[2025-03-04] MEDS: FLUTICASONE/UMECLIDIN/VILANTER 100/62.5/25MCG INHALER 1 PUFF IH (06:12)
[2025-03-04 06:15] LABS: Hematocrit 31.1 % (37.0-47.0); Immature Granulocytes % 0.5 %; Mean Corpuscular HGB Conc 29.3 g/dL (31.8-35.4); Mean Corpuscular Hemoglobin 24.3 pg (27.0-31.2); Mean Corpuscular Volume 83.2 fl (81-99); Nucleated Red Blood Cells % 0 %; Platelet Count 268 K/mm3 (142-424); Red Blood Count 3.74 M/mm3 (4.20-5.40); Red Cell Distribution Width-SD 69.1 fL; White Blood Count 10.9 K/mm3 (4.8-10.8)
[2025-03-04 06:32] LABS: Alanine Aminotransferase 16 U/L (12-78); Albumin Level 3.6 g/dl (3.5-5.0); Albumin/Globulin Ratio 1.8 (1.1-1.8); Alkaline Phosphatase 100 U/L (38-126); Anion Gap 9.6 mEq/L (5-15); Aspartate Amino Transferase 25 U/L (14-36); Blood Urea Nitrogen 24 mg/dl (7-17); Calcium 7.9 mg/dl (8.4-10.2); Carbon Dioxide 33 mmol/L (22.0-30.0); Chloride 97 mmol/L (98-107); Creatinine Clearance Estimated 20 mL/min (50-200); Creatinine,Serum 2.10 mg/dl (0.52-1.04); Estimated Glomerular Filt Rate 23 ml/min (>60); GFR (African American) 28 ML/MIN (>60); Globulin 2.0 g/dL (1.3-3.2); Glucose 120 mg/dl (74-100); Potassium 3.6 mmoL/L (3.5-5.1); Sodium 136 mmol/L (136-145); Total Protein,Serum 5.6 g/dl (6.3-8.2)
[2025-03-04 06:35] LABS: Hemoglobin 9.2 g/dL (12.2-16.2)
[2025-03-04 06:51] LABS: Bilirubin,Total 0.1 mg/dl (0.2-1.3)
[2025-03-04] MEDS: CLOPIDOGREL 75MG TAB 75 MG PO (08:41)
[2025-03-04] MEDS: SPIRONOLACTONE 25MG TABLET 25 MG PO (08:41)
[2025-03-04] MEDS: BUSPIRONE HCL 5 MG TABLET PO ×3 (08:41→20:13)
[2025-03-04] MEDS: EMPAGLIFLOZIN 10MG TABLET 10 MG PO (08:42)
[2025-03-04] MEDS: POLYETHYLENE GLYCOL 3350 17 GM PACKET PO (08:43)
[2025-03-04] MEDS: ESCITALOPRAM 20MG TABLET 20 MG PO (08:43)
[2025-03-04] MEDS: APAP/HYDROCODONE 325MG/7.5MG TAB 1 TAB PO ×2 (08:43→16:11)
--- NOTE | 2025-03-04 10:01 | EXP.PULM.CON ---
History of Present Illness History of present illness: Ms. Santiago is a 74-year-old male greater than [id number] smoking history COPD on triple inhaler therapy, uncontrolled hypertension, anxiety issues multiple hospital admissions recently for hypercarbic respiratory failure presented to the ER again with respiratory distress and pulmonary was called for further evaluation and management. Patient denies any worsening cough or any productive phlegm. Denies any worsening wheezing. Admits compliance with his inhaler therapy upon her recent discharge [facility] Disclaimer: The information contained in this section may have been updated after the patient was seen, as this information can be updated by other users. Medical History (Updated 03/04/25 @ 11:49 by Tita Rodriguez APRN) Elevated troponin Hypocalcemia Hypomagnesemia Thyroid lesion Acidosis Chronic bronchitis Acute exacerbation of CHF (congestive heart failure) Acute exacerbation of chronic obstructive pulmonary disease Ex-smoker Pulmonary cachexia due to chronic obstructive pulmonary disease Acute and chronic respiratory failure with hypercapnia Distressed breathing COPD mixed type CAP (community acquired pneumonia) Other forms of dyspnea Pulmonary hypertension Hyperlipidemia Hypertension Dyspnea Atypical angina Chronic respiratory failure with hypoxia Encounter for screening for malignant neoplasm of lung Smoking greater than 30 pack years Pulmonary emphysema COPD exacerbation BMI less than 19,adult (HFpEF) heart failure with preserved ejection fraction Tobacco dependence Dependence on supplemental oxygen Coronary artery disease Iron deficiency anemia COPD (chronic obstructive pulmonary disease) Surgical History Hx of esophagogastroduodenoscopy History of colonoscopy History of hysterectomy History of heart artery stent S/P cardiac catheterization Family History Father Alzheimer disease Mother Stroke Social History (Updated 03/03/25 @ 02:37 by Rochelle Wylie RN) Smoking Status: Former smoker tobacco type: cigarettes packs per day: 1 years smoked: 50 smoking status stop date: 3 years ago alcohol intake: former substance use type: denies use current occupational status: other Travel in the last 8 weeks?: None Have you lived/traveled outside [place] in past 30 days?: No Contact w/someone who lives/traveled outside [place] past 30 days?: No Exposure to someone with infectious disease in past 14 days?: No Do you have a fever (greater than 100.4 F or 38 C)?: No Have you tested positive for COVID-19?: No Exposed to someone with COVID-19 in past 14 days?: No Do you have a sore throat?: No Do you have a cough?: No Do you have any weakness?: No Are you experiencing any nausea/vomitting?: No Do you have any diarrhea?: No Are you experiencing any unusual bleeding?: No Do you have any muscle aches/pain?: No Do you have any abdominal pain?: No Are you experiencing loss of taste or smell?: No Review of Systems Constitutional Constitutional: Reports fatigue Eyes Eyes: Denies eye discharge, Denies dry eyes, Denies irritation and Denies itchy eyes ENT Ears, Nose, Mouth, and Throat: Denies epistaxis, Denies facial pain, Denies lip swelling and Denies throat swelling *Cardiovascular Cardiovascular: Reports dyspnea and Reports dyspnea on exertion *Respiratory Respiratory: Denies change in phlegm color, Reports chest congestion, Reports cough, Reports dyspnea, Reports dyspnea on exertion, Denies excessive phlegm production, Denies hemoptysis, Denies pain on inspiration, Denies pain with cough and Denies wheezing *Gastrointestinal Gastrointestinal: Denies abdominal pain, Denies belching and Denies cramping *Musculoskeletal Musculoskeletal: Reports back pain, Reports myalgias and Reports other (No small joint swelling or Pain) Psychiatric Psychiatric: Denies homicidal ideation and Denies suicidal ideation Endocrine Endocrine: Reports fatigue and Denies heat intolerance Hematologic/Lymphatic Hematologic/Lymphatic: Denies easy bleeding and Denies lymphadenopathy Allergic/Immunologic Allergic/Immunologic: Denies itchy eyes, Denies lip swelling, Denies throat swelling and Denies wheezing Pulmonology Exam Inpatient Vital signs and Labs for Last 24 Hours: Temp Pulse Resp BP Pulse Ox O2 Del Method O2 Flow Rate 98.5 F 70 24 121/51 L 96 Nasal Cannula 1 03/04/25 08:00 03/04/25 08:17 03/04/25 08:00 03/04/25 08:00 03/04/25 08:53 03/04/25 09:00 03/04/25 09:00 FiO2 28 03/03/25 03:34 Laboratory Results - last 24 hr 03/03/25 05:25: Chlamy pneumoniae PCR Not detected, Adenovirus (PCR) Not detected, B. pertussis DNA (PCR) Not detected, Coronavirus OC43 (PCR) Not detected, Coronavirus HKU1 (PCR) Not detected, Coronavirus 229E (PCR) Not detected, SARS-CoV-2 (PCR) Not detected, Coronavirus NL63 (PCR) Not detected, Human Metapneumovir PCR Not detected, Influenza A (H1) PCR Not detected, Influ A (H1N1/09) PCR Not detected, Influenza A (H3) PCR Not detected, Influenza Type A (PCR) Not detected, Influenza Type B (PCR) Not detected, M. pneumoniae (PCR) Not detected, Parainfluenza 1 (PCR) Not detected, Parainfluenza 2 (PCR) Not detected, Parainfluenza 3 (PCR) Not detected, Parainfluenza 4 (PCR) Not detected, RSV (PCR) Not detected, Entero/Rhino (PCR) Not detected 03/03/25 06:38: Total Counted 100, Neutrophils % (Manual) 97 H, Lymphocytes % (Manual) 3 L, Platelet Estimate Normal, Hypochromasia 1+, Poikilocytosis 1+, Anisocytosis 1+, Ovalocytes 1+ 03/04/25 05:31: WBC 10.9 H, RBC 3.74 L, Hgb 9.2 L D, Hct 31.1 L, MCV 83.2, MCH 24.3 L, MCHC 29.3 L, RDW 22.9 H, Plt Count 268, MPV 10.5 H, Neut % (Auto) 68.3, Lymph % (Auto) 21.3, [place] % (Auto) 8.7, Eos % (Auto) 0.9, Baso % (Auto) 0.3, Neut # (Auto) 7.4, Lymph # (Auto) 2.3, [place] # (Auto) 0.9, Eos # (Auto) 0.1, Baso # (Auto) 0.0, Sodium 136, Potassium 3.6, Chloride 97 L, Carbon Dioxide 33 H, Anion Gap 9.6, BUN 24 H D, Creatinine 2.10 H D, Estimated Creat Clear 20, Estimated GFR 23 L, Est GFR ( Amer) 28 L D, Glucose 120 H D, Calcium 7.9 L, Total Bilirubin 0.1 L, AST 25, ALT 16, Alkaline Phosphatase 100, Total Protein 5.6 L, Albumin 3.6 D, Globulin 2.0, Albumin/Globulin Ratio 1.8 I & O for Labs for Last 24 Hours: Intake & Output 03/01/25 03/02/25 03/03/25 03/04/25 23:59 23:59 23:59 23:59 Intake Total 550 / 950 820 / 820 Output Total 1650 / 1650 0 / 0 Balance -1100 / -700 820 / 820 Weight 115 lb 110 lb 1.582 oz 120 lb 14.4 oz Constitutional: Present mild distress Head: Present normocephalic and atraumatic ENT: Present normal exam, normal oropharynx and mucous membranes moist Neck: Present normal inspection and full ROM Respiratory: Present able to speak in complete sentences; Absent prolonged expiratory phase, respiratory distress, wheezes or diminished air movement Cardiac: Present S1/S2, Tachycardia and radial pulses present GI: Present soft and distention; Absent tenderness or guarding Rectal (female): Present deferred (female): Present deferred Skin: Present intact; Absent cyanosis or jaundice Neuro: Present alert, awake and oriented x 3 Extremities: Present normal inspection; Absent clubbing or cyanosis Psychiatric: Present normal affect and cooperative Meds Home Medications and Allergies Home Medications ?Medication ?Instructions ?Recorded ?Confirmed ?Type atorvastatin 40 mg tablet 40 mg PO HS 12/31/23 03/03/25 History clopidogrel 75 mg tablet 75 mg PO DAILY 12/31/23 03/03/25 History sertraline 100 mg tablet 200 mg PO DAILY 12/31/23 03/03/25 History cyanocobalamin (vitamin B-12) 1,000 mcg PO DAILY 04/02/24 03/03/25 History 1,000 mcg tablet isosorbide mononitrate 60 mg 60 mg PO DAILY #30 tabs 01/07/25 03/03/25 Rx tablet,extended release 24 hr meloxicam 15 mg tablet 15 mg PO DAILY 01/07/25 03/03/25 History montelukast 10 mg tablet 10 mg PO HS 01/07/25 03/03/25 History furosemide 40 mg tablet 40 mg PO DAILY 30 days #30 tabs 01/17/25 03/03/25 Rx empagliflozin 10 mg tablet 10 mg PO DAILY 30 days #30 tabs 02/04/25 03/03/25 Rx (Jardiance) irbesartan 75 mg tablet 75 mg PO DAILY 30 days #30 tabs 02/04/25 03/03/25 Rx spironolactone 25 mg tablet 25 mg PO DAILY 30 days #30 tabs 02/04/25 03/03/25 Rx albuterol sulfate 90 mcg/actuation 2 inh inhalation QIDP PRN 02/12/25 03/03/25 History aerosol inhaler shortness of breath or wheezing polyethylene glycol 3350 17 gram 17 g PO DAILY 30 days #30 ea 02/14/25 03/03/25 Rx oral powder packet ([employer]yLax) rivastigmine 4.6 mg/24 hour 4.6 mg topical Q48H 02/14/25 03/03/25 History transdermal patch fluticasone fur. 100 mcg-umeclid 1 inh inhalation DAILY 90 days #60 02/20/25 03/03/25 Rx 62.5 mcg-vilant 25 mcg ea inhalat.powder (Trelegy Ellipta) ipratropium 0.5 mg-albuterol 3 mg 3 ml inhalation Q6HP PRN shortness 02/21/25 03/03/25 Rx (2.5 mg base)/3 mL nebulization of breath or wheezing 30 days #180 soln mL carvedilol 25 mg tablet 25 mg PO BIDWMEAL 02/25/25 03/03/25 History hydrocodone 7.5 mg-acetaminophen 1 tab PO Q8HP PRN Mild Pain (Scale 02/25/25 03/03/25 History 325 mg tablet Score 1-4) bupropion HCl 75 mg tablet 75 mg PO BID 30 days #60 tabs 02/27/25 03/03/25 Rx New Prescriptions to Start Prescriptions: Allergies Allergy/AdvReac Type Severity Reaction Status Date / Time No Known Allergies Allergy Verified 02/20/25 13:44 Results Laboratory Findings 03/04/25 05:31 03/04/25 05:31 Abnormal lab findings: Abnormal Labs 03/02/25 03/02/25 03/03/25 23:28 23:33 06:38 WBC 12.4 H RBC Hgb 10.6 L 10.9 L Hct 35.1 L 35.6 L MCH 25.0 L 24.9 L MCHC 30.2 L 30.6 L RDW 22.9 H 22.6 H MPV Neut % (Auto) 94.7 H Lymph % (Auto) 4.2 L [place] % (Auto) 0.6 L Eos % (Auto) 0.0 L Neut # (Auto) 11.7 H Lymph # (Auto) 0.5 L Eos # (Auto) 1.1 H Neutrophils % (Manual) 97 H Lymphocytes % (Manual) 3 L VBG pCO2 51.9 H VBG pO2 64.1 H VBG Total CO2 30.9 H VBG O2 Saturation 88.7 H VBG Base Excess 3.1 H Chloride 95 L Carbon Dioxide 35 H 34 H BUN Creatinine 1.10 H Estimated GFR 54 L 48 L Est GFR ( Amer) Glucose 105 H 154 H D Calcium Total Bilirubin NT-Pro-B Natriuret Pep 4860 H Total Protein 03/04/25 05:31 WBC 10.9 H RBC 3.74 L Hgb 9.2 L D Hct 31.1 L MCH 24.3 L MCHC 29.3 L RDW 22.9 H MPV 10.5 H Neut % (Auto) Lymph % (Auto) [place] % (Auto) Eos % (Auto) Neut # (Auto) Lymph # (Auto) Eos # (Auto) Neutrophils % (Manual) Lymphocytes % (Manual) VBG pCO2 VBG pO2 VBG Total CO2 VBG O2 Saturation VBG Base Excess Chloride 97 L Carbon Dioxide 33 H BUN 24 H D Creatinine 2.10 H D Estimated GFR 23 L Est GFR ( Amer) 28 L D Glucose 120 H D Calcium 7.9 L Total Bilirubin 0.1 L NT-Pro-B Natriuret Pep Total Protein 5.6 L Assessment and Plan *Assessment and plan (1) Flash pulmonary edema: Status: Acute Category: Medical Code(s): J81.0 - Acute pulmonary edema (2) Acute on chronic respiratory failure with hypoxia and hypercapnia: Status: Acute Category: Medical Code(s): J96.21 - Acute and chronic respiratory failure with hypoxia; J96.22 - Acute and chronic respiratory failure with hypercapnia Plan Ms. Santiago is a 74-year-old male greater than [id number] smoking history COPD on triple inhaler therapy, uncontrolled hypertension, anxiety issues multiple hospital admissions recently for hypercarbic respiratory failure presented to the ER again with respiratory distress and pulmonary was called for further evaluation and management. Patient denies any worsening cough or any productive phlegm. Denies any worsening wheezing. Admits compliance with his inhaler therapy upon her recent discharge Patient appeared to be hypertensive upon admission with bilateral interstitial infiltrates with significant improvement with diuretics. Afebrile. Hemodynamically stable. No evidence of leukocytosis. Comprehensive respiratory viral PCR panel negative. Chest x-ray upon admission no dense consolidative/airspace changes. Auscultation clear with no significant wheezing noted this morning. Plan: Trelegy 100 inhaler along with DuoNebs 4 times daily as needed Agree with not initiating antibiotics or steroids at this point of time. ENT evaluation for possible local Dysfunction as an outpatient basis Behavioral health and hematology follow-up as an outpatient basis
--- NOTE | 2025-03-04 10:24 | P.PN_ITS ---
<Statement entered by Juan Manuel Stringer MD - 03/04/25 12:06> Rounded on patient after nurse practitioner. Personally examined and interviewed patient. Agree with exam findings and care plan as documented. Subjective *Date: 03/04/25 *Time: 12:06 Interval history: Patient feeling better this morning. Denies chest pain or shortness of breath. Stable oxygen requirement of 1 L. Denies dizziness. Making urine. Medical Exam Vital signs and Labs for Last 24 Hours: Vital Signs Temp Pulse Pulse Resp BP BP Pulse Ox 03/04/25 10:01 75 21 149/72 H 94 L 03/04/25 09:30 70 21 119/63 91 L 03/04/25 09:00 70 24 126/59 L 96 03/04/25 09:00 03/04/25 08:53 96 03/04/25 08:39 95 03/04/25 08:30 71 22 126/57 L 96 03/04/25 08:17 70 03/04/25 08:00 98.5 F 73 24 121/51 L 92 L 03/04/25 06:59 03/04/25 06:00 87 21 131/61 95 03/04/25 05:00 03/04/25 04:00 75 03/04/25 04:00 98.7 F 72 16 105/43 L 95 03/04/25 03:00 03/04/25 02:00 65 21 100/47 L 95 03/04/25 01:00 03/04/25 00:00 69 03/04/25 00:00 98.8 F 74 21 102/46 L 95 03/03/25 23:00 03/03/25 22:00 74 24 109/37 L 94 L 03/03/25 21:00 03/03/25 20:00 99.3 F 74 27 H 101/49 L 94 L 03/03/25 20:00 73 03/03/25 19:39 93 L 03/03/25 18:40 03/03/25 18:12 74 03/03/25 18:12 73 03/03/25 18:00 77 25 H 101/46 L 93 L 03/03/25 17:07 73 21 109/47 L 90 L 03/03/25 17:06 03/03/25 16:24 69 03/03/25 16:23 67 18 91/49 L 91 L 03/03/25 15:00 03/03/25 13:00 03/03/25 12:57 65 03/03/25 12:57 65 03/03/25 12:00 97.4 F L 65 16 76/39 L 100 03/03/25 11:00 O2 Del Method O2 Flow Rate 03/04/25 10:01 Nasal Cannula 1 03/04/25 09:30 Nasal Cannula 1 03/04/25 09:00 Nasal Cannula 1 03/04/25 09:00 Nasal Cannula 1 03/04/25 08:53 Nasal Cannula 1 03/04/25 08:39 Nasal Cannula 1 03/04/25 08:30 Nasal Cannula 1 03/04/25 08:17 03/04/25 08:00 Nasal Cannula 1 03/04/25 06:59 Nasal Cannula 1 03/04/25 06:00 Nasal Cannula 1 03/04/25 05:00 Nasal Cannula 1 03/04/25 04:00 03/04/25 04:00 Nasal Cannula 1 03/04/25 03:00 Nasal Cannula 1 03/04/25 02:00 Nasal Cannula 1 03/04/25 01:00 Nasal Cannula 1 03/04/25 00:00 03/04/25 00:00 Nasal Cannula 1 03/03/25 23:00 Nasal Cannula 1 03/03/25 22:00 Nasal Cannula 1 03/03/25 21:00 Nasal Cannula 2 03/03/25 20:00 Nasal Cannula 1 03/03/25 20:00 03/03/25 19:39 Nasal Cannula 1 03/03/25 18:40 Nasal Cannula 1 03/03/25 18:12 03/03/25 18:12 03/03/25 18:00 Nasal Cannula 1 03/03/25 17:07 Nasal Cannula 1 03/03/25 17:06 Nasal Cannula 1 03/03/25 16:24 03/03/25 16:23 Nasal Cannula 1 03/03/25 15:00 Nasal Cannula 2 03/03/25 13:00 Nasal Cannula 2 03/03/25 12:57 03/03/25 12:57 03/03/25 12:00 Nasal Cannula 2 03/03/25 11:00 Nasal Cannula 2 Intake and Output 03/03/25 03/04/25 03/04/25 23:59 07:59 15:59 Intake Total 310 / 950 400 / 820 420 / 820 Output Total 0 / 0 Balance 310 / -700 400 / 820 420 / 820 Intake: Intake, Oral Amount 310 / 950 400 / 820 420 / 820 Output: Output, Urine Amount 0 / 0 Other: Number of Unmeasured Voids 1 0 Weight 54.839 kg Patient Weight 03/04/25 23:59 Weight 54.839 kg Laboratory Results - last 24 hr 03/03/25 05:25: Chlamy pneumoniae PCR Not detected, Adenovirus (PCR) Not detected, B. pertussis DNA (PCR) Not detected, Coronavirus OC43 (PCR) Not detected, Coronavirus HKU1 (PCR) Not detected, Coronavirus 229E (PCR) Not detected, SARS-CoV-2 (PCR) Not detected, Coronavirus NL63 (PCR) Not detected, Human Metapneumovir PCR Not detected, Influenza A (H1) PCR Not detected, Influ A (H1N1/09) PCR Not detected, Influenza A (H3) PCR Not detected, Influenza Type A (PCR) Not detected, Influenza Type B (PCR) Not detected, M. pneumoniae (PCR) Not detected, Parainfluenza 1 (PCR) Not detected, Parainfluenza 2 (PCR) Not detected, Parainfluenza 3 (PCR) Not detected, Parainfluenza 4 (PCR) Not detected, RSV (PCR) Not detected, Entero/Rhino (PCR) Not detected 03/03/25 06:38: Total Counted 100, Neutrophils % (Manual) 97 H, Lymphocytes % (Manual) 3 L, Platelet Estimate Normal, Hypochromasia 1+, Poikilocytosis 1+, Anisocytosis 1+, Ovalocytes 1+ 03/04/25 05:31: WBC 10.9 H, RBC 3.74 L, Hgb 9.2 L D, Hct 31.1 L, MCV 83.2, MCH 24.3 L, MCHC 29.3 L, RDW 22.9 H, Plt Count 268, MPV 10.5 H, Neut % (Auto) 68.3, Lymph % (Auto) 21.3, [place] % (Auto) 8.7, Eos % (Auto) 0.9, Baso % (Auto) 0.3, Neut # (Auto) 7.4, Lymph # (Auto) 2.3, [place] # (Auto) 0.9, Eos # (Auto) 0.1, Baso # (Auto) 0.0, Sodium 136, Potassium 3.6, Chloride 97 L, Carbon Dioxide 33 H, Anion Gap 9.6, BUN 24 H D, Creatinine 2.10 H D, Estimated Creat Clear 20, Estimated GFR 23 L, Est GFR ( Amer) 28 L D, Glucose 120 H D, Calcium 7.9 L, Total Bilirubin 0.1 L, AST 25, ALT 16, Alkaline Phosphatase 100, Total Protein 5.6 L, Albumin 3.6 D, Globulin 2.0, Albumin/Globulin Ratio 1.8 I & O for Labs for Last 24 Hours: Intake & Output 03/01/25 03/02/25 03/03/25 03/04/25 23:59 23:59 23:59 23:59 Intake Total 550 / 950 820 / 820 Output Total 1650 / 1650 0 / 0 Balance -1100 / -700 820 / 820 Weight 52.163 kg 49.94 kg 54.839 kg Assessment and Plan *Assessment and plan (1) Acute on chronic respiratory failure with hypoxia and hypercapnia: Status: Acute Category: Medical Code(s): J96.21 - Acute and chronic respiratory failure with hypoxia; J96.22 - Acute and chronic respiratory failure with hypercapnia (2) Acute on chronic heart failure with preserved ejection fraction (HFpEF): Status: Acute Category: Medical Code(s): I50.33 - Acute on chronic diastolic (congestive) heart failure (3) COPD exacerbation: Status: Acute Category: Medical Code(s): J44.1 - Chronic obstructive pulmonary disease with (acute) exacerbation (4) Anxiety: Status: Acute Category: Medical Code(s): F41.9 - Anxiety disorder, unspecified (5) Flash pulmonary edema: Status: Acute Category: Medical Code(s): J81.0 - Acute pulmonary edema (6) Iron deficiency anemia: Status: Acute Qualifiers: Iron deficiency anemia type: unspecified iron deficiency Qualified Code(s): D50.9 - Iron deficiency anemia, unspecified Category: Medical Code(s): D50.9 - Iron deficiency anemia, unspecified (7) [place] (acute kidney injury): Status: Acute Category: Medical Code(s): N17.9 - Acute kidney failure, unspecified Plan L[place] is a 74-year-old female with medical history significant for severe emphysema/COPD on 2L as needed, HFpEF, hypertension, iron deficiency anemia, mo od disorder who presents with acute onset dyspnea that began last night. Patient states she felt weak without significant symptom burden until later that day when she began to have worsening shortness of breath. Her daughter apparently thought her face was turning blue at which point EMS was called. Of note, patient was recently discharged from our facility 4 days ago in stable condition. She was treated for COPD and HFpEF exacerbation and discharged on room air. She states she has been taking her medications at home, including Trelegy and Lasix. Additionally, she states she has been having nonproductive cough over the past few days. No recent changes in lifestyle, no new pets, relocation. No recent sick contacts. Denies fever/chills, chest pain. Workup in the ED significant for unremarkable VBG showing mild chronic hypercapnia, CXR showing slightly worsening interstitial infiltrates compared to last CXR 3 days ago, BNP 4860. Otherwise CBC, CMP unremarkable. Patient was given DuoNebs x 3, Solu-Medrol, Lasix 80 mg but continued to have increased work of breathing, accessory muscle use, and apparent restricted airway. She was requiring 2 L at this time. Case discussed with ED provider and decision was made to admit patient for further evaluation of acute on chronic hypoxic respiratory failure. #Acute on chronic hypoxic respiratory failure #Suspected HFpEF exacerbation, flash pulmonary edema #Hypertensive emergency #COPD #Possible aspiration pneumonitis #Possible vocal cord dysfunction ? Patient presents with acute onset dyspnea, apparent cyanotic face at home. Has had multiple similar presentations in the past 2 months. ? Given recurrent similar presentations, there is some suspicion of aspiration and/or vocal cord dysfunction. ?Initially came in with HFpEF, flash pulmonary edema potentially. Hypertensive with BPs 200s/120s. Patient was given 80 mg IV Lasix in the ED, continued yesterday Lasix 40 mg twice daily. Patient diuresed well, but became hypotensive due to aggressive diuresis and increase in blood pressure medication. Patient's blood pressure medications and diuresis were held. And blood pressure has normalized. Patient was transition to the stepdown unit for closer monitoring. Currently holding carvedilol 25 twice daily, Imdur 60 mg, Ibersartan 75 mg, and Lasix 40 mg twice daily. ?Patient currently on 1 L nasal cannula maintaining oxygen saturation above 90%. ? ECHO 02/12/2025 revealed normal biventricular systolic function, and no significant diastolic dysfunction. LVEF 55%. ? Uncontrolled hypertension could also be sequela of known uncontrolled anxiety at home. See separate problem. ? Speech therapy consulted, pending further recommendations. Patient did not demonstrate any overt signs or symptoms of aspiration. Recommendations for thin liquids/regular diet to be continued. ? ENT evaluation previously recommended by pulmonology for possible vocal cord paralysis. Since there is evidence of flash pulmonary edema, will defer this as outpatient evaluation unless pulmonology recommends inpatient evaluation. ? Resume home Trelegy, DuoNebs every 6 hours scheduled. Will hold off on Pulmicort, steroids at this time pending pulmonology evaluation. Low concern for COPD exacerbation. ? Follow-up respiratory panel is negative. ? Pulmonology consulted, pending further recommendations. ? Cardiology consulted, per cardiology they will sign off on patient. Discharge patient home with Lasix 40 mg twice daily, follow-up in 1 week for reevaluation. ? Follow-up morning CMP. ? Patient had chest x-ray 03/02, repeat 03/03 both showed no abnormalities. ? Patient's white count is stable, 10.9. Will continue to monitor, CBC in the a.m. #Uncontrolled anxiety ? Patient has known uncontrolled anxiety, takes sertraline 200 mg daily and was started on bupropion 75 mg twice daily on last admission. Possibly contributing to uncontrolled hypertension at home. ? Will switch sertraline to Lexapro 20 mg, discontinue bupropion as it can worsen anxiety. ? Started buspirone 5 mg 3 times daily, hydroxyzine 25 mg 3 times daily as needed. ? Will need close follow-up with psychiatry outpatient. #Iron deficient anemia ? Patient has known iron deficient anemia, will continue to monitor. ? Continue weekly infusions of Venofer, next appointment on 03/05/2025 at 11 AM. Plans to infuse tomorrow during admission. ? Hemoglobin 9.2, MCV 83.2. Stable. ?Continue to trend CBC. #Acute kidney injury ? Patient baseline kidney function BUN 15, creatinine 1.00. Patient was aggressively diuresed yesterday, kidney function worsened BUN 24, creatinine 2.1. Holding diuresis today for further monitoring ? Will check BMP tonight, and in the a.m. and assess for further diuresis as needed. Full code DVT prophylaxis: Lovenox 40 PT/OT consulted?ambulate as tolerated
--- NOTE | 2025-03-04 11:02 | PC.NURSE ---
patient's room air sat is 88% while at rest. Pplaced back on 1L nasal cannula.
--- NOTE | 2025-03-04 14:42 | PC.NURSE ---
PT LEFT UNIT BY WHEELCHAIR TO TRANSFER TO MED SURG
--- NOTE | 2025-03-04 14:44 | PC.NURSE ---
arrived to floor (room 216) from ICU
[2025-03-04] MEDS: CARVEDILOL 25MG TABLET 25 MG PO (18:25)
[2025-03-04 18:29] LABS: Chloride 97 mmol/L (98-107); Potassium 3.1 mmoL/L (3.5-5.1); Sodium 134 mmol/L (136-145)
[2025-03-04 18:32] LABS: Anion Gap 8.1 mEq/L (5-15); Blood Urea Nitrogen 26 mg/dl (7-17); Carbon Dioxide 32 mmol/L (22.0-30.0); Creatinine Clearance Estimated 25 mL/min (50-200); Creatinine,Serum 1.70 mg/dl (0.52-1.04); Estimated Glomerular Filt Rate 29 ml/min (>60); GFR (African American) 35 ML/MIN (>60)
[2025-03-04 18:33] LABS: Calcium 7.8 mg/dl (8.4-10.2); Glucose 120 mg/dl (74-100)
[2025-03-04] MEDS: ONDANSETRON 4MG/2ML VIAL 4 MG IV (19:19)
[2025-03-04] MEDS: ATORVASTATIN 40MG TABLET 40 MG PO (20:13)
[2025-03-04] MEDS: MONTELUKAST SODIUM 10MG TAB 10 MG PO (20:13)
[2025-03-05] VITALS (8 sets, daily range): BP systolic 101–155; BP diastolic 50–70; PULSE 50–70; RESP 16–21; TEMP 36.5–36.7; O2SAT 1–95; BMI 22.1
[2025-03-05] MEDS: POTASSIUM CHLORIDE 20MEQ TAB 40 MEQ PO ×3 (01:26→08:55)
[2025-03-05 05:46] LABS: Hematocrit 31.7 % (37.0-47.0); Hemoglobin 9.0 g/dL (12.2-16.2); Immature Granulocytes % 0.3 %; Mean Corpuscular HGB Conc 28.4 g/dL (31.8-35.4); Mean Corpuscular Hemoglobin 24.1 pg (27.0-31.2); Mean Corpuscular Volume 84.8 fl (81-99); Nucleated Red Blood Cells % 0 %; Platelet Count 243 K/mm3 (142-424); Red Blood Count 3.74 M/mm3 (4.20-5.40); Red Cell Distribution Width-SD 69.7 fL; White Blood Count 7.9 K/mm3 (4.8-10.8)
[2025-03-05 05:51] LABS: Alanine Aminotransferase 14 U/L (12-78); Albumin Level 3.4 g/dl (3.5-5.0); Albumin/Globulin Ratio 1.7 (1.1-1.8); Alkaline Phosphatase 129 U/L (38-126); Anion Gap 8.9 mEq/L (5-15); Aspartate Amino Transferase 58 U/L (14-36); Bilirubin,Total 0.5 mg/dl (0.2-1.3); Blood Urea Nitrogen 24 mg/dl (7-17); Calcium 7.8 mg/dl (8.4-10.2); Carbon Dioxide 29 mmol/L (22.0-30.0); Chloride 102 mmol/L (98-107); Creatinine Clearance Estimated 29 mL/min (50-200); Creatinine,Serum 1.40 mg/dl (0.52-1.04); Estimated Glomerular Filt Rate 37 ml/min (>60); GFR (African American) 44 ML/MIN (>60); Globulin 2.0 g/dL (1.3-3.2); Glucose 87 mg/dl (74-100); Potassium 3.9 mmoL/L (3.5-5.1); Sodium 136 mmol/L (136-145); Total Protein,Serum 5.4 g/dl (6.3-8.2)
[2025-03-05 06:01] LABS: Magnesium 1.6 mg/dl (1.6-2.3)
[2025-03-05] MEDS: FLUTICASONE/UMECLIDIN/VILANTER 100/62.5/25MCG INHALER 1 PUFF IH (06:09)
[2025-03-05] MEDS: MAGNESIUM SULFATE IN WATER 2 GM/50 ML PIGGYBACK IV ×2 (08:49→10:43)
[2025-03-05] MEDS: CARVEDILOL 25MG TABLET 25 MG PO ×2 (08:50→18:11)
[2025-03-05] MEDS: BUSPIRONE HCL 5 MG TABLET PO ×3 (08:50→20:16)
[2025-03-05] MEDS: CLOPIDOGREL 75MG TAB 75 MG PO (08:50)
[2025-03-05] MEDS: EMPAGLIFLOZIN 10MG TABLET 10 MG PO (08:51)
[2025-03-05] MEDS: ESCITALOPRAM 20MG TABLET 20 MG PO (08:51)
[2025-03-05] MEDS: SPIRONOLACTONE 25MG TABLET 25 MG PO (08:52)
[2025-03-05] MEDS: POLYETHYLENE GLYCOL 3350 17 GM PACKET PO (08:52)
[2025-03-05] MEDS: APAP/HYDROCODONE 325MG/7.5MG TAB 1 TAB PO ×2 (09:05→20:21)
--- NOTE | 2025-03-05 09:22 | EXP.ACUTE.PN ---
Subjective *Date: 03/05/25 *Time: 12:16 Interval history: Patient resting in bed, states she feels well. Shortness of breath is improved. Kidney function is improved today, creatinine 1.4. Will continue with holding BP meds, restarting diuresis with Lasix. Medical Exam Vital signs and Labs for Last 24 Hours: Vital Signs Temp Pulse Pulse Resp BP BP Pulse Ox 03/05/25 06:28 03/05/25 06:10 92 L 03/05/25 05:00 03/05/25 04:00 50 L 03/05/25 04:00 98.1 F 61 21 124/61 95 03/05/25 03:00 03/05/25 01:00 03/05/25 00:00 03/05/25 00:00 98.1 F 64 17 118/55 L 91 L 03/05/25 00:00 60 03/04/25 23:00 03/04/25 21:00 03/04/25 20:00 03/04/25 20:00 98.2 F 63 19 104/55 L 96 03/04/25 18:43 03/04/25 17:10 03/04/25 16:00 95 03/04/25 16:00 97.6 F 70 20 121/61 95 03/04/25 15:00 03/04/25 13:00 03/04/25 12:00 98.7 F 74 17 129/54 L 93 L 03/04/25 12:00 70 03/04/25 11:00 03/04/25 11:00 88 L 03/04/25 10:01 75 21 149/72 H 94 L 03/04/25 09:30 70 21 119/63 91 L O2 Del Method O2 Flow Rate 03/05/25 06:28 Room Air 03/05/25 06:10 Nasal Cannula 2 03/05/25 05:00 Nasal Cannula 1 03/05/25 04:00 03/05/25 04:00 Nasal Cannula 1 03/05/25 03:00 Nasal Cannula 1 03/05/25 01:00 Nasal Cannula 1 03/05/25 00:00 Nasal Cannula 1 03/05/25 00:00 Nasal Cannula 1 03/05/25 00:00 03/04/25 23:00 Nasal Cannula 1 03/04/25 21:00 Nasal Cannula 1 03/04/25 20:00 Nasal Cannula 1 03/04/25 20:00 Nasal Cannula 1 03/04/25 18:43 Nasal Cannula 1 03/04/25 17:10 Nasal Cannula 1 03/04/25 16:00 Nasal Cannula 1 03/04/25 16:00 Nasal Cannula 1 03/04/25 15:00 Nasal Cannula 1 03/04/25 13:00 Nasal Cannula 1 03/04/25 12:00 Nasal Cannula 1 03/04/25 12:00 03/04/25 11:00 Nasal Cannula 1 03/04/25 11:00 Room Air 03/04/25 10:01 Nasal Cannula 1 03/04/25 09:30 Nasal Cannula 1 Intake and Output 03/04/25 03/05/25 03/05/25 23:59 07:59 15:59 Intake Total 240 / 1260 Output Total 0 / 200 550 / 550 Balance 240 / 1060 -550 / -550 Intake: Intake, Oral Amount 240 / 1260 Output: Output, Urine Amount 0 / 200 550 / 550 Other: Number of Voids 0 Number of Unmeasured Voids 1 0 Weight 53.07 kg Patient Weight 03/05/25 23:59 Weight 53.07 kg Laboratory Results - last 24 hr 03/04/25 18:15: Sodium 134 L, Potassium 3.1 L, Chloride 97 L, Carbon Dioxide 32 H, Anion Gap 8.1, BUN 26 H, Creatinine 1.70 H, Estimated Creat Clear 25, Estimated GFR 29 L, Est GFR ( Amer) 35 L D, Glucose 120 H, Calcium 7.8 L 03/05/25 04:26: WBC 7.9 D, RBC 3.74 L, Hgb 9.0 L, Hct 31.7 L, MCV 84.8, MCH 24.1 L, MCHC 28.4 L, RDW 22.5 H, Plt Count 243, MPV 10.1, Neut % (Auto) 51.6, Lymph % (Auto) 31.6, [place] % (Auto) 9.5 H, Eos % (Auto) 6.7, Baso % (Auto) 0.3, Neut # (Auto) 4.1, Lymph # (Auto) 2.5, [place] # (Auto) 0.8, Eos # (Auto) 0.5 H, Baso # (Auto) 0.0, Sodium 136, Potassium 3.9 D, Chloride 102, Carbon Dioxide 29, Anion Gap 8.9, BUN 24 H, Creatinine 1.40 H, Estimated Creat Clear 29, Estimated GFR 37 L, Est GFR ( Amer) 44 L D, Glucose 87 D, Calcium 7.8 L, Magnesium 1.6 D, Total Bilirubin 0.5, AST 58 H D, ALT 14, Alkaline Phosphatase 129 H, Total Protein 5.4 L, Albumin 3.4 L, Globulin 2.0, Albumin/Globulin Ratio 1.7 I & O for Labs for Last 24 Hours: Intake & Output 03/02/25 03/03/25 03/04/25 03/05/25 23:59 23:59 23:59 23:59 Intake Total 550 / 950 1260 / 1260 Output Total 1650 / 1650 0 / 200 550 / 550 Balance -1100 / -700 1260 / 1060 -550 / -550 Weight 52.163 kg 49.94 kg 54.839 kg 53.07 kg Constitutional: Present mild distress, chronically ill appearing and cooperative Head: Present atraumatic ENT: Present normal exam Neck: Present normal inspection Respiratory: Present decreased breath sounds, wheezes and symmetric chest movement; Absent crackles or able to speak in complete sentences Cardiac: Present Reg Rate and Rhythm GI: Present soft and normal bowel sounds; Absent distention or tenderness Rectal (female): Present deferred (female): Present deferred Extremities: Present normal inspection and edema (Bilateral lower extremity) Skin: Present intact Comment:: Scattered bruising Neuro: Present Weakness, alert, awake and oriented x 3 Assessment and Plan *Assessment and plan (1) Acute on chronic respiratory failure with hypoxia and hypercapnia: Status: Acute Category: Medical Code(s): J96.21 - Acute and chronic respiratory failure with hypoxia; J96.22 - Acute and chronic respiratory failure with hypercapnia (2) Acute on chronic heart failure with preserved ejection fraction (HFpEF): Status: Acute Category: Medical Code(s): I50.33 - Acute on chronic diastolic (congestive) heart failure (3) COPD exacerbation: Status: Acute Category: Medical Code(s): J44.1 - Chronic obstructive pulmonary disease with (acute) exacerbation (4) Anxiety: Status: Acute Category: Medical Code(s): F41.9 - Anxiety disorder, unspecified (5) Flash pulmonary edema: Status: Acute Category: Medical Code(s): J81.0 - Acute pulmonary edema (6) Iron deficiency anemia: Status: Acute Qualifiers: Iron deficiency anemia type: unspecified iron deficiency Qualified Code(s): D50.9 - Iron deficiency anemia, unspecified Category: Medical Code(s): D50.9 - Iron deficiency anemia, unspecified (7) [place] (acute kidney injury): Status: Acute Category: Medical Code(s): N17.9 - Acute kidney failure, unspecified Plan Loreta Santiago is a 74-year-old female with medical history significant for severe emphysema/COPD on 2L as needed, HFpEF, hypertension, iron deficiency anemia, mood disorder who presents with acute onset dyspnea that began last night. Patient states she felt weak without significant symptom burden until later that day when she began to have worsening shortness of breath. Her daughter apparently thought her face was turning blue at which point EMS was called. Of note, patient was recently discharged from our facility 4 days ago in stable condition. She was treated for COPD and HFpEF exacerbation and discharged on room air. She states she has been taking her medications at home, including Trelegy and Lasix. Additionally, she states she has been having nonproductive cough over the past few days. No recent changes in lifestyle, no new pets, relocation. No recent sick contacts. Denies fever/chills, chest pain. Workup in the ED significant for unremarkable VBG showing mild chronic hypercapnia, CXR showing slightly worsening interstitial infiltrates compared to last CXR 3 days ago, BNP 4860. Otherwise CBC, CMP unremarkable. Patient was given DuoNebs x 3, Solu-Medrol, Lasix 80 mg but continued to have increased work of breathing, accessory muscle use, and apparent restricted airway. She was requiring 2 L at this time. Case discussed with ED provider and decision was made to admit patient for further evaluation of acute on chronic hypoxic respiratory failure. #Acute on chronic hypoxic respiratory failure #Suspected HFpEF exacerbation, flash pulmonary edema #Hypertensive emergency #COPD #Possible aspiration pneumonitis #Possible vocal cord dysfunction ? Patient presents with acute onset dyspnea, apparent cyanotic face at home. Has had multiple similar presentations in the past 2 months. ? Given recurrent similar presentations, there is some suspicion of aspiration and/or vocal cord dysfunction. ?Initially came in with HFpEF, flash pulmonary edema potentially. Hypertensive with BPs 200s/120s. Patient was given 80 mg IV Lasix in the ED, continued yesterday Lasix 40 mg twice daily. Patient diuresed well, but became hypotensive due to aggressive diuresis and increase in blood pressure medication. Patient's blood pressure medications and diuresis were held. And blood pressure has normalized. Patient was transition to the stepdown unit for closer monitoring. Currently holding carvedilol 25 twice daily, Imdur 60 mg, Ibersartan 75 mg, and Lasix 40 mg twice daily. ?Patient currently on 1 L nasal cannula maintaining oxygen saturation above 90%. ? ECHO 02/12/2025 revealed normal biventricular systolic function, and no significant diastolic dysfunction. LVEF 55%. ? Uncontrolled hypertension could also be sequela of known uncontrolled anxiety at home. See separate problem. ? Speech therapy consulted, pending further recommendations. Patient did not demonstrate any overt signs or symptoms of aspiration. Recommendations for thin liquids/regular diet to be continued. ? ENT evaluation previously recommended by pulmonology for possible vocal cord paralysis. Since there is evidence of flash pulmonary edema, will defer this as outpatient evaluation unless pulmonology recommends inpatient evaluation. ? Resume home Trelegy, DuoNebs every 6 hours scheduled. Will hold off on Pulmicort, steroids at this time pending pulmonology evaluation. Low concern for COPD exacerbation. ? Follow-up respiratory panel is negative. ? Pulmonology consulted, recommendations for Trelegy 100 inhaler, DuoNebs 4 times daily as needed. ? Cardiology consulted, per cardiology they will sign off on patient. Discharge patient home with Lasix 40 mg twice daily, follow-up in 1 week for reevaluation. ? Follow-up morning CMP. ? Patient had chest x-ray 03/02, repeat 03/03 both showed no abnormalities. ? Patient's white count is stable, 7.9. Will continue to monitor, CBC in the a.m. #Uncontrolled anxiety ?Patient has known uncontrolled anxiety, currently takes sertraline 200 mg and Wellbutrin 75 mg twice daily. Switched to Lexapro 20 mg, buspirone 5 mg 3 times daily and hydroxyzine 25 mg 3 times daily as needed for better anxiety control. ? Patient states anxiety has been minimal, but does endorse when she is at the hospital she feels better because she knows she has been taking care of. ? Outpatient behavioral health appointment at discharge. #Iron deficient anemia ? Patient has known iron deficient anemia, hemoglobin has been stable, today 9.0. Patient is receiving Venofer weekly x 5 weeks. Will transfuse Venofer today for weekly dose. ? Continue to monitor CBC. #Acute kidney injury ?Patient baseline kidney function creatinine 1.00. She was aggressively diuresed on admission, creatinine bumped to 2.1. Diuresis was held yesterday, kidney function much improved today, creatinine 1.4. Will continue with diuresis today. ? Lasix 40 mg IV twice daily for continued diuresis. Full code DVT prophylaxis: Lovenox 40 PT/OT consulted?ambulate as tolerated
[2025-03-05] MEDS: IRON SUCROSE COMPLEX 200 MG in 0.9 % SODIUM CHLORIDE 100 ML 220 MG IV (10:44)
[2025-03-05] MEDS: FUROSEMIDE 40MG/4ML VIAL 40 MG IV ×2 (11:05→18:11)
[2025-03-05] MEDS: RIVASTIGMINE 4.6MG/24HR PATCH 1 EACH TD (13:09)
--- NOTE | 2025-03-05 13:29 | P.PN_ITS ---
Subjective *Date: 03/05/25 *Time: 13:29 Interval history: No acute respiratory events overnight. Patient denies any new respiratory complaints. Pulmonology Exam Inpatient Vital signs and Labs for Last 24 Hours: Temp Pulse Resp BP Pulse Ox O2 Del Method O2 Flow Rate 98.0 F 68 18 155/53 H 1 L Nasal Cannula 1 03/05/25 08:00 03/05/25 08:00 03/05/25 08:00 03/05/25 08:00 03/05/25 08:00 03/05/25 11:00 03/05/25 11:00 FiO2 28 03/03/25 03:34 Laboratory Results - last 24 hr 03/04/25 18:15: Sodium 134 L, Potassium 3.1 L, Chloride 97 L, Carbon Dioxide 32 H, Anion Gap 8.1, BUN 26 H, Creatinine 1.70 H, Estimated Creat Clear 25, Estimated GFR 29 L, Est GFR ( Amer) 35 L D, Glucose 120 H, Calcium 7.8 L 03/05/25 04:26: WBC 7.9 D, RBC 3.74 L, Hgb 9.0 L, Hct 31.7 L, MCV 84.8, MCH 24.1 L, MCHC 28.4 L, RDW 22.5 H, Plt Count 243, MPV 10.1, Neut % (Auto) 51.6, Lymph % (Auto) 31.6, [place] % (Auto) 9.5 H, Eos % (Auto) 6.7, Baso % (Auto) 0.3, Neut # (Auto) 4.1, Lymph # (Auto) 2.5, [place] # (Auto) 0.8, Eos # (Auto) 0.5 H, Baso # (Auto) 0.0, Sodium 136, Potassium 3.9 D, Chloride 102, Carbon Dioxide 29, Anion Gap 8.9, BUN 24 H, Creatinine 1.40 H, Estimated Creat Clear 29, Estima thaddeus GFR 37 L, Est GFR ( Amer) 44 L D, Glucose 87 D, Calcium 7.8 L, Magnesium 1.6 D, Total Bilirubin 0.5, AST 58 H D, ALT 14, Alkaline Phosphatase 129 H, Total Protein 5.4 L, Albumin 3.4 L, Globulin 2.0, Albumin/Globulin Ratio 1.7 Temp Pulse Resp BP Pulse Ox O2 Del Method O2 Flow Rate 98.5 F 70 24 121/51 L 96 Nasal Cannula 1 03/04/25 08:00 03/04/25 08:17 03/04/25 08:00 03/04/25 08:00 03/04/25 08:53 03/04/25 09:00 03/04/25 09:00 FiO2 28 03/03/25 03:34 Laboratory Results - last 24 hr 03/03/25 05:25: Chlamy pneumoniae PCR Not detected, Adenovirus (PCR) Not detected, B. pertussis DNA (PCR) Not detected, Coronavirus OC43 (PCR) Not detected, Coronavirus HKU1 (PCR) Not detected, Coronavirus 229E (PCR) Not detected, SARS-CoV-2 (PCR) Not detected, Coronavirus NL63 (PCR) Not detected, Human Metapneumovir PCR Not detected, Influenza A (H1) PCR Not detected, Influ A (H1N1/09) PCR Not detected, Influenza A (H3) PCR Not detected, Influenza Type A (PCR) Not detected, Influenza Type B (PCR) Not detected, M. pneumoniae (PCR) Not detected, Parainfluenza 1 (PCR) Not detected, Parainfluenza 2 (PCR) Not detected, Parainfluenza 3 (PCR) Not detected, Parainfluenza 4 (PCR) Not detected, RSV (PCR) Not detected, Entero/Rhino (PCR) Not detected 03/03/25 06:38: Total Counted 100, Neutrophils % (Manual) 97 H, Lymphocytes % (Manual) 3 L, Platelet Estimate Normal, Hypochromasia 1+, Poikilocytosis 1+, Anisocytosis 1+, Ovalocytes 1+ 03/04/25 05:31: WBC 10.9 H, RBC 3.74 L, Hgb 9.2 L D, Hct 31.1 L, MCV 83.2, MCH 24.3 L, MCHC 29.3 L, RDW 22.9 H, Plt Count 268, MPV 10.5 H, Neut % (Auto) 68.3, Lymph % (Auto) 21.3, [place] % (Auto) 8.7, Eos % (Auto) 0.9, Baso % (Auto) 0.3, Neut # (Auto) 7.4, Lymph # (Auto) 2.3, [place] # (Auto) 0.9, Eos # (Auto) 0.1, Baso # (Auto) 0.0, Sodium 136, Potassium 3.6, Chloride 97 L, Carbon Dioxide 33 H, Anion Gap 9.6, BUN 24 H D, Creatinine 2.10 H D, Estimated Creat Clear 20, Estimated GFR 23 L, Est GFR ( Amer) 28 L D, Glucose 120 H D, Calcium 7.9 L, Total Bilirubin 0.1 L, AST 25, ALT 16, Alkaline Phosphatase 100, Total Protein 5.6 L, Albumin 3.6 D, Globulin 2.0, Albumin/Globulin Ratio 1.8 I & O for Labs for Last 24 Hours: Intake & Output 03/02/25 03/03/25 03/04/25 03/05/25 23:59 23:59 23:59 23:59 Intake Total 550 / 950 1260 / 1260 0 / 0 Output Total 1650 / 1650 0 / 200 550 / 550 Balance -1100 / -700 1260 / 1060 -550 / -550 Weight 115 lb 110 lb 1.582 oz 120 lb 14.4 oz 117 lb Intake & Output 03/01/25 03/02/25 03/03/25 03/04/25 23:59 23:59 23:59 23:59 Intake Total 550 / 950 820 / 820 Output Total 1650 / 1650 0 / 0 Balance -1100 / -700 820 / 820 Weight 115 lb 110 lb 1.582 oz 120 lb 14.4 oz Constitutional: Present mild distress Head: Present normocephalic and atraumatic ENT: Present normal exam, normal oropharynx and mucous membranes moist Neck: Present normal inspection and full ROM Respiratory: Present able to speak in complete sentences; Absent prolonged expiratory phase, respiratory distress, wheezes or diminished air movement Cardiac: Present S1/S2, Tachycardia and radial pulses present GI: Present soft and distention; Absent tenderness or guarding Rectal (female): Present deferred (female): Present deferred Skin: Present intact; Absent cyanosis or jaundice Neuro: Present alert, awake and oriented x 3 Extremities: Present normal inspection; Absent clubbing or cyanosis Psychiatric: Present normal affect and cooperative Assessment and Plan *Assessment and plan (1) Flash pulmonary edema: Status: Acute Category: Medical Code(s): J81.0 - Acute pulmonary edema (2) Acute on chronic respiratory failure with hypoxia and hypercapnia: Status: Acute Category: Medical Code(s): J96.21 - Acute and chronic respiratory failure with hypoxia; J96.22 - Acute and chronic respiratory failure with hypercapnia Plan Ms. Santiago is a 74-year-old male greater than [id number] smoking history COPD on triple inhaler therapy, uncontrolled hypertension, anxiety issues multiple hospital admissions recently for hypercarbic respiratory failure presented to the ER again with respiratory distress and pulmonary was called for further evaluation and management. Patient denies any worsening cough or any productive phlegm. Denies any worsening wheezing. Admits compliance with his inhaler therapy upon her recent discharge Patient appeared to be hypertensive upon admission with bilateral interstitial infiltrates with significant improvement with diuretics. Afebrile. Hemodynamically stable. No evidence of leukocytosis. Comprehensive respiratory viral PCR panel negative. Chest x-ray upon admission no dense consolidative/airspace changes. Auscultation clear with no significant wheezing noted this morning. Interval update: No acute respiratory events overnight. Continued to remain on nasal cannula 1 L saturating 92%. Chest clear to auscultate with no significant wheezing. Continue to receive inhaler therapies. Plan: Trelegy 100 inhaler along with DuoNebs 4 times daily as needed Agree with not initiating antibiotics or steroids at this point of time. ENT evaluation for possible local Dysfunction as an outpatient basis Behavioral health and hematology follow-up as an outpatient basis # Thank you for involving pulmonary in this patient care. Follow patient in pulmonary clinic 1 to 2 weeks postdischarge.
[2025-03-05] MEDS: ATORVASTATIN 40MG TABLET 40 MG PO (20:16)
[2025-03-05] MEDS: MONTELUKAST SODIUM 10MG TAB 10 MG PO (20:17)
[2025-03-05 21:04] LABS: POC Glucose,Bedside 101 (70-110)
[2025-03-06] VITALS: PULSE 60; O2SAT 93
[2025-03-06 04:00] VITALS: BP 156/40; PULSE 60; PULSE 64; RESP 16; TEMP 36.8; O2SAT 95; BMI 22.2
--- NOTE | 2025-03-06 04:14 | PC.NURSE ---
0416 Blue bags have been emptied, table wiped and ice filled. Patient does not need anything at this time.
[2025-03-06 06:13] VITALS: O2SAT 87
[2025-03-06] MEDS: FLUTICASONE/UMECLIDIN/VILANTER 100/62.5/25MCG INHALER 1 PUFF IH (06:13)
[2025-03-06 06:24] LABS: Hematocrit 33.7 % (37.0-47.0); Hemoglobin 9.9 g/dL (12.2-16.2); Immature Granulocytes % 0.2 %; Mean Corpuscular HGB Conc 29.4 g/dL (31.8-35.4); Mean Corpuscular Hemoglobin 24.7 pg (27.0-31.2); Mean Corpuscular Volume 84.0 fl (81-99); Nucleated Red Blood Cells % 0 %; Platelet Count 280 K/mm3 (142-424); Red Blood Count 4.01 M/mm3 (4.20-5.40); Red Cell Distribution Width-SD 68.4 fL; White Blood Count 8.4 K/mm3 (4.8-10.8)
[2025-03-06 06:59] LABS: Alanine Aminotransferase 15 U/L (12-78); Albumin Level 3.6 g/dl (3.5-5.0); Albumin/Globulin Ratio 1.6 (1.1-1.8); Alkaline Phosphatase 92 U/L (38-126); Anion Gap 6.1 mEq/L (5-15); Aspartate Amino Transferase 33 U/L (14-36); Bilirubin,Total 0.2 mg/dl (0.2-1.3); Blood Urea Nitrogen 23 mg/dl (7-17); Calcium 8.8 mg/dl (8.4-10.2); Carbon Dioxide 35 mmol/L (22.0-30.0); Chloride 100 mmol/L (98-107); Creatinine Clearance Estimated 29 mL/min (50-200); Creatinine,Serum 1.40 mg/dl (0.52-1.04); Estimated Glomerular Filt Rate 37 ml/min (>60); GFR (African American) 44 ML/MIN (>60); Globulin 2.2 g/dL (1.3-3.2); Glucose 95 mg/dl (74-100); Potassium 5.1 mmoL/L (3.5-5.1); Sodium 136 mmol/L (136-145); Total Protein,Serum 5.8 g/dl (6.3-8.2)
[2025-03-06 08:00] VITALS: BP 135/48; PULSE 60; PULSE 63; RESP 16; TEMP 36.7; O2SAT 97
[2025-03-06] MEDS: EMPAGLIFLOZIN 10MG TABLET 10 MG PO (08:37)
[2025-03-06] MEDS: BUSPIRONE HCL 5 MG TABLET PO ×2 (08:37→15:04)
[2025-03-06] MEDS: SPIRONOLACTONE 25MG TABLET 25 MG PO (08:37)
[2025-03-06] MEDS: ESCITALOPRAM 20MG TABLET 20 MG PO (08:38)
[2025-03-06] MEDS: CLOPIDOGREL 75MG TAB 75 MG PO (08:38)
[2025-03-06] MEDS: FUROSEMIDE 40MG/4ML VIAL 40 MG IV (08:38)
[2025-03-06] MEDS: POLYETHYLENE GLYCOL 3350 17 GM PACKET PO (08:39)
[2025-03-06] MEDS: APAP/HYDROCODONE 325MG/7.5MG TAB 1 TAB PO (08:53)
[2025-03-06 10:01] LABS: Magnesium 2.3 mg/dl (1.6-2.3)
--- NOTE | 2025-03-06 11:33 | P.DS_ITS ---
<Statement entered by Hina Montgomery MD - 03/08/25 17:20> Agree with VOICE OVER ANNOUNCER note as documented General Admission date:: 03/04/25 Discharge date: 03/06/25 HPI HPI HPI: Loreta Santiago is a 74-year-old female with medical history significant for severe emphysema/COPD on 2L as needed, HFpEF, hypertension, iron deficiency anemia, mood disorder who presents with acute onset dyspnea that began last night. Patient states she felt weak yesterday without significant symptom burden until later in the evening when she began to have worsening shortness of breath. Her daughter apparently thought her face was turning blue at which point EMS was called. Of note, patient was recently discharged from our facility 4 days ago in stable condition. She was treated for COPD and HFpEF exacerbation and d ischarged on room air. She states she has been taking her medications at home, including Trelegy and Lasix. Additionally, she states she has been having nonproductive cough over the past few days. No recent changes in lifestyle, no new pets, relocation. No recent sick contacts. Denies fever/chills, chest pain. Workup in the ED significant for unremarkable VBG showing mild chronic hypercapnia, CXR showing slightly worsening interstitial infiltrates compared to last CXR 3 days ago, BNP 4860. Otherwise CBC, CMP unremarkable. Patient was given DuoNebs x 3, Solu-Medrol, Lasix 80 mg but continued to have increased work of breathing, accessory muscle use, and apparent restricted airway. She was requiring 2 L at this time. Case discussed with ED provider and decision was made to admit patient for further evaluation of acute on chronic hypoxic respiratory failure. Hospital Course Hospital Course Hospital Course: Ms. Loreta Santiago is a 74-year-old female who presented to the hospital with worsening shortness of breath and acute onset dyspnea at home. She has had multiple hospitalizations over the last few months due to her emphysema/COPD and acute on chronic HFpEF exacerbations. Cardiology and pulmonology were consulted. Scans concerning for flash pulmonary edema, patient was also found to be hypertensive. Patient was diuresed with Lasix 40 mg twice daily. Blood pressure normalized with diuresis. Patient baseline on supplemental O2 at home. She has maintained O2 saturations greater than 90% on room air and supplemental 1 L O2. She does have uncontrolled anxiety for which she takes sertraline 200 mg and Wellbutrin 75 mg twice daily. During her admission she was switched to Lexapro 20 mg daily, buspirone 5 mg 3 times daily, and hydroxyzine 25 mg 3 times daily as needed. Discussed with patient in length the need for behavioral health follow-up and continued medical management of anxiety. Patient states that during her admission she had decreased anxiety and she feels the new medication regimen may be helping. Cardiology consulted and recommends patient be discharged on Lasix 40 mg twice daily and follow-up in 1 week. Patient's recent echo on 02/12/2025 showed normal BiV systolic function and LVEF of 55%. Pulmonology consulted and recommended Trelegy 100 inhaler, and DuoNebs 4 times a day as needed. Patient does have known iron deficiency anemia, she has been receiving Venofer IV for a total of 5 doses. She received her third dose yesterday, scheduled for next week for her fourth dose. Hemoglobin remained stable throughout visit. Hemoglobin 9.9 on day of discharge. Patient will follow-up with hematology as well. Patient baseline creatinine 1.1, creatinine day of discharge 1.4. Patient should monitor kidney function outpatient. Patient did have significant diuresis during admission. Exam Data for Last 24 hours Vital signs and Labs for Last 24 Hours: Temp Pulse Resp BP Pulse Ox O2 Del Method O2 Flow Rate 98.0 F 63 16 135/48 L 97 Nasal Cannula 1 03/06/25 08:00 03/06/25 08:00 03/06/25 08:00 03/06/25 08:00 03/06/25 08:00 03/06/25 09:00 03/06/25 09:00 FiO2 28 03/03/25 03:34 Laboratory Results - last 24 hr 03/05/25 20:58: POC Glucose 101 03/06/25 04:46: Magnesium 2.3 D 03/06/25 05:46: WBC 8.4, RBC 4.01 L, Hgb 9.9 L, Hct 33.7 L, MCV 84.0, MCH 24.7 L , MCHC 29.4 L, RDW 22.3 H, Plt Count 280, MPV 10.4, Neut % (Auto) 50.5, Lymph % (Auto) 30.6, [place] % (Auto) 9.0, Eos % (Auto) 9.3, Baso % (Auto) 0.4, Neut # (Auto) 4.2, Lymph # (Auto) 2.6, [place] # (Auto) 0.8, Eos # (Auto) 0.8 H, Baso # (Auto) 0.0, Sodium 136, Potassium 5.1 D, Chloride 100, Carbon Dioxide 35 H, Anion Gap 6.1, BUN 23 H, Creatinine 1.40 H, Estimated Creat Clear 29, Estimated GFR 37 L, Est GFR ( Amer) 44 L, Glucose 95, Calcium 8.8, Total Bilirubin 0.2, AST 33 D, ALT 15, Alkaline Phosphatase 92, Total Protein 5.8 L, Albumin 3.6, Globulin 2.2, Albumin/Globulin Ratio 1.6 I & O for Last 24 hours: Intake & Output 03/03/25 03/04/25 03/05/25 03/06/25 23:59 23:59 23:59 23:59 Intake Total 550 / 950 1260 / 1260 500 / 860 680 / 680 Output Total 1650 / 1650 0 / 200 2350 / 2350 850 / 850 Balance -1100 / -700 1260 / 1060 -1850 / -1490 -170 / -170 Weight 49.94 kg 54.839 kg 53.07 kg 53.524 kg Constitutional Constitutional: no acute distress, thin and cooperative *Routine HEENT Exam Head: Present normocephalic Eye: Present EOMI and PERRL ENT: Present mucous membranes moist *Routine Neck Exam Neck: Present supple; Absent lymphadenopathy *Routine Respiratory Exam Respiratory: Present CTA bilaterally, able to speak in complete sentences and symmetric chest movement *Routine Cardiovascular Exam Cardiovascular: Present RRR; Absent murmur *Routine Abdominal Exam Abdominal: Present soft and normoactive bowel sounds; Absent tenderness *Routine Rectal Exam Patient deferred: visual exam *Routine Exam Patient deferred: external exam *Routine Extremities Exam Extremities: Absent cyanosis, clubbing or edema *Routine Skin Exam Skin: Present intact and warm; Absent rash *Routine Neurological Exam Neurological: Present alert, oriented X3 and normal speech Results Data Completed and Pending Labs on day of discharge: Labs from last 24 hours 03/06/25 03/06/25 03/05/25 05:46 04:46 20:58 WBC 8.4 RBC 4.01 L Hgb 9.9 L Hct 33.7 L MCV 84.0 MCH 24.7 L MCHC 29.4 L RDW 22.3 H Plt Count 280 MPV 10.4 Neut % (Auto) 50.5 Lymph % (Auto) 30.6 [place] % (Auto) 9.0 Eos % (Auto) 9.3 Baso % (Auto) 0.4 Neut # (Auto) 4.2 Lymph # (Auto) 2.6 [place] # (Auto) 0.8 Eos # (Auto) 0.8 H Baso # (Auto) 0.0 Sodium 136 Potassium 5.1 D Chloride 100 Carbon Dioxide 35 H Anion Gap 6.1 BUN 23 H Creatinine 1.40 H Estimated Creat Clear 29 Estimated GFR 37 L Est GFR ( Amer) 44 L Glucose 95 POC Glucose 101 Calcium 8.8 Magnesium 2.3 D Total Bilirubin 0.2 AST 33 D ALT 15 Alkaline Phosphatase 92 Total Protein 5.8 L Albumin 3.6 Globulin 2.2 Albumin/Globulin Ratio 1.6 DS: Diagnosis Discharge Diagnosis (1) Flash pulmonary edema: Status: Acute Code(s): J81.0 - Acute pulmonary edema (2) Acute on chronic respiratory failure with hypoxia and hypercapnia: Status: Acute Code(s): J96.21 - Acute and chronic respiratory failure with hypoxia; J96.22 - Acute and chronic respiratory failure with hypercapnia (3) Anxiety: Status: Acute Code(s): F41.9 - Anxiety disorder, unspecified (4) E[place]ICO (acute kidney injury): Status: Acute Code(s): N17.9 - Acute kidney failure, unspecified (5) Hypertensive emergency: Status: Acute Code(s): I16.1 - Hypertensive emergency (6) Anemia: Status: Acute Code(s): D64.9 - Anemia, unspecified Qualifiers: Anemia type: iron deficiency Iron deficiency anemia type: chronic blood loss Qualified Code(s): D50.0 - Iron deficiency anemia secondary to blood loss (chronic) (7) Acute on chronic heart failure with preserved ejection fraction (HFpEF): Status: Acute Code(s): I50.33 - Acute on chronic diastolic (congestive) heart failure Meds Home Medications and Allergies Home Medications ?Medication ?Instructions ?Recorded ?Confirmed ?Type clopidogrel 75 mg tablet 75 mg PO DAILY 12/31/2302/05 History cyanocobalamin (vitamin B-12) 1,000 mcg PO DAILY 04/0203/03/25 History 1,000 mcg tablet meloxicam 15 mg tablet 15 mg PO DAILY 01/07/2502/05 History montelukast 10 mg tablet 10 mg PO HS 01/07/25 5 History furosemide 40 mg tablet 40 mg PO DAILY 30 days #30 t abs 01/17/25 03/03/25 Rx empagliflozin 10 mg tablet 10 mg PO DAILY 30 days #30 tabs 02/04/25 03/03/25 Rx (Jardiance) irbesartan 75 mg tablet 75 mg PO DAILY 30 days #30 t abs 02/04/25 03/03/25 Rx spironolactone 25 mg tablet 25 mg PO DAILY 30 days #30 tabs 02/04/25 03/03/25 Rx albuterol sulfate 90 mcg/actuation 2 inh inhalation QI DP PRN 02/12/25 03/03/25 History aerosol inhaler shortness of breath or wheez ing polyethylene glycol 3350 17 gram 17 g PO DAILY 30 days #30 ea 02/14/25 03/03/25 Rx oral powder packet (HealthyLax) rivastigmine 4.6 mg/24 hour 4.6 mg topical Q48H 03/03/25 History transdermal patch fluticasone fur. 100 mcg-umeclid 1 inh inhalation LINDSAY Y 90 days #60 02/20/25 03/03/25 Rx 62.5 mcg-vilant 25 mcg ea inhalat.powder (Trelegy Ellipta) ipratropium 0.5 mg-albuterol 3 mg 3 ml inhalation Q6HP PRN shortness 02/21/25 03/03/25 Rx (2.5 mg base)/3 mL nebulization of breath or wheezing 30 days #180 soln mL carvedilol 25 mg tablet 25 mg PO BIDWMEAL 02/25/25 0 03/03/25 History hydrocodone 7.5 mg-acetaminophen 1 tab PO Q8HP PRN Mil d Pain (Scale 02/25/25 03/03/25 History 325 mg tablet Score 1-4) atorvastatin 40 mg tablet 40 mg PO HS 30 days #30 tabs 03/06/25 Rx buspirone 5 mg tablet 5 mg PO TID 30 days #90 tabs 03/06/25 Rx escitalopram oxalate 20 mg tablet 20 mg PO DAILY 30 da ys #30 tabs 03/06/25 Rx furosemide 40 mg tablet (Lasix) 40 mg PO BID #60 tabs 03/06/25 Rx hydroxyzine pamoate 25 mg capsule 25 mg PO TIDP PRN An xiety 30 days 03/06/25 Rx #60 caps potassium chloride 20 mEq 20 meq PO DAILY #30 tabs Rx tablet,extended release(part/cryst) (Klor-Con M) New Prescriptions to Start Prescriptions: atorvastatin Tita Rodriguez buspirone Michael,Tita escitalopram oxalate Tita Rodriguez furosemide [Lasix] Tita Rodriguez hydroxyzine pamoate Tita Rodriguez potassium chloride [Klor-Con M20] Tita Rodriguez Allergies Allergy/AdvReac Type Severity Reaction Status Date / Time No Known Allergies Allergy Verified 02/20/25 13:44 Discharge Plan Disposition Patient Disposition: Home Health Service Condition: Fair Discharge Order Discharge Orders: Discharge Order (Routine); Ordered 03/06/25 Ordered By: Tita Rodriguez Follow up Plan Follow up with: Lissette Watkins APRN [Nurse Practitioner, Cardiology] - 03/13/25 9:45 am Rodriguez Wood MD [Physician, Ear, Nose, Throat] - 04/01/25 2:20 pm Rafi López MD [Staff Physician, Oncology] - 04/01/25 9:00 am Nora Vega MD [Physician, Pulmonology] - Enter time for follow up Referral Note: OFFICE WILL CALL WITH FOLLOW UP APPOINTMENT Call,MAURA Guardado [Nurse Practitioner, Behavioral Health] - 03/13/25 1:00 am Prescriptions/Medication Reconciliation: New buspirone 5 mg Tablet 5 mg PO TID 30 Days Qty: 90 0RF hydroxyzine pamoate 25 mg Capsule 25 mg PO TIDP PRN (Reason: Anxiety) 30 Days Qty: 60 0RF escitalopram oxalate 20 mg Tablet 20 mg PO DAILY 30 Days Qty: 30 0RF furosemide [Lasix] 40 mg tablet 40 mg PO BID Qty: 60 0RF potassium chloride [Klor-Con M20] 20 mEq tablet,ER particles/crystals 20 meq PO DAILY Qty: 30 0RF atorvastatin 40 mg Tablet 40 mg PO HS 30 Days Qty: 30 0RF Continued cyanocobalamin (vitamin B-12) 1,000 mcg tablet 1,000 mcg PO DAILY meloxicam 15 mg tablet 15 mg PO DAILY montelukast 10 mg tablet 10 mg PO HS Treleemily Ellipta 100-62.5-25 mcg blister with device 1 inh inhalation DAILY 90 Days Qty: 60 3RF ipratropium-albuterol 0.5 mg-3 mg(2.5 mg base)/3 mL solution for nebulization 3 ml inhalation Q6HP PRN (Reason: shortness of breath or wheezing) 30 Days Qty: 180 0RF furosemide 40 mg Tablet 40 mg PO DAILY 30 Days Qty: 30 3RF spironolactone 25 mg Tablet 25 mg PO DAILY 30 Days Qty: 30 0RF irbesartan 75 mg Tablet 75 mg PO DAILY 30 Days Qty: 30 0RF Jardiance 10 mg Tablet 10 mg PO DAILY 30 Days Qty: 30 0RF clopidogrel 75 mg tablet 75 mg PO DAILY albuterol sulfate 90 mcg/actuation HFA aerosol inhaler 2 inh inhalation QIDP PRN (Reason: shortness of breath or wheezing) rivastigmine 4.6 mg/24 hour Patch 24 Hour 4.6 mg topical Q48H Rx Instructions: changes every other day due to nausea polyethylene glycol 3350 [HealthyLax] 17 gram Powder In Packet 17 g PO DAILY 30 Days Qty: 30 0RF hydrocodone-acetaminophen 7.5-325 mg tablet 1 tab PO Q8HP PRN (Reason: Mild Pain (Scale Score 1-4)) carvedilol 25 mg tablet 25 mg PO BIDWMEAL Discontinued isosorbide mononitrate 60 mg tablet extended release 24 hr 60 mg PO DAILY Qty: 30 3RF atorvastatin 40 mg tablet 40 mg PO HS sertraline 100 mg tablet 200 mg PO DAILY bupropion HCl 75 mg Tablet 75 mg PO BID 30 Days Qty: 60 1RF Problem Reconciliation Problems Reviewed?: Yes Patient Discharge Instructions ACTIVITY: Continue current activity DIET: continue same diet and cardiac Additional Instructions: Venofer infusion on 03/12/2025 at 11 AM in the infusion department at [facility]. Patient Instructions: DI for Chronic Obstructive Pulmonary Disease, DI for Iron Deficiency Anemia-Adult, DI for Acute Kidney Injury, Stop Light COPD, Stop Light Heart Failure Print Language: Persian Providers Primary Care Provider: Provider,Referral Admit Provider: Mihai Son Attending Provider: Mihai Son
--- NOTE | 2025-03-06 12:06 | SW/DCPLANNER ---
Patient is currently established with [facility]. I will fax over information and resumptions at discharge. Patient will discharge later today.
[2025-03-06] MEDS: FUROSEMIDE 40 MG TABLET PO (15:04)
--- NOTE | 2025-03-07 10:46 | SW/DCPLANNER ---
Spoke with patient on the phone. Patient stated that she is doing well. Patient stated that she is aware of her upcoming appointments. Patient stated that she was able to get her new medicine picked up from clinic pharmacy. Patient stated that she has no concerns or questions at this time. Ugo Robles
--- OUTSIDE RECORDS SUMMARY | 2025-04-08 20:00 | XMS_ITS | Clinical Summary ---
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 Active 02-06 00:00: 00 ACUTE AND CHRONIC RESPIRATORY FAILURE WITH HYPOXIA Active 02-06 00:00: 00 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 Active 02-04 00:00: 00 PNEUMONIA, UNSPECIFIED ORGANISM Active 02-06 00:00: 00 CHR OBSTRUCTIVE PULMON DISEASE WITH (ACUTE) LOWER RESP INFCT Active 02-06 00:00: 00 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 08-07 00:00: 00 EMPHYSEMA, UNSPECIFIED Active 08-07 00:00: 00 IRON DEFICIENCY ANEMIA SECONDARY TO BLOOD LOSS (CHRONIC) Active 08-07 00:00: 00 UNSPECIFIED MOOD [AFFECTIVE] DISORDER Active 08-07 00:00: 00 PULMONARY HYPERTENSION , UNSPECIFIED Active 08-07 00:00: 00 HYPERLIPIDEM IA, UNSPECIFIED Active 08-07 00:00: 00 DEPENDENCE ON SUPPLEMENTAL OXYGEN Active 08-07 00:00: 00 PRISON (CURRENT) USE OF ANTITHROMBOT ICS/ANTIPLAT ELETS Active 08-07 00:00: 00 TRANSPORTATION OFFICER (CURRENT) USE OF INHALED STEROIDS Active 08-07 00:00: 00 TRANSPORTATION OFFICER (CURRENT) USE OF ORAL HYPOGLYCEMIC DRUGS Active 08-07 00:00: 00 PRISON (CURRENT) USE OF NON-STEROIDA L NON-INFLAM (NSAID) Active 01-07 00:00: 00 PRESENCE OF CORONARY ANGIOPLASTY IMPLANT AND GRAFT Active 08-07 00:00: 00 PERSONAL HISTORY OF NICOTINE DEPENDENCE Active 08-07 00:00: 00 Allergies, Adverse Reactions, Alerts Allergy Name Allergy Type Status Severity Reaction(s) Onset Date Inactive Date Treating Clinician Comments NO KNOWN ALLERGIES Propensity to adverse reactions Active 02-09 13:24: 47 Medications Ordered Medication Name Filled Medication Name Start Date Stop Date Current Medication? Ordering Clinician Indication Dosage Frequency Signature (SIG) Comments Components azithromyci n 500 mg tablet 02-04 00:00: 00 Yes [id number] ANTIBIOTIC 1 tablet DAILY 1 tablet DAILY (route: oral) Med Classific ation: Anti-Infe ctive Agents irbesartan 75 mg tablet 02-04 00:00: 00 Yes [id number] HYPERTENTIO N 1 tablet DAILY 1 tablet DAILY (route: oral) Med Classific ation: Cardiovas cular Therapy Agents Jardiance 10 mg tablet 02-04 00:00: 00 Yes [id number] HEART FAILURE 1 tablet DAILY 1 tablet DAILY (route: oral) Med Classific ation: Endocrine prednisone 20 mg tablet 02-04 00:00: 00 Yes [id number] ANTINFLAMIT ORY 2 tablet DAILY 2 tablet DAILY (route: oral) Med Classific ation: Endocrine spironolact one 25 mg tablet 02-04 00:00: 00 Yes [id number] DIURETIC 1 tablet DAILY 1 tablet DAILY (route: oral) Med Classific ation: Cardiovas cular Therapy Agents carvedilol 25 mg tablet 01-17 00:00: 00 Yes [id number] HEART FAILURE 1 tablet 2 TIMES DAILY 1 tablet 2 TIMES DAILY (route: oral) Med Classific ation: Cardiovas cular Therapy Agents furosemide 40 mg tablet 01-17 00:00: 00 Yes [id number] DIURETIC 1 tablet DAILY 1 tablet DAILY (route: oral) Med Classific ation: Cardiovas cular Therapy Agents furosemide 20 mg tablet 01-10 00:00: 00 02-09 00:00 :00 No [id number] Per instruc tions ONCE DAILY Per instructio ns ONCE DAILY (route: oral) Med Classific ation: Cardiovas cular Therapy Agents isosorbide mononitrate ER 60 mg tablet,exte nded release 24 hr 01-07 00:00: 00 Yes [id number] PREVENT ANGINA 1 tablet DAILY 1 tablet DAILY (route: oral) Med Classific ation: Cardiovas cular Therapy Agents albuterol sulfate HFA 90 mcg/actuati on aerosol inhaler 08-07 00:00: 00 Yes [id number] SOB OR WHEEZING 2 puff 4 TIMES DAILY 2 puff 4 TIMES DAILY (route: inhalation ) Med Classific ation: Respirato ry Therapy Agents atorvastati n 40 mg tablet 08-07 00:00: 00 Yes [id number] HYPERCHOLES TEROL 1 tablet DAILY 1 tablet DAILY (route: oral) Med Classific ation: Cardiovas cular Therapy Agents bupropion HCl 150 mg tablet,12 hr sustained-r elease(smok ing deterrent) 08-07 00:00: 00 Yes [id number] ANTIDEPRESS ANT 1 tablet 2 TIMES DAILY 1 tablet 2 TIMES DAILY (route: oral) Med Classific ation: Chemical Dependenc y, Agents to Treat cyanocobala min (vit B-12) 1,000 mcg tablet 08-07 00:00: 00 Yes [id number] SUPPLIMENT 1 tablet DAILY 1 tablet DAILY (route: oral) Med Classific ation: Electroly te Balance-N utritiona l Products ipratropium 0.5 mg-albutero l 3 mg (2.5 mg base)/3 mL nebulizatio n soln 08-07 00:00: 00 Yes [id number] SOB OR WHEEZING 3 mL 4 TIMES DAILY 3 mL 4 TIMES DAILY (route: inhalation ) Med Classific ation: Respirato ry Therapy Agents meloxicam 15 mg tablet 08-07 00:00: 00 Yes [id number] NSAID 1 tablet DAILY 1 tablet DAILY (route: oral) Med Classific ation: Analgesic , Anti-infl ammatory or Antipyret ic montelukast 10 mg tablet 08-07 00:00: 00 Yes [id number] ASTHMA 1 tablet BEDTIME 1 tablet BEDTIME (route: oral) Med Classific ation: Respirato ry Therapy Agents Plavix 75 mg tablet 08-07 00:00: 00 Yes [id number] ANTICOAGULA NT 1 tablet DAILY 1 tablet DAILY (route: oral) Med Classific ation: Hematolog ical Agents rivastigmin e 4.6 mg/24 hour transdermal patch 08-07 00:00: 00 Yes [id number] COGNITIVE SYMPTOMS 1 patch, transde rmal 24 hours DAILY 1 patch, transderma l 24 hours DAILY (route: transderma l) Med Classific ation: Cognitive Disorder Therapy sertraline 100 mg tablet 08-07 00:00: 00 Yes [id number] DEPRESSION 2 tablet DAILY 2 tablet DAILY (route: oral) Med Classific ation: Central Nervous System Agents Trelegy Ellipta 100 mcg-62.5 mcg-25 mcg powder for inhalation 08-07 00:00: 00 Yes [id number] COPD 1 inhalat ion DAILY 1 inhalation DAILY (route: inhalation ) Med Classific ation: Respirato ry Therapy Agents acetaminoph en 500 mg tablet 08-07 00:00: 00 Yes [id number] PAIN 2 tablet EVERY 8 HOURS 2 tablet EVERY 8 HOURS (route: oral) Med Classific ation: Analgesic , Anti-infl ammatory or Antipyret ic Adult Low Dose Aspirin 81 mg tablet,aaliyah yed release 08-07 00:00: 00 Yes [id number] BLOOD THINNER 1 tablet DAILY 1 tablet DAILY (route: oral) Med Classific ation: Hematolog ical Agents diphenhydra mine 25 mg tablet 08-07 00:00: 00 Yes [id number] ALLERGIES 1 tablet DAILY 1 tablet DAILY (route: oral) Med Classific ation: Respirato ry Therapy Agents ibuprofen 200 mg tablet 08-07 00:00: 00 Yes [id number] PAIN 1 tablet 2 TIMES DAILY 1 tablet 2 TIMES DAILY (route: oral) Med Classific ation: Analgesic , Anti-infl ammatory or Antipyret ic melatonin 12 mg tablet 08-07 00:00: 00 Yes [id number] SLEEP SUPPORT 1 tablet BEDTIME 1 tablet BEDTIME (route: oral) Med Classific ation: Central Nervous System Agents nitroglycer in 0.4 mg sublingual tablet 08-07 00:00: 00 Yes [id number] CHEST PAIN 1 tablet NEEDED 1 tablet NEEDED (route: sublingual ) Med Classific ation: Cardiovas cular Therapy Agents Vital Signs Vital Name Observation Time Observation Value Commen ts Temperature 2025-02-21 13:33:00.000 99.6 [degF] Temperature 2025-02-09 13:27:00.000 98.4 [degF] BMI (%) 2025-02-21 13:33:00.000 21 kg/m2 BMI (%) 2025-02-09 12:52:45.000 21 kg/m2 Height 2025-02-21 13:33:00.000 61 [in_us] Height 2025-02-09 12:52:39.000 61 [in_us] Pulse 2025-02-21 13:33:00.000 74 /min Pulse 2025-02-09 13:27:00.000 76 /min O2 Saturation (%) 2025-02-21 13:34:00.000 99 % O2 Saturation (%) 2025-02-09 13:27:00.000 99 % Respirations 2025-02-21 13:33:00.000 20 /min Respirations 2025-02-09 13:27:00.000 20 /min Weight (lbs) 2025-02-21 13:33:00.000 116 [lb_av] Weight (lbs) 2025-02-09 12:52:45.000 112 [lb_av] Systolic Blood Pressure 2025-02-21 13:33:00.000 147 mm [Hg] Systolic Blood Pressure 2025-02-09 13:30:00.000 178 mm [Hg] Diastolic Blood Pressure 2025-02-21 13:33:00.000 70 mm [Hg] Diastolic Blood Pressure 2025-02-09 13:30:00.000 80 mm [Hg] Plan of Treatment Planned Activity Planned Date Details Comments Future Scheduled Test RN TO OBSE RVE, ASSESS, EVALUATE, AND DEVELOP AN INDIVIDUALIZED PLAN OF CARE. AGENCY MAY ACCEPT ORDERS FROM CONSULTING PHYSICIANS GILES ARMENTA RN TO OBSERVE AND ASSESS, WASTE HAND/CADDY/CADDIE SUPERVISOR TO OBSERVE FOR RISK FOR FALLS AND INSTRUCT IN FALL PREVENTION, HOME SAFETY, MEDICATION MANAGEMENT, INFECTION PREVENTION, AND NUTRITION MANAGEMENT. RN/WASTE HAND/CADDY/CADDIE SUPERVISOR NURSE MAY PERFORM O2 SATURATION LEVEL ON ADMISSION AND PRN, FOR RN TO ASSESS/WASTE HAND TO OBSERVE PATIENT, WITH NOTIFICATION TO THE PHYSICIAN IF SATURATION IS 90% IN THE ABSENCE OF MORE SPECIFIC PARAMETERS FROM THE PHYSICIAN. AGENCY MAY PERFORM A RESUMPTION OF CARE VISIT FOLLOWING ANY HOSPITAL ADMISSION. RN/WASTE HAND/CADDY/CADDIE SUPERVISOR TO MONITOR CO-MORBID CONDITIONS LISTED ON THE PLAN OF CARE AND ANY NEW CONDITIONS THAT PRESENT THEMSELVES DURING THIS EPISODE TO IDENTIFY CHANGES AND INTERVENE TO MINIMIZE COMPLICATIONS. SUN [place] NP [code = RN TO OBSERVE, ASSESS, EVALUATE, AND DEVELOP AN INDIVIDUALIZED PLAN OF CARE. AGENCY MAY ACCEPT ORDERS FROM CONSULTING PHYSICIANS GILES ARMENTA RN TO OBSERVE AND ASSESS, WASTE HAND/CADDY/CADDIE SUPERVISOR TO OBSERVE FOR RISK FOR FALLS AND INSTRUCT IN FALL PREVENTION, HOME SAFETY, MEDICATION MANAGEMENT, INFECTION PREVENTION, AND NUTRITION MANAGEMENT. RN/WASTE HAND/CADDY/CADDIE SUPERVISOR NURSE MAY PERFORM O2 SATURATION LEVEL ON ADMISSION AND PRN, FOR RN TO ASSESS/WASTE HAND TO OBSERVE PATIENT, WITH NOTIFICATION TO THE PHYSICIAN IF SATURATION IS 90% IN THE ABSENCE OF MORE SPECIFIC PARAMETERS FROM THE PHYSICIAN. AGENCY MAY PERFORM A RESUMPTION OF CARE VISIT FOLLOWING ANY HOSPITAL ADMISSION. RN/WASTE HAND/CADDY/CADDIE SUPERVISOR TO MONITOR CO-MORBID CONDITIONS LISTED ON THE PLAN OF CARE AND ANY NEW CONDITIONS THAT PRESENT THEMSELVES DURING THIS EPISODE TO IDENTIFY CHANGES AND INTERVENE TO MINIMIZE COMPLICATIONS. SUN [place] TRIPE SCRAPER] Future Scheduled Test MEDICATION MANAGEMENT; RN/WASTE HAND/CADDY/CADDIE SUPERVISOR TO REVIEW MEDICATIONS FOR INTERACTIONS, EFFECTIVENESS OF DRUG THERAPY, AND SIGNS/SYMPTOMS OF ADVERSE REACTIONS. MAY INSTRUCT AND REINFORCE MEDICATION TEACHING RELATED TO THE USE OF MEDICATIONS, DOSAGE, FREQUENCY, PURPOSE, SIDE EFFECTS, AND TO REPORT COMPLICATIONS. [code = MEDICATION MANAGEMENT; RN/WASTE HAND/CADDY/CADDIE SUPERVISOR TO REVIEW MEDICATIONS FOR INTERACTIONS, EFFECTIVENESS OF DRUG THERAPY, AND SIGNS/SYMPTOMS OF ADVERSE REACTIONS. MAY INSTRUCT AND REINFORCE MEDICATION TEACHING RELATED TO THE USE OF MEDICATIONS, DOSAGE, FREQUENCY, PURPOSE, SIDE EFFECTS, AND TO REPORT COMPLICATIONS.] Future Scheduled Test RISK FOR H OSPITALIZATION; RN TO ASSESS/TEACH, CADDY/CADDIE SUPERVISOR/WASTE HAND TO OBSERVE/TEACH PATIENT/CAREGIVER ON RISK FOR HOSPITALIZATION/EMERGENCY ROOM VISITS, TEACH SIGNS AND SYMPTOMS THAT PUT PATIENT AT RISK, WHEN TO NOTIFY NURSE/PHYSICIAN OF COMPLICATIONS/DECLINE, AND WHEN TO CALL 911. [code = RISK FOR HOSPITALIZATION; RN TO ASSESS/TEACH, CADDY/CADDIE SUPERVISOR/WASTE HAND TO OBSERVE/TEACH PATIENT/CAREGIVER ON RISK FOR HOSPITALIZATION/EMERGENCY ROOM VISITS, TEACH SIGNS AND SYMPTOMS THAT PUT PATIENT AT RISK, WHEN TO NOTIFY NURSE/PHYSICIAN OF COMPLICATIONS/DECLINE, AND WHEN TO CALL 911.] Future Scheduled Test CARDIOVASC ULAR SYSTEM; RN TO ASSESS/TEACH, WASTE HAND/CADDY/CADDIE SUPERVISOR TO OBSERVE/TEACH RELATED TO ALTERED CARDIOVASCULAR STATUS TO MINIMIZE COMPLICATIONS AND REDUCE HOSPITALIZATION. [code = CARDIOVASCULAR SYSTEM; RN TO ASSESS/TEACH, WASTE HAND/CADDY/CADDIE SUPERVISOR TO OBSERVE/TEACH RELATED TO ALTERED CARDIOVASCULAR STATUS TO MINIMIZE COMPLICATIONS AND REDUCE HOSPITALIZATION.] Future Scheduled Test HEART FAIL URE; RN TO ASSESS/TEACH, WASTE HAND/CADDY/CADDIE SUPERVISOR TO OBSERVE/TEACH CARDIOPULMONARY SYSTEM TO IDENTIFY SIGNS OF DECOMPENSATION AND INTERVENE TO MINIMIZE THE SEVERITY OF FLUID OVERLOAD. OBSERVE PATIENT ABILITY TO MONITOR AND RECORD DAILY WEIGHTS AND VITAL SIGNS, INCLUDING PULSE AND BLOOD PRESSURE; RECORD PATIENT REPORTED WEIGHT, OR WEIGH PATIENT NEEDED. REPORT INCREASED EDEMA OR WEIGHT GAIN OF >2 LBS IN 1 DAY OR >5 LBS IN 1 WEEK OR 5LBS OR MORE OVER TARGET WEIGHT. MAY MEASURE ABDOMINAL GIRTH IF UNABLE TO WEIGH. SCALES AND BP MONITOR TO BE PROVIDED IF NEEDED. [code = HEART FAILURE; RN TO ASSESS/TEACH, WASTE HAND/CADDY/CADDIE SUPERVISOR TO OBSERVE/TEACH CARDIOPULMONARY SYSTEM TO IDENTIFY SIGNS OF DECOMPENSATION AND INTERVENE TO MINIMIZE THE SEVERITY OF FLUID OVERLOAD. OBSERVE PATIENT ABILITY TO MONITOR AND RECORD DAILY WEIGHTS AND VITAL SIGNS, INCLUDING PULSE AND BLOOD PRESSURE; RECORD PATIENT REPORTED WEIGHT, OR WEIGH PATIENT NEEDED. REPORT INCREASED EDEMA OR WEIGHT GAIN OF >2 LBS IN 1 DAY OR >5 LBS IN 1 WEEK OR 5LBS OR MORE OVER TARGET WEIGHT. MAY MEASURE ABDOMINAL GIRTH IF UNABLE TO WEIGH. SCALES AND BP MONITOR TO BE PROVIDED IF NEEDED.] Future Scheduled Test HYPERTENSI ON MANAGEMENT; RN TO ASSESS AND TEACH, WASTE HAND/CADDY/CADDIE SUPERVISOR TO OBSERVE AND TEACH WARNING SIGNS AND SYMPTOMS TO AVOID HOSPITALIZATION. [code = HYPERTENSION MANAGEMENT; RN TO ASSESS AND TEACH, WASTE HAND/CADDY/CADDIE SUPERVISOR TO OBSERVE AND TEACH WARNING SIGNS AND SYMPTOMS TO AVOID HOSPITALIZATION.] Future Scheduled Test ANGINA MAN AGEMENT; RN TO ASSESS AND TEACH, WASTE HAND/CADDY/CADDIE SUPERVISOR TO OBSERVE AND TEACH WARNING SIGNS AND SYMPTOMS TO AVOID HOSPITALIZATION. [code = ANGINA MANAGEMENT; RN TO ASSESS AND TEACH, WASTE HAND/CADDY/CADDIE SUPERVISOR TO OBSERVE AND TEACH WARNING SIGNS AND SYMPTOMS TO AVOID HOSPITALIZATION.] Future Scheduled Test PAIN MANAG EMENT; RN TO ASSESS AND TEACH, CADDY/CADDIE SUPERVISOR/WASTE HAND TO OBSERVE AND TEACH AND PROVIDE EDUCATION ON PAIN MANAGEMENT TECHNIQUES. [code = PAIN MANAGEMENT; RN TO ASSESS AND TEACH, CADDY/CADDIE SUPERVISOR/WASTE HAND TO OBSERVE AND TEACH AND PROVIDE EDUCATION ON PAIN MANAGEMENT TECHNIQUES.] Future Scheduled Test RN TO ASSE SS AND TEACH, WASTE HAND/CADDY/CADDIE SUPERVISOR TO OBSERVE AND TEACH FOR SIGNS AND SYMPTOMS OF SEPSIS AND/OR POST-SEPSIS SYNDROME AND INTERVENE TO MINIMIZE COMPLICATIONS. RN/WASTE HAND/CADDY/CADDIE SUPERVISOR TO PROVIDE SKILLED TEACHING TO PATIENT/CAREGIVER ON SEPSIS AND SELF-MANAGEMENT TECHNIQUES. RN/WASTE HAND/CADDY/CADDIE SUPERVISOR TO MONITOR PATIENT/CAREGIVER ADHERENCE TO MONITOR AND RECORD VITAL SIGNS INCLUDING TEMPERATURE, HEART RATE, RESPIRATIONS, AND SYMPTOMS. RN/WASTE HAND/CADDY/CADDIE SUPERVISOR TO PROVIDE SHELTER TO ACCOMPLISH THE PATIENTS PERSONAL GOAL. [code = RN TO ASSESS AND TEACH, WASTE HAND/CADDY/CADDIE SUPERVISOR TO OBSERVE AND TEACH FOR SIGNS AND SYMPTOMS OF SEPSIS AND/OR POST-SEPSIS SYNDROME AND INTERVENE TO MINIMIZE COMPLICATIONS. RN/WASTE HAND/CADDY/CADDIE SUPERVISOR TO PROVIDE SKILLED TEACHING TO PATIENT/CAREGIVER ON SEPSIS AND SELF-MANAGEMENT TECHNIQUES. RN/WASTE HAND/CADDY/CADDIE SUPERVISOR TO MONITOR PATIENT/CAREGIVER ADHERENCE TO MONITOR AND RECORD VITAL SIGNS INCLUDING TEMPERATURE, HEART RATE, RESPIRATIONS, AND SYMPTOMS. RN/WASTE HAND/CADDY/CADDIE SUPERVISOR TO PROVIDE SHELTER TO ACCOMPLISH THE PATIENTS PERSONAL GOAL. ] Future Scheduled Test PHYSICAL T HERAPIST TO EVALUATE FOR STRENGTH AND BALANCE. [code = PHYSICAL THERAPIST TO EVALUATE FOR STRENGTH AND BALANCE.] Future Scheduled Test OCCUPATION AL THERAPIST TO EVALUATE FOR INDEPENDENT AD. L'S. [code = OCCUPATIONAL THERAPIST TO EVALUATE FOR INDEPENDENT AD. L'S.] Future Scheduled Test PRN VISITS ; NUMBER OF RN/WASTE HAND/CADDY/CADDIE SUPERVISOR VISITS: 2 RN/WASTE HAND/CADDY/CADDIE SUPERVISOR TO PERFORM: RESPIRATORY ASSESSMENT FOR THE FOLLOWING REASONS: EXACERBATION OF RESPIRATORY ASSESSMENT [code = PRN VISITS; NUMBER OF RN/WASTE HAND/CADDY/CADDIE SUPERVISOR VISITS: 2 RN/WASTE HAND/CADDY/CADDIE SUPERVISOR TO PERFORM: RESPIRATORY ASSESSMENT FOR THE FOLLOWING REASONS: EXACERBATION OF RESPIRATORY ASSESSMENT ] Goal 2025-02-21 Patient Goal - BREATH BETTER Goal Patient Goal - B REATH BETTER AND GET STRONGER Goal Provider Goal - A PLAN OF CARE WILL BE ESTABLISHED THAT MEETS THE PATIENTS NEEDS. PATIENT WILL DEMONSTRATE OXYGEN SATURATION WITHIN NORMAL LIMITS OR PATIENTS OPTIMAL LEVEL ESTABLISHED BY THE PHYSICIAN THROUGHOUT CARE. CHANGES TO CO-MORBID CONDITIONS AND ANY NEW CONDITIONS WILL BE IDENTIFIED AND REPORTED TO THE PHYSICIAN. Goal Provider Goal - PATIENT/CAREGIVER TO VERBALIZE, AND CONSISTENTLY DEMONSTRATE EFFECTIVE, SAFE MANAGEMENT OF MEDICATION INCLUDING KNOWLEDGE OF EFFECTIVENESS, POTENTIAL SIDE EFFECTS AND DRUG REACTIONS AND WHEN TO CONTACT THE APPROPRIATE CARE PROVIDER. PATIENT/CAREGIVER WILL BE ABLE TO VERBALIZE UNDERSTANDING OF MEDICATION REGIMEN AND ACCURATELY TAKE MEDICATIONS PRESCRIBED WITHOUT ADVERSE EFFECTS BY 4 WEEKS. Goal Provider Goal - PATIENT/CAREGIVER WILL VERBALIZE UNDERSTANDING OF SIGNS AND SYMPTOMS THAT PUT THE PATIENT AT RISK FOR HOSPITALIZATION /EMERGENCY ROOM VISITS, WHEN TO NOTIFY NURSE/PHYSICIAN OF COMPLICATIONS/DECLINE AND WHEN TO CALL 911. Goal Provider Goal - PATIENT / CAREGIVER WILL VERBALIZE/DEMONSTRATE UNDERSTANDING OF MEASURES TO MANAGE ALTERED CARDIOVASCULAR STATUS BY 3 WEEKS. Goal Provider Goal - PATIENT / CAREGIVER WILL VERBALIZE/DEMONSTRATE AN ABILITY TO ADHERE TO SELF-MANAGEMENT OF HF TO MINIMIZE COMPLICATIONS AND AVOID HOSPITALIZATION BY END OF EPISODE. Goal Provider Goal - PATIENT / CAREGIVER WILL VERBALIZE/DEMONSTRATE AN ABILITY TO ADHERE TO SELF-MANAGEMENT OF HTN TO MINIMIZE COMPLICATIONS AND AVOID HOSPITALIZATION BY END OF EPISODE. Goal Provider Goal - PATIENT / CAREGIVER WILL VERBALIZE/DEMONSTRATE AN ABILITY TO ADHERE TO SELF-MANAGEMENT OF ANGINA TO MINIMIZE COMPLICATIONS AND AVOID HOSPITALIZATION BY END OF EPISODE. Goal Provider Goal - PATIENT / CAREGIVER WILL VERBALIZE / DEMONSTRATE UNDERSTANDING OF PAIN CONTROL MEASURES BY 2 WEEKS. Goal Provider Goal - SIGNS OF SEPSIS WILL BE IDENTIFIED PROMPTLY, AND INTERVENTIONS INITIATED TO MINIMIZE SEVERITY AND RISK OF HOSPITALIZATION. POST-SEPSIS SYNDROME INTERVENTIONS WILL BE REVIEWED WITH THE PATIENT/CAREGIVER, IF APPLICABLE. PATIENT / CAREGIVER WILL VERBALIZE/DEMONSTRATE AN ABILITY TO ADHERE TO SELF-MANAGEMENT AT DISCHARGE BY 3 WEEKS. Goal Provider Goal - Goal Provider Goal - Goal Provider Goal - Encounters Start Date/Time End Date/Time Encounter Type Admission Type Attending Clinicians Care Facility Care Department Encounter ID Discharge Date Discharge Status Discharge Condition Discharge Reason Percent Goals Met 2025-02-09 00:00:00 2025-04-09 00:00:00 Outpatient NEW ADMISSION EMILY GONZALES [facility] [id number]
--- OUTSIDE RECORDS SUMMARY | 2025-04-08 20:00 | XMS_ITS | Clinical Summary ---
Author Organization Unknown Care Team Providers [facility] Name Role Phone NORMAN SANTOYO, LATISHA Unavailable Unavailable CHRISTIAN CAMPA, EMILY Unavailable Unavailable SUHAIL FRAGOSON, SERGIO Unavailable Unavailable Payers Payer Name Policy Type Policy Number Effective Date Expira tion Date MEDICARE.[facility] [id number] Problems Condition Name Condition Details Condition Category [...] 02-06 00:00: 00 ATHSCL HEART DISEASE OF [place] CORONARY ARTERY W/O ANG PCTRS Active 08-07 00:00: 00 EMPHYSEMA, UNSPECIFIED Active 08-07 00:00: 00 IRON DEFICIENCY ANEMIA SECONDARY TO BLOOD LOSS (CHRONIC) Active 08-07 00:00: 00 UNSPECIFIED MOOD [AFFECTIVE] DISORDER Active 08-07 00:00: 00 PULMONARY HYPERTENSION , UNSPECIFIED Active 08-07 00:00: 00 HYPERLIPIDEM IA, UNSPECIFIED Active 08-07 00:00: 00 DEPENDENCE ON SUPPLEMENTAL OXYGEN Active 08-07 00:00: 00 CORRECTION (CURRENT) USE OF ANTITHROMBOT ICS/ANTIPLAT ELETS Active 08-07 00:00: 00 MANAGER MALL (CURRENT) USE OF INHALED STEROIDS Active 08-07 00:00: 00 MANAGER MALL (CURRENT) USE OF ORAL HYPOGLYCEMIC DRUGS Active 08-07 00:00: 00 CORRECTION (CURRENT) USE OF NON-STEROIDA L NON-INFLAM (NSAID) [...] 500 mg tablet 02-04 00:00: 00 Yes [id number] ANTIBIOTIC 1 tablet DAILY 1 tablet DAILY (route: oral) Med Classific ation: Anti-Infe ctive Agents irbesartan 75 mg tablet 02-04 00:00: 00 Yes [id number] HYPERTENTIO N 1 tablet DAILY 1 tablet DAILY (route: oral) Med Classific ation: Cardiovas cular Therapy Agents Jardiance 10 mg tablet 02-04 00:00: 00 Yes [id number] HEART FAILURE 1 tablet DAILY 1 tablet DAILY (route: oral) Med Classific ation: Endocrine prednisone 20 mg tablet 02-04 00:00: 00 Yes [id number] ANTINFLAMIT ORY 2 tablet DAILY 2 tablet DAILY (route: oral) Med Classific ation: Endocrine spironolact one 25 mg tablet 02-04 00:00: 00 Yes [id number] DIURETIC 1 tablet DAILY 1 tablet DAILY (route: oral) Med Classific ation: Cardiovas cular Therapy Agents carvedilol 25 mg tablet 01-17 00:00: 00 Yes [id number] HEART FAILURE 1 tablet 2 TIMES DAILY 1 tablet 2 TIMES DAILY (route: oral) Med Classific ation: Cardiovas cular Therapy Agents furosemide 40 mg tablet 01-17 00:00: 00 Yes [id number] DIURETIC 1 tablet DAILY 1 tablet DAILY (route: oral) Med Classific ation: Cardiovas cular Therapy Agents furosemide 20 mg tablet 01-10 00:00: 00 02-09 00:00 :00 No [id number] Per instruc tions ONCE DAILY Per instructio ns ONCE DAILY (route: oral) Med Classific ation: Cardiovas cular Therapy Agents isosorbide mononitrate ER 60 mg tablet,exte nded release 24 hr 01-07 00:00: 00 Yes [id number] PREVENT ANGINA 1 tablet DAILY 1 tablet DAILY (route: oral) Med Classific ation: Cardiovas cular Therapy Agents albuterol sulfate HFA 90 mcg/actuati on aerosol inhaler 08-07 00:00: 00 Yes [id number] SOB OR WHEEZING 2 puff 4 TIMES DAILY 2 puff 4 TIMES DAILY (route: inhalation ) Med Classific ation: Respirato ry Therapy Agents atorvastati n 40 mg tablet 08-07 00:00: 00 Yes [id number] HYPERCHOLES TEROL 1 tablet DAILY 1 tablet DAILY (route: oral) Med Classific ation: Cardiovas cular Therapy Agents bupropion HCl 150 mg tablet,12 hr sustained-r elease(smok ing deterrent) 08-07 00:00: 00 Yes [id number] ANTIDEPRESS ANT 1 tablet 2 TIMES DAILY 1 tablet 2 TIMES DAILY (route: oral) Med Classific ation: Chemical Dependenc y, Agents to Treat cyanocobala min (vit B-12) 1,000 mcg tablet 08-07 00:00: 00 Yes [id number] SUPPLIMENT 1 tablet DAILY 1 tablet DAILY (route: oral) Med Classific ation: Electroly te Balance-N utritiona l Products ipratropium 0.5 mg-albutero l 3 mg (2.5 mg base)/3 mL nebulizatio n soln 08-07 00:00: 00 Yes [id number] SOB OR WHEEZING 3 mL 4 TIMES DAILY 3 mL 4 TIMES DAILY (route: inhalation ) Med Classific ation: Respirato ry Therapy Agents meloxicam 15 mg tablet 08-07 00:00: 00 Yes [id number] NSAID 1 tablet DAILY 1 tablet DAILY (route: oral) Med Classific ation: Analgesic , Anti-infl ammatory or Antipyret ic montelukast 10 mg tablet 08-07 00:00: 00 Yes [id number] ASTHMA 1 tablet BEDTIME 1 tablet BEDTIME (route: oral) Med Classific ation: Respirato ry Therapy Agents Plavix 75 mg tablet 08-07 00:00: 00 Yes [id number] ANTICOAGULA NT 1 tablet DAILY 1 tablet DAILY (route: oral) Med Classific ation: Hematolog ical Agents rivastigmin e 4.6 mg/24 hour transdermal patch 08-07 00:00: 00 Yes [id number] COGNITIVE SYMPTOMS 1 patch, transde rmal 24 hours DAILY 1 patch, transderma l 24 hours DAILY (route: transderma l) Med Classific ation: Cognitive Disorder Therapy sertraline 100 mg tablet 08-07 00:00: 00 Yes [id number] DEPRESSION 2 tablet DAILY 2 tablet DAILY (route: oral) Med Classific ation: Central Nervous System Agents Trelegy Ellipta 100 mcg-62.5 mcg-25 mcg powder for inhalation 08-07 00:00: 00 Yes [id number] COPD 1 inhalat ion DAILY 1 inhalation DAILY (route: inhalation ) Med Classific ation: Respirato ry Therapy Agents acetaminoph en 500 mg tablet 08-07 00:00: 00 Yes [id number] PAIN 2 tablet EVERY 8 HOURS 2 tablet EVERY 8 HOURS (route: oral) Med Classific ation: Analgesic , Anti-infl ammatory or Antipyret ic Adult Low Dose Aspirin 81 mg tablet,aaliyah yed release 08-07 00:00: 00 Yes [id number] BLOOD THINNER 1 tablet DAILY 1 tablet DAILY (route: oral) Med Classific ation: Hematolog ical Agents diphenhydra mine 25 mg tablet 08-07 00:00: 00 Yes [id number] ALLERGIES 1 tablet DAILY 1 tablet DAILY (route: oral) Med Classific ation: Respirato ry Therapy Agents ibuprofen 200 mg tablet 08-07 00:00: 00 Yes [id number] PAIN 1 tablet 2 TIMES DAILY 1 tablet 2 TIMES DAILY (route: oral) Med Classific ation: Analgesic , Anti-infl ammatory or Antipyret ic melatonin 12 mg tablet 08-07 00:00: 00 Yes [id number] SLEEP SUPPORT 1 tablet BEDTIME 1 tablet BEDTIME (route: oral) Med Classific ation: Central Nervous System Agents nitroglycer in 0.4 mg sublingual tablet 08-07 00:00: 00 Yes [id number] CHEST PAIN 1 tablet NEEDED 1 tablet [...] GILES ARMENTA RN TO OBSERVE AND ASSESS, SENIOR JAVA ARCHITECT/DISTRIBUTION DESIGNER TO OBSERVE FOR RISK FOR FALLS AND INSTRUCT IN FALL PREVENTION, HOME SAFETY, MEDICATION MANAGEMENT, INFECTION PREVENTION, AND NUTRITION MANAGEMENT. RN/SENIOR JAVA ARCHITECT/DISTRIBUTION DESIGNER NURSE MAY PERFORM O2 SATURATION LEVEL ON ADMISSION AND PRN, FOR RN TO ASSESS/SENIOR JAVA ARCHITECT TO OBSERVE PATIENT, WITH NOTIFICATION TO THE PHYSICIAN IF SATURATION IS 90% IN THE ABSENCE OF MORE SPECIFIC PARAMETERS FROM THE PHYSICIAN. AGENCY MAY PERFORM A RESUMPTION OF CARE VISIT FOLLOWING ANY HOSPITAL ADMISSION. RN/SENIOR JAVA ARCHITECT/DISTRIBUTION DESIGNER TO MONITOR CO-MORBID CONDITIONS LISTED ON THE PLAN OF CARE AND ANY NEW CONDITIONS THAT PRESENT THEMSELVES DURING THIS EPISODE TO IDENTIFY CHANGES AND INTERVENE TO MINIMIZE COMPLICATIONS. SUN [place] NP [code = RN TO OBSERVE, ASSESS, EVALUATE, AND DEVELOP AN INDIVIDUALIZED PLAN OF CARE. AGENCY MAY ACCEPT ORDERS FROM CONSULTING PHYSICIANS GILES ARMENTA RN TO OBSERVE AND ASSESS, SENIOR JAVA ARCHITECT/DISTRIBUTION DESIGNER TO OBSERVE FOR RISK FOR FALLS AND INSTRUCT IN FALL PREVENTION, HOME SAFETY, MEDICATION MANAGEMENT, INFECTION PREVENTION, AND NUTRITION MANAGEMENT. RN/SENIOR JAVA ARCHITECT/DISTRIBUTION DESIGNER NURSE MAY PERFORM O2 SATURATION LEVEL ON ADMISSION AND PRN, FOR RN TO ASSESS/SENIOR JAVA ARCHITECT TO OBSERVE PATIENT, WITH NOTIFICATION TO THE PHYSICIAN IF SATURATION IS 90% IN THE ABSENCE OF MORE SPECIFIC PARAMETERS FROM THE PHYSICIAN. AGENCY MAY PERFORM A RESUMPTION OF CARE VISIT FOLLOWING ANY HOSPITAL ADMISSION. RN/SENIOR JAVA ARCHITECT/DISTRIBUTION DESIGNER TO MONITOR CO-MORBID CONDITIONS LISTED ON THE PLAN OF CARE AND ANY NEW CONDITIONS THAT PRESENT THEMSELVES DURING THIS EPISODE TO IDENTIFY CHANGES AND INTERVENE TO MINIMIZE COMPLICATIONS. SUN [place] [employer] REPRESENTATIVE] Future Scheduled Test MEDICATION MANAGEMENT; RN/SENIOR JAVA ARCHITECT/DISTRIBUTION DESIGNER TO REVIEW MEDICATIONS FOR INTERACTIONS, EFFECTIVENESS OF DRUG THERAPY, AND SIGNS/SYMPTOMS OF ADVERSE REACTIONS. MAY INSTRUCT AND REINFORCE MEDICATION TEACHING RELATED TO THE USE OF MEDICATIONS, DOSAGE, FREQUENCY, PURPOSE, SIDE EFFECTS, AND TO REPORT COMPLICATIONS. [code = MEDICATION MANAGEMENT; RN/SENIOR JAVA ARCHITECT/DISTRIBUTION DESIGNER TO REVIEW MEDICATIONS FOR INTERACTIONS, EFFECTIVENESS OF DRUG THERAPY, AND SIGNS/SYMPTOMS OF ADVERSE REACTIONS. MAY INSTRUCT AND REINFORCE MEDICATION TEACHING RELATED TO THE USE OF MEDICATIONS, DOSAGE, FREQUENCY, PURPOSE, SIDE EFFECTS, AND TO REPORT COMPLICATIONS.] Future Scheduled Test RISK FOR H OSPITALIZATION; RN TO ASSESS/TEACH, DISTRIBUTION DESIGNER/SENIOR JAVA ARCHITECT TO OBSERVE/TEACH PATIENT/CAREGIVER ON RISK FOR HOSPITALIZATION/EMERGENCY ROOM VISITS, TEACH SIGNS AND SYMPTOMS THAT PUT PATIENT AT RISK, WHEN TO NOTIFY NURSE/PHYSICIAN OF COMPLICATIONS/DECLINE, AND WHEN TO CALL 911. [code = RISK FOR HOSPITALIZATION; RN TO ASSESS/TEACH, DISTRIBUTION DESIGNER/SENIOR JAVA ARCHITECT TO OBSERVE/TEACH PATIENT/CAREGIVER ON RISK FOR HOSPITALIZATION/EMERGENCY ROOM VISITS, TEACH SIGNS AND SYMPTOMS THAT PUT PATIENT AT RISK, WHEN TO NOTIFY NURSE/PHYSICIAN OF COMPLICATIONS/DECLINE, AND WHEN TO CALL 911.] Future Scheduled Test CARDIOVASC ULAR SYSTEM; RN TO ASSESS/TEACH, SENIOR JAVA ARCHITECT/DISTRIBUTION DESIGNER TO OBSERVE/TEACH RELATED TO ALTERED CARDIOVASCULAR STATUS TO MINIMIZE COMPLICATIONS AND REDUCE HOSPITALIZATION. [code = CARDIOVASCULAR SYSTEM; RN TO ASSESS/TEACH, SENIOR JAVA ARCHITECT/DISTRIBUTION DESIGNER TO OBSERVE/TEACH RELATED TO ALTERED CARDIOVASCULAR STATUS TO MINIMIZE COMPLICATIONS AND REDUCE HOSPITALIZATION.] Future Scheduled Test HEART FAIL URE; RN TO ASSESS/TEACH, SENIOR JAVA ARCHITECT/DISTRIBUTION DESIGNER TO OBSERVE/TEACH CARDIOPULMONARY SYSTEM TO IDENTIFY SIGNS [...] [code = HEART FAILURE; RN TO ASSESS/TEACH, SENIOR JAVA ARCHITECT/DISTRIBUTION DESIGNER TO OBSERVE/TEACH CARDIOPULMONARY SYSTEM TO IDENTIFY SIGNS [...] ON MANAGEMENT; RN TO ASSESS AND TEACH, SENIOR JAVA ARCHITECT/DISTRIBUTION DESIGNER TO OBSERVE AND TEACH WARNING SIGNS AND SYMPTOMS TO AVOID HOSPITALIZATION. [code = HYPERTENSION MANAGEMENT; RN TO ASSESS AND TEACH, SENIOR JAVA ARCHITECT/DISTRIBUTION DESIGNER TO OBSERVE AND TEACH WARNING SIGNS AND SYMPTOMS TO AVOID HOSPITALIZATION.] Future Scheduled Test ANGINA MAN AGEMENT; RN TO ASSESS AND TEACH, SENIOR JAVA ARCHITECT/DISTRIBUTION DESIGNER TO OBSERVE AND TEACH WARNING SIGNS AND SYMPTOMS TO AVOID HOSPITALIZATION. [code = ANGINA MANAGEMENT; RN TO ASSESS AND TEACH, SENIOR JAVA ARCHITECT/DISTRIBUTION DESIGNER TO OBSERVE AND TEACH WARNING SIGNS AND SYMPTOMS TO AVOID HOSPITALIZATION.] Future Scheduled Test PAIN MANAG EMENT; RN TO ASSESS AND TEACH, DISTRIBUTION DESIGNER/SENIOR JAVA ARCHITECT TO OBSERVE AND TEACH AND PROVIDE EDUCATION ON PAIN MANAGEMENT TECHNIQUES. [code = PAIN MANAGEMENT; RN TO ASSESS AND TEACH, DISTRIBUTION DESIGNER/SENIOR JAVA ARCHITECT TO OBSERVE AND TEACH AND PROVIDE EDUCATION ON PAIN MANAGEMENT TECHNIQUES.] Future Scheduled Test RN TO ASSE SS AND TEACH, SENIOR JAVA ARCHITECT/DISTRIBUTION DESIGNER TO OBSERVE AND TEACH FOR SIGNS AND SYMPTOMS OF SEPSIS AND/OR POST-SEPSIS SYNDROME AND INTERVENE TO MINIMIZE COMPLICATIONS. RN/SENIOR JAVA ARCHITECT/DISTRIBUTION DESIGNER TO PROVIDE SKILLED TEACHING TO PATIENT/CAREGIVER ON SEPSIS AND SELF-MANAGEMENT TECHNIQUES. RN/SENIOR JAVA ARCHITECT/DISTRIBUTION DESIGNER TO MONITOR PATIENT/CAREGIVER ADHERENCE TO MONITOR AND RECORD VITAL SIGNS INCLUDING TEMPERATURE, HEART RATE, RESPIRATIONS, AND SYMPTOMS. RN/SENIOR JAVA ARCHITECT/DISTRIBUTION DESIGNER TO PROVIDE SNF TO ACCOMPLISH THE PATIENTS PERSONAL GOAL. [code = RN TO ASSESS AND TEACH, SENIOR JAVA ARCHITECT/DISTRIBUTION DESIGNER TO OBSERVE AND TEACH FOR SIGNS AND SYMPTOMS OF SEPSIS AND/OR POST-SEPSIS SYNDROME AND INTERVENE TO MINIMIZE COMPLICATIONS. RN/SENIOR JAVA ARCHITECT/DISTRIBUTION DESIGNER TO PROVIDE SKILLED TEACHING TO PATIENT/CAREGIVER ON SEPSIS AND SELF-MANAGEMENT TECHNIQUES. RN/SENIOR JAVA ARCHITECT/DISTRIBUTION DESIGNER TO MONITOR PATIENT/CAREGIVER ADHERENCE TO MONITOR AND RECORD VITAL SIGNS INCLUDING TEMPERATURE, HEART RATE, RESPIRATIONS, AND SYMPTOMS. RN/SENIOR JAVA ARCHITECT/DISTRIBUTION DESIGNER TO PROVIDE SNF TO ACCOMPLISH THE PATIENTS PERSONAL GOAL. ] Future Scheduled Test PHYSICAL T HERAPIST TO EVALUATE FOR STRENGTH AND BALANCE. [code = PHYSICAL THERAPIST TO EVALUATE FOR STRENGTH AND BALANCE.] Future Scheduled Test OCCUPATION AL THERAPIST TO EVALUATE FOR INDEPENDENT AD. L'S. [code = OCCUPATIONAL THERAPIST TO EVALUATE FOR INDEPENDENT AD. L'S.] Future Scheduled Test PRN VISITS ; NUMBER OF RN/SENIOR JAVA ARCHITECT/DISTRIBUTION DESIGNER VISITS: 2 RN/SENIOR JAVA ARCHITECT/DISTRIBUTION DESIGNER TO PERFORM: RESPIRATORY ASSESSMENT FOR THE FOLLOWING REASONS: EXACERBATION OF RESPIRATORY ASSESSMENT [code = PRN VISITS; NUMBER OF RN/SENIOR JAVA ARCHITECT/DISTRIBUTION DESIGNER VISITS: 2 RN/SENIOR JAVA ARCHITECT/DISTRIBUTION DESIGNER TO PERFORM: RESPIRATORY ASSESSMENT FOR THE FOLLOWING [...] 2025-04-09 00:00:00 Outpatient NEW ADMISSION EMILY GONZALES [facility] [id number] [phone]
== END 2025-03-06 15:28 | disposition home health service (06) | DRG 291 ==
LOC: ER 23:34 → 2ND 03-03 01:00 → ICU 03-03 15:08 → 2ND 03-04 14:46
PROVIDERS: Internal Medicine; Admitting Provider Student in an Organized Health Care Education/Training Program; Emergency Provider Emergency Medicine; Visit Provider Student in an Organized Health Care Education/Training Program
DX: I11.0 Hypertensive heart disease with heart failure (principal); I50.33 Acute on chronic diastolic (congestive) heart failure; J96.21 Acute and chronic respiratory failure with hypoxia; J96.22 Acute and chronic respiratory failure with hypercapnia; I16.1 Hypertensive emergency; N17.9 Acute kidney failure, unspecified; F41.9 Anxiety disorder, unspecified; D50.9 Iron deficiency anemia, unspecified; J44.9 Chronic obstructive pulmonary disease, unspecified; F39 Unspecified mood [affective] disorder; E78.5 Hyperlipidemia, unspecified; I25.10 Atherosclerotic heart disease of native coronary artery without angina pectoris; I95.2 Hypotension due to drugs; T50.2X5A Adverse effect of carbonic-anhydrase inhibitors, benzothiadiazides and other diuretics, initial encounter; I95.9 Hypotension, unspecified; T46.5X5A Adverse effect of other antihypertensive drugs, initial encounter; Z79.899 Other long term (current) drug therapy; Z79.02 Long term (current) use of antithrombotics/antiplatelets; Z87.891 Personal history of nicotine dependence
CPT/HCPCS: 36415; 71045; 80048; 80053; 82803; 82962; 83735; 83880; 84484; 85007; 85025; 87633; 92610; 93005; 94640; 94760; 97110; 97163; 97166; 97530; G0378; J1650; J1756; J1938; J2405; J2919; J3475

== ENCOUNTER 2025-03-31 13:51 | Outpatient (CLI) | payer MEDICARE, SELFPAY ==
[2025-03-31] MEDS: ALBUTEROL 0.083% 2.5 MG/3 ML NEB IH (14:09)
--- NOTE | 2025-03-31 14:09 | PC.NURSE ---
Pre and Post Spirometry completed without incident. Albuterol 0.083% given via HHN, per written protocol, Pt tolerated tx well.
--- OUTSIDE RECORDS SUMMARY | 2025-04-08 20:00 | XMS_ITS | Clinical Summary ---
Author Organization Unknown Care Team Providers Care Advertising Account Executive Name Role Phone NORMAN SANTOYO, LATISHA Unavailable Unavailable CHRISTIAN CAMPA, EMILY Unavailable Unavailable SUHAIL FRAGOSON, SERGIO Unavailable Unavailable Payers Payer Name Policy Type Policy Number Effective Date Expira tion Date MEDICARE.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 08-07 00:00: 00 EMPHYSEMA, UNSPECIFIED Active 03-04 00:00: 00 UNSPECIFIED SEVERE PROTEIN-MARICRUZ SEGUNDO MALNUTRITION Active 03-04 00:00: 00 PULMONARY HYPERTENSION , UNSPECIFIED Active 08-07 00:00: 00 IRON DEFICIENCY ANEMIA SECONDARY TO BLOOD LOSS (CHRONIC) Active 08-07 00:00: 00 ANXIETY DISORDER, UNSPECIFIED Active 03-04 00:00: 00 UNSPECIFIED MOOD [AFFECTIVE] DISORDER Active 08-07 00:00: 00 IRON DEFICIENCY ANEMIA, UNSPECIFIED Active 08-07 00:00: 00 HYPERLIPIDEM IA, UNSPECIFIED Active 08-07 00:00: 00 DEPENDENCE ON SUPPLEMENTAL OXYGEN Active 08-07 00:00: 00 ALF (CURRENT) USE OF ANTITHROMBOT ICS/ANTIPLAT ELETS Active 08-07 00:00: 00 ALF (CURRENT) USE OF INHALED STEROIDS Active 08-07 00:00: 00 SUPPORT WORKER (CURRENT) USE OF ORAL HYPOGLYCEMIC DRUGS Active 08-07 00:00: 00 HISTORY OF FALLING Active 03-08 00:00: 00 PRESENCE OF CORONARY ANGIOPLASTY IMPLANT [...] n 500 mg tablet 02-04 00:00: 00 03-08 00:00 :00 No [id number] ANTIBIOTIC 1 tablet DAILY 1 tablet DAILY (route: oral) Med Classific ation: Anti-Infe ctive Agents irbesartan 75 mg tablet 02-04 00:00: 00 Yes [id number] HYPERTENTIO N 1 tablet DAILY 1 tablet DAILY (route: oral) Med Classific ation: Cardiovas cular Therapy Agents Jardiance 10 mg tablet 02-04 00:00: 00 Yes [id number] HEART FAILURE 1 tablet DAILY 1 tablet DAILY (route: oral) Med Classific ation: Endocrine prednisone 20 mg tablet 02-04 00:00: 00 03-08 00:00 :00 No [id number] ANTINFLAMIT ORY 2 tablet DAILY 2 tablet DAILY (route: oral) Med Classific ation: Endocrine spironolact one 25 mg tablet 02-04 00:00: 00 Yes [id number] DIURETIC 1 tablet DAILY 1 tablet DAILY (route: oral) Med Classific ation: Cardiovas cular Therapy Agents carvedilol 25 mg tablet - 00:00: 00 03-08 00:00 :00 No [id number] HEART FAILURE 1 tablet 2 TIMES DAILY 1 tablet 2 TIMES DAILY (route: oral) Med Classific ation: Cardiovas cular Therapy Agents furosemide 40 mg tablet -13 00:00: 00 03-08 00:00 :00 No [id number] DIURETIC 1 tablet DAILY 1 tablet DAILY (route: oral) Med Classific ation: Cardiovas cular Therapy Agents furosemide 20 mg tablet 01-10 00:00: 00 02-09 00:00 :00 No [id number] Per instruc tions ONCE DAILY Per instructio ns ONCE DAILY (route: oral) Med Classific ation: Cardiovas cular Therapy Agents isosorbide mononitrate ER 60 mg tablet,exte nded release 24 hr 01-07 00:00: 00 03-07 23:59 :00 No [id number] PREVENT ANGINA 1 tablet DAILY 1 tablet DAILY (route: oral) Med Classific ation: Cardiovas cular Therapy Agents albuterol sulfate HFA 90 mcg/actuati on aerosol inhaler 08-07 00:00: 00 Yes [id number] SOB OR WHEEZING 2 puff 4 TIMES DAILY 2 puff 4 TIMES DAILY (route: inhalation ) Med Classific ation: Respirato ry Therapy Agents atorvastati n 40 mg tablet 08-07 00:00: 00 Yes [id number] HYPERCHOLES TEROL 1 tablet DAILY 1 tablet DAILY (route: oral) Med Classific ation: Cardiovas cular Therapy Agents bupropion HCl 150 mg tablet,12 hr sustained-r elease(smok ing deterrent) 08-07 00:00: 00 03-07 23:59 :00 No [id number] ANTIDEPRESS ANT 1 tablet 2 TIMES DAILY 1 tablet 2 TIMES DAILY (route: oral) Med Classific ation: Chemical Dependenc y, Agents to Treat cyanocobala min (vit B-12) 1,000 mcg tablet 08-07 00:00: 00 Yes [id number] SUPPLIMENT 1 tablet DAILY 1 tablet DAILY (route: oral) Med Classific ation: Electroly te Balance-N utritiona l Products ipratropium 0.5 mg-albutero l 3 mg (2.5 mg base)/3 mL nebulizatio n soln 08-07 00:00: 00 Yes [id number] SOB OR WHEEZING 3 mL 4 TIMES DAILY 3 mL 4 TIMES DAILY (route: inhalation ) Med Classific ation: Respirato ry Therapy Agents meloxicam 15 mg tablet 08-07 00:00: 00 Yes [id number] NSAID 1 tablet DAILY 1 tablet DAILY (route: oral) Med Classific ation: Analgesic , Anti-infl ammatory or Antipyret ic montelukast 10 mg tablet 08-07 00:00: 00 Yes [id number] ASTHMA 1 tablet BEDTIME 1 tablet BEDTIME (route: oral) Med Classific ation: Respirato ry Therapy Agents Plavix 75 mg tablet 08-07 00:00: 00 Yes [id number] ANTICOAGULA NT 1 tablet DAILY 1 tablet DAILY (route: oral) Med Classific ation: Hematolog ical Agents rivastigmin e 4.6 mg/24 hour transdermal patch 08-07 00:00: 00 Yes [id number] COGNITIVE SYMPTOMS 1 patch, transde rmal 24 hours DAILY 1 patch, transderma l 24 hours DAILY (route: transderma l) Med Classific ation: Cognitive Disorder Therapy sertraline 100 mg tablet 08-07 00:00: 00 03-07 23:59 :00 No [id number] DEPRESSION 2 tablet DAILY 2 tablet DAILY (route: oral) Med Classific ation: Central Nervous System Agents Trelegy Ellipta 100 mcg-62.5 mcg-25 mcg powder for inhalation 08-07 00:00: 00 Yes [id number] COPD 1 inhalat ion DAILY 1 inhalation DAILY (route: inhalation ) Med Classific ation: Respirato ry Therapy Agents acetaminoph en 500 mg tablet 08-07 00:00: 00 Yes [id number] PAIN 2 tablet EVERY 8 HOURS 2 tablet EVERY 8 HOURS (route: oral) Med Classific ation: Analgesic , Anti-infl ammatory or Antipyret ic Adult Low Dose Aspirin 81 mg tablet,aaliyah yed release 08-07 00:00: 00 03-08 00:00 :00 No [id number] BLOOD THINNER 1 tablet DAILY 1 tablet DAILY (route: oral) Med Classific ation: Hematolog ical Agents diphenhydra mine 25 mg tablet 08-07 00:00: 00 03-08 00:00 :00 No [id number] ALLERGIES 1 tablet DAILY 1 tablet DAILY (route: oral) Med Classific ation: Respirato ry Therapy Agents ibuprofen 200 mg tablet 08-07 00:00: 00 Yes [id number] PAIN 1 tablet 2 TIMES DAILY 1 tablet 2 TIMES DAILY (route: oral) Med Classific ation: Analgesic , Anti-infl ammatory or Antipyret ic melatonin 12 mg tablet 08-07 00:00: 00 03-08 00:00 :00 No [id number] SLEEP SUPPORT 1 tablet BEDTIME 1 tablet BEDTIME (route: oral) Med Classific ation: Central Nervous System Agents nitroglycer in 0.4 mg sublingual tablet 08-07 00:00: 00 Yes [id number] CHEST PAIN 1 tablet NEEDED 1 tablet NEEDED (route: sublingual ) Med Classific ation: Cardiovas cular Therapy Agents buspirone 5 mg tablet 03-07 00:00: 00 Yes [id number] ANTIDEPRESS ION 1 tablet 3 TIMES DAILY 1 tablet 3 TIMES DAILY (route: oral) Med Classific ation: Central Nervous System Agents escitalopra m 20 mg tablet 03-07 00:00: 00 Yes [id number] ANTIDEPRESS ANT 1 tablet DAILY 1 tablet DAILY (route: oral) Med Classific ation: Central Nervous System Agents furosemide 40 mg tablet 03-07 00:00: 00 Yes [id number] DIURETIC 1 tablet 2 TIMES DAILY 1 tablet 2 TIMES DAILY (route: oral) Med Classific ation: Cardiovas cular Therapy Agents hydrocodone 10 mg-acetamin ophen 325 mg tablet 03-07 00:00: 00 Yes [id number] PAIN 1 tablet EVERY 8 HOURS 1 tablet EVERY 8 HOURS (route: oral) Med Classific ation: Analgesic , Anti-infl ammatory or Antipyret ic hydroxyzine pamoate 25 mg capsule 03-07 00:00: 00 Yes [id number] ANXIETY 1 capsule 3 TIMES DAILY 1 capsule 3 TIMES DAILY (route: oral) Med Classific ation: Central Nervous System Agents polyethylen e glycol 3350 17 gram/dose oral powder 03-07 00:00: 00 Yes [id number] CONSTIPATIO N 17 gram DAILY 17 gram DAILY (route: oral) Med Classific ation: Gastroint estinal Therapy Agents potassium chloride ER 20 mEq tablet,exte nded release 03-07 00:00: 00 Yes [id number] SUPPLIMENT 1 tablet DAILY 1 tablet DAILY (route: oral) Med Classific ation: Electroly te Balance-N utritiona l Products Vital Signs Vital Name Observation Time Observation Value Commen ts Temperature 2025-03-14 11:44:00.000 97.8 [degF] Temperature 2025-03-08 16:32:00.000 99.3 [degF] Temperature 2025-02-21 13:33:00.000 99.6 [degF] Temperature 2025-02-09 13:27:00.000 98.4 [degF] BMI (%) 2025-03-08 16:10:48.000 21 kg/m2 BMI (%) 2025-02-21 13:33:00.000 21 kg/m2 BMI (%) 2025-02-09 12:52:45.000 21 kg/m2 Height 2025-03-08 16:10:42.000 61 [in_us] Height 2025-02-21 13:33:00.000 61 [in_us] Height 2025-02-09 12:52:39.000 61 [in_us] Pulse 2025-03-14 11:44:00.000 62 /min Pulse 2025-03-08 16:32:00.000 64 /min Pulse 2025-02-21 13:33:00.000 74 /min Pulse 2025-02-09 13:27:00.000 76 /min O2 Saturation (%) 2025-03-14 11:46:00.000 97 % O2 Saturation (%) 2025-03-08 16:32:00.000 92 % O2 Saturation (%) 2025-02-21 13:34:00.000 99 % O2 Saturation (%) 2025-02-09 13:27:00.000 99 % Respirations 2025-03-14 11:44:00.000 18 /min Respirations 2025-03-08 04:30:00.000 22 /min Respirations 2025-02-21 13:33:00.000 20 /min Respirations 2025-02-09 13:27:00.000 20 /min Weight (lbs) 2025-03-14 11:46:00.000 116 [lb_av] Weight (lbs) 2025-03-08 16:10:48.000 116 [lb_av] Weight (lbs) 2025-02-21 13:33:00.000 116 [lb_av] Weight (lbs) 2025-02-09 12:52:45.000 112 [lb_av] Systolic Blood Pressure 2025-03-14 11:44:00.000 100 mm [Hg] Systolic Blood Pressure 2025-03-08 16:32:00.000 100 mm [Hg] Systolic Blood Pressure 2025-02-21 13:33:00.000 147 mm [Hg] Systolic Blood Pressure 2025-02-09 13:30:00.000 178 mm [Hg] Diastolic Blood Pressure 2025-03-14 11:44:00.000 62 mm [Hg] Diastolic Blood Pressure 2025-03-08 16:32:00.000 60 mm [Hg] Diastolic Blood Pressure 2025-02-21 13:33:00.000 70 mm [Hg] Diastolic Blood Pressure 2025-02-09 13:30:00.000 80 mm [Hg] Plan of Treatment Planned Activity Planned Date Details Comments Future Scheduled Test RN TO OBSE RVE, ASSESS, EVALUATE, AND DEVELOP AN INDIVIDUALIZED PLAN OF CARE. AGENCY MAY ACCEPT ORDERS FROM CONSULTING PHYSICIANS GILES ARMENTA RN TO OBSERVE AND ASSESS, SOFTWARE APPLICATION TESTER/GRAVE DIGGER TO OBSERVE FOR RISK FOR FALLS AND INSTRUCT IN FALL PREVENTION, HOME SAFETY, MEDICATION MANAGEMENT, INFECTION PREVENTION, AND NUTRITION MANAGEMENT. RN/SOFTWARE APPLICATION TESTER/GRAVE DIGGER NURSE MAY PERFORM O2 SATURATION LEVEL ON ADMISSION AND PRN, FOR RN TO ASSESS/SOFTWARE APPLICATION TESTER TO OBSERVE PATIENT, WITH NOTIFICATION TO THE PHYSICIAN IF SATURATION IS 90% IN THE ABSENCE OF MORE SPECIFIC PARAMETERS FROM THE PHYSICIAN. AGENCY MAY PERFORM A RESUMPTION OF CARE VISIT FOLLOWING ANY HOSPITAL ADMISSION. RN/SOFTWARE APPLICATION TESTER/GRAVE DIGGER TO MONITOR CO-MORBID CONDITIONS LISTED ON THE PLAN OF CARE AND ANY NEW CONDITIONS THAT PRESENT THEMSELVES DURING THIS EPISODE TO IDENTIFY CHANGES AND INTERVENE TO MINIMIZE COMPLICATIONS. SUN [place] NP [code = RN TO OBSERVE, ASSESS, EVALUATE, AND DEVELOP AN INDIVIDUALIZED PLAN OF CARE. AGENCY MAY ACCEPT ORDERS FROM CONSULTING PHYSICIANS GILES ARMENTA RN TO OBSERVE AND ASSESS, SOFTWARE APPLICATION TESTER/GRAVE DIGGER TO OBSERVE FOR RISK FOR FALLS AND INSTRUCT IN FALL PREVENTION, HOME SAFETY, MEDICATION MANAGEMENT, INFECTION PREVENTION, AND NUTRITION MANAGEMENT. RN/SOFTWARE APPLICATION TESTER/GRAVE DIGGER NURSE MAY PERFORM O2 SATURATION LEVEL ON ADMISSION AND PRN, FOR RN TO ASSESS/SOFTWARE APPLICATION TESTER TO OBSERVE PATIENT, WITH NOTIFICATION TO THE PHYSICIAN IF SATURATION IS 90% IN THE ABSENCE OF MORE SPECIFIC PARAMETERS FROM THE PHYSICIAN. AGENCY MAY PERFORM A RESUMPTION OF CARE VISIT FOLLOWING ANY HOSPITAL ADMISSION. RN/SOFTWARE APPLICATION TESTER/GRAVE DIGGER TO MONITOR CO-MORBID CONDITIONS LISTED ON THE PLAN OF CARE AND ANY NEW CONDITIONS THAT PRESENT THEMSELVES DURING THIS EPISODE TO IDENTIFY CHANGES AND INTERVENE TO MINIMIZE COMPLICATIONS. SUN [place] ADDICTION SOCIAL WORKER] Future Scheduled Test MEDICATION MANAGEMENT; RN/SOFTWARE APPLICATION TESTER/GRAVE DIGGER TO REVIEW MEDICATIONS FOR INTERACTIONS, EFFECTIVENESS OF DRUG THERAPY, AND SIGNS/SYMPTOMS OF ADVERSE REACTIONS. MAY INSTRUCT AND REINFORCE MEDICATION TEACHING RELATED TO THE USE OF MEDICATIONS, DOSAGE, FREQUENCY, PURPOSE, SIDE EFFECTS, AND TO REPORT COMPLICATIONS. [code = MEDICATION MANAGEMENT; RN/SOFTWARE APPLICATION TESTER/GRAVE DIGGER TO REVIEW MEDICATIONS FOR INTERACTIONS, EFFECTIVENESS OF DRUG THERAPY, AND SIGNS/SYMPTOMS OF ADVERSE REACTIONS. MAY INSTRUCT AND REINFORCE MEDICATION TEACHING RELATED TO THE USE OF MEDICATIONS, DOSAGE, FREQUENCY, PURPOSE, SIDE EFFECTS, AND TO REPORT COMPLICATIONS.] Future Scheduled Test RISK FOR H OSPITALIZATION; RN TO ASSESS/TEACH, GRAVE DIGGER/SOFTWARE APPLICATION TESTER TO OBSERVE/TEACH PATIENT/CAREGIVER ON RISK FOR HOSPITALIZATION/EMERGENCY ROOM VISITS, TEACH SIGNS AND SYMPTOMS THAT PUT PATIENT AT RISK, WHEN TO NOTIFY NURSE/PHYSICIAN OF COMPLICATIONS/DECLINE, AND WHEN TO CALL 911. [code = RISK FOR HOSPITALIZATION; RN TO ASSESS/TEACH, GRAVE DIGGER/SOFTWARE APPLICATION TESTER TO OBSERVE/TEACH PATIENT/CAREGIVER ON RISK FOR HOSPITALIZATION/EMERGENCY ROOM VISITS, TEACH SIGNS AND SYMPTOMS THAT PUT PATIENT AT RISK, WHEN TO NOTIFY NURSE/PHYSICIAN OF COMPLICATIONS/DECLINE, AND WHEN TO CALL 911.] Future Scheduled Test CARDIOVASC ULAR SYSTEM; RN TO ASSESS/TEACH, SOFTWARE APPLICATION TESTER/GRAVE DIGGER TO OBSERVE/TEACH RELATED TO ALTERED CARDIOVASCULAR STATUS TO MINIMIZE COMPLICATIONS AND REDUCE HOSPITALIZATION. [code = CARDIOVASCULAR SYSTEM; RN TO ASSESS/TEACH, SOFTWARE APPLICATION TESTER/GRAVE DIGGER TO OBSERVE/TEACH RELATED TO ALTERED CARDIOVASCULAR STATUS TO MINIMIZE COMPLICATIONS AND REDUCE HOSPITALIZATION.] Future Scheduled Test HEART FAIL URE; RN TO ASSESS/TEACH, SOFTWARE APPLICATION TESTER/GRAVE DIGGER TO OBSERVE/TEACH CARDIOPULMONARY SYSTEM TO IDENTIFY SIGNS [...] [code = HEART FAILURE; RN TO ASSESS/TEACH, SOFTWARE APPLICATION TESTER/GRAVE DIGGER TO OBSERVE/TEACH CARDIOPULMONARY SYSTEM TO IDENTIFY SIGNS [...] ON MANAGEMENT; RN TO ASSESS AND TEACH, SOFTWARE APPLICATION TESTER/GRAVE DIGGER TO OBSERVE AND TEACH WARNING SIGNS AND SYMPTOMS TO AVOID HOSPITALIZATION. [code = HYPERTENSION MANAGEMENT; RN TO ASSESS AND TEACH, SOFTWARE APPLICATION TESTER/GRAVE DIGGER TO OBSERVE AND TEACH WARNING SIGNS AND SYMPTOMS TO AVOID HOSPITALIZATION.] Future Scheduled Test ANGINA MAN AGEMENT; RN TO ASSESS AND TEACH, SOFTWARE APPLICATION TESTER/GRAVE DIGGER TO OBSERVE AND TEACH WARNING SIGNS AND SYMPTOMS TO AVOID HOSPITALIZATION. [code = ANGINA MANAGEMENT; RN TO ASSESS AND TEACH, SOFTWARE APPLICATION TESTER/GRAVE DIGGER TO OBSERVE AND TEACH WARNING SIGNS AND SYMPTOMS TO AVOID HOSPITALIZATION.] Future Scheduled Test PAIN MANAG EMENT; RN TO ASSESS AND TEACH, GRAVE DIGGER/SOFTWARE APPLICATION TESTER TO OBSERVE AND TEACH AND PROVIDE EDUCATION ON PAIN MANAGEMENT TECHNIQUES. [code = PAIN MANAGEMENT; RN TO ASSESS AND TEACH, GRAVE DIGGER/SOFTWARE APPLICATION TESTER TO OBSERVE AND TEACH AND PROVIDE EDUCATION ON PAIN MANAGEMENT TECHNIQUES.] Future Scheduled Test RN TO ASSE SS AND TEACH, SOFTWARE APPLICATION TESTER/GRAVE DIGGER TO OBSERVE AND TEACH FOR SIGNS AND SYMPTOMS OF SEPSIS AND/OR POST-SEPSIS SYNDROME AND INTERVENE TO MINIMIZE COMPLICATIONS. RN/SOFTWARE APPLICATION TESTER/GRAVE DIGGER TO PROVIDE SKILLED TEACHING TO PATIENT/CAREGIVER ON SEPSIS AND SELF-MANAGEMENT TECHNIQUES. RN/SOFTWARE APPLICATION TESTER/GRAVE DIGGER TO MONITOR PATIENT/CAREGIVER ADHERENCE TO MONITOR AND RECORD VITAL SIGNS INCLUDING TEMPERATURE, HEART RATE, RESPIRATIONS, AND SYMPTOMS. RN/SOFTWARE APPLICATION TESTER/GRAVE DIGGER TO PROVIDE FPC TO ACCOMPLISH THE PATIENTS PERSONAL GOAL. [code = RN TO ASSESS AND TEACH, SOFTWARE APPLICATION TESTER/GRAVE DIGGER TO OBSERVE AND TEACH FOR SIGNS AND SYMPTOMS OF SEPSIS AND/OR POST-SEPSIS SYNDROME AND INTERVENE TO MINIMIZE COMPLICATIONS. RN/SOFTWARE APPLICATION TESTER/GRAVE DIGGER TO PROVIDE SKILLED TEACHING TO PATIENT/CAREGIVER ON SEPSIS AND SELF-MANAGEMENT TECHNIQUES. RN/SOFTWARE APPLICATION TESTER/GRAVE DIGGER TO MONITOR PATIENT/CAREGIVER ADHERENCE TO MONITOR AND RECORD VITAL SIGNS INCLUDING TEMPERATURE, HEART RATE, RESPIRATIONS, AND SYMPTOMS. RN/SOFTWARE APPLICATION TESTER/GRAVE DIGGER TO PROVIDE FPC TO ACCOMPLISH THE PATIENTS PERSONAL GOAL. ] Future Scheduled Test PHYSICAL T HERAPIST TO EVALUATE FOR STRENGTH AND BALANCE. [code = PHYSICAL THERAPIST TO EVALUATE FOR STRENGTH AND BALANCE.] Future Scheduled Test OCCUPATION AL THERAPIST TO EVALUATE FOR INDEPENDENT AD. L'S. [code = OCCUPATIONAL THERAPIST TO EVALUATE FOR INDEPENDENT AD. L'S.] Future Scheduled Test PRN VISITS ; NUMBER OF RN/SOFTWARE APPLICATION TESTER/GRAVE DIGGER VISITS: 2 RN/SOFTWARE APPLICATION TESTER/GRAVE DIGGER TO PERFORM: RESPIRATORY ASSESSMENT FOR THE FOLLOWING REASONS: EXACERBATION OF RESPIRATORY ASSESSMENT [code = PRN VISITS; NUMBER OF RN/SOFTWARE APPLICATION TESTER/GRAVE DIGGER VISITS: 2 RN/SOFTWARE APPLICATION TESTER/GRAVE DIGGER TO PERFORM: RESPIRATORY ASSESSMENT FOR THE FOLLOWING REASONS: EXACERBATION OF RESPIRATORY ASSESSMENT ] Goal 2025-02-21 Patient Goal - BREATH BETTER Goal 2025-03-08 Patient Goal - B REATH BETTER AND GET STRONGER Goal Patient Goal - B REATH BETTER [...] End Date/Time Encounter Type Admission Type Attending [facility] Facility Care Department Encounter ID Discharge Date Discharge Status Discharge Condition Discharge Reason Percent Goals Met 2025-02-09 00:00:00 2025-04-09 00:00:00 Outpatient NEW ADMISSION KAYODE GONZALESRA [facility] [id number]
--- OUTSIDE RECORDS SUMMARY | 2025-04-08 20:00 | XMS_ITS | Clinical Summary ---
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 [...] ON SUPPLEMENTAL OXYGEN Active 08-07 00:00: 00 [facility] (CURRENT) USE OF ANTITHROMBOT ICS/ANTIPLAT ELETS Active 08-07 00:00: 00 [facility] (CURRENT) USE OF INHALED STEROIDS Active 08-07 00:00: 00 [employer]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 (CURRENT) USE OF ORAL HYPOGLYCEMIC DRUGS Active [...] 02-04 00:00: 00 03-08 00:00 :00 No [id number] ANTIBIOTIC 1 tablet DAILY 1 tablet DAILY (route: oral) Med Classific ation: Anti-Infe ctive Agents irbesartan 75 mg tablet 02-04 00:00: 00 Yes [id number] HYPERTENTIO N 1 tablet DAILY 1 tablet DAILY (route: oral) Med Classific ation: Cardiovas cular Therapy Agents Jardiance 10 mg tablet 02-04 00:00: 00 Yes [id number] HEART FAILURE 1 tablet DAILY 1 tablet DAILY (route: oral) Med Classific ation: Endocrine prednisone 20 mg tablet 02-04 00:00: 00 03-08 00:00 :00 No [id number] ANTINFLAMIT ORY 2 tablet DAILY 2 tablet DAILY (route: oral) Med Classific ation: Endocrine spironolact one 25 mg tablet 02-04 00:00: 00 Yes [id number] DIURETIC 1 tablet DAILY 1 tablet DAILY (route: oral) Med Classific ation: Cardiovas cular Therapy Agents carvedilol 25 mg tablet - 00:00: 00 03-08 00:00 :00 No [id number] HEART FAILURE 1 tablet 2 TIMES DAILY 1 tablet 2 TIMES DAILY (route: oral) Med Classific ation: Cardiovas cular Therapy Agents furosemide 40 mg tablet -13 00:00: 00 03-08 00:00 :00 No [id number] DIURETIC 1 tablet DAILY 1 tablet DAILY (route: oral) Med Classific ation: Cardiovas cular Therapy Agents furosemide 20 mg tablet 01-10 00:00: 00 02-09 00:00 :00 No [id number] Per instruc tions ONCE DAILY Per instructio ns ONCE DAILY (route: oral) Med Classific ation: Cardiovas cular Therapy Agents isosorbide mononitrate ER 60 mg tablet,exte nded release 24 hr 01-07 00:00: 00 03-07 23:59 :00 No [id number] PREVENT ANGINA 1 tablet DAILY 1 tablet DAILY (route: oral) Med Classific ation: Cardiovas cular Therapy Agents albuterol sulfate HFA 90 mcg/actuati on aerosol inhaler 08-07 00:00: 00 Yes [id number] SOB OR WHEEZING 2 puff 4 TIMES DAILY 2 puff 4 TIMES DAILY (route: inhalation ) Med Classific ation: Respirato ry Therapy Agents atorvastati n 40 mg tablet 08-07 00:00: 00 Yes [id number] HYPERCHOLES TEROL 1 tablet DAILY 1 tablet DAILY (route: oral) Med Classific ation: Cardiovas cular Therapy Agents bupropion HCl 150 mg tablet,12 hr sustained-r elease(smok ing deterrent) 08-07 00:00: 00 03-07 23:59 :00 No [id number] ANTIDEPRESS ANT 1 tablet 2 TIMES DAILY 1 tablet 2 TIMES DAILY (route: oral) Med Classific ation: Chemical Dependenc y, Agents to Treat cyanocobala min (vit B-12) 1,000 mcg tablet 08-07 00:00: 00 Yes [id number] SUPPLIMENT 1 tablet DAILY 1 tablet DAILY (route: oral) Med Classific ation: Electroly te Balance-N utritiona l Products ipratropium 0.5 mg-albutero l 3 mg (2.5 mg base)/3 mL nebulizatio n soln 08-07 00:00: 00 Yes [id number] SOB OR WHEEZING 3 mL 4 TIMES DAILY 3 mL 4 TIMES DAILY (route: inhalation ) Med Classific ation: Respirato ry Therapy Agents meloxicam 15 mg tablet 08-07 00:00: 00 Yes [id number] NSAID 1 tablet DAILY 1 tablet DAILY (route: oral) Med Classific ation: Analgesic , Anti-infl ammatory or Antipyret ic montelukast 10 mg tablet 08-07 00:00: 00 Yes [id number] ASTHMA 1 tablet BEDTIME 1 tablet BEDTIME (route: oral) Med Classific ation: Respirato ry Therapy Agents Plavix 75 mg tablet 08-07 00:00: 00 Yes [id number] ANTICOAGULA NT 1 tablet DAILY 1 tablet DAILY (route: oral) Med Classific ation: Hematolog ical Agents rivastigmin e 4.6 mg/24 hour transdermal patch 08-07 00:00: 00 Yes [id number] COGNITIVE SYMPTOMS 1 patch, transde rmal 24 hours DAILY 1 patch, transderma l 24 hours DAILY (route: transderma l) Med Classific ation: Cognitive Disorder Therapy sertraline 100 mg tablet 08-07 00:00: 00 03-07 23:59 :00 No [id number] DEPRESSION 2 tablet DAILY 2 tablet DAILY (route: oral) Med Classific ation: Central Nervous System Agents Trelegy Ellipta 100 mcg-62.5 mcg-25 mcg powder for inhalation 08-07 00:00: 00 Yes [id number] COPD 1 inhalat ion DAILY 1 inhalation DAILY (route: inhalation ) Med Classific ation: Respirato ry Therapy Agents acetaminoph en 500 mg tablet 08-07 00:00: 00 Yes [id number] PAIN 2 tablet EVERY 8 HOURS 2 tablet EVERY 8 HOURS (route: oral) Med Classific ation: Analgesic , Anti-infl ammatory or Antipyret ic Adult Low Dose Aspirin 81 mg tablet,aaliyah yed release 08-07 00:00: 00 03-08 00:00 :00 No [id number] BLOOD THINNER 1 tablet DAILY 1 tablet DAILY (route: oral) Med Classific ation: Hematolog ical Agents diphenhydra mine 25 mg tablet 08-07 00:00: 00 03-08 00:00 :00 No [id number] ALLERGIES 1 tablet DAILY 1 tablet DAILY (route: oral) Med Classific ation: Respirato ry Therapy Agents ibuprofen 200 mg tablet 08-07 00:00: 00 Yes [id number] PAIN 1 tablet 2 TIMES DAILY 1 tablet 2 TIMES DAILY (route: oral) Med Classific ation: Analgesic , Anti-infl ammatory or Antipyret ic melatonin 12 mg tablet 08-07 00:00: 00 03-08 00:00 :00 No [id number] SLEEP SUPPORT 1 tablet BEDTIME 1 tablet BEDTIME (route: oral) Med Classific ation: Central Nervous System Agents nitroglycer in 0.4 mg sublingual tablet 08-07 00:00: 00 Yes [id number] CHEST PAIN 1 tablet NEEDED 1 tablet NEEDED (route: sublingual ) Med Classific ation: Cardiovas cular Therapy Agents buspirone 5 mg tablet 03-07 00:00: 00 Yes [id number] ANTIDEPRESS ION 1 tablet 3 TIMES DAILY 1 tablet 3 TIMES DAILY (route: oral) Med Classific ation: Central Nervous System Agents escitalopra m 20 mg tablet 03-07 00:00: 00 Yes [id number] ANTIDEPRESS ANT 1 tablet DAILY 1 tablet DAILY (route: oral) Med Classific ation: Central Nervous System Agents furosemide 40 mg tablet 03-07 00:00: 00 Yes [id number] DIURETIC 1 tablet 2 TIMES DAILY 1 tablet 2 TIMES DAILY (route: oral) Med Classific ation: Cardiovas cular Therapy Agents hydrocodone 10 mg-acetamin ophen 325 mg tablet 03-07 00:00: 00 Yes [id number] PAIN 1 tablet EVERY 8 HOURS 1 tablet EVERY 8 HOURS (route: oral) Med Classific ation: Analgesic , Anti-infl ammatory or Antipyret ic hydroxyzine pamoate 25 mg capsule 03-07 00:00: 00 Yes [id number] ANXIETY 1 capsule 3 TIMES DAILY 1 capsule 3 TIMES DAILY (route: oral) Med Classific ation: Central Nervous System Agents polyethylen e glycol 3350 17 gram/dose oral powder 03-07 00:00: 00 Yes [id number] CONSTIPATIO N 17 gram DAILY 17 gram DAILY (route: oral) Med Classific ation: Gastroint estinal Therapy Agents potassium chloride ER 20 mEq tablet,exte nded release 03-07 00:00: 00 Yes [id number] SUPPLIMENT 1 tablet DAILY 1 tablet DAILY [...] GILES ARMENTA RN TO OBSERVE AND ASSESS, ELECTROPLATING WORKER/SEWING INSPECTOR TO OBSERVE FOR RISK FOR FALLS AND INSTRUCT IN FALL PREVENTION, HOME SAFETY, MEDICATION MANAGEMENT, INFECTION PREVENTION, AND NUTRITION MANAGEMENT. RN/ELECTROPLATING WORKER/SEWING INSPECTOR NURSE MAY PERFORM O2 SATURATION LEVEL ON ADMISSION AND PRN, FOR RN TO ASSESS/ELECTROPLATING WORKER TO OBSERVE PATIENT, WITH NOTIFICATION TO THE PHYSICIAN IF SATURATION IS 90% IN THE ABSENCE OF MORE SPECIFIC PARAMETERS FROM THE PHYSICIAN. AGENCY MAY PERFORM A RESUMPTION OF CARE VISIT FOLLOWING ANY HOSPITAL ADMISSION. RN/ELECTROPLATING WORKER/SEWING INSPECTOR TO MONITOR CO-MORBID CONDITIONS LISTED ON THE PLAN OF CARE AND ANY NEW CONDITIONS THAT PRESENT THEMSELVES DURING THIS EPISODE TO IDENTIFY CHANGES AND INTERVENE TO MINIMIZE COMPLICATIONS. SUN [place] NP [code = RN TO OBSERVE, ASSESS, EVALUATE, AND DEVELOP AN INDIVIDUALIZED PLAN OF CARE. AGENCY MAY ACCEPT ORDERS FROM CONSULTING PHYSICIANS GILES ARMENTA RN TO OBSERVE AND ASSESS, ELECTROPLATING WORKER/SEWING INSPECTOR TO OBSERVE FOR RISK FOR FALLS AND INSTRUCT IN FALL PREVENTION, HOME SAFETY, MEDICATION MANAGEMENT, INFECTION PREVENTION, AND NUTRITION MANAGEMENT. RN/ELECTROPLATING WORKER/SEWING INSPECTOR NURSE MAY PERFORM O2 SATURATION LEVEL ON ADMISSION AND PRN, FOR RN TO ASSESS/ELECTROPLATING WORKER TO OBSERVE PATIENT, WITH NOTIFICATION TO THE PHYSICIAN IF SATURATION IS 90% IN THE ABSENCE OF MORE SPECIFIC PARAMETERS FROM THE PHYSICIAN. AGENCY MAY PERFORM A RESUMPTION OF CARE VISIT FOLLOWING ANY HOSPITAL ADMISSION. RN/ELECTROPLATING WORKER/SEWING INSPECTOR TO MONITOR CO-MORBID CONDITIONS LISTED ON THE PLAN OF CARE AND ANY NEW CONDITIONS THAT PRESENT THEMSELVES DURING THIS EPISODE TO IDENTIFY CHANGES AND INTERVENE TO MINIMIZE COMPLICATIONS. SUN [place] CLOTHES MODEL] Future Scheduled Test MEDICATION MANAGEMENT; RN/ELECTROPLATING WORKER/SEWING INSPECTOR TO REVIEW MEDICATIONS FOR INTERACTIONS, EFFECTIVENESS OF DRUG THERAPY, AND SIGNS/SYMPTOMS OF ADVERSE REACTIONS. MAY INSTRUCT AND REINFORCE MEDICATION TEACHING RELATED TO THE USE OF MEDICATIONS, DOSAGE, FREQUENCY, PURPOSE, SIDE EFFECTS, AND TO REPORT COMPLICATIONS. [code = MEDICATION MANAGEMENT; RN/ELECTROPLATING WORKER/SEWING INSPECTOR TO REVIEW MEDICATIONS FOR INTERACTIONS, EFFECTIVENESS OF DRUG THERAPY, AND SIGNS/SYMPTOMS OF ADVERSE REACTIONS. MAY INSTRUCT AND REINFORCE MEDICATION TEACHING RELATED TO THE USE OF MEDICATIONS, DOSAGE, FREQUENCY, PURPOSE, SIDE EFFECTS, AND TO REPORT COMPLICATIONS.] Future Scheduled Test RISK FOR H OSPITALIZATION; RN TO ASSESS/TEACH, SEWING INSPECTOR/ELECTROPLATING WORKER TO OBSERVE/TEACH PATIENT/CAREGIVER ON RISK FOR HOSPITALIZATION/EMERGENCY ROOM VISITS, TEACH SIGNS AND SYMPTOMS THAT PUT PATIENT AT RISK, WHEN TO NOTIFY NURSE/PHYSICIAN OF COMPLICATIONS/DECLINE, AND WHEN TO CALL 911. [code = RISK FOR HOSPITALIZATION; RN TO ASSESS/TEACH, SEWING INSPECTOR/ELECTROPLATING WORKER TO OBSERVE/TEACH PATIENT/CAREGIVER ON RISK FOR HOSPITALIZATION/EMERGENCY ROOM VISITS, TEACH SIGNS AND SYMPTOMS THAT PUT PATIENT AT RISK, WHEN TO NOTIFY NURSE/PHYSICIAN OF COMPLICATIONS/DECLINE, AND WHEN TO CALL 911.] Future Scheduled Test CARDIOVASC ULAR SYSTEM; RN TO ASSESS/TEACH, ELECTROPLATING WORKER/SEWING INSPECTOR TO OBSERVE/TEACH RELATED TO ALTERED CARDIOVASCULAR STATUS TO MINIMIZE COMPLICATIONS AND REDUCE HOSPITALIZATION. [code = CARDIOVASCULAR SYSTEM; RN TO ASSESS/TEACH, ELECTROPLATING WORKER/SEWING INSPECTOR TO OBSERVE/TEACH RELATED TO ALTERED CARDIOVASCULAR STATUS TO MINIMIZE COMPLICATIONS AND REDUCE HOSPITALIZATION.] Future Scheduled Test HEART FAIL URE; RN TO ASSESS/TEACH, ELECTROPLATING WORKER/SEWING INSPECTOR TO OBSERVE/TEACH CARDIOPULMONARY SYSTEM TO IDENTIFY SIGNS [...] [code = HEART FAILURE; RN TO ASSESS/TEACH, ELECTROPLATING WORKER/SEWING INSPECTOR TO OBSERVE/TEACH CARDIOPULMONARY SYSTEM TO IDENTIFY SIGNS [...] ON MANAGEMENT; RN TO ASSESS AND TEACH, ELECTROPLATING WORKER/SEWING INSPECTOR TO OBSERVE AND TEACH WARNING SIGNS AND SYMPTOMS TO AVOID HOSPITALIZATION. [code = HYPERTENSION MANAGEMENT; RN TO ASSESS AND TEACH, ELECTROPLATING WORKER/SEWING INSPECTOR TO OBSERVE AND TEACH WARNING SIGNS AND SYMPTOMS TO AVOID HOSPITALIZATION.] Future Scheduled Test ANGINA MAN AGEMENT; RN TO ASSESS AND TEACH, ELECTROPLATING WORKER/SEWING INSPECTOR TO OBSERVE AND TEACH WARNING SIGNS AND SYMPTOMS TO AVOID HOSPITALIZATION. [code = ANGINA MANAGEMENT; RN TO ASSESS AND TEACH, ELECTROPLATING WORKER/SEWING INSPECTOR TO OBSERVE AND TEACH WARNING SIGNS AND SYMPTOMS TO AVOID HOSPITALIZATION.] Future Scheduled Test PAIN MANAG EMENT; RN TO ASSESS AND TEACH, SEWING INSPECTOR/ELECTROPLATING WORKER TO OBSERVE AND TEACH AND PROVIDE EDUCATION ON PAIN MANAGEMENT TECHNIQUES. [code = PAIN MANAGEMENT; RN TO ASSESS AND TEACH, SEWING INSPECTOR/ELECTROPLATING WORKER TO OBSERVE AND TEACH AND PROVIDE EDUCATION ON PAIN MANAGEMENT TECHNIQUES.] Future Scheduled Test RN TO ASSE SS AND TEACH, ELECTROPLATING WORKER/SEWING INSPECTOR TO OBSERVE AND TEACH FOR SIGNS AND SYMPTOMS OF SEPSIS AND/OR POST-SEPSIS SYNDROME AND INTERVENE TO MINIMIZE COMPLICATIONS. RN/ELECTROPLATING WORKER/SEWING INSPECTOR TO PROVIDE SKILLED TEACHING TO PATIENT/CAREGIVER ON SEPSIS AND SELF-MANAGEMENT TECHNIQUES. RN/ELECTROPLATING WORKER/SEWING INSPECTOR TO MONITOR PATIENT/CAREGIVER ADHERENCE TO MONITOR AND RECORD VITAL SIGNS INCLUDING TEMPERATURE, HEART RATE, RESPIRATIONS, AND SYMPTOMS. RN/ELECTROPLATING WORKER/SEWING INSPECTOR TO PROVIDE CORRECTION TO ACCOMPLISH THE PATIENTS PERSONAL GOAL. [code = RN TO ASSESS AND TEACH, ELECTROPLATING WORKER/SEWING INSPECTOR TO OBSERVE AND TEACH FOR SIGNS AND SYMPTOMS OF SEPSIS AND/OR POST-SEPSIS SYNDROME AND INTERVENE TO MINIMIZE COMPLICATIONS. RN/ELECTROPLATING WORKER/SEWING INSPECTOR TO PROVIDE SKILLED TEACHING TO PATIENT/CAREGIVER ON SEPSIS AND SELF-MANAGEMENT TECHNIQUES. RN/ELECTROPLATING WORKER/SEWING INSPECTOR TO MONITOR PATIENT/CAREGIVER ADHERENCE TO MONITOR AND RECORD VITAL SIGNS INCLUDING TEMPERATURE, HEART RATE, RESPIRATIONS, AND SYMPTOMS. RN/ELECTROPLATING WORKER/SEWING INSPECTOR TO PROVIDE CORRECTION TO ACCOMPLISH THE PATIENTS PERSONAL GOAL. ] Future Scheduled Test PHYSICAL T HERAPIST TO EVALUATE FOR STRENGTH AND BALANCE. [code = PHYSICAL THERAPIST TO EVALUATE FOR STRENGTH AND BALANCE.] Future Scheduled Test OCCUPATION AL THERAPIST TO EVALUATE FOR INDEPENDENT AD. L'S. [code = OCCUPATIONAL THERAPIST TO EVALUATE FOR INDEPENDENT AD. L'S.] Future Scheduled Test PRN VISITS ; NUMBER OF RN/ELECTROPLATING WORKER/SEWING INSPECTOR VISITS: 2 RN/ELECTROPLATING WORKER/SEWING INSPECTOR TO PERFORM: RESPIRATORY ASSESSMENT FOR THE FOLLOWING REASONS: EXACERBATION OF RESPIRATORY ASSESSMENT [code = PRN VISITS; NUMBER OF RN/ELECTROPLATING WORKER/SEWING INSPECTOR VISITS: 2 RN/ELECTROPLATING WORKER/SEWING INSPECTOR TO PERFORM: RESPIRATORY ASSESSMENT FOR THE FOLLOWING [...] End Date/Time Encounter Type Admission Type Attending [facility] Care Department Encounter ID Discharge Date Discharge Status Discharge Condition Discharge Reason Percent Goals Met 2025-02-09 00:00:00 2025-04-09 00:00:00 Outpatient NEW ADMISSION KAYODE GONZALESRA [facility] [id number]
== END 2025-03-31 23:59 | disposition home or self-care (01) ==
LOC: RT 13:52
PROVIDERS: PCP Nurse Practitioner; Visit Provider Internal Medicine Pulmonary Disease
DX: J44.9 Chronic obstructive pulmonary disease, unspecified (principal); R94.2 Abnormal results of pulmonary function studies
CPT/HCPCS: 94010

== ENCOUNTER 2025-06-01 21:06 | Emergency (ER) | payer MEDICARE, SELFPAY ==
--- OUTSIDE RECORDS SUMMARY | 2025-04-08 20:00 | XMS_ITS | Clinical Summary ---
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 [...] ON SUPPLEMENTAL OXYGEN Active 08-07 00:00: 00 CARE HOME (CURRENT) USE OF ANTITHROMBOT ICS/ANTIPLAT ELETS Active 08-07 00:00: 00 CARE HOME (CURRENT) USE OF INHALED STEROIDS Active 08-07 00:00: 00 CARE HOME (CURRENT) USE OF ORAL HYPOGLYCEMIC DRUGS Active [...] 02-04 00:00: 00 03-08 00:00 :00 No [id number] ANTIBIOTIC 1 tablet DAILY 1 tablet DAILY (route: oral) Med Classific ation: Anti-Infe ctive Agents irbesartan 75 mg tablet 02-04 00:00: 00 Yes [id number] HYPERTENTIO N 1 tablet DAILY 1 tablet DAILY (route: oral) Med Classific ation: Cardiovas cular Therapy Agents Jardiance 10 mg tablet 02-04 00:00: 00 Yes [id number] HEART FAILURE 1 tablet DAILY 1 tablet DAILY (route: oral) Med Classific ation: Endocrine prednisone 20 mg tablet 02-04 00:00: 00 03-08 00:00 :00 No [id number] ANTINFLAMIT ORY 2 tablet DAILY 2 tablet DAILY (route: oral) Med Classific ation: Endocrine spironolact one 25 mg tablet 02-04 00:00: 00 Yes [id number] DIURETIC 1 tablet DAILY 1 tablet DAILY (route: oral) Med Classific ation: Cardiovas cular Therapy Agents carvedilol 25 mg tablet - 00:00: 00 03-08 00:00 :00 No [id number] HEART FAILURE 1 tablet 2 TIMES DAILY 1 tablet 2 TIMES DAILY (route: oral) Med Classific ation: Cardiovas cular Therapy Agents furosemide 40 mg tablet -13 00:00: 00 03-08 00:00 :00 No [id number] DIURETIC 1 tablet DAILY 1 tablet DAILY (route: oral) Med Classific ation: Cardiovas cular Therapy Agents furosemide 20 mg tablet 01-10 00:00: 00 02-09 00:00 :00 No [id number] Per instruc tions ONCE DAILY Per instructio ns ONCE DAILY (route: oral) Med Classific ation: Cardiovas cular Therapy Agents isosorbide mononitrate ER 60 mg tablet,exte nded release 24 hr 01-07 00:00: 00 03-07 23:59 :00 No [id number] PREVENT ANGINA 1 tablet DAILY 1 tablet DAILY (route: oral) Med Classific ation: Cardiovas cular Therapy Agents albuterol sulfate HFA 90 mcg/actuati on aerosol inhaler 08-07 00:00: 00 Yes [id number] SOB OR WHEEZING 2 puff 4 TIMES DAILY 2 puff 4 TIMES DAILY (route: inhalation ) Med Classific ation: Respirato ry Therapy Agents atorvastati n 40 mg tablet 08-07 00:00: 00 Yes [id number] HYPERCHOLES TEROL 1 tablet DAILY 1 tablet DAILY (route: oral) Med Classific ation: Cardiovas cular Therapy Agents bupropion HCl 150 mg tablet,12 hr sustained-r elease(smok ing deterrent) 08-07 00:00: 00 03-07 23:59 :00 No [id number] ANTIDEPRESS ANT 1 tablet 2 TIMES DAILY 1 tablet 2 TIMES DAILY (route: oral) Med Classific ation: Chemical Dependenc y, Agents to Treat cyanocobala min (vit B-12) 1,000 mcg tablet 08-07 00:00: 00 Yes [id number] SUPPLIMENT 1 tablet DAILY 1 tablet DAILY (route: oral) Med Classific ation: Electroly te Balance-N utritiona l Products ipratropium 0.5 mg-albutero l 3 mg (2.5 mg base)/3 mL nebulizatio n soln 08-07 00:00: 00 Yes [id number] SOB OR WHEEZING 3 mL 4 TIMES DAILY 3 mL 4 TIMES DAILY (route: inhalation ) Med Classific ation: Respirato ry Therapy Agents meloxicam 15 mg tablet 08-07 00:00: 00 Yes [id number] NSAID 1 tablet DAILY 1 tablet DAILY (route: oral) Med Classific ation: Analgesic , Anti-infl ammatory or Antipyret ic montelukast 10 mg tablet 08-07 00:00: 00 Yes [id number] ASTHMA 1 tablet BEDTIME 1 tablet BEDTIME (route: oral) Med Classific ation: Respirato ry Therapy Agents Plavix 75 mg tablet 08-07 00:00: 00 Yes [id number] ANTICOAGULA NT 1 tablet DAILY 1 tablet DAILY (route: oral) Med Classific ation: Hematolog ical Agents rivastigmin e 4.6 mg/24 hour transdermal patch 08-07 00:00: 00 Yes [id number] COGNITIVE SYMPTOMS 1 patch, transde rmal 24 hours DAILY 1 patch, transderma l 24 hours DAILY (route: transderma l) Med Classific ation: Cognitive Disorder Therapy sertraline 100 mg tablet 08-07 00:00: 00 03-07 23:59 :00 No [id number] DEPRESSION 2 tablet DAILY 2 tablet DAILY (route: oral) Med Classific ation: Central Nervous System Agents Trelegy Ellipta 100 mcg-62.5 mcg-25 mcg powder for inhalation 08-07 00:00: 00 Yes [id number] COPD 1 inhalat ion DAILY 1 inhalation DAILY (route: inhalation ) Med Classific ation: Respirato ry Therapy Agents acetaminoph en 500 mg tablet 08-07 00:00: 00 Yes [id number] PAIN 2 tablet EVERY 8 HOURS 2 tablet EVERY 8 HOURS (route: oral) Med Classific ation: Analgesic , Anti-infl ammatory or Antipyret ic Adult Low Dose Aspirin 81 mg tablet,aaliyah yed release 08-07 00:00: 00 03-08 00:00 :00 No [id number] BLOOD THINNER 1 tablet DAILY 1 tablet DAILY (route: oral) Med Classific ation: Hematolog ical Agents diphenhydra mine 25 mg tablet 08-07 00:00: 00 03-08 00:00 :00 No [id number] ALLERGIES 1 tablet DAILY 1 tablet DAILY (route: oral) Med Classific ation: Respirato ry Therapy Agents ibuprofen 200 mg tablet 08-07 00:00: 00 Yes [id number] PAIN 1 tablet 2 TIMES DAILY 1 tablet 2 TIMES DAILY (route: oral) Med Classific ation: Analgesic , Anti-infl ammatory or Antipyret ic melatonin 12 mg tablet 08-07 00:00: 00 03-08 00:00 :00 No [id number] SLEEP SUPPORT 1 tablet BEDTIME 1 tablet BEDTIME (route: oral) Med Classific ation: Central Nervous System Agents nitroglycer in 0.4 mg sublingual tablet 08-07 00:00: 00 Yes [id number] CHEST PAIN 1 tablet NEEDED 1 tablet NEEDED (route: sublingual ) Med Classific ation: Cardiovas cular Therapy Agents buspirone 5 mg tablet 03-07 00:00: 00 Yes [id number] ANTIDEPRESS ION 1 tablet 3 TIMES DAILY 1 tablet 3 TIMES DAILY (route: oral) Med Classific ation: Central Nervous System Agents escitalopra m 20 mg tablet 03-07 00:00: 00 Yes [id number] ANTIDEPRESS ANT 1 tablet DAILY 1 tablet DAILY (route: oral) Med Classific ation: Central Nervous System Agents furosemide 40 mg tablet 03-07 00:00: 00 Yes [id number] DIURETIC 1 tablet 2 TIMES DAILY 1 tablet 2 TIMES DAILY (route: oral) Med Classific ation: Cardiovas cular Therapy Agents hydrocodone 10 mg-acetamin ophen 325 mg tablet 03-07 00:00: 00 Yes [id number] PAIN 1 tablet EVERY 8 HOURS 1 tablet EVERY 8 HOURS (route: oral) Med Classific ation: Analgesic , Anti-infl ammatory or Antipyret ic hydroxyzine pamoate 25 mg capsule 03-07 00:00: 00 Yes [id number] ANXIETY 1 capsule 3 TIMES DAILY 1 capsule 3 TIMES DAILY (route: oral) Med Classific ation: Central Nervous System Agents polyethylen e glycol 3350 17 gram/dose oral powder 03-07 00:00: 00 Yes [id number] CONSTIPATIO N 17 gram DAILY 17 gram DAILY (route: oral) Med Classific ation: Gastroint estinal Therapy Agents potassium chloride ER 20 mEq tablet,exte nded release 03-07 00:00: 00 Yes [id number] SUPPLIMENT 1 tablet DAILY 1 tablet DAILY (route: oral) Med Classific ation: Electroly te Balance-N utritiona l Products Vital Signs Vital Name Observation Time Observation Value Commen ts Temperature 2025-04-04 12:39:00.000 99.1 [degF] Temperature 2025-03-14 11:44:00.000 97.8 [degF] Temperature 2025-03-08 16:32:00.000 99.3 [degF] Temperature 2025-02-21 13:33:00.000 99.6 [degF] Temperature 2025-02-09 13:27:00.000 98.4 [degF] BMI (%) 2025-03-08 16:10:48.000 21 kg/m2 BMI (%) 2025-02-21 13:33:00.000 21 kg/m2 BMI (%) 2025-02-09 12:52:45.000 21 kg/m2 Height 2025-03-08 16:10:42.000 61 [in_us] Height 2025-02-21 13:33:00.000 61 [in_us] Height 2025-02-09 12:52:39.000 61 [in_us] Pulse 2025-04-04 12:39:00.000 60 /min Pulse 2025-03-14 11:44:00.000 62 /min Pulse 2025-03-08 16:32:00.000 64 /min Pulse 2025-02-21 13:33:00.000 74 /min Pulse 2025-02-09 13:27:00.000 76 /min O2 Saturation (%) 2025-04-04 12:40:00.000 97 % O2 Saturation (%) 2025-03-14 11:46:00.000 97 % O2 Saturation (%) 2025-03-08 16:32:00.000 92 % O2 Saturation (%) 2025-02-21 13:34:00.000 99 % O2 Saturation (%) 2025-02-09 13:27:00.000 99 % Respirations 2025-04-04 12:39:00.000 22 /min Respirations 2025-03-14 11:44:00.000 18 /min Respirations 2025-03-08 04:30:00.000 22 /min Respirations 2025-02-21 13:33:00.000 20 /min Respirations 2025-02-09 13:27:00.000 20 /min Weight (lbs) 2025-04-04 12:40:00.000 107 [lb_av] Weight (lbs) 2025-03-14 11:46:00.000 116 [lb_av] Weight (lbs) 2025-03-08 16:10:48.000 116 [lb_av] Weight (lbs) 2025-02-21 13:33:00.000 116 [lb_av] Weight (lbs) 2025-02-09 12:52:45.000 112 [lb_av] Systolic Blood Pressure 2025-04-04 12:39:00.000 130 mm [Hg] Systolic Blood Pressure 2025-03-14 11:44:00.000 100 mm [Hg] Systolic Blood Pressure 2025-03-08 16:32:00.000 100 mm [Hg] Systolic Blood Pressure 2025-02-21 13:33:00.000 147 mm [Hg] Systolic Blood Pressure 2025-02-09 13:30:00.000 178 mm [Hg] Diastolic Blood Pressure 2025-04-04 12:39:00.000 60 mm [Hg] Diastolic Blood Pressure 2025-03-14 11:44:00.000 [...] GILES ARMENTA RN TO OBSERVE AND ASSESS, J2EE PROGRAMMER/MOBILE SALES ASSISTANT TO OBSERVE FOR RISK FOR FALLS AND INSTRUCT IN FALL PREVENTION, HOME SAFETY, MEDICATION MANAGEMENT, INFECTION PREVENTION, AND NUTRITION MANAGEMENT. RN/J2EE PROGRAMMER/MOBILE SALES ASSISTANT NURSE MAY PERFORM O2 SATURATION LEVEL ON ADMISSION AND PRN, FOR RN TO ASSESS/J2EE PROGRAMMER TO OBSERVE PATIENT, WITH NOTIFICATION TO THE PHYSICIAN IF SATURATION IS 90% IN THE ABSENCE OF MORE SPECIFIC PARAMETERS FROM THE PHYSICIAN. AGENCY MAY PERFORM A RESUMPTION OF CARE VISIT FOLLOWING ANY HOSPITAL ADMISSION. RN/J2EE PROGRAMMER/MOBILE SALES ASSISTANT TO MONITOR CO-MORBID CONDITIONS LISTED ON THE PLAN OF CARE AND ANY NEW CONDITIONS THAT PRESENT THEMSELVES DURING THIS EPISODE TO IDENTIFY CHANGES AND INTERVENE TO MINIMIZE COMPLICATIONS. SUN AUSTIN NP [code = RN TO OBSERVE, ASSESS, EVALUATE, AND DEVELOP AN INDIVIDUALIZED PLAN OF CARE. AGENCY MAY ACCEPT ORDERS FROM CONSULTING PHYSICIANS GILES ARMENTA RN TO OBSERVE AND ASSESS, J2EE PROGRAMMER/MOBILE SALES ASSISTANT TO OBSERVE FOR RISK FOR FALLS AND INSTRUCT IN FALL PREVENTION, HOME SAFETY, MEDICATION MANAGEMENT, INFECTION PREVENTION, AND NUTRITION MANAGEMENT. RN/J2EE PROGRAMMER/MOBILE SALES ASSISTANT NURSE MAY PERFORM O2 SATURATION LEVEL ON ADMISSION AND PRN, FOR RN TO ASSESS/J2EE PROGRAMMER TO OBSERVE PATIENT, WITH NOTIFICATION TO THE PHYSICIAN IF SATURATION IS 90% IN THE ABSENCE OF MORE SPECIFIC PARAMETERS FROM THE PHYSICIAN. AGENCY MAY PERFORM A RESUMPTION OF CARE VISIT FOLLOWING ANY HOSPITAL ADMISSION. RN/J2EE PROGRAMMER/MOBILE SALES ASSISTANT TO MONITOR CO-MORBID CONDITIONS LISTED ON THE PLAN OF CARE AND ANY NEW CONDITIONS THAT PRESENT THEMSELVES DURING THIS EPISODE TO IDENTIFY CHANGES AND INTERVENE TO MINIMIZE COMPLICATIONS. SUN AUSTIN NP] Future Scheduled Test MEDICATION MANAGEMENT; RN/J2EE PROGRAMMER/MOBILE SALES ASSISTANT TO REVIEW MEDICATIONS FOR INTERACTIONS, EFFECTIVENESS OF DRUG THERAPY, AND SIGNS/SYMPTOMS OF ADVERSE REACTIONS. MAY INSTRUCT AND REINFORCE MEDICATION TEACHING RELATED TO THE USE OF MEDICATIONS, DOSAGE, FREQUENCY, PURPOSE, SIDE EFFECTS, AND TO REPORT COMPLICATIONS. [code = MEDICATION MANAGEMENT; RN/J2EE PROGRAMMER/MOBILE SALES ASSISTANT TO REVIEW MEDICATIONS FOR INTERACTIONS, EFFECTIVENESS OF DRUG THERAPY, AND SIGNS/SYMPTOMS OF ADVERSE REACTIONS. MAY INSTRUCT AND REINFORCE MEDICATION TEACHING RELATED TO THE USE OF MEDICATIONS, DOSAGE, FREQUENCY, PURPOSE, SIDE EFFECTS, AND TO REPORT COMPLICATIONS.] Future Scheduled Test RISK FOR H OSPITALIZATION; RN TO ASSESS/TEACH, MOBILE SALES ASSISTANT/J2EE PROGRAMMER TO OBSERVE/TEACH PATIENT/CAREGIVER ON RISK FOR HOSPITALIZATION/EMERGENCY ROOM VISITS, TEACH SIGNS AND SYMPTOMS THAT PUT PATIENT AT RISK, WHEN TO NOTIFY NURSE/PHYSICIAN OF COMPLICATIONS/DECLINE, AND WHEN TO CALL 911. [code = RISK FOR HOSPITALIZATION; RN TO ASSESS/TEACH, MOBILE SALES ASSISTANT/J2EE PROGRAMMER TO OBSERVE/TEACH PATIENT/CAREGIVER ON RISK FOR HOSPITALIZATION/EMERGENCY ROOM VISITS, TEACH SIGNS AND SYMPTOMS THAT PUT PATIENT AT RISK, WHEN TO NOTIFY NURSE/PHYSICIAN OF COMPLICATIONS/DECLINE, AND WHEN TO CALL 911.] Future Scheduled Test CARDIOVASC ULAR SYSTEM; RN TO ASSESS/TEACH, J2EE PROGRAMMER/MOBILE SALES ASSISTANT TO OBSERVE/TEACH RELATED TO ALTERED CARDIOVASCULAR STATUS TO MINIMIZE COMPLICATIONS AND REDUCE HOSPITALIZATION. [code = CARDIOVASCULAR SYSTEM; RN TO ASSESS/TEACH, J2EE PROGRAMMER/MOBILE SALES ASSISTANT TO OBSERVE/TEACH RELATED TO ALTERED CARDIOVASCULAR STATUS TO MINIMIZE COMPLICATIONS AND REDUCE HOSPITALIZATION.] Future Scheduled Test HEART FAIL URE; RN TO ASSESS/TEACH, J2EE PROGRAMMER/MOBILE SALES ASSISTANT TO OBSERVE/TEACH CARDIOPULMONARY SYSTEM TO IDENTIFY SIGNS [...] [code = HEART FAILURE; RN TO ASSESS/TEACH, J2EE PROGRAMMER/MOBILE SALES ASSISTANT TO OBSERVE/TEACH CARDIOPULMONARY SYSTEM TO IDENTIFY SIGNS [...] ON MANAGEMENT; RN TO ASSESS AND TEACH, J2EE PROGRAMMER/MOBILE SALES ASSISTANT TO OBSERVE AND TEACH WARNING SIGNS AND SYMPTOMS TO AVOID HOSPITALIZATION. [code = HYPERTENSION MANAGEMENT; RN TO ASSESS AND TEACH, J2EE PROGRAMMER/MOBILE SALES ASSISTANT TO OBSERVE AND TEACH WARNING SIGNS AND SYMPTOMS TO AVOID HOSPITALIZATION.] Future Scheduled Test ANGINA MAN AGEMENT; RN TO ASSESS AND TEACH, J2EE PROGRAMMER/MOBILE SALES ASSISTANT TO OBSERVE AND TEACH WARNING SIGNS AND SYMPTOMS TO AVOID HOSPITALIZATION. [code = ANGINA MANAGEMENT; RN TO ASSESS AND TEACH, J2EE PROGRAMMER/MOBILE SALES ASSISTANT TO OBSERVE AND TEACH WARNING SIGNS AND SYMPTOMS TO AVOID HOSPITALIZATION.] Future Scheduled Test PAIN MANAG EMENT; RN TO ASSESS AND TEACH, MOBILE SALES ASSISTANT/J2EE PROGRAMMER TO OBSERVE AND TEACH AND PROVIDE EDUCATION ON PAIN MANAGEMENT TECHNIQUES. [code = PAIN MANAGEMENT; RN TO ASSESS AND TEACH, MOBILE SALES ASSISTANT/J2EE PROGRAMMER TO OBSERVE AND TEACH AND PROVIDE EDUCATION ON PAIN MANAGEMENT TECHNIQUES.] Future Scheduled Test RN TO ASSE SS AND TEACH, J2EE PROGRAMMER/MOBILE SALES ASSISTANT TO OBSERVE AND TEACH FOR SIGNS AND SYMPTOMS OF SEPSIS AND/OR POST-SEPSIS SYNDROME AND INTERVENE TO MINIMIZE COMPLICATIONS. RN/J2EE PROGRAMMER/MOBILE SALES ASSISTANT TO PROVIDE SKILLED TEACHING TO PATIENT/CAREGIVER ON SEPSIS AND SELF-MANAGEMENT TECHNIQUES. RN/J2EE PROGRAMMER/MOBILE SALES ASSISTANT TO MONITOR PATIENT/CAREGIVER ADHERENCE TO MONITOR AND RECORD VITAL SIGNS INCLUDING TEMPERATURE, HEART RATE, RESPIRATIONS, AND SYMPTOMS. RN/J2EE PROGRAMMER/MOBILE SALES ASSISTANT TO PROVIDE FCI TO ACCOMPLISH THE PATIENT S PERSONAL GOAL. [code = RN TO ASSESS AND TEACH, J2EE PROGRAMMER/MOBILE SALES ASSISTANT TO OBSERVE AND TEACH FOR SIGNS AND SYMPTOMS OF SEPSIS AND/OR POST-SEPSIS SYNDROME AND INTERVENE TO MINIMIZE COMPLICATIONS. RN/J2EE PROGRAMMER/MOBILE SALES ASSISTANT TO PROVIDE SKILLED TEACHING TO PATIENT/CAREGIVER ON SEPSIS AND SELF-MANAGEMENT TECHNIQUES. RN/J2EE PROGRAMMER/MOBILE SALES ASSISTANT TO MONITOR PATIENT/CAREGIVER ADHERENCE TO MONITOR AND RECORD VITAL SIGNS INCLUDING TEMPERATURE, HEART RATE, RESPIRATIONS, AND SYMPTOMS. RN/J2EE PROGRAMMER/MOBILE SALES ASSISTANT TO PROVIDE FCI TO ACCOMPLISH THE PATIENT S PERSONAL GOAL.] Future Scheduled Test PHYSICAL T HERAPIST TO EVALUATE FOR STRENGTH AND BALANCE. [code = PHYSICAL THERAPIST TO EVALUATE FOR STRENGTH AND BALANCE.] Future Scheduled Test OCCUPATION AL THERAPIST TO EVALUATE FOR INDEPENDENT AD. L'S. [code = OCCUPATIONAL THERAPIST TO EVALUATE FOR INDEPENDENT AD. L'S.] Future Scheduled Test PRN VISITS ; NUMBER OF RN/J2EE PROGRAMMER/MOBILE SALES ASSISTANT VISITS: 2 RN/J2EE PROGRAMMER/MOBILE SALES ASSISTANT TO PERFORM: RESPIRATORY ASSESSMENT FOR THE FOLLOWING REASONS: EXACERBATION OF RESPIRATORY ASSESSMENT [code = PRN VISITS; NUMBER OF RN/J2EE PROGRAMMER/MOBILE SALES ASSISTANT VISITS: 2 RN/J2EE PROGRAMMER/MOBILE SALES ASSISTANT TO PERFORM: RESPIRATORY ASSESSMENT FOR THE FOLLOWING REASONS: EXACERBATION OF RESPIRATORY ASSESSMENT] Goal 2025-02-21 Patient Goal - BREATH BETTER Goal 2025-03-08 Patient Goal - B REATH BETTER AND GET STRONGER Goal 2025-04-09 Patient Goal - B REATH BETTER AND GET STRONGER Goal Provider Goal - A PLAN OF CARE WILL BE ESTABLISHED THAT MEETS THE PATIENT S NEEDS. PATIENT WILL DEMONSTRATE OXYGEN SATURATION WITHIN NORMAL LIMITS OR PATIENT S OPTIMAL LEVEL ESTABLISHED BY THE PHYSICIAN THROUGHOUT [...] Provider Goal - Goal Provider Goal - Reason for Visit INDEPENDENT WITH USE OF ASSISTIVE DEVICE Encounters Start Date/Time End Date/Time Encounter Type Admission Type Attending [facility] Care Department Encounter ID Discharge Date Discharge Status Discharge Condition Discharge Reason Percent Goals Met 2025-02-09 00:00:00 2025-04-09 00:00:00 Outpatient NEW ADMISSION KAYODE [facility]ON[facility]AL[facility] [id number] 2025-04-09 00:00:00 DISCHARGE TO HOME OR SELF CARE INDEPENDEN T WITH USE OF ASSISTIVE DEVICE HH - NO LONGER REQUIRES SKILLED CARE 43.48
[2025-06-01] VITALS (13 sets, daily range): BP systolic 90–156; BP diastolic 48–127; PULSE 72–121; RESP 18; TEMP 36.5; O2SAT 94–99; BMI 21.1
--- NOTE | 2025-06-01 21:36 | XR_ITS ---
PROCEDURE INFORMATION: Exam: XR Chest Exam date and time: 06/01/2025 10:17 PM Age: 74 years old Clinical indication: Shortness of breath TECHNIQUE: Imaging protocol: Radiologic exam of the chest. Views: 1 view. COMPARISON: CR XR CHEST PORTABLE 03/03/2025 6:25 AM FINDINGS: Tubes, catheters and devices: Right neck surgical clips. Lungs: Prominent interstitial markings with a lower lobe predominance may represent chronic fibrosis. No consolidation. Pleural spaces: Unremarkable. No pleural effusion. No pneumothorax. Heart/Mediastinum: Unremarkable. No cardiomegaly. Vasculature: Aortic calcifications. Bones/joints: Unremarkable. IMPRESSION: No acute findings.
--- NOTE | 2025-06-01 21:43 | HMH.EDGENADL ---
Discharge Plan Disposition Patient Disposition: Home, Self-Care Condition: Good Prescriptions Prescriptions: New prednisone 20 mg tablet 20 mg PO BID 5 Days Qty: 20 0RF azithromycin 250 mg tablet 250 mg PO DAILY 4 Days Qty: 4 0RF Rx Instructions: start on day 2 of therapy No Action cyanocobalamin (vitamin B-12) 1,000 mcg tablet 1,000 mcg PO DAILY meloxicam 15 mg tablet 15 mg PO DAILY montelukast 10 mg tablet 10 mg PO HS Trelegy Ellipta 100-62.5-25 mcg blister with device 1 inh inhalation DAILY 90 Days Qty: 60 3RF ipratropium-albuterol 0.5 mg-3 mg(2.5 mg base)/3 mL solution for nebulization 3 ml inhalation Q6HP PRN (Reason: shortness of breath or wheezing) 30 Days Qty: 180 0RF irbesartan 150 mg tablet 150 mg PO DAILY bupropion HCl 150 mg tablet sustained-release 12 hr 150 mg PO DAILY albuterol sulfate 90 mcg/actuation HFA aerosol inhaler 2 inh inhalation QIDP PRN (Reason: shortness of breath or wheezing) rivastigmine 4.6 mg/24 hour Patch 24 Hour 4.6 mg topical Q48H Rx Instructions: changes every other day due to nausea polyethylene glycol 3350 [HealthyLax] 17 gram Powder In Packet 17 g PO DAILY 30 Days Qty: 30 0RF hydrocodone-acetaminophen 7.5-325 mg tablet 1 tab PO Q8HP PRN (Reason: Mild Pain (Scale Score 1-4)) carvedilol 25 mg tablet 25 mg PO BIDWMEAL buspirone 5 mg Tablet 5 mg PO TID 30 Days Qty: 90 0RF hydroxyzine pamoate 25 mg Capsule 25 mg PO TIDP PRN (Reason: Anxiety) 30 Days Qty: 60 0RF escitalopram oxalate 20 mg Tablet 20 mg PO DAILY 30 Days Qty: 30 0RF furosemide [Lasix] 40 mg tablet 40 mg PO BID Qty: 60 0RF potassium chloride [Klor-Con M20] 20 mEq tablet,ER particles/crystals 20 meq PO DAILY Qty: 30 0RF atorvastatin 40 mg Tablet 40 mg PO HS 30 Days Qty: 30 0RF clopidogrel 75 mg Tablet 75 mg PO DAILY 30 Days Qty: 30 0RF spironolactone 25 mg Tablet 25 mg PO DAILY 30 Days Qty: 30 0RF Jardiance 10 mg Tablet 10 mg PO DAILY 30 Days Qty: 30 0RF Referrals Follow up/Referrals: Guido (ED),MAURA Putnam [Primary Care Provider, Emergency Medicine] - See instructions Activity Restrictions/Add. Instructions Additional Instructions/Restrictions: Take the antibiotics and steroids as prescribed. Use your inhaler every 4 hours for the next two days and then as needed after. Return to the ER for any acute or worsening symptoms. Clinical Impressions Clinical Impression: COPD exacerbation Print Language Print Language: Albanian Discharge ED Provider: Tomeka Santiago General Adult HPI General Chief complaint: Shortness of Breath/Dyspnea Stated complaint: SOA Time Seen by Provider: 06/01/25 21:36 Mode of Arrival: EMS Source of Information: Patient and EMS Description of Symptoms (Recalled from ER Triage Doc. by RN): EMS: EMS states they were called for a 74 YOF C/o SOA, and sickness. States patient RA sat was 88%, patient has COPD. States they administers a duo neb with improvement to 98% on a NC 4LPM. States IV access was attempted but unsuccesful. Patient states she has had a sickness for 3 days now. States the first two days it was N&V, states today she woke up having trouble catching her breath. States the longer the day progressed the worse it got. States her inhalers did not help. History of Present Illness HPI narrative: Patient is a 74-year-old female with a past medical history of COPD who presented to the emergency department with 3 days of shortness of breath. Patient states that her shortness of breath has worsened over the last couple days got acutely worse today which is why she called ambulance. Patient was saturating 88% on room air was placed on oxygen by EMS. Patient was given a DuoNeb and route no other medications were given. Patient states that she has not had any fever. Patient has not had any change in her sputum production. Patient has not had any chest pain. Patient denies any abdominal pain nausea vomiting or diarrhea. Patient denies any recent travel. Patient denies any recent sick contacts. Patient states that she does have an inhaler at home has not had any recent steroids. Patient currently smokes. Related Data Home Medications ?Medication ?Instructions ?Recorded ?Confirmed cyanocobalamin (vitamin B-12) 1,000 mcg PO DAILY 04/02/24 03/31/25 1,000 mcg tablet meloxicam 15 mg tablet 15 mg PO DAILY 01/07/25 03/31/25 montelukast 10 mg tablet 10 mg PO HS 01/07/25 03/31/25 albuterol sulfate 90 mcg/actuation 2 inh inhalation QIDP PRN 02/12/25 03/31/25 aerosol inhaler shortness of breath or wheezing rivastigmine 4.6 mg/24 hour 4.6 mg topical Q48H 02/14/25 03/31/25 transdermal patch carvedilol 25 mg tablet 25 mg PO BIDWMEAL 02/25/25 03/31/25 hydrocodone 7.5 mg-acetaminophen 1 tab PO Q8HP PRN Mild Pain (Scale 02/25/25 03/31/25 325 mg tablet Score 1-4) bupropion HCl 150 mg tablet,12 hr 150 mg PO DAILY 03/31/25 03/31/25 sustained-release irbesartan 150 mg tablet 150 mg PO DAILY 03/31/25 03/31/25 Previous Rx's ?Medication ?Instructions ?Recorded polyethylene glycol 3350 17 gram 17 g PO DAILY 30 days #30 ea 02/14/25 oral powder packet (HealthyLax) fluticasone fur. 100 mcg-umeclid 1 inh inhalation DAILY 90 days #60 02/20/25 62.5 mcg-vilant 25 mcg ea inhalat.powder (Trelegy Ellipta) ipratropium 0.5 mg-albuterol 3 mg 3 ml inhalation Q6HP PRN shortness 02/21/25 (2.5 mg base)/3 mL nebulization of breath or wheezing 30 days #180 soln mL atorvastatin 40 mg tablet 40 mg PO HS 30 days #30 tabs 03/06/25 buspirone 5 mg tablet 5 mg PO TID 30 days #90 tabs 03/06/25 clopidogrel 75 mg tablet 75 mg PO DAILY 30 days #30 tabs 03/06/25 empagliflozin 10 mg tablet 10 mg PO DAILY 30 days #30 tabs 03/06/25 (Jardiance) escitalopram oxalate 20 mg tablet 20 mg PO DAILY 30 days #30 tabs 03/06/25 furosemide 40 mg tablet (Lasix) 40 mg PO BID #60 tabs 03/06/25 hydroxyzine pamoate 25 mg capsule 25 mg PO TIDP PRN Anxiety 30 days 03/06/25 #60 caps potassium chloride 20 mEq 20 meq PO DAILY #30 tabs 03/06/25 tablet,extended release(part/cryst) (Klor-Con M) spironolactone 25 mg tablet 25 mg PO DAILY 30 days #30 tabs 03/06/25 azithromycin 250 mg tablet 250 mg PO DAILY 4 days #4 tabs 06/01/25 prednisone 20 mg tablet 20 mg PO BID 5 days #20 tabs 06/01/25 Allergies Allergy/AdvReac Type Severity Reaction Status Date / Time No Known Allergies Allergy Verified 03/31/25 14:41 [facility] Disclaimer: The information contained in this section may have been updated after the patient was seen, as this information can be updated by other users. Medical History (Updated 06/01/25 @ 23:39 by Tomeka Santiago DO) Vocal cord dysfunction COPD mixed type ENRICO (acute kidney injury) Elevated troponin Hypocalcemia Hypomagnesemia Thyroid lesion Acidosis Chronic bronchitis Acute exacerbation of CHF (congestive heart failure) Acute exacerbation of chronic obstructive pulmonary disease Ex-smoker Pulmonary cachexia due to chronic obstructive pulmonary disease Acute and chronic respiratory failure with hypercapnia Distressed breathing CAP (community acquired pneumonia) Other forms of dyspnea Pulmonary hypertension Hyperlipidemia Hypertension Dyspnea Atypical angina Chronic respiratory failure with hypoxia Encounter for screening for malignant neoplasm of lung Smoking greater than 30 pack years Pulmonary emphysema COPD exacerbation BMI less than 19,adult (HFpEF) heart failure with preserved ejection fraction Tobacco dependence Dependence on supplemental oxygen Coronary artery disease Iron deficiency anemia COPD (chronic obstructive pulmonary disease) Surgical History Hx of esophagogastroduodenoscopy History of colonoscopy History of hysterectomy History of heart artery stent S/P cardiac catheterization Family History Father Alzheimer disease Mother Stroke Social History Smoking Status: Former smoker tobacco type: cigarettes packs per day: 1 pack-years: 50 years smoked: 50 smoking status stop date: 3 years ago alcohol intake: former substance use type: denies use current occupational status: other Travel in the last 8 weeks?: None Have you lived/traveled outside [place] in past 30 days?: No Contact w/someone who lives/traveled outside [place] past 30 days?: No Exposure to someone with infectious disease in past 14 days?: No Do you have a fever (greater than 100.4 F or 38 C)?: No Have you tested positive for COVID-19?: No Exposed to someone with COVID-19 in past 14 days?: No Do you have a sore throat?: No Do you have a cough?: No Do you have any weakness?: No Do you have any diarrhea?: No Are you experiencing any unusual bleeding?: No Do you have any muscle aches/pain?: No Do you have any abdominal pain?: No Are you experiencing loss of taste or smell?: No Other Medical History Have you received the Flu Vaccine for this season: No Have you received the Pneumonia Vaccine: No ROS Obtained: Yes All systems reviewed & no additional complaints except as documented and Yes Systems reviewed as appropriate & no additional complaints except as documented Physical Exam General General appearance: alert and in no apparent distress Head Head exam: atraumatic, normocephalic and normal inspection Eye Eye exam: Present normal appearance, PERRL and EOMI; Absent scleral icterus ENT ENT exam: Present normal exam and normal external ear exam Neck Neck exam: Present normal inspection and full ROM Chest Chest inspection: Present normal inspection and symmetric chest wall rise Respiratory Respiratory exam: Present normal lung sounds bilaterally, respiratory distress and wheezes Cardiovascular Cardiovascular exam: Present regular rate, normal rhythm and normal heart sounds Abdominal Exam Abdominal exam: Present soft and distention; Absent tenderness, guarding or rebound Extremities Exam Extremities exam: Present normal inspection and full ROM Back Exam Back exam: Present normal inspection and full ROM Neurological Exam Neurological exam: Present alert and oriented X3 Psychiatric Psychiatric exam: Present normal affect and normal mood Skin Skin exam: Present warm and dry Medical Decision Making Medical Records Medical records reviewed: Yes I reviewed the patient's medical records. Screening: Per USPSTF and CDC recommendations, given the prevalence of disease in our region, it is our hospital?s policy to screen for HIV and viral Hepatitis for all patients aged 18 and over and those with ongoing risk factors. Vasquez Inquiry Pt receiving controlled substance: No Vital Signs: 06/01/25 21:24 06/01/25 21:31 06/01/25 21:31 Temperature 97.7 F Temperature Source Oral Pulse Rate 97 H Pulse Rate [Left] 95 H Respiratory Rate 18 Blood Pressure 115/52 L Blood Pressure [Right Arm] 90/70 L Blood Pressure Mean 73 Blood Pressure Mean [Right Arm] 76 Blood Pressure Source Blood Pressure Position 02 Sat by Pulse Oximetry 95 95 Oxygen Delivery Method Nasal Cannula Oxygen Flow Rate (LPM) 4 06/01/25 21:32 06/01/25 21:45 06/01/25 22:00 Temperature Temperature Source Pulse Rate 89 96 H Pulse Rate [Left] Respiratory Rate Blood Pressure Blood Pressure [Right Arm] Blood Pressure Mean Blood Pressure Mean [Right Arm] Blood Pressure Source Blood Pressure Position 02 Sat by Pulse Oximetry 98 94 L 99 Oxygen Delivery Method Nasal Cannula Oxygen Flow Rate (LPM) 4 06/01/25 22:00 06/01/25 22:15 06/01/25 22:30 Temperature Temperature Source Pulse Rate 88 Pulse Rate [Left] Respiratory Rate Blood Pressure 144/64 H 156/127 H Blood Pressure [Right Arm] Blood Pressure Mean 90 136 Blood Pressure Mean [Right Arm] Blood Pressure Source Blood Pressure Position 02 Sat by Pulse Oximetry 98 Oxygen Delivery Method Oxygen Flow Rate (LPM) 06/01/25 22:30 06/01/25 22:45 06/01/25 23:00 Temperature Temperature Source Pulse Rate 72 93 H 80 Pulse Rate [Left] Respiratory Rate Blood Pressure Blood Pressure [Right Arm] Blood Pressure Mean Blood Pressure Mean [Right Arm] Blood Pressure Source Blood Pressure Position 02 Sat by Pulse Oximetry 99 98 99 Oxygen Delivery Method Oxygen Flow Rate (LPM) 06/01/25 23:00 06/01/25 23:15 06/01/25 23:30 Temperature Temperature Source Pulse Rate 95 H 77 Pulse Rate [Left] Respiratory Rate Blood Pressure 122/48 L Blood Pressure [Right Arm] Blood Pressure Mean 72 Blood Pressure Mean [Right Arm] Blood Pressure Source Blood Pressure Position 02 Sat by Pulse Oximetry 96 96 Oxygen Delivery Method Oxygen Flow Rate (LPM) 06/01/25 23:32 06/01/25 23:32 06/01/25 23:47 Temperature Temperature Source Pulse Rate 95 H 121 H Pulse Rate [Left] Respiratory Rate Blood Pressure 106/60 L Blood Pressure [Right Arm] Blood Pressure Mean 75 Blood Pressure Mean [Right Arm] Blood Pressure Source Blood Pressure Position 02 Sat by Pulse Oximetry 96 Oxygen Delivery Method Oxygen Flow Rate (LPM) 06/02/25 00:01 Temperature 98.5 F Temperature Source Oral Pulse Rate 95 H Pulse Rate [Left] Respiratory Rate 16 Blood Pressure 106/60 L Blood Pressure [Right Arm] Blood Pressure Mean Blood Pressure Mean [Right Arm] Blood Pressure Source Automatic Cuff Blood Pressure Position Supine 02 Sat by Pulse Oximetry Oxygen Delivery Method Nasal Cannula Oxygen Flow Rate (LPM) 2 Lab Data Lab results reviewed: Yes I reviewed the patient's lab results. Lab Results 06/01/25 21:13: WBC 15.5 H, RBC 4.20, Hgb 11.8 L, Hct 37.0, MCV 88.1, MCH 28.1, MCHC 31.9, RDW 14.6, Plt Count 326, MPV 9.9, Neut % (Auto) 71.2, Lymph % (Auto) 15.3, [place] % (Auto) 10.2 H, Eos % (Auto) 2.6, Baso % (Auto) 0.4, Neut # (Auto) 11.0 H, Lymph # (Auto) 2.4, [place] # (Auto) 1.6 H, Eos # (Auto) 0.4, Baso # (Auto) 0.1, Total Counted 100, Neutrophils % (Manual) 66, Lymphocytes % (Manual) 23, Monocytes % (Manual) 10 H, Eosinophils % (Manual) 1, Platelet Estimate Slight increase, RBC Morphology Normal, D-Dimer 0.65 H, Sodium 135 L, Potassium 5.1, Chloride 98, Carbon Dioxide 28, Anion Gap 14.1, BUN 35 H, Creatinine 2.20 H, Estimated Creat Clear 17, Estimated GFR 22 L, Est GFR ( Amer) 26 L, Glucose 139 H, Calcium 8.6, Total Bilirubin 0.5, AST 19, ALT 12, Alkaline Phosphatase 142 H, Troponin I < 0.01, NT-Pro-B Natriuret Pep 392, Total Protein 7.7 D, Albumin 3.4 L, Globulin 4.3 H, Albumin/Globulin Ratio 0.8 L 06/01/25 22:22: SARS-CoV-2 (PCR) Not detected, Influenza Type A (PCR) Not detected, Influenza Type B (PCR) Not detected, RSV (PCR) Not detected, Rhinovirus (PCR) Detected A 06/01/25 22:39: VBG pH 7.28 L, VBG pCO2 55.0 H, VBG pO2 41.8 H, VBG HCO3 25.1, VBG Total CO2 26.8, VBG O2 Saturation 73.6 H, VBG Base Excess -1.6, VBG Lactic Acid 1.2 06/01/25 21:13 06/01/25 21:13 Orders (Tests/Meds): ED MEDICATIONS Discontinued Medications Generic Name Dose Route Start Last Admin Trade Name Joseq PRN Reason Stop Dose Admin Albuterol/Ipratropium 9 ml 06/01/25 21:36 06/01/25 21:49 Ipratropium/Albuterol 3 Ml Neb IH 06/01/25 21:37 9 ml ONCE ONE Administration Azithromycin 500 mg 06/01/25 23:06 06/01/25 23:18 Azithromycin 250mg Tablet PO 06/01/25 23:07 500 mg ONCE ONE Administration Magnesium Sulfate 2 gm in 50 mls @ 50 mls/hr 06/01/25 21:36 06/01/25 23:16 Magnesium Sulfate 2gm/50ml Premix IV 06/01/25 22:35 Infused ONCE ONE Infusion Iopamidol 70 ml 06/01/25 23:00 06/01/25 23:01 Iopamidol-370 (76%);100ml Bottle IV 06/01/25 23:01 70 ml ONCE ONE Administration Methylprednisolone Sodium Succinate 125 mg 06/01/25 21:36 06/01/25 21:49 Methylprednisolone Sod Succ 125mg Vial IV 06/01/25 21:37 125 mg ONCE ONE Administration Sodium Chloride 40 ml 06/01/25 23:00 06/01/25 23:01 0.9 % Sodium Chloride 50 Ml Vial IV 06/01/25 23:01 40 ml ONCE ONE Administration Sodium Chloride 10 ml 06/01/25 23:00 06/01/25 23:01 Sodium Chloride 0.9% 10ml Syr (Rad Only) IV 07/01/25 22:59 10 ml NEEDED PRN Administration Maintain IV Site ORDERS Category Date Time Status CT angio chest PE protocol Stat Cat Scan 06/01/25 22:30 Completed CXR --portable [XR chest portable] Stat Exams 06/01/25 21:36 Completed BNP [NT Pro Brain Natriuretic Pep.] Stat Lab 06/01/25 21:13 Completed CBC w/Auto Diff [Complete Blood Count Auto Diff] Stat Lab 06/01/25 21:13 Completed CMP [Comprehensive Metabolic Panel] Stat Lab 06/01/25 21:13 Completed D-Dimer Stat Lab 06/01/25 21:13 Completed Mini Respiratory Panel Stat Lab 06/01/25 22:22 Completed Trop I [Troponin I] Stat Lab 06/01/25 21:13 Completed VBG [Venous Blood Gas] Stat RT 06/01/25 22:39 Completed Medical Decision Narrative: Patient is a 74-year-old female with a past medical history of COPD who presented to the emergency department with shortness of breath for the last 3 days. On arrival, patient was hemodynamically stable with unremarkable vital signs. Differential includes but not limited to: ACS/AZ, COPD exacerbation, pneumonia, viral syndrome, amongst others. Patient's labs were reviewed and interpreted by myself: CBC showed mild leukocytosis, hemoglobin was stable. CMP was unremarkable. D-dimer was elevated at 0.65. VBG showed no significant acidosis no elevated lactate. Troponin was less than 0.01. Chest x-ray was reviewed and interpreted by myself and showed no acute for consolidation, pneumothorax, pleural effusion or other acute cardiopulmonary process CT PE was reviewed and interpreted by myself and showed no acute pulmonary embolism or other acute pathology, patient had a thyroid nodule patient was recommended to follow-up outpatient for this. Patient was treated in the emergency department symptomatically with DuoNebs steroids and given azithromycin. Was weaned off of her oxygen and patient felt significantly improved. At this time I felt the patient was appropriate and stable for discharge home. Patient was sent with steroid as well as Azithromycin. Critical Care Critical Care Time Critical Care Time: No
[2025-06-01] MEDS: IPRATROPIUM/ALBUTEROL 3 ML NEB 9 ML IH (21:49)
[2025-06-01] MEDS: MAGNESIUM SULFATE IN WATER 2 GM/50 ML PIGGYBACK IV (21:49)
[2025-06-01] MEDS: METHYLPREDNISOLONE SOD SUCC 125MG VIAL 125 MG IV (21:49)
[2025-06-01 21:50] LABS: Alanine Aminotransferase 12 U/L (12-78); Albumin Level 3.4 g/dl (3.5-5.0); Albumin/Globulin Ratio 0.8 (1.1-1.8); Alkaline Phosphatase 142 U/L (38-126); Anion Gap 14.1 mEq/L (5-15); Aspartate Amino Transferase 19 U/L (14-36); Bilirubin,Total 0.5 mg/dl (0.2-1.3); Blood Urea Nitrogen 35 mg/dl (7-17); Calcium 8.6 mg/dl (8.4-10.2); Carbon Dioxide 28 mmol/L (22.0-30.0); Chloride 98 mmol/L (98-107); Creatinine Clearance Estimated 17 mL/min (50-200); Creatinine,Serum 2.20 mg/dl (0.52-1.04); Estimated Glomerular Filt Rate 22 ml/min (>60); GFR (African American) 26 ML/MIN (>60); Globulin 4.3 g/dL (1.3-3.2); Glucose 139 mg/dl (74-100); Potassium 5.1 mmoL/L (3.5-5.1); Sodium 135 mmol/L (136-145); Total Protein,Serum 7.7 g/dl (6.3-8.2)
[2025-06-01 21:55] LABS: D-Dimer 0.65 ug/mL (0.0-0.5)
[2025-06-01 22:06] LABS: Troponin I < 0.01 ng/ml (0.00-0.034)
[2025-06-01 22:16] LABS: Hematocrit 37.0 % (37.0-47.0); Hemoglobin 11.8 g/dL (12.2-16.2); Immature Granulocytes % 0.3 %; Mean Corpuscular HGB Conc 31.9 g/dL (31.8-35.4); Mean Corpuscular Hemoglobin 28.1 pg (27.0-31.2); Mean Corpuscular Volume 88.1 fl (81-99); Nucleated Red Blood Cells % 0 %; Platelet Count 326 K/mm3 (142-424); Red Blood Count 4.20 M/mm3 (4.20-5.40); Red Cell Distribution Width-SD 45.5 fL; White Blood Count 15.5 K/mm3 (4.8-10.8)
--- NOTE | 2025-06-01 22:24 | PC.NURSE ---
Mini Respiratory Panel sent
[2025-06-01 22:27] LABS: Coronavirus 19, PCR Not Detected (NotDetected); Influenza A, PCR Not Detected (NotDetected); Influenza B, PCR Not Detected (NotDetected)
--- NOTE | 2025-06-01 22:30 | CT_ITS ---
PROCEDURE INFORMATION: Exam: CTA Chest With Contrast Exam date and time: 06/01/2025 10:43 PM Age: 74 years old Clinical indication: Abnormal findings; Abnormal diagnostic tests; Elevated d-dimer TECHNIQUE: Imaging protocol: Computed tomographic angiography of the chest with contrast. Exam focused on the arteries. 3D rendering (Not supervised by radiologist): MIP and/or 3D reconstructed images were created by the technologist. Radiation optimization: All CT scans at this facility use at least one of these dose optimization techniques: automated exposure control; mA and/or kV adjustment per patient size (includes targeted exams where dose is matched to clinical indication); or iterative reconstruction. Contrast material: ISOUVE 370; Contrast volume: 70 ml; Contrast route: INTRAVENOUS (IV); COMPARISON: CT ANGIO CHEST PE PROTOCOL 02/02/2025 10:33 AM FINDINGS: Pulmonary arteries: No pulmonary embolus. Aorta: Moderate atherosclerotic changes of the aorta and its major branches. Thyroid: 2 x 1.3 cm hypodense right thyroid lobe nodule. Lungs: Centrilobular emphysema. No consolidation. Pleural spaces: Unremarkable. No pneumothorax. No pleural effusion. Heart: Unremarkable. No cardiomegaly. No pericardial effusion. Coronary arteries: Mild-moderate coronary artery calcifications. Lymph nodes: Unremarkable. No enlarged lymph nodes. Bones/joints: Unremarkable. No acute fracture. Soft tissues: Unremarkable. IMPRESSION: 1. No pulmonary embolus. 2. Hypodense right thyroid lobe nodule. Recommend further evaluation with thyroid ultrasound if not previously performed. COMMENTS: 1. Consistent with the [employer]'s Incidental Findings Committee white paper (J Am Chavez Radiol 2015): In patients aged 35 years and older with an incidental thyroid nodule equal to or greater than 1.[address], MRI or extrathyroidal US, further evaluation with dedicated thyroid US is recommended for patients with normal life expectancy and without comorbidities. For smaller nodules without suspicious features, no further evaluation or follow up is recommended. 2. The presence of pulmonary emphysema on CT is an independent risk factor for lung cancer. In the absence of a history or active diagnosis of lung cancer, it is recommended that this patient with emphysema be evaluated for enrollment in a low dose CT lung cancer screening program.
[2025-06-01 22:50] LABS: RBC Morphology Normal; Total Cells Counted 100
[2025-06-01 22:51] LABS: Lactate Venous 1.2 mmol/L (0.4-2.0); VBG HCO3 25.1 mmol/L (23-30); VBG PH 7.28 mmol/L (7.31-7.41); VBG PO2 41.8 mmol/L (28-40)
[2025-06-01 22:55] LABS: VBG PCO2 55.0 mmol/L (35-51)
--- NOTE | 2025-06-01 22:55 | PC.NURSE ---
Per the lab. PH 7.28 CO 55
[2025-06-01] MEDS: 0.9 % SODIUM CHLORIDE 50 ML VIAL 40 ML IV (23:01)
[2025-06-01] MEDS: SODIUM CHLORIDE 0.9% 10ML SYR (RAD ONLY) 10 ML IV (23:01)
[2025-06-01] MEDS: IOPAMIDOL-370 (76%);100ML BOTTLE 70 ML IV (23:01)
[2025-06-01 23:15] LABS: NT Pro Brain Natriuretic Pep. 392 pg/mL (0-450)
[2025-06-01] MEDS: AZITHROMYCIN 250MG TABLET 500 MG PO (23:18)
[2025-06-02 00:01] VITALS: BP 106/60; PULSE 95; RESP 16; TEMP 36.9; O2SAT 96
== END 2025-06-02 00:02 | disposition home or self-care (01) ==
PROVIDERS: Emergency Provider Student in an Organized Health Care Education/Training Program; PCP Nurse Practitioner
DX: J44.1 Chronic obstructive pulmonary disease with (acute) exacerbation (principal); B34.8 Other viral infections of unspecified site; F17.210 Nicotine dependence, cigarettes, uncomplicated; I11.0 Hypertensive heart disease with heart failure; I50.33 Acute on chronic diastolic (congestive) heart failure; E78.5 Hyperlipidemia, unspecified; Z86.79 Personal history of other diseases of the circulatory system; Z95.5 Presence of coronary angioplasty implant and graft; Z99.81 Dependence on supplemental oxygen
CPT/HCPCS: 71045; 71275; 80053; 82803; 83880; 84484; 85007; 85025; 85378; 87631; 96365; 96375; 99285; J2919; J3475; Q9967

== ENCOUNTER 2025-07-25 17:21 | Inpatient (IN) | payer MEDICARE, SELFPAY ==
--- OUTSIDE RECORDS SUMMARY | 2013-01-21 04:32 | XMS_ITS | Continuity of Care Document ---
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 Name Role Phone Gao ALEXSANDER April Unavailable Unavailable Allergies, Adverse Reactions, Alerts Substance Reaction Status Criticality No Known allergies Medications Medication Instructions Dosage Effective Dates (start - stop) Status Comments lisinopril 20 mg tablet take 1 tablet (20MG) by oral route every day 20 MG - Active Zoloft 100 mg Tab take 1 tablet (100MG) by oral route every day 100 MG - Active blood pressure monitor Kit test daily - Active methocarbamol 750 mg tablet take 1 tablet (750MG) by oral route every 8 hours 750 MG - Active Percocet 5 mg-325 mg tablet take 1 tablet by oral route every 12 hours as needed 1 tablet - Active lisinopril 20 mg tablet take 1 tablet (20MG) by oral route every day 20 MG - No Longer Active Zoloft 100 mg Tab take 1 tablet (100MG) by oral route every day 100 MG - No Longer Active Procedures Procedure Date OFFICE VISIT/EST LEVEL III FU FULL MAX DENTURE FU FULL MAN DTR FU FULL MAX DENTURE FU FULL MAN DTR OFFICE VISIT-OBS.REG HR N/C FU FULL MAX DENTURE FU FULL MAN DTR COMPLETE DENTURE-MAXILLARY COMPLETE DENTURE-MANDIBULAR Alveoloplasty W/O Ext-4+ Teeth/Spaces Pe r Quad EXMPT COMPR ORAL EVAL:NEW/EST PANORAMIC FILM Health History Update OFFICE VISIT/EST LEVEL III OFFICE VISIT/EST LEVEL III OFFICE VISIT/EST LEVEL III OFFICE VISIT/NEW LEVEL III VULVECTOMY/PARTIAL OFFICE VISIT/EST LEVEL III BIOPSY/ VULVA,SEPERATE-OFFICE 2 HISTOPATH (1 SPECIMEN) Advance Directives Directive Yes / No Effective Date File Name No Information Encounters Encounter Description Practice Location Reason(s) For Visit Diagnoses Date Provider Providers Copied on Encounter [facility], [address] [place] [address], [id number], tel:[phone] [facility] No Information 3 Gao [facility] April. [address] [place], [address], [place]. tel:[phone] OFFICE VISIT/EST LEVEL III [address], [id number], [place] tel:[phone] [facility] hypertension (follow up) (chief complaint) Hypertension 3 Animated Speech PAC April. [address] [place], [address], [place]. tel:[phone], [id number], [place] tel:[phone] [facility] No Information 3 No Information [facility], [address] [place] [address], [id number], [place] tel:[phone] [facility] No Information 3 No Information [address], [id number], [place] tel:[phone] [facility] No Information 3 No Information [facility], [address], [place], [place], [id number], [place] tel:[phone] [facility] No Information 3 No Information [facility], [address], [place], [place], [id number], [place] tel:[phone] [facility] No Information 3 No Information [facility], [address], [place], [place], [id number], [place] tel:[phone] [facility] No Information 3 No Information [facility], [address], [place], [place], [id number], [place] tel:[phone] [facility] No Information 2 No Information OFFICE VISIT/EST LEVEL III [facility], [address] [place] [address] Road [address], [place], [place], [id number], [place] tel:[phone] [facility] Hypertension (chief complaint)Dep ression (chief complaint) Hypertension, UnspecifiedDe pressionNonto xic uninodular goiter 2 Gao [facility] April. [address] [place], [address], [place]. tel:[phone] [facility], [address] [place] [address] [address], [place], [place], [id number], [place] tel:[phone] [facility] Nontoxic uninodular goiter 2 Gao [facility] April. [address] [place], [address], [place]. tel:[phone] OFFICE VISIT/EST LEVEL III [facility], [address] [place] [address] Road [address], [place], [place], [id number], [place] tel:[phone] [facility] hypertension (chief complaint)dep ression (chief complaint) Unspecified essential hypertensionD epression 2 Gao PAC April. [address] [place], [address], [place]. tel:[phone] OFFICE VISIT/EST LEVEL III [facility], [address] [facility] [address], [place], [id number], tel:[phone] [facility] Depression (chief complaint)Nec k Pain (chief complaint)Janie k Pain (chief complaint)Hyp ertension (chief complaint) DepressionUns pecified essential hypertensionD epressionUnsp ecified essential hypertensionC ervical spondylosis without myelopathyOst eoarthrosis, unspecified whether generalized or localized, involving unspecified site 2 Gao PAC April. [address] [place], [place], [facility], [place]. tel:[phone] [facility], [address] [facility] [address], [place], [id number], tel:[phone] [facility] To get established (chief complaint)dep ression (chief complaint)chr onic neck pain (chief complaint)chr onic back pain (chief complaint) DepressionUns pecified essential hypertensionC ervicalgiaBac kache 2 Gao PAC April. [address] [place], [place], [facility], [place]. tel:[phone] OFFICE VISIT/NEW LEVEL III [facility], [address] [facility] [address], [place], [place], [id number], tel:[phone] [facility] No Information 2 Gao PAC April. [address] [place], [place], [facility], [place]. tel:[phone] [facility], [address] [facility] [address], [place], [place], [id number], [place] tel:[phone] [facility] No Information 2 Anthony Thomas. [address] [place] [address] Dr, [address], [place], [place], [id number], [place]. tel:[phone] OFFICE VISIT/EST LEVEL III [facility], [address], [place], [place], [id number], [place] tel:[phone] [facility] F/U on Vulvar Bx (chief complaint) No Information 2 Anthony Thomas. [address], [place], [place], [id number], [place]. tel:[phone] [facility], [address], [place], [place], [id number], [place] tel:[phone] [facility] Soreness of vaginal lip (chief complaint) No Information 2 Anthony Thomas. [address], [place], [place], [id number], [place]. tel:[phone] Family History Family Member Type Diagnosis Age At Onset Problem (finding) Family history of Heart disease Problem (finding) Family history of Diabe pennie mellitus Payers Payer name Insurance type Covered green party ID Authoriza tilita(s) [facility] [id number] Social History Type Description Quantity Date Captured Comments Sex Female Smoking Status No Information Chief Complaint And Reason For Visit No Information Reason For Referral Reason For Referral No Information Plan Of Treatment Date Type Action Status Referral Ordered: US EXAM OF THYROID ordered Referral Referred To: Chris Medley MD [address] [place], [phone] Ordered: Referral: Chris Medley MD. Pain Management. Evaluate and treat. ordered History Of Present Illness Encounter Date Complaint History Of Prese nt Illness No Information Functional Status Date Functional Assessmen t No Information Instructions Date Instruction Additional Infor mation Walk 10,000 steps a day Related to Hypertension BP less than 140-90 Related to H ypertension Dietary counseling provided Rela thaddeus to Hypertension, Unspecified Take medication(s) as prescribed Related to Depression Continue current medication Assessments Type Assessment Date No Information Patient Care Teams Name Effective Dates (start - stop) Status Members No Information
[2025-07-25 17:27] VITALS: BP 107/85; PULSE 90; RESP 20; TEMP 37; O2SAT 100; BMI 19.8
--- NOTE | 2025-07-25 17:27 | ED_ITS ---
<Statement entered by Sterling Sim MD - 07/25/25 23:03> Sterling Sim MD: I was consulted by the PETRA, and we discussed the complexity of the problems being addressed. I approve the treatment and management plan for this patient's care in the emergency department, thus performing a substantive portion of the medical decision making. Discharge Plan Disposition Patient Disposition: Admitted Condition: Fair Clinical Impressions Clinical Impression: COPD exacerbation, Nausea & vomiting, Near syncope, Positional lightheadedness, Stenosis of left internal carotid artery Discharge ED Provider: Sterling Sim HPI <TESHA Borges - Last Filed: 07/25/25 22:17> General Chief Complaint: Shortness of Breath/Dyspnea Stated Complaint: SOA Time Seen by Provider: 07/25/25 17:23 Mode of Arrival: EMS Source of Information: Patient, Relative, EMS and Medical Record History of Present Illness HPI narrative: 75-year-old female presents to the emergency department via EMS for shortness of breath that is worse over the last 3 to 4 days, patient is on baseline 2 to 2.5 L nasal cannula, was found to be at 5 L nasal cannula with good oxygen saturation at home, with accessory muscle use per EMS, thus was placed on nonrebreather at 10 L nasal cannula was given 3 mL DuoNeb and 125 mg IV methylprednisone and route per EMS, which did help her symptomatology. Patient admits to subjective fever and chills over the last few days, productive cough, denies any chest pain, does admit to shortness of breath, has had episodes of nausea vomiting and presyncope/lightheadedness, no vertiginous type symptomatology, no abdominal pain no constipation no diarrhea, no hematuria melena hematochezia hematemesis or hemoptysis, denies any urinary symptomatology, patient is a former smoker, denies any alcohol or other drug use, other past medical history is consistent with COPD, ABENA, mood disorder, iron deficiency anemia, hyperlipidemia, hypertension, HFpEF, CAD status post 2 stent placements. Initial triage vitals unremarkable on 2-3 L nasal cannula which is around patient's baseline. Please note that above description of symptoms, in this electronic medical record under categorization of recalled from ER triage doctor by RN are reflective of an initial nursing assessment, however, is not reflective of my full history and physical exam that was personally taken and clarified. Consequentially, this preceding description of symptoms, which may include the patient's categorized chief complaint in the EMR, do not reflect my personal clinical impression, and the ultimate description of history of present illness and patient stated complaints should be deferred to this section of the note. Unless stated otherwise or congruent with this section of the note, additional signs, symptoms, or incongruence should be interpreted as inaccurate with my clinical impression. Onset (ago): day(s) Related Data Home Medications ?Medication ?Instructions ?Recorded ?Confirmed cyanocobalamin (vitamin B-12) 1,000 mcg PO DAILY 04/0203/31/25 1,000 mcg tablet meloxicam 15 mg tablet 15 mg PO DAILY 01/07/2503/08 montelukast 10 mg tablet 10 mg PO HS 01/07/25 5 albuterol sulfate 90 mcg/actuation 2 inh inhalation QI DP PRN 02/12/25 03/31/25 aerosol inhaler shortness of breath or wheez ing rivastigmine 4.6 mg/24 hour 4.6 mg topical Q48H 03/31/25 transdermal patch carvedilol 25 mg tablet 25 mg PO BIDWMEAL 02/25/25 0 03/31/25 hydrocodone 7.5 mg-acetaminophen 1 tab PO Q8HP PRN Mil d Pain (Scale 02/25/25 03/31/25 325 mg tablet Score 1-4) bupropion HCl 150 mg tablet,12 hr 150 mg PO DAILY 03/0803/31/25 sustained-release irbesartan 150 mg tablet 150 mg PO DAILY 03/31/25 Previous Rx's ?Medication ?Instructions ?Recorded polyethylene glycol 3350 17 gram 17 g PO DAILY 30 days #30 ea 02/14/25 oral powder packet (HealthyLax) fluticasone fur. 100 mcg-umeclid 1 inh inhalation LINDSAY Y 90 days #60 02/20/25 62.5 mcg-vilant 25 mcg ea inhalat.powder (Trelegy Ellipta) ipratropium 0.5 mg-albuterol 3 mg 3 ml inhalation Q6HP PRN shortness 02/21/25 (2.5 mg base)/3 mL nebulization of breath or wheezing 30 days #180 soln mL atorvastatin 40 mg tablet 40 mg PO HS 30 days #30 tabs 03/06/25 buspirone 5 mg tablet 5 mg PO TID 30 days #90 tabs 03/06/25 clopidogrel 75 mg tablet 75 mg PO DAILY 30 days #30 t abs 03/06/25 empagliflozin 10 mg tablet 10 mg PO DAILY 30 days #30 tabs 03/06/25 (Jardiance) escitalopram oxalate 20 mg tablet 20 mg PO DAILY 30 da ys #30 tabs 03/06/25 furosemide 40 mg tablet (Lasix) 40 mg PO BID #60 tabs 03/06/25 hydroxyzine pamoate 25 mg capsule 25 mg PO TIDP PRN An xiety 30 days 03/06/25 #60 caps potassium chloride 20 mEq 20 meq PO DAILY #30 tabs tablet,extended release(part/cryst) (Klor-Con M) spironolactone 25 mg tablet 25 mg PO DAILY 30 days #30 tabs 03/06/25 azithromycin 250 mg tablet 250 mg PO DAILY 4 days #4 t abs 06/01/25 prednisone 20 mg tablet 20 mg PO BID 5 days #20 tabs 06/01/25 Allergies Allergy/AdvReac Type Severity Reaction Status Date / Time No Known Allergies Allergy Verified 03/31/25 14:41 [facility] <TESHA Borges - Last Filed: 07/25/25 22:17> [facility] Disclaimer: The information contained in this section may have been updated after the patient was seen, as this information can be updated by other users. Medical History (Updated 07/25/25 @ 21:19 by TESHA Borges) Vocal cord dysfunction COPD mixed type ENRICO (acute kidney injury) Elevated troponin Hypocalcemia Hypomagnesemia Thyroid lesion Acidosis Chronic bronchitis Acute exacerbation of CHF (congestive heart failure) Acute exacerbation of chronic obstructive pulmonary disease Ex-smoker Pulmonary cachexia due to chronic obstructive pulmonary disease Acute and chronic respiratory failure with hypercapnia Distressed breathing CAP (community acquired pneumonia) Other forms of dyspnea Pulmonary hypertension Hyperlipidemia Hypertension Dyspnea Atypical angina Chronic respiratory failure with hypoxia Encounter for screening for malignant neoplasm of lung Smoking greater than 30 pack years Pulmonary emphysema COPD exacerbation BMI less than 19,adult (HFpEF) heart failure with preserved ejection fraction Tobacco dependence Dependence on supplemental oxygen Coronary artery disease Iron deficiency anemia COPD (chronic obstructive pulmonary disease) Surgical History Hx of esophagogastroduodenoscopy History of colonoscopy History of hysterectomy History of heart artery stent S/P cardiac catheterization Family History Father Alzheimer disease Mother Stroke Social History Smoking Status: Former smoker tobacco type: cigarettes packs per day: 1 pack- years: 50 years smoked: 50 smoking status stop date: 3 years ago alcohol intake: former substance use type: denies use current occupational status: other Travel in the last 8 weeks?: None Have you lived/traveled outside [place] in past 30 days?: No Contact w/someone who lives/traveled outside [place] past 30 days?: No Exposure to someone with infectious disease in past 14 days?: No Do you have a fever (greater than 100.4 F or 38 C)?: No Have you tested positive for COVID-19?: No Exposed to someone with COVID-19 in past 14 days?: No Do you have a sore throat?: No Do you have a cough?: No Do you have any weakness?: No Do you have any diarrhea?: No Are you experiencing any unusual bleeding?: No Do you have any muscle aches/pain?: No Do you have any abdominal pain?: No Are you experiencing loss of taste or smell?: No Other Medical History Have you received the Flu Vaccine for this season: No Have you received the Pneumonia Vaccine: No <TESHA Borges - Last Filed: 07/25/25 22:17> ROS Obtained: Yes All systems reviewed & no additional complaints except as documented Physical Exam <TESHA Borges - Last Filed: 07/25/25 22:17> General General appearance: alert, in no apparent distress and cachectic Comment: Cachectic appearing female Head Head exam: atraumatic and normocephalic Eye Eye exam: Present PERRL and EOMI ENT ENT exam: Present mucous membranes moist Neck Neck exam: Present normal inspection Chest Chest inspection: Present normal inspection and symmetric chest wall rise Respiratory Respiratory exam: Present normal lung sounds bilaterally, wheezes and other (Mild wheezes noted throughout bilateral lung curiel, poor inspiratory and expiratory phase, some mild conversational dyspnea noted); Absent respiratory distress Cardiovascular Cardiovascular exam: Present regular rate and normal rhythm Abdominal Exam Abdominal exam: Present soft; Absent tenderness, guarding, rebound or rigidity Extremities Exam Extremities exam: Present normal inspection Neurological Exam Neurological exam: Present alert and oriented X3 Psychiatric Psychiatric exam: Present normal affect Skin Skin exam: Present warm and dry HEART Score <TESHA Borges - Last Filed: 07/25/25 22:17> HEART Score HEART Score assessment performed?: Yes HEART Score: 3 Procedures <Sterling Sim MD - Last Filed: 07/25/25 20:32> Limited Ultrasound Indication:: Limited RUQ ultrasound Indication: Elevated lipase, gallbladder sludge appreciated on CT imaging Identified structures: -Gallbladder -Gallbladder wall -Common bile duct -Liver Findings: Sonographic Walton sign: Absent Gallstones: Absent Sludge: Absent Pericholecystic fluid: Absent Maximal GB wall thickness (mm): Normal is </= 3mm Normal Common bile duct width (mm): Normal is </= 6mm Normal Gallbladder width (cm): Normal is < 4cm Normal Gallbladder length (cm): Normal is < 10cm Normal Impression: -Normal gallbladder -Biliary sludge without evidence of cholelithiasis or acute cholecystitis. No evidence of choledocholithiasis Images were saved to permanent archive The study was technically adequate CPT 68645-98 This study was performed by me, Sterling Sim MD, and I personally interpreted all images/videos. Based on my clinical judgement, these images were adequate and did not necessitate further imaging. Critical Care <TESHA Borges - Last Filed: 07/25/25 22:17> Critical Care Time Critical Care Time: No Medical Decision Making <TESHA Borges - Last Filed: 07/25/25 22:17> Medical Records Medical records reviewed: Yes I reviewed the patient's medical records. Vasquez Inquiry Pt receiving controlled substance: No Vasquez was queried for this patient: No Vital Signs Vital Signs: 07/25/25 17:27 07/25/25 17:27 07/25/25 17:30 Temperature 98.6 F 98.6 F Temperature Source Oral Pulse Rate 90 98 H Pulse Rate [Right] 90 Respiratory Rate 20 20 19 Blood Pressure 107/85 L 137/91 H Blood Pressure [Right Arm] 107/85 L Blood Pressure Mean [Right Arm] 92 02 Sat by Pulse Oximetry 100 100 95 Oxygen Delivery Method Room Air Nasal Cannula Oxygen Flow Rate (LPM) 2 2 07/25/25 17:33 07/25/25 18:00 Temperature Temperature Source Pulse Rate 78 Pulse Rate [Right] Respiratory Rate 18 Blood Pressure 119/90 Blood Pressure [Right Arm] Blood Pressure Mean [Right Arm] 02 Sat by Pulse Oximetry 100 95 Oxygen Delivery Method Nasal Cannula Oxygen Flow Rate (LPM) 2 Lab Data Lab results reviewed: Yes I reviewed the patient's lab results. Labs: Lab Results 07/25/25 17:10: WBC 9.9, RBC 3.92 L, Hgb 11.2 L, Hct 35.6 L, MCV 90.8, MCH 28.6, MCHC 31.5 L, RDW 14.5, Plt Count 341, MPV 9.9, Neut % (Auto) 58.2, Lymph % (Auto) 27.1, [place] % (Auto) 9.7 H, Eos % (Auto) 4.1, Baso % (Auto) 0.6, Neut # (Auto) 5.7, Lymph # (Auto) 2.7, [place] # (Auto) 1.0, Eos # (Auto) 0.4, Baso # (Auto) 0.1, PT 13.5 H, INR 1.24 H, Sodium 142, Potassium 4.7, Chloride 110 H, Carbon Dioxide 23, Anion Gap 13.7, BUN 34 H, Creatinine 1.80 H, Estimated Creat Clear 20, Estimated GFR 27 L, Est GFR ( Amer) 33 L, Glucose 118 H, Calcium 9.6, Magnesium 1.7, Total Bilirubin 0.4, AST 26, ALT 14, Alkaline Phosphatase 112, Troponin I < 0.01, NT-Pro-B Natriuret Pep 1750 H, Total Protein 6.8, Albumin 4.0, Globulin 2.8, Albumin/Globulin Ratio 1.4, Lipase 972 H 07/25/25 17:50: VBG pH 7.24 L, VBG pCO2 49.6, VBG pO2 25.2 L, VBG HCO3 20.6 L, V BG Total CO2 22.1 L, VBG O2 Saturation 44.9 L, VBG Base Excess -6.9 L, VBG Lactic Acid 1.7, Chlamy pneumoniae PCR Not detected, Adenovirus (PCR) Not detected, B. pertussis DNA (PCR) Not detected, Coronavirus OC43 (PCR) Not detected, Coronavirus HKU1 (PCR) Not detected, Coronavirus 229E (PCR) Not detected, SARS-CoV-2 (PCR) Not detected, Coronavirus NL63 (PCR) Not detected, Human Metapneumovir PCR Not detected, Influenza A (H1) PCR Not detected, Influ A (H1N1/09) PCR Not detected, Influenza A (H3) PCR Not detected, Influenza Type A (PCR) Not detected, Influenza Type B (PCR) Not detected, M. pneumoniae (PCR) Not detected, Parainfluenza 1 (PCR) Not detected, Parainfluenza 2 (PCR) Not detected, Parainfluenza 3 (PCR) Not detected, Parainfluenza 4 (PCR) Not detected, RSV (PCR) Not detected, Entero/Rhino (PCR) Detected A 07/25/25 20:59: Troponin I < 0.01 07/25/25 17:10 07/25/25 17:10 Response Orders (Tests/Meds): ED MEDICATIONS Generic Name Dose Route Start Last Admin Trade Name Freq PRN Reason Stop Dose Admin Azithromycin 500 mg/ Sodium 250 mls @ 250 mls/hr 07/25/25 21:15 07/25/25 21:29 Chloride IV 07/25/25 21:16 250 mls/hr ONCE ONE Administration Sodium Chloride 10 ml 07/25/25 20:10 07/25/25 20:11 Sodium Chloride 0.9% 10ml Syr (Rad Only) IV 08/24/25 20:09 10 ml NEEDED PRN Administration Maintain IV Site Discontinued Medications Generic Name Dose Route Start Last Admin Trade Name Freq PRN Reason Stop Dose Admin Albuterol/Ipratropium 3 ml 07/25/25 17:36 07/25/25 18:01 Ipratropium/Albuterol 3 Ml Neb IH 07/25/25 17:37 3 ml ONCE ONE Administration Sodium Chloride 1,000 mls @ 999 mls/hr 07/25/25 18:18 07/25/25 20:29 Sod Chlor 0.9% 1000ml Bag IV 07/25/25 19:18 Infused .Q1H1M ONE Infusion Iopamidol 70 ml 07/25/25 18:35 07/25/25 18:37 Iopamidol-370 (76%);100ml Bottle IV 07/25/25 18:36 70 ml ONCE ONE Administration Iopamidol 70 ml 07/25/25 20:10 07/25/25 20:11 Iopamidol-370 (76%);100ml Bottle IV 07/25/25 20:11 70 ml ONCE ONE Administration Ondansetron HCl 4 mg 07/25/25 19:10 07/25/25 19:23 Ondansetron 4mg/2ml Vial IV 07/25/25 19:11 4 mg ONCE ONE Administration Sodium Chloride 10 ml 07/25/25 18:35 07/25/25 18:37 Sodium Chloride 0.9% 10ml Syr (Rad Only) IV 07/25/25 18:36 10 ml ONCE ONE Administration Sodium Chloride 50 ml 07/25/25 18:35 07/25/25 18:36 0.9 % Sodium Chloride 50 Ml Vial IV 07/25/25 18:36 50 ml ONCE ONE Administration Sodium Chloride 50 ml 07/25/25 20:10 07/25/25 20:11 0.9 % Sodium Chloride 50 Ml Vial IV 07/25/25 20:11 50 ml ONCE ONE Administration ORDERS Category Date Time Status CT abdomen pelvis w con Stat Cat Scan 07/25/25 18:[address] angio chest PE protocol Stat Cat Scan 07/25/25 18:[address] angio head Stat Cat Scan 07/25/25 19:[address] angio neck Stat Cat Scan 07/25/25 19:[address] head/brain wo con Stat Cat Scan 07/25/25 19:45 Completed POCUS Point of Care (ER Only) Stat Exams 07/25/25 19:43 Completed XR chest portable Stat Exams 07/25/25 17:35 Completed Complete Blood Count Auto Diff AMLAB Lab 07/26/25 06:00 Ordered Complete Blood Count Auto Diff Stat Lab 07/25/25 17:10 Completed Comprehensive Metabolic Panel AMLAB Lab 07/26/25 06:00 Ordered Comprehensive Metabolic Panel Stat Lab 07/25/25 17:10 Completed Full Resp Panel w/COVID ([facility]) Routine Lab 07/25/25 17:50 Completed Lipase Stat Lab 07/25/25 17:10 Completed Magnesium Stat Lab 07/25/25 17:10 Completed NT Pro Brain Natriuretic Pep. Stat Lab 07/25/25 17:10 Completed PT INR [Prothrombin Time INR] Stat Lab 07/25/25 17:10 Completed Troponin I Q3H Lab 07/25/25 20:59 Completed Troponin I Stat Lab 07/25/25 17:10 Completed VBG [Venous Blood Gas] Stat RT 07/25/25 17:50 Completed MDM Narrative Medical Decision Narrative: 75-year-old female presents emergency department via EMS for shortness of breath productive cough for the last 2 to 3 days, differential diagnose include but not limited to acute on chronic hypoxic respiratory failure, COPD exacerbation, CHF exacerbation, pleural effusion, PE, pulmonary edema, ACS, cardiac arrhythmia, pneumonia, electrolyte disturbance, acute bronchitis among others. I discussed this patient's case with the attending physician he saw and examined the patient as well. Will obtain basic laboratory studies EKG chest x-ray lipase level magnesium level proBNP PT/INR, troponin, and full respiratory panel, will give 3 ml DuoNeb per RT, will give 4 mg IV Zofran and will obtain VBG. CMP is notable for hemoglobin hematocrit 11.10/35.6, which is in line with patient's baseline anemia Coags are notable for a PT elevation at one 3.5, INR is 1.24 CMP is notable for hyperchloremia at 110, BUN is elevated 34 creatinine is elevated 1.8, appears to be improved from baseline//creatinine draw, does have superimposed CKD. proBNP is elevated at 1750, troponin is less than 0.01, lipase is elevated at 972 pH is acidotic at 7.24, bicarb is decreased at 20.6, pCO2 within normal limits. With elevated lipase level and cachectic appearance, will obtain CT ab pelvis with contrast and CTA chest with without contrast PE protocol, will give 1 L IV NS. I reviewed the patient's chest x-ray along the corresponding radiologic report no acute findings. I reviewed the patient's CT abdomen pelvis with contrast along the corresponding radiologic report, no free air or fluid or adenopathy, colon is largely collapsed difficult to evaluate, rectosigmoid mucosal hyperemia and mild mucosal thickening seen, inflammatory changes not excluded, colonoscopy may be helpful, small stones or sludge in the gallbladder, pancreas appears normal no evidence for pancreatitis, right renal artery appears diminutive in size, severe calcific plaque in the renal arteries and renal artery stenosis not excluded. Reviewed the patient's CTA chest with without contrast PE protocol, along the corresponding radiologic report, no focal infiltrates, central lobar emphysema, no central or large peripheral pulmonary emboli, redemonstration of hypodense right thyroid lobe nodule recommend ultrasound, other/less critical/noncritical incidental findings as above. Will obtain POCUS bedside ultrasound due to lipase and findings on CT abdomen pelvis with nausea and vomiting, patient states she is still quite lightheaded and having presyncopal events, also notified by nursing staff as the patient went from the bedside toilet to the bed she became quite lightheaded, once again denies any vertiginous type symptomatology. Because of this we will obtain CT head and CTA head and neck with and without contrast. Full respiratory panel is notable for enterovirus otherwise unremarkable. I reviewed the patient's CT head without contrast along the corresponding radiologic report, no evidence for intracranial hemorrhage mass lesion or acute stroke intracranial vascular calcification with residual contrast distally within the cerebral vessels mild generalized atrophy mild small associated changes in the periventricular white matter mild ventricular prominence. I reviewed the patient's CTA head with without contrast along the corresponding radiologic report, no large vessel stenosis or occlusion no evidence of intracranial hemorrhage, mass lesions or acute stroke intracranial vascular calcification mild generalized atrophy mild small vessel changes periventricular white matter. I reviewed the patient's CTA neck with contrast along with the corresponding radiologic report, also had interactive discussion with at 9:07 PM. There is extensive calcific plaque in the left carotid bifurcation, high-grade 75 to 80% stenosis proximal left ICA, intracranial vascular calcification multifocal moderate to severe facet arthropathy multilevel generative disease mostly at C5-C6, to space narrowing and small disc osteophyte complex, mild central lobar emphysema, low-density right thyroid rim-enhancing lesion measuring 2.1 cm recommend ultrasound. Further discussion with the reading radiologist, he would recommend carotid ultrasound, MRI brain/MRA neck to determine/assess for any lacunar infarct after I gave him other clinical history, could be symptomatic left ICA stenosis causing the patient's near syncope. Will give IV azithromycin 500 mg for COPD exacerbation. I discussed this patient's case with the hospitalist provider Melonie Velasquez APRN at approximately 9:15 PM, she is in agreement with the current admission plan/treatment plan, for presyncope/near syncope in the setting of possible symptomatic carotid artery stenosis as well as COPD exacerbation. I discussed need for admission with the patient and family the bedside patient and family in agreement with current admission plan/treatment plan. They told me that patient has had what sounds like prior right CEA in the past. Attending physician discussed this once again with hospitalist provider Melonie Velasquez APRN in person at approximately 9:38 PM, she would like me to reach out to decorating equipment setter to see if patient would need intervention on carotid artery stenosis. I discussed this patient's case with decorating equipment setter at approximately 9:45 PM, at this time he does not believe the patient needs any carotid intervention, or transfer for carotid intervention, we would recommend medical management and continued admission for further workup. He will discuss this with hospitalist team. <Sterling Sim MD - Last Filed: 07/25/25 20:32> Vital Signs Vital Signs: 07/25/25 17:27 07/25/25 17:27 07/25/25 17:30 Temperature 98.6 F 98.6 F Temperature Source Oral Pulse Rate 90 98 H Pulse Rate [Right] 90 Respiratory Rate 20 20 19 Blood Pressure 107/85 L 137/91 H Blood Pressure [Right Arm] 107/85 L Blood Pressure Mean [Right Arm] 92 02 Sat by Pulse Oximetry 100 100 95 Oxygen Delivery Method Room Air Nasal Cannula Oxygen Flow Rate (LPM) 2 2 07/25/25 17:33 07/25/25 18:00 Temperature Temperature Source Pulse Rate 78 Pulse Rate [Right] Respiratory Rate 18 Blood Pressure 119/90 Blood Pressure [Right Arm] Blood Pressure Mean [Right Arm] 02 Sat by Pulse Oximetry 100 95 Oxygen Delivery Method Nasal Cannula Oxygen Flow Rate (LPM) 2 Lab Data Labs: Lab Results 07/25/25 17:10: WBC 9.9, RBC 3.92 L, Hgb 11.2 L, Hct 35.6 L, MCV 90.8, MCH 28.6, MCHC 31.5 L, RDW 14.5, Plt Count 341, MPV 9.9, Neut % (Auto) 58.2, Lymph % (Auto) 27.1, [place] % (Auto) 9.7 H, Eos % (Auto) 4.1, Baso % (Auto) 0.6, Neut # (Auto) 5.7, Lymph # (Auto) 2.7, [place] # (Auto) 1.0, Eos # (Auto) 0.4, Baso # (Auto) 0.1, PT 13.5 H, INR 1.24 H, Sodium 142, Potassium 4.7, Chloride 110 H, Carbon Dioxide 23, Anion Gap 13.7, BUN 34 H, Creatinine 1.80 H, Estimated Creat Clear 20, Estimated GFR 27 L, Est GFR ( Amer) 33 L, Glucose 118 H, Calcium 9.6, Magnesium 1.7, Total Bilirubin 0.4, AST 26, ALT 14, Alkaline Phosphatase 112, Troponin I < 0.01, NT-Pro-B Natriuret Pep 1750 H, Total Protein 6.8, Albumin 4.0, Globulin 2.8, Albumin/Globulin Ratio 1.4, Lipase 972 H 07/25/25 17:50: VBG pH 7.24 L, VBG pCO2 49.6, VBG pO2 25.2 L, VBG HCO3 20.6 L, V BG Total CO2 22.1 L, VBG O2 Saturation 44.9 L, VBG Base Excess -6.9 L, VBG Lactic Acid 1.7, Chlamy pneumoniae PCR Not detected, Adenovirus (PCR) Not detected, B. pertussis DNA (PCR) Not detected, Coronavirus OC43 (PCR) Not detected, Coronavirus HKU1 (PCR) Not detected, Coronavirus 229E (PCR) Not detected, SARS-CoV-2 (PCR) Not detected, Coronavirus NL63 (PCR) Not detected, Human Metapneumovir PCR Not detected, Influenza A (H1) PCR Not detected, Influ A (H1N1/09) PCR Not detected, Influenza A (H3) PCR Not detected, Influenza Type A (PCR) Not detected, Influenza Type B (PCR) Not detected, M. pneumoniae (PCR) Not detected, Parainfluenza 1 (PCR) Not detected, Parainfluenza 2 (PCR) Not detected, Parainfluenza 3 (PCR) Not detected, Parainfluenza 4 (PCR) Not detected, RSV (PCR) Not detected, Entero/Rhino (PCR) Detected A 07/25/25 20:59: Troponin I < 0.01 Response Orders (Tests/Meds): ED MEDICATIONS Generic Name Dose Route Start Last Admin Trade Name Freq PRN Reason Stop Dose Admin Azithromycin 500 mg/ Sodium 250 mls @ 250 mls/hr 07/25/25 21:15 07/25/25 21:29 Chloride IV 07/25/25 21:16 250 mls/hr ONCE ONE Administration Sodium Chloride 10 ml 07/25/25 20:10 07/25/25 20:11 Sodium Chloride 0.9% 10ml Syr (Rad Only) IV 08/24/25 20:09 10 ml NEEDED PRN Administration Maintain IV Site Discontinued Medications Generic Name Dose Route Start Last Admin Trade Name Freq PRN Reason Stop Dose Admin Albuterol/Ipratropium 3 ml 07/25/25 17:36 07/25/25 18:01 Ipratropium/Albuterol 3 Ml Neb IH 07/25/25 17:37 3 ml ONCE ONE Administration Sodium Chloride 1,000 mls @ 999 mls/hr 07/25/25 18:18 07/25/25 20:29 Sod Chlor 0.9% 1000ml Bag IV 07/25/25 19:18 Infused .Q1H1M ONE Infusion Iopamidol 70 ml 07/25/25 18:35 07/25/25 18:37 Iopamidol-370 (76%);100ml Bottle IV 07/25/25 18:36 70 ml ONCE ONE Administration Iopamidol 70 ml 07/25/25 20:10 07/25/25 20:11 Iopamidol-370 (76%);100ml Bottle IV 07/25/25 20:11 70 ml ONCE ONE Administration Ondansetron HCl 4 mg 07/25/25 19:10 07/25/25 19:23 Ondansetron 4mg/2ml Vial IV 07/25/25 19:11 4 mg ONCE ONE Administration Sodium Chloride 10 ml 07/25/25 18:35 07/25/25 18:37 Sodium Chloride 0.9% 10ml Syr (Rad Only) IV 07/25/25 18:36 10 ml ONCE ONE Administration Sodium Chloride 50 ml 07/25/25 18:35 07/25/25 18:36 0.9 % Sodium Chloride 50 Ml Vial IV 07/25/25 18:36 50 ml ONCE ONE Administration Sodium Chloride 50 ml 07/25/25 20:10 07/25/25 20:11 0.9 % Sodium Chloride 50 Ml Vial IV 07/25/25 20:11 50 ml ONCE ONE Administration ORDERS Category Date Time Status CT abdomen pelvis w con Stat Cat Scan 07/25/25 18:[address] angio chest PE protocol Stat Cat Scan 07/25/25 18:[address] angio head Stat Cat Scan 07/25/25 19:[address] angio neck Stat Cat Scan 07/25/25 19:[address] head/brain wo con Stat Cat Scan 07/25/25 19:45 Completed POCUS Point of Care (ER Only) Stat Exams 07/25/25 19:43 Completed XR chest portable Stat Exams 07/25/25 17:35 Completed Complete Blood Count Auto Diff AMLAB Lab 07/26/25 06:00 Ordered Complete Blood Count Auto Diff Stat Lab 07/25/25 17:10 Completed Comprehensive Metabolic Panel AMLAB Lab 07/26/25 06:00 Ordered Comprehensive Metabolic Panel Stat Lab 07/25/25 17:10 Completed Full Resp Panel w/COVID ([facility]) Routine Lab 07/25/25 17:50 Completed Lipase Stat Lab 07/25/25 17:10 Completed Magnesium Stat Lab 07/25/25 17:10 Completed NT Pro Brain Natriuretic Pep. Stat Lab 07/25/25 17:10 Completed PT INR [Prothrombin Time INR] Stat Lab 07/25/25 17:10 Completed Troponin I Q3H Lab 07/25/25 20:59 Completed Troponin I Stat Lab 07/25/25 17:10 Completed VBG [Venous Blood Gas] Stat RT 07/25/25 17:50 Completed
[2025-07-25 17:30] VITALS: BP 137/91; PULSE 98; RESP 19; O2SAT 95
[2025-07-25 17:33] VITALS: O2SAT 100
--- NOTE | 2025-07-25 17:35 | XR_ITS ---
PROCEDURE INFORMATION: Exam: XR Chest Exam date and time: 07/25/2025 5:52 PM Age: 75 years old Clinical indication: Cough and shortness of breath; Additional info: SOA and productive cough TECHNIQUE: Imaging protocol: Radiologic exam of the chest. Views: 1 view. COMPARISON: CT ANGIO CHEST PE PROTOCOL 06/01/2025 10:43 PM FINDINGS: Lungs: Hyperexpanded lungs consistent with COPD. No consolidation. Pleural spaces: Unremarkable. No pleural effusion. No pneumothorax. Heart/Mediastinum: Coronary artery stent.. No cardiomegaly. Bones/joints: Unremarkable. IMPRESSION: No acute findings.
[2025-07-25 17:44] LABS: Hematocrit 35.6 % (37.0-47.0); Hemoglobin 11.2 g/dL (12.2-16.2); Immature Granulocytes % 0.3 %; Mean Corpuscular HGB Conc 31.5 g/dL (31.8-35.4); Mean Corpuscular Hemoglobin 28.6 pg (27.0-31.2); Mean Corpuscular Volume 90.8 fl (81-99); Nucleated Red Blood Cells % 0 %; Platelet Count 341 K/mm3 (142-424); Red Blood Count 3.92 M/mm3 (4.20-5.40); Red Cell Distribution Width-SD 48.2 fL; White Blood Count 9.9 K/mm3 (4.8-10.8)
[2025-07-25 17:48] LABS: Albumin Level 4.0 g/dl (3.5-5.0); Chloride 110 mmol/L (98-107); Potassium 4.7 mmoL/L (3.5-5.1); Sodium 142 mmol/L (136-145)
[2025-07-25 17:50] LABS: Blood Urea Nitrogen 34 mg/dl (7-17); Creatinine Clearance Estimated 20 mL/min (50-200); Creatinine,Serum 1.80 mg/dl (0.52-1.04); Estimated Glomerular Filt Rate 27 ml/min (>60); GFR (African American) 33 ML/MIN (>60); INR 1.24 (0.9-1.1); Prothrombin Time 13.5 seconds (10.1-12.5)
[2025-07-25 17:51] LABS: Alanine Aminotransferase 14 U/L (12-78); Albumin/Globulin Ratio 1.4 (1.1-1.8); Alkaline Phosphatase 112 U/L (38-126); Anion Gap 13.7 mEq/L (5-15); Aspartate Amino Transferase 26 U/L (14-36); Bilirubin,Total 0.4 mg/dl (0.2-1.3); Calcium 9.6 mg/dl (8.4-10.2); Carbon Dioxide 23 mmol/L (22.0-30.0); Globulin 2.8 g/dL (1.3-3.2); Glucose 118 mg/dl (74-100); Magnesium 1.7 mg/dl (1.6-2.3); Total Protein,Serum 6.8 g/dl (6.3-8.2)
[2025-07-25 17:54] LABS: Adenovirus,PCR Not Detected (NotDetected); Chlamydophila Pneumoniae, PCR Not Detected (NotDetected); Coronavirus 19, PCR Not Detected (NotDetected); Coronovirus HKU1,PCR Not Detected (NotDetected); Influenza A, PCR Not Detected (NotDetected); Influenza AH1, 2009 Not Detected (NotDetected); Influenza AH1, PCR Not Detected (NotDetected); Influenza AH3,PCR Not Detected (NotDetected); Influenza B, PCR Not Detected (NotDetected); Mycoplasma Pneumoniae, PCR Not Detected (NotDetected); Parainfluenza 1, PCR Not Detected (NotDetected); Parainfluenza 2, PCR Not Detected (NotDetected); Parainfluenza 3, PCR Not Detected (NotDetected); Parainfluenza 4, PCR Not Detected (NotDetected)
[2025-07-25 17:56] LABS: Lactate Venous 1.7 mmol/L (0.4-2.0); VBG HCO3 20.6 mmol/L (23-30); VBG PCO2 49.6 mmol/L (35-51); VBG PH 7.24 mmol/L (7.31-7.41); VBG PO2 25.2 mmol/L (28-40)
[2025-07-25 18:00] VITALS: BP 119/90; PULSE 78; RESP 18; O2SAT 95
[2025-07-25 18:00] LABS: NT Pro Brain Natriuretic Pep. 1750 pg/mL (0-450)
[2025-07-25] MEDS: IPRATROPIUM/ALBUTEROL 3 ML NEB IH (18:01)
[2025-07-25 18:06] LABS: Troponin I < 0.01 ng/ml (0.00-0.034)
[2025-07-25 18:08] LABS: Lipase 972 U/L (23-300)
--- NOTE | 2025-07-25 18:13 | CT_ITS ---
PROCEDURE INFORMATION: Exam: CTA Chest With Contrast Exam date and time: 07/25/2025 6:35 PM Age: 75 years old Clinical indication: Shortness of breath; Additional info: SOA TECHNIQUE: Imaging protocol: Computed tomographic angiography of the chest with contrast. Exam focused on the arteries. 3D rendering (Not supervised by radiologist): MIP and/or 3D reconstructed images were created by the technologist. Radiation optimization: All CT scans at this facility use at least one of these dose optimization techniques: automated exposure control; mA and/or kV adjustment per patient size (includes targeted exams where dose is matched to clinical indication); or iterative reconstruction. Contrast material: ISOVUE; Contrast volume: 70 ml; Contrast route: INTRAVENOUS (IV); COMPARISON: CT ANGIO CHEST PE PROTOCOL 06/01/2025 10:43 PM FINDINGS: Pulmonary arteries: No central or large peripheral pulmonary emboli. Aorta: Moderate atherosclerotic changes of the aorta and branches. Thyroid: Cystic lesion in the right thyroid lobe similar to 06/01/2025; recommend ultrasound image 12/17. Lungs: Mild centrilobular emphysema. No focal infiltrates. Small right upper lobe granuloma. Hyperexpanded lungs. Pleural spaces: Unremarkable. No pneumothorax. No pleural effusion. Heart: Unremarkable. No cardiomegaly. No pericardial effusion. Coronary arteries: Coronary artery calcifications. Lymph nodes: Unremarkable. No enlarged lymph nodes. Bones/joints: Unremarkable. No acute fracture. Soft tissues: Unremarkable. IMPRESSION: 1. No focal infiltrates. 2. Centrilobular emphysema. 3. No central or large peripheral pulmonary emboli. 4. Redemonstration of hypodense right thyroid lobe nodule. Recommend ultrasound. 5. Other (less critical/noncritical/incidental) findings as above; please refer to the body of report for further details. COMMENTS: The presence of pulmonary emphysema on CT is an independent risk factor for lung cancer. In the absence of a history or active diagnosis of lung cancer, it is recommended that this patient with emphysema be evaluated for enrollment in a low dose CT lung cancer screening program.
--- NOTE | 2025-07-25 18:13 | CT_ITS ---
PROCEDURE INFORMATION: Exam: CT Abdomen And Pelvis With Contrast Exam date and time: 07/25/2025 6:35 PM Age: 75 years old Clinical indication: Other: Weakness, elevated lipase; Additional info: Elevated lipase, weakness TECHNIQUE: Imaging protocol: Computed tomography of the abdomen and pelvis with contrast. 3D rendering (Not supervised by radiologist): MIP and/or 3D reconstructed images were created by the technologist. Radiation optimization: All CT scans at this facility use at least one of these dose optimization techniques: automated exposure control; mA and/or kV adjustment per patient size (includes targeted exams where dose is matched to clinical indication); or iterative reconstruction. Contrast material: ISOVUE; Contrast volume: 70 ml; Contrast route: IV; COMPARISON: CT ANGIO CHEST PE PROTOCOL 06/01/2025 10:43 PM FINDINGS: Esophagus: The esophagus is normal. Liver: The liver is normal. Gallbladder and biliary ducts: Small stones or sludge in the gallbladder. Pancreas: Pancreas appears normal. Spleen: Spleen is normal Adrenal glands: The adrenal glands appear normal. Kidneys and ureters: Normal. No hydronephrosis. Stomach and bowel: The colon is largely collapsed and difficult to evaluate. Rectosigmoid mucosal hyperemia and mild mucosal thickening seen image [id number] and . The stomach is normal. Appendix: A normal appendix is identified. Intraperitoneal space: Unremarkable. No free air. No significant fluid collection. Vasculature: The right renal artery appears diminutive in size image . Severe calcific plaque in the renal arteries and renal artery stenosis not excluded. The aorta demonstrates severe atherosclerotic calcification and ectasia. Portal vein, splenic vein, SMV are patent. The SMA and celiac vessels appear patent. Severe aortoiliac calcific plaque. Lymph nodes: No free air or fluid or adenopathy. Urinary bladder: The bladder is normal. Reproductive: There has been a hysterectomy. Bones/joints: The lumbar spine demonstrates moderate degenerative changes at multiple levels. Soft tissues: Unremarkable. IMPRESSION: 1. No free air or fluid or adenopathy. 2. The colon is largely collapsed and difficult to evaluate. 3. Rectosigmoid mucosal hyperemia and mild mucosal thickening seen image /[id number] and . Inflammatory changes not excluded. Colonoscopy may be helpful. 4. Small stones or sludge in the gallbladder. 5. Pancreas appears normal. No evidence for pancreatitis. 6. The right renal artery appears diminutive in size image . 7. Severe calcific plaque in the renal arteries and renal artery stenosis not excluded.
--- NOTE | 2025-07-25 18:16 | ECG_ITS ---
APPROVED REPORT Exam: Resting ECG HR:75 bpm ECG Measurements Heart Rate 75 AXES OH 139 P 87 QRSd 78 QRS 84 QT 355 T 82 QTc 384 Conclusion SINUS RHYTHM MODERATE ST DEPRESSION [0.05+ mV ST DEPRESSION] ABNORMAL ECG UNCONFIRMED REPORT Normal sinus rhythm. No STEMI Electronically signed by : LALIT JOSEPH, 07/25/2025 21:37:19
[2025-07-25] MEDS: 0.9 % SODIUM CHLORIDE 1000ML 1,000 ML 999 ML IV (18:23)
[2025-07-25] MEDS: 0.9 % SODIUM CHLORIDE 50 ML VIAL IV ×2 (18:36→20:11)
[2025-07-25] MEDS: SODIUM CHLORIDE 0.9% 10ML SYR (RAD ONLY) 10 ML IV ×2 (18:37→20:11)
[2025-07-25] MEDS: IOPAMIDOL-370 (76%);100ML BOTTLE 70 ML IV ×2 (18:37→20:11)
[2025-07-25] MEDS: ONDANSETRON 4MG/2ML VIAL 4 MG IV (19:23)
--- NOTE | 2025-07-25 19:45 | CT_ITS ---
PROCEDURE INFORMATION: Exam: CT Head Without Contrast Exam date and time: 07/25/2025 8:09 PM Age: 75 years old Clinical indication: Other: Weakness; Additional info: Presyncope/weakness, lightheadedness TECHNIQUE: Imaging protocol: Computed tomography of the head without contrast. Radiation optimization: All CT scans at this facility use at least one of these dose optimization techniques: automated exposure control; mA and/or kV adjustment per patient size (includes targeted exams where dose is matched to clinical indication); or iterative reconstruction. COMPARISON: CT HEAD/BRAIN WO CON 07/25/2025 8:09 PM FINDINGS: Brain: No evidence for intracranial hemorrhage, mass lesions or acute stroke. Intracranial vascular calcifications. Residual contrast is seen within the cerebral vessels. Mild small vessel ischemic change in the periventricular white matter. Cerebral ventricles: Mild ventricular prominence. Pituitary gland and sella: Negative Paranasal sinuses: Visualized sinuses are unremarkable. No fluid levels. Mastoid air cells: Visualized mastoid air cells are well aerated. Orbital cavities: Negative. Bones: Unremarkable. No acute fracture. Soft tissues: Unremarkable. Vasculature: Negative. Other findings: Mild generalized atrophy. IMPRESSION: 1. No evidence for intracranial hemorrhage, mass lesions or acute stroke. 2. Intracranial vascular calcifications. 3. Residual contrast is seen within the cerebral vessels. 4. Mild generalized atrophy. 5. Mild small vessel ischemic change in the periventricular white matter. 6. Mild ventricular prominence.
--- NOTE | 2025-07-25 19:45 | CT_ITS ---
PROCEDURE INFORMATION: Exam: CTA Neck With Contrast Exam date and time: 07/25/2025 8:11 PM Age: 75 years old Clinical indication: Weakness; Additional info: Presyncope lightheadedness, weakness TECHNIQUE: Imaging protocol: Computed tomographic angiography of the neck with contrast. Exam focused on the cervical segments of the vasculature. 3D rendering (Not supervised by radiologist): MIP and/or 3D reconstructed images were created by the technologist. Radiation optimization: All CT scans at this facility use at least one of these dose optimization techniques: automated exposure control; mA and/or kV adjustment per patient size (includes targeted exams where dose is matched to clinical indication); or iterative reconstruction. Contrast material: ISOVUE; Contrast volume: 70 ml; Contrast route: INTRAVENOUS (IV); COMPARISON: CT ANGIO CHEST PE PROTOCOL 07/25/2025 6:35 PM FINDINGS: Right common carotid artery: No stenosis. No dissection or occlusion. Right internal carotid artery: No stenosis of the extracranial segment. No dissection or occlusion. Right external carotid artery: No occlusion or stenosis of the origin. Left common carotid artery: Extensive calcific plaque left carotid bifurcation. Left internal carotid artery: High-grade 75-80% stenosis proximal left internal carotid artery image and . Left external carotid artery: No occlusion or stenosis of the origin. Right vertebral artery: No stenosis. No dissection or occlusion. Left vertebral artery: No stenosis. No dissection or occlusion. Brain: Intracranial vascular calcifications. Thyroid: Low-density right thyroid lobe rim enhancing lesion measuring 2.1 cm; recommend ultrasound. Soft tissues: Normal. No significant soft tissue swelling. Bones/joints: Multifocal moderate to severe facet arthropathy. Multilevel degenerative disc disease most significant at C5-C6 with disc space narrowing and small disc osteophyte complex. Lungs: Mild centrilobular emphysema. IMPRESSION: 1. Extensive calcific plaque left carotid bifurcation. 2. High-grade 75-80% stenosis proximal left internal carotid artery image and . 3. Intracranial vascular calcifications. 4. Multifocal moderate to severe facet arthropathy. 5. Multilevel degenerative disc disease most significant at C5-C6 with disc space narrowing and small disc osteophyte complex. 6. Mild centrilobular emphysema. 7. Low-density right thyroid lobe rim enhancing lesion measuring 2.1 cm; recommend ultrasound. COMMENTS: Consistent with the [employer]'s Incidental Findings Committee white paper (J Am Ch[employer]iol 2015): In patients aged 35 years and older with an incidental thyroid nodule equal to or greater than 1.[address], MRI or extrathyroidal US, further evaluation with dedicated thyroid US is recommended for patients with normal life expectancy and without comorbidities. For smaller nodules without suspicious features, no further evaluation or follow up is recommended. REFERENCES: NASCET CRITERIA. The degree of stenosis in the cervical segment of the internal carotid artery is based on NASCET criteria. Normal is no stenosis. Mild is less than 50% stenosis. Moderate is 50-69% stenosis. Severe is 70% to 99% stenosis. Total occlusion is no detectable patent lumen.
--- NOTE | 2025-07-25 19:45 | CT_ITS ---
PROCEDURE INFORMATION: Exam: CTA Head With Contrast, Arteriography Exam date and time: 07/25/2025 8:11 PM Age: 75 years old Clinical indication: Weakness; Additional info: Presyncope, lightheadedness, weakness TECHNIQUE: Imaging protocol: Computed tomographic angiography of the head with contrast. Exam focused on the arteries. 3D rendering (Not supervised by radiologist): MIP and/or 3D reconstructed images were created by the technologist. Radiation optimization: All CT scans at this facility use at least one of these dose optimization techniques: automated exposure control; mA and/or kV adjustment per patient size (includes targeted exams where dose is matched to clinical indication); or iterative reconstruction. Contrast material: ISOVUE; Contrast volume: 70 ml; Contrast route: INTRAVENOUS (IV); COMPARISON: CT HEAD/BRAIN WO CON 07/25/2025 8:09 PM FINDINGS: ANTERIOR CIRCULATION: Right internal carotid artery: Intracranial segment is patent with no significant stenosis. No aneurysm. Right middle cerebral artery: No occlusion or significant stenosis. No aneurysm. Right anterior cerebral artery: No occlusion or significant stenosis. No aneurysm. Left internal carotid artery: Intracranial segment is patent with no significant stenosis. No aneurysm. Left middle cerebral artery: No occlusion or significant stenosis. No aneurysm. Left anterior cerebral artery: No occlusion or significant stenosis. No aneurysm. POSTERIOR CIRCULATION: Right vertebral artery: No occlusion or significant stenosis. No aneurysm. Left vertebral artery: No occlusion or significant stenosis. No aneurysm. Basilar artery: No occlusion or significant stenosis. No aneurysm. Right posterior cerebral artery: No occlusion or significant stenosis. No aneurysm. Left posterior cerebral artery: No occlusion or significant stenosis. No aneurysm. Brain: No definite mass, mass effect, or midline shift. No evidence for intracranial hemorrhage, mass lesions or acute stroke. Intracranial vascular calcifications. Mild small vessel ischemic change in the periventricular white matter. Cerebral ventricles: No ventriculomegaly. Bones/joints: Unremarkable. No acute fracture. Soft tissues: Unremarkable. Other findings: Mild generalized atrophy. IMPRESSION: 1. No large vessel stenosis or occlusion. 2. No evidence for intracranial hemorrhage, mass lesions or acute stroke. 3. Intracranial vascular calcifications. 4. Mild generalized atrophy. 5. Mild small vessel ischemic change in the periventricular white matter.
[2025-07-25 21:26] LABS: Troponin I < 0.01 ng/ml (0.00-0.034)
[2025-07-25] MEDS: AZITHROMYCIN 500 MG in 0.9 % SODIUM CHLORIDE 250 ML 250 MG IV (21:29)
--- NOTE | 2025-07-25 21:42 | PC.NURSE ---
report called to josé miguel CAMPA
--- NOTE | 2025-07-25 22:03 | PC.NURSE ---
Patient arrived to floor via stretcher from ED at 22:01.
[2025-07-25 22:16] VITALS: BP 129/76; PULSE 84; RESP 19; TEMP 37.1; O2SAT 95
[2025-07-25 22:32] VITALS: BP 155/76; PULSE 87; RESP 18; TEMP 36.6; O2SAT 96; BMI 21.2
[2025-07-25] MEDS: APAP/HYDROCODONE 325MG/7.5MG TAB 1 TAB PO (23:18)
[2025-07-25] MEDS: BUSPIRONE HCL 5 MG TABLET PO (23:19)
--- NOTE | 2025-07-25 23:25 | P.HP_ITS ---
<Statement entered by Juan Manuel Stringer MD - 07/26/25 12:16> Rounded on patient after nurse practitioner. Personally examined and interviewed patient. Agree with exam findings and care plan as documented. History of Present Illness *Admission Date: 07/25/25 *Reason for visit:: Shortness of breath *History of present illness: Loreta Santiago is a 75-year-old female past medical history significant for COPD, iron deficiency anemia, HLD, HTN, HFpEF, CAD, supplemental O2 dependence. Patient presents to [facility] secondary to shortness of breath over the last several days. At baseline patient wears 2 to half liter nasal cannula but was requiring 5 L. Patient also endorsed subjective fever with chills, productive cough and lightheadedness. Due to worsening symptoms EMS was notified. On their arrival they noted patient on 5 L with adequate saturations but with accessory muscle use, placed on nonrebreather at 10 L and received DuoNeb and 125 mg IV Solu-Medrol with improvement. While in the emergency department patient was noted to have another presyncopal event. Multiple imagings obtained per ED workup, unremarkable with the exception of CTA neck revealing extensive calcific in the left carotid bifurcation with 75%-80% stenosis proximal left ICA. Patient received IV azithromycin due to underlying COPD exacerbation. Case was also discussed with Dr. Ratliff who would okay with patient admission for further evaluation/treatment. Patient denies chest pain, abdominal pain, urinary symptoms, hemoptysis, diarrhea. Initial ED workup included laboratory studies and imaging. Significant laboratory findings include VBG pH 7.24, pO2 25, HCO3 20.6, total CO2 22, creatinine 1.80, BUN 34, GFR 27, BNP 1750, lipase 972. Respiratory panel pathogen positive for entero/rhinovirus. Imaging studies were personally reviewed by myself; CT abdomen and pelvis revealing rectosigmoid mucosal hyperemia and mild mucosal thickening. Smalll stones or sludge in the gallbladder. Severe calcific plaque in the renal arteries and renal artery stenosis not excluded. Chest CTA no evidence pulmonary emboli, noted hypodense right thyroid lobe nodule. Head CTA no evidence for intracranial hemorrhage, mass lesions or acute stroke. Intracranial vascular calcifications. Mild generalized atrophy. Mild small vessel ischemic change in the periventricular white matter. Mild ventricular prominence. Neck CTA with extensive calcific plaque left carotid bifurcation. High-grade 75-80% stenosis proximal left internal carotid artery. Intracranial vascular calcifications. Multifocal moderate to severe facet arthropathy. Multilevel degenerative disc disease most significant at C5-C6 with disc space narrowing and small disc osteophyte complex.Mild centrilobular emphysema. Low-density right thyroid lobe rim enhancing lesion measuring 2.1 cm. Assessment of patient at bedside she was without acute distress, hemodynamically stable. [facility] Disclaimer: The information contained in this section may have been updated after the patient was seen, as this information can be updated by other users. Medical History Vocal cord dysfunction COPD mixed type ENRICO (acute kidney injury) Elevated troponin Hypocalcemia Hypomagnesemia Thyroid lesion Acidosis Chronic bronchitis Acute exacerbation of CHF (congestive heart failure) Acute exacerbation of chronic obstructive pulmonary disease Ex-smoker Pulmonary cachexia due to chronic obstructive pulmonary disease Acute and chronic respiratory failure with hypercapnia Distressed breathing CAP (community acquired pneumonia) Other forms of dyspnea Pulmonary hypertension Hyperlipidemia Hypertension Dyspnea Atypical angina Chronic respiratory failure with hypoxia Encounter for screening for malignant neoplasm of lung Smoking greater than 30 pack years Pulmonary emphysema COPD exacerbation BMI less than 19,adult (HFpEF) heart failure with preserved ejection fraction Tobacco dependence Dependence on supplemental oxygen Coronary artery disease Iron deficiency anemia COPD (chronic obstructive pulmonary disease) Surgical History Hx of esophagogastroduodenoscopy History of colonoscopy History of hysterectomy History of heart artery stent S/P cardiac catheterization Family History Father Alzheimer disease Mother Stroke Social History Smoking Status: Former smoker tobacco type: cigarettes packs per day: 1 pack- years: 50 years smoked: 50 smoking status stop date: 3 years ago alcohol intake: former substance use type: denies use current occupational status: other Travel in the last 8 weeks?: None Have you lived/traveled outside [place] in past 30 days?: No Contact w/someone who lives/traveled outside [place] past 30 days?: No Exposure to someone with infectious disease in past 14 days?: No Do you have a fever (greater than 100.4 F or 38 C)?: No Have you tested positive for COVID-19?: No Exposed to someone with COVID-19 in past 14 days?: No Do you have a sore throat?: No Do you have a cough?: No Do you have any weakness?: No Do you have any diarrhea?: No Are you experiencing any unusual bleeding?: No Do you have any muscle aches/pain?: No Do you have any abdominal pain?: No Are you experiencing loss of taste or smell?: No Other Medical History Have you received the Flu Vaccine for this season: No Have you received the Pneumonia Vaccine: No Review of Systems Review of Systems Review of systems:: pertinent systems reviewed and negative unless documented below Constitutional Constitutional: Reports as per HPI, Reports chills, Reports fever(s) and Reports lethargy Eyes Eyes: Reports system reviewed and no additional complaints, except as documented and Reports as per HPI ENT Ears, Nose, Mouth, and Throat: Reports system reviewed and no additional complaints, except as documented and Reports as per HPI *Cardiovascular Cardiovascular: Reports system reviewed and no additional complaints, except as documented, Reports as per HPI, Reports dyspnea and Reports dyspnea on exertion *Respiratory Respiratory: Reports as per HPI, Reports chest congestion, Reports cough, Reports dyspnea and Reports dyspnea on exertion *Gastrointestinal Gastrointestinal: Reports as per HPI, Reports nausea and Reports vomiting *Genitourinary Genitourinary: Reports system reviewed and no additional complaints, except as documented and Reports as per HPI *Musculoskeletal Musculoskeletal: Reports system reviewed and no additional complaints, except as documented and Reports as per HPI Integumentary/Breasts Skin/Breast: Reports system reviewed and no additional complaints, except as documented and Reports as per HPI *Neurologic Neurologic: Reports system reviewed and no additional complaints, except as documented and Reports as per HPI Psychiatric Psychiatric: Reports system reviewed and no additional complaints, except as documented and Reports as per HPI Meds Home Medications and Allergies Home Medications ?Medication ?Instructions ?Recorded ?Confirmed ?Type meloxicam 15 mg tablet 15 mg PO DAILY 01/07/2507/07 History montelukast 10 mg tablet 10 mg PO HS 01/07/25 5 History albuterol sulfate 90 mcg/actuation 2 inh inhalation QI DP PRN 02/12/25 07/25/25 History aerosol inhaler shortness of breath or wheez ing rivastigmine 4.6 mg/24 hour 4.6 mg topical Q48H 07/25/25 History transdermal patch fluticasone fur. 100 mcg-umeclid 1 inh inhalation LINDSAY Y 90 days #60 02/20/25 07/25/25 Rx 62.5 mcg-vilant 25 mcg ea inhalat.powder (Trelegy Ellipta) ipratropium 0.5 mg-albuterol 3 mg 3 ml inhalation Q6HP PRN shortness 02/21/25 07/25/25 Rx (2.5 mg base)/3 mL nebulization of breath or wheezing 30 days #180 soln mL carvedilol 25 mg tablet 25 mg PO BIDWMEAL 02/25/25 1 09/25/24 History hydrocodone 7.5 mg-acetaminophen 1 tab PO Q6H PRN Mild Pain (Scale 02/25/25 07/25/25 History 325 mg tablet Score 1-4) atorvastatin 40 mg tablet 40 mg PO HS 30 days #30 tabs 03/06/25 07/25/25 Rx buspirone 5 mg tablet 5 mg PO TID 30 days #90 tabs 03/06/25 07/25/25 Rx clopidogrel 75 mg tablet 75 mg PO DAILY 30 days #30 t abs 03/06/25 07/25/25 Rx empagliflozin 10 mg tablet 10 mg PO DAILY 30 days #30 tabs 03/06/25 07/25/25 Rx (Jardiance) escitalopram oxalate 20 mg tablet 20 mg PO DAILY 30 da ys #30 tabs 03/06/25 07/25/25 Rx hydroxyzine pamoate 25 mg capsule 25 mg PO TIDP PRN An xiety 30 days 03/06/25 07/25/25 Rx #60 caps potassium chloride 20 mEq 20 meq PO DAILY #30 tabs 07/25/25 Rx tablet,extended release(part/cryst) (Klor-Con M) spironolactone 25 mg tablet 25 mg PO DAILY 30 days #30 tabs 03/06/25 07/25/25 Rx furosemide 40 mg tablet (Lasix) 40 mg PO DAILY 5 07/25/25 History losartan 50 mg tablet 50 mg PO DAILY 07/25/2507/07 History New Prescriptions to Start Prescriptions: Allergies Allergy/AdvReac Type Severity Reaction Status Date / Time No Known Allergies Allergy Verified 03/31/25 14:41 Exam Data for Last 24 hours Vital signs and Labs for Last 24 Hours: Temp Pulse Resp BP Pulse Ox O2 Del Method O2 Flow Rate 97.9 F 87 18 155/76 H 96 Nasal Cannula 2 07/25/25 22:32 07/25/25 22:32 07/25/25 22:32 07/25/25 22:32 07/25/25 22:32 07/25/25 23:00 07/25/25 23:00 Laboratory Results - last 24 hr 07/25/25 17:10: WBC 9.9, RBC 3.92 L, Hgb 11.2 L, Hct 35.6 L, MCV 90.8, MCH 28.6, MCHC 31.5 L, RDW 14.5, Plt Count 341, MPV 9.9, Neut % (Auto) 58.2, Lymph % (Auto) 27.1, [place] % (Auto) 9.7 H, Eos % (Auto) 4.1, Baso % (Auto) 0.6, Neut # (Auto) 5.7, Lymph # (Auto) 2.7, [place] # (Auto) 1.0, Eos # (Auto) 0.4, Baso # (Auto) 0.1, PT 13.5 H, INR 1.24 H, Sodium 142, Potassium 4.7, Chloride 110 H, Carbon Dioxide 23, Anion Gap 13.7, BUN 34 H, Creatinine 1.80 H, Estimated Creat Clear 20, Estimated GFR 27 L, Est GFR ( Amer) 33 L, Glucose 118 H, Calcium 9.6, Magnesium 1.7, Total Bilirubin 0.4, AST 26, ALT 14, Alkaline Phosphatase 112, Troponin I < 0.01, NT-Pro-B Natriuret Pep 1750 H, Total Protein 6.8, Albumin 4.0, Globulin 2.8, Albumin/Globulin Ratio 1.4, Lipase 972 H 07/25/25 17:50: VBG pH 7.24 L, VBG pCO2 49.6, VBG pO2 25.2 L, VBG HCO3 20.6 L, VBG Total CO2 22.1 L, VBG O2 Saturation 44.9 L, VBG Base Excess -6.9 L, VBG Lactic Acid 1.7, Chlamy pneumoniae PCR Not detected, Adenovirus (PCR) Not detected, B. pertussis DNA (PCR) Not detected, Coronavirus OC43 (PCR) Not detected, Coronavirus HKU1 (PCR) Not detected, Coronavirus 229E (PCR) Not detected, SARS-CoV-2 (PCR) Not detected, Coronavirus NL63 (PCR) Not detected, Human Metapneumovir PCR Not detected, Influenza A (H1) PCR Not detected, Influ A (H1N1/09) PCR Not detected, Influenza A (H3) PCR Not detected, Influenza Type A (PCR) Not detected, Influenza Type B (PCR) Not detected, M. pneumoniae (PCR) Not detected, Parainfluenza 1 (PCR) Not detected, Parainfluenza 2 (PCR) Not detected, Parainfluenza 3 (PCR) Not detected, Parainfluenza 4 (PCR) Not detected, RSV (PCR) Not detected, Entero/Rhino (PCR) Detected A 07/25/25 20:59: Troponin I < 0.01 I & O for Last 24 hours: Intake & Output 07/22/25 07/23/25 07/24/25 07/25/25 23:59 23:59 23:59 23:59 Intake Total 1250 / 1250 Balance 1250 / 1250 Weight 50.984 kg Constitutional Constitutional: no acute distress *Routine HEENT Exam Head: Present normocephalic and atraumatic Eye: Present EOMI, PERRL and normal accommodation ENT: Present mucous membranes moist *Routine Neck Exam Neck: Present supple and full ROM *Routine Respiratory Exam Respiratory: Present rhonchi, normal respiratory effort and able to speak in complete sentences *Routine Cardiovascular Exam Cardiovascular: Present RRR, Normal S1 and Normal S2 *Routine Abdominal Exam Abdominal: Present soft and normoactive bowel sounds *Routine Rectal Exam Rectal:: deferred *Routine Genitalia Exam Genitalia:: deferred *Routine Extremities Exam Extremities: Present full ROM, pulses intact and normal capillary refill *Routine Skin Exam Skin: Present intact *Routine Neurological Exam Neurological: Present alert, oriented X3 and CN II-XII intact Assessment and Plan *Assessment and plan (1) Acute exacerbation of chronic obstructive airways disease: Status: Acute Category: Medical Code(s): J44.1 - Chronic obstructive pulmonary disease with (acute) exacerbation (2) Acute bronchitis due to Rhinovirus: Status: Acute Category: Medical Code(s): J20.6 - Acute bronchitis due to rhinovirus (3) Enterovirus infection: Status: Acute Category: Medical Code(s): B34.1 - Enterovirus infection, unspecified (4) Near syncope: Status: Acute Category: Medical Code(s): R55 - Syncope and collapse (5) Stenosis of left internal carotid artery: Status: Acute Category: Medical Code(s): I65.22 - Occlusion and stenosis of left carotid artery (6) Nausea & vomiting: Status: Acute Qualifiers: Vomiting type: bilious vomiting Qualified Code(s): R11.14 - Bilious vomiting Category: Medical Code(s): R11.2 - Nausea with vomiting, unspecified (7) Nodule of right lobe of thyroid gland: Status: Acute Category: Medical Code(s): E04.1 - Nontoxic single thyroid nodule (8) CKD (chronic kidney disease) stage 3, GFR 30-59 ml/min: Status: Acute Qualifiers: Chronic kidney disease stage 3 subtype: stage 3b (GFR 30-44) Qualified Code(s): N18.32 - Chronic kidney disease, stage 3b Category: Medical Code(s): N18.30 - Chronic kidney disease, stage 3 unspecified (9) (HFpEF) heart failure with preserved ejection fraction: Status: Acute Qualifiers: Heart failure chronicity: chronic Qualified Code(s): I50.32 - Chronic diastolic (congestive) heart failure Category: Medical Code(s): I50.30 - Unspecified diastolic (congestive) heart failure (10) Hypertension: Status: Acute Qualifiers: Hypertension type: primary hypertension Qualified Code(s): I10 - Essential (primary) hypertension Category: Medical Code(s): I10 - Essential (primary) hypertension (11) Hyperlipidemia: Status: Acute Qualifiers: Hyperlipidemia type: mixed hyperlipidemia Qualified Code(s): E78.2 - Mixed hyperlipidemia Category: Medical Code(s): E78.5 - Hyperlipidemia, unspecified (12) Coronary artery disease: Status: Acute Qualifiers: Associated angina: with other forms of angina Coronary Disease- Associated Artery/Lesion type: [place] artery [place] vs. transplanted heart: [place] heart Qualified Code(s): I25.118 - Atherosclerotic heart disease of [place] coronary artery with other forms of angina pectoris Category: Medical Code(s): I25.10 - Atherosclerotic heart disease of [place] coronary artery without angina pectoris Plan Assessment/plan: I personally discussed the management of this patient with the emergency department provider and agree with admission. Loreta is a 75-year-old female who presented with shortness of breath, fever, chills and congestion, lightheadedness with nausea and vomiting over the last several days. ED workup revealed positive RPP with rhino/enterovirus. CTA chest without acute finding of any embolism. CTA head and neck obtained revealing extensive calcific plaque left carotid bifurcation. High-grade 75-80% stenosis proximal left internal carotid artery. ED provider discussed case with Dr. Ratliff who suspected underlying presyncopal episodes unrelated to carotid stenosis finding, agreed with admission. Will follow-up with patient for further evaluation. IV azithromycin initiated in the emergency department for COPD exacerbation. Blood culture obtained/pending along with sputum culture. Mucolytic, Zofran as needed for nausea, DuoNebs as needed for shortness of breath/wheezing. IV Solu-Medrol, pulmonary hygiene. Trend labs. 1. Acute exacerbation of chronic obstructive pulmonary disease/acute bronchitis due to rhinovirus/enterovirus: RPP positive for entero-/rhinovirus. IV azithromycin initiated, resume therapy. Blood culture sputum culture requested/pending. DuoNebs as needed for shortness of breath/wheezing. Mucolytic, IV Solu-Medrol 40 Q8. Currently on baseline supplemental O2 at 2.5 L. Resume home Trelegy. continue to monitor oxygen saturations, keep saturations 90% or greater. 2. Near syncope: Multiple episodes of lightheadedness/near syncope with nausea and vomiting. Reoccurring episode occurred with emergency department workup. Imaging studies obtained as noted above, CTA neck revealing high-grade 75 to 80% stenosis within the proximal left internal carotid artery. Concern of possible correlation. Discussed with cardiology Dr. Ratliff, suspected findin g likely unrelated. Troponins trended-unremarkable. Possibly correlating with underlying respiratory distress-COPD exacerbation as noted above. Continue to monitor. Cardiology noted they will follow-up for further evaluation. Orthostatic vitals requested, fall precautions. classroom monitor. 3. Right thyroid nodule: Incidental finding per imaging as noted above-> right thyroid lobe lesion measuring 2.1 cm. Recommended outpatient follow-up ultrasound. 4. Nausea and vomiting: Patient reports intermittent episodes of nausea and vomiting. Currently without complaint. IV Zofran placed for nausea, as needed. 5. CKD stage III: Creatinine 1.80, BUN 34, GFR 27, per chart review appears renal function had steadily declined. Although most recent creatinine noted 2.20 on June 01, improvement with today's finding. Continue to monitor renal function closely, avoid nephrotoxic medication. Trend with morning labs. 6. HFpEF: Without evidence of hypervolemia, no evidence per imaging. No edema. BNP elevated->1750. Prior BNP elevation per chart review. ECHO 02/12/2025 revealed normal biventricular systolic function, and no significant diastolic dysfunction. LVEF 55%. Resume furosemide 40 mg daily, spironolactone 25 mg, Jardiance 10 mg. Intake output closely, daily weights. 7. HTN/HLD/CAD: Normotensive, will resume home antihypertensive and statin therapy; Plavix 75 mg, Coreg 25 mg twice daily, Lipitor 40 mg nightly, irbesartan 75 mg daily. Full code Healthy heart diet SCD's
[2025-07-26] VITALS (14 sets, daily range): BP systolic 86–128; BP diastolic 41–65; PULSE 60–87; RESP 18–22; TEMP 36.1–36.7; O2SAT 90–99; BMI 21.7
[2025-07-26] MEDS: SODIUM CHLORIDE 3% 15ML NEB 3 ML IH (00:16)
[2025-07-26] MEDS: METHYLPREDNISOLONE SOD SUCC 40MG VIAL 40 MG IV ×2 (03:29→13:05)
[2025-07-26] MEDS: IPRATROPIUM/ALBUTEROL 3 ML NEB IH ×4 (06:43→23:11)
[2025-07-26 06:58] LABS: Hematocrit 31.1 % (37.0-47.0); Immature Granulocytes % 1.0 %; Mean Corpuscular HGB Conc 31.5 g/dL (31.8-35.4); Mean Corpuscular Hemoglobin 28.2 pg (27.0-31.2); Mean Corpuscular Volume 89.6 fl (81-99); Nucleated Red Blood Cells % 0 %; Platelet Count 313 K/mm3 (142-424); Red Blood Count 3.47 M/mm3 (4.20-5.40); Red Cell Distribution Width-SD 47.5 fL; White Blood Count 8.6 K/mm3 (4.8-10.8)
[2025-07-26 07:01] LABS: Albumin Level 3.5 g/dl (3.5-5.0); Chloride 113 mmol/L (98-107); Potassium 4.8 mmoL/L (3.5-5.1); Sodium 141 mmol/L (136-145)
[2025-07-26 07:04] LABS: Alanine Aminotransferase 11 U/L (12-78); Albumin/Globulin Ratio 1.3 (1.1-1.8); Alkaline Phosphatase 103 U/L (38-126); Anion Gap 13.8 mEq/L (5-15); Aspartate Amino Transferase 22 U/L (14-36); Bilirubin,Total 0.3 mg/dl (0.2-1.3); Blood Urea Nitrogen 27 mg/dl (7-17); Carbon Dioxide 19 mmol/L (22.0-30.0); Creatinine Clearance Estimated 25 mL/min (50-200); Creatinine,Serum 1.60 mg/dl (0.52-1.04); Estimated Glomerular Filt Rate 31 ml/min (>60); GFR (African American) 38 ML/MIN (>60); Globulin 2.6 g/dL (1.3-3.2); Total Protein,Serum 6.1 g/dl (6.3-8.2)
[2025-07-26 07:05] LABS: Calcium 9.0 mg/dl (8.4-10.2); Glucose 141 mg/dl (74-100)
[2025-07-26 08:15] LABS: Hemoglobin 9.8 g/dL (12.2-16.2)
[2025-07-26] MEDS: FUROSEMIDE 40 MG TABLET PO (08:58)
[2025-07-26] MEDS: IRBESARTAN 75MG TABLET 75 MG PO (08:58)
[2025-07-26] MEDS: CLOPIDOGREL 75MG TAB 75 MG PO (08:58)
[2025-07-26] MEDS: SPIRONOLACTONE 25MG TABLET 25 MG PO (08:58)
[2025-07-26] MEDS: CARVEDILOL 25MG TABLET 25 MG PO ×2 (08:58→18:08)
[2025-07-26] MEDS: FLUTICASONE/UMECLIDIN/VILANTER 100/62.5/25MCG INHALER 1 PUFF IH (09:22)
[2025-07-26] MEDS: EMPAGLIFLOZIN 10MG TABLET 10 MG PO (09:54)
[2025-07-26] MEDS: RIVASTIGMINE 4.6MG/24HR PATCH 4.6 EACH TD (09:55)
[2025-07-26] MEDS: ESCITALOPRAM 20MG TABLET 20 MG PO (09:55)
[2025-07-26] MEDS: BUSPIRONE HCL 5 MG TABLET PO ×3 (09:55→20:09)
[2025-07-26] MEDS: APAP/HYDROCODONE 325MG/7.5MG TAB 1 TAB PO (10:01)
--- NOTE | 2025-07-26 10:48 | [facility].PHAAMS2 ---
- Antimicrobial Stewardship Review culture & sensitivity review Stewardship interventions: culture & sensitivity review (CURRENTLY ON AZITH, WBC WNL, AFEBRILE, CX PENDING.)
--- NOTE | 2025-07-26 11:55 | EXP.ACUTE.PN ---
Subjective *Date: 07/26/25 *Time: 12:16 Interval history: Feeling large better today but still quite ill and weak. Is on her baseline oxygen of 2 L however feels subjectively short of breath and fatigued. No nausea or vomiting. afebrile this morning. Medical Exam Vital signs and Labs for Last 24 Hours: Vital Signs Temp Pulse Pulse Resp BP BP Pulse Ox 07/26/25 11:22 60 07/26/25 11:22 64 07/26/25 11:22 90 L 07/26/25 08:00 96.9 F L 72 20 128/59 L 96 07/26/25 08:00 70 07/26/25 06:45 07/26/25 06:44 86 07/26/25 06:44 86 07/26/25 06:44 94 L 07/26/25 05:00 07/26/25 04:00 97.9 F 77 18 125/65 96 07/26/25 03:25 75 07/26/25 03:00 07/26/25 01:00 07/26/25 00:16 78 20 07/26/25 00:00 98.0 F 85 18 119/57 L 95 07/25/25 23:00 07/25/25 22:32 97.9 F 87 18 155/76 H 96 07/25/25 22:16 98.8 F 84 19 129/76 07/25/25 21:29 07/25/25 18:00 78 18 119/90 95 07/25/25 17:33 100 07/25/25 17:30 98 H 19 137/91 H 95 07/25/25 17:27 98.6 F 90 20 107/85 L 100 07/25/25 17:27 98.6 F 90 20 107/85 L 100 O2 Del Method O2 Flow Rate 07/26/25 11:22 07/26/25 11:22 07/26/25 11:22 Nasal Cannula 2 07/26/25 08:00 Nasal Cannula 2 07/26/25 08:00 07/26/25 06:45 Nasal Cannula 2 07/26/25 06:44 07/26/25 06:44 07/26/25 06:44 Nasal Cannula 1 07/26/25 05:00 Nasal Cannula 2 07/26/25 04:00 Nasal Cannula 07/26/25 03:25 07/26/25 03:00 Nasal Cannula 2 07/26/25 01:00 Nasal Cannula 2 07/26/25 00:16 07/26/25 00:00 Nasal Cannula 2 07/25/25 23:00 Nasal Cannula 2 07/25/25 22:32 Nasal Cannula 2 07/25/25 22:16 Nasal Cannula 2 07/25/25 21:29 Nasal Cannula 2 07/25/25 18:00 07/25/25 17:33 Nasal Cannula 2 07/25/25 17:30 07/25/25 17:27 Nasal Cannula 2 07/25/25 17:27 Room Air 2 Intake and Output 07/25/25 07/26/25 07/26/25 23:59 07:59 15:59 Intake Total 1250 / 1430 180 / 540 360 / 540 Output Total 200 / 200 Balance 1250 / 1430 -20 / 340 360 / 340 Intake: Intake, Oral Amount 180 / 540 360 / 540 Intake, Total IV Amount 1250 / 1250 0.9 % Sodium Chloride 1000ML 1, 1000 / 1000 000 ml @ 999 mls/hr IV .Q1H1M ONE Rx#:[id number] Azithromycin 500 mg In 0.9 % 250 / 250 Sodium Chloride 250 ml @ 250 mls/hr IV ONCE ONE Rx#: [id number] Output: Output, Urine Amount 200 / 200 Other: Number of Unmeasured Voids 0 Weight 50.984 kg 52.027 kg Patient Weight 07/26/25 23:59 Weight 52.027 kg Laboratory Results - last 24 hr 07/25/25 17:10: WBC 9.9, RBC 3.92 L, Hgb 11.2 L, Hct 35.6 L, MCV 90.8, MCH 28.6, MCHC 31.5 L, RDW 14.5, Plt Count 341, MPV 9.9, Neut % (Auto) 58.2, Lymph % (Auto) 27.1, [place] % (Auto) 9.7 H, Eos % (Auto) 4.1, Baso % (Auto) 0.6, Neut # (Auto) 5.7, Lymph # (Auto) 2.7, [place] # (Auto) 1.0, Eos # (Auto) 0.4, Baso # (Auto) 0.1, PT 13.5 H, INR 1.24 H, Sodium 142, Potassium 4.7, Chloride 110 H, Carbon Dioxide 23, Anion Gap 13.7, BUN 34 H, Creatinine 1.80 H, Estimated Creat Clear 20, Estimated GFR 27 L, Est GFR ( Amer) 33 L, Glucose 118 H, Calcium 9.6, Magnesium 1.7, Total Bilirubin 0.4, AST 26, ALT 14, Alkaline Phosphatase 112, Troponin I < 0.01, NT-Pro-B Natriuret Pep 1750 H, Total Protein 6.8, Albumin 4.0, Globulin 2.8, Albumin/Globulin Ratio 1.4, Lipase 972 H 07/25/25 17:50: VBG pH 7.24 L, VBG pCO2 49.6, VBG pO2 25.2 L, VBG HCO3 20.6 L, VBG Total CO2 22.1 L, VBG O2 Saturation 44.9 L, VBG Base Excess -6.9 L, VBG Lactic Acid 1.7, Chlamy pneumoniae PCR Not detected, Adenovirus (PCR) Not detected, B. pertussis DNA (PCR) Not detected, Coronavirus OC43 (PCR) Not detected, Coronavirus HKU1 (PCR) Not detected, Coronavirus 229E (PCR) Not detected, SARS-CoV-2 (PCR) Not detected, Coronavirus NL63 (PCR) Not detected, Human Metapneumovir PCR Not detected, Influenza A (H1) PCR Not detected, Influ A (H1N1/09) PCR Not detected, Influenza A (H3) PCR Not detected, Influenza Type A (PCR) Not detected, Influenza Type B (PCR) Not detected, M. pneumoniae (PCR) Not detected, Parainfluenza 1 (PCR) Not detected, Parainfluenza 2 (PCR) Not detected, Parainfluenza 3 (PCR) Not detected, Parainfluenza 4 (PCR) Not detected, RSV (PCR) Not detected, Entero/Rhino (PCR) Detected A 07/25/25 20:59: Troponin I < 0.01 07/26/25 06:45: WBC 8.6, RBC 3.47 L, Hgb 9.8 L D, Hct 31.1 L, MCV 89.6, MCH 28.2, MCHC 31.5 L, RDW 14.6, Plt Count 313, MPV 9.7, Neut % (Auto) 83.5 H, Lymph % (Auto) 14.5, [place] % (Auto) 0.9 L, Eos % (Auto) 0.0 L, Baso % (Auto) 0.1, Neut # (Auto) 7.2, Lymph # (Auto) 1.3, [place] # (Auto) 0.1, Eos # (Auto) 0.0, Baso # (Auto) 0.0, Sodium 141, Potassium 4.8, Chloride 113 H, Carbon Dioxide 19 L, Anion Gap 13.8, BUN 27 H, Creatinine 1.60 H, Estimated Creat Clear 25, Estimated GFR 31 L, Est GFR ( Amer) 38 L, Glucose 141 H, Calcium 9.0, Total Bilirubin 0.3, AST 22, ALT 11 L, Alkaline Phosphatase 103, Total Protein 6.1 L, Albumin 3.5 D, Globulin 2.6, Albumin/Globulin Ratio 1.3 I & O for Labs for Last 24 Hours: Intake & Output 07/23/25 07/24/25 07/25/25 07/26/25 23:59 23:59 23:59 23:59 Intake Total 1250 / 1430 540 / 540 Output Total 200 / 200 Balance 1250 / 1430 340 / 340 Weight 50.984 kg 52.027 kg Constitutional: Present no acute distress, thin, chronically ill appearing and cooperative Head: Present atraumatic ENT: Present normal exam Neck: Present normal inspection Respiratory: Present decreased breath sounds, wheezes (Faint end expiratory) and symmetric chest movement; Absent rhonchi, crackles or able to speak in complete sentences Cardiac: Present Reg Rate and Rhythm GI: Present soft and normal bowel sounds; Absent distention or tenderness Rectal (female): Present deferred (female): Present deferred Extremities: Present normal inspection and edema (Bilateral lower extremity) Skin: Present intact Comment:: Scattered bruising Neuro: Present Weakness, alert, awake and oriented x 3 Assessment and Plan *Assessment and plan (1) Acute exacerbation of chronic obstructive airways disease: Status: Acute Category: Medical Code(s): J44.1 - Chronic obstructive pulmonary disease with (acute) exacerbation (2) Acute bronchitis due to Rhinovirus: Status: Acute Category: Medical Code(s): J20.6 - Acute bronchitis due to rhinovirus (3) Enterovirus infection: Status: Acute Category: Medical Code(s): B34.1 - Enterovirus infection, unspecified (4) Near syncope: Status: Acute Category: Medical Code(s): R55 - Syncope and collapse (5) Stenosis of left internal carotid artery: Status: Acute Category: Medical Code(s): I65.22 - Occlusion and stenosis of left carotid artery (6) Nausea & vomiting: Status: Acute Qualifiers: Vomiting type: bilious vomiting Qualified Code(s): R11.14 - Bilious vomiting Category: Medical Code(s): R11.2 - Nausea with vomiting, unspecified (7) Nodule of right lobe of thyroid gland: Status: Acute Category: Medical Code(s): E04.1 - Nontoxic single thyroid nodule (8) CKD (chronic kidney disease) stage 3, GFR 30-59 ml/min: Status: Acute Qualifiers: Chronic kidney disease stage 3 subtype: stage 3b (GFR 30-44) Qualified Code(s): N18.32 - Chronic kidney disease, stage 3b Category: Medical Code(s): N18.30 - Chronic kidney disease, stage 3 unspecified (9) (HFpEF) heart failure with preserved ejection fraction: Status: Acute Qualifiers: Heart failure chronicity: chronic Qualified Code(s): I50.32 - Chronic diastolic (congestive) heart failure Category: Medical Code(s): I50.30 - Unspecified diastolic (congestive) heart failure (10) Hypertension: Status: Acute Qualifiers: Hypertension type: primary hypertension Qualified Code(s): I10 - Essential (primary) hypertension Category: Medical Code(s): I10 - Essential (primary) hypertension (11) Hyperlipidemia: Status: Acute Qualifiers: Hyperlipidemia type: mixed hyperlipidemia Qualified Code(s): E78.2 - Mixed hyperlipidemia Category: Medical Code(s): E78.5 - Hyperlipidemia, unspecified (12) Coronary artery disease: Status: Acute Qualifiers: Associated angina: with other forms of angina Coronary Disease-Associated Artery/Lesion type: [place] artery [place] vs. transplanted heart: [place] heart Qualified Code(s): I25.118 - Atherosclerotic heart disease of [place] coronary artery with other forms of angina pectoris Category: Medical Code(s): I25.10 - Atherosclerotic heart disease of [place] coronary artery without angina pectoris Misael Kan is a 75-year-old female who presented with shortness of breath, fever, chills and congestion, lightheadedness with nausea and vomiting over the last several days. ED workup revealed positive RPP with rhino/enterovirus. CTA chest without acute finding of any embolism. CTA head and neck obtained revealing extensive calcific plaque left carotid bifurcation. High-grade 75-80% stenosis proximal left internal carotid artery. ED provider discussed case with Dr. Ratliff who suspected underlying presyncopal episodes unrelated to carotid stenosis finding, agreed with admission. Will follow-up with patient for further evaluation. IV azithromycin initiated in the emergency department for COPD exacerbation. Blood culture obtained/pending along with sputum culture. Mucolytic, Zofran as needed for nausea, DuoNebs as needed for shortness of breath/wheezing. IV Solu-Medrol, pulmonary hygiene. Trend labs. On baseline oxygen by morning but still feels quite weak. Will observe 24 more hours, anticipate discharge in the morning. Problems addressed as follows: Acute exacerbation of chronic obstructive pulmonary disease/acute bronchitis due to rhinovirus/enterovirus: - RPP positive for entero-/rhinovirus. Continue azithromycin 500 mg IV for 3 days total. Blood and sputum cultures pending. - Continue DuoNebs every 6 hours scheduled. - Transition to 40 mg prednisone daily for 5 days - Currently on baseline supplemental O2 at 2-3 L for goal sats greater 90%. - Resume home Trelegy - White count normal at 8.6. 2. Near syncope: Multiple episodes of lightheadedness/near syncope with nausea and vomiting. Reoccurring episode occurred with emergency department workup. Imaging studies obtained as noted above, CTA neck revealing high-grade 75 to 80% stenosis within the proximal left internal carotid artery. Concern of possible correlation. Discussed with cardiology Dr. Ratliff, suspected finding likely unrelated. Troponins trended-unremarkable. Possibly correlating with underlying respiratory distress-COPD exacerbation as noted above. Continue to monitor. Cardiology noted they will follow-up for further evaluation. Orthostatic vitals requested, fall precautions. front desk monitor. Right thyroid nodule: Incidental finding per imaging as noted above-> right thyroid lobe lesion measuring 2.1 cm. Recommended outpatient follow-up ultrasound. Nausea and vomiting: Patient reports intermittent episodes of nausea and vomiting at home. Appears to be resolved this morning. Tolerating p.o. intake CKD stage III: Creatinine 1. 6 this morning. BUN 27. At baseline. Monitor daily. Repeat CBC, CMP, magnesium ordered for the morning. HFpEF: Without evidence of hypervolemia, no evidence per imaging. No edema. BNP elevated->1750. Prior BNP elevation per chart review. ECHO 02/12/2025 revealed normal biventricular systolic function, and no significant diastolic dysfunction. LVEF 55%. Resume furosemide 40 mg daily, spironolactone 25 mg, Jardiance 10 mg. Intake output closely, daily weights. HTN/HLD/CAD: Normotensive, will resume home antihypertensive and statin therapy; Plavix 75 mg, Coreg 25 mg twice daily, Lipitor 40 mg nightly, irbesartan 75 mg daily. Full code Healthy heart diet SCD's
[2025-07-26] MEDS: MONTELUKAST SODIUM 10MG TAB 10 MG PO (20:09)
[2025-07-26] MEDS: AZITHROMYCIN 500 MG in 0.9 % SODIUM CHLORIDE 250 ML 250 MG IV (20:09)
[2025-07-26] MEDS: ATORVASTATIN 40MG TABLET 40 MG PO (20:09)
[2025-07-27] VITALS (12 sets, daily range): BP systolic 98–111; BP diastolic 47–71; PULSE 65–88; RESP 18–20; TEMP 36.6–37.2; O2SAT 92–98; BMI 21.7
--- NOTE | 2025-07-27 03:55 | PC.NURSE ---
Patient is pleasantly alert and oriented x4. Frail-appearing. She was observed to be resting in bed with eyes closed, respirations even and unlabored on 2 L of oxygen via nasal cannula, and no apparent distress throughout the majority of the night. Patient becomes easily short of breath and exerted during activity and talking. No wheezing heard audibly or upon auscultation. She has not had any complaints of headaches, syncope, or dizziness this shift. No unsteadiness was observed upon ambulation with assistance this shift; however, patient is weak. A shower was taken yesterday evening. On telemetry + continuous pulse ox. Oxygen saturations > 90%. Incentive spirometer usage at bedside. Patient has not had a cough this shift; thus, a sputum sample remains uncollected. Physical assessment (see nursing shift biophysical intervention) performed as appropriately this shift. Scheduled medications administered per OCT. Breathing treatments given by RTs. A female purewick is in place for voiding needs. Soft blood pressures. At this time, the patient is resting in bed with no new needs vocalized. Bed alarm on. Call light within reach. Droplet precautions ongoing for entero/rhinovirus.
--- NOTE | 2025-07-27 07:07 | EXP.DC.SUM ---
General Admission date:: 07/25/25 Discharge date: 07/27/25 HPI HPI HPI: Loreta Santiago is a 75-year-old female past medical history significant for COPD, iron deficiency anemia, HLD, HTN, HFpEF, CAD, supplemental O2 dependence. Patient presents to [facility] secondary to shortness of breath over the last several days. At baseline patient wears 2 to half liter nasal cannula but was requiring 5 L. Patient also endorsed subjective fever with chills, productive cough and lightheadedness. Due to worsening symptoms EMS was notified. On their arrival they noted patient on 5 L with adequate saturations but with accessory muscle use, placed on nonrebreather at 10 L and received DuoNeb and 125 mg IV Solu-Medrol with improvement. While in the emergency department patient was noted to have another presyncopal event. Multiple imagings obtained per ED workup, unremarkable with the exception of CTA neck revealing extensive calcific in the left carotid bifurcation with 75%-80% stenosis proximal left ICA. Patient received IV azithromycin due to underlying COPD exacerbation. Case was also discussed with Dr. Ratliff who would okay with patient admission for further evaluation/treatment. Patient denies chest pain, abdominal pain, urinary symptoms, hemoptysis, diarrhea. Initial ED workup included laboratory studies and imaging. Significant laboratory findings include VBG pH 7.24, pO2 25, HCO3 20.6, total CO2 22, creatinine 1.80, BUN 34, GFR 27, BNP 1750, lipase 972. Respiratory panel pathogen positive for entero/rhinovirus. Imaging studies were personally reviewed by myself; CT abdomen and pelvis revealing rectosigmoid mucosal hyperemia and mild mucosal thickening. Smalll stones or sludge in the gallbladder. Severe calcific plaque in the renal arteries and renal artery stenosis not excluded. Chest CTA no evidence pulmonary emboli, noted hypodense right thyroid lobe nodule. Head CTA no evidence for intracranial hemorrhage, mass lesions or acute stroke. Intracranial vascular calcifications. Mild generalized atrophy. Mild small vessel ischemic change in the periventricular white matter. Mild ventricular prominence. Neck CTA with extensive calcific plaque left carotid bifurcation. High-grade 75-80% stenosis proximal left internal carotid artery. Intracranial vascular calcifications. Multifocal moderate to severe facet arthropathy. Multilevel degenerative disc disease most significant at C5-C6 with disc space narrowing and small disc osteophyte complex.Mild centrilobular emphysema. Low-density right thyroid lobe rim enhancing lesion measuring 2.1 cm. Assessment of patient at bedside she was without acute distress, hemodynamically stable. Exam Data for Last 24 hours Vital signs and Labs for Last 24 Hours: Temp Pulse Resp BP Pulse Ox O2 Del Method O2 Flow Rate 97.9 F 88 18 108/47 L 92 L Nasal Cannula 2 07/27/25 04:00 07/27/25 04:00 07/27/25 04:00 07/27/25 04:00 07/27/25 04:00 07/27/25 06:45 07/27/25 06:45 Laboratory Results - last 24 hr 07/26/25 06:45: WBC 8.6, RBC 3.47 L, Hgb 9.8 L D, Hct 31.1 L, MCV 89.6, MCH 28.2, MCHC 31.5 L, RDW 14.6, Plt Count 313, MPV 9.7, Neut % (Auto) 83.5 H, Lymph % (Auto) 14.5, [place] % (Auto) 0.9 L, Eos % (Auto) 0.0 L, Baso % (Auto) 0.1, Neut # (Auto) 7.2, Lymph # (Auto) 1.3, [place] # (Auto) 0.1, Eos # (Auto) 0.0, Baso # (Auto) 0.0, Sodium 141, Potassium 4.8, Chloride 113 H, Carbon Dioxide 19 L, Anion Gap 13.8, BUN 27 H, Creatinine 1.60 H, Estimated Creat Clear 25, Estimated GFR 31 L, Est GFR ( Amer) 38 L, Glucose 141 H, Calcium 9.0, Total Bilirubin 0.3, AST 22, ALT 11 L, Alkaline Phosphatase 103, Total Protein 6.1 L, Albumin 3.5 D, Globulin 2.6, Albumin/Globulin Ratio 1.3 I & O for Last 24 hours: Intake & Output 07/24/25 07/25/25 07/26/25 07/27/25 23:59 23:59 23:59 23:59 Intake Total 1250 / 1430 1390 / 1745 355 / 355 Output Total 1125 / 1125 Balance 1250 / 1430 265 / 620 355 / 355 Weight 50.984 kg 52.027 kg 52.027 kg Microbiology Reports for the Last 24 Hours: Microbiology 07/26/25 00:30 Blood Blood Culture - Preliminary NO GROWTH AFTER 24 HOURS 07/26/25 00:40 Blood Blood Culture - Preliminary NO GROWTH AFTER 24 HOURS Results Data Completed and Pending Labs on day of discharge: Labs from last 24 hours 07/26/25 06:45 WBC 8.6 RBC 3.47 L Hgb 9.8 L D Hct 31.1 L MCV 89.6 MCH 28.2 MCHC 31.5 L RDW 14.6 Plt Count 313 MPV 9.7 Neut % (Auto) 83.5 H Lymph % (Auto) 14.5 [place] % (Auto) 0.9 L Eos % (Auto) 0.0 L Baso % (Auto) 0.1 Neut # (Auto) 7.2 Lymph # (Auto) 1.3 [place] # (Auto) 0.1 Eos # (Auto) 0.0 Baso # (Auto) 0.0 Sodium 141 Potassium 4.8 Chloride 113 H Carbon Dioxide 19 L Anion Gap 13.8 BUN 27 H Creatinine 1.60 H Estimated Creat Clear 25 Estimated GFR 31 L Est GFR ( Amer) 38 L Glucose 141 H Calcium 9.0 Total Bilirubin 0.3 AST 22 ALT 11 L Alkaline Phosphatase 103 Total Protein 6.1 L Albumin 3.5 D Globulin 2.6 Albumin/Globulin Ratio 1.3 Preliminary micro results at discharge 07/26/25 00:30 Blood Culture - Preliminary Blood NO GROWTH AFTER 24 HOURS 07/26/25 00:40 Blood Culture - Preliminary Blood NO GROWTH AFTER 24 HOURS DS: Diagnosis Discharge Diagnosis (1) Acute exacerbation of chronic obstructive airways disease: Status: Acute Code(s): J44.1 - Chronic obstructive pulmonary disease with (acute) exacerbation (2) Acute bronchitis due to Rhinovirus: Status: Acute Code(s): J20.6 - Acute bronchitis due to rhinovirus (3) Enterovirus infection: Status: Acute Code(s): B34.1 - Enterovirus infection, unspecified (4) Near syncope: Status: Acute Code(s): R55 - Syncope and collapse (5) Stenosis of left internal carotid artery: Status: Acute Code(s): I65.22 - Occlusion and stenosis of left carotid artery (6) Nausea & vomiting: Status: Acute Code(s): R11.2 - Nausea with vomiting, unspecified Qualifiers: Vomiting type: bilious vomiting Qualified Code(s): R11.14 - Bilious vomiting (7) Nodule of right lobe of thyroid gland: Status: Acute Code(s): E04.1 - Nontoxic single thyroid nodule (8) CKD (chronic kidney disease) stage 3, GFR 30-59 ml/min: Status: Acute Code(s): N18.30 - Chronic kidney disease, stage 3 unspecified Qualifiers: Chronic kidney disease stage 3 subtype: stage 3b (GFR 30-44) Qualified Code(s): N18.32 - Chronic kidney disease, stage 3b (9) (HFpEF) heart failure with preserved ejection fraction: Status: Acute Code(s): I50.30 - Unspecified diastolic (congestive) heart failure Qualifiers: Heart failure chronicity: chronic Qualified Code(s): I50.32 - Chronic diastolic (congestive) heart failure (10) Hypertension: Status: Acute Code(s): I10 - Essential (primary) hypertension Qualifiers: Hypertension type: primary hypertension Qualified Code(s): I10 - Essential (primary) hypertension (11) Hyperlipidemia: Status: Acute Code(s): E78.5 - Hyperlipidemia, unspecified Qualifiers: Hyperlipidemia type: mixed hyperlipidemia Qualified Code(s): E78.2 - Mixed hyperlipidemia (12) Coronary artery disease: Status: Acute Code(s): I25.10 - Atherosclerotic heart disease of [place] coronary artery without angina pectoris Qualifiers: Coronary Disease-Associated Artery/Lesion type: [place] artery [place] vs. transplanted heart: [place] heart Associated angina: with other forms of angina Qualified Code(s): I25.118 - Atherosclerotic heart disease of [place] coronary artery with other forms of angina pectoris Meds Home Medications and Allergies Home Medications ?Medication ?Instructions ?Recorded ?Confirmed ?Type meloxicam 15 mg tablet 15 mg PO DAILY 01/07/25 07/25/25 History montelukast 10 mg tablet 10 mg PO HS 01/07/25 07/25/25 History albuterol sulfate 90 mcg/actuation 2 inh inhalation QIDP PRN 02/12/25 07/25/25 History aerosol inhaler shortness of breath or wheezing rivastigmine 4.6 mg/24 hour 4.6 mg topical Q48H 02/14/25 07/25/25 History transdermal patch fluticasone fur. 100 mcg-umeclid 1 inh inhalation DAILY 90 days #60 02/20/25 07/25/25 Rx 62.5 mcg-vilant 25 mcg ea inhalat.powder (Trelegy Ellipta) carvedilol 25 mg tablet 25 mg PO BIDWMEAL 02/25/25 07/25/25 History hydrocodone 7.5 mg-acetaminophen 1 tab PO Q6HP PRN Mild Pain (Scale 02/25/25 07/26/25 History 325 mg tablet Score 1-4) atorvastatin 40 mg tablet 40 mg PO HS 30 days #30 tabs 03/06/25 07/25/25 Rx buspirone 5 mg tablet 5 mg PO TID 30 days #90 tabs 03/06/25 07/25/25 Rx clopidogrel 75 mg tablet 75 mg PO DAILY 30 days #30 tabs 03/06/25 07/25/25 Rx empagliflozin 10 mg tablet 10 mg PO DAILY 30 days #30 tabs 03/06/25 07/25/25 Rx (Jardiance) escitalopram oxalate 20 mg tablet 20 mg PO DAILY 30 days #30 tabs 03/06/25 07/25/25 Rx hydroxyzine pamoate 25 mg capsule 25 mg PO TIDP PRN Anxiety 30 days 03/06/25 07/25/25 Rx #60 caps potassium chloride 20 mEq 20 meq PO DAILY #30 tabs 03/06/25 07/25/25 Rx tablet,extended release(part/cryst) (Klor-Con M) spironolactone 25 mg tablet 25 mg PO DAILY 30 days #30 tabs 03/06/25 07/25/25 Rx furosemide 40 mg tablet (Lasix) 40 mg PO DAILY 07/25/25 07/25/25 History losartan 50 mg tablet 25 mg (1/2 x 50 mg) PO DAILY 30 07/27/25 07/25/25 Rx days #0 tabs New Prescriptions to Start Prescriptions: Allergies Allergy/AdvReac Type Severity Reaction Status Date / Time No Known Allergies Allergy Verified 03/31/25 14:41 Discharge Plan Disposition Patient Disposition: Home, Self-Care Condition: Fair Follow up Plan Follow up with: Indy Lora APRN [Primary Care Provider, Medical] - Enter time for follow up Prescriptions/Medication Reconciliation: Continued meloxicam 15 mg tablet 15 mg PO DAILY montelukast 10 mg tablet 10 mg PO HS Trelegy Ellipta 100-62.5-25 mcg blister with device 1 inh inhalation DAILY 90 Days Qty: 60 3RF furosemide [Lasix] 40 mg tablet 40 mg PO DAILY albuterol sulfate 90 mcg/actuation HFA aerosol inhaler 2 inh inhalation QIDP PRN (Reason: shortness of breath or wheezing) rivastigmine 4.6 mg/24 hour Patch 24 Hour 4.6 mg topical Q48H Rx Instructions: changes every other day due to nausea hydrocodone-acetaminophen 7.5-325 mg tablet 1 tab PO Q6HP PRN (Reason: Mild Pain (Scale Score 1-4)) carvedilol 25 mg tablet 25 mg PO BIDWMEAL buspirone 5 mg Tablet 5 mg PO TID 30 Days Qty: 90 0RF hydroxyzine pamoate 25 mg Capsule 25 mg PO TIDP PRN (Reason: Anxiety) 30 Days Qty: 60 0RF escitalopram oxalate 20 mg Tablet 20 mg PO DAILY 30 Days Qty: 30 0RF potassium chloride [Klor-Con M20] 20 mEq tablet,ER particles/crystals 20 meq PO DAILY Qty: 30 0RF atorvastatin 40 mg Tablet 40 mg PO HS 30 Days Qty: 30 0RF clopidogrel 75 mg Tablet 75 mg PO DAILY 30 Days Qty: 30 0RF spironolactone 25 mg Tablet 25 mg PO DAILY 30 Days Qty: 30 0RF Jardiance 10 mg Tablet 10 mg PO DAILY 30 Days Qty: 30 0RF Changed losartan 50 mg tablet 25 mg PO DAILY 30 Days Qty: 0 0RF Patient Discharge Instructions Patient Instructions: DI for Syncope in Adults (Fainting), DI for Chronic Obstructive Pulmonary Disease, Stop Light COPD, Stop Light Heart Failure Print Language: Turk[place] Providers Primary Care Provider: Indy Lora Admit Provider: Mihai Son Attending Provider: Mihai Son
[2025-07-27 07:21] LABS: Hematocrit 27.8 % (37.0-47.0); Immature Granulocytes % 0.6 %; Mean Corpuscular HGB Conc 30.9 g/dL (31.8-35.4); Mean Corpuscular Hemoglobin 27.9 pg (27.0-31.2); Mean Corpuscular Volume 90.3 fl (81-99); Nucleated Red Blood Cells % 0.1 %; Platelet Count 293 K/mm3 (142-424); Red Blood Count 3.08 M/mm3 (4.20-5.40); Red Cell Distribution Width-SD 47.9 fL; White Blood Count 17.0 K/mm3 (4.8-10.8)
[2025-07-27 07:35] LABS: Albumin Level 3.3 g/dl (3.5-5.0); Chloride 114 mmol/L (98-107); Potassium 4.0 mmoL/L (3.5-5.1); Sodium 140 mmol/L (136-145)
[2025-07-27 07:37] LABS: Blood Urea Nitrogen 29 mg/dl (7-17); Creatinine Clearance Estimated 21 mL/min (50-200); Creatinine,Serum 1.90 mg/dl (0.52-1.04); Estimated Glomerular Filt Rate 26 ml/min (>60); GFR (African American) 31 ML/MIN (>60)
[2025-07-27 07:38] LABS: Alanine Aminotransferase 8 U/L (12-78); Albumin/Globulin Ratio 1.4 (1.1-1.8); Alkaline Phosphatase 83 U/L (38-126); Anion Gap 13.0 mEq/L (5-15); Aspartate Amino Transferase 24 U/L (14-36); Bilirubin,Total 0.3 mg/dl (0.2-1.3); Calcium 8.4 mg/dl (8.4-10.2); Carbon Dioxide 17 mmol/L (22.0-30.0); Globulin 2.4 g/dL (1.3-3.2); Glucose 130 mg/dl (74-100); Magnesium 1.6 mg/dl (1.6-2.3); Total Protein,Serum 5.7 g/dl (6.3-8.2)
[2025-07-27 08:23] LABS: Hemoglobin 8.7 g/dL (12.2-16.2)
[2025-07-27] MEDS: CLOPIDOGREL 75MG TAB 75 MG PO (08:52)
[2025-07-27] MEDS: ESCITALOPRAM 20MG TABLET 20 MG PO (08:52)
[2025-07-27] MEDS: EMPAGLIFLOZIN 10MG TABLET 10 MG PO (08:53)
[2025-07-27] MEDS: CARVEDILOL 25MG TABLET 25 MG PO ×2 (08:53→16:57)
[2025-07-27] MEDS: SPIRONOLACTONE 25MG TABLET 25 MG PO (08:53)
[2025-07-27] MEDS: BUSPIRONE HCL 5 MG TABLET PO ×3 (08:53→20:58)
--- NOTE | 2025-07-27 10:58 | EXP.ACUTE.PN ---
Subjective *Date: 07/27/25 *Time: 12:25 Interval history: Continues to feel quite weak today. Is on baseline oxygen but object short of breath. No fever overnight. White count did jump this morning. Needing assistance to get out of bed. Denies chest pain, nausea or vomiting Medical Exam Vital signs and Labs for Last 24 Hours: Vital Signs Temp Pulse Pulse Pulse Resp BP Pulse Ox 07/27/25 10:30 07/27/25 08:25 07/27/25 08:00 07/27/25 08:00 80 07/27/25 08:00 98.2 F 81 20 111/57 L 98 07/27/25 08:00 07/27/25 06:45 07/27/25 05:00 07/27/25 04:00 70 07/27/25 04:00 97.9 F 88 18 108/47 L 92 L 07/27/25 03:00 07/27/25 01:00 07/27/25 00:20 67 07/27/25 00:05 65 07/27/25 00:00 65 07/26/25 23:48 97.9 F 70 18 100/45 L 98 07/26/25 23:00 07/26/25 21:00 07/26/25 20:00 96 07/26/25 20:00 60 07/26/25 19:53 98.1 F 67 18 107/48 L 95 07/26/25 18:54 07/26/25 18:42 07/26/25 18:42 65 07/26/25 18:41 66 07/26/25 17:00 07/26/25 16:00 98.1 F 68 22 97/41 L 97 07/26/25 16:00 60 07/26/25 13:00 07/26/25 12:00 60 07/26/25 12:00 97.4 F L 78 22 124/62 99 07/26/25 11:22 60 07/26/25 11:22 64 07/26/25 11:22 90 L 07/26/25 11:00 O2 Del Method O2 Flow Rate 07/27/25 10:30 Nasal Cannula 2 07/27/25 08:25 Nasal Cannula 2 07/27/25 08:00 Nasal Cannula 2 07/27/25 08:00 07/27/25 08:00 Nasal Cannula 2 07/27/25 08:00 Nasal Cannula 2 07/27/25 06:45 Nasal Cannula 2 07/27/25 05:00 Nasal Cannula 2 07/27/25 04:00 07/27/25 04:00 Nasal Cannula 2 07/27/25 03:00 Nasal Cannula 2 07/27/25 01:00 Nasal Cannula 2 07/27/25 00:20 07/27/25 00:05 07/27/25 00:00 07/26/25 23:48 Nasal Cannula 2 07/26/25 23:00 Nasal Cannula 2 07/26/25 21:00 Nasal Cannula 2 07/26/25 20:00 Nasal Cannula 2 07/26/25 20:00 07/26/25 19:53 Nasal Cannula 2 07/26/25 18:54 Nasal Cannula 07/26/25 18:42 Nasal Cannula 2 07/26/25 18:42 07/26/25 18:41 07/26/25 17:00 Nasal Cannula 07/26/25 16:00 Nasal Cannula 2 07/26/25 16:00 07/26/25 13:00 Room Air 07/26/25 12:00 07/26/25 12:00 Nasal Cannula 2 07/26/25 11:22 07/26/25 11:22 07/26/25 11:22 Nasal Cannula 2 07/26/25 11:00 Nasal Cannula 2 Intake and Output 07/26/25 07/27/25 07/27/25 23:59 07:59 15:59 Intake Total 610 / 1745 355 / 355 Output Total 925 / 1125 Balance -315 / 620 355 / 355 Intake: Intake, Oral Amount 360 / 1495 355 / 355 Intake, Total IV Amount 250 / 250 Azithromycin 500 mg In 0.9 % 250 / 250 Sodium Chloride 250 ml @ 250 mls/hr IV Q24H [facility] Rx#:[id number] Output: Output, Urine Amount 925 / 1125 Other: Number of Unmeasured Voids 1 Weight 52.027 kg Patient Weight 07/27/25 23:59 Weight 52.027 kg Laboratory Results - last 24 hr 07/27/25 06:40: WBC 17.0 H D, RBC 3.08 L, Hgb 8.7 L D, Hct 27.8 L, MCV 90.3, MCH 27.9, MCHC 30.9 L, RDW 14.6, Plt Count 293, MPV 10.1, Neut % (Auto) 86.5 H, Lymph % (Auto) 8.8 L, [place] % (Auto) 4.0, Eos % (Auto) 0.0 L, Baso % (Auto) 0.1, Neut # (Auto) 14.7 H, Lymph # (Auto) 1.5, [place] # (Auto) 0.7, Eos # (Auto) 0.0, Baso # (Auto) 0.0, Sodium 140, Potassium 4.0, Chloride 114 H, Carbon Dioxide 17 L, Anion Gap 13.0, BUN 29 H, Creatinine 1.90 H, Estimated Creat Clear 21, Estimated GFR 26 L, Est GFR ( Amer) 31 L, Glucose 130 H, Calcium 8.4, Magnesium 1.6, Total Bilirubin 0.3, AST 24, ALT 8 L D, Alkaline Phosphatase 83, Total Protein 5.7 L, Albumin 3.3 L, Globulin 2.4, Albumin/Globulin Ratio 1.4 I & O for Labs for Last 24 Hours: Intake & Output 07/24/25 07/25/25 07/26/25 07/27/25 23:59 23:59 23:59 23:59 Intake Total 1250 / 1430 1390 / 1745 355 / 355 Output Total 1125 / 1125 Balance 1250 / 1430 265 / 620 355 / 355 Weight 50.984 kg 52.027 kg 52.027 kg Microbiology Reports for the Last 24 Hours: Microbiology 07/26/25 00:30 Blood Blood Culture - Preliminary NO GROWTH AFTER 24 HOURS 07/26/25 00:40 Blood Blood Culture - Preliminary NO GROWTH AFTER 24 HOURS Constitutional: Present mild distress, thin, chronically ill appearing and cooperative Head: Present atraumatic ENT: Present normal exam Neck: Present normal inspection Respiratory: Present decreased breath sounds, prolonged expiratory phase, wheezes (Little bit more diffuse today than yesterday.) and symmetric chest movement; Absent rhonchi, crackles or able to speak in complete sentences Cardiac: Present Reg Rate and Rhythm GI: Present soft and normal bowel sounds; Absent distention or tenderness Rectal (female): Present deferred (female): Present deferred Extremities: Present normal inspection and edema (Bilateral lower extremity) Skin: Present intact Comment:: Scattered bruising Neuro: Present Weakness, alert, awake and oriented x 3 Assessment and Plan *Assessment and plan (1) Acute exacerbation of chronic obstructive airways disease: Status: Acute Category: Medical Code(s): J44.1 - Chronic obstructive pulmonary disease with (acute) exacerbation (2) Acute bronchitis due to Rhinovirus: Status: Acute Category: Medical Code(s): J20.6 - Acute bronchitis due to rhinovirus (3) Enterovirus infection: Status: Acute Category: Medical Code(s): B34.1 - Enterovirus infection, unspecified (4) Near syncope: Status: Acute Category: Medical Code(s): R55 - Syncope and collapse (5) Stenosis of left internal carotid artery: Status: Acute Category: Medical Code(s): I65.22 - Occlusion and stenosis of left carotid artery (6) Nausea & vomiting: Status: Acute Qualifiers: Vomiting type: bilious vomiting Qualified Code(s): R11.14 - Bilious vomiting Category: Medical Code(s): R11.2 - Nausea with vomiting, unspecified (7) Nodule of right lobe of thyroid gland: Status: Acute Category: Medical Code(s): E04.1 - Nontoxic single thyroid nodule (8) CKD (chronic kidney disease) stage 3, GFR 30-59 ml/min: Status: Acute Qualifiers: Chronic kidney disease stage 3 subtype: stage 3b (GFR 30-44) Qualified Code(s): N18.32 - Chronic kidney disease, stage 3b Category: Medical Code(s): N18.30 - Chronic kidney disease, stage 3 unspecified (9) (HFpEF) heart failure with preserved ejection fraction: Status: Acute Qualifiers: Heart failure chronicity: chronic Qualified Code(s): I50.32 - Chronic diastolic (congestive) heart failure Category: Medical Code(s): I50.30 - Unspecified diastolic (congestive) heart failure (10) Hypertension: Status: Acute Qualifiers: Hypertension type: primary hypertension Qualified Code(s): I10 - Essential (primary) hypertension Category: Medical Code(s): I10 - Essential (primary) hypertension (11) Hyperlipidemia: Status: Acute Qualifiers: Hyperlipidemia type: mixed hyperlipidemia Qualified Code(s): E78.2 - Mixed hyperlipidemia Category: Medical Code(s): E78.5 - Hyperlipidemia, unspecified (12) Coronary artery disease: Status: Acute Qualifiers: Associated angina: with other forms of angina Coronary Disease-Associated Artery/Lesion type: [place] artery [place] vs. transplanted heart: [place] heart Qualified Code(s): I25.118 - Atherosclerotic heart disease of [place] coronary artery with other forms of angina pectoris Category: Medical Code(s): I25.10 - Atherosclerotic heart disease of [place] coronary artery without angina pectoris Misael Kan is a 75-year-old female who presented with shortness of breath, fever, chills and congestion, lightheadedness with nausea and vomiting over the last several days. ED workup revealed positive RPP with rhino/enterovirus. CTA chest without acute finding of any embolism. CTA head and neck obtained revealing extensive calcific plaque left carotid bifurcation. High-grade 75-80% stenosis proximal left internal carotid artery. ED provider discussed case with Dr. Ratliff who suspected underlying presyncopal episodes unrelated to carotid stenosis finding, agreed with admission. Will follow-up with patient for further evaluation. IV azithromycin initiated in the emergency department for COPD exacerbation. Blood culture obtained/pending along with sputum culture. Mucolytic, Zofran as needed for nausea, DuoNebs as needed for shortness of breath/wheezing. IV Solu-Medrol, pulmonary hygiene. Trend labs. On baseline oxygen by morning but still feels quite weak. Not appropriate to discharge today with jump in white count and persistent weakness. Problems addressed as follows: Acute exacerbation of chronic obstructive pulmonary disease/acute bronchitis due to rhinovirus/enterovirus: - RPP positive for entero-/rhinovirus. Continue azithromycin 500 mg IV for 3 days total. Blood and sputum cultures pending. - Continue DuoNebs every 6 hours scheduled. - continue 40 mg prednisone daily for 5 days - Currently on baseline supplemental O2 at 2-3 L for goal sats greater 90%. - Continue home Trelegy - White count increased to 17 Near syncope: - Multiple episodes of lightheadedness/near syncope with nausea and vomiting. Reoccurring episode occurred with emergency department workup. Imaging studies obtained as noted above, CTA neck revealing high-grade 75 to 80% stenosis within the proximal left internal carotid artery. Concern of possible correlation. Discussed with cardiology Dr. Ratliff from the ER, suspected finding likely unrelated. - Troponins trended-unremarkable. Possibly correlating with underlying respiratory distress-COPD exacerbation as noted above. Continue to monitor. Cardiology noted they will follow-up for further evaluation. Orthostatic vitals requested, fall precautions. alarm security or surveillance monitor. - Holding irbesartan due to soft blood pressures. Allow for permissive hypertension Right thyroid nodule: Incidental finding per imaging as noted above-> right thyroid lobe lesion measuring 2.1 cm. Recommended outpatient follow-up ultrasound. Nausea and vomiting: Patient reports intermittent episodes of nausea and vomiting at home. Appears to be resolved this morning. Tolerating p.o. intake CKD stage III: BUN 29, creatinine 1.9 this morning. Various fluctuation around baseline of 1.5. Repeat CBC, CMP, magnesium ordered for the morning. HFpEF: Without evidence of hypervolemia, no evidence per imaging. No edema. BNP elevated->1750. Prior BNP elevation per chart review. ECHO 02/12/2025 revealed normal biventricular systolic function, and no significant diastolic dysfunction. LVEF 55%. Holding Lasix today. Continue spironolactone 25 mg, Jardiance 10 mg. Intake output closely, daily weights. HTN/HLD/CAD: Normotensive, continue carvedilol 25 mg twice daily. Holding irbesartan. Continue statin therapy; Plavix 75 mg, Coreg 25 mg twice daily, Lipitor 40 mg nightly Full code Healthy heart diet SCD's
--- NOTE | 2025-07-27 11:23 | HMH.PHAAMS2 ---
- Antimicrobial Stewardship Review culture & sensitivity review Stewardship interventions: culture & sensitivity review (CURRENTLY RECEIVING AZITH FOR COPD, WBC UP TO 17.0K TODAY, AFEBRILE, NO GROWTH IN BLD CX.)
[2025-07-27] MEDS: IPRATROPIUM/ALBUTEROL 3 ML NEB IH ×3 (12:01→23:09)
[2025-07-27] MEDS: FLUTICASONE/UMECLIDIN/VILANTER 100/62.5/25MCG INHALER 1 PUFF IH (12:01)
--- NOTE | 2025-07-27 15:40 | PC.NURSE ---
PT IS RESTING IN BED. ALERT AND ORIENTED X4. PT STATES SHE CONTINUES TO FEEL VERY WEAK. LUNG SOUNDS DIMINISHED WITH SCATTERED WHEEZES. ABDOMEN SOFT/NON TENDER WITH ACTIVE BOWEL SOUNDS. NO SWELLING NOTED TO BLE. O2 SATURATION HAS MAINTAINED 90-95% ON 2 L NC. WILL CONTINUE TO MONITOR. WILL CONTINUE TO MONITOR.
--- NOTE | 2025-07-27 17:05 | PC.NURSE ---
PT IS SITTING UP IN THE CHAIR FOR DINNER.
[2025-07-27] MEDS: ATORVASTATIN 40MG TABLET 40 MG PO (20:58)
[2025-07-27] MEDS: AZITHROMYCIN 500 MG in 0.9 % SODIUM CHLORIDE 250 ML 250 MG IV (20:58)
[2025-07-27] MEDS: MONTELUKAST SODIUM 10MG TAB 10 MG PO (20:58)
[2025-07-27] MEDS: APAP/HYDROCODONE 325MG/7.5MG TAB 1 TAB PO (21:15)
[2025-07-27] MEDS: ONDANSETRON 4MG/2ML VIAL 4 MG IV (21:40)
[2025-07-28] VITALS (7 sets, daily range): BP systolic 108–120; BP diastolic 49–64; PULSE 65–78; RESP 18–20; TEMP 36.5–36.7; O2SAT 94–97; BMI 21.5
--- NOTE | 2025-07-28 03:45 | PC.NURSE ---
Patient remains pleasantly alert and oriented x4. She was observed to be resting in bed with eyes closed, respirations even and unlabored on 2 L of oxygen via nasal cannula, and no apparent distress throughout the majority of the night. Patient continues to become easily winded during activity + talking. Stated that she continues to feel weak and ill. Encouraging motivation for ambulating and getting out of bed at appropriate times; she gets up with standby assistance to x1 assistance. Patient did request to have a female purewick replaced for nighttime use. Remains on telemetry + continuous pulse ox. Oxygen saturations > 90%. Patient has had some nonproductive coughing this shift; thus, a sputum sample remains uncollected. Physical assessment (see nursing shift biophysical intervention) performed as appropriately this shift. Scheduled medications were administered per MAR. [place] given per MAR for chronic pain. Zofran (order obtained by A Eva LORENZO this shift) was administered once per MAR due to a nausea complaint yesterday evening. Breathing treatments given by RTs. At this time, the patient is resting in bed with no new needs vocalized. Bed alarm on. Call light within reach. Droplet precautions ongoing for entero/rhinovirus.
[2025-07-28] MEDS: IPRATROPIUM/ALBUTEROL 3 ML NEB IH ×2 (06:17→11:41)
[2025-07-28] MEDS: FLUTICASONE/UMECLIDIN/VILANTER 100/62.5/25MCG INHALER 1 PUFF IH (06:18)
[2025-07-28 06:31] LABS: Hematocrit 26.7 % (37.0-47.0); Hemoglobin 8.4 g/dL (12.2-16.2); Immature Granulocytes % 0.6 %; Mean Corpuscular HGB Conc 31.5 g/dL (31.8-35.4); Mean Corpuscular Hemoglobin 28.3 pg (27.0-31.2); Mean Corpuscular Volume 89.9 fl (81-99); Nucleated Red Blood Cells % 0.2 %; Platelet Count 280 K/mm3 (142-424); Red Blood Count 2.97 M/mm3 (4.20-5.40); Red Cell Distribution Width-SD 47.9 fL; White Blood Count 13.6 K/mm3 (4.8-10.8)
[2025-07-28 06:40] LABS: Albumin Level 3.2 g/dl (3.5-5.0); Chloride 114 mmol/L (98-107); Potassium 4.1 mmoL/L (3.5-5.1); Sodium 142 mmol/L (136-145)
[2025-07-28 06:43] LABS: Alanine Aminotransferase 10 U/L (12-78); Albumin/Globulin Ratio 1.4 (1.1-1.8); Alkaline Phosphatase 79 U/L (38-126); Anion Gap 8.1 mEq/L (5-15); Aspartate Amino Transferase 23 U/L (14-36); Bilirubin,Total 0.3 mg/dl (0.2-1.3); Blood Urea Nitrogen 33 mg/dl (7-17); Carbon Dioxide 24 mmol/L (22.0-30.0); Creatinine Clearance Estimated 21 mL/min (50-200); Creatinine,Serum 1.90 mg/dl (0.52-1.04); Estimated Glomerular Filt Rate 26 ml/min (>60); GFR (African American) 31 ML/MIN (>60); Globulin 2.3 g/dL (1.3-3.2); Total Protein,Serum 5.5 g/dl (6.3-8.2)
[2025-07-28 06:44] LABS: Calcium 8.1 mg/dl (8.4-10.2); Glucose 120 mg/dl (74-100)
[2025-07-28] MEDS: BUSPIRONE HCL 5 MG TABLET PO (08:05)
[2025-07-28] MEDS: CLOPIDOGREL 75MG TAB 75 MG PO (08:05)
[2025-07-28] MEDS: SPIRONOLACTONE 25MG TABLET 25 MG PO (08:05)
[2025-07-28] MEDS: ESCITALOPRAM 20MG TABLET 20 MG PO (08:05)
[2025-07-28] MEDS: EMPAGLIFLOZIN 10MG TABLET 10 MG PO (08:05)
[2025-07-28] MEDS: CARVEDILOL 25MG TABLET 25 MG PO (08:05)
[2025-07-28] MEDS: RIVASTIGMINE 4.6MG/24HR PATCH 1 EACH TD (08:14)
--- NOTE | 2025-07-28 08:36 | HMH.PHAAMS2 ---
- Antimicrobial Stewardship Review culture & sensitivity review Stewardship interventions: culture & sensitivity review, reviewed - no change Comments: PATIENT ON AZITHROMYCIN FOR COPD, BLOOD CX NO GROWTH AT 48 HR, SPUTUM UNCOLLECTED, WBC DOWN TO 13.6K/mm3 FROM 17.0 K/mm3 YESTERDAY, REMAINS AFEBRILE
--- NOTE | 2025-07-28 09:33 | SW/DCPLANNER ---
Addendum entered by Kelsea Larose 07/28/25 12:00: [facility] is able to accept patient. Lion [employer]HA[employer] Original Note: Spoke with patient regarding home health services once she is medically stable and ready for discharge. Patient stated that she is interested in home health and that she used to get home health through [facility] and that is the agency that she would like to go with. I will fax patient's information to [facility] and will update once i hear back if they can accept patient or not. Lion Robles
--- NOTE | 2025-07-28 10:04 | HMH.PTEV ---
Physical Therapy Evaluation Rehab PT IP Evaluation Start: 07/28/25 08:03 Freq: ONCE Status: Active Protocol: Document 07/28/25 09:59 LESTER (Rec: 07/28/25 10:04 LESTER [id number]) Subjective/History History History Per H&P: Loreta Santiago is a 75-year-old female past medical history significant for COPD, iron deficiency anemia, HLD, HTN, HFpEF, CAD, supplemental O2 dependence. Patient presents to [facility] secondary to shortness of breath over the last several days. At baseline patient wears 2 to half liter nasal cannula but was requiring 5 L. Patient also endorsed subjective fever with chills, productive cough and lightheadedness. Due to worsening symptoms EMS was notified. On their arrival they noted patient on 5 L with adequate saturations but with accessory muscle use, placed on nonrebreather at 10 L and received DuoNeb and 125 mg IV Solu-Medrol with improvement. While in the emergency department patient was noted to have another presyncopal event. Multiple imagings obtained per ED workup, unremarkable with the exception of CTA neck revealing extensive calcific in the left carotid bifurcation with 75%-80% stenosis proximal left ICA. Patient received IV azithromycin due to underlying COPD exacerbation. Case was also discussed with Dr. Ratliff who would okay with patient admission for further evaluation/treatment. Patient denies chest pain, abdominal pain, urinary symptoms, hemoptysis, diarrhea. Initial ED workup included laboratory studies and imaging. Significant laboratory findings include VBG pH 7.24, pO2 25, HCO3 20.6, total CO2 22, creatinine 1.80 , BUN 34, GFR 27, BNP 1750, lipase 972. Respiratory panel pathogen positive for entero/rhinovirus. Imaging studies were personally reviewed by myself; CT abdomen and pelvis revealing rectosigmoid mucosal hyperemia and mild mucosal thickening. Smalll stones or sludge in the gallbladder. Severe calcific plaque in the renal arteries and renal artery stenosis not excluded. Chest CTA no evidence pulmonary emboli, noted hypodense right thyroid lobe nodule. Head CTA no evidence for intracranial hemorrhage, mass lesions or acute stroke. Intracranial vascular calcifications. Mild generalized atrophy. Mild small vessel ischemic change in the periventricular white matter. Mild ventricular prominence. Neck CTA with extensive calcific plaque left carotid bifurcation. High-grade 75-80% stenosis proximal left internal carotid artery. Intracranial vascular calcifications. Multifocal moderate to severe facet arthropathy. Multilevel degenerative disc disease most significant at C5-C6 with disc space narrowing and small disc osteophyte complex.Mild centrilobular emphysema. Low-density right thyroid lobe rim enhancing lesion measuring 2.1 cm. Assessment of patient at bedside she was without acute distress, hemodynamically stable. Subjective Subjective PLOF: IND with household level mobility with use of rollator. c/o SOB with mobility at baseline. Does not drive. No reported falls in past 90 days. HOME: Lives with her daughter and grand-daughters in a SS home. ASSIST: Family able to provide assist with mobility tasks if needed. [facility] How much help from another person do you currently need... Turning from your None back to your side while in a flat bed without using bedrails? Moving from lying on None back to sitting on the side of a flat bed without using bedrails? Moving to and from a None bed to a chair ( including a wheelchair)? Standing up from a None chair using your arms? (e.g., wheelchair, bedside chair) Walking in hospital A little room? Climbing 3-5 steps A little with a railing? Mobility Score 22 Mobility Level [facility] Mobility 7 Walk 25 feet or more Mobility Calculator Rehab PT IP Eval Objective Appearance Patient Behavior Appropriate,Cooperative Patient Orientation Person Difficulty following none instructions Speech Pattern Clear Ambulation Patient Able to Yes Ambulate Ambulation Observation IP General Gait Decrease Stride Lngth (R),Decrease Stride Lngth (L) Pattern Observation Ambulation Distance 30 (feet) Ambulation Assistive None Device Ambulation Ability Contact Guard/Hand Hold Balance Ability to Arise Able, uses arms to help Sitting Balance Steady, safe Standing Balance Steady, wide stance Dynamic Sitting Good Balance Ability Dynamic Standing Good Balance Ability Transfers Bed Transfer Ability Independent Sit to Stand Bed Independent Transfer Ability Rehab PT IP prob,goals,plan Problems Date of Evaluation: 07/28/25 Rehab Potential Rehab Potential Innapropriate for Skilled Therapy Discharge Plan PT Discharge Plan Pt appears to be at her baseline in mobility and is not appropriate for skilled acute PT at this time. PT recommending HH to address baseline weakness. Eval Complexity Eval Charge Codes 01193 - Moderate Complexity PHYSICIAN CERTIFICATION: I certify the specified therapy services for Loreta Santiago are required, authorized, and reviewed every 30 days.
--- NOTE | 2025-07-28 10:14 | EXP.PULM.CON ---
History of Present Illness History of present illness: Ms. Santiago is a 75-year-old female history of COPD chronic hypoxic hypercarbic respiratory failure heart failure preserved EF CAD presented today with worsening respiratory distress needing increasing oxygen, send pulmonary was called for further evaluation and management. [facility] Disclaimer: The information contained in this section may have been updated after the patient was seen, as this information can be updated by other users. Medical History (Updated 07/28/25 @ 12:55 by Nora Vega MD) Viral pneumonia Vocal cord dysfunction COPD mixed type ENRICO (acute kidney injury) Elevated troponin Hypocalcemia Hypomagnesemia Thyroid lesion Acidosis Chronic bronchitis Acute exacerbation of CHF (congestive heart failure) Acute exacerbation of chronic obstructive pulmonary disease Ex-smoker Pulmonary cachexia due to chronic obstructive pulmonary disease Acute and chronic respiratory failure with hypercapnia Distressed breathing CAP (community acquired pneumonia) Other forms of dyspnea Pulmonary hypertension Hyperlipidemia Hypertension Dyspnea Atypical angina Chronic respiratory failure with hypoxia Encounter for screening for malignant neoplasm of lung Smoking greater than 30 pack years Pulmonary emphysema COPD exacerbation BMI less than 19,adult (HFpEF) heart failure with preserved ejection fraction Tobacco dependence Dependence on supplemental oxygen Coronary artery disease Iron deficiency anemia COPD (chronic obstructive pulmonary disease) Surgical History Hx of esophagogastroduodenoscopy History of colonoscopy History of hysterectomy History of heart artery stent S/P cardiac catheterization Family History Father Alzheimer disease Mother Stroke Social History Smoking Status: Former smoker tobacco type: cigarettes packs per day: 1 pack-years: 50 years smoked: 50 smoking status stop date: 3 years ago alcohol intake: former substance use type: denies use current occupational status: other Travel in the last 8 weeks?: None Have you lived/traveled outside [place] in past 30 days?: No Contact w/someone who lives/traveled outside [place] past 30 days?: No Exposure to someone with infectious disease in past 14 days?: No Do you have a fever (greater than 100.4 F or 38 C)?: No Have you tested positive for COVID-19?: No Exposed to someone with COVID-19 in past 14 days?: No Do you have a sore throat?: No Do you have a cough?: No Do you have any weakness?: No Do you have any diarrhea?: No Are you experiencing any unusual bleeding?: No Do you have any muscle aches/pain?: No Do you have any abdominal pain?: No Are you experiencing loss of taste or smell?: No Review of Systems Constitutional Constitutional: Reports body ache(s), Reports fatigue, Reports lethargy and Reports weakness Eyes Eyes: Denies eye discharge, Denies dry eyes, Denies irritation and Denies itchy eyes ENT Ears, Nose, Mouth, and Throat: Denies epistaxis, Denies facial pain, Denies lip swelling and Denies throat swelling *Cardiovascular Cardiovascular: Reports dyspnea and Reports dyspnea on exertion *Respiratory Respiratory: Denies change in phlegm color, Reports chest congestion, Reports cough, Reports dyspnea, Reports dyspnea on exertion, Denies excessive phlegm production, Denies hemoptysis, Denies pain on inspiration, Denies pain with cough and Reports wheezing *Gastrointestinal Gastrointestinal: Denies abdominal pain, Denies belching and Denies cramping *Musculoskeletal Musculoskeletal: Reports back pain, Reports myalgias and Reports other (No small joint swelling or Pain) *Neurologic Neurologic: Reports system reviewed and no additional complaints, except as documented, Reports as per HPI and Reports weakness Psychiatric Psychiatric: Denies homicidal ideation and Denies suicidal ideation Endocrine Endocrine: Reports fatigue and Denies heat intolerance Hematologic/Lymphatic Hematologic/Lymphatic: Denies easy bleeding and Denies lymphadenopathy Allergic/Immunologic Allergic/Immunologic: Denies itchy eyes, Denies lip swelling, Denies throat swelling and Reports wheezing Pulmonology Exam Inpatient Vital signs and Labs for Last 24 Hours: Temp Pulse Resp BP Pulse Ox O2 Del Method O2 Flow Rate 98.0 F 68 20 108/49 L 96 Nasal Cannula 2 07/28/25 08:00 07/28/25 08:00 07/28/25 08:00 07/28/25 08:00 07/28/25 08:00 07/28/25 08:00 07/28/25 08:00 Laboratory Results - last 24 hr 07/28/25 06:14: WBC 13.6 H, RBC 2.97 L, Hgb 8.4 L, Hct 26.7 L, MCV 89.9, MCH 28.3, MCHC 31.5 L, RDW 14.6, Plt Count 280, MPV 9.8, Neut % (Auto) 88.4 H, Lymph % (Auto) 6.6 L, [place] % (Auto) 4.3, Eos % (Auto) 0.0 L, Baso % (Auto) 0.1, Neut # (Auto) 12.1 H, Lymph # (Auto) 0.9, [place] # (Auto) 0.6, Eos # (Auto) 0.0, Baso # (Auto) 0.0, Sodium 142, Potassium 4.1, Chloride 114 H, Carbon Dioxide 24, Anion Gap 8.1, BUN 33 H, Creatinine 1.90 H, Estimated Creat Clear 21, Estimated GFR 26 L, Est GFR ( Amer) 31 L, Glucose 120 H, Calcium 8.1 L, Total Bilirubin 0.3, AST 23, ALT 10 L, Alkaline Phosphatase 79, Total Protein 5.5 L, Albumin 3.2 L, Globulin 2.3, Albumin/Globulin Ratio 1.4 I & O for Labs for Last 24 Hours: Intake & Output 07/25/25 07/26/25 07/27/25 07/28/25 23:59 23:59 23:59 23:59 Intake Total 1250 / 1430 1390 / 1745 1105.0 / 1460.0 355 / 355 Output Total 1125 / 1125 0 / 0 250 / 250 Balance 1250 / 1430 265 / 620 1105.0 / 1460.0 105 / 105 Weight 112 lb 6.4 oz 114 lb 11.2 oz 114 lb 11.2 oz 114 lb 3.2 oz Microbiology Reports for the Last 24 Hours: Microbiology 07/26/25 00:40 Blood Blood Culture - Preliminary NO GROWTH AFTER 48 HOURS 07/26/25 00:30 Blood Blood Culture - Preliminary NO GROWTH AFTER 48 HOURS Constitutional: Present moderate distress Head: Present normocephalic and atraumatic ENT: Present normal exam, normal oropharynx and mucous membranes moist Neck: Present normal inspection and full ROM Respiratory: Present prolonged expiratory phase, respiratory distress, wheezes, distant breath sounds, diminished air movement and able to speak in complete sentences Cardiac: Present S1/S2, Tachycardia and radial pulses present GI: Present soft and distention; Absent tenderness or guarding Rectal (female): Present deferred (female): Present deferred Skin: Present intact; Absent cyanosis or jaundice Neuro: Present alert, awake and oriented x 3 Extremities: Present normal inspection; Absent clubbing or cyanosis Psychiatric: Present normal affect and cooperative Meds Home Medications and Allergies Home Medications ?Medication ?Instructions ?Recorded ?Confirmed ?Type meloxicam 15 mg tablet 15 mg PO DAILY 01/07/25 07/25/25 History montelukast 10 mg tablet 10 mg PO HS 01/07/25 07/25/25 History albuterol sulfate 90 mcg/actuation 2 inh inhalation QIDP PRN 02/12/25 07/25/25 History aerosol inhaler shortness of breath or wheezing rivastigmine 4.6 mg/24 hour 4.6 mg topical Q48H 02/14/25 07/25/25 History transdermal patch fluticasone fur. 100 mcg-umeclid 1 inh inhalation DAILY 90 days #60 02/20/25 07/25/25 Rx 62.5 mcg-vilant 25 mcg ea inhalat.powder (Trelegy Ellipta) carvedilol 25 mg tablet 25 mg PO BIDWMEAL 02/25/25 07/25/25 History hydrocodone 7.5 mg-acetaminophen 1 tab PO Q6HP PRN Mild Pain (Scale 02/25/25 07/26/25 History 325 mg tablet Score 1-4) atorvastatin 40 mg tablet 40 mg PO HS 30 days #30 tabs 03/06/25 07/25/25 Rx buspirone 5 mg tablet 5 mg PO TID 30 days #90 tabs 03/06/25 07/25/25 Rx clopidogrel 75 mg tablet 75 mg PO DAILY 30 days #30 tabs 03/06/25 07/25/25 Rx empagliflozin 10 mg tablet 10 mg PO DAILY 30 days #30 tabs 03/06/25 07/25/25 Rx (Jardiance) escitalopram oxalate 20 mg tablet 20 mg PO DAILY 30 days #30 tabs 03/06/25 07/25/25 Rx hydroxyzine pamoate 25 mg capsule 25 mg PO TIDP PRN Anxiety 30 days 03/06/25 07/25/25 Rx #60 caps potassium chloride 20 mEq 20 meq PO DAILY #30 tabs 03/06/25 07/25/25 Rx tablet,extended release(part/cryst) (Klor-Con M) spironolactone 25 mg tablet 25 mg PO DAILY 30 days #30 tabs 03/06/25 07/25/25 Rx furosemide 40 mg tablet (Lasix) 40 mg PO DAILY 07/25/25 07/25/25 History losartan 50 mg tablet 25 mg (1/2 x 50 mg) PO DAILY 30 07/27/25 07/25/25 Rx days #0 tabs New Prescriptions to Start Prescriptions: Allergies Allergy/AdvReac Type Severity Reaction Status Date / Time No Known Allergies Allergy Verified 03/31/25 14:41 Results Laboratory Findings 07/28/25 06:14 07/28/25 06:14 PT/INR, D-dimer PT 13.5 seconds (10.1-12.5) H 07/25/25 17:10 INR 1.24 (0.9-1.1) H 07/25/25 17:10 Abnormal lab findings: Abnormal Labs 07/25/25 07/25/25 07/26/25 17:10 17:50 06:45 WBC RBC 3.92 L 3.47 L Hgb 11.2 L 9.8 L D Hct 35.6 L 31.1 L MCHC 31.5 L 31.5 L Neut % (Auto) 83.5 H Lymph % (Auto) [place] % (Auto) 9.7 H 0.9 L Eos % (Auto) 0.0 L Neut # (Auto) PT 13.5 H INR 1.24 H VBG pH 7.24 L VBG pO2 25.2 L VBG HCO3 20.6 L VBG Total CO2 22.1 L VBG O2 Saturation 44.9 L VBG Base Excess -6.9 L Chloride 110 H 113 H Carbon Dioxide 19 L BUN 34 H 27 H Creatinine 1.80 H 1.60 H Estimated GFR 27 L 31 L Est GFR ( Amer) 33 L 38 L Glucose 118 H 141 H Calcium ALT 11 L NT-Pro-B Natriuret Pep 1750 H Total Protein 6.1 L Albumin Lipase 972 H Entero/Rhino (PCR) Detected A 07/27/25 07/28/25 06:40 06:14 WBC 17.0 H D 13.6 H RBC 3.08 L 2.97 L Hgb 8.7 L D 8.4 L Hct 27.8 L 26.7 L MCHC 30.9 L 31.5 L Neut % (Auto) 86.5 H 88.4 H Lymph % (Auto) 8.8 L 6.6 L [place] % (Auto) Eos % (Auto) 0.0 L 0.0 L Neut # (Auto) 14.7 H 12.1 H PT INR VBG pH VBG pO2 VBG HCO3 VBG Total CO2 VBG O2 Saturation VBG Base Excess Chloride 114 H 114 H Carbon Dioxide 17 L BUN 29 H 33 H Creatinine 1.90 H 1.90 H Estimated GFR 26 L 26 L Est GFR ( Amer) 31 L 31 L Glucose 130 H 120 H Calcium 8.1 L ALT 8 L D 10 L NT-Pro-B Natriuret Pep Total Protein 5.7 L 5.5 L Albumin 3.3 L 3.2 L Lipase Entero/Rhino (PCR) Assessment and Plan *Assessment and plan (1) Viral pneumonia: Status: Acute Category: Medical Code(s): J12.9 - Viral pneumonia, unspecified (2) COPD exacerbation: Status: Acute Category: Medical Code(s): J44.1 - Chronic obstructive pulmonary disease with (acute) exacerbation Plan Ms. Santiago is a 75-year-old female history of COPD chronic hypoxic hypercarbic respiratory failure heart failure preserved EF CAD presented today with worsening respiratory distress needing increasing oxygen, send pulmonary was called for further evaluation and management. CTA upon admission no dense consolidative/airspace changes. Mild neutrophilic prominent leukocytosis improving. Afebrile. Hemodynamically stable. No effusions noted. Respiratory viral PCR panel positive for entero and rhinovirus. Currently being managed for COPD exacerbation nebulization therapy steroids and azithromycin . Blood gas upon admission hypercarbic respiratory failure pH of 7.28 and pCO2 of 55.0 improved with subsequent blood gas showing 7.24 and 49.6 concerning for concomitant respiratory acidosis. Blood cultures no growth at 48 hours. On examination moderate respiratory distress. Decreased breath sounds bilateral lung curiel. Saturating greater than 90% on her baseline oxygen supplementation. Repeat ABG improving metabolic acidosis with a pH at 7.36 and pCO2 34.4. ENRICO on CKD. Plan: DuoNebs every 6 hours along with Pulmicort every 12 scheduled. Can be weaned to Trelegy 100 inhaler upon discharge. Continue Azithromycin and prednisone 40 mg for COPD exacerbation Continue oxygen supplementation to maintain O2 saturation goal of 90% and above # Thank you for involving pulmonary in this patient care. Will continue to follow.
--- NOTE | 2025-07-28 11:01 | HMH.OTEV ---
OT Evaluation Rehab OT IP Evaluation Start: 07/28/25 08:03 Freq: ONCE Status: Active Protocol: Document 07/28/25 10:58 [facility] (Rec: 07/28/25 11:00 [facility] [id number]) Rehab OT IP Assessment Subjective History Per H&P: Loreta Santiago is a 75-year-old female past medical history significant for COPD, iron deficiency anemia, HLD, HTN, HFpEF, CAD, supplemental O2 dependence. [facility] secondary to shortness of breath over the last several days. At baseline patient wears 2 to half liter nasal cannula but was requiring 5 L. Patient also endorsed subjective fever with chills, productive cough and lightheadedness. Due to worsening symptoms EMS was notified. On their arrival they noted patient on 5 L with adequate saturations but with accessory muscle use, placed on nonrebreather at 10 L and received DuoNeb and 125 mg IV Solu-Medrol with improvement. While in the emergency department patient was noted to have another presyncopal event. Multiple imagings obtained per ED workup, unremarkable with the exception of CTA neck revealing extensive calcific in the left carotid bifurcation with 75%-80% stenosis proximal left ICA. Patient received IV azithromycin due to underlying COPD exacerbation. Case was also discussed with Dr. Ratliff who would okay with patient admission for further evaluation/treatment. Patient denies chest pain, abdominal pain, urinary symptoms, hemoptysis, diarrhea. Initial ED workup included laboratory studies and imaging. Significant laboratory findings include VBG pH 7.24, pO2 25, HCO3 20.6, total CO2 22, creatinine 1.80 , BUN 34, GFR 27, BNP 1750, lipase 972. Respiratory panel pathogen positive for entero/rhinovirus. Imaging studies were personally reviewed by myself; CT abdomen and pelvis revealing rectosigmoid mucosal hyperemia and mild mucosal thickening. Smalll stones or sludge in the gallbladder. Severe calcific plaque in the renal arteries and renal artery stenosis not excluded. Chest CTA no evidence pulmonary emboli, noted hypodense right thyroid lobe nodule. Head CTA no evidence for intracranial hemorrhage, mass lesions or acute stroke. Intracranial vascular calcifications. Mild generalized atrophy. Mild small vessel ischemic change in the periventricular white matter. Mild ventricular prominence. Neck CTA with extensive calcific plaque left carotid bifurcation. High-grade 75-80% stenosis proximal left internal carotid artery. Intracranial vascular calcifications. Multifocal moderate to severe facet arthropathy. Multilevel degenerative disc disease most significant at C5-C6 with disc space narrowing and small disc osteophyte complex.Mild centrilobular emphysema. Low-density right thyroid lobe rim enhancing lesion measuring 2.1 cm. Assessment of patient at bedside she was without acute distress, hemodynamically stable. Subjective PLOF: IND with household level functional transfers with use of rollator. c/o SOB with mobility at baseline . She is on oxygen at all times. Pt claims she is independent with all ADLs. Pt is dependent upon family for all IADLS. Does not drive. No reported falls in past 90 days. HOME: Lives with her daughter and grand-daughters in a SS home. ASSIST: Family able to provide assist with mobility tasks if needed. Objective Patient Orientation Person,Place,Birthday Right Upper WFL Extremity Gross ROM Left Upper Extremity WFL Gross ROM Bed Mobility bed mobility-scooting,bed mobility - supine/sit Assist Level Supervision/Stand by Transfer Training Sit/Stand Transfer Assist Level Supervision/Stand by Chair Transfer Supervision/Stand by Ability Chair Transfer Sit to/from Ambulatory Technique Chair Transfer Rolling Walker Assistive Devices Lower Body Dressing Standby Assistance Ability Rehab OT IP prob,goals,plan Problems Date of Evaluation: 07/28/25 Rehab Potential Rehab Potential Innapropriate for Skilled Therapy Discharge Plan OT Discharge Plan Pt appears to be at her baseline with functional transfers and ADL independence. Pt can return home with family assistance as needed. Therapist recommends OT evaluation for any home environment adaptations needed. Eval Complexity Eval Charge Codes 81094 - Moderate Complexity PHYSICIAN CERTIFICATION: I certify the specified therapy services for Loreta Santiago are required, authorized, and reviewed every 30 days.
[2025-07-28 11:44] LABS: ABG HCO3 18.9 mmhg (22.0-26.0); ABG PCO2 34.4 mmhg (35.0-45.0); ABG PH 7.36 mmol/L (7.35-7.45); ABG PO2 76.7 mmhg (80-100); ABG TCO2 19.9 mmhg (23-27)
[2025-07-28 11:48] LABS: Source Right Radial
--- NOTE | 2025-07-28 12:58 | P.DS_ITS ---
<Statement entered by Juan Manuel Stringer MD - 07/28/25 14:35> Rounded on patient after nurse practitioner. Personally examined and interviewed patient. Agree with exam findings and care plan as documented. General Admission date:: 07/25/25 Discharge date: 07/28/25 HPI HPI HPI: Loreta Santiago is a 75-year-old female past medical history significant for COPD, iron deficiency anemia, HLD, HTN, HFpEF, CAD, supplemental O2 dependence. Patient presents to [facility] secondary to shortness of breath over the last several days. At baseline patient wears 2 to half liter nasal ca nnula but was requiring 5 L. Patient also endorsed subjective fever with chills, productive cough and lightheadedness. Due to worsening symptoms EMS was notified. On their arrival they noted patient on 5 L with adequate saturations but with accessory muscle use, placed on nonrebreather at 10 L and received DuoNeb and 125 mg IV Solu-Medrol with improvement. While in the emergency department patient was noted to have another presyncopal event. Multiple imagings obtained per ED workup, unremarkable with the exception of CTA neck revealing extensive calcific in the left carotid bifurcation with 75%-80% stenosis proximal left ICA. Patient received IV azithromycin due to underlying COPD exacerbation. Case was also discussed with Dr. Ratliff who would okay with patient admission for further evaluation/treatment. Patient denies chest pain, abdominal pain, urinary symptoms, hemoptysis, diarrhea. Initial ED workup included laboratory studies and imaging. Significant laboratory findings include VBG pH 7.24, pO2 25, HCO3 20.6, total CO2 22, creatinine 1.80, BUN 34, GFR 27, BNP 1750, lipase 972. Respiratory panel pathogen positive for entero/rhinovirus. Imaging studies were personally reviewed by myself; CT abdomen and pelvis revealing rectosigmoid mucosal hyperemia and mild mucosal thickening. Smalll stones or sludge in the gallbladder. Severe calcific plaque in the renal arteries and renal artery stenosis not excluded. Chest CTA no evidence pulmonary emboli, noted hypodense right thyroid lobe nodule. Head CTA no evidence for intracranial hemorrhage, mass lesions or acute stroke. Intracranial vascular calcifications. Mild generalized atrophy. Mild small vessel ischemic change in the periventricular white matter. Mild ventricular prominence. Neck CTA with extensive calcific plaque left carotid bifurcation. High-grade 75-80% stenosis proximal left internal carotid artery. Intracranial vascular calcifications. Multifocal moderate to severe facet arthropathy. Multilevel degenerative disc disease most significant at C5-C6 with disc space narrowing and small disc osteophyte complex.Mild centrilobular emphysema. Low-density right thyroid lobe rim enhancing lesion measuring 2.1 cm. Assessment of patient at bedside she was without acute distress, hemodynamically stable. Hospital Course Hospital Course Hospital Course: Ms. Loreta Santiago is a 75-year-old female who presented to the emergency department on 07/25/2025 with complaints of shortness of breath, fever, chills, congestion, lightheadedness with nausea and vomiting over the previous few days. Workup in the emergency department was significant for RPP with rhino/enterovirus. CTA of the chest was obtained and was without acute findings. CT of head and neck were also obtained revealing extensive calcific plaque left carotid bifurcation. High-grade stenosis of 75-80% of the proximal left ICA. This was discussed with Dr. Ratliff who suspected underlying presyncopal episodes unrelated to carotid stenosis findings, agreed with admission. Patient was initiated on azithromycin IV for her COPD exacerbation, blood cultures obtained and have shown no growth during admission. Patient was unable to provide sputum culture during admission. Patient initially given IV Solu-Medrol and transition to prednisone 40 mg daily. Patient endorses generalized weakness and fatigue, and increased shortness of air. Initially on 4-5 L nasal cannula, baseline 2 L nasal cannula. Eventually weaned to 2 L nasal cannula with O2 saturation greater than 95%. Patient was given DuoNebs as needed for SOA/wheezing. Patient uses DuoNebs on a regular basis at home. Along with a Trelegy and 100 inhaler daily. Patient was admitted to hospital medicine service with pulmonology consult, hospital course as follows: #Acute COPD exacerbation #Rhinovirus/enterovirus #Acute on chronic respiratory failure with hypoxia and hypercapnia ?RPP positive for entero-/rhinovirus. Patient received azithromycin 500 mg IV, completed 2 days of IV antibiotics, discharged home with azithromycin 250 mg x 2 more days to complete azithromycin course. Blood culture showed no growth after 48 hours. Patient received DuoNebs every 6 hours scheduled, patient has nebulizer at home instructed patient to continue nebulizer treatments regularly for SOA/wheezing. ? Pulmonology was consulted and recommended completing azithromycin course with the addition of prednisone 40 mg to complete a 5-day total course, patient discharged home with 3 days to complete the 5-day total course. ? Patient day of discharge on 2 L nasal cannula with O2 saturation greater than 95%. Patient should continue Trelegy 100 inhaler daily. ?Initial WBC was unremarkable, did increase to 17, in the setting of steroids. Day of discharge WBC 13. #Near syncope/lightheadedness ? Patient complained of multiple episodes of lightheadedness/near syncope with nausea/vomiting. Likely related to her rhino/enterovirus. Imaging studies obtained as noted above, CT of neck revealing a high-grade 75 to 80% stenosis of the proximal left ICA. This was discussed with cardiology who feels that is unrelated to syncopal events but rather incidental finding. Troponins trended and remained unremarkable. No further syncopal events occurred during admission. Orthostatic vitals unremarkable, ekg monitor within normal limits. Decrease losartan from 50 mg daily to 25 mg daily at discharge. #Right thyroid nodule: Incidental finding per imaging as noted above, right thyroid lobe lesion measuring 2.1 cm. Patient should have follow-up ultrasound. #CKD, stage III: Patient initial creatinine 1.9, trending downward to baseline of 1.5. Day of discharge creatinine 1.9. Patient appears to have fluctuating creatinine between 1.5?2. Patient has known CKD. HFpEF: Patient does not appear hypervolemic, no edema, no crackles upon auscultation of lungs. BNP elevated at 1750, prior BNP elevation per chart review noted. Echo 02/12/2025 revealed normal biventricular systolic function, LVEF of 55%. Patient should continue Lasix at discharge, continue spironolactone 25 mg daily, Jardiance 10 mg daily. #HTN/HLD/CAD: Patient has remained normotensive during admission, continue statin therapy, continue Plavix 75 mg, Coreg 25 mg twice daily, Lipitor 40 mg nightly. #Acute on chronic anemia: Patient has known acute on chronic anemia, likely related to her kidney disease. Hemoglobin has remained stable between 8?9. Day of discharge 8.4. Patient's vital signs remained stable, nontachycardic. #Anxiety: Continue hydroxyzine 25 mg 3 times daily as needed, BuSpar 5 mg 3 ti mes daily, and Lexapro 20 mg daily for increased anxiety. Total time spent on discharge 33 minutes in counseling, documentation, chart review, and direct care with patient. Exam Data for Last 24 hours Vital signs and Labs for Last 24 Hours: Temp Pulse Resp BP Pulse Ox O2 Del Method O2 Flow Rate 97.7 F 78 20 120/64 94 L Nasal Cannula 2 07/28/25 11:51 07/28/25 11:51 07/28/25 11:51 07/28/25 11:51 07/28/25 11:51 07/28/25 11:51 07/28/25 11:51 Laboratory Results - last 24 hr 07/28/25 06:14: WBC 13.6 H, RBC 2.97 L, Hgb 8.4 L, Hct 26.7 L, MCV 89.9, MCH 28.3, MCHC 31.5 L, RDW 14.6, Plt Count 280, MPV 9.8, Neut % (Auto) 88.4 H, Lymph % (Auto) 6.6 L, [place] % (Auto) 4.3, Eos % (Auto) 0.0 L, Baso % (Auto) 0.1, Neut # (Auto) 12.1 H, Lymph # (Auto) 0.9, [place] # (Auto) 0.6, Eos # (Auto) 0.0, Baso # (Auto) 0.0, Sodium 142, Potassium 4.1, Chloride 114 H, Carbon Dioxide 24, Anion Gap 8.1, BUN 33 H, Creatinine 1.90 H, Estimated Creat Clear 21, Estimated GFR 26 L, Est GFR ( Amer) 31 L, Glucose 120 H, Calcium 8.1 L, Total Bilirubin 0.3, AST 23, ALT 10 L, Alkaline Phosphatase 79, Total Protein 5.5 L, Albumin 3.2 L, Globulin 2.3, Albumin/Globulin Ratio 1.4 07/28/25 11:45: Specimen Source Right radial, O2 % 28, ABG pH 7.36, ABG pCO2 34.4 L, ABG pO2 76.7 L, ABG HCO3 18.9 L, ABG Total CO2 19.9 L, ABG O2 Saturation 95, ABG Base Excess -6.6 L, Arturo Test aceptable I & O for Last 24 hours: Intake & Output 07/25/25 07/26/25 07/27/25 07/28/25 23:59 23:59 23:59 23:59 Intake Total 1250 / 1430 1390 / 1745 1105.0 / 1460.0 355 / 355 Output Total 1125 / 1125 0 / 0 250 / 250 Balance 1250 / 1430 265 / 620 1105.0 / 1460.0 105 / 105 Weight 50.984 kg 52.027 kg 52.027 kg 51.8 kg Microbiology Reports for the Last 24 Hours: Microbiology 07/26/25 00:40 Blood Blood Culture - Preliminary NO GROWTH AFTER 48 HOURS 07/26/25 00:30 Blood Blood Culture - Preliminary NO GROWTH AFTER 48 HOURS Constitutional Constitutional: no acute distress, thin and cooperative *Routine HEENT Exam Head: Present normocephalic Eye: Present EOMI and PERRL ENT: Present mucous membranes moist *Routine Neck Exam Neck: Present supple; Absent lymphadenopathy *Routine Respiratory Exam Respiratory: Present rhonchi, normal respiratory effort, able to speak in complete sentences and symmetric chest movement *Routine Cardiovascular Exam Cardiovascular: Present RRR; Absent murmur *Routine Abdominal Exam Abdominal: Present soft and normoactive bowel sounds; Absent tenderness *Routine Rectal Exam Patient deferred: visual exam *Routine Exam Patient deferred: external exam *Routine Extremities Exam Extremities: Absent cyanosis, clubbing or edema *Routine Skin Exam Skin: Present intact, dry and warm; Absent rash *Routine Neurological Exam Neurological: Present alert, oriented X3 and normal speech Results Data Completed and Pending Labs on day of discharge: Labs from last 24 hours 07/28/25 07/28/25 11:45 06:14 WBC 13.6 H RBC 2.97 L Hgb 8.4 L Hct 26.7 L MCV 89.9 MCH 28.3 MCHC 31.5 L RDW 14.6 Plt Count 280 MPV 9.8 Neut % (Auto) 88.4 H Lymph % (Auto) 6.6 L [place] % (Auto) 4.3 Eos % (Auto) 0.0 L Baso % (Auto) 0.1 Neut # (Auto) 12.1 H Lymph # (Auto) 0.9 [place] # (Auto) 0.6 Eos # (Auto) 0.0 Baso # (Auto) 0.0 Specimen Source Right radial O2 % 28 ABG pH 7.36 ABG pCO2 34.4 L ABG pO2 76.7 L ABG HCO3 18.9 L ABG Total CO2 19.9 L ABG O2 Saturation 95 ABG Base Excess -6.6 L Arturo Test aceptable Sodium 142 Potassium 4.1 Chloride 114 H Carbon Dioxide 24 Anion Gap 8.1 BUN 33 H Creatinine 1.90 H Estimated Creat Clear 21 Estimated GFR 26 L Est GFR ( Amer) 31 L Glucose 120 H Calcium 8.1 L Total Bilirubin 0.3 AST 23 ALT 10 L Alkaline Phosphatase 79 Total Protein 5.5 L Albumin 3.2 L Globulin 2.3 Albumin/Globulin Ratio 1.4 Preliminary micro results at discharge 07/26/25 00:40 Blood Culture - Preliminary Blood NO GROWTH AFTER 48 HOURS 07/26/25 00:30 Blood Culture - Preliminary Blood NO GROWTH AFTER 48 HOURS DS: Diagnosis Discharge Diagnosis (1) Acute exacerbation of chronic obstructive airways disease: Status: Acute Code(s): J44.1 - Chronic obstructive pulmonary disease with (acute) exacerbation (2) Acute bronchitis due to Rhinovirus: Status: Acute Code(s): J20.6 - Acute bronchitis due to rhinovirus (3) Enterovirus infection: Status: Acute Code(s): B34.1 - Enterovirus infection, unspecified (4) Near syncope: Status: Acute Code(s): R55 - Syncope and collapse (5) Stenosis of left internal carotid artery: Status: Acute Code(s): I65.22 - Occlusion and stenosis of left carotid artery (6) Nausea & vomiting: Status: Acute Code(s): R11.2 - Nausea with vomiting, unspecified Qualifiers: Vomiting type: bilious vomiting Qualified Code(s): R11.14 - Bilious vomiting (7) Nodule of right lobe of thyroid gland: Status: Acute Code(s): E04.1 - Nontoxic single thyroid nodule (8) CKD (chronic kidney disease) stage 3, GFR 30-59 ml/min: Status: Acute Code(s): N18.30 - Chronic kidney disease, stage 3 unspecified Qualifiers: Chronic kidney disease stage 3 subtype: stage 3b (GFR 30-44) Qualified Code(s): N18.32 - Chronic kidney disease, stage 3b (9) (HFpEF) heart failure with preserved ejection fraction: Status: Acute Code(s): I50.30 - Unspecified diastolic (congestive) heart failure Qualifiers: Heart failure chronicity: chronic Qualified Code(s): I50.32 - Chronic diastolic (congestive) heart failure (10) Hypertension: Status: Acute Code(s): I10 - Essential (primary) hypertension Qualifiers: Hypertension type: primary hypertension Qualified Code(s): I10 - Essential (primary) hypertension (11) Hyperlipidemia: Status: Acute Code(s): E78.5 - Hyperlipidemia, unspecified Qualifiers: Hyperlipidemia type: mixed hyperlipidemia Qualified Code(s): E78.2 - Mixed hyperlipidemia (12) Coronary artery disease: Status: Acute Code(s): I25.10 - Atherosclerotic heart disease of [place] coronary artery without angina pectoris Qualifiers: Associated angina: with other forms of angina Coronary Disease- Associated Artery/Lesion type: [place] artery [place] vs. transplanted heart: [place] heart Qualified Code(s): I25.118 - Atherosclerotic heart disease of [place] coronary artery with other forms of angina pectoris (13) Anemia: Status: Acute Code(s): D64.9 - Anemia, unspecified Qualifiers: Anemia type: iron deficiency Iron deficiency anemia type: chronic blood loss Qualified Code(s): D50.0 - Iron deficiency anemia secondary to blood loss (chronic) Meds Home Medications and Allergies Home Medications ?Medication ?Instructions ?Recorded ?Confirmed ?Type meloxicam 15 mg tablet 15 mg PO DAILY 01/07/2507/07 History montelukast 10 mg tablet 10 mg PO HS 01/07/25 5 History albuterol sulfate 90 mcg/actuation 2 inh inhalation QI DP PRN 02/12/25 07/25/25 History aerosol inhaler shortness of breath or wheez ing rivastigmine 4.6 mg/24 hour 4.6 mg topical Q48H 07/25/25 History transdermal patch fluticasone fur. 100 mcg-umeclid 1 inh inhalation LINDSAY Y 90 days #60 02/20/25 07/25/25 Rx 62.5 mcg-vilant 25 mcg ea inhalat.powder (Trelegy Ellipta) carvedilol 25 mg tablet 25 mg PO BIDWMEAL 02/25/25 1 09/25/24 History hydrocodone 7.5 mg-acetaminophen 1 tab PO Q6HP PRN Mil d Pain (Scale 02/25/25 07/26/25 History 325 mg tablet Score 1-4) atorvastatin 40 mg tablet 40 mg PO HS 30 days #30 tabs 03/06/25 07/25/25 Rx buspirone 5 mg tablet 5 mg PO TID 30 days #90 tabs 03/06/25 07/25/25 Rx clopidogrel 75 mg tablet 75 mg PO DAILY 30 days #30 t abs 03/06/25 07/25/25 Rx empagliflozin 10 mg tablet 10 mg PO DAILY 30 days #30 tabs 03/06/25 07/25/25 Rx (Jardiance) escitalopram oxalate 20 mg tablet 20 mg PO DAILY 30 da ys #30 tabs 03/06/25 07/25/25 Rx hydroxyzine pamoate 25 mg capsule 25 mg PO TIDP PRN An xiety 30 days 03/06/25 07/25/25 Rx #60 caps potassium chloride 20 mEq 20 meq PO DAILY #30 tabs 07/25/25 Rx tablet,extended release(part/cryst) (Klor-Con M) spironolactone 25 mg tablet 25 mg PO DAILY 30 days #30 tabs 03/06/25 07/25/25 Rx furosemide 40 mg tablet (Lasix) 40 mg PO DAILY 5 07/25/25 History losartan 50 mg tablet 25 mg (1/2 x 50 mg) PO DAILY 30 07/27/25 07/25/25 Rx days #0 tabs azithromycin 250 mg tablet 250 mg PO DAILY #2 tabs Rx prednisone 20 mg tablet 40 mg (2 x 20 mg) PO DAILY 3 days 07/28/25 Rx #6 tabs New Prescriptions to Start Prescriptions: Tita Mason prednisone Tita Rodriguez Allergies Allergy/AdvReac Type Severity Reaction Status Date / Time No Known Allergies Allergy Verified 03/31/25 14:41 Discharge Plan Disposition Patient Disposition: Home Health Service Condition: Fair Discharge Order Discharge Orders: Discharge Order (Routine); Ordered 07/28/25 Ordered By: Tita Rodriguez Follow up Plan Follow up with: Indy Lora APRN [Primary Care Provider, Medical] - 08/06/25 9:00 am Nora Vega MD [Physician, Pulmonology] - 09/04/25 1:00 pm Prescriptions/Medication Reconciliation: New prednisone 20 mg Tablet 40 mg PO DAILY 3 Days Qty: 6 0RF azithromycin 250 mg tablet 250 mg PO DAILY Qty: 2 0RF Continued meloxicam 15 mg tablet 15 mg PO DAILY montelukast 10 mg tablet 10 mg PO HS Trelegy Ellipta 100-62.5-25 mcg blister with device 1 inh inhalation DAILY 90 Days Qty: 60 3RF furosemide [Lasix] 40 mg tablet 40 mg PO DAILY albuterol sulfate 90 mcg/actuation HFA aerosol inhaler 2 inh inhalation QIDP PRN (Reason: shortness of breath or wheezing) rivastigmine 4.6 mg/24 hour Patch 24 Hour 4.6 mg topical Q48H Rx Instructions: changes every other day due to nausea hydrocodone-acetaminophen 7.5-325 mg tablet 1 tab PO Q6HP PRN (Reason: Mild Pain (Scale Score 1-4)) carvedilol 25 mg tablet 25 mg PO BIDWMEAL buspirone 5 mg Tablet 5 mg PO TID 30 Days Qty: 90 0RF hydroxyzine pamoate 25 mg Capsule 25 mg PO TIDP PRN (Reason: Anxiety) 30 Days Qty: 60 0RF escitalopram oxalate 20 mg Tablet 20 mg PO DAILY 30 Days Qty: 30 0RF potassium chloride [Klor-Con M20] 20 mEq tablet,ER particles/crystals 20 meq PO DAILY Qty: 30 0RF atorvastatin 40 mg Tablet 40 mg PO HS 30 Days Qty: 30 0RF clopidogrel 75 mg Tablet 75 mg PO DAILY 30 Days Qty: 30 0RF spironolactone 25 mg Tablet 25 mg PO DAILY 30 Days Qty: 30 0RF Jardiance 10 mg Tablet 10 mg PO DAILY 30 Days Qty: 30 0RF Changed losartan 50 mg tablet 25 mg PO DAILY 30 Days Qty: 0 0RF Problem Reconciliation Problems Reviewed?: Yes Patient Discharge Instructions ACTIVITY: Continue current activity and Ambulate as tolerated DIET: continue same diet Patient Instructions: DI for Syncope in Adults (Fainting), DI for Chronic Obstructive Pulmonary Disease, Stop Light COPD, Stop Light Heart Failure Print Language: [place] Providers Primary Care Provider: Indy Lora Admit Provider: Mihai Son Attending Provider: Mihai Son
--- NOTE | 2025-07-30 09:59 | SW/DCPLANNER ---
Phoned patient x2. Left message with name and a call back number. Lion Robles
== END 2025-07-28 14:39 | disposition home health service (06) | DRG 190 ==
LOC: ER 21:18 → 2ND 21:31
PROVIDERS: Internal Medicine Adolescent Medicine; Internal Medicine Pulmonary Disease; Nurse Practitioner Acute Care; Physician Assistant; Admitting Provider Student in an Organized Health Care Education/Training Program; Emergency Provider Student in an Organized Health Care Education/Training Program; PCP Nurse Practitioner; Visit Provider Student in an Organized Health Care Education/Training Program
DX: J44.1 Chronic obstructive pulmonary disease with (acute) exacerbation (principal); J12.9 Viral pneumonia, unspecified; J96.21 Acute and chronic respiratory failure with hypoxia; I13.0 Hypertensive heart and chronic kidney disease with heart failure and stage 1 through stage 4 chronic kidney disease, or unspecified chronic kidney disease; I50.32 Chronic diastolic (congestive) heart failure; E87.20 Acidosis, unspecified; J96.12 Chronic respiratory failure with hypercapnia; J20.6 Acute bronchitis due to rhinovirus; I65.22 Occlusion and stenosis of left carotid artery; E04.1 Nontoxic single thyroid nodule; N18.32 Chronic kidney disease, stage 3b; E78.2 Mixed hyperlipidemia; I25.10 Atherosclerotic heart disease of native coronary artery without angina pectoris; Z99.81 Dependence on supplemental oxygen; D63.1 Anemia in chronic kidney disease; J44.0 Chronic obstructive pulmonary disease with (acute) lower respiratory infection; D50.0 Iron deficiency anemia secondary to blood loss (chronic); Z79.02 Long term (current) use of antithrombotics/antiplatelets; F41.1 Generalized anxiety disorder; Z95.5 Presence of coronary angioplasty implant and graft; Z87.891 Personal history of nicotine dependence; J20.8 Acute bronchitis due to other specified organisms
CPT/HCPCS: 0223U; 36415; 36600; 70450; 70496; 70498; 71045; 71275; 74177; 80053; 82803; 83690; 83735; 83880; 84484; 85025; 85610; 87040; 89220; 93005; 94640; 97162; 97166; 99285; J0456; J2405; J2919; J7030; J7050; Q9967